=== PATIENT | male | born 1985 | race Caucasian/White ===

== ENCOUNTER 2018-02-27 09:57 | Outpatient (CLI) | payer MEDICAID, SELFPAY ==
[2018-02-27 10:52] LABS: Abs Immature Grans 0.02 k/cumm (0.0-0.09); Absolute Basophil Count 0.05 k/cumm (0.0-0.2); Absolute Eosinophil Count 0.14 k/cumm (0.0-0.7); Absolute Lymphocyte Count 3.72 k/cumm (1.2-3.4); Absolute Monocyte Count 0.57 k/cumm (0.11-0.7); Absolute Neutrophil Count 4.61 k/cumm (1.2-6.7); Basophils % 0.5; Eosinophils % 1.5; HCT 36.1 % (40.0-50.0); HGB 9.7 g/dL (13.5-17.5); Immature Grans % 0.2; Lymphocytes % 40.8; Mean Corp. HGB Concentration 26.9 g/dL (32.0-36.0); Mean Corpuscular Hemoglobin 18.6 pg (27.0-33.0); Mean Corpuscular Volume 69.3 fL (80-95); Mean Platelet Volume 10.4 fL (8.0-11.0); Monocytes % 6.3; Neutrophils % 50.7; Platelet Count 470 x1000/uL (130-400); RBC 5.21 m/cumm (4.50-6.00); RBC Distribution Width 21.8 % (11.8-14.1); White Blood Cell Count 9.11 k/cumm (4.4-10.8)
[2018-02-27 12:01] LABS: Anisocytosis 2+; Diff Comment RBC Morph Reviewed; Hypochromasia 3+; Microcytosis 3+; Polychromasia Present
[2018-02-27 12:02] LABS: Poikilocytes 2+
[2018-02-27 13:07] LABS: ALT 35 U/L (12-78); AST 24 U/L (15-37); Albumin 3.8 g/dL (3.4-5.0); Alkaline Phosphatase 100 U/L (46-116); Anion Gap 20.7 mmol/L (3-11); BUN 14 mg/dL (7-18); Bilirubin, Total 0.2 mg/dL (0.2-1.0); CO2 22.3 mmol/L (21.0-32.0); CREATININE 1.03 mg/dL (0.70-1.30); Chloride 100 mmol/L (98-107); Glucose 129 mg/dL (70-100); Potassium 3.3 mmol/L (3.5-5.1); Sodium 143 mmol/L (136-145); Total Protein 8.2 g/dL (6.4-8.2)
== END 2018-02-27 10:17 ==
PROVIDERS: PCP Family Medicine; Visit Provider Family Medicine
DX: D63.8 Anemia in other chronic diseases classified elsewhere (principal); R53.83 Other fatigue; G80.9 Cerebral palsy, unspecified
CPT/HCPCS: 36415; 80053; 85025

== ENCOUNTER 2018-02-27 11:36 | Outpatient (REF) | payer MEDICAID, SELFPAY ==
[2018-02-27 12:47] LABS: Bilirubin Negative (Negative); Blood Trace-intact (Negative); Clarity Sl Cloudy; Glucose Negative (Negative); Ketones Negative (Negative); Leukocyte Esterase Moderate (Negative); Nitrite Negative (Negative); Specific Gravity 1.015 (1.005-1.025)
[2018-02-27 13:07] LABS: Bacteria Moderate HPF (Negative); Crystals Mod Calcium Oxalate HPF (Negative); Epithelial Cells Few HPF (Negative); Other Cells Negative (Negative); WBC >50 HPF (0-5)
[2018-02-27 13:08] LABS: C & S Indicated? Yes; Casts Negative LPF (Negative); Mucus Negative (Negative)
== END 2018-02-27 11:56 ==
LOC: LBN 11:36
PROVIDERS: PCP Family Medicine; Visit Provider Family Medicine
DX: R53.83 Other fatigue (principal)
CPT/HCPCS: 87077; 81003; 81015; 87086; 87186

== ENCOUNTER 2018-03-06 16:29 | Observation (INO) | payer MEDICAID, SELFPAY ==
[2018-03-06] VITALS (10 sets, daily range): BP systolic 100–168; BP diastolic 64–84; PULSE 56–86; RESP 8–18; TEMP 35.6–36.4; O2SAT 96–100
--- NOTE | 2018-03-06 16:38 | DI.CT_ITS ---
SYMPTOM/DIAGNOSIS: UNRESPONSIVE NONCONTRAST HEAD CT: A noncontrast cranial CT was performed. 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 No evidence of acute intracranial hemorrhage, mass effect or midline shift. CONCLUSION: No evidence of acute change.
--- NOTE | 2018-03-06 16:38 | DI.RAD_ITS ---
SYMPTOM/DIAGNOSIS: UNRESPONSIVE AP CHEST: Note is again made of previously described scoliosis. The heart is not enlarged and the lungs are clear. CONCLUSION: No evidence of acute disease.
--- NOTE | 2018-03-06 16:44 | W.ED.GENAD ---
Discharge Plan Disposition Patient Disposition: [facility] INPATIENT Condition: Serious Discharge Details Chief Complaint: AMS/LOC Clinical Impression: Altered mental status, History of cerebral palsy Reason For Visit: CHANGE MENTAL STATUS Admit Date/Time: 03/06/18 19:20 Admit Provider: Eran Hawk Attending Provider: Eran Hawk Primary Care Provider: Pascual Johnson ED Provider: Luh Banuelos Hospital Course Hospital Course: Mr Holloway is a 32 year old male with PMHx of cerebral palsy, developmental delay, seizure disorder, hydrocephalus s/p [employer]ICE [employer] CLERK shunt, who was admitted to [facility] on 03/06/18 after a witnessed episode of unresponsiveness without any tonic clonic activity. The patient was already being treated as an outpatient for a UTI with bactrim. His UA still showed pyuria on admission. He was initiated on rocephin. CT of his abdomen/pelvis done without contrast today reveals 2 large kidney stones (9 x 6 mm stone, 10 mm stone, both on the Right, causing obstruction/hydroureter). There is also a question of aspiration pneumonia vs atelectasis seen on CT (the patient did have vomiting overnight). The patient came in with elevated carbamazepine level, but it has since normalized. The patient had been hypotensive all day today, but is fluid responsive. His antibiotics were changed to zosyn with the findings of possible aspiration pneumonia on CT. He is hemodynamically stable for transfer to [facility] [place] where he can have urology evaluation/surgical intervention, which we are unable to provide here at [facility] today. He was accepted by Dr Scott of medicine with Dr Cardenas of urology agreeing to consult/perform procedure on patient tomorrow. The patient is not able to consent to procedures. His guardian is George Gaffney, whose paperwork is being forwarded with the patient. Woody Thornton is the on-call public guardian for the [facility] who consented to transfer the patient to [facility] [place]. We appreciate the help of our [facility] [place] colleagues and wish the patient well. Discharge Instructions Forms: Nursing Discharge Form Discharge Data Discharge Date/Time-TO BE ENTERED AT DEPARTURE: 03/06/18 20:12 Medical Decision Making <STACI Tran - Last Filed: 03/10/18 10:50> Patient is a 32-year-old male presenting today, brought in by mother, with chief complaint of unresponsiveness to begin just prior to arrival. She described the patient is limp and unresponsive. Patient does have extensive medical history, please see HPI. At the time of exam, he is unresponsive, he is responsive to painful stimuli. Gag reflex is intact, vital signs are stable and he is protecting his airway. He could be cool at 36.4 ?C with a rectal temp. Blood pressure is 115/73, pulse 82. Oxygen is 98% on room air. Mother does not feel that this is a post ictal event. Reports that this is unusual for postictal behavior for the patient. She does report that his last seizure was approximately 1 week ago. She is currently being treated for urinary tract infection . Patient is incontinent at baseline. She denies any ingestion or exposure to any unusual substance. Denies any trauma. Blood glucose 153 . EKG reviewed by NICHOLE Shelby with rate 62 with no acute ischemic changes. I have ordered a head CT, chest x-ray, laboratory evaluation and urinalysis. Nursing staff will straight cath the patient. At the end of my shift, care was transitioned to Dr. Banuelos with results pending. <Luh Banuelos, DO - Last Filed: 03/07/18 15:25> Please see Massiel Granados's note for initial presentation, exam, and plan. Patient is a 32-year-old male with history of MR, cerebral palsy, blindness, hydrocephalus, seizures, nonverbal and non ambulatory and wheelchair bound at baseline who presents after being found unresponsive today. Caregiver states he was at his baseline this morning and this afternoon and ate well but then awoke from his nap and appeared more unresponsive. He has a history of seizures which she has 3 times monthly. Last seizure was yesterday for which she gave Diastat rectal as well as an extra dose of Tegretol this morning. He states he does not seem postictal as he usually is responsive with touch after this and he did not seem responsive this afternoon after his nap. She states that he opens his eyes at baseline but has not been opening his eyes since this afternoon and not responding to her touch. Patient has normal vital signs. Afebrile. His skin color is jaundiced appearing. Patient had positive gag reflex his airway on arrival. Full altered mental status workup initiated by Massiel on arrival including labs, urinalysis, lactate, blood cultures, CT head, chest x-ray and bolus IV fluids. Plan upon endorsement was to follow-up on labs and likely plan for admission. 1800 --labs and imaging reviewed. CT head and chest x-ray no acute findings. Normal white blood cell count. Hemoglobin stable at 9. Bands 2. Potassium 3.2. Lactate 1.6. Normal liver enzymes. Lipase and TSH within normal limits. Urinalysis notes 20-50 WBCs and trace leukocyte esterase. UDS positive for benzodiazepines but remainder of toxicology screen negative. Caregiver states that patient still altered compared to baseline. Patient moved around in the bed during examination but she states he is usually more active and responsive than this. Discussed with caregiver that the differential diagnosis can include seizure and postictal state, UTI, dehydration. At this point in time with a normal white blood cell count, afebrile, no tachycardia, normal blood pressure, do not suspect meningitis and will defer on LP at this time and Dr. Hawk agreeable at this time. Caregiver okay with plan for admission. 1830 -- d/w hospitalist - accepts pt for admission. Medical Records Medical records reviewed: Yes I reviewed the patient's medical records. Imaging Data Radiologic Study: Radiologist's impression: CT Head Without Contrast EXAM DATE/TIME: 03/06/2018 5:08 PM FINDINGS: Tubes, catheters and devices: There is a stable appearance to 2 left parietal ventriculostomy catheters. 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 There is prominence of sulci greater on the left, with a smaller left cerebral hemisphere compared to the right. The cerebellum appears small as well. Ventricles: Ventricles again appear slitlike. Bones/joints: Normal. No acute fracture. Sinuses: Normal as visualized. No acute sinusitis. Mastoid air cells: Normal as visualized. No mastoid effusion. Soft tissues: Normal. IMPRESSION: 1. There is a stable appearance to 2 left parietal ventriculostomy catheters. 2. Ventricles again appear slitlike. Radiologic Study #2: Attestation: I personally reviewed and interpreted this imaging study as follows: Radiologist's impression: XR Chest, 1 View EXAM DATE/TIME: 03/06/2018 5:16 PM FINDINGS: Lungs: Unremarkable. No consolidation. Pleural space: Unremarkable. No pleural effusion. No pneumothorax. Heart/Mediastinum: Unremarkable. No cardiomegaly. Bones/joints: There is marked levoscoliosis of the midlumbar spine, with rotatory scoliosis as well. This was seen previously as well. IMPRESSION: No acute abnormality is seen. Lab Data Lab results reviewed: Yes I reviewed the patient's lab results. 03/06/18 17:00 Urine - Reflex from Ua Urine Culture - Preliminary 03/06/18 16:38 Blood Blood Culture - Pending Laboratory Tests Range/Units 03/06/18 03/06/18 03/06/18 16:48 16:48 16:48 WBC (4.4-10.8) k/cumm 10.27 RBC (4.50-6.00) m/cumm 4.75 Hgb (13.5-17.5) g/dL 9.0 L Hct (40.0-50.0) % 31.8 L MCV (80-95) fL 66.9 L MCH (27.0-33.0) pg 18.9 L MCHC (32.0-36.0) g/dL 28.3 L RDW (11.8-14.1) % 20.4 H Plt Count (130-400) x1000/uL 532 H MPV (8.0-11.0) fL 9.6 Immature Gran % See Differential Neutrophils % 54.0 Lymphocytes % 28.0 Monocytes % 8.0 Eosinophils % 4.0 Basophils % 0.0 Absolute Neutrophils (1.2-6.7) k/cumm 5.75 Band Neutrophils % 2.0 Absolute Lymphocytes (1.2-3.4) k/cumm 3.29 Absolute Monocytes (0.11-0.7) k/cumm 0.82 H Absolute Eosinophils (0.0-0.7) k/cumm 0.41 Absolute Basophils (0.0-0.2) k/cumm 0.00 Metamyelocytes % 0.0 Myelocytes % 0.0 Promyelocytes % 0 Differential Comment Manual differential Atypical Lymphocytes 4 Other Cell Type 0 RBC Morphology See below Polychromasia Present Hypochromasia 2+ Anisocytosis 2+ Microcytosis 3+ Ovalocytes Sodium (136-145) mmol/L 138 Potassium (3.5-5.1) mmol/L 3.2 L Chloride (98-107) mmol/L 100 Carbon Dioxide (21.0-32.0) mmol/L 26.7 Anion Gap (3-11) mmol/L 11.3 H BUN (7-18) mg/dL 15 Creatinine (0.70-1.30) mg/dL 0.91 Estimated GFR/1.73 m2 (mL/min/1.73m2) >= 60.00 Glucose (70-100) mg/dL 152 H Lactate (0.6-1.4) mmol/L 1.5 H Calcium (8.5-10.1) mg/dL 8.8 Magnesium (1.8-2.4) mg/dL Total Bilirubin (0.2-1.0) mg/dL 0.2 AST (15-37) U/L 23 ALT (12-78) U/L 34 Alkaline Phosphatase (46-116) U/L 91 Total Protein (6.4-8.2) g/dL 7.8 Albumin (3.4-5.0) g/dL 3.6 Lipase (73-393) U/L 132 TSH (0.358-3.74) uIU/mL 1.01 Urine Color (Yellow) Urine Clarity Urine pH (5-8) Ur Specific [place] (1.005-1.025) Urine Protein (Negative) mg/dL Urine Ketones (Negative) mg/dL Urine Blood (Negative) Urine Nitrite (Negative) Urine Bilirubin (Negative) Urine Urobilinogen (Up TO 0.2) EU/dL Ur Leukocyte Esterase (Negative) Urine RBC (0-2) Urine WBC (0-5) HPF Ur Epithelial Cells (Negative) HPF Urine Crystals (Negative) HPF Urine Bacteria (Negative) HPF Urine Casts (Negative) LPF Urine Mucus (Negative) Ur Culture Indicated? Urine Glucose (Negative) mg/dL Salicylates (2.8-20.0) mg/dL < 2.8 L Urine Opiates Screen (Negative) Urine Methadone Screen (Negative) Acetaminophen (10-30) ug/mL < 2 L Ur Barbiturates Screen (Negative) Carbamazepine (4.0-12.0) ug/mL Ur Tricyclics Screen (Negative) Ur Amphetamines Screen (Negative) U Benzodiazepines Scrn (Negative) Urine Cocaine Screen (Negative) Ur THC Screen (Negative) Range/Units 03/06/18 03/06/18 03/06/18 17:00 17:00 18:30 WBC (4.4-10.8) k/cumm RBC (4.50-6.00) m/cumm Hgb (13.5-17.5) g/dL Hct (40.0-50.0) % MCV (80-95) fL MCH (27.0-33.0) pg MCHC (32.0-36.0) g/dL RDW (11.8-14.1) % Plt Count (130-400) x1000/uL MPV (8.0-11.0) fL Immature Gran % Neutrophils % Lymphocytes % Monocytes % Eosinophils % Basophils % Absolute Neutrophils (1.2-6.7) k/cumm Band Neutrophils % Absolute Lymphocytes (1.2-3.4) k/cumm Absolute Monocytes (0.11-0.7) k/cumm Absolute Eosinophils (0.0-0.7) k/cumm Absolute Basophils (0.0-0.2) k/cumm Metamyelocytes % Myelocytes % Promyelocytes % Differential Comment Atypical Lymphocytes Other Cell Type RBC Morphology Polychromasia Hypochromasia Anisocytosis Microcytosis Ovalocytes Sodium (136-145) mmol/L Potassium (3.5-5.1) mmol/L Chloride (98-107) mmol/L Carbon Dioxide (21.0-32.0) mmol/L Anion Gap (3-11) mmol/L BUN (7-18) mg/dL Creatinine (0.70-1.30) mg/dL Estimated GFR/1.73 m2 (mL/min/1.73m2) Glucose (70-100) mg/dL Lactate (0.6-1.4) mmol/L 1.6 H Calcium (8.5-10.1) mg/dL Magnesium (1.8-2.4) mg/dL Total Bilirubin (0.2-1.0) mg/dL AST (15-37) U/L ALT (12-78) U/L Alkaline Phosphatase (46-116) U/L Total Protein (6.4-8.2) g/dL Albumin (3.4-5.0) g/dL Lipase (73-393) U/L TSH (0.358-3.74) uIU/mL Urine Color (Yellow) Yellow Urine Clarity Clear Urine pH (5-8) 5.5 Ur Specific [place] (1.005-1.025) 1.020 Urine Protein (Negative) mg/dL Negative Urine Ketones (Negative) mg/dL Negative Urine Blood (Negative) Moderate H Urine Nitrite (Negative) Negative Urine Bilirubin (Negative) Negative Urine Urobilinogen (Up TO 0.2) EU/dL 0.2 Ur Leukocyte Esterase (Negative) Trace H Urine RBC (0-2) 10-20 H Urine WBC (0-5) HPF 20-50 Ur Epithelial Cells (Negative) HPF Rare Urine Crystals (Negative) HPF Negative Urine Bacteria (Negative) HPF Rare Urine Casts (Negative) LPF Negative Urine Mucus (Negative) Trace Ur Culture Indicated? Yes Urine Glucose (Negative) mg/dL Negative Salicylates (2.8-20.0) mg/dL Urine Opiates Screen (Negative) Negative Urine Methadone Screen (Negative) Negative Acetaminophen (10-30) ug/mL Ur Barbiturates Screen (Negative) Negative Carbamazepine (4.0-12.0) ug/mL Ur Tricyclics Screen (Negative) Negative Ur Amphetamines Screen (Negative) Negative U Benzodiazepines Scrn (Negative) Positive Urine Cocaine Screen (Negative) Negative Ur THC Screen (Negative) Negative Range/Units 03/06/18 03/07/18 03/07/18 18:30 06:50 11:15 WBC (4.4-10.8) k/cumm RBC (4.50-6.00) m/cumm Hgb (13.5-17.5) g/dL Hct (40.0-50.0) % MCV (80-95) fL MCH (27.0-33.0) pg MCHC (32.0-36.0) g/dL RDW (11.8-14.1) % Plt Count (130-400) x1000/uL MPV (8.0-11.0) fL Immature Gran % Neutrophils % Lymphocytes % Monocytes % Eosinophils % Basophils % Absolute Neutrophils (1.2-6.7) k/cumm Band Neutrophils % Absolute Lymphocytes (1.2-3.4) k/cumm Absolute Monocytes (0.11-0.7) k/cumm Absolute Eosinophils (0.0-0.7) k/cumm Absolute Basophils (0.0-0.2) k/cumm Metamyelocytes % Myelocytes % Promyelocytes % Differential Comment Atypical Lymphocytes Other Cell Type RBC Morphology Polychromasia Hypochromasia Anisocytosis Microcytosis Ovalocytes Sodium (136-145) mmol/L 141 Potassium (3.5-5.1) mmol/L 4.0 D Chloride (98-107) mmol/L 107 Carbon Dioxide (21.0-32.0) mmol/L 25.0 Anion Gap (3-11) mmol/L 9.0 BUN (7-18) mg/dL 10 Creatinine (0.70-1.30) mg/dL 0.69 L Estimated GFR/1.73 m2 (mL/min/1.73m2) >= 60.00 Glucose (70-100) mg/dL 98 D Lactate (0.6-1.4) mmol/L Calcium (8.5-10.1) mg/dL 9.0 Magnesium (1.8-2.4) mg/dL 2.0 Total Bilirubin (0.2-1.0) mg/dL AST (15-37) U/L ALT (12-78) U/L Alkaline Phosphatase (46-116) U/L Total Protein (6.4-8.2) g/dL Albumin (3.4-5.0) g/dL Lipase (73-393) U/L TSH (0.358-3.74) uIU/mL Urine Color (Yellow) Urine Clarity Urine pH (5-8) Ur Specific [place] (1.005-1.025) Urine Protein (Negative) mg/dL Urine Ketones (Negative) mg/dL Urine Blood (Negative) Urine Nitrite (Negative) Urine Bilirubin (Negative) Urine Urobilinogen (Up TO 0.2) EU/dL Ur Leukocyte Esterase (Negative) Urine RBC (0-2) Urine WBC (0-5) HPF Ur Epithelial Cells (Negative) HPF Urine Crystals (Negative) HPF Urine Bacteria (Negative) HPF Urine Casts (Negative) LPF Urine Mucus (Negative) Ur Culture Indicated? Urine Glucose (Negative) mg/dL Salicylates (2.8-20.0) mg/dL Urine Opiates Screen (Negative) Urine Methadone Screen (Negative) Acetaminophen (10-30) ug/mL Ur Barbiturates Screen (Negative) Carbamazepine (4.0-12.0) ug/mL 23.8 H* 9.5 Ur Tricyclics Screen (Negative) Ur Amphetamines Screen (Negative) U Benzodiazepines Scrn (Negative) Urine Cocaine Screen (Negative) Ur THC Screen (Negative) Below labs populated into chart after pt admitted and not interpreted or followed by me (Dr. Banuelos) after admission. Range/Units 03/07/18 03/07/18 11:15 11:15 WBC (4.4-10.8) k/cumm 9.93 RBC (4.50-6.00) m/cumm 4.14 L Hgb (13.5-17.5) g/dL 7.7 L Hct (40.0-50.0) % 28.3 L MCV (80-95) fL 68.4 L MCH (27.0-33.0) pg 18.6 L MCHC (32.0-36.0) g/dL 27.2 L RDW (11.8-14.1) % 20.6 H Plt Count (130-400) x1000/uL 531 H MPV (8.0-11.0) fL 9.9 Immature Gran % 0.2 Neutrophils % 73.2 Lymphocytes % 16.4 Monocytes % 8.3 Eosinophils % 1.6 Basophils % 0.3 Absolute Neutrophils (1.2-6.7) k/cumm 7.27 H Band Neutrophils % Absolute Lymphocytes (1.2-3.4) k/cumm 1.63 Absolute Monocytes (0.11-0.7) k/cumm 0.82 H Absolute Eosinophils (0.0-0.7) k/cumm 0.16 Absolute Basophils (0.0-0.2) k/cumm 0.03 Metamyelocytes % Myelocytes % Promyelocytes % Differential Comment Rbc morph reviewed Atypical Lymphocytes Other Cell Type RBC Morphology See below Polychromasia Hypochromasia 3+ Anisocytosis Microcytosis 2+ Ovalocytes 2+ Sodium (136-145) mmol/L Potassium (3.5-5.1) mmol/L Chloride (98-107) mmol/L Carbon Dioxide (21.0-32.0) mmol/L Anion Gap (3-11) mmol/L BUN (7-18) mg/dL Creatinine (0.70-1.30) mg/dL Estimated GFR/1.73 m2 (mL/min/1.73m2) Glucose (70-100) mg/dL Lactate (0.6-1.4) mmol/L 1.2 Calcium (8.5-10.1) mg/dL Magnesium (1.8-2.4) mg/dL Total Bilirubin (0.2-1.0) mg/dL AST (15-37) U/L ALT (12-78) U/L Alkaline Phosphatase (46-116) U/L Total Protein (6.4-8.2) g/dL Albumin (3.4-5.0) g/dL Lipase (73-393) U/L TSH (0.358-3.74) uIU/mL Urine Color (Yellow) Urine Clarity Urine pH (5-8) Ur Specific [place] (1.005-1.025) Urine Protein (Negative) mg/dL Urine Ketones (Negative) mg/dL Urine Blood (Negative) Urine Nitrite (Negative) Urine Bilirubin (Negative) Urine Urobilinogen (Up TO 0.2) EU/dL Ur Leukocyte Esterase (Negative) Urine RBC (0-2) Urine WBC (0-5) HPF Ur Epithelial Cells (Negative) HPF Urine Crystals (Negative) HPF Urine Bacteria (Negative) HPF Urine Casts (Negative) LPF Urine Mucus (Negative) Ur Culture Indicated? Urine Glucose (Negative) mg/dL Salicylates (2.8-20.0) mg/dL Urine Opiates Screen (Negative) Urine Methadone Screen (Negative) Acetaminophen (10-30) ug/mL Ur Barbiturates Screen (Negative) Carbamazepine (4.0-12.0) ug/mL Ur Tricyclics Screen (Negative) Ur Amphetamines Screen (Negative) U Benzodiazepines Scrn (Negative) Urine Cocaine Screen (Negative) Ur THC Screen (Negative) HPI <STACI Tran - Last Filed: 03/10/18 10:50> General Mode of arrival: wheelchair. Date/Time Provider Initiated Documentation: 03/06/18 16:36. Limitations to Documentation: altered mental status. Information obtained by: family. HPI Narrative: Patient 32-year-old male with history of GERD, epilepsy, mental retardation, scoliosis, hydrocephalus, CP, incontinence, blindness, Mckenzie's esophagus, anemia, brought in by mother today with chief complaint of unresponsiveness. She reports a prior to his nap today he was at his baseline. Patient is nonverbal at baseline. However, she reports that when he awoke from his nap he became limp and unresponsive. She reports that he is currently being treated for a urinary tract infection. Denies any recent changes medications. Denies any known trauma. Denies any fevers or chills. Denies any ingestions. Mother reports that he had typical lunch prior to nap. She does report that he is currently being treated for urinary tract infection Related Data Home Medications Medication Instructions Recorded Confirmed Perla Protect 1 gm PRN PRN 05/31/17 03/06/18 nystatin 1 gm PRN PRN 05/31/17 02/24/18 Pediatric Balanced Nutrition 1 bottle PO BID #60 bottle 07/08/17 03/06/18 acetaminophen 650 mg RC Q4H PRN #90 supp MDD 08/08/17 03/06/18 3000 mg docusate sodium 100 mg capsule 100 mg PO BID #180 cap 11/21/17 03/06/18 polyethylene glycol 3350 17 gram 17 gm PO DAILY PRN #90 each 12/26/17 02/24/18 oral powder packet Tegretol XR 400 mg tablet,extended 400 mg PO BID #200 tab-cap NS 02/24/18 03/06/18 release cholecalciferol (vitamin D3) 1,000 1,000 unit PO DAILY #100 tab-cap 02/24/18 03/06/18 unit tablet epinephrine 0.3 mg/0.3 mL 0.3 mg IM ONCE #2 pen 02/24/18 03/06/18 injection, auto-injector gabapentin 800 mg tablet 800 mg PO TID #270 tab 02/24/18 03/06/18 multivitamin tablet 1 tab PO DAILY #100 tab-cap 02/24/18 03/06/18 pantoprazole 40 mg tablet,delayed 40 mg PO BID #180 tab-cap 02/24/18 02/24/18 release pyridoxine (vitamin B6) 50 mg 50 mg PO DAILY #90 cap 02/24/18 02/24/18 capsule simethicone 80 mg chewable tablet 80 mg PO AC #100 tab.chew 02/24/18 02/24/18 clonazepam 0.5 mg PO ONCE PRN 03/06/18 03/06/18 piperacillin-tazobactam [Zosyn] 3.375 gm IV Q8H #10 each 03/07/18 Previous Rx's Medication Instructions Recorded acetaminophen 650 mg RC Q4H PRN #90 supp MDD 08/08/17 3000 mg docusate sodium 100 mg capsule 100 mg PO BID #180 cap 11/21/17 polyethylene glycol 3350 17 gram 17 gm PO DAILY PRN #90 each 12/26/17 oral powder packet Tegretol XR 400 mg tablet,extended 400 mg PO BID #200 tab-cap NS 02/24/18 release cholecalciferol (vitamin D3) 1,000 1,000 unit PO DAILY #100 tab-cap 02/24/18 unit tablet epinephrine 0.3 mg/0.3 mL 0.3 mg IM ONCE #2 pen 02/24/18 injection, auto-injector gabapentin 800 mg tablet 800 mg PO TID #270 tab 02/24/18 multivitamin tablet 1 tab PO DAILY #100 tab-cap 02/24/18 pantoprazole 40 mg tablet,delayed 40 mg PO BID #180 tab-cap 02/24/18 release pyridoxine (vitamin B6) 50 mg 50 mg PO DAILY #90 cap 02/24/18 capsule simethicone 80 mg chewable tablet 80 mg PO AC #100 tab.chew 02/24/18 piperacillin-tazobactam [Zosyn] 3.375 gm IV Q8H #10 each 03/07/18 Allergies Allergy/AdvReac Type Severity Reaction Status Date / Time latex Allergy Severe ANAPHYLAXIS Unverified 03/06/18 17:16 venom-honey bee Allergy Unknown Unverified 03/06/18 17:16 General Stated Complaint: AMS/LOC JUANJO: 1 Review of Systems <STACI Tran - Last Filed: 03/10/18 10:50> Review of Systems Unobtainable due to mental condition [facility] <STACI Tran - Last Filed: 03/10/18 10:50> Medical History GERD (gastroesophageal reflux disease) (Chronic) Vitamin D deficiency (Chronic) Focal epilepsy with impairment of consciousness, intractable (Chronic) Mental retardation (Chronic) Idiopathic scoliosis (Chronic) Hydrocephalus (Chronic 04/30/14) Cerebral palsy (Chronic) Bowel and bladder incontinence (Chronic 01/28/14) Blindness of both eyes (Chronic) 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 Sister Neoplasm Maternal Grandfather Cancer Maternal Grandmother Cancer Brother No problems noted. Social History caregiver/support person: Yes household members: caregiver housing: house lives independently: No number of children: 0 current occupational status: disabled pets and animals: No frequency: does not exercise Smoking/Tobacco Use Status: Never alcohol intake: never substance use type: does not use kathryn/restoration: None special kathryn needs: No seatbelt use: always Exam <STACI Tran - Last Filed: 03/10/18 10:50> Const General: frail appearing and lethargic Nutritional Appearance: cachectic and thin Orientation: obtunded Limitations: altered mental status, behavioral limitations, language barrier and physical limitations [facility] Head: normal to inspection, normocephalic and atraumatic General nose exam: external nose normal and nares normal Face and sinus: normal facial exam, sinuses nontender and face symmetric Mouth: oral mucosae normal, lip normal, tongue normal, oropharynx normal, moist mucous membranes and other (gag intact) Throat: posterior oropharynx normal, tonsils normal and uvula midline Resp Effort & Inspection: normal respiratory effort, able to speak in complete sentences and no respiratory distress Auscultation: clear to auscultation bilaterally, no rales, no rhonchi and no wheezes Cardio Rate: regular rate Rhythm: regular rhythm Heart Sounds: S1 normal and S2 normal GI Inspection: scar (has multiple surgical incisions which appear to have healed well) Palpation: soft, not firm, no guarding and not rigid Skin General skin exam: jaundice (around face) Neuro General: gait abnormal, tone abnormal and does not move all extremities Cranial Nerves: gag reflex normal Course <STACI Tran - Last Filed: 03/10/18 10:50> Vital Signs Temperature 36.4 C L 03/06/18 16:35 Pulse 82 03/06/18 16:35 Respiratory Rate 8 L 03/06/18 16:35 Blood Pressure 115/73 03/06/18 16:35 Pulse Oximetry 98 03/06/18 16:35 Temperature 36.4 C L 03/06/18 16:35 Temperature Source Temporal Artery Scan 03/06/18 16:35 Pulse 82 03/06/18 16:35 Respiratory Rate 8 L 03/06/18 16:35 Blood Pressure 115/73 03/06/18 16:35 Pulse Oximetry 98 03/06/18 16:35 Oxygen Delivery Method Room Air 03/06/18 16:35 Oxygen Flow Rate 0 03/06/18 16:35 Lab/Test Results Lab/Test Results: 03/06/18 16:42 Blood Blood Culture - Pending Sign Out <STACI Tran - Last Filed: 03/10/18 10:50> Sign Out Data: Sign Out Comment: At the end of shift, care transitioned to Dr. Banuelos with labs and imaging pending. Last updated by Massiel Granados PA at 03/06/18 17:22
[2018-03-06 16:57] LABS: Abs Immature Grans 0.02 k/cumm (0.0-0.09); HCT 31.8 % (40.0-50.0); Mean Corp. HGB Concentration 28.3 g/dL (32.0-36.0); Mean Corpuscular Hemoglobin 18.9 pg (27.0-33.0); Mean Corpuscular Volume 66.9 fL (80-95); Mean Platelet Volume 9.6 fL (8.0-11.0); Platelet Count 532 x1000/uL (130-400); RBC 4.75 m/cumm (4.50-6.00); RBC Distribution Width 20.4 % (11.8-14.1); White Blood Cell Count 10.27 k/cumm (4.4-10.8)
[2018-03-06] MEDS: Normal Saline 1,000 ML 1000 ML IV (17:00)
--- NOTE | 2018-03-06 17:01 | NUR.NOTE ---
patient responsive to painful stimuli, abnormal for psatient per caregivefr Nursing Note:
[2018-03-06 17:06] LABS: Bilirubin Negative (Negative); Blood Moderate (Negative); Clarity Clear; Glucose Negative (Negative); Ketones Negative (Negative); Leukocyte Esterase Trace (Negative); Nitrite Negative (Negative); Urobilinogen 0.2 EU/dL (Up TO 0.2); pH 5.5 (5-8)
--- NOTE | 2018-03-06 17:07 | ED.GENADUL_ITS ---
Discharge Plan Disposition Patient Disposition: [facility] INPATIENT Condition: Serious Discharge Details Chief Complaint: AMS/LOC Clinical Impression: Altered mental status, History of cerebral palsy Reason For Visit: CHANGE MENTAL STATUS Admit Date/Time: 03/06/18 19:20 Admit Provider: Eran Hawk Attending Provider: Eran Hawk Primary Care Provider: Pascual Johnson ED Provider: Luh Banuelos Hospital Course Hospital Course: Mr Holloway is a 32 year old male with PMHx of cerebral palsy, developmental delay, seizure disorder, hydrocephalus s/p [employer] shunt, who was admitted to [facility] on 03/06/18 after a witnessed episode of unresponsiveness without any tonic clonic activity. The patient was already being treated as an outpatient for a UTI with bactrim. His UA still showed pyuria on admission. He was initiated on rocephin. CT of his abdomen/pelvis done without contrast today reveals 2 large kidney stones (9 x 6 mm stone, 10 mm stone, both on the Right, causing obstruction/hydroureter). There is also a question of aspiration pneumonia vs atelectasis seen on CT (the patient did have vomiting overnight). The patient came in with elevated carbamazepine level, but it has since normalized. The patient had been hypotensive all day today, but is fluid responsive. His antibiotics were changed to zosyn with the findings of possible aspiration pneumonia on CT. He is hemodynamically stable for transfer to [facility] where he can have urology evaluation/surgical intervention, which we are unable to provide here at [facility] today. He was accepted by Dr Scott of medicine with Dr Cardenas of urology agreeing to consult/perform procedure on patient tomorrow. The patient is not able to consent to procedures. His guardian is eGorge Gaffney, whose paperwork is being forwarded with the patient. Woody Thornton is the on-call public guardian for the [facility] who consented to transfer the patient to [facility]. We appreciate the help of our [facility] colleagues and wish the patient well. Discharge Instructions Forms: Nursing Discharge Form Discharge Data Discharge Date/Time-TO BE ENTERED AT DEPARTURE: 03/06/18 20:12 Medical Decision Making <STACI Tran - Last Filed: 03/10/18 10:50> Patient is a 32-year-old male presenting today, brought in by mother, with chief complaint of unresponsiveness to begin just prior to arrival. She described the patient is limp and unresponsive. Patient does have extensive medical history, please see HPI. At the time of exam, he is unresponsive, he is responsive to painful stimuli. Gag reflex is intact, vital signs are stable and he is protecting his airway. He could be cool at 36.4 ?C with a rectal temp. Blood pressure is 115/73, pulse 82. Oxygen is 98% on room air. Mother does not feel that this is a post ictal event. Reports that this is unusual for postictal behavior for the patient. She does report that his last seizure was approximately 1 week ago. She is currently being treated for urinary tract infection . Patient is incontinent at baseline. She denies any ingestion or exposure to any unusual substance. Denies any trauma. Blood glucose 153 . EKG reviewed by NICHOLE Shelby with rate 62 with no acute ischemic changes. I have ordered a head CT, chest x-ray, laboratory evaluation and urinalysis. Nursing staff will straight cath the patient. At the end of my shift, care was transitioned to Dr. Banuelos with results pending. <Luh Banuelos, DO - Last Filed: 03/07/18 15:25> Please see Massiel Granados's note for initial presentation, exam, and plan. Patient is a 32-year-old male with history of MR, cerebral palsy, blindness, hydrocephalus, seizures, nonverbal and non ambulatory and wheelchair bound at baseline who presents after being found unresponsive today. Caregiver states he was at his baseline this morning and this afternoon and ate well but then awoke from his nap and appeared more unresponsive. He has a history of seizures which she has 3 times monthly. Last seizure was yesterday for which she gave Diastat rectal as well as an extra dose of Tegretol this morning. He states he does not seem postictal as he usually is responsive with touch after this and he did not seem responsive this afternoon after his nap. She states that he opens his eyes at baseline but has not been opening his eyes sinc e this afternoon and not responding to her touch. Patient has normal vital signs. Afebrile. His skin color is jaundiced appearing. Patient had positive gag reflex his airway on arrival. Full altered mental status workup initiated by Massiel on arrival including labs, urinalysis, lactate, blood cultures, CT head, chest x-ray and bolus IV fluids. Plan upon endorsement was to follow-up on labs and likely plan for admission. 1800 --labs and imaging reviewed. CT head and chest x-ray no acute findings. Normal white blood cell count. Hemoglobin stable at 9. Bands 2. Potassium 3.2. Lactate 1.6. Normal liver enzymes. Lipase and TSH within normal limits. Urinalysis notes 20-50 WBCs and trace leukocyte esterase. UDS positive for benzodiazepines but remainder of toxicology screen negative. Caregiver states that patient still altered compared to baseline. Patient moved around in the bed during examination but she states he is usually more active and responsive than this. Discussed with caregiver that the differential diagnosis can include seizure and postictal state, UTI, dehydration. At this point in time with a normal white blood cell count, afebrile, no tachycardia, normal blood pressure, do not suspect meningitis and will defer on LP at this time and Dr. Hawk agreeable at this time. Caregiver okay with plan for admission. 1830 -- d/w hospitalist - accepts pt for admission. Medical Records Medical records reviewed: Yes I reviewed the patient's medical records. Imaging Data Radiologic Study: Radiologist's impression: CT Head Without Contrast EXAM DATE/TIME: 03/06/2018 5:08 PM FINDINGS: Tubes, catheters and devices: There is a stable appearance to 2 left parietal ventriculostomy catheters. 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 There is prominence of sulci greater on the left, with a smaller left cerebral hemisphere compared to the right. The cerebellum appears small as well. Ventricles: Ventricles again appear slitlike. Bones/joints: Normal. No acute fracture. Sinuses: Normal as visualized. No acute sinusitis. Mastoid air cells: Normal as visualized. No mastoid effusion. Soft tissues: Normal. IMPRESSION: 1. There is a stable appearance to 2 left parietal ventriculostomy catheters. 2. Ventricles again appear slitlike. Radiologic Study #2: Attestation: I personally reviewed and interpreted this imaging study as follows: Radiologist's impression: XR Chest, 1 View EXAM DATE/TIME: 03/06/2018 5:16 PM FINDINGS: Lungs: Unremarkable. No consolidation. Pleural space: Unremarkable. No pleural effusion. No pneumothorax. Heart/Mediastinum: Unremarkable. No cardiomegaly. Bones/joints: There is marked levoscoliosis of the midlumbar spine, with rotatory scoliosis as well. This was seen previously as well. IMPRESSION: No acute abnormality is seen. Lab Data Lab results reviewed: Yes I reviewed the patient's lab results. 03/06/18 17:00 Urine - Reflex from Ua Urine Culture - Preliminary 03/06/18 16:38 Blood Blood Culture - Pending Laboratory Tests Range/Units 03/06/18 03/06/18 03/06/18 16:48 16:48 16:48 WBC (4.4-10.8) k/cumm 10.27 RBC (4.50-6.00) m/cumm 4.75 Hgb (13.5-17.5) g/dL 9.0 L Hct (40.0-50.0) % 31.8 L MCV (80-95) fL 66.9 L MCH (27.0-33.0) pg 18.9 L MCHC (32.0-36.0) g/dL 28.3 L RDW (11.8-14.1) % 20.4 H Plt Count (130-400) x1000/uL 532 H MPV (8.0-11.0) fL 9.6 Immature Gran % See Differential Neutrophils % 54.0 Lymphocytes % 28.0 Monocytes % 8.0 Eosinophils % 4.0 Basophils % 0.0 Absolute Neutrophils (1.2-6.7) k/cumm 5.75 Band Neutrophils % 2.0 Absolute Lymphocytes (1.2-3.4) k/cumm 3.29 Absolute Monocytes (0.11-0.7) k/cumm 0.82 H Absolute Eosinophils (0.0-0.7) k/cumm 0.41 Absolute Basophils (0.0-0.2) k/cumm 0.00 Metamyelocytes % 0.0 Myelocytes % 0.0 Promyelocytes % 0 Differential Comment Manual differential Atypical Lymphocytes 4 Other Cell Type 0 RBC Morphology See below Polychromasia Present Hypochromasia 2+ Anisocytosis 2+ Microcytosis 3+ Ovalocytes Sodium (136-145) mmol/L 138 Potassium (3.5-5.1) mmol/L 3.2 L Chloride (98-107) mmol/L 100 Carbon Dioxide (21.0-32.0) mmol/L 26.7 Anion Gap (3-11) mmol/L 11.3 H BUN (7-18) mg/dL 15 Creatinine (0.70-1.30) mg/dL 0.91 Estimated GFR/1.73 m2 (mL/min/1.73m2) >= 60.00 Glucose (70-100) mg/dL 152 H Lactate (0.6-1.4) mmol/L 1.5 H Calcium (8.5-10.1) mg/dL 8.8 Magnesium (1.8-2.4) mg/dL Total Bilirubin (0.2-1.0) mg/dL 0.2 AST (15-37) U/L 23 ALT (12-78) U/L 34 Alkaline Phosphatase (46-116) U/L 91 Total Protein (6.4-8.2) g/dL 7.8 Albumin (3.4-5.0) g/dL 3.6 Lipase (73-393) U/L 132 TSH (0.358-3.74) uIU/mL 1.01 Urine Color (Yellow) Urine Clarity Urine pH (5-8) Ur Specific [place] (1.005-1.025) Urine Protein (Negative) mg/dL Urine Ketones (Negative) mg/dL Urine Blood (Negative) Urine Nitrite (Negative) Urine Bilirubin (Negative) Urine Urobilinogen (Up TO 0.2) EU/dL Ur Leukocyte Esterase (Negative) Urine RBC (0-2) Urine WBC (0-5) HPF Ur Epithelial Cells (Negative) HPF Urine Crystals (Negative) HPF Urine Bacteria (Negative) HPF Urine Casts (Negative) LPF Urine Mucus (Negative) Ur Culture Indicated? Urine Glucose (Negative) mg/dL Salicylates (2.8-20.0) mg/dL < 2.8 L Urine Opiates Screen (Negative) Urine Methadone Screen (Negative) Acetaminophen (10-30) ug/mL < 2 L Ur Barbiturates Screen (Negative) Carbamazepine (4.0-12.0) ug/mL Ur Tricyclics Screen (Negative) Ur Amphetamines Screen (Negative) U Benzodiazepines Scrn (Negative) Urine Cocaine Screen (Negative) Ur THC Screen (Negative) Range/Units 03/06/18 03/06/18 03/06/18 17:00 17:00 18:30 WBC (4.4-10.8) k/cumm RBC (4.50-6.00) m/cumm Hgb (13.5-17.5) g/dL Hct (40.0-50.0) % MCV (80-95) fL MCH (27.0-33.0) pg MCHC (32.0-36.0) g/dL RDW (11.8-14.1) % Plt Count (130-400) x1000/uL MPV (8.0-11.0) fL Immature Gran % Neutrophils % Lymphocytes % Monocytes % Eosinophils % Basophils % Absolute Neutrophils (1.2-6.7) k/cumm Band Neutrophils % Absolute Lymphocytes (1.2-3.4) k/cumm Absolute Monocytes (0.11-0.7) k/cumm Absolute Eosinophils (0.0-0.7) k/cumm Absolute Basophils (0.0-0.2) k/cumm Metamyelocytes % Myelocytes % Promyelocytes % Differential Comment Atypical Lymphocytes Other Cell Type RBC Morphology Polychromasia Hypochromasia Anisocytosis Microcytosis Ovalocytes Sodium (136-145) mmol/L Potassium (3.5-5.1) mmol/L Chloride (98-107) mmol/L Carbon Dioxide (21.0-32.0) mmol/L Anion Gap (3-11) mmol/L BUN (7-18) mg/dL Creatinine (0.70-1.30) mg/dL Estimated GFR/1.73 m2 (mL/min/1.73m2) Glucose (70-100) mg/dL Lactate (0.6-1.4) mmol/L 1.6 H Calcium (8.5-10.1) mg/dL Magnesium (1.8-2.4) mg/dL Total Bilirubin (0.2-1.0) mg/dL AST (15-37) U/L ALT (12-78) U/L Alkaline Phosphatase (46-116) U/L Total Protein (6.4-8.2) g/dL Albumin (3.4-5.0) g/dL Lipase (73-393) U/L TSH (0.358-3.74) uIU/mL Urine Color (Yellow) Yellow Urine Clarity Clear Urine pH (5-8) 5.5 Ur Specific [place] (1.005-1.025) 1.020 Urine Protein (Negative) mg/dL Negative Urine Ketones (Negative) mg/dL Negative Urine Blood (Negative) Moderate H Urine Nitrite (Negative) Negative Urine Bilirubin (Negative) Negative Urine Urobilinogen (Up TO 0.2) EU/dL 0.2 Ur Leukocyte Esterase (Negative) Trace H Urine RBC (0-2) 10-20 H Urine WBC (0-5) HPF 20-50 Ur Epithelial Cells (Negative) HPF Rare Urine Crystals (Negative) HPF Negative Urine Bacteria (Negative) HPF Rare Urine Casts (Negative) LPF Negative Urine Mucus (Negative) Trace Ur Culture Indicated? Yes Urine Glucose (Negative) mg/dL Negative Salicylates (2.8-20.0) mg/dL Urine Opiates Screen (Negative) Negative Urine Methadone Screen (Negative) Negative Acetaminophen (10-30) ug/mL Ur Barbiturates Screen (Negative) Negative Carbamazepine (4.0-12.0) ug/mL Ur Tricyclics Screen (Negative) Negative Ur Amphetamines Screen (Negative) Negative U Benzodiazepines Scrn (Negative) Positive Urine Cocaine Screen (Negative) Negative Ur THC Screen (Negative) Negative Range/Units 03/06/18 03/07/18 03/07/18 18:30 06:50 11:15 WBC (4.4-10.8) k/cumm RBC (4.50-6.00) m/cumm Hgb (13.5-17.5) g/dL Hct (40.0-50.0) % MCV (80-95) fL MCH (27.0-33.0) pg MCHC (32.0-36.0) g/dL RDW (11.8-14.1) % Plt Count (130-400) x1000/uL MPV (8.0-11.0) fL Immature Gran % Neutrophils % Lymphocytes % Monocytes % Eosinophils % Basophils % Absolute Neutrophils (1.2-6.7) k/cumm Band Neutrophils % Absolute Lymphocytes (1.2-3.4) k/cumm Absolute Monocytes (0.11-0.7) k/cumm Absolute Eosinophils (0.0-0.7) k/cumm Absolute Basophils (0.0-0.2) k/cumm Metamyelocytes % Myelocytes % Promyelocytes % Differential Comment Atypical Lymphocytes Other Cell Type RBC Morphology Polychromasia Hypochromasia Anisocytosis Microcytosis Ovalocytes Sodium (136-145) mmol/L 141 Potassium (3.5-5.1) mmol/L 4.0 D Chloride (98-107) mmol/L 107 Carbon Dioxide (21.0-32.0) mmol/L 25.0 Anion Gap (3-11) mmol/L 9.0 BUN (7-18) mg/dL 10 Creatinine (0.70-1.30) mg/dL 0.69 L Estimated GFR/1.73 m2 (mL/min/1.73m2) >= 60.00 Glucose (70-100) mg/dL 98 D Lactate (0.6-1.4) mmol/L Calcium (8.5-10.1) mg/dL 9.0 Magnesium (1.8-2.4) mg/dL 2.0 Total Bilirubin (0.2-1.0) mg/dL AST (15-37) U/L ALT (12-78) U/L Alkaline Phosphatase (46-116) U/L Total Protein (6.4-8.2) g/dL Albumin (3.4-5.0) g/dL Lipase (73-393) U/L TSH (0.358-3.74) uIU/mL Urine Color (Yellow) Urine Clarity Urine pH (5-8) Ur Specific [place] (1.005-1.025) Urine Protein (Negative) mg/dL Urine Ketones (Negative) mg/dL Urine Blood (Negative) Urine Nitrite (Negative) Urine Bilirubin (Negative) Urine Urobilinogen (Up TO 0.2) EU/dL Ur Leukocyte Esterase (Negative) Urine RBC (0-2) Urine WBC (0-5) HPF Ur Epithelial Cells (Negative) HPF Urine Crystals (Negative) HPF Urine Bacteria (Negative) HPF Urine Casts (Negative) LPF Urine Mucus (Negative) Ur Culture Indicated? Urine Glucose (Negative) mg/dL Salicylates (2.8-20.0) mg/dL Urine Opiates Screen (Negative) Urine Methadone Screen (Negative) Acetaminophen (10-30) ug/mL Ur Barbiturates Screen (Negative) Carbamazepine (4.0-12.0) ug/mL 23.8 H* 9.5 Ur Tricyclics Screen (Negative) Ur Amphetamines Screen (Negative) U Benzodiazepines Scrn (Negative) Urine Cocaine Screen (Negative) Ur THC Screen (Negative) Below labs populated into chart after pt admitted and not interpreted or followed by me (Dr. Banuelos) after admission. Range/Units 03/07/18 03/07/18 11:15 11:15 WBC (4.4-10.8) k/cumm 9.93 RBC (4.50-6.00) m/cumm 4.14 L Hgb (13.5-17.5) g/dL 7.7 L Hct (40.0-50.0) % 28.3 L MCV (80-95) fL 68.4 L MCH (27.0-33.0) pg 18.6 L MCHC (32.0-36.0) g/dL 27.2 L RDW (11.8-14.1) % 20.6 H Plt Count (130-400) x1000/uL 531 H MPV (8.0-11.0) fL 9.9 Immature Gran % 0.2 Neutrophils % 73.2 Lymphocytes % 16.4 Monocytes % 8.3 Eosinophils % 1.6 Basophils % 0.3 Absolute Neutrophils (1.2-6.7) k/cumm 7.27 H Band Neutrophils % Absolute Lymphocytes (1.2-3.4) k/cumm 1.63 Absolute Monocytes (0.11-0.7) k/cumm 0.82 H Absolute Eosinophils (0.0-0.7) k/cumm 0.16 Absolute Basophils (0.0-0.2) k/cumm 0.03 Metamyelocytes % Myelocytes % Promyelocytes % Differential Comment Rbc morph reviewed Atypical Lymphocytes Other Cell Type RBC Morphology See below Polychromasia Hypochromasia 3+ Anisocytosis Microcytosis 2+ Ovalocytes 2+ Sodium (136-145) mmol/L Potassium (3.5-5.1) mmol/L Chloride (98-107) mmol/L Carbon Dioxide (21.0-32.0) mmol/L Anion Gap (3-11) mmol/L BUN (7-18) mg/dL Creatinine (0.70-1.30) mg/dL Estimated GFR/1.73 m2 (mL/min/1.73m2) Glucose (70-100) mg/dL Lactate (0.6-1.4) mmol/L 1.2 Calcium (8.5-10.1) mg/dL Magnesium (1.8-2.4) mg/dL Total Bilirubin (0.2-1.0) mg/dL AST (15-37) U/L ALT (12-78) U/L Alkaline Phosphatase (46-116) U/L Total Protein (6.4-8.2) g/dL Albumin (3.4-5.0) g/dL Lipase (73-393) U/L TSH (0.358-3.74) uIU/mL Urine Color (Yellow) Urine Clarity Urine pH (5-8) Ur Specific [place] (1.005-1.025) Urine Protein (Negative) mg/dL Urine Ketones (Negative) mg/dL Urine Blood (Negative) Urine Nitrite (Negative) Urine Bilirubin (Negative) Urine Urobilinogen (Up TO 0.2) EU/dL Ur Leukocyte Esterase (Negative) Urine RBC (0-2) Urine WBC (0-5) HPF Ur Epithelial Cells (Negative) HPF Urine Crystals (Negative) HPF Urine Bacteria (Negative) HPF Urine Casts (Negative) LPF Urine Mucus (Negative) Ur Culture Indicated? Urine Glucose (Negative) mg/dL Salicylates (2.8-20.0) mg/dL Urine Opiates Screen (Negative) Urine Methadone Screen (Negative) Acetaminophen (10-30) ug/mL Ur Barbiturates Screen (Negative) Carbamazepine (4.0-12.0) ug/mL Ur Tricyclics Screen (Negative) Ur Amphetamines Screen (Negative) U Benzodiazepines Scrn (Negative) Urine Cocaine Screen (Negative) Ur THC Screen (Negative) HPI <STACI Tran - Last Filed: 03/10/18 10:50> General Mode of arrival: wheelchair . Date/Time Provider Initiated Documentation: 03/06/18 16:36 . Limitations to Documentation: altered mental status . Information obtained by: family . HPI Narrative: Patient 32-year-old male with history of GERD, epilepsy, mental retardation, scoliosis, hydrocephalus, CP, incontinence, blindness, Mckenzie's esophagus, anemia, brought in by mother today with chief complaint of unresponsiveness. She reports a prior to his nap today he was at his baseline. Patient is nonverbal at baseline. However, she reports that when he awoke from his nap he became limp and unresponsive. She reports that he is currently being treated for a urinary tract infection. Denies any recent changes medications. Denies any known trauma. Denies any fevers or chills. Denies any ingestions. Mother reports that he had typical lunch prior to nap. She does report that he is currently being treated for urinary tract infection Related Data Home Medications Medication Instructions Recorded Confirmed Perla Protect 1 gm PRN PRN 05/31/17 03/06/18 nystatin 1 gm PRN PRN 05/31/17 02/24/18 Pediatric Balanced Nutrition 1 bottle PO BID #60 bottle 07/08/17 03/06/18 acetaminophen 650 mg RC Q4H PRN #90 supp MDD 08/08/17 03/06/18 3000 mg docusate sodium 100 mg capsule 100 mg PO BID #180 cap 11/21/17 03/06/18 polyethylene glycol 3350 17 gram 17 gm PO DAILY PRN #90 each 12/26/17 02/24/18 oral powder packet Tegretol XR 400 mg tablet,extended 400 mg PO BID #200 tab-cap NS 02/24/18 03/06/18 release cholecalciferol (vitamin D3) 1,000 1,000 unit PO DAILY #100 tab-cap 02/24/18 03/06/18 unit tablet epinephrine 0.3 mg/0.3 mL 0.3 mg IM ONCE #2 pen 02/24/18 03/06/18 injection, auto-injector gabapentin 800 mg tablet 800 mg PO TID #270 tab 02/24/18 03/06/18 multivitamin tablet 1 tab PO DAILY #100 tab-cap 02/24/18 03/06/18 pantoprazole 40 mg tablet,delayed 40 mg PO BID #180 tab-cap 02/24/18 02/24/18 release pyridoxine (vitamin B6) 50 mg 50 mg PO DAILY #90 cap 02/24/18 02/24/18 capsule simethicone 80 mg chewable tablet 80 mg PO AC #100 tab.chew 02/24/18 02/24/18 clonazepam 0.5 mg PO ONCE PRN 03/06/18 03/06/18 piperacillin-tazobactam [Zosyn] 3.375 gm IV Q8H #10 each 03/07/18 Previous Rx's Medication Instructions Recorded acetaminophen 650 mg RC Q4H PRN #90 supp MDD 08/08/17 3000 mg docusate sodium 100 mg capsule 100 mg PO BID #180 cap 11/21/17 polyethylene glycol 3350 17 gram 17 gm PO DAILY PRN #90 each 12/26/17 oral powder packet Tegretol XR 400 mg tablet,extended 400 mg PO BID #200 tab-cap NS 02/24/18 release cholecalciferol (vitamin D3) 1,000 1,000 unit PO DAILY #100 tab-cap 02/24/18 unit tablet epinephrine 0.3 mg/0.3 mL 0.3 mg IM ONCE #2 pen 02/24/18 injection, auto-injector gabapentin 800 mg tablet 800 mg PO TID #270 tab 02/24/18 multivitamin tablet 1 tab PO DAILY #100 tab-cap 02/24/18 pantoprazole 40 mg tablet,delayed 40 mg PO BID #180 tab-cap 02/24/18 release pyridoxine (vitamin B6) 50 mg 50 mg PO DAILY #90 cap 02/24/18 capsule simethicone 80 mg chewable tablet 80 mg PO AC #100 tab.chew 02/24/18 piperacillin-tazobactam [Zosyn] 3.375 gm IV Q8H #10 each 03/07/18 Allergies Allergy/AdvReac Type Severity Reaction Status Date / Time latex Allergy Severe ANAPHYLAXIS Unverified 03/06/18 17:16 venom-honey bee Allergy Unknown Unverified 03/06/18 17:16 General Stated Complaint: AMS/LOC JUANJO: 1 Review of Systems <STACI Tran - Last Filed: 03/10/18 10:50> Review of Systems Unobtainable due to mental condition [facility] <STACI Tran - Last Filed: 03/10/18 10:50> Medical History GERD (gastroesophageal reflux disease) (Chronic) Vitamin D deficiency (Chronic) Focal epilepsy with impairment of consciousness, intractable (Chronic) Mental retardation (Chronic) Idiopathic scoliosis (Chronic) Hydrocephalus (Chronic 04/30/14) Cerebral palsy (Chronic) Bowel and bladder incontinence (Chronic 01/28/14) Blindness of both eyes (Chronic) 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 Sister Neoplasm Maternal Grandfather Cancer Maternal Grandmother Cancer Brother No problems noted. Social History caregiver/support person: Yes household members: caregiver housing: house lives independently: No number of children: 0 current occupational status: disabled pets and animals: No frequency: does not exercise Smoking/Tobacco Use Status: Never alcohol intake: never substance use type: does not use kathryn/mu-ism: None special kathryn needs: No seatbelt use: always Exam <STACI Tran - Last Filed: 03/10/18 10:50> Const General: frail appearing and lethargic Nutritional Appearance: cachectic and thin Orientation: obtunded Limitations: altered mental status, behavioral limitations, language barrier and physical limitations [facility] Head: normal to inspection, normocephalic and atraumatic General nose exam: external nose normal and nares normal Face and sinus: normal facial exam, sinuses nontender and face symmetric Mouth: oral mucosae normal, lip normal, tongue normal, oropharynx normal, moist mucous membranes and other (gag intact) Throat: posterior oropharynx normal, tonsils normal and uvula midline Resp Effort & Inspection: normal respiratory effort, able to speak in complete sentences and no respiratory distress Auscultation: clear to auscultation bilaterally, no rales, no rhonchi and no wheezes Cardio Rate: regular rate Rhythm: regular rhythm Heart Sounds: S1 normal and S2 normal GI Inspection: scar (has multiple surgical incisions which appear to have healed well) Palpation: soft, not firm, no guarding and not rigid Skin General skin exam: jaundice (around face) Neuro General: gait abnormal, tone abnormal and does not move all extremities Cranial Nerves: gag reflex normal Course <STACI Tran - Last Filed: 03/10/18 10:50> Vital Signs Temperature 36.4 C L 03/06/18 16:35 Pulse 82 03/06/18 16:35 Respiratory Rate 8 L 03/06/18 16:35 Blood Pressure 115/73 03/06/18 16:35 Pulse Oximetry 98 03/06/18 16:35 Temperature 36.4 C L 03/06/18 16:35 Temperature Source Temporal Artery Scan 03/06/18 16:35 Pulse 82 03/06/18 16:35 Respiratory Rate 8 L 03/06/18 16:35 Blood Pressure 115/73 03/06/18 16:35 Pulse Oximetry 98 03/06/18 16:35 Oxygen Delivery Method Room Air 03/06/18 16:35 Oxygen Flow Rate 0 03/06/18 16:35 Lab/Test Results Lab/Test Results: 03/06/18 16:42 Blood Blood Culture - Pending Sign Out <STACI Tran - Last Filed: 03/10/18 10:50> Sign Out Data: Sign Out Comment: At the end of shift, care transitioned to Dr. Banuelos with labs and imaging pending. Last updated by Massiel Granados PA at 03/06/18 17:22
--- NOTE | 2018-03-06 17:16 | NUR.NOTE ---
patient to CT then xray Nursing Note:
[2018-03-06 17:22] LABS: Bacteria Rare HPF (Negative); C & S Indicated? Yes; Casts Negative LPF (Negative); Crystals Negative HPF (Negative); Epithelial Cells Rare HPF (Negative); Mucus Trace (Negative); WBC 20-50 HPF (0-5)
[2018-03-06 17:23] LABS: ALT 34 U/L (12-78); AST 23 U/L (15-37); Albumin 3.6 g/dL (3.4-5.0); Alkaline Phosphatase 91 U/L (46-116); Anion Gap 11.3 mmol/L (3-11); BUN 15 mg/dL (7-18); Bilirubin, Total 0.2 mg/dL (0.2-1.0); CO2 26.7 mmol/L (21.0-32.0); CREATININE 0.91 mg/dL (0.70-1.30); Calcium 8.8 mg/dL (8.5-10.1); Chloride 100 mmol/L (98-107); Glucose 152 mg/dL (70-100); Lipase 132 U/L (73-393); Potassium 3.2 mmol/L (3.5-5.1); Sodium 138 mmol/L (136-145); TSH (W/Ref FT4) 1.01 uIU/mL (0.358-3.74); Total Protein 7.8 g/dL (6.4-8.2)
--- NOTE | 2018-03-06 17:35 | DI.VRAD_ITS ---
EXAM: CT Head Without Contrast EXAM DATE/TIME: 03/06/2018 5:08 PM CLINICAL HISTORY: 32 years old, male; Signs and symptoms; Other: Unreaponsive; Prior surgery; Surgery date: 6+ months TECHNIQUE: Axial computed tomography images of the head/brain without contrast. Coronal and sagittal reformatted images were created and reviewed. COMPARISON: CT HEAD WITHOUT CONTRAST 08/18/2017 12:47 PM FINDINGS: Tubes, catheters and devices: There is a stable appearance to 2 left parietal ventriculostomy catheters. 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 There is prominence of sulci greater on the left, with a smaller left cerebral hemisphere compared to the right. The cerebellum appears small as well. Ventricles: Ventricles again appear slitlike. Bones/joints: Normal. No acute fracture. Sinuses: Normal as visualized. No acute sinusitis. Mastoid air cells: Normal as visualized. No mastoid effusion. Soft tissues: Normal. IMPRESSION: 1. There is a stable appearance to 2 left parietal ventriculostomy catheters. 2. Ventricles again appear slitlike. 3. 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 There is prominence of sulci greater on the left, with a smaller left cerebral hemisphere compared to the right. The cerebellum appears small as well. No acute abnormality or significant interval change is seen. Dictated and Authenticated by: Emerson Porter MD. Ordering:KWABENA Rankin MD
--- NOTE | 2018-03-06 17:36 | DI.VRAD_ITS ---
EXAM: XR Chest, 1 View EXAM DATE/TIME: 03/06/2018 5:16 PM CLINICAL HISTORY: 32 years old, male; Signs and symptoms; Other: Unresponsive TECHNIQUE: XR of the chest, 1 view. COMPARISON: SC PORTABLE CHEST ONE VIEW 05/31/2017 9:14 PM FINDINGS: Lungs: Unremarkable. No consolidation. Pleural space: Unremarkable. No pleural effusion. No pneumothorax. Heart/Mediastinum: Unremarkable. No cardiomegaly. Bones/joints: There is marked levoscoliosis of the midlumbar spine, with rotatory scoliosis as well. This was seen previously as well. IMPRESSION: No acute abnormality is seen. Dictated and Authenticated by: Emerson Porter MD. Ordering:KWABENA Rankin MD
[2018-03-06 17:44] LABS: Absolute Lymphocyte Count 3.29 k/cumm (1.2-3.4); Absolute Monocyte Count 0.82 k/cumm (0.11-0.7); Absolute Neutrophil Count 5.75 k/cumm (1.2-6.7); Atypical Lymphocytes % 4
[2018-03-06 17:45] LABS: Absolute Eosinophil Count 0.41 k/cumm (0.0-0.7); Anisocytosis 2+; Diff Comment Manual Differential; Hypochromasia 2+; Other Cells 0; Promyelocytes % 0 %
[2018-03-06 17:46] LABS: Microcytosis 3+; Polychromasia Present
[2018-03-06 17:47] LABS: Salicylate < 2.8 mg/dL (2.8-20.0)
[2018-03-06 17:48] LABS: *AMPHETAMINES SCREEN URINE Negative (Negative); *BARBITURATES SCREEN URINE Negative (Negative); *BENZODIAZEPINES SCREEN URINE POSITIVE (Negative); Cannabinoids THC Negative (Negative); Cocaine Screen,Urine Negative (Negative); METHADONE URINE SCREEN Negative (Negative); OPIATES URINE SCREEN Negative (Negative)
[2018-03-06 17:56] LABS: Lactate 1.5 mmol/L (0.6-1.4)
[2018-03-06 17:58] LABS: Tricyclic Antidepressants Negative (Negative)
[2018-03-06 18:00] LABS: Acetaminophen < 2 ug/mL (10-30)
--- NOTE | 2018-03-06 18:10 | NUR.NOTE ---
patient denies nausea at the time, refuses pain medication , awiating diagnostics Nursing Note:
[2018-03-06 18:37] LABS: Lactate-non-spesis 1.6 mmol/L (0.6-1.4)
--- NOTE | 2018-03-06 19:04 | HPE_ITS ---
Date of service: 03/06/18 Time of Service: 19:03 Assessment and Plan (1) Change in mental status: Current visit: Yes Status: Acute Change in mental status. adobe architect reports that the patient is improving at this time though still significantly off from baseline. the sudden onset and the signs of improvement suggests perhaps a seizure. Stroke would be another possibility though certainly there is no history of cerebrovascular disease. the UTI could be responsible though the sudden onset would be atypical. Note that this would presume that the Bactrim the patient is on would not be covering any putative infection. Regardless, I think we should continue antibiotics, await urine culture, give IV fluids, replace potasssium and see what develops. I will also add on a Tegretol level. History of Present Illness Chief Complaint: Change in mental status Narrative: Patient is a 32-year-old male with history of developmental delay, hydrocephalus and cerebral palsy. There is history of seizure disorder his adobe architect reports that he was in his usual state of health today (which entails a certain degree of verbal and motor responsiveness) when he suddenly became limp. She did not note any seizure-like activity. He was brought to the emergency room where evaluation was unrevealing except for pyuria (note the patient is on Bactrim for reported UTI although I do not see any urine sample in the record for the date in question, which the adobe architect reports was 03/03). Patient was given a dose of 1 g of Rocephin and admitted for further evaluation and management Past medical history: Developmental delay, scoliosis, hydrocephalus, status post CAN LINE OPERATOR shunt, quadriplegia, blindness. Allergy to latex (anaphylaxis) and be venom. Medications Tylenol as needed vitamin D, Klonopin 0.5 as needed Colace 100 twice daily, Neurontin 800 3 times daily, Multivite, Protonix 40 twice daily, MiraLAX as needed, pyridoxine 50 mg daily, simethicone 80 mg before meals, Tegretol-XR 400 twice daily, Bactrim DS twice daily Physical exam temp 36.3 blood pressure 106/67, pulse 80, respirations 14, O2 sat 100% on room air. HEENT shows no signs of head trauma cornea opaque bilateral lungs clear, heart regular rate and rhythm, abdomen soft nontender, exam shows no scrotal redness or swelling, rectal exam is deferred neurological patient has nonspecific response to light touch, no verbal output Laboratory: White count is 10.2, hematocrit 31 platelet 532 sodium 138 potassium 3.2 chloride 100 bicarb 26 BUN 15 creatinine 0.9 glucose 152 total bili 0.2 AST 23 ALT 34 TSH 1.0 urinalysis shows 10-20 red cells 20-50 white cells urine tox screen positive benzodiazepines chest x-ray shows no acute disease head CT shows no change from baseline, ventriculostomy tubes in place with slit ventricles, all baseline Review of Systems Review of Systems Unobtainable due to mental condition [facility] Medical History GERD (gastroesophageal reflux disease) (Chronic) Vitamin D deficiency (Chronic) Focal epilepsy with impairment of consciousness, intractable (Chronic) Mental retardation (Chronic) Idiopathic scoliosis (Chronic) Hydrocephalus (Chronic 04/30/14) Cerebral palsy (Chronic) Bowel and bladder incontinence (Chronic 01/28/14) 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 Sister Neoplasm Maternal Grandfather Cancer Maternal Grandmother Cancer Brother No problems noted. Social History caregiver/support person: Yes household members: caregiver housing: house lives independently: No number of children: 0 current occupational status: disabled pets and animals: No frequency: does not exercise Smoking/Tobacco Use Status: Never alcohol intake: never substance use type: does not use kathryn/latter-day: None special kathryn needs: No seatbelt use: always Meds Home Medications Medication Instructions Recorded Confirmed Type Perla Protect 1 gm PRN PRN 05/31/17 03/06/18 History nystatin 1 gm PRN PRN 05/31/17 02/24/18 History Pediatric Balanced Nutrition 1 bottle PO BID #60 bottle 07/08/17 03/06/18 History acetaminophen 650 mg RC Q4H PRN #90 supp MDD 08/08/17 03/06/18 Rx 3000 mg docusate sodium 100 mg capsule 100 mg PO BID #180 cap 11/21/17 03/06/18 Rx polyethylene glycol 3350 17 gram 17 gm PO DAILY PRN #90 each 12/26/17 02/24/18 Rx oral powder packet Tegretol XR 400 mg tablet,extended 400 mg PO BID #200 tab-cap NS 02/24/18 03/06/18 Rx release cholecalciferol (vitamin D3) 1,000 1,000 unit PO DAILY #100 tab-cap 02/24/18 03/06/18 Rx unit tablet epinephrine 0.3 mg/0.3 mL 0.3 mg IM ONCE #2 pen 02/24/18 03/06/18 Rx injection, auto-injector gabapentin 800 mg tablet 800 mg PO TID #270 tab 02/24/18 03/06/18 Rx multivitamin tablet 1 tab PO DAILY #100 tab-cap 02/24/18 03/06/18 Rx pantoprazole 40 mg tablet,delayed 40 mg PO BID #180 tab-cap 02/24/18 02/24/18 Rx release pyridoxine (vitamin B6) 50 mg 50 mg PO DAILY #90 cap 02/24/18 02/24/18 Rx capsule simethicone 80 mg chewable tablet 80 mg PO AC #100 tab.chew 02/24/18 02/24/18 Rx sulfamethoxazole 800 1 tab PO BID #14 tab 03/02/18 03/06/18 Rx mg-trimethoprim 160 mg tablet clonazepam 0.5 mg PO ONCE PRN 03/06/18 03/06/18 History Allergies Allergy/AdvReac Type Severity Reaction Status Date / Time latex Allergy Severe ANAPHYLAXIS Unverified 03/06/18 17:16 venom-honey bee Allergy Unknown Unverified 03/06/18 17:16 Exam Narrative Exam Narrative: per HPI Results Labs : 03/06/18 16:48 03/06/18 16:48 Laboratory Results - last 24 hr 03/06/18 03/06/18 03/06/18 16:48 16:48 16:48 WBC 10.27 RBC 4.75 Hgb 9.0 L Hct 31.8 L MCV 66.9 L MCH 18.9 L MCHC 28.3 L RDW 20.4 H Plt Count 532 H MPV 9.6 Immature Gran % See Differential Neutrophils % 54.0 Lymphocytes % 28.0 Monocytes % 8.0 Eosinophils % 4.0 Basophils % 0.0 Absolute Neutrophils 5.75 Band Neutrophils 2.0 Absolute Lymphocytes 3.29 Absolute Monocytes 0.82 H Absolute Eosinophils 0.41 Absolute Basophils 0.00 Metamyelocytes 0.0 Myelocytes 0.0 Promyelocytes 0 Differential Comment Manual differential Atypical Lymphocytes 4 Other Cell Type 0 RBC Morphology See below Polychromasia Present Hypochromasia 2+ Anisocytosis 2+ Microcytosis 3+ Sodium 138 Potassium 3.2 L Chloride 100 Carbon Dioxide 26.7 Anion Gap 11.3 H BUN 15 Creatinine 0.91 Estimated GFR/1.73 m2 >= 60.00 Glucose 152 H Lactate 1.5 H Calcium 8.8 Total Bilirubin 0.2 AST 23 ALT 34 Alkaline Phosphatase 91 Total Protein 7.8 Albumin 3.6 Lipase 132 TSH 1.01 Urine Color Urine Clarity Urine pH Ur Specific [place] Urine Protein Urine Ketones Urine Blood Urine Nitrite Urine Bilirubin Urine Urobilinogen Ur Leukocyte Esterase Urine RBC Urine WBC Ur Epithelial Cells Urine Crystals Urine Bacteria Urine Casts Urine Mucus Ur Culture Indicated? Urine Glucose Salicylates < 2.8 L Urine Opiates Screen Urine Methadone Screen Acetaminophen < 2 L Ur Barbiturates Screen Ur Tricyclics Screen Ur Amphetamines Screen U Benzodiazepines Scrn Urine Cocaine Screen Ur THC Screen 03/06/18 03/06/18 03/06/18 17:00 17:00 18:30 WBC RBC Hgb Hct MCV MCH MCHC RDW Plt Count MPV Immature Gran % Neutrophils % Lymphocytes % Monocytes % Eosinophils % Basophils % Absolute Neutrophils Band Neutrophils Absolute Lymphocytes Absolute Monocytes Absolute Eosinophils Absolute Basophils Metamyelocytes Myelocytes Promyelocytes Differential Comment Atypical Lymphocytes Other Cell Type RBC Morphology Polychromasia Hypochromasia Anisocytosis Microcytosis Sodium Potassium Chloride Carbon Dioxide Anion Gap BUN Creatinine Estimated GFR/1.73 m2 Glucose Lactate 1.6 H Calcium Total Bilirubin AST ALT Alkaline Phosphatase Total Protein Albumin Lipase TSH Urine Color Yellow Urine Clarity Clear Urine pH 5.5 Ur Specific [place] 1.020 Urine Protein Negative Urine Ketones Negative Urine Blood Moderate H Urine Nitrite Negative Urine Bilirubin Negative Urine Urobilinogen 0.2 Ur Leukocyte Esterase Trace H Urine RBC 10-20 H Urine WBC 20-50 Ur Epithelial Cells Rare Urine Crystals Negative Urine Bacteria Rare Urine Casts Negative Urine Mucus Trace Ur Culture Indicated? Yes Urine Glucose Negative Salicylates Urine Opiates Screen Negative Urine Methadone Screen Negative Acetaminophen Ur Barbiturates Screen Negative Ur Tricyclics Screen Negative Ur Amphetamines Screen Negative U Benzodiazepines Scrn Positive Urine Cocaine Screen Negative Ur THC Screen Negative Last Vital Signs Temp 36.3 C L 03/06/18 17:15 Pulse 86 03/06/18 18:51 Resp 14 03/06/18 18:51 BP 106/67 03/06/18 18:51 Pulse Ox 100 03/06/18 18:51
--- NOTE | 2018-03-06 19:43 | NUR.NOTE ---
patient to be admitted, will continue to monitor Nursing Note:
[2018-03-06 20:08] LABS: TROPONIN-I 23.8 ug/mL (4.0-12.0)
--- NOTE | 2018-03-06 21:16 | NUR.NOTE ---
Nursing Note: patient brought up from ER per stretcher accompanied by caregiver. Brought to room 228. Admission assessment done. Questions answered by caregiver. Patient is unable to communicate on his own.
--- NOTE | 2018-03-06 21:19 | NUR.NOTE ---
Nursing Note: 2030H patient vomited dark brown to red gastric contents approximately 150ml. Heme positive. Episode reported to charge nurse. RN will continue to monitor.
[2018-03-06] MEDS: Normal Saline Flush 10 ML SYR IVP ×2 (21:47→22:06)
[2018-03-06] MEDS: Pantoprazole 40 MG VIAL IVP (22:05)
[2018-03-06] MEDS: Gabapentin 800 MG TAB PO (22:14)
[2018-03-06] MEDS: Docusate Sodium 100 MG CAP PO (22:14)
[2018-03-06] MEDS: POTASSIUM CHLORIDE 10 MEQ/100 ML BAG 100 MEQ IVPB (22:59)
[2018-03-07 07:35] VITALS: BP 82/50; PULSE 67; RESP 16; TEMP 36.4; O2SAT 98
[2018-03-07 07:39] LABS: TROPONIN-I 9.5 ug/mL (4.0-12.0)
[2018-03-07] MEDS: Lactated Ringers 1,000 ML 75 ML IV (07:51)
[2018-03-07] MEDS: Docusate Sodium 100 MG CAP PO ×2 (07:51→18:37)
[2018-03-07] MEDS: Gabapentin 800 MG TAB PO ×3 (07:51→18:37)
[2018-03-07] MEDS: Normal Saline Flush 10 ML SYR IVP (07:52)
--- NOTE | 2018-03-07 09:40 | PDOC.CMIN ---
- If Service Date Differs Date of service: 03/07/18 Time of Service: 09:40 Care Management Initial Assess REASON FOR HOSPITALIZATION:: Mental status change PAST MEDICAL HISTORY/PAST SURGICAL HISTORY:: Gio is non-verbal. 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 His diagnosises include Cerebral Palsy, blindness, premature with grade 4 intracranial hemorrhages, spastic quadriplegia, scoliosis, hydrocephaly with MARKETING STRATEGY MANAGER shunt replaced April 2014, mecrocephaly, ostopenia; bone fragility, seizure disorder, Mckenzie's Esophagus, GERD, pureed diet fed by caregiver until a few monthes ago when PCP (Pascual Johnson MD) switched to Ensure 3-4 x's daily, prior oxygen tent. ( DC'd tent 06/30 per Caregiver reports). Bilateral vitrectomy at , SP FX RT Femur 2000, hip dislocation S/P surgery 2001, (PDA closed). Hospitalizations in 2004 and 2005 for Pneumonia, seizures/dehydrations, GERD, nutritional risk and feeding problems. 03/19/06 PEG replaced with Johny feeding tube for fluids when sick. 05/07/17 had Jordin-Oreilly feeding tube removed due to ability to resume eating and drinking. Garland Royal is his state appointed guardian. PREVIOUS FUNCTIONAL STATUS/SOCIAL/FAMILY SUPPORTS:: Gio lives with a home provider Arabella and he has a court appointment guardian Garland Gaffney, contact number is [phone]. Chilo is dependent for all ADL's including feeding. He is cared for by Arabella and also her grandson Taurus. He is wheelchair dependent. CURRENT FUNCTIONAL STATUS:: Chilo is awake during CM assessment, his caregiver is present and has been since admission. Caregiver describes events leading to admission. She states Pt was being treated for what she called a mild UTI. She reports that Chilo is incontinant and often of stool she is concerned that this may have increased his chance of UTI. She states when hydrated he urinates large amounts. She feels today he has returned to his base line. ADVANCE DIRECTIVES:: [facility] on file Has patient been provided with information about the portal?: Yes Did the patient sign up for the portal?: No (already enrolled) CODE STATUS:: DNR/DNI INSURANCE COVERAGE / FINANCIAL ISSUES:: medicaid CURRENT HOME/COMMUNITY SERVICES/EQUIPMENT:: Lives with paid Caregivers 24 hours a day. He has a public guardian Garland Gaffney. He has wheelchair which is present. Support services through Palliative care, . POTENTIAL DISCHARGE NEEDS:: Follow up with primary care provider post hospital discharge. PATIENT/FAMILY EDUCATION NEEDS:: Discharge plan, limitations and follow up plan of care including ask me three education. ANTICIPATED BARRIERS TO DISCHARGE:: None identified. TRANSPORTATION:: Via caregiver at time of discharge. PLAN:: Chilo remains in observation, he continues to receive treatment for UTI and IV fluids. Caregiver would like to take him home today however provider anticipates Friday discharge at the earliest. CM contact guardian Garland Gaffney and provided update he agrees with the plan. He would like notification when Chilo is discharged which CM will provide. Anticipate no addtional services at time of discharge. Caregivers to transport at time of discharge with private transportation.
[2018-03-07 11:27] LABS: Lactate-non-spesis 1.2 mmol/L (0.6-1.4)
--- NOTE | 2018-03-07 11:31 | DI.CT_ITS ---
SYMPTOM/DIAGNOSIS: UTI IN MALE. NAUSEA, VOMITING ABDOMINAL AND PELVIC CT: 03/07 CT examination of the abdomen and pelvis was performed without contrast administration. Images obtained through the lung bases show small areas of focal atelectasis, scarring and/or consolidation. Note is again made of previously described chronic skeletal deformities including a pronounced left convex lumbar scoliosis. There is a ventricular peritoneal shunt in position. The visualized liver and spleen appear intact by noncontrast criteria. The pancreas is poorly visualized. Significant motion artifact obscures detail on abdominal slices. Large quantity of fecal material throughout the colon noted. No gross free intraperitoneal air or free intraperitoneal fluid. There is hydronephrosis on the right associated with an obstructing proximal right ureteral stone. Probable medullary nephrocalcinosis also noted on the right. Left kidney poorly visualized but may be hydronephrotic as well, proximal left ureter probably dilated. Course of the left ureter is difficult to follow due to motion and anatomic deformity. No definite ureteral calculus identified on the left. CONCLUSION: 1. 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 Right hydronephrosis and hydroureter to the level of the proximal ureter where there is an obstructing 1 to 1.5 cm in diameter stone. 3. Possible left hydronephrosis. No definite obstructing stone identified. Correlation with cystoscopy and retrograde ureterography may be considered for further evaluation.
[2018-03-07 11:34] LABS: BUN 10 mg/dL (7-18); CREATININE 0.69 mg/dL (0.70-1.30); Chloride 107 mmol/L (98-107); Glucose 98 mg/dL (70-100); Sodium 141 mmol/L (136-145)
[2018-03-07 11:35] LABS: Abs Immature Grans 0.02 k/cumm (0.0-0.09); Absolute Basophil Count 0.03 k/cumm (0.0-0.2); Absolute Eosinophil Count 0.16 k/cumm (0.0-0.7); Absolute Lymphocyte Count 1.63 k/cumm (1.2-3.4); Absolute Monocyte Count 0.82 k/cumm (0.11-0.7); Absolute Neutrophil Count 7.27 k/cumm (1.2-6.7); Basophils % 0.3; Eosinophils % 1.6; HCT 28.3 % (40.0-50.0); HGB 7.7 g/dL (13.5-17.5); Immature Grans % 0.2; Lymphocytes % 16.4; Mean Corp. HGB Concentration 27.2 g/dL (32.0-36.0); Mean Corpuscular Hemoglobin 18.6 pg (27.0-33.0); Mean Corpuscular Volume 68.4 fL (80-95); Mean Platelet Volume 9.9 fL (8.0-11.0); Monocytes % 8.3; Neutrophils % 73.2; Platelet Count 531 x1000/uL (130-400); RBC 4.14 m/cumm (4.50-6.00); RBC Distribution Width 20.6 % (11.8-14.1); White Blood Cell Count 9.93 k/cumm (4.4-10.8)
[2018-03-07] MEDS: Normal Saline 1,000 ML 75 ML IV ×2 (11:36→16:54)
[2018-03-07] MEDS: Normal Saline 500 ML IV (11:39)
[2018-03-07 11:53] LABS: Hypochromasia 3+; Microcytosis 2+; Ovalocytes 2+
[2018-03-07 11:54] LABS: Diff Comment RBC Morph Reviewed
--- NOTE | 2018-03-07 11:54 | DI.VRAD_ITS ---
EXAM: CT Abdomen and Pelvis Without Contrast EXAM DATE/TIME: 03/07/2018 10:59 AM CLINICAL HISTORY: 32 years old, male; Pain; Abdominal pain; Other: PT unable to give HX; Patient HX: Patient unable to give clinical HX due to patient condition. Best images obtained. Patient unable to follow breathing instructions. ; Additional info: Uti TECHNIQUE: Axial computed tomography images of the abdomen and pelvis without contrast. All CT scans at this facility use at least one of these dose optimization techniques: automated exposure control; mA and/or kV adjustment per patient size (includes targeted exams where dose is matched to clinical indication); or iterative reconstruction. Coronal and sagittal reformatted images were created and reviewed. COMPARISON: No relevant prior studies available. FINDINGS: Tubes, catheters and devices: Shunt tubing terminates in the pelvis. Lower thorax: [place] in the lingula and right lower lobe. Opacities in both lower lobes may represent atelectasis or pneumonia. ABDOMEN: Liver: Normal. No mass. Gallbladder and bile ducts: Normal. No calcified stones. No ductal dilation. Pancreas: Normal. No ductal dilation. Spleen: Normal. No splenomegaly. Adrenals: Normal. No mass. Kidneys and ureters: Calcifications in the medullary portions of both kidneys may represent medullary nephrocalcinosis. The right collecting system is dilated 2 cm in width. It contains a 9 x 6 mm calculus. More distally the proximal right ureter is obstructed by a 10 mm calculus. The proximal right ureter is dilated. There is dilatation of the left collecting system and proximal left ureter. The left ureter is difficult to follow due to to distortion of the anatomy. No definite ureteral calculus. Stomach and bowel: Findings consistent with constipation. No obstruction Appendix: No evidence of appendicitis. PELVIS: Bladder: Unremarkable as visualized. Reproductive: Unremarkable as visualized. ABDOMEN and PELVIS: Intraperitoneal space: Normal. No free air. No significant fluid collection. Bones/joints: No acute fracture. No dislocation. Severe levoscoliosis Soft tissues: Unremarkable. Vasculature: Normal. No abdominal aortic aneurysm. Lymph nodes: Normal. No enlarged lymph nodes. IMPRESSION: 1. The right collecting system is dilated 2 cm in width. It contains a 9 x 6 mm calculus. There is dilated right ureter More distally the proximal right ureter is obstructed by a 10 mm calculus. 2. There is dilatation of the left collecting system and proximal left ureter. The left ureter is difficult to follow due to to distortion of the anatomy. No definite ureteral calculus. 3. Opacities in both lower lobes may represent atelectasis or pneumonia. 4. Calcifications in the medullary portions of both kidneys may represent medullary nephrocalcinosis. Dictated and Authenticated by: Cheri Montoya MD. Ordering:ADÁN Ryan MD
[2018-03-07] MEDS: PIPERACILLIN/TAZO 3.375 GM in Normal Saline 50 ML IVPB (13:55)
[2018-03-07 15:17] VITALS: BP 74/44; PULSE 81; RESP 17; TEMP 37.1; O2SAT 95
[2018-03-07 15:40] VITALS: BP 90/55
[2018-03-07] MEDS: Normal Saline 1,000 ML 1000 ML IV (15:40)
--- NOTE | 2018-03-07 17:31 | W.PM.DS.N ---
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 LAUNDRY AIDE shunt (7) Cerebral palsy: Status: Chronic (8) Blindness of both eyes: Status: Chronic (9) Mckenzie's esophagus: Status: Chronic (10) Anemia, chronic disease: Status: Chronic Asessment and Plan: with mild acute dilutional component (11) Swallowing impaired: Status: Chronic (12) Aspiration pneumonia: Status: Acute Discharge Plan Disposition Patient Disposition: [facility] Condition: Serious Discharge Details Reason For Visit: CHANGE MENTAL STATUS Admit Date/Time: 03/06/18 19:20 Admit Provider: Eran Hawk Attending Provider: Eran Hawk Primary Care Provider: Pascual Johnson Hospital Course Hospital Course: Mr Holloway is a 32 year old male with PMHx of cerebral palsy, developmental delay, seizure disorder, hydrocephalus s/p PERSONAL [employer]ING LAUNDRY AIDE shunt, who was admitted to [facility] on 03/06/18 after a witnessed episode of unresponsiveness without any tonic clonic activity. The patient was already being treated as an outpatient for a UTI with bactrim. His UA still showed pyuria on admission. He was initiated on rocephin. CT of his abdomen/pelvis done without contrast today reveals 2 large kidney stones (9 x 6 mm stone, 10 mm stone, both on the Right, causing obstruction/hydroureter). There is also a question of aspiration pneumonia vs atelectasis seen on CT (the patient did have vomiting overnight). The patient came in with elevated carbamazepine level, but it has since normalized. The patient had been hypotensive all day today, but is fluid responsive. His antibiotics were changed to zosyn with the findings of possible aspiration pneumonia on CT. He is hemodynamically stable for transfer to [facility] where he can have urology evaluation/surgical intervention, which we are unable to provide here at [facility] today. He was accepted by Dr Scott of medicine with Dr Cardenas of urology agreeing to consult/perform procedure on patient tomorrow. The patient is not able to consent to procedures. His guardian is George Gaffney, whose paperwork is being forwarded with the patient. Woody Thornton is the on-call public guardian for the [facility] who consented to transfer the patient to [facility]. We appreciate the help of our [facility] colleagues and wish the patient well. Home Meds and New Rx's Prescriptions: New piperacillin-tazobactam [Zosyn] 3.375 gram recon soln 3.375 gm IV Q8H Qty: 10 RF: 0 Continued cholecalciferol (vitamin D3) 1,000 unit tablet 1,000 unit PO DAILY Qty: 100 RF: 4 epinephrine 0.3 mg/0.3 mL auto-injector 0.3 mg IM ONCE Qty: 2 RF: 1 multivitamin [Daily Multi-Vitamin] tablet 1 tab PO DAILY Qty: 100 RF: 4 gabapentin 800 mg tablet 800 mg PO TID Qty: 270 RF: 3 pantoprazole 40 mg tablet,delayed release (DR/EC) 40 mg PO BID Qty: 180 RF: 0 Vitamin B-6 50 mg capsule 50 mg PO DAILY Qty: 90 RF: 3 simethicone 80 mg tablet,chewable 80 mg PO AC Qty: 100 RF: 11 carbamazepine [Tegretol XR] 400 mg tablet extended release 12 hr 400 mg PO BID Qty: 200 RF: 4 Pediatric Balanced Nutrition 237 ML liquid 1 bottle PO BID Qty: 60 RF: 11 acetaminophen 650 MG suppository 650 mg RC Q4H PRN MDD 3000 mg Qty: 90 RF: 2 docusate sodium 100 mg capsule 100 mg PO BID Qty: 180 RF: 3 polyethylene glycol 3350 17 gram powder in packet 17 gm PO DAILY PRN (Reason: constipation) Qty: 90 RF: 3 nystatin 15 GM powder 1 gm PRN PRNRF: 0 Perla Protect 142 GM cream 1 gm PRN PRNRF: 0 clonazepam 0.5 MG tablet,disintegrating 0.5 mg PO ONCE PRNRF: 0 Discontinued sulfamethoxazole-trimethoprim [Bactrim DS] 800-160 mg tablet 1 tab PO BID Qty: 14 RF: 0 Discharge Instructions Activity:: bedrest Equipment/Supplies:: No Equipment Needed Diet:: NPO Discharge Orders Discharge Orders: Discharge Order (Routine); Ordered 03/07/18 Ordered By: Shelby Malik Exam Narrative Exam Narrative: General: contracted male, drinking out of a bottle, nonverbal HEENT: not making eye contact with me, dry MM Heart: RRR, no m/r/g, loud precordial sounds Lungs: CTAB GI: abdomen soft, nontender Extremities: contracted. No edema, clubbing, or cyanosis of BLE's DS: Data Vitals/I&O Vitals and I&O: Vital Signs Temperature 37.1 C 03/07/18 15:17 Temperature Source Tympanic 03/07/18 15:17 Pulse 81 03/07/18 15:17 Pulse Rhythm Regular 03/07/18 08:52 Respiratory Rate 17 03/07/18 15:17 Respiratory Effort Non-Labored 03/07/18 08:52 Respiratory Depth Normal 03/07/18 08:52 Respiratory Pattern Normal 03/07/18 08:52 Blood Pressure 90/55 L 03/07/18 15:40 Pulse Oximetry 95 03/07/18 15:17 Oxygen Delivery Method Room Air 03/07/18 15:17 Oxygen Flow Rate 0 03/07/18 15:17 Pain Level 1 03/06/18 18:09 Intake & Output 03/06/18 03/07/18 03/07/18 23:59 11:59 23:59 Intake Total 1050 / 1050 337 / 2892.0 2555.0 / 2892.0 Balance 1050 / 1050 337 / 2892.0 2555.0 / 2892.0 Weight 33 kg 33 kg Intake: IV 1050 / 1050 100 / 2415.0 2315.0 / 2415.0 Oral 237 / 477 240 / 477 Other: Urine Color Straw Urine Appearance Clear Clear Urine Odor Normal Comment pt was recently incontinent of urine pt incontinent of small amounts of urine. Stool Size Smear Voiding Methods Diaper Diaper Incontinent Incontinent Completed studies during hospitalization [Text1]: CT abdomen/pelvis without contrast: 1. The right collecting system is dilated 2 cm in width. It contains a 9 x 6 mm calculus. There is dilated right ureter More distally the proximal right ureter is obstructed by a 10 mm calculus. 2. There is dilatation of the left collecting system and proximal left ureter. The left ureter is difficult to follow due to to distortion of the anatomy. No definite ureteral calculus. 3. Opacities in both lower lobes may represent atelectasis or pneumonia. 4. Calcifications in the medullary portions of both kidneys may represent medullary nephrocalcinosis. CT head: 1. There is a stable appearance to 2 left parietal ventriculostomy catheters. 2. Ventricles again appear slitlike. 3. 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 There is prominence of sulci greater on the left, with a smaller left cerebral hemisphere compared to the right. The cerebellum appears small as well. No acute abnormality or significant interval change is seen. CXR: No acute abnormality is seen. Pending studies at discharge: Urine culture pending Urine C&S 02/26/18: E. Coli (pansensitive) Labs on day of discharge: Labs from last 24 hours 03/07/18 03/07/18 03/07/18 11:15 11:15 11:15 WBC 9.93 RBC 4.14 L Hgb 7.7 L Hct 28.3 L MCV 68.4 L MCH 18.6 L MCHC 27.2 L RDW 20.6 H Plt Count 531 H MPV 9.9 Immature Gran % 0.2 Neutrophils % 73.2 Lymphocytes % 16.4 Monocytes % 8.3 Eosinophils % 1.6 Basophils % 0.3 Absolute Neutrophils 7.27 H Band Neutrophils Absolute Lymphocytes 1.63 Absolute Monocytes 0.82 H Absolute Eosinophils 0.16 Absolute Basophils 0.03 Metamyelocytes Myelocytes Promyelocytes Differential Comment Rbc morph reviewed Atypical Lymphocytes Other Cell Type RBC Morphology See below Polychromasia Hypochromasia 3+ Anisocytosis Microcytosis 2+ Ovalocytes 2+ Sodium 141 Potassium 4.0 D Chloride 107 Carbon Dioxide 25.0 Anion Gap 9.0 BUN 10 Creatinine 0.69 L Estimated GFR/1.73 m2 >= 60.00 Glucose 98 D Lactate 1.2 Calcium 9.0 Magnesium 2.0 Salicylates Urine Opiates Screen Urine Methadone Screen Acetaminophen Ur Barbiturates Screen Carbamazepine Ur Tricyclics Screen Ur Amphetamines Screen U Benzodiazepines Scrn Urine Cocaine Screen Ur THC Screen 03/07/18 03/06/18 03/06/18 06:50 18:30 18:30 WBC RBC Hgb Hct MCV MCH MCHC RDW Plt Count MPV Immature Gran % Neutrophils % Lymphocytes % Monocytes % Eosinophils % Basophils % Absolute Neutrophils Band Neutrophils Absolute Lymphocytes Absolute Monocytes Absolute Eosinophils Absolute Basophils Metamyelocytes Myelocytes Promyelocytes Differential Comment Atypical Lymphocytes Other Cell Type RBC Morphology Polychromasia Hypochromasia Anisocytosis Microcytosis Ovalocytes Sodium Potassium Chloride Carbon Dioxide Anion Gap BUN Creatinine Estimated GFR/1.73 m2 Glucose Lactate 1.6 H Calcium Magnesium Salicylates Urine Opiates Screen Urine Methadone Screen Acetaminophen Ur Barbiturates Screen Carbamazepine 9.5 23.8 H* Ur Tricyclics Screen Ur Amphetamines Screen U Benzodiazepines Scrn Urine Cocaine Screen Ur THC Screen 03/06/18 03/06/18 03/06/18 17:00 16:48 16:48 WBC 10.27 RBC 4.75 Hgb 9.0 L Hct 31.8 L MCV 66.9 L MCH 18.9 L MCHC 28.3 L RDW 20.4 H Plt Count 532 H MPV 9.6 Immature Gran % See Differential Neutrophils % 54.0 Lymphocytes % 28.0 Monocytes % 8.0 Eosinophils % 4.0 Basophils % 0.0 Absolute Neutrophils 5.75 Band Neutrophils 2.0 Absolute Lymphocytes 3.29 Absolute Monocytes 0.82 H Absolute Eosinophils 0.41 Absolute Basophils 0.00 Metamyelocytes 0.0 Myelocytes 0.0 Promyelocytes 0 Differential Comment Manual differential Atypical Lymphocytes 4 Other Cell Type 0 RBC Morphology See below Polychromasia Present Hypochromasia 2+ Anisocytosis 2+ Microcytosis 3+ Ovalocytes Sodium Potassium Chloride Carbon Dioxide Anion Gap BUN Creatinine Estimated GFR/1.73 m2 Glucose Lactate Calcium Magnesium Salicylates < 2.8 L Urine Opiates Screen Negative Urine Methadone Screen Negative Acetaminophen < 2 L Ur Barbiturates Screen Negative Carbamazepine Ur Tricyclics Screen Negative Ur Amphetamines Screen Negative U Benzodiazepines Scrn Positive Urine Cocaine Screen Negative Ur THC Screen Negative 03/06/18 16:48 WBC RBC Hgb Hct MCV MCH MCHC RDW Plt Count MPV Immature Gran % Neutrophils % Lymphocytes % Monocytes % Eosinophils % Basophils % Absolute Neutrophils Band Neutrophils Absolute Lymphocytes Absolute Monocytes Absolute Eosinophils Absolute Basophils Metamyelocytes Myelocytes Promyelocytes Differential Comment Atypical Lymphocytes Other Cell Type RBC Morphology Polychromasia Hypochromasia Anisocytosis Microcytosis Ovalocytes Sodium Potassium Chloride Carbon Dioxide Anion Gap BUN Creatinine Estimated GFR/1.73 m2 Glucose Lactate 1.5 H Calcium Magnesium Salicylates Urine Opiates Screen Urine Methadone Screen Acetaminophen Ur Barbiturates Screen Carbamazepine Ur Tricyclics Screen Ur Amphetamines Screen U Benzodiazepines Scrn Urine Cocaine Screen Ur THC Screen 03/06/18 16:38 Blood Blood Culture - Pending Preliminary micro results at discharge 03/06/18 17:00 Urine Culture - Preliminary Urine - Reflex from Ua 03/06/18 16:38 Blood Culture - Pending Blood [facility] Medical History GERD (gastroesophageal reflux disease) (Chronic) Vitamin D deficiency (Chronic) Focal epilepsy with impairment of consciousness, intractable (Chronic) Mental retardation (Chronic) Idiopathic scoliosis (Chronic) Hydrocephalus (Chronic 04/30/14) Cerebral palsy (Chronic) Bowel and bladder incontinence (Chronic 01/28/14) Blindness of both eyes (Chronic) 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 Sister Neoplasm Maternal Grandfather Cancer Maternal Grandmother Cancer Brother No problems noted. Social History caregiver/support person: Yes household members: caregiver housing: house lives independently: No number of children: 0 current occupational status: disabled pets and animals: No frequency: does not exercise Smoking/Tobacco Use Status: Never alcohol intake: never substance use type: does not use kathryn/moravian: None special kathryn needs: No seatbelt use: always
--- NOTE | 2018-03-07 17:36 | DSE_ITS ---
Date of service: 03/07/18 Time of Service: 17:31 DS: Diagnosis Discharge Diagnosis (1) Complicated UTI (urinary tract infection): Status: Acute (2) Right nephrolithiasis: Status: Acute Asessment and Plan: obstructive (3) Toxic metabolic encephalopathy: Status: Acute Asessment and Plan: ?recurrent seizure (4) Focal epilepsy with impairment of consciousness, intractable: Status: Chronic (5) Mental retardation: Status: Chronic (6) Hydrocephalus: Status: Chronic Asessment and Plan: s/p [employer] shunt (7) Cerebral palsy: Status: Chronic (8) Blindness of both eyes: Status: Chronic (9) Mckenzie's esophagus: Status: Chronic (10) Anemia, chronic disease: Status: Chronic Asessment and Plan: with mild acute dilutional component (11) Swallowing impaired: Status: Chronic (12) Aspiration pneumonia: Status: Acute Discharge Plan Disposition Patient Disposition: [facility] Condition: Serious Discharge Details Reason For Visit: CHANGE MENTAL STATUS Admit Date/Time: 03/06/18 19:20 Admit Provider: Eran Hawk Attending Provider: Eran Hawk Primary Care Provider: Pascual Johnson Hospital Course Hospital Course: Mr Holloway is a 32 year old male with PMHx of cerebral palsy, developmental delay, seizure disorder, hydrocephalus s/p [employer] shunt, who was admitted to [facility] on 03/06/18 after a witnessed episode of unresponsiveness without any tonic clonic activity. The patient was already being treated as an outpatient for a UTI with bactrim. His UA still showed pyuria on admission. He was initiated on rocephin. CT of his abdomen/pelvis done without contrast today reveals 2 large kidney stones (9 x 6 mm stone, 10 mm stone, both on the Right, causing obstruction/hydroureter). There is also a question of aspiration pneumonia vs atelectasis seen on CT (the patient did have vomiting overnight). The patient came in with elevated carbamazepine level, but it has since normalized. The patient had been hypotensive all day today, but is fluid responsive. His antibiotics were changed to zosyn with the findings of possible aspiration pneumonia on CT. He is hemodynamically stable for transfer to [facility] where he can have urology evaluation/surgical intervention, which we are unable to provide here at [facility] today. He was accepted by Dr Scott of medicine with Dr Cardenas of urology agreeing to consult/perform procedure on patient tomorrow. The patient is not able to consent to procedures. His guardian is George Gaffney, whose paperwork is being forwarded with the patient. Woody Thornton is the on-call public guardian for the [facility] who consented to transfer the patient to [facility]. We appreciate the help of our [facility] colleagues and wish the patient well. Home Meds and New Rx's Prescriptions: New piperacillin-tazobactam [Zosyn] 3.375 gram recon soln 3.375 gm IV Q8H Qty: 10 RF: 0 Continued cholecalciferol (vitamin D3) 1,000 unit tablet 1,000 unit PO DAILY Qty: 100 RF: 4 epinephrine 0.3 mg/0.3 mL auto-injector 0.3 mg IM ONCE Qty: 2 RF: 1 multivitamin [Daily Multi-Vitamin] tablet 1 tab PO DAILY Qty: 100 RF: 4 gabapentin 800 mg tablet 800 mg PO TID Qty: 270 RF: 3 pantoprazole 40 mg tablet,delayed release (DR/EC) 40 mg PO BID Qty: 180 RF: 0 Vitamin B-6 50 mg capsule 50 mg PO DAILY Qty: 90 RF: 3 simethicone 80 mg tablet,chewable 80 mg PO AC Qty: 100 RF: 11 carbamazepine [Tegretol XR] 400 mg tablet extended release 12 hr 400 mg PO BID Qty: 200 RF: 4 Pediatric Balanced Nutrition 237 ML liquid 1 bottle PO BID Qty: 60 RF: 11 acetaminophen 650 MG suppository 650 mg RC Q4H PRN MDD 3000 mg Qty: 90 RF: 2 docusate sodium 100 mg capsule 100 mg PO BID Qty: 180 RF: 3 polyethylene glycol 3350 17 gram powder in packet 17 gm PO DAILY PRN (Reason: constipation) Qty: 90 RF: 3 nystatin 15 GM powder 1 gm PRN PRNRF: 0 Perla Protect 142 GM cream 1 gm PRN PRNRF: 0 clonazepam 0.5 MG tablet,disintegrating 0.5 mg PO ONCE PRNRF: 0 Discontinued sulfamethoxazole-trimethoprim [Bactrim DS] 800-160 mg tablet 1 tab PO BID Qty: 14 RF: 0 Discharge Instructions Activity:: bedrest Equipment/Supplies:: No Equipment Needed Diet:: NPO Discharge Orders Discharge Orders: Discharge Order (Routine); Ordered 03/07/18 Ordered By: Shelby Malik Exam Narrative Exam Narrative: General: contracted male, drinking out of a bottle, nonverbal HEENT: not making eye contact with me, dry MM Heart: RRR, no m/r/g, loud precordial sounds Lungs: CTAB GI: abdomen soft, nontender Extremities: contracted. No edema, clubbing, or cyanosis of BLE's DS: Data Vitals/I&O Vitals and I&O: Vital Signs Temperature 37.1 C 03/07/18 15:17 Temperature Source Tympanic 03/07/18 15:17 Pulse 81 03/07/18 15:17 Pulse Rhythm Regular 03/07/18 08:52 Respiratory Rate 17 03/07/18 15:17 Respiratory Effort Non-Labored 03/07/18 08:52 Respiratory Depth Normal 03/07/18 08:52 Respiratory Pattern Normal 03/07/18 08:52 Blood Pressure 90/55 L 03/07/18 15:40 Pulse Oximetry 95 03/07/18 15:17 Oxygen Delivery Method Room Air 03/07/18 15:17 Oxygen Flow Rate 0 03/07/18 15:17 Pain Level 1 03/06/18 18:09 Intake & Output 03/06/18 03/07/18 03/07/18 23:59 11:59 23:59 Intake Total 1050 / 1050 337 / 2892.0 2555.0 / 2892.0 Balance 1050 / 1050 337 / 2892.0 2555.0 / 2892.0 Weight 33 kg 33 kg Intake: IV 1050 / 1050 100 / 2415.0 2315.0 / 2415.0 Oral 237 / 477 240 / 477 Other: Urine Color Straw Urine Appearance Clear Clear Urine Odor Normal Comment pt was recently incontinent of urine pt incontinent of small amounts of urine. Stool Size Smear Voiding Methods Diaper Diaper Incontinent Incontinent Completed studies during hospitalization [Text1]: CT abdomen/pelvis without contrast: 1. The right collecting system is dilated 2 cm in width. It contains a 9 x 6 mm calculus. There is dilated right ureter More distally the proximal right ureter is obstructed by a 10 mm calculus. 2. There is dilatation of the left collecting system and proximal left ureter. The left ureter is difficult to follow due to to distortion of the anatomy. No definite ureteral calculus. 3. Opacities in both lower lobes may represent atelectasis or pneumonia. 4. Calcifications in the medullary portions of both kidneys may represent medullary nephrocalcinosis. CT head: 1. There is a stable appearance to 2 left parietal ventriculostomy catheters. 2. Ventricles again appear slitlike. 3. 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 There is prominence of sulci greater on the left, with a smaller left cerebral hemisphere compared to the right. The cerebellum appears small as well. No acute abnormality or significant interval change is seen. CXR: No acute abnormality is seen. Pending studies at discharge: Urine culture pending Urine C&S 02/26/18: E. Coli (pansensitive) Labs on day of discharge: Labs from last 24 hours 03/07/18 03/07/18 03/07/18 11:15 11:15 11:15 WBC 9.93 RBC 4.14 L Hgb 7.7 L Hct 28.3 L MCV 68.4 L MCH 18.6 L MCHC 27.2 L RDW 20.6 H Plt Count 531 H MPV 9.9 Immature Gran % 0.2 Neutrophils % 73.2 Lymphocytes % 16.4 Monocytes % 8.3 Eosinophils % 1.6 Basophils % 0.3 Absolute Neutrophils 7.27 H Band Neutrophils Absolute Lymphocytes 1.63 Absolute Monocytes 0.82 H Absolute Eosinophils 0.16 Absolute Basophils 0.03 Metamyelocytes Myelocytes Promyelocytes Differential Comment Rbc morph reviewed Atypical Lymphocytes Other Cell Type RBC Morphology See below Polychromasia Hypochromasia 3+ Anisocytosis Microcytosis 2+ Ovalocytes 2+ Sodium 141 Potassium 4.0 D Chloride 107 Carbon Dioxide 25.0 Anion Gap 9.0 BUN 10 Creatinine 0.69 L Estimated GFR/1.73 m2 >= 60.00 Glucose 98 D Lactate 1.2 Calcium 9.0 Magnesium 2.0 Salicylates Urine Opiates Screen Urine Methadone Screen Acetaminophen Ur Barbiturates Screen Carbamazepine Ur Tricyclics Screen Ur Amphetamines Screen U Benzodiazepines Scrn Urine Cocaine Screen Ur THC Screen 03/07/18 03/06/18 03/06/18 06:50 18:30 18:30 WBC RBC Hgb Hct MCV MCH MCHC RDW Plt Count MPV Immature Gran % Neutrophils % Lymphocytes % Monocytes % Eosinophils % Basophils % Absolute Neutrophils Band Neutrophils Absolute Lymphocytes Absolute Monocytes Absolute Eosinophils Absolute Basophils Metamyelocytes Myelocytes Promyelocytes Differential Comment Atypical Lymphocytes Other Cell Type RBC Morphology Polychromasia Hypochromasia Anisocytosis Microcytosis Ovalocytes Sodium Potassium Chloride Carbon Dioxide Anion Gap BUN Creatinine Estimated GFR/1.73 m2 Glucose Lactate 1.6 H Calcium Magnesium Salicylates Urine Opiates Screen Urine Methadone Screen Acetaminophen Ur Barbiturates Screen Carbamazepine 9.5 23.8 H* Ur Tricyclics Screen Ur Amphetamines Screen U Benzodiazepines Scrn Urine Cocaine Screen Ur THC Screen 03/06/18 03/06/18 03/06/18 17:00 16:48 16:48 WBC 10.27 RBC 4.75 Hgb 9.0 L Hct 31.8 L MCV 66.9 L MCH 18.9 L MCHC 28.3 L RDW 20.4 H Plt Count 532 H MPV 9.6 Immature Gran % See Differential Neutrophils % 54.0 Lymphocytes % 28.0 Monocytes % 8.0 Eosinophils % 4.0 Basophils % 0.0 Absolute Neutrophils 5.75 Band Neutrophils 2.0 Absolute Lymphocytes 3.29 Absolute Monocytes 0.82 H Absolute Eosinophils 0.41 Absolute Basophils 0.00 Metamyelocytes 0.0 Myelocytes 0.0 Promyelocytes 0 Differential Comment Manual differential Atypical Lymphocytes 4 Other Cell Type 0 RBC Morphology See below Polychromasia Present Hypochromasia 2+ Anisocytosis 2+ Microcytosis 3+ Ovalocytes Sodium Potassium Chloride Carbon Dioxide Anion Gap BUN Creatinine Estimated GFR/1.73 m2 Glucose Lactate Calcium Magnesium Salicylates < 2.8 L Urine Opiates Screen Negative Urine Methadone Screen Negative Acetaminophen < 2 L Ur Barbiturates Screen Negative Carbamazepine Ur Tricyclics Screen Negative Ur Amphetamines Screen Negative U Benzodiazepines Scrn Positive Urine Cocaine Screen Negative Ur THC Screen Negative 03/06/18 16:48 WBC RBC Hgb Hct MCV MCH MCHC RDW Plt Count MPV Immature Gran % Neutrophils % Lymphocytes % Monocytes % Eosinophils % Basophils % Absolute Neutrophils Band Neutrophils Absolute Lymphocytes Absolute Monocytes Absolute Eosinophils Absolute Basophils Metamyelocytes Myelocytes Promyelocytes Differential Comment Atypical Lymphocytes Other Cell Type RBC Morphology Polychromasia Hypochromasia Anisocytosis Microcytosis Ovalocytes Sodium Potassium Chloride Carbon Dioxide Anion Gap BUN Creatinine Estimated GFR/1.73 m2 Glucose Lactate 1.5 H Calcium Magnesium Salicylates Urine Opiates Screen Urine Methadone Screen Acetaminophen Ur Barbiturates Screen Carbamazepine Ur Tricyclics Screen Ur Amphetamines Screen U Benzodiazepines Scrn Urine Cocaine Screen Ur THC Screen 03/06/18 16:38 Blood Blood Culture - Pending Preliminary micro results at discharge 03/06/18 17:00 Urine Culture - Preliminary Urine - Reflex from Ua 03/06/18 16:38 Blood Culture - Pending Blood [facility] Medical History GERD (gastroesophageal reflux disease) (Chronic) Vitamin D deficiency (Chronic) Focal epilepsy with impairment of consciousness, intractable (Chronic) Mental retardation (Chronic) Idiopathic scoliosis (Chronic) Hydrocephalus (Chronic 04/30/14) Cerebral palsy (Chronic) Bowel and bladder incontinence (Chronic 01/28/14) Blindness of both eyes (Chronic) 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 Sister Neoplasm Maternal Grandfather Cancer Maternal Grandmother Cancer Brother No problems noted. Social History caregiver/support person: Yes household members: caregiver housing: house lives independently: No number of children: 0 current occupational status: disabled pets and animals: No frequency: does not exercise Smoking/Tobacco Use Status: Never alcohol intake: never substance use type: does not use kathryn/worship: None special kathryn needs: No seatbelt use: always
--- NOTE | 2018-03-07 18:21 | NUR.NOTE ---
called report to [facility] floor 4W room 425. Nursing Note:
[2018-03-07 18:24] VITALS: BP 90/55; PULSE 69; RESP 16; TEMP 37.5; O2SAT 96
== END 2018-03-07 19:00 | disposition short-term general hospital (02) ==
LOC: ER 19:32 → MS 20:13
PROVIDERS: Physician Assistant; Admitting Provider General Practice; Emergency Provider Physician Assistant; PCP Family Medicine; Visit Provider Internal Medicine
DX: R41.82 Altered mental status, unspecified (principal); N39.0 Urinary tract infection, site not specified; N13.6 Pyonephrosis; G92 Toxic encephalopathy; J98.11 Atelectasis; J69.0 Pneumonitis due to inhalation of food and vomit; G40.119 Localization-related (focal) (partial) symptomatic epilepsy and epileptic syndromes with simple partial seizures, intractable, without status epilepticus; F79 Unspecified intellectual disabilities; G91.9 Hydrocephalus, unspecified; G80.9 Cerebral palsy, unspecified; H54.8 Legal blindness, as defined in USA; R13.10 Dysphagia, unspecified
CPT/HCPCS: 36415; 36416; 51701; 80048; 80053; 80307; 82962; 83690; 87040; 93005; 96361; 99222; 99239; 99285; 70450; 71045; 74176; 80156; 80329; 81003; 81015; 83605; 83735; 84443; 85025; 87086; 93010; 99217; G0378; J0696; J2543; J3480

== ENCOUNTER 2018-04-20 09:34 | Outpatient (CLI) | payer MEDICAID, SELFPAY ==
[2018-04-20 12:05] LABS: Anion Gap 10.1 mmol/L (3-11); CO2 30.9 mmol/L (21.0-32.0); Chloride 100 mmol/L (98-107); Potassium 4.1 mmol/L (3.5-5.1); Sodium 141 mmol/L (136-145)
[2018-04-20 14:13] LABS: TROPONIN-I 11.4 ug/mL (4.0-12.0)
== END 2018-04-20 09:54 ==
PROVIDERS: Psychiatry & Neurology Neurology; PCP Family Medicine; Visit Provider Family Medicine
DX: G40.119 Localization-related (focal) (partial) symptomatic epilepsy and epileptic syndromes with simple partial seizures, intractable, without status epilepticus (principal); Z51.81 Encounter for therapeutic drug level monitoring; Z79.899 Other long term (current) drug therapy; E87.6 Hypokalemia
CPT/HCPCS: 36415; 80051; 80156

== ENCOUNTER 2018-06-27 11:45 | Emergency (ER) | payer MEDICAID, SELFPAY ==
[2018-06-27] VITALS (16 sets, daily range): BP systolic 71–89; BP diastolic 37–52; PULSE 81–106; RESP 18; TEMP 36.7–37.2; O2SAT 93–99
--- NOTE | 2018-06-27 12:10 | W.ED.GENAD ---
Discharge Plan Disposition Patient Disposition: [facility] Condition: Improving Discharge Details Chief Complaint: RespSymp Clinical Impression: Sepsis, Acute UTI, Pneumonia Primary Care Provider: Pascual Johnson ED Provider: Leoncio Sandoval Home Meds and New Rx's Prescriptions: No Action epinephrine 0.3 mg/0.3 mL auto-injector 0.3 mg IM ONCE Qty: 2 RF: 1 multivitamin [Daily Multi-Vitamin] tablet 1 tab PO DAILY Qty: 100 RF: 4 gabapentin 800 mg tablet 800 mg PO TID Qty: 270 RF: 3 simethicone 80 mg tablet,chewable 80 mg PO AC Qty: 100 RF: 11 carbamazepine [Tegretol XR] 400 mg tablet extended release 12 hr 400 mg PO BID Qty: 200 RF: 4 ascorbic acid (vitamin C) 1,000 mg tablet 1 gm PO DAILY RF: 0 Ferretts 325 mg (106 mg iron) tablet 325 mg PO DAILY RF: 0 clonazepam 0.5 mg tablet,disintegrating 0.5 mg PO ONCE PRN (Reason: seizures) Qty: 20 RF: 3 Pediatric Balanced Nutrition 237 ML liquid 1 bottle PO BID Qty: 60 RF: 11 docusate sodium 100 mg capsule 100 mg PO BID Qty: 180 RF: 3 polyethylene glycol 3350 17 gram powder in packet 17 gm PO DAILY PRN (Reason: constipation) Qty: 90 RF: 3 sennosides [senna] 8.6 mg tablet 8.6 mg PO DAILY PRN (Reason: constipation) Qty: 90 RF: 1 acetaminophen 650 mg suppository 650 mg OH Q4H PRN MDD 3000 mg Qty: 90 RF: 2 pantoprazole 40 mg tablet,delayed release (DR/EC) 40 mg PO BID Qty: 180 RF: 3 cholecalciferol (vitamin D3) 1,000 unit tablet 1,000 unit PO DAILY Qty: 100 RF: 4 Vitamin B-6 50 mg capsule 50 mg PO DAILY Qty: 90 RF: 3 nystatin 15 GM powder 1 gm PRN PRNRF: 0 Perla Protect 142 GM cream 1 gm PRN PRNRF: 0 Discharge Data Discharge Date/Time-TO BE ENTERED AT DEPARTURE: 06/27/18 16:35 Medical Decision Making This is a 32-year-old male with a past medical history of cerebral palsy, develop mental delay, POSTING SPECIALIST shunt, who recently had notable right-sided kidney stones requiring nephrostomy tube, procedures. He is on chronic Bactrim. Most recent procedure was 3 days ago where he was intubated for the removal of the nephrostomy tube as well as ablations of the renal stones. He has been having no evidence of hematuria or change in urinary color since then, no problems at the nephrostomy tube postop removal site. Since then though his care providers where his family notably attentive, and have noticed that he is developed a cough, crackles in the bases of his lungs, rectal temperature of 100.2, and mild tachycardia at home. He has had decreased energy, decrease in eating and appetite, is definitely been acting off per their assessment. He is still eating and drinking well but limited. He denies any vomiting or diarrhea. They contacted urology at [facility] who recommended evaluation which I concur with. Exam demonstrates crackles in the bases, and with his recent intubation I have notably concern for aspiration pneumonia. We will check his urine, chest x-ray, blood cultures, gently rehydrate, and assess for other significant abnormalities. We will confirm his temperature with a rectal temperature. 1:42 PM Laboratory workup has returned, patient has a white count of 15.9, notable left shift, no bandemia yet. Electrolytes seem to be normal. Lactate is elevated at 2.1. Bedside portable limited ultrasound demonstrates signs and symptoms concerning for mild pneumonia, he does have rhonchorous breath sounds now. Pending formal x-ray results. Out of the clinical concern and bedside ultrasound findings we will start antibiotics, including for double gram-negative coverage and MRSA coverage with his recent multiple intubations, history and concern for hospital-acquired pneumonia. We will start vancomycin, Zosyn and Levaquin. This will also cover for aspiration pneumonia. Blood pressure is in the mid to low 80s, with occasional dips to the high 70s. Family is clear that his normal blood pressure ranges 85 systolic to 100 systolic. I do not see a current clinical indication for central line or pressor support yet. He shows no signs of endorgan failure at this point and laboratory workup. 3:57 PM Urinalysis has returned, notably concerning for urinary tract infection. Chest x-ray was read by virtual radiology as no acute process however I do feel that there is evidence of pneumonia based on ultrasound findings. Continuing to hydrate, blood pressure does appear to be actively stable. Will monitor closely. I feel that the patient is suffering from combination of urinary tract infection sepsis, as well as potential hospital-acquired versus ventilator pneumonia. Pending repeat lactate at this time. I did contact Dr. Porter of the [facility] ICU, discussed the case with he and his resident, at this time they feel that transfer is appropriate. They agree with the current plan, will continue to hold off on central line and pressors as he does appear to be near his baseline and clinically he is perking up, and his heart rate has notably improved, which he feels a good reflection of our resuscitative efforts at this time. Extremities are well perfused, no pallor, no sweatiness. The patient will be transferred by [facility] to [facility]. I have extensively reviewed the treatment plan with the patient. I have addressed all patient concerns at this time. I have also discussed the plan with the admitting physician and they agree with the current assessment and plan and have agreed to assume responsibility for the patient. All parties demonstrate verbal understanding and agreement with our assessment and plan at this time. HPI General Date/Time Provider Initiated Documentation: 06/27/18 11:53. 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 3 days ago the patient had his right-sided nephrostomy tube removed, he was intubated for the procedure. Since then he has developed a cough, notable decrease in energy, decrease in appetite and mood. He is nonverbal at baseline, and has had no complaints, but family who is very attentive and medical both noticed a change in his disposition. Caregiver did note a rectal temperature of 100.2, as well as tachycardia at home, in the range of 110-120. With the patient's worsening symptoms they did contact the [facility] urologist who recommended he come in for evaluation of infection. Caregiver is very clear that the last time that he had a shunt abnormality was years ago, and his symptoms at that time were very different, and there was evidence of a tremor and worsening seizures with the shunt abnormality, and they have noticed no abnormalities in that regard here, seizures, trauma, or abrupt sudden mental status change. Additionally they deny any diarrhea, there is been no hematuria or change in urinary color or consistency. No vomiting. No other complaints. Of note the patient is currently on Bactrim chronically for infection prophylaxis. Related Data Home Medications Medication Instructions Recorded Confirmed Perla Protect 1 gm PRN PRN 05/31/17 06/27/18 nystatin 1 gm PRN PRN 05/31/17 06/27/18 Pediatric Balanced Nutrition 1 bottle PO BID #60 bottle 07/08/17 06/27/18 docusate sodium 100 mg capsule 100 mg PO BID #180 cap 11/21/17 06/27/18 polyethylene glycol 3350 17 gram 17 gm PO DAILY PRN #90 each 12/26/17 06/27/18 oral powder packet Tegretol XR 400 mg tablet,extended 400 mg PO BID #200 tab-cap NS 02/24/18 06/27/18 release epinephrine 0.3 mg/0.3 mL 0.3 mg IM ONCE #2 pen 02/24/18 06/27/18 injection, auto-injector gabapentin 800 mg tablet 800 mg PO TID #270 tab 02/24/18 06/27/18 multivitamin tablet 1 tab PO DAILY #100 tab-cap 02/24/18 06/27/18 simethicone 80 mg chewable tablet 80 mg PO AC #100 tab.chew 02/24/18 06/27/18 sennosides 8.6 mg tablet 8.6 mg PO DAILY PRN #90 tab 04/01/18 06/27/18 acetaminophen 650 mg rectal 650 mg OH Q4H PRN #90 supp MDD 04/02/18 06/27/18 suppository 3000 mg ascorbic acid (vitamin C) 1,000 mg 1 gm PO DAILY tab 04/20/18 06/27/18 tablet pantoprazole 40 mg tablet,delayed 40 mg PO BID #180 tab-cap 04/24/18 06/27/18 release clonazepam 0.5 mg disintegrating 0.5 mg PO ONCE PRN #20 tab 06/16/18 06/27/18 tablet ferrous fumarate 325 mg (106 mg 325 mg PO DAILY tab 06/16/18 06/27/18 iron) tablet cholecalciferol (vitamin D3) 1,000 1,000 unit PO DAILY #100 tab-cap 06/19/18 06/27/18 unit tablet pyridoxine (vitamin B6) 50 mg 50 mg PO DAILY #90 cap 06/19/18 06/27/18 capsule Previous Rx's Medication Instructions Recorded docusate sodium 100 mg capsule 100 mg PO BID #180 cap 11/21/17 polyethylene glycol 3350 17 gram 17 gm PO DAILY PRN #90 each 12/26/17 oral powder packet Tegretol XR 400 mg tablet,extended 400 mg PO BID #200 tab-cap NS 02/24/18 release epinephrine 0.3 mg/0.3 mL 0.3 mg IM ONCE #2 pen 02/24/18 injection, auto-injector gabapentin 800 mg tablet 800 mg PO TID #270 tab 02/24/18 multivitamin tablet 1 tab PO DAILY #100 tab-cap 02/24/18 simethicone 80 mg chewable tablet 80 mg PO AC #100 tab.chew 02/24/18 sennosides 8.6 mg tablet 8.6 mg PO DAILY PRN #90 tab 04/01/18 acetaminophen 650 mg rectal 650 mg OH Q4H PRN #90 supp MDD 04/02/18 suppository 3000 mg pantoprazole 40 mg tablet,delayed 40 mg PO BID #180 tab-cap 04/24/18 release clonazepam 0.5 mg disintegrating 0.5 mg PO ONCE PRN #20 tab 06/16/18 tablet cholecalciferol (vitamin D3) 1,000 1,000 unit PO DAILY #100 tab-cap 06/19/18 unit tablet pyridoxine (vitamin B6) 50 mg 50 mg PO DAILY #90 cap 06/19/18 capsule Allergies Allergy/AdvReac Type Severity Reaction Status Date / Time latex Allergy Severe ANAPHYLAXIS Unverified 06/27/18 11:56 venom-honey bee Allergy Unknown Unverified 06/27/18 11:56 General Stated Complaint: RespSymp JUANJO: 4 Review of Systems Review of Systems All systems reviewed & are unremarkable except as noted in HPI and below PFSH Social History Smoking/Tobacco Use Status: Never Alcohol Intake: never Drug use: Never Substance use type: does not use Caregiver/Support person: Yes Household members: caregiver Housing: house Number of Children: 0 Pets and animals: Yes Pets and animals: dog(s) Frequency: does not exercise Latonya/Muslim: None Special latonya needs: No Seatbelt use: always Exam Narrative Exam Narrative: 1.Const: Thin, but well-nourished. Curled up in the position 2.Eyes: Chronic scarring over the corneas, mild horizontal nystagmus. No vertical nystagmus 3.ENT: Atraumatic external nose and ears. Dry MM. Neck: Symmetric, trachea midline, No thyromegaly. No neck tenderness or nuchal rigidity. 4.CVS: +S1/S2, No murmurs or gallops. Peripheral pulses 2+ and equal in all extremities. Brisk capillary refill in all extremities. 5.RESP: Unlabored respiratory effort. Crackles in the bases bilaterally, no rhonchi. 6.GI: Soft, Nontender/Nondistended, No hepatosplenomegaly. No guarding or rebound. Right sided post nephrostomy tube site shows no evidence of redness, drainage, or fluctuance. Male genitalia demonstrates a circumcised penis, no penile discharge. No testicular or penile shaft tenderness. 7.MSK: Normocephalic/Atraumatic, Extremities are all pulled in and the patient is in the position. No cyanosis or clubbing, patient had normal movement baseline per family. 8.Skin: Warm, Dry. No evidence of decubitus ulcer or pressure wounds. Notably well cared for skin. 9.Neuro: Movement of all extremities, no focal neurologic deficits that I can appreciate. Family states that he is at his normal mental and neurologic baseline. Course Vital Signs Temperature 36.7 C 06/27/18 11:49 Pulse 103 H 06/27/18 11:49 Respiratory Rate 18 06/27/18 11:49 Blood Pressure 89/52 L 06/27/18 11:49 Pulse Oximetry 93 L 06/27/18 11:49 Temperature 36.7 C 06/27/18 11:49 Temperature Source Skin 06/27/18 11:49 Pulse 103 H 06/27/18 11:49 Respiratory Rate 18 06/27/18 11:49 Respiratory Effort 06/27/18 11:58 Respiratory Depth Normal 06/27/18 11:58 Blood Pressure 89/52 L 06/27/18 11:49 Blood Pressure Position Sitting 06/27/18 11:49 Pulse Oximetry 93 L 06/27/18 11:49 Oxygen Delivery Method Room Air 06/27/18 11:49 Oxygen Flow Rate 0 06/27/18 11:49 Lab/Test Results Lab/Test Results: 06/27/18 12:08 Blood Blood Culture - Pending 06/27/18 12:08 Blood Blood Culture - Pending
[2018-06-27] MEDS: Lidocaine 2% Jelly 6 ML SYR (12:15)
--- NOTE | 2018-06-27 12:15 | ED.GENADUL_ITS ---
Discharge Plan Disposition Patient Disposition: [facility] Condition: Improving Discharge Details Chief Complaint: RespSymp Clinical Impression: Sepsis, Acute UTI, Pneumonia Primary Care Provider: Pascual Johnson ED Provider: Leoncio Sandoval Home Meds and New Rx's Prescriptions: No Action epinephrine 0.3 mg/0.3 mL auto-injector 0.3 mg IM ONCE Qty: 2 RF: 1 multivitamin [Daily Multi-Vitamin] tablet 1 tab PO DAILY Qty: 100 RF: 4 gabapentin 800 mg tablet 800 mg PO TID Qty: 270 RF: 3 simethicone 80 mg tablet,chewable 80 mg PO AC Qty: 100 RF: 11 carbamazepine [Tegretol XR] 400 mg tablet extended release 12 hr 400 mg PO BID Qty: 200 RF: 4 ascorbic acid (vitamin C) 1,000 mg tablet 1 gm PO DAILY RF: 0 Ferretts 325 mg (106 mg iron) tablet 325 mg PO DAILY RF: 0 clonazepam 0.5 mg tablet,disintegrating 0.5 mg PO ONCE PRN (Reason: seizures) Qty: 20 RF: 3 Pediatric Balanced Nutrition 237 ML liquid 1 bottle PO BID Qty: 60 RF: 11 docusate sodium 100 mg capsule 100 mg PO BID Qty: 180 RF: 3 polyethylene glycol 3350 17 gram powder in packet 17 gm PO DAILY PRN (Reason: constipation) Qty: 90 RF: 3 sennosides [senna] 8.6 mg tablet 8.6 mg PO DAILY PRN (Reason: constipation) Qty: 90 RF: 1 acetaminophen 650 mg suppository 650 mg ME Q4H PRN MDD 3000 mg Qty: 90 RF: 2 pantoprazole 40 mg tablet,delayed release (DR/EC) 40 mg PO BID Qty: 180 RF: 3 cholecalciferol (vitamin D3) 1,000 unit tablet 1,000 unit PO DAILY Qty: 100 RF: 4 Vitamin B-6 50 mg capsule 50 mg PO DAILY Qty: 90 RF: 3 nystatin 15 GM powder 1 gm PRN PRNRF: 0 Perla Protect 142 GM cream 1 gm PRN PRNRF: 0 Discharge Data Discharge Date/Time-TO BE ENTERED AT DEPARTURE: 06/27/18 16:35 Medical Decision Making This is a 32-year-old male with a past medical history of cerebral palsy, develop mental delay, [employer] shunt, who recently had notable right-sided kidney stones requiring nephrostomy tube, procedures. He is on chronic Bactrim. Most recent procedure was 3 days ago where he was intubated for the removal of the nephrostomy tube as well as ablations of the renal stones. He has been having no evidence of hematuria or change in urinary color since then, no problems at the nephrostomy tube postop removal site. Since then though his care providers where his family notably attentive, and have noticed that he is developed a cough, crackles in the bases of his lungs, rectal temperature of 100.2, and mild tachycardia at home. He has had decreased energy, decrease in eating and appetite, is definitely been acting off per their assessment. He is still eating and drinking well but limited. He denies any vomiting or diarrhea. They contacted urology at [facility] who recommended evaluation which I concur with. Exam demonstrates crackles in the bases, and with his recent intubation I have notably concern for aspiration pneumonia. We will check his urine, chest x-ray, blood cultures, gently rehydrate, and assess for other significant abnormalities. We will confirm his temperature with a rectal temperature. 1:42 PM Laboratory workup has returned, patient has a white count of 15.9, notable left shift, no bandemia yet. Electrolytes seem to be normal. Lactate is elevated at 2.1. Bedside portable limited ultrasound demonstrates signs and symptoms concerning for mild pneumonia, he does have rhonchorous breath sounds now. Pending formal x-ray results. Out of the clinical concern and bedside ultrasound findings we will start antibiotics, including for double gram- negative coverage and MRSA coverage with his recent multiple intubations, history and concern for hospital-acquired pneumonia. We will start vancomycin, Zosyn and Levaquin. This will also cover for aspiration pneumonia. Blood pressure is in the mid to low 80s, with occasional dips to the high 70s. Family is clear that his normal blood pressure ranges 85 systolic to 100 systolic. I do not see a current clinical indication for central line or pressor support yet. He shows no signs of endorgan failure at this point and laboratory workup. 3:57 PM Urinalysis has returned, notably concerning for urinary tract infection. Chest x-ray was read by virtual radiology as no acute process however I do feel that there is evidence of pneumonia based on ultrasound findings. Continuing to hydrate, blood pressure does appear to be actively stable. Will monitor closely. I feel that the patient is suffering from combination of urinary tract infection sepsis, as well as potential hospital-acquired versus ventilator pneumonia. Pending repeat lactate at this time. I did contact Dr. Porter of the [facility] ICU, discussed the case with he and his resident, at this time they feel that transfer is appropriate. They agree with the current plan, will continue to hold off on central line and pressors as he does appear to be near his baseline and clinically he is perking up, and his heart rate has notably improved, which he feels a good reflection of our resuscitative efforts at this time. Extremities are well perfused, no pallor, no sweatiness. The patient will be transferred by [facility] to [facility]. I have extensively reviewed the treatment plan with the patient. I have addressed all patient concerns at this time. I have also discussed the plan with the admitting physician and they agree with the current assessment and plan and have agreed to assume responsibility for the patient. All parties demonstrate verbal understanding and agreement with our assessment and plan at this time. HPI General Date/Time Provider Initiated Documentation: 06/27/18 11:53 . 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 3 days ago the patient had his right-sided nephrostomy tube removed, he was intubated for the procedure. Since then he has developed a cough, notable decrease in energy, decrease in appetite and mood. He is nonverbal at baseline, and has had no complaints, but family who is very attentive and medical both noticed a change in his disposition. Caregiver did note a rectal temperature of 100.2, as well as tachycardia at home, in the range of 110-120. With the patient's worsening symptoms they did contact the [facility] urologist who recommended he come in for evaluation of infection. Caregiver is very clear that the last time that he had a shunt abnormality was years ago, and his symptoms at that time were very different, and there was evidence of a tremor and worsening seizures with the shunt abnormality, and they have noticed no abnormalities in that regard here, seizures, trauma, or abrupt sudden mental status change. Additionally they deny any diarrhea, there is been no hematuria or change in urinary color or consistency. No vomiting. No other complaints. Of note the patient is currently on Bactrim chronically for infection prophylaxis. Related Data Home Medications Medication Instructions Recorded Confirmed Perla Protect 1 gm PRN PRN 05/31/17 06/27/18 nystatin 1 gm PRN PRN 05/31/17 06/27/18 Pediatric Balanced Nutrition 1 bottle PO BID #60 bottle 07/08/17 06/27/18 docusate sodium 100 mg capsule 100 mg PO BID #180 cap 11/21/17 06/27/18 polyethylene glycol 3350 17 gram 17 gm PO DAILY PRN #90 each 12/26/17 06/27/18 oral powder packet Tegretol XR 400 mg tablet,extended 400 mg PO BID #200 tab-cap NS 02/24/18 06/27/18 release epinephrine 0.3 mg/0.3 mL 0.3 mg IM ONCE #2 pen 02/24/18 06/27/18 injection, auto-injector gabapentin 800 mg tablet 800 mg PO TID #270 tab 02/24/18 06/27/18 multivitamin tablet 1 tab PO DAILY #100 tab-cap 02/24/18 06/27/18 simethicone 80 mg chewable tablet 80 mg PO AC #100 tab.chew 02/24/18 06/27/18 sennosides 8.6 mg tablet 8.6 mg PO DAILY PRN #90 tab 04/01/18 06/27/18 acetaminophen 650 mg rectal 650 mg ME Q4H PRN #90 supp MDD 04/02/18 06/27/18 suppository 3000 mg ascorbic acid (vitamin C) 1,000 mg 1 gm PO DAILY tab 04/20/18 06/27/18 tablet pantoprazole 40 mg tablet,delayed 40 mg PO BID #180 tab-cap 04/24/18 06/27/18 release clonazepam 0.5 mg disintegrating 0.5 mg PO ONCE PRN #20 tab 06/16/18 06/27/18 tablet ferrous fumarate 325 mg (106 mg 325 mg PO DAILY tab 06/16/18 06/27/18 iron) tablet cholecalciferol (vitamin D3) 1,000 1,000 unit PO DAILY #100 tab-cap 06/19/18 06/27/18 unit tablet pyridoxine (vitamin B6) 50 mg 50 mg PO DAILY #90 cap 06/19/18 06/27/18 capsule Previous Rx's Medication Instructions Recorded docusate sodium 100 mg capsule 100 mg PO BID #180 cap 11/21/17 polyethylene glycol 3350 17 gram 17 gm PO DAILY PRN #90 each 12/26/17 oral powder packet Tegretol XR 400 mg tablet,extended 400 mg PO BID #200 tab-cap NS 02/24/18 release epinephrine 0.3 mg/0.3 mL 0.3 mg IM ONCE #2 pen 02/24/18 injection, auto-injector gabapentin 800 mg tablet 800 mg PO TID #270 tab 02/24/18 multivitamin tablet 1 tab PO DAILY #100 tab-cap 02/24/18 simethicone 80 mg chewable tablet 80 mg PO AC #100 tab.chew 02/24/18 sennosides 8.6 mg tablet 8.6 mg PO DAILY PRN #90 tab 04/01/18 acetaminophen 650 mg rectal 650 mg ME Q4H PRN #90 supp MDD 04/02/18 suppository 3000 mg pantoprazole 40 mg tablet,delayed 40 mg PO BID #180 tab-cap 04/24/18 release clonazepam 0.5 mg disintegrating 0.5 mg PO ONCE PRN #20 tab 06/16/18 tablet cholecalciferol (vitamin D3) 1,000 1,000 unit PO DAILY #100 tab-cap 06/19/18 unit tablet pyridoxine (vitamin B6) 50 mg 50 mg PO DAILY #90 cap 06/19/18 capsule Allergies Allergy/AdvReac Type Severity Reaction Status Date / Time latex Allergy Severe ANAPHYLAXIS Unverified 06/27/18 11:56 venom-honey bee Allergy Unknown Unverified 06/27/18 11:56 General Stated Complaint: RespSymp JUANJO: 4 Review of Systems Review of Systems All systems reviewed & are unremarkable except as noted in HPI and below PFSH Social History Smoking/Tobacco Use Status: Never Alcohol Intake: never Drug use: Never Substance use type: does not use Caregiver/Support person: Yes Household members: caregiver Housing: house Number of Children: 0 Pets and animals: Yes Pets and animals: dog(s) Frequency: does not exercise Latonya/Restorationism: None Special latonya needs: No Seatbelt use: always Exam Narrative Exam Narrative: 1.Const: Thin, but well-nourished. Curled up in the position 2.Eyes: Chronic scarring over the corneas, mild horizontal nystagmus. No vertical nystagmus 3.ENT: Atraumatic external nose and ears. Dry MM. Neck: Symmetric, trachea midline, No thyromegaly. No neck tenderness or nuchal rigidity. 4.CVS: +S1/S2, No murmurs or gallops. Peripheral pulses 2+ and equal in all extremities. Brisk capillary refill in all extremities. 5.RESP: Unlabored respiratory effort. Crackles in the bases bilaterally, no rhonchi. 6.GI: Soft, Nontender/Nondistended, No hepatosplenomegaly. No guarding or rebound. Right sided post nephrostomy tube site shows no evidence of redness, drainage, or fluctuance. Male genitalia demonstrates a circumcised penis, no penile discharge. No testicular or penile shaft tenderness. 7.MSK: Normocephalic/Atraumatic, Extremities are all pulled in and the patient is in the position. No cyanosis or clubbing, patient had normal movement baseline per family. 8.Skin: Warm, Dry. No evidence of decubitus ulcer or pressure wounds. Notably well cared for skin. 9.Neuro: Movement of all extremities, no focal neurologic deficits that I can appreciate. Family states that he is at his normal mental and neurologic baseline. Course Vital Signs Temperature 36.7 C 06/27/18 11:49 Pulse 103 H 06/27/18 11:49 Respiratory Rate 18 06/27/18 11:49 Blood Pressure 89/52 L 06/27/18 11:49 Pulse Oximetry 93 L 06/27/18 11:49 Temperature 36.7 C 06/27/18 11:49 Temperature Source Skin 06/27/18 11:49 Pulse 103 H 06/27/18 11:49 Respiratory Rate 18 06/27/18 11:49 Respiratory Effort 06/27/18 11:58 Respiratory Depth Normal 06/27/18 11:58 Blood Pressure 89/52 L 06/27/18 11:49 Blood Pressure Position Sitting 06/27/18 11:49 Pulse Oximetry 93 L 06/27/18 11:49 Oxygen Delivery Method Room Air 06/27/18 11:49 Oxygen Flow Rate 0 06/27/18 11:49 Lab/Test Results Lab/Test Results: 06/27/18 12:08 Blood Blood Culture - Pending 06/27/18 12:08 Blood Blood Culture - Pending
[2018-06-27 12:43] LABS: Lactate-non-spesis 2.1 mmol/l (0.6-1.4)
[2018-06-27 12:49] LABS: Abs Immature Grans 0.05 k/cumm (0.0-0.09); Absolute Eosinophil Count 0.51 k/cumm (0.0-0.7); Basophils % 0.3; Eosinophils % 3.2; HCT 34.7 % (40.0-50.0); HGB 11.1 g/dL (13.5-17.5); Immature Grans % 0.3; Lymphocytes % 7.7; Mean Corpuscular Hemoglobin 28.6 pg (27.0-33.0); Mean Corpuscular Volume 89.4 fL (80-95); Mean Platelet Volume 9.3 fL (8.0-11.0); Monocytes % 6.7; Neutrophils % 81.8; Platelet Count 474 x1000/uL (130-400); RBC 3.88 m/cumm (4.50-6.00); RBC Distribution Width 14.7 % (11.8-14.1); White Blood Cell Count 15.89 k/cumm (4.4-10.8)
[2018-06-27] MEDS: Normal Saline 1,000 ML 500 ML IV (12:51)
--- NOTE | 2018-06-27 13:05 | DI.RAD_ITS ---
SYMPTOM/DIAGNOSIS: CRACKLES, ? PNEUMONIA PORTABLE AP CHEST: The patient is rotated to the right. Heart is normal in size. Lungs appear clear. No pleural effusion identified on this frontal view. CONCLUSION: No evidence of acute disease. Note is made of shunt tubing overlying the patient extending from the cervical region to the abdominal region.
[2018-06-27 13:12] LABS: Absolute Basophil Count 0.05 k/cumm (0.0-0.2); Absolute Lymphocyte Count 1.22 k/cumm (1.2-3.4); Absolute Monocyte Count 1.06 k/cumm (0.11-0.7)
[2018-06-27 13:26] LABS: ALT 28 U/L (12-78); AST 22 U/L (15-37); Albumin 2.4 g/dL (3.4-5.0); Alkaline Phosphatase 109 U/L (46-116); Anion Gap 7.4 mmol/L (3-11); BUN 13 mg/dL (7-18); Bilirubin, Total 0.2 mg/dL (0.2-1.0); CO2 28.6 mmol/L (21.0-32.0); CREATININE 0.76 mg/dL (0.70-1.30); Chloride 99 mmol/L (98-107); Glucose 104 mg/dL (70-100); Potassium 4.5 mmol/L (3.5-5.1); Sodium 135 mmol/L (136-145)
--- NOTE | 2018-06-27 13:47 | DI.VRAD_ITS ---
EXAM: XR Chest, 1 View EXAM DATE/TIME: 06/27/2018 12:10 PM CLINICAL HISTORY: 32 years old, male; Signs and symptoms; Cough; Patient HX: Crackles, R/O pneumonia. ; Additional info: S/P kidney stone removal 1 week ago. Patient has scoliosis TECHNIQUE: Imaging protocol: XR of the chest, 1 view. COMPARISON: [facility] XR CHEST 1V IN DI DEPT 03/06/2018 5:18 PM FINDINGS: Tubes, catheters and devices: Shunt tubing overlies the right chest. Lungs: Unremarkable. No consolidation. Pleural space: Unremarkable. No pleural effusion. No pneumothorax. Heart/Mediastinum: Unremarkable. No cardiomegaly. Bones/joints: Unremarkable. Other findings: Patient is rotated to the right IMPRESSION: No acute process Dictated and Authenticated by: Cheri Montoya MD. Ordering:TERRIE Fang MD
[2018-06-27] MEDS: PIPERACILLIN/TAZO 4.5 GM in Normal Saline 100 ML IVPB (14:07)
[2018-06-27 14:13] LABS: Bilirubin Negative (Negative); Blood Moderate (Negative); Clarity Clear; Glucose Negative (Negative); Ketones Negative (Negative); Leukocyte Esterase Large (Negative); Nitrite Negative (Negative); Urobilinogen 0.2 EU/dL (Up TO 0.2); pH 6.5 (5-8)
[2018-06-27] MEDS: VANCOMYCIN 500 MG in Normal Saline 100 ML 100 MG IVPB (14:19)
[2018-06-27 14:23] LABS: WBC >50 HPF (0-5)
[2018-06-27 14:24] LABS: C & S Indicated? C&S Done As Ordered
[2018-06-27] MEDS: Acetaminophen 650 MG SUPP PR (14:41)
[2018-06-27] MEDS: levoFLOXacin 750 MG/150 ML BAG 100 MG IVPB (14:42)
[2018-06-27] MEDS: Normal Saline 1,000 ML 1000 ML IV (15:05)
[2018-06-27 16:06] LABS: Lactate-non-spesis 1.2 mmol/l (0.6-1.4)
== END 2018-06-27 16:35 | disposition short-term general hospital (02) ==
PROVIDERS: Emergency Provider Student in an Organized Health Care Education/Training Program; PCP Family Medicine
DX: A41.9 Sepsis, unspecified organism (principal); N39.0 Urinary tract infection, site not specified; J18.9 Pneumonia, unspecified organism
CPT/HCPCS: 36415; 51701; 80053; 87040; 87077; 96361; 96365; 96366; 96367; 99285; 71045; 81003; 81015; 83605; 85025; 87086; 87186; 99284; J1956; J2543

== ENCOUNTER 2018-10-21 11:33 | Inpatient (IN) | payer MEDICAID, SELFPAY ==
[2018-10-21] VITALS (37 sets, daily range): BP systolic 58–152; BP diastolic 39–118; PULSE 52–109; RESP 8–23; TEMP 36.3–36.7; O2SAT 98–100
--- NOTE | 2018-10-21 11:46 | ED.GENADUL_ITS ---
Discharge Plan Disposition Patient Disposition: [facility] INPATIENT Condition: Stable Discharge Details Chief Complaint: GenMedical Clinical Impression: Seizure, Acute UTI Primary Care Provider: Pascual Johnson ED Provider: Leoncio Sandoval Home Meds and New Rx's Prescriptions: No Action multivitamin [Daily Multi-Vitamin] tablet 1 tab PO DAILY Qty: 100 RF: 4 gabapentin 800 mg tablet 800 mg PO TID Qty: 270 RF: 3 simethicone 80 mg tablet,chewable 80 mg PO AC Qty: 100 RF: 11 carbamazepine [Tegretol XR] 400 mg tablet extended release 12 hr 400 mg PO BID Qty: 200 RF: 4 ascorbic acid (vitamin C) 1,000 mg tablet 1 gm PO DAILY RF: 0 Ferretts 325 mg (106 mg iron) tablet 325 mg PO DAILY RF: 0 clonazepam 0.5 mg tablet,disintegrating 0.5 mg PO ONCE PRN (Reason: seizures) Qty: 20 RF: 3 Pediatric Balanced Nutrition 237 ML liquid 1 bottle PO BID Qty: 60 RF: 11 docusate sodium 100 mg capsule 100 mg PO BID Qty: 180 RF: 3 polyethylene glycol 3350 17 gram powder in packet 17 gm PO DAILY PRN (Reason: constipation) Qty: 90 RF: 3 sennosides [senna] 8.6 mg tablet 8.6 mg PO DAILY PRN (Reason: constipation) Qty: 90 RF: 1 pantoprazole 40 mg tablet,delayed release (DR/EC) 40 mg PO BID Qty: 180 RF: 3 cholecalciferol (vitamin D3) 1,000 unit tablet 1,000 unit PO DAILY Qty: 100 RF: 4 Vitamin B-6 50 mg capsule 50 mg PO DAILY Qty: 90 RF: 3 acetaminophen 650 mg suppository 650 mg HI Q4H PRN MDD 3000 mg Qty: 90 RF: 2 epinephrine 0.3 mg/0.3 mL auto-injector 0.3 mg IM ONCE Qty: 2 RF: 1 nystatin 15 GM powder 1 gm PRN PRNRF: 0 Perla Protect 142 GM cream 1 gm PRN PRNRF: 0 Medical Decision Making This is a 33-year-old male with a past medical history of cerebral palsy, brain hemorrhage as a baby, severe developmental delay, 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 In the last 24 hours he has had 3 seizures which is slightly atypical compared to normal per family. Normally he has only one seizure per month. He does see Dr. Harris. Since his last seizure he has been drinking less, acting more sleepy, and not acting himself. Exam demonstrates and appears to be his chronic baseline in general, no acute focal component for neurologic deficit. No nuchal rigidity. He is afebrile. 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 We will perform laboratory work-up, get a CT scan of the head, as well as shunt series. We will gently rehydrate and reassess. 3:57 PM Laboratory work-up is returned, no white count, no bandemia or left shift. Electrolytes normal. Ammonia level normal. Renal function stable. Urinalysis does show moderate leuk esterase, negative nitrites, and 10-20 WBCs. While this is positive, it is notably more mild than previous episodes here. Blood pressure is in the high 80s to low 90s which is normal for the patient. CT scan of the head and shunt series is negative per Dr. Arciniega. In addition to this we did contact Dr. Harris and discussed the case with her. She personally reviewed the images. UTI may be a potential cause of the patient's symptomatology, however it is certainly not as severe as it has been in previous episodes. He is afebrile without a white count. He is not tachycardic. Carbamazepine level is low end of therapeutic. I discussed the case with Dr. Harris, and at this time she feels that the patient can be managed here. She will perform EEG tomorrow, she does recommend Keppra 1000 mg twice daily. We will start Rocephin here. I did contact the hospitalist Dr. Akers, he agrees with the assessment and plan. I have extensively reviewed the treatment plan with the patient. I have addressed all patient concerns at this time. I have also discussed the plan with the admitting physician and they agree with the current assessment and plan and have agreed to assume responsibility for the patient. All parties demonstrate verbal understanding and agreement with our assessment and plan at this time. Exam(s) a CT:CT head wo SYMPTOMS/DIAGNOSIS: CONFUSION, SHUNT EVALUATION HEAD CT: Comparison is made with head CT of [id number]. 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 There are areas of stable encephalomalacia and atrophy in the left posterior frontal and parietal regions. Chronic skull deformity is again noted. The ventricles are unchanged in size. No acute hemorrhage or infarct is seen. IMPRESSION: Stable appearance of ventricular peritoneal shunts and stable chronic areas of encephalomalacia. HPI General Date/Time Provider Initiated Documentation: 10/21/18 11:45 . 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 Patient presents today for evaluation of his chronic seizures. Family states that normally he has a seizure once per month, however he has had 3 over the last 2 days. To yesterday, after which she was acting slightly atypical with decreased drinking, increased sleeping and slight changes in his mental status. He then had a third seizure today. He did take a clonazepam yesterday after 1 of his seizures. Family is concerned that the symptoms are atypical, and are worried about his shunt. Aside for this family denies any other complaints or alterations. No other modifying factors. Related Data Home Medications Medication Instructions Recorded Confirmed Perla Protect 1 gm PRN PRN 05/31/17 10/21/18 nystatin 1 gm PRN PRN 05/31/17 10/21/18 Pediatric Balanced Nutrition 1 bottle PO BID #60 bottle 07/08/17 10/21/18 docusate sodium 100 mg capsule 100 mg PO BID #180 cap 11/21/17 10/21/18 polyethylene glycol 3350 17 gram 17 gm PO DAILY PRN #90 each 12/26/17 10/21/18 oral powder packet Tegretol XR 400 mg tablet,extended 400 mg PO BID #200 tab-cap NS 02/24/18 10/21/18 release gabapentin 800 mg tablet 800 mg PO TID #270 tab 02/24/18 10/21/18 multivitamin 1 tab PO DAILY #100 tab-cap 02/24/18 10/21/18 simethicone 80 mg chewable tablet 80 mg PO AC #100 tab.chew 02/24/18 10/21/18 sennosides 8.6 mg tablet 8.6 mg PO DAILY PRN #90 tab 04/01/18 10/21/18 ascorbic acid (vitamin C) 1,000 mg 1 gm PO DAILY tab 04/20/18 10/21/18 tablet pantoprazole 40 mg tablet,delayed 40 mg PO BID #180 tab-cap 04/24/18 10/21/18 release clonazepam 0.5 mg disintegrating 0.5 mg PO ONCE PRN #20 tab 06/16/18 10/21/18 tablet ferrous fumarate 325 mg (106 mg 325 mg PO DAILY tab 06/16/18 10/21/18 iron) tablet cholecalciferol (vitamin D3) 1,000 1,000 unit PO DAILY #100 tab-cap 06/19/18 10/21/18 unit tablet pyridoxine (vitamin B6) 50 mg 50 mg PO DAILY #90 cap 06/19/18 10/21/18 capsule acetaminophen 650 mg rectal 650 mg HI Q4H PRN #90 supp MDD 07/17/18 10/21/18 suppository 3000 mg epinephrine 0.3 mg/0.3 mL 0.3 mg IM ONCE #2 pen 07/17/18 10/21/18 injection, auto-injector Previous Rx's Medication Instructions Recorded docusate sodium 100 mg capsule 100 mg PO BID #180 cap 11/21/17 polyethylene glycol 3350 17 gram 17 gm PO DAILY PRN #90 each 12/26/17 oral powder packet Tegretol XR 400 mg tablet,extended 400 mg PO BID #200 tab-cap NS 02/24/18 release gabapentin 800 mg tablet 800 mg PO TID #270 tab 02/24/18 multivitamin 1 tab PO DAILY #100 tab-cap 02/24/18 simethicone 80 mg chewable tablet 80 mg PO AC #100 tab.chew 02/24/18 sennosides 8.6 mg tablet 8.6 mg PO DAILY PRN #90 tab 04/01/18 pantoprazole 40 mg tablet,delayed 40 mg PO BID #180 tab-cap 04/24/18 release clonazepam 0.5 mg disintegrating 0.5 mg PO ONCE PRN #20 tab 06/16/18 tablet cholecalciferol (vitamin D3) 1,000 1,000 unit PO DAILY #100 tab-cap 06/19/18 unit tablet pyridoxine (vitamin B6) 50 mg 50 mg PO DAILY #90 cap 06/19/18 capsule acetaminophen 650 mg rectal 650 mg HI Q4H PRN #90 supp MDD 07/17/18 suppository 3000 mg epinephrine 0.3 mg/0.3 mL 0.3 mg IM ONCE #2 pen 07/17/18 injection, auto-injector Allergies Allergy/AdvReac Type Severity Reaction Status Date / Time latex Allergy Severe ANAPHYLAXIS Unverified 10/21/18 11:46 venom-honey bee Allergy Unknown Unverified 10/21/18 11:46 General Stated Complaint: GenMedical JUANJO: 3 Review of Systems Review of Systems All systems reviewed & are unremarkable except as noted in HPI and below PFSH Medical History (Updated 08/13/18 @ 15:06 by Elza Adair) Anemia (Resolved) Anemia, chronic disease (Chronic 09/18/16) Aspiration pneumonia (Acute) 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) Blindness of both eyes (Chronic) Bowel and bladder incontinence (Chronic 01/28/14) Cerebral palsy (Chronic) Epilepsy (Resolved 04/12/11) Focal epilepsy with impairment of consciousness, intractable (Chronic) GERD (gastroesophageal reflux disease) (Chronic) Hydrocephalus (Chronic 04/30/14) Hydronephrosis (Acute ~02/2018) Hypernatremia (Resolved) Hypokalemia (Resolved) Idiopathic scoliosis (Chronic) Mental retardation (Chronic) Pneumonia (Resolved) Right nephrolithiasis (Acute) Seizure disorder (Resolved) Swallowing impaired (Chronic) Vitamin D deficiency (Chronic) Surgical History (Updated 08/13/18 @ 15:07 by Elza Adair) FEMORAL DIVISION H/O nephrostomy (Acute) History of lung surgery (Acute) S/P ureteral stent placement (Acute ~06/28/18) SHUNT Social History Smoking/Tobacco Use Status: Never Alcohol Intake: never Drug use: Never Substance use type: does not use Caregiver/Support person: Yes Household members: caregiver Housing: house Number of Children: 0 Pets and animals: Yes Pets and animals: dog(s) Frequency: does not exercise Latonya/Christianity: None Special latonya needs: No Seatbelt use: always Exam Narrative Exam Narrative: 1.Const: Thin, cachectic, at baseline 2.Eyes: Notable chronic opacification of his eyes bilaterally. Pupils are not visualized. 3.ENT: Atraumatic external nose and ears. Moist MM. Neck: Symmetric, trachea midline, No thyromegaly. 4.CVS: +S1/S2, No murmurs or gallops. Peripheral pulses 2+ and equal in all extremities. Brisk capillary refill in all extremities. 5.RESP: Unlabored respiratory effort. Clear to auscultation bilaterally. No wheezes rales or rhonchi 6.GI: Soft, Nontender/Nondistended, No hepatosplenomegaly. No guarding or rebound. 7.MSK: Normocephalic/Atraumatic, Extremities w/o deformity or ttp . All extremities are retracted which is at his normal pace 8.Skin: Warm, Dry. No rashes or lesions. 9.Neuro: Neuro exam is limited secondary to patient's mental baseline, and chronic medical problems. He does respond mildly to commands. He does seem to move all extremities. Exam there appears to be no nuchal rigidity or meningismus. Course Vital Signs Temperature 36.7 C 10/21/18 11:42 Pulse 104 H 10/21/18 11:42 Respiratory Rate 16 10/21/18 11:42 Blood Pressure 112/79 10/21/18 11:42 Pulse Oximetry 100 10/21/18 11:42 Temperature 36.7 C 10/21/18 11:42 Temperature Source Temporal Artery Scan 10/21/18 11:42 Pulse 104 H 10/21/18 11:42 Respiratory Rate 16 10/21/18 11:42 Blood Pressure 112/79 10/21/18 11:42 Blood Pressure Position Sitting 10/21/18 11:42 Pulse Oximetry 100 10/21/18 11:42 Oxygen Delivery Method Room Air 10/21/18 11:42 Oxygen Flow Rate 0 10/21/18 11:42
--- NOTE | 2018-10-21 11:56 | DI.CT_ITS ---
SYMPTOMS/DIAGNOSIS: CONFUSION, SHUNT EVALUATION HEAD CT: Comparison is made with head CT of [id number]. 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 There are areas of stable encephalomalacia and atrophy in the left posterior frontal and parietal regions. Chronic skull deformity is again noted. The ventricles are unchanged in size. No acute hemorrhage or infarct is seen. IMPRESSION: Stable appearance of ventricular peritoneal shunts and stable chronic areas of encephalomalacia.
--- NOTE | 2018-10-21 11:56 | DI.RAD_ITS ---
SYMPTOMS/DIAGNOSIS: CONFUSION, EVALUATION OF SHUNT SHUNT SERIES: Comparison is made with [id number]. Left sided ventricular peritoneal shunt is seen. There is also evidence of a previously existing shunt with discontinuity of the shunt tubing. There has been no change in the positioning of the shunts or evidence of new shunt disruption. Skull deformity is again noted. 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 There is also severe bilateral chronic hip deformities. The heart size is normal. The lungs appear clear. The bowel gas pattern is unremarkable. There is an increased quantity of stool seen in the descending colon and rectum. IMPRESSION: Intact ventriculoperitoneal shunt. There is an older shunt which again shows disruption.
[2018-10-21 12:55] LABS: BE (Venous) 4.8 mmol/L (-3-3); HCO3 (Venous) 29 mmol/L (22-28); O2 Sat (Venous) 97 % (70-80); TCO2 (Venous) 26 mmol/L (22-29); pCO2 (Venous) 43 mm/Hg (34-47); pH (Venous) 7.44 (7.32-7.43); pO2 (Venous) 83 mm/Hg (28-44)
[2018-10-21 13:07] LABS: Abs Immature Grans 0.01 k/cumm (0.0-0.09); Absolute Basophil Count 0.03 k/cumm (0.0-0.2); Absolute Eosinophil Count 0.13 k/cumm (0.0-0.7); Absolute Lymphocyte Count 1.07 k/cumm (1.2-3.4); Absolute Monocyte Count 0.43 k/cumm (0.11-0.7); Absolute Neutrophil Count 3.33 k/cumm (1.2-6.7); Basophils % 0.6; Eosinophils % 2.6; HCT 38.6 % (40.0-50.0); Immature Grans % 0.2; Lymphocytes % 21.4; Mean Corp. HGB Concentration 31.1 g/dL (32.0-36.0); Mean Corpuscular Hemoglobin 27.4 pg (27.0-33.0); Mean Corpuscular Volume 88.1 fL (80-95); Mean Platelet Volume 9.7 fL (8.0-11.0); Monocytes % 8.6; Neutrophils % 66.6; Platelet Count 406 x1000/uL (130-400); RBC 4.38 m/cumm (4.50-6.00); RBC Distribution Width 14.6 % (11.8-14.1)
[2018-10-21 13:09] LABS: Ammonia 15 umol/L (11-32)
[2018-10-21 13:12] LABS: ALT 25 U/L (12-78); AST 11 U/L (15-37); Alkaline Phosphatase 108 U/L (46-116); Anion Gap 12.3 mmol/L (3-11); BUN 11 mg/dL (7-18); Bilirubin, Total 0.1 mg/dL (0.2-1.0); CO2 26.7 mmol/L (21.0-32.0); CREATININE 0.79 mg/dL (0.70-1.30); Calcium 9.1 mg/dL (8.5-10.1); Chloride 103 mmol/L (98-107); Glucose 96 mg/dL (70-100); Potassium 3.8 mmol/L (3.5-5.1); Sodium 142 mmol/L (136-145)
[2018-10-21 13:36] LABS: Prothrombin Time 9.8 sec (9.3-11.0)
[2018-10-21 13:40] LABS: PTT Activated 17.8 sec (21.0-31.4)
[2018-10-21 15:40] LABS: TROPONIN-I 5.8 ug/mL (4.0-12.0)
[2018-10-21 15:44] LABS: Bilirubin Negative (Negative); Blood Negative (Negative); Clarity Clear (Clear); Glucose Negative (Negative); Ketones Negative (Negative); Leukocyte Esterase Moderate (Negative); Nitrite Negative (Negative); Urobilinogen 0.2 EU/dL (Up TO 0.2); pH 7.5 (5-8)
[2018-10-21] MEDS: levETIRAcetam 1,000 MG in Normal Saline 100 ML 400 MG IVPB (15:51)
[2018-10-21] MEDS: Normal Saline 500 ML 1000 ML IV ×2 (15:51→16:27)
[2018-10-21 15:56] LABS: Bacteria Rare HPF (Negative); C & S Indicated? Yes; Casts Negative LPF (Negative); Crystals Negative HPF (Negative); Epithelial Cells Negative HPF (Negative); Mucus Negative (Negative); RBC 0-2 (0-2)
[2018-10-21] MEDS: cefTRIAXone 1 GM/50 ML BAG IVPB (16:27)
[2018-10-21] MEDS: Normal Saline 1,000 ML 200 ML IV (16:49)
[2018-10-21 19:10] LABS: Procalcitonin 0.1 ng/mL
--- NOTE | 2018-10-21 19:15 | HPE_ITS ---
Date of service: 10/21/18 Time of Service: 19:15 Assessment and Plan (1) Change in mental status: Current visit: No Status: Acute Altered mental status with increase in seizure activity, potentially on the basis of infection in patient with history of kidney stones and UTI in the past. - Urinalysis with evidence of UTI - given concurrent hypotension and change in mental status will treat broadly, and await culture results. - Obtain blood cultures, and check CXR to rule out other sources of infection. Aggressive IVFs given drop in blood pressure - please note that patient is chronically hypotensive. (2) UTI (urinary tract infection): Current visit: No Status: Acute Initiate Vancomycin and Meropenem as above. History of Pansensitive E. Coli. (3) Focal epilepsy with impairment of consciousness, intractable: Current visit: No Status: Chronic Increase in seizure activity likely on basis of infection. - Continue Carbemazepine, initiate IV Keppra, and check EEG. Neuro also checked CT Head, with patency of shunts verified. Monitor in the ICU for now. (4) DVT prophylaxis: Current visit: Yes Status: Acute SC Enoxaparin. History of Present Illness Chief Complaint: Seizures Narrative: 33 year old man with a history of Cerebral Palsy, Seizure Disorder, and prior UTI in the setting of kidney stones admitted from [facility] Emergency Department with a diagnosis of worsening seizures in the setting of likely Urinary Infection. Mr. Holloway has a prior Medical History significant for Cerebral Palsy with severe Developmental Delay, Hydrocephalus s/p ALTERNATIVE MEDICINE PRACTITIONER Shunt with prior revision, Intractable Epilepsy on AED with Carbamazepine, and reported blindness. He was hospitalized in February of 2018 with what appeared to be sepsis based on Urinary Infection, found to have multiple kidney stones - he underwent PCN tube placement via [place] at [facility] [place], and treated for a pansensitive E.Coli infection. He has since undergone interventions with stent placement, stone evacuation, and stent removal per discussion with caregiver. He is reported to have up to 2 seizures a month, but for the last few months he has been experiencing just 1. However, he was noted to have 2 seizures yesterday followed by 2 more today, and brought in for further evaluation in the ED. Caregiver also reports noted increase in fatigue, and decrease oral intake over the last week or so. Work-up in the ED noted potential UTI by labs, and stable and patent ALTERNATIVE MEDICINE PRACTITIONER shunts by imaging. He also experienced worsening hypotension and altered mental status while in the ED. He was admitted for further evaluation and treatment. 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) Blindness of both eyes (Chronic) Bowel and bladder incontinence (Chronic 01/28/14) Cerebral palsy (Chronic) Epilepsy (Resolved 04/12/11) Focal epilepsy with impairment of consciousness, intractable (Chronic) GERD (gastroesophageal reflux disease) (Chronic) Hydrocephalus (Chronic 04/30/14) Hydronephrosis (Acute ~02/2018) Hypernatremia (Resolved) Hypokalemia (Resolved) Idiopathic scoliosis (Chronic) Mental retardation (Chronic) Pneumonia (Resolved) Right nephrolithiasis (Acute) Seizure disorder (Resolved) Swallowing impaired (Chronic) Vitamin D deficiency (Chronic) Surgical History FEMORAL DIVISION H/O nephrostomy (Acute) History of lung surgery (Acute) S/P ureteral stent placement (Acute ~06/28/18) SHUNT Family History Mother Cancer Father No problems noted. Sister Neoplasm Maternal Grandfather Cancer Maternal Grandmother Cancer Brother No problems noted. Social History Smoking/Tobacco Use Status: Never Alcohol Intake: never Drug use: Never Substance use type: does not use Caregiver/Support person: Yes Household members: caregiver Housing: house Number of Children: 0 Pets and animals: Yes Pets and animals: dog(s) Frequency: does not exercise Latonya/Rastafari: None Special latonya needs: No Seatbelt use: always Meds Home Medications Medication Instructions Recorded Confirmed Type Perla Protect 1 gm PRN PRN 05/31/17 10/21/18 History nystatin 1 gm PRN PRN 05/31/17 10/21/18 History Pediatric Balanced Nutrition 1 bottle PO BID #60 bottle 07/08/17 10/21/18 History docusate sodium 100 mg capsule 100 mg PO BID #180 cap 11/21/17 10/21/18 Rx polyethylene glycol 3350 17 gram 17 gm PO DAILY PRN #90 each 12/26/17 10/21/18 Rx oral powder packet Tegretol XR 400 mg tablet,extended 400 mg PO BID #200 tab-cap NS 02/24/18 10/21/18 Rx release gabapentin 800 mg tablet 800 mg PO TID #270 tab 02/24/18 10/21/18 Rx multivitamin 1 tab PO DAILY #100 tab-cap 02/24/18 10/21/18 Rx simethicone 80 mg chewable tablet 80 mg PO AC #100 tab.chew 02/24/18 10/21/18 Rx sennosides 8.6 mg tablet 8.6 mg PO DAILY PRN #90 tab 04/01/18 10/21/18 Rx ascorbic acid (vitamin C) 1,000 mg 1 gm PO DAILY tab 04/20/18 10/21/18 History tablet pantoprazole 40 mg tablet,delayed 40 mg PO BID #180 tab-cap 04/24/18 10/21/18 Rx release clonazepam 0.5 mg disintegrating 0.5 mg PO ONCE PRN #20 tab 06/16/18 10/21/18 Rx tablet ferrous fumarate 325 mg (106 mg 325 mg PO DAILY tab 06/16/18 10/21/18 History iron) tablet cholecalciferol (vitamin D3) 1,000 1,000 unit PO DAILY #100 tab-cap 06/19/18 10/21/18 Rx unit tablet pyridoxine (vitamin B6) 50 mg 50 mg PO DAILY #90 cap 06/19/18 10/21/18 Rx capsule acetaminophen 650 mg rectal 650 mg NV Q4H PRN #90 supp MDD 07/17/18 10/21/18 Rx suppository 3000 mg epinephrine 0.3 mg/0.3 mL 0.3 mg IM ONCE #2 pen 07/17/18 10/21/18 Rx injection, auto-injector Allergies Allergy/AdvReac Type Severity Reaction Status Date / Time latex Allergy Severe ANAPHYLAXIS Unverified 10/21/18 11:46 venom-honey bee Allergy Unknown Unverified 10/21/18 11:46 Exam Narrative Exam Narrative: General: Patient appears non-toxic. Nonverbal, non-responsive to outside stimuli at this time. Neck: Supple CV: Regular, nontachycardic, S1S2, No rubs, murmurs, or gallops. Pulmonary: Clear to auscultation bilaterally, no crackles, wheezing, or rhonchi on limited anterior and lateral exam Abdomen: + Bowel Sounds, soft, nondistended Vascular: No lower extremity edema Results Imaging Additional studies: Exam(s) a CT:CT head wo SYMPTOMS/DIAGNOSIS: CONFUSION, SHUNT EVALUATION HEAD CT: Comparison is made with head CT of [id number]. 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 There are areas of stable encephalomalacia and atrophy in the left posterior frontal and parietal regions. Chronic skull deformity is again noted. The ventricles are unchanged in size. No acute hemorrhage or infarct is seen. IMPRESSION: Stable appearance of ventricular peritoneal shunts and stable chronic areas of encephalomalacia. Labs : 10/21/18 12:50 10/21/18 12:50 Laboratory Results - last 24 hr 10/21/18 10/21/18 10/21/18 12:50 12:50 12:50 WBC 5.00 RBC 4.38 L Hgb 12.0 L Hct 38.6 L MCV 88.1 MCH 27.4 MCHC 31.1 L RDW 14.6 H Plt Count 406 H MPV 9.7 Immature Gran % 0.2 Neutrophils % 66.6 Lymphocytes % 21.4 Monocytes % 8.6 Eosinophils % 2.6 Basophils % 0.6 Absolute Neutrophils 3.33 Absolute Lymphocytes 1.07 L Absolute Monocytes 0.43 Absolute Eosinophils 0.13 Absolute Basophils 0.03 PT INR APTT VBG pH VBG pCO2 VBG pO2 VBG HCO3 VBG Total CO2 VBG O2 Saturation VBG Base Excess Sodium 142 Potassium 3.8 Chloride 103 Carbon Dioxide 26.7 Anion Gap 12.3 H BUN 11 Creatinine 0.79 Estimated GFR/1.73 m2 >= 60.00 Glucose 96 Calcium 9.1 Total Bilirubin 0.1 L AST 11 L ALT 25 Alkaline Phosphatase 108 Ammonia 15 Total Protein 7.0 Albumin 3.0 L Procalcitonin Urine Color Urine Clarity Urine pH Ur Specific [place] Urine Protein Urine Ketones Urine Blood Urine Nitrite Urine Bilirubin Urine Urobilinogen Ur Leukocyte Esterase Urine RBC Urine WBC Ur Epithelial Cells Urine Crystals Urine Bacteria Urine Casts Urine Mucus Ur Culture Indicated? Urine Glucose Carbamazepine 0810/21/18 10/21/18 12:50 12:50 12:50 WBC RBC Hgb Hct MCV MCH MCHC RDW Plt Count MPV Immature Gran % Neutrophils % Lymphocytes % Monocytes % Eosinophils % Basophils % Absolute Neutrophils Absolute Lymphocytes Absolute Monocytes Absolute Eosinophils Absolute Basophils PT 9.8 INR 1.0 APTT 17.8 L VBG pH 7.44 H VBG pCO2 43 VBG pO2 83 H VBG HCO3 29 H VBG Total CO2 26 VBG O2 Saturation 97 H VBG Base Excess 4.8 H Sodium Potassium Chloride Carbon Dioxide Anion Gap BUN Creatinine Estimated GFR/1.73 m2 Glucose Calcium Total Bilirubin AST ALT Alkaline Phosphatase Ammonia Total Protein Albumin Procalcitonin Urine Color Urine Clarity Urine pH Ur Specific [place] Urine Protein Urine Ketones Urine Blood Urine Nitrite Urine Bilirubin Urine Urobilinogen Ur Leukocyte Esterase Urine RBC Urine WBC Ur Epithelial Cells Urine Crystals Urine Bacteria Urine Casts Urine Mucus Ur Culture Indicated? Urine Glucose Carbamazepine 5.8 10/21/18 10/21/18 12:50 15:32 WBC RBC Hgb Hct MCV MCH MCHC RDW Plt Count MPV Immature Gran % Neutrophils % Lymphocytes % Monocytes % Eosinophils % Basophils % Absolute Neutrophils Absolute Lymphocytes Absolute Monocytes Absolute Eosinophils Absolute Basophils PT INR APTT VBG pH VBG pCO2 VBG pO2 VBG HCO3 VBG Total CO2 VBG O2 Saturation VBG Base Excess Sodium Potassium Chloride Carbon Dioxide Anion Gap BUN Creatinine Estimated GFR/1.73 m2 Glucose Calcium Total Bilirubin AST ALT Alkaline Phosphatase Ammonia Total Protein Albumin Procalcitonin 0.1 Urine Color Yellow Urine Clarity Clear Urine pH 7.5 Ur Specific [place] 1.010 Urine Protein Negative Urine Ketones Negative Urine Blood Negative Urine Nitrite Negative Urine Bilirubin Negative Urine Urobilinogen 0.2 Ur Leukocyte Esterase Moderate H Urine RBC 0-2 Urine WBC 10-20 Ur Epithelial Cells Negative Urine Crystals Negative Urine Bacteria Rare Urine Casts Negative Urine Mucus Negative Ur Culture Indicated? Yes Urine Glucose Negative Carbamazepine Last Vital Signs Temp 36.3 C L 10/21/18 18:54 Pulse 81 10/21/18 18:54 Resp 16 10/21/18 18:54 BP 93/58 L 10/21/18 18:54 Pulse Ox 99 10/21/18 18:54
--- NOTE | 2018-10-21 19:26 | DI.RAD_ITS ---
SYMPTOM/DIAGNOSIS: INCREASED SEIZURES, RULE OUT PNEUMONIA/INFECTION SUPINE AP CHEST: 10/21/18 The patient is rotated to the right and there is scoliosis. Left lung remains clear in comparison with chest film of 06/27/18. Question increased radiodensity in portions of right lung, both upper lobe and lower lobe. Cardiac size within normal limits. No pleural effusion seen on the supine film. 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 CONCLUSION: Possible right sided pneumonia, repeat chest films recommended for further evaluation.
--- NOTE | 2018-10-21 19:53 | DI.VRAD_ITS ---
EXAM: XR Chest, 1 View EXAM DATE/TIME: 10/21/2018 7:19 PM CLINICAL HISTORY: 33 years old, male; Patient HX: Increased seizures. R/O pneumonia TECHNIQUE: Imaging protocol: XR of the chest, 1 view. COMPARISON: SC XR PORTABLE CHEST AP 27/06/2018 13:02 FINDINGS: Lungs: The patient is rotated to the right. Increased markings at the right lung base and right upper lobe new compared with prior study likely corresponding to pneumonia.. Hypoventilation. Pleural space: Unremarkable. No pleural effusion. No pneumothorax. Heart/Mediastinum: Unremarkable. No cardiomegaly. Upper abdomen: Tubes overlying the right chest and right upper abdomen not within loops of bowel. The significance or identity of these catheters is uncertain, but they're unchanged from prior study. Bones/joints: Unremarkable. IMPRESSION: Suspect right pneumonia. Dictated and Authenticated by: Suzie Paz MD. Ordering:SHARRON Soni MD
[2018-10-21 20:14] LABS: Lactate-non-spesis 1.4 mmol/l (0.6-1.4)
[2018-10-21] MEDS: Docusate Sodium 100 MG CAP PO (20:20)
[2018-10-21] MEDS: Gabapentin 800 MG TAB PO (20:20)
[2018-10-21] MEDS: Pantoprazole 40 MG VIAL IVP (20:21)
[2018-10-21] MEDS: Enoxaparin 40 MG/0.4 ML SYR SC (20:22)
[2018-10-21] MEDS: carBAMazepine 200 MG TAB 400 MG PO (20:30)
--- NOTE | 2018-10-21 20:54 | NUR.NOTE ---
Attempted to insert 16Fr and also 14Fr catheter, unable to get catheter in after two attempts. Family notes recent testing. Condom cath applied, draining clear yellow urine. Nursing Note:
[2018-10-21] MEDS: Normal Saline 1,000 ML 150 ML IV (22:26)
[2018-10-22] VITALS (41 sets, daily range): BP systolic 61–99; BP diastolic 36–63; PULSE 50–94; RESP 10–26; TEMP 36.3–36.9; O2SAT 95–100
[2018-10-22] MEDS: levETIRAcetam 1,000 MG in Normal Saline 100 ML 400 MG IVPB ×2 (04:58→16:41)
[2018-10-22 07:29] LABS: Abs Immature Grans 0.01 k/cumm (0.0-0.09); Absolute Basophil Count 0.02 k/cumm (0.0-0.2); Absolute Eosinophil Count 0.31 k/cumm (0.0-0.7); Absolute Monocyte Count 0.52 k/cumm (0.11-0.7); Absolute Neutrophil Count 3.72 k/cumm (1.2-6.7); Basophils % 0.3; Eosinophils % 5.2; HCT 31.7 % (40.0-50.0); HGB 9.4 g/dL (13.5-17.5); Immature Grans % 0.2; Lymphocytes % 23.4; Mean Corp. HGB Concentration 29.7 g/dL (32.0-36.0); Mean Corpuscular Volume 91.1 fL (80-95); Monocytes % 8.7; Neutrophils % 62.2; Platelet Count 358 x1000/uL (130-400); RBC 3.48 m/cumm (4.50-6.00); RBC Distribution Width 14.9 % (11.8-14.1); White Blood Cell Count 5.98 k/cumm (4.4-10.8)
[2018-10-22 07:40] LABS: Anion Gap 8.2 mmol/L (3-11); BUN 6 mg/dL (7-18); CO2 24.8 mmol/L (21.0-32.0); CREATININE 0.78 mg/dL (0.70-1.30); Chloride 118 mmol/L (98-107); Glucose 87 mg/dL (70-100); Magnesium 1.8 mg/dL (1.8-2.4); Potassium 3.4 mmol/L (3.5-5.1); Sodium 151 mmol/L (136-145)
--- NOTE | 2018-10-22 08:11 | PHARADMIT ---
Addendum entered by Jeannie Marcus 10/23/18 13:45: Pharmacy Note Subjective MD thinks increase in seizure activity was likely due to infection, Objective BP-96/66 other VS okay K+2.9 Cl-108 Assessment levetiracetam and pantoprazole changed from IV to PO IV and PO potassium replacement ordered PO mag replacement ordered vanco and meropenem changed to augmentin blood cultures- no growth; urine culture grew gram+ viridiana Plan continue to watch VS, labs and for med changes Original Note: Admission Pharmacy Clinical Review SEIZURE, UTI Code Status DNR/DNI Current Weight Wgt-29.6 kg Renally Cleared and Narrow Therapeutic Index Meds CrCl~ 53 mL/min Meds-OK QTc Value / Action Taken none current BP Control, Fever BP-85/43 Tmax- 36.7C Electrolytes reviewed Na- 151 K+3.4 Mag-1.8 DVT Prophylaxis Lovenox 40mg Opiate Usage / Scheduled Bowel Regimen Ordered No m Yes Plt/SCr for Heparin / Enoxaparin Plts-358 SCr-0.78 INR for Warfarin inr-1.0 H/H stable, WBC/Bands H&H- 9.4/31.7 WBC- 5.98 Antibiotic appropriateness Meropenem, Vancomycin Cultures and Sensitivities Blood, Urine-Pending Surgical ABX d/c within 24 hr na DM control / Insulin Dosing BG-87 Heart Failure (Check EF%) (FESTUS's, B-Block, Diuretics) none IV to PO Switch No Home Meds Reviewed Yes Home Meds Not Ordered EpiPen Iron, Comments Carbamazepine 5.98 (4.0-12.0
--- NOTE | 2018-10-22 08:16 | PDOC.CMIN ---
- If Service Date Differs Date of service: 10/22/18 Time of Service: 08:17 Care Management Initial Assess REASON FOR HOSPITALIZATION:: change in mental status PAST MEDICAL HISTORY/PAST SURGICAL HISTORY:: Medical History: Anemia (Resolved). Anemia, chronic disease (Chronic 09/18/16). Aspiration pneumonia (Acute). 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 Bowel and bladder incontinence (Chronic 01/28/14). Cerebral palsy (Chronic). Epilepsy (Resolved 04/12/11). Focal epilepsy with impairment of consciousness, intractable (Chronic). GERD (gastroesophageal reflux disease) (Chronic). Hydrocephalus (Chronic 04/30/14). Hydronephrosis (Acute ~02/2018). Hypernatremia (Resolved). Hypokalemia (Resolved). Idiopathic scoliosis (Chronic). Mental retardation (Chronic). Pneumonia (Resolved). Right nephrolithiasis (Acute). Seizure disorder (Resolved). Swallowing impaired (Chronic). Vitamin D deficiency (Chronic). Surgical History: FEMORAL DIVISION. H/O nephrostomy (Acute). History of lung surgery (Acute). S/P ureteral stent placement (Acute ~06/28/18). SHUNT PREVIOUS FUNCTIONAL STATUS/SOCIAL/FAMILY SUPPORTS:: Gio lives with a home provider Arabella and he has a court appointed guardian Garland Gaffney, contact number is [phone]. Chilo is dependent for all ADL's including feeding. He is cared for by Arabella and also her grandson Taurus. He is wheelchair dependent. CURRENT FUNCTIONAL STATUS:: Joshua was lying in bed being fed by his finishing machine operator automatic Arabella. Arabella states that he has a good appetite today and is eating well. Joseph was not able to verbalize his thoughts or feelings but Arabella feels he is better than when he first came into the hospital.She stated that she hopes we can determine what is going on so that he can return to baseline. ADVANCE DIRECTIVES:: Garland Paige - legal guardian Has patient been provided with information about the portal?: No Did the patient sign up for the portal?: No CODE STATUS:: DNR/DNI INSURANCE COVERAGE / FINANCIAL ISSUES:: Medicaid CURRENT HOME/COMMUNITY SERVICES/EQUIPMENT:: Joshua has a 24 hour caregiver and he lives in her home. He has a wheelchair. Support services through Palliative Care with Dr. Wolf. PRIMARY CARE PHYSICIAN:: Pascual Johnson POTENTIAL DISCHARGE NEEDS:: Follow up with PCP and discharge plan of care. PATIENT/FAMILY EDUCATION NEEDS:: Discharge plan, limitations, follow up plan, Ask Me Three TRANSPORTATION:: via private vehicle with caregiver when ready. PLAN:: Joshua remains ICU level of care. He is hypotensive and is being monitored closely. He will likely return home with his caregiver with no additional services.CM will continue to provide support to patient, caregiver and discharge planning considerations.
[2018-10-22] MEDS: Simethicone 80 MG CHEW PO ×3 (09:17→16:41)
[2018-10-22] MEDS: Ascorbic Acid 500 MG TAB 1000 MG PO (09:17)
[2018-10-22] MEDS: Cholecalciferol (Vitamin D3) 1,000 UNIT TAB 1000 UNITS PO (09:17)
[2018-10-22] MEDS: Docusate Sodium 100 MG CAP PO (09:17)
[2018-10-22] MEDS: Gabapentin 800 MG TAB PO ×3 (09:17→17:26)
[2018-10-22] MEDS: carBAMazepine 200 MG TAB 400 MG PO ×2 (09:17→17:25)
[2018-10-22] MEDS: VANCOMYCIN 500 MG in Normal Saline 100 ML 100 MG IVPB ×3 (09:18→20:00)
[2018-10-22] MEDS: Multivitamin TAB 1 TAB PO (09:18)
[2018-10-22] MEDS: POTASSIUM CHLORIDE 20 MEQ/100 ML BAG 50 MEQ IVPB (09:55)
[2018-10-22] MEDS: SODIUM CHLORIDE 0.45% 1,000 ML 75 ML IV (09:55)
--- NOTE | 2018-10-22 12:35 | DI.US_ITS ---
SYMPTOM/DIAGNOSIS: UTI WITH SEPSIS, H/O STONES AND HYDRO RENAL ULTRASOUND: The kidneys are normal in size and shape. There is marked echogenicity in the region of the renal papillae and medulla bilaterally consistent with nephrocalcinosis. There is suggestion of mild hydronephrosis bilaterally. Urinary bladder shows pre and post void volume measurements of 72 cc's and 12 cc's respectively. Left ureteral jet visualized, right ureteral jet non visualized. CONCLUSION: Bilateral nephrocalcinosis, prior CT of 03/07/18 also showed multiple bilateral renal calcifications. Findings suggesting mild bilateral hydronephrosis.
--- NOTE | 2018-10-22 14:14 | PGE_ITS ---
Date of Service Date of service: 10/22/18 Time of Service: 14:14 Assessment and Plan (1) Change in mental status: Current visit: No Status: Acute Altered mental status with increase in seizure activity, potentially on the basis of infection in patient with history of kidney stones and UTI in the past, and current evidence of pulmonary infiltrate. - Urinalysis with evidence of UTI - given concurrent hypotension and change in mental status initiated broad spectrum coverage. Culture results without growth however. - Potential evidence of infiltrate by CXR, and given altered mental status and prior history of aspiration Pneumonia, aspiration remains a possibility. Speech consulted - continue Meropenem. - Currently on Vancomycin and Meropenem day #1 and await culture results. Procalcitonin 0.1. (2) Pneumonia: Current visit: Yes Status: Acute Treatment as above. (3) UTI (urinary tract infection): Current visit: No Status: Acute Current cultures negative. History of Pansensitive E. Coli. (4) Focal epilepsy with impairment of consciousness, intractable: Current visit: No Status: Chronic Increase in seizure activity likely on basis of infection. - Continue Carbemazepine, IV Keppra, and check EEG. Neuro also checked CT Head, with patency of shunts verified. Monitor in the ICU for now. (5) DVT prophylaxis: Current visit: Yes Status: Acute SC Enoxaparin. Subjective Interval history since last seen: 33 year old man with a history of Cerebral Palsy, Seizure Disorder, and prior UTI in the setting of kidney stones, admitted from [facility] Emergency Department with a diagnosis of worsening seizures in the setting of likely Urinary Infection. Mr. Holloway has a prior Medical History significant for Cerebral Palsy with severe Developmental Delay, Hydrocephalus s/p CEMENT MIXER DRIVER Shunt with prior revision, Intractable Epilepsy on AED with Carbamazepine, and reported blindness. He was hospitalized in February of 2018 with what appeared to be sepsis based on a Urinary Infection, found to have multiple kidney stones - he underwent PCN tube placement via IR at [facility], and treated for a pansensitive E.Coli infection. He has since undergone interventions with stent placement, stone evacuation, and stent removal per discussion with caregiver. He is reported to have up to 2 seizures a month, but for the last few months he has been experiencing just 1. However, he was noted to have 2 seizures the day prior to admission, followed by 2 more on the day of admission. He was brought in for further evaluation in the ED. Caregiver also reports noted increase in fatigue, and decrease oral intake over the last week or so. Work-up in the ED noted potential UTI by labs, and stable and patent CEMENT MIXER DRIVER shunts by imaging. He also experienced worsening hypotension and altered mental status while in the ED. He was admitted for further evaluation and treatment. Following admission a CXR was obtained and showed a potential right sided infiltrate. His urinalysis was suspicious for a UTI, but so far without growth on Cultures. Renal ultrasound showed bilateral nephrocalcinosis, with mild bilateral hydronephrosis. Mr. Holloway has remained afebrile and without a leukocytosis. He remains on broad spectrum antibiotics. No further seizure activity was noted. Remains nonverbal. No overnight events reported. Exam Narrative Exam Narrative: General: Patient appears non-toxic. Nonverbal, non-responsive to outside stimuli at this time. Neck: Supple CV: Regular, nontachycardic, S1S2, No rubs, murmurs, or gallops. Pulmonary: Clear to auscultation bilaterally, no crackles, wheezing, or rhonchi on very limited anterior and lateral exam Abdomen: + Bowel Sounds, soft, nondistended Vascular: No lower extremity edema Objective Objective Clinical Data: Abnormal lab results 10/21/18 10/22/18 10/22/18 Range/Units 15:32 06:15 06:15 RBC 3.48 L (4.50-6.00) m/cumm Hgb 9.4 L D (13.5-17.5) g/dL Hct 31.7 L (40.0-50.0) % MCHC 29.7 L (32.0-36.0) g/dL RDW 14.9 H (11.8-14.1) % Sodium 151 H (136-145) mmol/L Potassium 3.4 L (3.5-5.1) mmol/L Chloride 118 H (98-107) mmol/L BUN 6 L (7-18) mg/dL Calcium 8.0 L (8.5-10.1) mg/dL Ur Leukocyte Esterase Moderate H (Negative) Vital Signs Temperature 36.3 C L 10/22/18 12:45 Temperature Source Temporal Artery Scan 10/22/18 12:45 Pulse 66 10/22/18 13:49 Pulse 56 L 10/22/18 13:49 Respiratory Rate 10 L 10/22/18 13:49 Respiratory Effort Non-Labored 10/22/18 03:15 Respiratory Depth Normal 10/22/18 03:15 Respiratory Pattern Normal 10/22/18 03:15 Blood Pressure 77/49 L 10/22/18 13:49 Blood Pressure Mean 56 10/22/18 13:49 Blood Pressure Position Right Lateral 10/22/18 03:15 Pulse Oximetry 99 10/22/18 13:49 Oxygen Delivery Method Room Air 10/22/18 03:15 Oxygen Flow Rate 0 10/22/18 03:15 Pain Level 0 10/21/18 23:13 Intake & Output 10/21/18 10/22/18 10/22/18 23:59 11:59 23:59 Intake Total 3210.000 / 3210.000 1660 / 1780 120 / 1780 Output Total 700 / 700 1925 / 3025 1100 / 3025 Balance 2510.000 / 2510.000 -265 / -1245 -980 / -1245 Weight 27.216 kg 29.6 kg Intake: IV 2210.000 / 2210.000 1660 / 1660 Oral 1000 / 1000 120 / 120 Output: Urine 700 / 700 1925 / 3025 1100 / 3025 Other: Urine Color Pale Pale Yellow Yellow Urine Appearance Clear Clear Clear Urine Odor Normal Comment Large incontinence. Replaced condom catheter at this time Laboratory Results WBC 5.98 k/cumm (4.4-10.8) 10/22/18 06:15 RBC 3.48 m/cumm (4.50-6.00) L 10/22/18 06:15 Hgb 9.4 g/dL (13.5-17.5) L D 10/22/18 06:15 Hct 31.7 % (40.0-50.0) L 10/22/18 06:15 MCV 91.1 fL (80-95) D 10/22/18 06:15 MCH 27.0 pg (27.0-33.0) 10/22/18 06:15 MCHC 29.7 g/dL (32.0-36.0) L 10/22/18 06:15 RDW 14.9 % (11.8-14.1) H 10/22/18 06:15 Plt Count 358 x1000/uL (130-400) 10/22/18 06:15 MPV 10.0 fL (8.0-11.0) 10/22/18 06:15 Immature Gran % 0.2 10/22/18 06:15 62.2 10/22/18 06:15 23.4 10/22/18 06:15 8.7 10/22/18 06:15 5.2 10/22/18 06:15 0.3 10/22/18 06:15 Absolute Neutrophils 3.72 k/cumm (1.2-6.7) 10/22/18 06:15 Absolute Lymphocytes 1.40 k/cumm (1.2-3.4) 10/22/18 06:15 Absolute Monocytes 0.52 k/cumm (0.11-0.7) 10/22/18 06:15 Absolute Eosinophils 0.31 k/cumm (0.0-0.7) 10/22/18 06:15 Absolute Basophils 0.02 k/cumm (0.0-0.2) 10/22/18 06:15 PT 9.8 sec (9.3-11.0) 10/21/18 12:50 INR 1.0 (0.9-1.1) 10/21/18 12:50 APTT 17.8 sec (21.0-31.4) L 10/21/18 12:50 VBG pH 7.44 (7.32-7.43) H 10/21/18 12:50 VBG pCO2 43 mm/Hg (34-47) 10/21/18 12:50 VBG pO2 83 mm/Hg (28-44) H 10/21/18 12:50 VBG HCO3 29 mmol/L (22-28) H 10/21/18 12:50 VBG Total CO2 26 mmol/L (22-29) 10/21/18 12:50 VBG O2 Saturation 97 % (70-80) H 10/21/18 12:50 VBG Base Excess 4.8 mmol/L (-3-3) H 10/21/18 12:50 Sodium 151 mmol/L (136-145) H 10/22/18 06:15 Potassium 3.4 mmol/L (3.5-5.1) L 10/22/18 06:15 Chloride 118 mmol/L (98-107) H 10/22/18 06:15 Carbon Dioxide 24.8 mmol/L (21.0-32.0) 10/22/18 06:15 8.2 mmol/L (3-11) 10/22/18 06:15 BUN 6 mg/dL (7-18) L 10/22/18 06:15 0.78 mg/dL (0.70-1.30) 10/22/18 06:15 >= 60.00 (mL/min/1.73m2) 10/22/18 06:15 Glucose 87 mg/dL (70-100) 10/22/18 06:15 1.4 mmol/l (0.6-1.4) 10/21/18 19:50 Calcium 8.0 mg/dL (8.5-10.1) L 10/22/18 06:15 Magnesium 1.8 mg/dL (1.8-2.4) 10/22/18 06:15 0.1 mg/dL (0.2-1.0) L 10/21/18 12:50 AST 11 U/L (15-37) L 10/21/18 12:50 ALT 25 U/L (12-78) 10/21/18 12:50 108 U/L (46-116) 10/21/18 12:50 15 umol/L (11-32) 10/21/18 12:50 7.0 g/dL (6.4-8.2) 10/21/18 12:50 3.0 g/dL (3.4-5.0) L 10/21/18 12:50 0.1 ng/mL 10/21/18 12:50 Yellow (Yellow) 10/21/18 15:32 Clear (Clear) 10/21/18 15:32 7.5 (5-8) 10/21/18 15:32 Ur Specific [place] 1.010 (1.005-1.025) 10/21/18 15:32 Negative mg/dL (Negative) 10/21/18 15:32 Negative mg/dL (Negative) 10/21/18 15:32 Negative (Negative) 10/21/18 15:32 Negative (Negative) 10/21/18 15:32 Negative (Negative) 10/21/18 15:32 0.2 EU/dL (Up TO 0.2) 10/21/18 15:32 Ur Leukocyte Esterase Moderate (Negative) H 10/21/18 15:32 0-2 (0-2) 10/21/18 15:32 10-20 HPF (0-5) 10/21/18 15:32 Ur Epithelial Cells Negative HPF (Negative) 10/21/18 15:32 Negative HPF (Negative) 10/21/18 15:32 Rare HPF (Negative) 10/21/18 15:32 Negative LPF (Negative) 10/21/18 15:32 Negative (Negative) 10/21/18 15:32 Ur Culture Indicated? Yes 10/21/18 15:32 Negative mg/dL (Negative) 10/21/18 15:32 Carbamazepine 5.8 ug/mL (4.0-12.0) 10/21/18 12:50 Objective Narrative Objective Narrative: Exam(s) 10/21/2018 a RAD:XR portable chest AP SYMPTOM/DIAGNOSIS: INCREASED SEIZURES, RULE OUT PNEUMONIA/INFECTION SUPINE AP CHEST: 10/21/18 The patient is rotated to the right and there is scoliosis. Left lung remains clear in comparison with chest film of 06/27/18. Question increased radiodensity in portions of right lung, both upper lobe and lower lobe. Cardiac size within normal limits. No pleural effusion seen on the supine film. CEMENT MIXER DRIVER shunt noted. CONCLUSION: Possible right sided pneumonia, repeat chest films recommended for further evaluation. Exam(s) 10/22/2018 a US:US renal SYMPTOM/DIAGNOSIS: UTI WITH SEPSIS, H/O STONES AND HYDRO RENAL ULTRASOUND: The kidneys are normal in size and shape. There is marked echogenicity in the region of the renal papillae and medulla bilaterally consistent with nephrocalcinosis. There is suggestion of mild hydronephrosis bilaterally. Urinary bladder shows pre and post void volume measurements of 72 cc's and 12 cc's respectively. Left ureteral jet visualized, right ureteral jet non visualized. CONCLUSION: Bilateral nephrocalcinosis, prior CT of 03/07/18 also showed multiple bilateral renal calcifications. Findings suggesting mild bilateral hydronephrosis.
--- NOTE | 2018-10-22 14:31 | CHAPLAIN ---
Chilo was sleeping when I visited and I spoke with his caregiver, Arabella. Arabella and I know each other from Guy's previous admissions. She has cared for Guy for several year and is very attuned to his physical and emotional needs. She stays in the hospital wiith him, day and night. Arabella's daughter, Adela is an [employer] ICU nurse. I offered support and will continue to check in on Guy and Arabella.
[2018-10-22] MEDS: Pantoprazole 40 MG VIAL IVP (20:00)
[2018-10-23] VITALS (73 sets, daily range): BP systolic 74–96; BP diastolic 35–66; PULSE 52–108; RESP 12–26; TEMP 36–37.5; O2SAT 89–100
[2018-10-23] MEDS: VANCOMYCIN 500 MG in Normal Saline 100 ML 133 MG IVPB (02:47)
[2018-10-23] MEDS: levETIRAcetam 1,000 MG in Normal Saline 100 ML 100 MG IVPB (05:02)
[2018-10-23 07:07] LABS: Absolute Basophil Count 0.03 k/cumm (0.0-0.2); Absolute Lymphocyte Count 1.43 k/cumm (1.2-3.4); Absolute Monocyte Count 0.54 k/cumm (0.11-0.7); Absolute Neutrophil Count 3.26 k/cumm (1.2-6.7); Basophils % 0.5; Eosinophils % 7.1; HGB 10.9 g/dL (13.5-17.5); Lymphocytes % 25.3; Mean Corp. HGB Concentration 30.3 g/dL (32.0-36.0); Mean Corpuscular Hemoglobin 26.9 pg (27.0-33.0); Mean Corpuscular Volume 88.9 fL (80-95); Monocytes % 9.5; Neutrophils % 57.6; Platelet Count 399 x1000/uL (130-400); RBC 4.05 m/cumm (4.50-6.00); RBC Distribution Width 14.9 % (11.8-14.1); White Blood Cell Count 5.66 k/cumm (4.4-10.8)
[2018-10-23 07:16] LABS: Anion Gap 9.3 mmol/L (3-11); BUN 5 mg/dL (7-18); CO2 26.7 mmol/L (21.0-32.0); CREATININE 0.73 mg/dL (0.70-1.30); Calcium 8.4 mg/dL (8.5-10.1); Chloride 108 mmol/L (98-107); Glucose 83 mg/dL (70-100); Sodium 144 mmol/L (136-145)
[2018-10-23 07:18] LABS: Potassium 2.9 mmol/L (3.5-5.1)
[2018-10-23 07:26] LABS: Magnesium 1.8 mg/dL (1.8-2.4)
[2018-10-23 07:32] LABS: Vancomycin, Trough 44.9 ug/mL (10.0-20.0)
[2018-10-23] MEDS: carBAMazepine 200 MG TAB 400 MG PO ×2 (08:46→17:11)
[2018-10-23] MEDS: Cholecalciferol (Vitamin D3) 1,000 UNIT TAB 1000 UNITS PO (08:46)
[2018-10-23] MEDS: Simethicone 80 MG CHEW PO ×3 (08:46→17:07)
[2018-10-23] MEDS: Gabapentin 800 MG TAB PO ×3 (08:49→17:10)
[2018-10-23] MEDS: POTASSIUM CHLORIDE 20 MEQ/100 ML BAG 50 MEQ IVPB ×2 (10:28→12:22)
[2018-10-23] MEDS: Magnesium Oxide 400 MG TAB PO (12:06)
[2018-10-23] MEDS: Potassium Chloride 20 MEQ TABCR 40 MEQ PO ×2 (12:08→17:07)
[2018-10-23] MEDS: Amoxicillin 875/Clav. 125 TAB PO ×2 (12:16→20:07)
--- NOTE | 2018-10-23 12:16 | PGE_ITS ---
Date of Service Date of service: 10/23/18 Time of Service: 12:16 Assessment and Plan (1) Change in mental status: Current visit: No Status: Acute Altered mental status with increase in seizure activity, potentially on the basis of infection in patient with history of kidney stones and UTI in the past, and current evidence of pulmonary infiltrate. - Urinalysis with evidence of UTI - given concurrent hypotension and change in mental status initiated broad spectrum coverage. Culture results without growth however. - Potential evidence of infiltrate by CXR, and given altered mental status, seizures, and prior history of aspiration Pneumonia, aspiration remains a possibility. Speech consulted. - Received Vancomycin and Meropenem for 2 days. Will discontinue, initiate Augmentin, and monitor. Procalcitonin 0.1. (2) Pneumonia: Current visit: Yes Status: Acute Treatment as above. (3) UTI (urinary tract infection): Current visit: No Status: Acute Current cultures not impressive. History of Pansensitive E. Coli. (4) Focal epilepsy with impairment of consciousness, intractable: Current visit: No Status: Chronic Increase in seizure activity likely on basis of infection. - Continue Carbemazepine, change IV Keppra to oral, and discontinue EEG. Neuro also checked CT Head, with patency of shunts verified. - If clinically stable and remains at baseline, plan for continuation of current dose of Keppra for 1 week, then wean over 1 week and return to baseline Carbemazepine - per discussion with neurology. (5) DVT prophylaxis: Current visit: Yes Status: Acute SC Enoxaparin. Subjective Interval history since last seen: 33 year old man with a history of Cerebral Palsy, Seizure Disorder, and prior UTI in the setting of kidney stones, admitted from [facility] Emergency Department with a diagnosis of worsening seizures in the setting of likely Urinary Infection. Mr. Holloway has a prior Medical History significant for Cerebral Palsy with severe Developmental Delay, Hydrocephalus s/p MILITARY NURSE Shunt with prior revision, Intractable Epilepsy on AED with Carbamazepine, and reported blindness. He was hospitalized in February of 2018 with what appeared to be sepsis based on a Urinary Infection, found to have multiple kidney stones - he underwent PCN tube placement via IR at [facility], and treated for a pansensitive E.Coli infection. He has since undergone interventions with stent placement, stone evacuation, and stent removal per discussion with caregiver. He is reported to have up to 2 seizures a month, but for the last few months he has been experiencing just 1. However, he was noted to have 2 seizures the day prior to admission, followed by 2 more on the day of admission. He was brought in for further evaluation in the ED. Caregiver also reports noted increase in fatigue, and decrease oral intake over the last week or so. Work-up in the ED noted potential UTI by labs, and stable and patent MILITARY NURSE shunts by imaging. He also experienced worsening hypotension and altered mental status while in the ED. He was admitted for further evaluation and treatment. Following admission a CXR was obtained and showed a potential right sided infiltrate. His urinalysis was suspicious for a UTI, but without significant growth on Cultures. Renal ultrasound showed bilateral nephrocalcinosis, with mild bilateral hydronephrosis. Mr. Holloway has remained afebrile and without a leukocytosis. He has remains on broad spectrum antibiotics. No further seizure activity was noted, and caregiver notes patient is back to his baseline status. Remains nonverbal. No overnight events reported. Exam Narrative Exam Narrative: General: Patient appears non-toxic. Nonverbal. Neck: Supple CV: Regular, nontachycardic, S1S2, No rubs, murmurs, or gallops. Pulmonary: Clear to auscultation bilaterally, no crackles, wheezing, or rhonchi on improved exam today Abdomen: + Bowel Sounds, soft, nondistended Vascular: No lower extremity edema Objective Objective Clinical Data: Abnormal lab results 10/23/18 10/23/18 10/23/18 Range/Units 06:00 06:00 06:00 RBC 4.05 L (4.50-6.00) m/cumm Hgb 10.9 L (13.5-17.5) g/dL Hct 36.0 L (40.0-50.0) % MCH 26.9 L (27.0-33.0) pg MCHC 30.3 L (32.0-36.0) g/dL RDW 14.9 H (11.8-14.1) % Potassium 2.9 L* (3.5-5.1) mmol/L Chloride 108 H (98-107) mmol/L BUN 5 L (7-18) mg/dL Calcium 8.4 L (8.5-10.1) mg/dL Vancomycin Trough 44.9 H* (10.0-20.0) ug/mL Vital Signs Temperature 37.5 C 10/23/18 07:35 Temperature Source Temporal Artery Scan 10/23/18 07:35 Pulse 85 10/23/18 06:00 Pulse 60 10/23/18 07:50 Respiratory Rate 13 10/23/18 07:50 Respiratory Effort 10/23/18 07:35 Respiratory Depth Normal 10/23/18 07:35 Respiratory Pattern Normal 10/23/18 07:35 Blood Pressure 96/66 L 10/23/18 06:00 Blood Pressure Mean 73 10/23/18 06:00 Blood Pressure Position Supine 10/23/18 00:00 Pulse Oximetry 95 10/23/18 07:50 Oxygen Delivery Method Room Air 10/23/18 07:35 Oxygen Flow Rate 0 10/23/18 07:35 Pain Level 0 10/23/18 00:00 Intake & Output 10/22/18 10/23/18 10/23/18 23:59 11:59 23:59 Intake Total 760 / 2900 1910 / 1910 Output Total 2450 / 5325 2875 / 2875 Balance -1690 / -2425 -965 / -965 Weight 29.7 kg Intake: IV 510 / 2170 1310 / 1310 Oral 250 / 730 600 / 600 Output: Urine 2450 / 5325 2875 / 2875 Other: Urine Color Pale Pale Yellow Yellow Urine Appearance Clear Cloudy Comment pt has condom cath on, draining clear, almost colorless urine Condom catheter changed at this time. Laboratory Results WBC 5.66 k/cumm (4.4-10.8) 10/23/18 06:00 RBC 4.05 m/cumm (4.50-6.00) L 10/23/18 06:00 Hgb 10.9 g/dL (13.5-17.5) L 10/23/18 06:00 Hct 36.0 % (40.0-50.0) L 10/23/18 06:00 MCV 88.9 fL (80-95) 10/23/18 06:00 MCH 26.9 pg (27.0-33.0) L 10/23/18 06:00 MCHC 30.3 g/dL (32.0-36.0) L 10/23/18 06:00 RDW 14.9 % (11.8-14.1) H 10/23/18 06:00 Plt Count 399 x1000/uL (130-400) 10/23/18 06:00 MPV 10.0 fL (8.0-11.0) 10/23/18 06:00 Immature Gran % 0.0 10/23/18 06:00 57.6 10/23/18 06:00 25.3 10/23/18 06:00 9.5 10/23/18 06:00 7.1 10/23/18 06:00 0.5 10/23/18 06:00 Absolute Neutrophils 3.26 k/cumm (1.2-6.7) 10/23/18 06:00 Absolute Lymphocytes 1.43 k/cumm (1.2-3.4) 10/23/18 06:00 Absolute Monocytes 0.54 k/cumm (0.11-0.7) 10/23/18 06:00 Absolute Eosinophils 0.40 k/cumm (0.0-0.7) 10/23/18 06:00 Absolute Basophils 0.03 k/cumm (0.0-0.2) 10/23/18 06:00 PT 9.8 sec (9.3-11.0) 10/21/18 12:50 INR 1.0 (0.9-1.1) 10/21/18 12:50 APTT 17.8 sec (21.0-31.4) L 10/21/18 12:50 VBG pH 7.44 (7.32-7.43) H 10/21/18 12:50 VBG pCO2 43 mm/Hg (34-47) 10/21/18 12:50 VBG pO2 83 mm/Hg (28-44) H 10/21/18 12:50 VBG HCO3 29 mmol/L (22-28) H 10/21/18 12:50 VBG Total CO2 26 mmol/L (22-29) 10/21/18 12:50 VBG O2 Saturation 97 % (70-80) H 10/21/18 12:50 VBG Base Excess 4.8 mmol/L (-3-3) H 10/21/18 12:50 Sodium 144 mmol/L (136-145) 10/23/18 06:00 Potassium 2.9 mmol/L (3.5-5.1) L* 10/23/18 06:00 Chloride 108 mmol/L (98-107) H 10/23/18 06:00 Carbon Dioxide 26.7 mmol/L (21.0-32.0) 10/23/18 06:00 9.3 mmol/L (3-11) 10/23/18 06:00 BUN 5 mg/dL (7-18) L 10/23/18 06:00 0.73 mg/dL (0.70-1.30) 10/23/18 06:00 >= 60.00 (mL/min/1.73m2) 10/23/18 06:00 Glucose 83 mg/dL (70-100) 10/23/18 06:00 1.4 mmol/l (0.6-1.4) 10/21/18 19:50 Calcium 8.4 mg/dL (8.5-10.1) L 10/23/18 06:00 Magnesium 1.8 mg/dL (1.8-2.4) 10/23/18 06:00 0.1 mg/dL (0.2-1.0) L 10/21/18 12:50 AST 11 U/L (15-37) L 10/21/18 12:50 ALT 25 U/L (12-78) 10/21/18 12:50 108 U/L (46-116) 10/21/18 12:50 15 umol/L (11-32) 10/21/18 12:50 7.0 g/dL (6.4-8.2) 10/21/18 12:50 3.0 g/dL (3.4-5.0) L 10/21/18 12:50 0.1 ng/mL 10/21/18 12:50 Yellow (Yellow) 10/21/18 15:32 Clear (Clear) 10/21/18 15:32 7.5 (5-8) 10/21/18 15:32 Ur Specific [place] 1.010 (1.005-1.025) 10/21/18 15:32 Negative mg/dL (Negative) 10/21/18 15:32 Negative mg/dL (Negative) 10/21/18 15:32 Negative (Negative) 10/21/18 15:32 Negative (Negative) 10/21/18 15:32 Negative (Negative) 10/21/18 15:32 0.2 EU/dL (Up TO 0.2) 10/21/18 15:32 Ur Leukocyte Esterase Moderate (Negative) H 10/21/18 15:32 0-2 (0-2) 10/21/18 15:32 10-20 HPF (0-5) 10/21/18 15:32 Ur Epithelial Cells Negative HPF (Negative) 10/21/18 15:32 Negative HPF (Negative) 10/21/18 15:32 Rare HPF (Negative) 10/21/18 15:32 Negative LPF (Negative) 10/21/18 15:32 Negative (Negative) 10/21/18 15:32 Ur Culture Indicated? Yes 10/21/18 15:32 Negative mg/dL (Negative) 10/21/18 15:32 Vancomycin Trough 44.9 ug/mL (10.0-20.0) H* 10/23/18 06:00 Carbamazepine 5.8 ug/mL (4.0-12.0) 10/21/18 12:50
--- NOTE | 2018-10-23 14:07 | CMPROGNOTE_ITS ---
Care Management Progress Note S/O: Chilo was lying in bed, RN Chelsea and Caregiver at his bedside. No concerns expressed at this time; no change to discharge plan. CM continues to follow. A: 33 year old male admitted to [facility] 10/21/18 for Seizure, UTI P: Joshua remains ICU level of care though anticipated he will transition to MED/SURG level of care without Telemetry required. He will return home with his homeprovider and primary caregiver with no additional services anticipated at this time. CM will continue to provide support to patient, caregiver and discharge planning considerations.
--- NOTE | 2018-10-23 14:53 | CHAPLAIN ---
Chilo was resting when I visited and I spoke with his caregiver Arabella. Her daughter was also visiting. Arabella said Chilo seems to be feeling better. She talked about how when he is home, he enjoys going out to eat because he likes all the different smells in restaurants. Arabella continues to stay with Chilo, day and night. She has support from her daughters.
[2018-10-23] MEDS: Docusate Sodium 100 MG CAP PO (17:10)
[2018-10-23] MEDS: Senna TAB 1 TAB PO (17:11)
[2018-10-23] MEDS: Normal Saline Flush 10 ML SYR IVP (17:11)
[2018-10-23] MEDS: Pantoprazole 40 MG TABCR PO (17:11)
[2018-10-23] MEDS: Acetaminophen 650 MG SUPP PR (20:08)
--- NOTE | 2018-10-24 07:14 | PDOC.CMPRO ---
Care Management Progress Note S/O: Chilo was lying in bed, caregiver at his bedside. No change to discharge plan. CM continues to follow. A: 33 year old male admitted to [facility] 10/21/18 for Seizure, UTI P: Joshua remains ICU level of care though anticipated he will transition to MED/SURG level of care without Telemetry required. He will return home with his homeprovider and primary caregiver with no additional services anticipated at this time. CM will continue to provide support to patient, caregiver and discharge planning considerations.
[2018-10-24 07:31] LABS: Absolute Basophil Count 0.03 k/cumm (0.0-0.2); Absolute Eosinophil Count 0.61 k/cumm (0.0-0.7); Absolute Lymphocyte Count 1.76 k/cumm (1.2-3.4); Absolute Monocyte Count 0.75 k/cumm (0.11-0.7); Absolute Neutrophil Count 3.83 k/cumm (1.2-6.7); Basophils % 0.4; Eosinophils % 8.7; HCT 36.7 % (40.0-50.0); HGB 11.3 g/dL (13.5-17.5); Lymphocytes % 25.2; Mean Corp. HGB Concentration 30.8 g/dL (32.0-36.0); Mean Corpuscular Hemoglobin 27.4 pg (27.0-33.0); Mean Corpuscular Volume 89.1 fL (80-95); Mean Platelet Volume 10.2 fL (8.0-11.0); Monocytes % 10.7; Platelet Count 398 x1000/uL (130-400); RBC 4.12 m/cumm (4.50-6.00); RBC Distribution Width 14.9 % (11.8-14.1); White Blood Cell Count 6.98 k/cumm (4.4-10.8)
[2018-10-24 07:47] LABS: Anion Gap 10.1 mmol/L (3-11); BUN 11 mg/dL (7-18); CO2 21.9 mmol/L (21.0-32.0); CREATININE 0.78 mg/dL (0.70-1.30); Chloride 111 mmol/L (98-107); Glucose 91 mg/dL (70-100); Magnesium 2.5 mg/dL (1.8-2.4); Potassium 4.4 mmol/L (3.5-5.1); Sodium 143 mmol/L (136-145)
[2018-10-24] MEDS: levETIRAcetam 500 MG TAB 1000 MG PO (07:51)
[2018-10-24] MEDS: carBAMazepine 200 MG TAB 400 MG PO (07:51)
[2018-10-24] MEDS: Gabapentin 800 MG TAB PO (07:52)
[2018-10-24] MEDS: Amoxicillin 875/Clav. 125 TAB PO (07:52)
[2018-10-24] MEDS: Simethicone 80 MG CHEW PO (07:52)
[2018-10-24] MEDS: Cholecalciferol (Vitamin D3) 1,000 UNIT TAB 1000 UNITS PO (07:52)
[2018-10-24] MEDS: Pantoprazole 40 MG TABCR PO (07:53)
[2018-10-24] MEDS: Docusate Sodium 100 MG CAP PO (07:54)
[2018-10-24] MEDS: Senna TAB 1 TAB PO (07:58)
[2018-10-24 08:47] VITALS: TEMP 36.7
--- NOTE | 2018-10-24 11:01 | DSE_ITS ---
Date of service: 10/24/18 Time of Service: 11:02 DS: Diagnosis Discharge Diagnosis (1) Change in mental status: Status: Acute (2) Pneumonia: Status: Acute Asessment and Plan: Likely aspiration, on pureed/moderately thick diet (3) UTI (urinary tract infection): Status: Acute (4) Focal epilepsy with impairment of consciousness, intractable: Status: Chronic Discharge Plan Disposition Patient Disposition: HOME Condition: Stable Discharge Details Chief Complaint: GenMedical Clinical Impression: Seizure, Acute UTI Reason For Visit: SEIZURE, UIT Admit Date/Time: 10/21/18 16:05 Admit Provider: Zachariah Akers Attending Provider: Zachariah Akers Primary Care Provider: Pascual Johnson ED Provider: Leoncio Sandoval Hospital Course Hospital Course: Mr Holloway is a 33 year old male with PMHx of cerebral palsy, developmental delay, who is nonverbal, as well as history of dysphagia, nephrolithiasis with prior sepsis due to urinary source, and seizure disorder, admitted to [facility] ICU on 10/21/18 with encephalopathy, increased seizure frequency, and suspicion for UTI. He was also more hypotensive than his normal. He was initiated on IV keppra in addition to his home carbamazepine and gabapentin. He was being empirically treated with vancomycin/meropenem for a UTI, but urine C&S came back negative. He did appear to have a RLL pneumonia, that based on the location as well as recent recurrent of seizures, was likely due to aspiration. The patient responded well to empiric antibiotics, in addition to keppra. Patient's mental status had returned to his baseline. His PO intake has significantly improved. He tolerated switch to PO augmentin with continued clinical improvement. He will complete 3 more days of augmentin (a 7 day total course of antibiotics) upon discharge. Neurology recommendations were sought for instructions as to how to proceed with keppra management - a recommendation was made to continue current dose of keppra for 1 week, then taper it off over the next week, then stop. It is thought that the seizures had recurred/become more frequent due to acute illness. Carbamazepine and neurontin are to be continued. The patient is medically stable for discharge home today with home caregivers. He is to follow up with PCP and neurology in 1-2 weeks. 40 minutes were spent on care for patient as well as completion of discharge summary on the patient on day of discharge. Home Meds and New Rx's Prescriptions: New levetiracetam [Keppra] 500 mg Tablet See Rx Instructions .ROUTE .COMPLEX Qty: 27 RF: 0 amoxicillin-pot clavulanate 875-125 mg Tablet 1 tab PO BID Qty: 7 RF: 0 Continued multivitamin [Daily Multi-Vitamin] tablet 1 tab PO DAILY Qty: 100 RF: 4 gabapentin 800 mg tablet 800 mg PO TID Qty: 270 RF: 3 simethicone 80 mg tablet,chewable 80 mg PO AC Qty: 100 RF: 11 carbamazepine [Tegretol XR] 400 mg tablet extended release 12 hr 400 mg PO BID Qty: 200 RF: 4 ascorbic acid (vitamin C) 1,000 mg tablet 1 gm PO DAILY RF: 0 Ferretts 325 mg (106 mg iron) tablet 325 mg PO DAILY RF: 0 clonazepam 0.5 mg tablet,disintegrating 0.5 mg PO ONCE PRN (Reason: seizures) Qty: 20 RF: 3 Pediatric Balanced Nutrition 237 ML liquid 1 bottle PO BID Qty: 60 RF: 11 docusate sodium 100 mg capsule 100 mg PO BID Qty: 180 RF: 3 polyethylene glycol 3350 17 gram powder in packet 17 gm PO DAILY PRN (Reason: constipation) Qty: 90 RF: 3 sennosides [senna] 8.6 mg tablet 8.6 mg PO DAILY PRN (Reason: constipation) Qty: 90 RF: 1 pantoprazole 40 mg tablet,delayed release (DR/EC) 40 mg PO BID Qty: 180 RF: 3 cholecalciferol (vitamin D3) 1,000 unit tablet 1,000 unit PO DAILY Qty: 100 RF: 4 Vitamin B-6 50 mg capsule 50 mg PO DAILY Qty: 90 RF: 3 acetaminophen 650 mg suppository 650 mg MD Q4H PRN MDD 3000 mg Qty: 90 RF: 2 epinephrine 0.3 mg/0.3 mL auto-injector 0.3 mg IM ONCE Qty: 2 RF: 1 nystatin 15 GM powder 1 gm PRN PRNRF: 0 Perla Protect 142 GM cream 1 gm PRN PRNRF: 0 Discharge Instructions Instructions: Amoxicillin/Clavulanate Potassium (By mouth), Levetiracetam (By mouth) Additional Instructions: Finish antibiotics and keppra taper as prescribed. Contact your PCP and/or return to the hospital with any fever, mental status changes, recurrence of seizures, bleeding, shortness of breath. Follow up with PCP and neurology in 1-2 weeks. Referrals: Pascual Johnson [Primary Care Provider] - Cydney Harris MD [ [facility] STAFF PHYSICIAN] - Activity:: Activity as Tolerated Equipment/Supplies:: No Equipment Needed Diet:: As Tolerated Discharge Orders Discharge Orders: Discharge Order (Routine); Ordered 10/24/18 Ordered By: Shelby Malik Exam Narrative Exam Narrative: General: Contracted, nonverbal male, who appears to be quite comfortable in a wheel chair, rocking HEENT: eyes closed, MMM Heart: RRR, mildly tachycardic Lungs: Diminished, but clear to auscultation B GI: abdomen is soft, nondistended Extremities: contracted; ?very trace edema BLE's DS: Data Vitals/I&O Vitals and I&O: Vital Signs Temperature 36.7 C 10/24/18 08:47 Temperature Source Temporal Artery Scan 10/24/18 08:47 Pulse 74 10/23/18 23:39 Pulse Rhythm Regular 10/24/18 08:03 Pulse 102 H 10/23/18 16:10 Respiratory Rate 19 10/23/18 16:10 Respiratory Effort Non-Labored 10/24/18 08:03 Respiratory Depth Normal 10/24/18 08:03 Respiratory Pattern Normal 10/24/18 08:03 Blood Pressure 96/56 L 10/23/18 23:39 Blood Pressure Mean 66 10/23/18 23:39 Blood Pressure Position Supine 10/23/18 00:00 Pulse Oximetry 99 10/23/18 20:13 Oxygen Delivery Method Room Air 10/24/18 08:47 Oxygen Flow Rate 0 10/24/18 08:47 Pain Level 0 10/23/18 00:00 Intake & Output 10/23/18 10/23/18 10/24/18 11:59 23:59 11:59 Intake Total 1910 / 4080 2170 / 4080 32 / 32 Output Total 2875 / 4375 1500 / 4375 Balance -965 / -295 670 / -295 32 / 32 Weight 29.7 kg 26.5 kg Intake: IV 1310 / 1680 370 / 1680 Oral 600 / 2400 1800 / 2400 32 / 32 Output: Urine 2875 / 4375 1500 / 4375 Other: Urine Color Pale Yellow Yellow Urine Appearance Cloudy Sediment Urine Odor Strong Comment Condom catheter changed at this time. Pt does not have on and is using his brief per prior RN who lives with his and his caregiver. The MDs were no longer needing an catheter on him per prior RN even though order is still active Patient incontinent, changed diaper and incontinent care provided by caregiver at this time. Completed studies during hospitalization [Text1]: CT head 10/21/18: Stable appearance of ventricular peritoneal shunts and stable chronic areas of encephalomalacia. CXR 10/21/18: Possible right sided pneumonia, repeat chest films recommended for further evaluation. Labs on day of discharge: Labs from last 24 hours 10/24/18 10/24/18 06:10 06:10 WBC 6.98 RBC 4.12 L Hgb 11.3 L Hct 36.7 L MCV 89.1 MCH 27.4 MCHC 30.8 L RDW 14.9 H Plt Count 398 MPV 10.2 Immature Gran % 0.0 Neutrophils % 55.0 Lymphocytes % 25.2 Monocytes % 10.7 Eosinophils % 8.7 Basophils % 0.4 Absolute Neutrophils 3.83 Absolute Lymphocytes 1.76 Absolute Monocytes 0.75 H Absolute Eosinophils 0.61 Absolute Basophils 0.03 Sodium 143 Potassium 4.4 D Chloride 111 H Carbon Dioxide 21.9 Anion Gap 10.1 BUN 11 D Creatinine 0.78 Estimated GFR/1.73 m2 >= 60.00 Glucose 91 Calcium 9.0 Magnesium 2.5 H Preliminary micro results at discharge 10/21/18 19:50 Blood Culture - Preliminary Blood NO GROWTH 48 HOURS 10/21/18 20:00 Blood Culture - Preliminary Blood NO GROWTH 48 HOURS [facility] Medical History Anemia (Resolved) Anemia, chronic disease (Chronic 09/18/16) Aspiration pneumonia (Acute) 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) Blindness of both eyes (Chronic) Bowel and bladder incontinence (Chronic 01/28/14) Cerebral palsy (Chronic) Epilepsy (Resolved 04/12/11) Focal epilepsy with impairment of consciousness, intractable (Chronic) GERD (gastroesophageal reflux disease) (Chronic) Hydrocephalus (Chronic 02/14/15) Hydronephrosis (Acute ~02/2018) Hypernatremia (Resolved) Hypokalemia (Resolved) Idiopathic scoliosis (Chronic) Mental retardation (Chronic) Pneumonia (Resolved) Right nephrolithiasis (Acute) Seizure disorder (Resolved) Swallowing impaired (Chronic) Vitamin D deficiency (Chronic) Surgical History [employer] [employer] H/O nephrostomy (Acute) History of lung surgery (Acute) S/P ureteral stent placement (Acute ~06/28/18) SHUNT Family History Mother Cancer Father No problems noted. Sister Neoplasm Maternal Grandfather Cancer Maternal Grandmother Cancer Brother No problems noted. Social History Smoking/Tobacco Use Status: Never Alcohol Intake: never Drug use: Never Substance use type: does not use Caregiver/Support person: Yes Household members: caregiver Housing: house Number of Children: 0 Pets and animals: Yes Pets and animals: dog(s) Frequency: does not exercise Latonya/Sabianism: None Special latonya needs: No Seatbelt use: always
--- NOTE | 2018-10-24 13:23 | PDOC.CMDIS ---
LACE Index Scoring Tool - Questions: Length of Stay (in days): 3 Acuity (Admit via E.D.?): Yes E.D. Visits: 3 - Answers: Total Score: 9 Risk of Readmission: Low Risk Care Management Discharge Reason for Hospitalization: Seizure Discharge Plan: Joshua will return home with his homeprovider and primary caregiver with no additional services anticipated at this time. He will follow up with his community based providers and transport via private vehicle with his caregiver. Patient/Family Education Needs: Review of discharge instructions, discuss Ask Me Three.
== END 2018-10-24 12:20 | disposition home or self-care (01) | DRG 947 ==
LOC: ER 16:19 → ICU 19:05
PROVIDERS: Internal Medicine; Admitting Provider Internal Medicine; Emergency Provider Student in an Organized Health Care Education/Training Program; PCP Family Medicine; Visit Provider Internal Medicine
DX: R41.82 Altered mental status, unspecified (principal); J18.9 Pneumonia, unspecified organism; N39.0 Urinary tract infection, site not specified; G40.119 Localization-related (focal) (partial) symptomatic epilepsy and epileptic syndromes with simple partial seizures, intractable, without status epilepticus; R47.01 Aphasia; G80.9 Cerebral palsy, unspecified; I95.9 Hypotension, unspecified; Z98.2 Presence of cerebrospinal fluid drainage device; Z87.440 Personal history of urinary (tract) infections; Z87.442 Personal history of urinary calculi
CPT/HCPCS: 36415; 36416; 76770; 80048; 80053; 82805; 82962; 84145; 87040; 96361; 96365; 99222; 99232; 99239; 99285; J1650; 70360; 70450; 71045; 72050; 74018; 80156; 80202; 81003; 81015; 82140; 83605; 83735; 85025; 85610; 85730; 87086; 99284; J0696; J1953; J3480

== ENCOUNTER 2018-11-29 23:03 | Emergency (ER) | payer MEDICAID, SELFPAY ==
--- NOTE | 2018-11-29 00:25 | DI.RAD_ITS ---
SYMPTOM/DIAGNOSIS: SEIZURE, SUSPECTED ASPIRATION PNEUMONIA AP AND LATERAL CHEST: The lungs are well expanded and free of infiltrate. There is no evidence of a pneumothorax or pleural effusion. The heart is within normal limits. There is no bony abnormality seen. IMPRESSION: No acute cardiopulmonary disease.
[2018-11-29 23:06] VITALS: BP 120/48; PULSE 133; RESP 18; TEMP 37.1; O2SAT 99
--- NOTE | 2018-11-29 23:16 | NUR.NOTE ---
Nursing Note: Seizure hx today 20:20 45 second seizure 20:33 second seizure 50 seconds 21:40 55 second seizure --> possibly aspirated
--- NOTE | 2018-11-29 23:33 | ED.GENADUL_ITS ---
Discharge Plan Disposition Patient Disposition: HOME Condition: Good Discharge Details Chief Complaint: Seizure Clinical Impression: Acute UTI, Aspiration into airway, Seizure, Acute dehydration Primary Care Provider: Pascual Johnson ED Provider: Leoncio Sandoval Home Meds and New Rx's Prescriptions: New amoxicillin-pot clavulanate [Augmentin] 875-125 mg tablet 1 tab PO BID 10 Days Qty: 20 RF: 0 levofloxacin [Levaquin] 750 mg tablet 750 mg PO DAILY 10 Days Qty: 10 RF: 0 Continued gabapentin 800 mg tablet 800 mg PO TID Qty: 270 RF: 3 simethicone 80 mg tablet,chewable 80 mg PO AC Qty: 100 RF: 11 carbamazepine [Tegretol XR] 400 mg tablet extended release 12 hr 400 mg PO BID Qty: 200 RF: 4 clonazepam 0.5 mg tablet,disintegrating 0.5 mg PO ONCE PRN (Reason: seizures) Qty: 20 RF: 3 Desitin 13 % cream 1 applic TP BID-QID PRN (Reason: skin irritation) Qty: 454 RF: 1 docusate sodium 100 mg capsule 100 mg PO BID Qty: 180 RF: 3 sennosides [senna] 8.6 mg tablet 8.6 mg PO DAILY PRN (Reason: constipation) Qty: 90 RF: 3 polyethylene glycol 3350 17 gram powder in packet 17 gm PO DAILY PRN (Reason: constipation) Qty: 90 RF: 3 pantoprazole 40 mg tablet,delayed release (DR/EC) 40 mg PO BID Qty: 180 RF: 3 Vitamin B-6 50 mg capsule 50 mg PO DAILY Qty: 90 RF: 3 epinephrine 0.3 mg/0.3 mL auto-injector 0.3 mg IM ONCE Qty: 2 RF: 1 acetaminophen 650 mg suppository 650 mg [place] Q4H PRN MDD 3000 mg Qty: 90 RF: 2 Pediatric Balanced Nutrition 0.03-1 gram-kcal/mL liquid 1 ml PO BID PRNQty: 60 RF: 11 bisacodyl 10 mg suppository 10 mg [place] DAILY PRN (Reason: constipation) Qty: 12 RF: 2 nystatin 15 GM powder 1 gm PRN PRNRF: 0 Perla Protect 142 GM cream 1 gm PRN PRNRF: 0 Discharge Instructions Instructions: Urinary Tract Infection in Men (ED), Aspiration Pneumonia (GEN) Additional Instructions: At this time Joshua appears stable for home. As we have discussed together the option for admission always remains. If you notice any return or worsening of his symptoms whatsoever please return immediately for reassessment. Please continue the antibiotic as directed. Make sure he is drinking plenty of fluids. Please come back on Friday morning to have his blood redrawn to make sure his kidney function is improving and his white count is going down. If you notice any worsening of your symptoms, or any new symptoms such as vomiting, diarrhea, repeat seizure, fever, chills, shortness of breath, chest pain, numbness, weakness, or fainting , please return immediately to the emergency department for reevaluation. Please follow up with your primary care provider as soon as possible for reassessment and reevaluation. As always, it was a pleasure participating in your medical care today. Referrals: Pascual Johnson [Primary Care Provider] - Discharge Data Discharge Date/Time-TO BE ENTERED AT DEPARTURE: 11/30/18 02:45 Medical Decision Making This is a 32-year-old male with a past medical history of cerebral palsy, brain hemorrhage as a baby, severe developmental delay, ALTERNATIVE DISPUTE RESOLUTION MEDIATOR shunt, chronic blindness, chronic seizures on Neurontin and carbamazepine, as well as clonazepam as needed, additionally he has also had notable renal/kidney stone problems with multiples procedures greater than a month ago. Additionally he had a urinary tract infection this past October, for which she was temporarily admitted for and then eventually discharged. He had increased episodes of seizures during that episode. He presents again today for seizures. He has had 3 seizures today which is not overly atypical. It is more common when he has an infectious etiology. The patient's caregiver does have 2 points of concern though, first during his second seizure he had an episode of vomiting and then inhaled, and she is concern for aspiration pneumonia versus pneumonitis. Additionally with the third episode of seizure she is concerned that perhaps he may have urinary tract infection which is the common source of his symptoms. The caregiver is an ICU nurse, and since being at home the patient has maintained good oxygen saturations, he has been slightly more tachycardic than normal but does have a baseline of relative tachycardia. He has been afebrile. Also of note his blood pressure commonly is notably on the low side in the 70s and 80s. No other complaints modifying factors at this time. Caregiver states that compared to his previous episodes of illness he does not appear overly ill to her at this time. Physical exam demonstrates no evidence of hypoxemia or significant respiratory distress. Minimal questionable crackle in the right l ower lung walls. Bedside limited portable ultrasound does demonstrate some B- lines on the right, but the left is otherwise unremarkable. No evidence of nuchal rigidity, no signs of meningismus. Differential at this time does include mild aspiration pneumonia versus pneumonitis, potential UTI as the cause of his increase in seizures. We will gently rehydrate the patient, check for infectious etiologies. Currently at this time both myself was seen the patient few times before and to the patient's caregiver he shows no clinical evidence of significant altered mental status, or signs or symptoms concerning for shunt abnormality or meningitis. 1:33 AM Chest x-ray per virtual radiology is negative for acute process or significant pneumonia or pneumonitis. Laboratory work-up does show an elevated white count, and a mild left shift. No bandemia. Electrolytes are normal, creatinine is elevated at 1.42 which is atypical for the patient, GFR is 56. Glucose stable. Urinalysis shows evidence of urinary tract infection. Review of previous cultures demonstrates gram-positive organisms on more recent urine cultures, and pansensitive E. coli on previous episodes of UTI. Here in the ED the patient has had had a notable normalization of his vital signs. Blood pressure is at his normal baseline in the 100s. Heart rate is now in the 70s. He remains afebrile, he is resting comfortably, he shows no signs of lethargy. He has had no repeat seizures here. He is received a full dose of Unasyn. I had a very long discussion with the caregiver who is at bedside. She is both medical professional and very well informed has an excellent grasp with the patient's medical standings. I discussed the increased renal function/dysfunction, as well as a white count, benign x-ray. Discussed my concerns for a mild acute kidney injury which may be secondary to his seizures and mild dehydration. He does not appear to be on any overtly nephrotoxic drugs. I discussed his white count, concern for aspiration pneumonitis and recommendation for continued prophylaxis with antibiotics for aspiration pneumonia. We had a long discussion regarding admission versus discharge. Through a notable shared decision making, being well informed of the risks, benefits, including worsening of the patient's symptomatology, and at the worst or disability, through shared decision making process it is been agreed that the patient will be discharged home. Caregiver feels that hospitalization at this time would be incongruent with both his needs of his current state, and would put him at risk with the other sick people here in the hospital. Respecting their wishes, I do feel that if you things are indicated. I have given a slip for outpatient labs to be redrawn Friday which is less than 36 hours away. Will reevaluate renal function and white count at that time. Prompt follow-up with PCP is also certainly required. We will continue Augmentin on an outpatient basis, and add Levaquin for adequate gram-negative coverage for UTI. After completion of his fluid bolus here, and on reassessment he continued to demonstrate stable vital signs and reassuring clinical appearance patient will be discharged home. Had a long discussion with the family regarding red flags for which to immediately return, as well as signs and symptoms for which to be concerned about. I have e xtensively reviewed the treatment plan and discharge instructions with the family. I have addressed all patient concerns at this time. The family was made aware of what symptoms to monitor for that would warrant a return to the emergency department. Discussed the plan with the family, they demonstrate verbal understanding and agreement with our assessment and plan at this time. FINDINGS: Lungs: Unremarkable. No consolidation. Pleural space: Unremarkable. No evidence of pneumothorax. Heart/Mediastinum: Unremarkable. Heart size within normal limits for technique. Bones/joints: Unremarkable. IMPRESSION: No acute findings. Thank you for allowing us to participate in the care of your patient. Dictated and Authenticated by: Rickie Khoury MD [facility] General Date/Time Provider Initiated Documentation: 11/29/18 23:13 . HPI Narrative: This is a 32-year-old male with a past medical history of cerebral palsy, brain hemorrhage as a baby, severe developmental delay, ALTERNATIVE DISPUTE RESOLUTION MEDIATOR shunt, chronic blindness, chronic seizures on Neurontin and carbamazepine, as well as clonazepam as needed, additionally he has also had notable renal/kidney stone problems with multiples procedures greater than a month ago. Additionally he had a urinary tract infection this past October, for which she was temporarily admitted for and then eventually discharged. He had increased episodes of seizures during that episode. He presents again today for seizures. He has had 3 seizures today which is not overly atypical. It is more common when he has an infectious etiology. The patient's caregiver does have 2 points of concern though, first during his second seizure he had an episode of vomiting and then inhaled, and she is concern for aspiration pneumonia versus pneumonitis. Additionally with the third episode of seizure she is concerned that perhaps he may have urinary tract infection which is the common source of his symptoms. The caregiver is an ICU nurse, and since being at home the patient has maintained good oxygen saturations, he has been slightly more tachycardic than normal but does have a baseline of relative tachycardia. He has been afebrile. Also of note his blood pressure commonly is notably on the low side in the 70s and 80s. No other complaints modifying factors at this time. Caregiver states that compared to his previous episodes of illness he does not appear overly ill to her at this time. No other complaints at this time. No other modifying factors. Related Data Home Medications Medication Instructions Recorded Confirmed Perla Protect 1 gm PRN PRN 05/31/17 10/21/18 nystatin 1 gm PRN PRN 05/31/17 10/21/18 polyethylene glycol 3350 17 gram 17 gm PO DAILY PRN #90 each 12/26/17 10/21/18 oral powder packet Tegretol XR 400 mg tablet,extended 400 mg PO BID #200 tab-cap NS 02/24/18 10/21/18 release gabapentin 800 mg tablet 800 mg PO TID #270 tab 02/24/18 10/21/18 simethicone 80 mg chewable tablet 80 mg PO AC #100 tab.chew 02/24/18 10/21/18 pantoprazole 40 mg tablet,delayed 40 mg PO BID #180 tab-cap 04/24/18 10/21/18 release clonazepam 0.5 mg disintegrating 0.5 mg PO ONCE PRN #20 tab 06/16/18 10/21/18 tablet pyridoxine (vitamin B6) 50 mg 50 mg PO DAILY #90 cap 06/19/18 10/21/18 capsule epinephrine 0.3 mg/0.3 mL 0.3 mg IM ONCE #2 pen 07/17/18 10/21/18 injection, auto-injector acetaminophen 650 mg rectal 650 mg [place] Q4H PRN #90 supp MDD 10/26/18 suppository 3000 mg docusate sodium 100 mg capsule 100 mg PO BID #180 cap 11/06/18 11/06/18 pedi nutrition,iron,lact-free 0.03 1 ml PO BID PRN #60 ml 11/06/18 gram-1 kcal/mL oral liquid sennosides 8.6 mg tablet 8.6 mg PO DAILY PRN #90 tab 11/06/18 11/06/18 zinc oxide 13 % topical cream 1 applic TP BID-QID PRN #454 gm 11/06/18 11/06/18 bisacodyl 10 mg rectal suppository 10 mg [place] DAILY PRN #12 each 11/24/18 amoxicillin-pot clavulanate 1 tab PO BID 10 Days #20 tab 11/30/18 [Augmentin] levofloxacin [Levaquin] 750 mg PO DAILY 10 Days #10 tab 11/30/18 Previous Rx's Medication Instructions Recorded polyethylene glycol 3350 17 gram 17 gm PO DAILY PRN #90 each 12/26/17 oral powder packet Tegretol XR 400 mg tablet,extended 400 mg PO BID #200 tab-cap NS 02/24/18 release gabapentin 800 mg tablet 800 mg PO TID #270 tab 02/24/18 simethicone 80 mg chewable tablet 80 mg PO AC #100 tab.chew 02/24/18 pantoprazole 40 mg tablet,delayed 40 mg PO BID #180 tab-cap 04/24/18 release clonazepam 0.5 mg disintegrating 0.5 mg PO ONCE PRN #20 tab 06/16/18 tablet pyridoxine (vitamin B6) 50 mg 50 mg PO DAILY #90 cap 06/19/18 capsule epinephrine 0.3 mg/0.3 mL 0.3 mg IM ONCE #2 pen 07/17/18 injection, auto-injector acetaminophen 650 mg rectal 650 mg [place] Q4H PRN #90 supp MDD 10/26/18 suppository 3000 mg docusate sodium 100 mg capsule 100 mg PO BID #180 cap 11/06/18 sennosides 8.6 mg tablet 8.6 mg PO DAILY PRN #90 tab 11/06/18 zinc oxide 13 % topical cream 1 applic TP BID-QID PRN #454 gm 11/06/18 bisacodyl 10 mg rectal suppository 10 mg [place] DAILY PRN #12 each 11/24/18 amoxicillin-pot clavulanate 1 tab PO BID 10 Days #20 tab 11/30/18 [Augmentin] levofloxacin [Levaquin] 750 mg PO DAILY 10 Days #10 tab 11/30/18 Allergies Allergy/AdvReac Type Severity Reaction Status Date / Time latex Allergy Severe ANAPHYLAXIS Unverified 11/06/18 13:07 venom-honey bee Allergy Unknown Unverified 11/06/18 13:07 General Stated Complaint: Seizure JUANJO: 3 Review of Systems Review of Systems ROS Unobtainable: All systems reviewed & are unremarkable except as noted in HPI and below PFSH Social History Smoking/Tobacco Use Status: Never Alcohol Intake: never Drug use: Never Substance use type: does not use Caregiver/Support person: Yes Household members: caregiver Housing: house Number of Children: 0 Pets and animals: Yes Pets and animals: dog(s) Frequency: does not exercise Latonya/Shinto: None Special latonya needs: No Seatbelt use: always Do you feel safe at home: Yes Do you feel safe in your relationship?: Yes Exam Narrative Exam Narrative: Exam Narrative: 1.Const: Thin, cachectic, at baseline 2.Eyes: Notable chronic opacification of his eyes bilaterally. Pupils are not visualized. 3.ENT: Atraumatic external nose and ears. Moist MM. Neck: Symmetric, trachea midline, No thyromegaly. 4.CVS: +S1/S2, No murmurs or gallops. Peripheral pulses 2+ and equal in all extremities. Brisk capillary refill in all extremities. 5.RESP: Unlabored respiratory effort. Questionable crackles in the right base. No wheezes rhonchi. No significant respiratory distress. 6.GI: Soft, Nontender/Nondistended, No hepatosplenomegaly. No guarding or rebound. 7.MSK: Normocephalic/Atraumatic, Extremities w/o deformity or ttp . All extremities are retracted which is at his normal pace, however he is actively moving all extremities throughout. 8.Skin: Warm, Dry. No rashes or lesions. 9.Neuro: Neuro exam is limited secondary to patient's mental baseline, and chronic medical problems. He does respond mildly to commands. He does seem to move all extremities. Exam there appears to be no nuchal rigidity or meningismus. Course Vital Signs Vital signs: Vital Signs Temperature 37.1 C 11/29/18 23:06 Pulse 133 H 11/29/18 23:06 Respiratory Rate 18 11/29/18 23:06 Blood Pressure 120/48 L 11/29/18 23:06 Pulse Oximetry 99 11/29/18 23:06 Temperature 37.1 C 11/29/18 23:06 Temperature Source Skin 11/29/18 23:06 Pulse 133 H 11/29/18 23:06 Respiratory Rate 18 11/29/18 23:06 Respiratory Effort Non-Labored 11/29/18 23:26 Respiratory Depth Normal 11/29/18 23:14 Respiratory Pattern Normal 11/29/18 23:14 Blood Pressure 120/48 L 11/29/18 23:06 Blood Pressure Position Supine 11/29/18 23:06 Pulse Oximetry 99 11/29/18 23:06 Oxygen Delivery Method Room Air 11/29/18 23:06 Oxygen Flow Rate 0 11/29/18 23:06
[2018-11-29 23:51] LABS: Abs Immature Grans 0.06 k/cumm (0.0-0.09); Absolute Basophil Count 0.02 k/cumm (0.0-0.2); Basophils % 0.1; Eosinophils % 0.1; HCT 38.6 % (40.0-50.0); HGB 12.4 g/dL (13.5-17.5); Immature Grans % 0.4; Lymphocytes % 4.2; Mean Corp. HGB Concentration 32.1 g/dL (32.0-36.0); Mean Corpuscular Hemoglobin 26.2 pg (27.0-33.0); Mean Corpuscular Volume 81.6 fL (80-95); Mean Platelet Volume 9.9 fL (8.0-11.0); Monocytes % 6.3; Neutrophils % 88.9; Platelet Count 458 x1000/uL (130-400); RBC 4.73 m/cumm (4.50-6.00); RBC Distribution Width 14.7 % (11.8-14.1); White Blood Cell Count 16.25 k/cumm (4.4-10.8)
[2018-11-29 23:53] LABS: Absolute Eosinophil Count 0.02 k/cumm (0.0-0.7); Absolute Lymphocyte Count 0.68 k/cumm (1.2-3.4); Absolute Monocyte Count 1.02 k/cumm (0.11-0.7); Absolute Neutrophil Count 14.45 k/cumm (1.2-6.7)
[2018-11-30] VITALS (26 sets, daily range): BP systolic 90–109; BP diastolic 56–74; PULSE 75–109; RESP 18; O2SAT 91–100
[2018-11-30 00:04] LABS: Bilirubin Negative (Negative); Blood Negative (Negative); Clarity Clear (Clear); Glucose Negative (Negative); Ketones Negative (Negative); Leukocyte Esterase Small (Negative); Nitrite Negative (Negative); Specific Gravity 1.015 (1.005-1.025); Urobilinogen 0.2 EU/dL (Up TO 0.2); pH 6.5 (5-8)
[2018-11-30 00:08] LABS: Bacteria Negative HPF (Negative); C & S Indicated? Yes; Casts Negative LPF (Negative); Crystals Negative HPF (Negative); Epithelial Cells Negative HPF (Negative); Mucus Negative (Negative); Other Cells Negative (Negative); RBC Negative (0-2)
[2018-11-30] MEDS: Normal Saline 1,000 ML 1000 ML IV (00:08)
[2018-11-30] MEDS: AMPICILLIN/SULBACTAM 3 GM in Normal Saline 100 ML IVPB (00:08)
--- NOTE | 2018-11-30 00:27 | DI.VRAD_ITS ---
EXAM: XR Chest, 2 Views EXAM DATE/TIME: 11/29/2018 11:29 PM CLINICAL HISTORY: 33 years old, male; Other: Seizure, suspected aspiration pneumonia TECHNIQUE: Imaging protocol: XR of the chest Views: 2 views. COMPARISON: SC XR PORTABLE CHEST AP 10/21/2018 7:24 PM FINDINGS: Lungs: Unremarkable. No consolidation. Pleural space: Unremarkable. No evidence of pneumothorax. Heart/Mediastinum: Unremarkable. Heart size within normal limits for technique. Bones/joints: Unremarkable. IMPRESSION: No acute findings. Dictated and Authenticated by: Rickie Khoury MD. Ordering:TERRIE Fang MD
[2018-11-30 00:52] LABS: ALT 26 U/L (16-63); AST 16 U/L (15-37); Albumin 3.3 g/dL (3.4-5.0); Alkaline Phosphatase 111 U/L (46-116); Anion Gap 10.6 mmol/L (3-11); BUN 27 mg/dL (7-18); Bilirubin, Total 0.1 mg/dL (0.2-1.0); CO2 28.4 mmol/L (21.0-32.0); CREATININE 1.42 mg/dL (0.70-1.30); Calcium 8.6 mg/dL (8.5-10.1); Chloride 100 mmol/L (98-107); Estimated GFR 56.73 (mL/min/1.73m2); Glucose 106 mg/dL (70-100); Potassium 4.1 mmol/L (3.5-5.1); Sodium 139 mmol/L (136-145); Total Protein 7.5 g/dL (6.4-8.2)
[2018-11-30] MEDS: levoFLOXacin 500 MG, levoFLOXacin 250 MG 750 MG PO (01:39)
== END 2018-11-30 02:45 | disposition home or self-care (01) ==
PROVIDERS: Emergency Provider Student in an Organized Health Care Education/Training Program; PCP Family Medicine
DX: N39.0 Urinary tract infection, site not specified (principal); G40.89 Other seizures; J69.0 Pneumonitis due to inhalation of food and vomit; E86.0 Dehydration; Z87.440 Personal history of urinary (tract) infections
CPT/HCPCS: 36415; 80053; 96361; 96365; 99284; 71046; 81003; 81015; 85025; 87086; J0295

== ENCOUNTER 2018-12-01 16:51 | Outpatient (CLI) | payer MEDICAID, SELFPAY ==
[2018-12-01 18:04] LABS: Abs Immature Grans 0.04 k/cumm (0.0-0.09); Absolute Basophil Count 0.03 k/cumm (0.0-0.2); Absolute Eosinophil Count 0.14 k/cumm (0.0-0.7); Absolute Lymphocyte Count 2.17 k/cumm (1.2-3.4); Absolute Monocyte Count 0.72 k/cumm (0.11-0.7); Absolute Neutrophil Count 5.71 k/cumm (1.2-6.7); Basophils % 0.3; Eosinophils % 1.6; HCT 37.1 % (40.0-50.0); HGB 11.4 g/dL (13.5-17.5); Immature Grans % 0.5; Lymphocytes % 24.6; Mean Corp. HGB Concentration 30.7 g/dL (32.0-36.0); Mean Corpuscular Hemoglobin 25.6 pg (27.0-33.0); Mean Corpuscular Volume 83.4 fL (80-95); Mean Platelet Volume 10.1 fL (8.0-11.0); Monocytes % 8.2; Neutrophils % 64.8; Platelet Count 398 x1000/uL (130-400); RBC 4.45 m/cumm (4.50-6.00); RBC Distribution Width 14.9 % (11.8-14.1); White Blood Cell Count 8.81 k/cumm (4.4-10.8)
[2018-12-01 18:24] LABS: Anion Gap 10.5 mmol/L (3-11); BUN 14 mg/dL (7-18); CO2 26.5 mmol/L (21.0-32.0); CREATININE 0.91 mg/dL (0.70-1.30); Calcium 8.4 mg/dL (8.5-10.1); Chloride 104 mmol/L (98-107); Glucose 89 mg/dL (70-100); Sodium 141 mmol/L (136-145)
== END 2018-12-01 17:11 ==
PROVIDERS: PCP Family Medicine; Visit Provider Student in an Organized Health Care Education/Training Program
DX: N39.0 Urinary tract infection, site not specified (principal); N17.9 Acute kidney failure, unspecified
CPT/HCPCS: 36415; 80048; 85025

== ENCOUNTER 2019-01-21 21:47 | Inpatient (IN) | payer MEDICAID, SELFPAY ==
[2019-01-21 21:51] VITALS: BP 130/74; PULSE 137; RESP 16; TEMP 37.1; O2SAT 96
--- NOTE | 2019-01-21 22:10 | W.ED.GENAD ---
Discharge Plan Disposition Patient Disposition: [facility] INPATIENT Condition: Good Discharge Details Chief Complaint: Seizure Clinical Impression: Acute anemia, Seizure, Acute GI bleeding, Acute hypokalemia Primary Care Provider: Pascual Johnson ED Provider: Leoncio Sandoval Home Meds and New Rx's Prescriptions: No Action clonazepam 0.5 mg tablet,disintegrating 0.5 mg PO ONCE PRN (Reason: seizures) Qty: 20 RF: 3 Desitin 13 % cream 1 applic TP BID-QID PRN (Reason: skin irritation) Qty: 454 RF: 1 sennosides [senna] 8.6 mg tablet 8.6 mg PO DAILY PRN (Reason: constipation) Qty: 90 RF: 3 gabapentin 800 mg tablet 800 mg PO TID Qty: 270 RF: 3 simethicone 80 mg tablet,chewable 80 mg PO AC Qty: 100 RF: 11 polyethylene glycol 3350 17 gram powder in packet 17 gm PO DAILY PRN (Reason: constipation) Qty: 90 RF: 3 carbamazepine [Tegretol XR] 400 mg tablet extended release 12 hr 400 mg PO BID Qty: 200 RF: 4 pantoprazole 40 mg tablet,delayed release (DR/EC) 40 mg PO BID Qty: 180 RF: 3 Vitamin B-6 50 mg capsule 50 mg PO DAILY Qty: 90 RF: 3 epinephrine 0.3 mg/0.3 mL auto-injector 0.3 mg IM ONCE Qty: 2 RF: 1 acetaminophen 650 mg suppository 650 mg AR Q4H PRN MDD 3000 mg Qty: 90 RF: 2 Pediatric Balanced Nutrition 0.03-1 gram-kcal/mL liquid 1 ml PO BID PRNQty: 60 RF: 11 bisacodyl 10 mg suppository 10 mg AR DAILY PRN (Reason: constipation) Qty: 12 RF: 2 sennosides [Senna Laxative] 8.6 mg tablet 8.6 mg PO BID Qty: 180 RF: 3 docusate sodium 100 mg capsule 100 - 200 mg PO TID Qty: 360 RF: 3 Lactobacillus acidophilus 100 million cell capsule 100 mmu cells PO TID PRN (Reason: diarrhea) Qty: 120 RF: 0 nystatin 15 GM powder 1 gm PRN PRNRF: 0 Perla Protect 142 GM cream 1 gm PRN PRNRF: 0 Medical Decision Making This is a 32-year-old male with a past medical history of cerebral palsy, brain hemorrhage as a baby, severe developmental delay, 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 Additionally he had a urinary tract infection this past October, for which she was temporarily admitted for and then eventually discharged. He had increased episodes of seizures during that episode. He presents again today for seizures. He has had 3 seizures today which is not overly atypical. It is more common when he has an infectious etiology. He has had no vomiting today, and family members state that he has returned to baseline since his seizures. They do not know any lethargy, or other significant abnormalities compared to normal. However there are protocol states that if he has 3 seizures in 24 hours he needs to present for evaluation. Of note the caregiver does state that he has had few episodes of projectile vomiting over the past few weeks, however these have all been when he has been sitting upright. He has had no other associated cough. Physical exam demonstrates no significant abnormalities compared to his baseline. He is not lethargic, he appears to be interacting as normal. He is mildly tachycardic though. No evidence of significant trauma rash or lethargy. We will check his Tegretol level, gently hydrate, get an x-ray of his chest, evaluate for UTI. Signs and symptoms at this time appear clinically inconsistent with significant shunt malfunction. Not very jean paul and honest conversation with family who care for this gentleman very well, discussing additional potential treatment and evaluation options. They have no additional requests at this time. 12:16 AM Laboratory work-up is returned, patient is remained stable here in the ED during his stay. Laboratory work-up demonstrates an elevated white count of 16 stiffly on the high side for the patient. Hemoglobin is also notably low at 7.8 which is a 3-1/2 point drop from his more recent hemoglobin a month ago. Renal function stable, potassium slightly low at 3.3. Urinalysis does not reflect significant urinary tract infection. Carbamazepine level normal. Because of his low hemoglobin I did perform a Hemoccult, and although his stool is brown and Hemoccult is notably positive. Suggestive of a potential mild GI bleed. X-rays are unremarkable for acute process. Patient and family have been under significant amount of stress as of late. Caregiver does state that he Hemoccult performed 1 month ago was negative. He did have an EGD done at [facility] 3 weeks ago where multiple biopsies were performed of his stomach. It is difficult to ascertain exactly how many biopsies were performed however from the report it appears that there was quite a notable amount certainly greater than 6 of the stomach area alone. I am concerned that he may be having a continued mild bleed from this. He is on pantoprazole already, but he seems that this is not adequate at this time. We will give IV bolus of both famotidine and omeprazole. We will give Carafate. I did contact the hospitalist and discussed the case with him. He agrees for admission. Patient will be admitted for serial hemoglobins, aggressive gastric ulcer management, correction of his potassium, and close following. I have extensively reviewed the treatment plan with the patient. I have addressed all patient concerns at this time. I have also discussed the plan with the admitting physician and they agree with the current assessment and plan and have agreed to assume responsibility for the patient. All parties demonstrate verbal understanding and agreement with our assessment and plan at this time. EKG 20: 05 Rate 126, intervals normal aside for slightly shortened AR interval at 108, no evidence of delta wave, no evidence of WPW., sinus tachycardia, no significant ST elevations or depressions, no T wave inversions, no Q waves. Less than 1 mm of normal repolarization elevation in V2. FINDINGS: Tubes, catheters and devices: Abdominal extent of the NUT DEHYDRATOR OPERATOR shunt is in place with the tip in the left hemiabdomen. Gastrointestinal tract: Bowel gas pattern is currently normal. Intraperitoneal space: Normal. No free air. Bones/joints: Marked scoliosis of the lumbar spine apex left. There has been resorption of the femoral heads with chronic dislocation. IMPRESSION: Bowel gas pattern is currently normal. Thank you for allowing us to participate in the care of your patient. 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 No recent fracture or dislocation is identified. Soft tissues: Unremarkable. IMPRESSION: 1. 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 2. No recent fracture or dislocation is identified. Thank you for allowing us to participate in the care of your patient. Dictated and Authenticated by: Pascual Maynard MD 01/21/2019 11:29 PM Eastern Time ([place] & [place]) FINDINGS: Tubes, catheters and devices: Abdominal extent of the NUT DEHYDRATOR OPERATOR shunt is in place with the tip in the left hemiabdomen. Gastrointestinal tract: Bowel gas pattern is currently normal. Intraperitoneal space: Normal. No free air. Bones/joints: Marked scoliosis of the lumbar spine apex left. There has been resorption of the femoral heads with chronic dislocation. IMPRESSION: Bowel gas pattern is currently normal. Thank you for allowing us to participate in the care of your patient. Dictated and Authenticated by: Pascual Maynard MD 01/21/2019 11:27 PM Eastern Time ([place] & [place]) HPI General Date/Time Provider Initiated Documentation: 01/21/19 21:50. 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 Additionally he had a urinary tract infection this past October, for which she was temporarily admitted for and then eventually discharged. He had increased episodes of seizures during that episode. He presents again today for seizures. He has had 3 seizures today which is not overly atypical. It is more common when he has an infectious etiology. He has had no vomiting today, and family members state that he has returned to baseline since his seizures. They do not know any lethargy, or other significant abnormalities compared to normal. However there are protocol states that if he has 3 seizures in 24 hours he needs to present for evaluation. Of note the caregiver does state that he has had few episodes of projectile vomiting over the past few weeks, however these have all been when he has been sitting upright. He has had no other associated cough. No other complaints. He has been taking his Tegretol for seizures as directed. No other modifying factors. Related Data Home Medications Medication Instructions Recorded Confirmed Perla Protect 1 gm PRN PRN 05/31/17 01/21/19 nystatin 1 gm PRN PRN 05/31/17 01/21/19 pantoprazole 40 mg tablet,delayed 40 mg PO BID #180 tab-cap 04/24/18 01/21/19 release clonazepam 0.5 mg disintegrating 0.5 mg PO ONCE PRN #20 tab 06/16/18 01/21/19 tablet pyridoxine (vitamin B6) 50 mg 50 mg PO DAILY #90 cap 06/19/18 01/21/19 capsule epinephrine 0.3 mg/0.3 mL 0.3 mg IM ONCE #2 pen 07/17/18 01/21/19 injection, auto-injector acetaminophen 650 mg rectal 650 mg AR Q4H PRN #90 supp MDD 10/26/18 01/21/19 suppository 3000 mg pedi nutrition,iron,lact-free 0.03 1 ml PO BID PRN #60 ml 11/06/18 01/21/19 gram-1 kcal/mL oral liquid sennosides 8.6 mg tablet 8.6 mg PO DAILY PRN #90 tab 11/06/18 01/21/19 zinc oxide 13 % topical cream 1 applic TP BID-QID PRN #454 gm 11/06/18 01/21/19 bisacodyl 10 mg rectal suppository 10 mg AR DAILY PRN #12 each 11/24/18 01/21/19 Tegretol XR 400 mg tablet,extended 400 mg PO BID #200 tab-cap NS 12/02/18 01/21/19 release gabapentin 800 mg tablet 800 mg PO TID #270 tab 12/02/18 01/21/19 polyethylene glycol 3350 17 gram 17 gm PO DAILY PRN #90 each 12/02/18 01/21/19 oral powder packet simethicone 80 mg chewable tablet 80 mg PO AC #100 tab.chew 12/02/18 01/21/19 Lactobacillus acidophilus 100 100 mmu cells PO TID PRN #120 cap 12/23/18 01/21/19 million cell capsule docusate sodium 100 mg capsule 100 - 200 mg PO TID #360 cap 12/23/18 01/21/19 sennosides 8.6 mg tablet 8.6 mg PO BID #180 tab 12/23/18 01/21/19 Previous Rx's Medication Instructions Recorded pantoprazole 40 mg tablet,delayed 40 mg PO BID #180 tab-cap 04/24/18 release clonazepam 0.5 mg disintegrating 0.5 mg PO ONCE PRN #20 tab 06/16/18 tablet pyridoxine (vitamin B6) 50 mg 50 mg PO DAILY #90 cap 06/19/18 capsule epinephrine 0.3 mg/0.3 mL 0.3 mg IM ONCE #2 pen 07/17/18 injection, auto-injector acetaminophen 650 mg rectal 650 mg AR Q4H PRN #90 supp MDD 10/26/18 suppository 3000 mg sennosides 8.6 mg tablet 8.6 mg PO DAILY PRN #90 tab 11/06/18 zinc oxide 13 % topical cream 1 applic TP BID-QID PRN #454 gm 11/06/18 bisacodyl 10 mg rectal suppository 10 mg AR DAILY PRN #12 each 11/24/18 Tegretol XR 400 mg tablet,extended 400 mg PO BID #200 tab-cap NS 12/02/18 release gabapentin 800 mg tablet 800 mg PO TID #270 tab 12/02/18 polyethylene glycol 3350 17 gram 17 gm PO DAILY PRN #90 each 12/02/18 oral powder packet simethicone 80 mg chewable tablet 80 mg PO AC #100 tab.chew 12/02/18 Lactobacillus acidophilus 100 100 mmu cells PO TID PRN #120 cap 12/23/18 million cell capsule docusate sodium 100 mg capsule 100 - 200 mg PO TID #360 cap 12/23/18 sennosides 8.6 mg tablet 8.6 mg PO BID #180 tab 12/23/18 Allergies Allergy/AdvReac Type Severity Reaction Status Date / Time latex Allergy Severe ANAPHYLAXIS Unverified 01/21/19 22:18 venom-honey bee Allergy Unknown Unverified 01/21/19 22:18 adhesive tape AdvReac Severe irritation, Verified 01/21/19 22:18 rash General Stated Complaint: Seizure JUANJO: 3 Review of Systems All systems reviewed & are unremarkable except as noted in HPI and below PFSH Social History Smoking/Tobacco Use Status: Never Alcohol Intake: never Drug use: Never Substance use type: does not use Caregiver/Support person: Yes Household members: caregiver Housing: house Number of Children: 0 Pets and animals: Yes Pets and animals: dog(s) Frequency: does not exercise Latonya/Uatsdin: None Special latonya needs: No Seatbelt use: always Do you feel safe at home: Yes Do you feel safe in your relationship?: Yes Exam Narrative Exam Narrative: 1.Const: Thin, cachectic, at baseline 2.Eyes: Notable chronic opacification of his eyes bilaterally. Pupils are not visualized. 3.ENT: Atraumatic external nose and ears. Moist MM. Neck: Symmetric, trachea midline, No thyromegaly. 4.CVS: +S1/S2, No murmurs or gallops. Peripheral pulses 2+ and equal in all extremities. Brisk capillary refill in all extremities. 5.RESP: Unlabored respiratory effort. No crackles. No wheezes rhonchi. No significant respiratory distress. 6.GI: Soft, Nontender/Nondistended, No hepatosplenomegaly. No guarding or rebound. Uncircumcised male genitalia, no rash or abnormalities or discharge. 7.MSK: Normocephalic/Atraumatic, Extremities demonstrate chronic deformities. All extremities are retracted which is at his normal pace, however he is actively moving all extremities throughout. No atypical abnormalities. 8.Skin: Warm, Dry. No rashes or lesions. 9.Neuro: Neuro exam is limited secondary to patient's mental baseline, and chronic medical problems. He does respond mildly to commands and appears at baseline. He does seem to move all extremities. Exam there appears to be no nuchal rigidity or meningismus. Course Vital Signs Vital signs: Vital Signs Temperature 37.1 C 01/21/19 21:51 Pulse 137 H 01/21/19 21:51 Respiratory Rate 16 01/21/19 21:51 Blood Pressure 130/74 01/21/19 21:51 Pulse Oximetry 96 01/21/19 21:51 Temperature 37.1 C 01/21/19 21:51 Temperature Source Temporal Artery Scan 01/21/19 21:51 Pulse 137 H 01/21/19 21:51 Respiratory Rate 16 01/21/19 21:51 Blood Pressure 130/74 01/21/19 21:51 Blood Pressure Position Sitting 01/21/19 21:51 Pulse Oximetry 96 01/21/19 21:51 Oxygen Delivery Method Room Air 01/21/19 21:51 Oxygen Flow Rate 0 01/21/19 21:51
[2019-01-21] MEDS: Normal Saline 500 ML IV (22:14)
[2019-01-21 22:24] LABS: Abs Immature Grans 0.04 k/cumm (0.0-0.09); Absolute Basophil Count 0.03 k/cumm (0.0-0.2); Absolute Lymphocyte Count 0.73 k/cumm (1.2-3.4); Absolute Monocyte Count 1.15 k/cumm (0.11-0.7); Absolute Neutrophil Count 14.93 k/cumm (1.2-6.7); Basophils % 0.2; Eosinophils % 0.1; HCT 27.9 % (40.0-50.0); HGB 7.8 g/dL (13.5-17.5); Immature Grans % 0.2; Lymphocytes % 4.3; Mean Corpuscular Hemoglobin 19.8 pg (27.0-33.0); Mean Corpuscular Volume 70.8 fL (80-95); Mean Platelet Volume 9.4 fL (8.0-11.0); Monocytes % 6.8; Neutrophils % 88.4; RBC 3.94 m/cumm (4.50-6.00); RBC Distribution Width 17.3 % (11.8-14.1); White Blood Cell Count 16.89 k/cumm (4.4-10.8)
[2019-01-21 22:34] LABS: Lipase 148 U/L (73-393)
[2019-01-21 22:37] LABS: TROPONIN-I 9.3 ug/mL (4.0-12.0)
[2019-01-21 22:41] LABS: ALT 21 U/L (16-63); AST 10 U/L (15-37); Albumin 3.3 g/dL (3.4-5.0); Alkaline Phosphatase 106 U/L (46-116); Anion Gap 8.2 mmol/L (3-11); BUN 17 mg/dL (7-18); Bilirubin, Total 0.1 mg/dL (0.2-1.0); CO2 29.8 mmol/L (21.0-32.0); Calcium 9.1 mg/dL (8.5-10.1); Chloride 100 mmol/L (98-107); Glucose 133 mg/dL (70-100); Potassium 3.3 mmol/L (3.5-5.1); Sodium 138 mmol/L (136-145); Total Protein 7.1 g/dL (6.4-8.2)
--- NOTE | 2019-01-21 22:55 | DI.RAD_ITS ---
EXAM: XR ABDOMEN FLAT UPRIGHT INDICATION: projectile vomiting. COMPARISON: XR shunt series from 10/21/2018 TECHNIQUE: 2D digital imaging was performed. FINDINGS: COMMERCIAL TITLE EXAMINER shunttubing is seen. There is a severe scoliosis as well as bilateral hip deformities. There is a moderate quantity of stool. No free air or bowel dilatation is seen. IMPRESSION: No acute abnormality.
[2019-01-21 22:58] LABS: Absolute Eosinophil Count 0.02 k/cumm (0.0-0.7); Platelet Count 657 x1000/uL (130-400)
[2019-01-21 22:59] LABS: Bilirubin Negative (Negative); Blood Negative (Negative); Clarity Clear (Clear); Glucose Negative (Negative); Ketones Negative (Negative); Leukocyte Esterase Small (Negative); Nitrite Negative (Negative); Urobilinogen 0.2 EU/dL (Up TO 0.2)
[2019-01-21 22:59] LABS: Hypochromasia 2+; Macrocytosis 1+; Microcytosis 2+
--- NOTE | 2019-01-21 23:00 | DI.RAD_ITS ---
EXAM: XR CHEST 2V PA LATERAL INDICATION: tachy, cough, seizure. COMPARISON: CT ABDOMEN PELVIS WO from 03/07/2018 XR CHEST 2V PA LATERAL from 11/30/2018 TECHNIQUE: 2D digital imaging was performed. FINDINGS: AP and lateral views were performed with the patient on a stretcher. The AP view is rotated. Shunt tubing is seen. Heart size is within normal limits. The lungs are suboptimally inflated. No infilt rate or effusion is seen. There is air fluid level seen on the lateral view corresponding to an air- fluid level in the esophagus. This was seen on the previous exam. IMPRESSION: Dilated esophagus, unchanged. No acute pulmonary abnormality is seen.
[2019-01-21 23:10] LABS: Epithelial Cells Negative HPF (Negative); Other Cells Negative (Negative); RBC Negative (0-2)
--- NOTE | 2019-01-21 23:10 | DI.RAD_ITS ---
EXAM: XR HIP PELVIS ADULT BL INDICATION: chronic hip pain and chronic dislocation, new pain. COMPARISON: No exams were available for comparison TECHNIQUE: 2D digital imaging was performed. FINDINGS: There are stable chronic deformities of both proximal femurs with bilateral hip dislocation, unchange d. The bones are osteoporotic. No fracture is visible. IMPRESSION: No acute abnormality.
[2019-01-21 23:11] LABS: Bacteria Few HPF (Negative); C & S Indicated? No; Casts Negative LPF (Negative); Crystals Negative HPF (Negative); Mucus Negative (Negative)
--- NOTE | 2019-01-21 23:29 | DI.VRAD_ITS ---
PROCEDURE INFORMATION: Exam: XR Bilateral Hips with Pelvis when Performed Exam date and time: 01/21/2019 11:14 PM Clinical history: 33 years old, male; Bilateral; Patient HX: Chronic hip pain and chronic dislocation, new pain TECHNIQUE: Imaging protocol: XR bilateral hips with pelvis when performed. Views: 2 views. 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 No recent fracture or dislocation is identified. Soft tissues: Unremarkable. IMPRESSION: 1. 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 2. No recent fracture or dislocation is identified. Dictated and Authenticated by: Pascual Maynard MD. Ordering:TERRIE Fang MD
--- NOTE | 2019-01-21 23:29 | DI.VRAD_ITS ---
PROCEDURE INFORMATION: Exam: XR Abdomen, 2 Views Exam date and time: 01/21/2019 10:09 PM Clinical history: 33 years old, male; Vomiting TECHNIQUE: Imaging protocol: XR of the abdomen. Frontal supine and upright views of the abdomen. Views: 2 Views. 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 Gastrointestinal tract: Bowel gas pattern is currently normal. Intraperitoneal space: Normal. No free air. Bones/joints: Marked scoliosis of the lumbar spine apex left. There has been resorption of the femoral heads with chronic dislocation. IMPRESSION: Bowel gas pattern is currently normal. Dictated and Authenticated by: Pascual Maynard MD. Ordering:TERRIE Fang MD
[2019-01-21] MEDS: POTASSIUM CHLORIDE 20 MEQ/100 ML BAG 50 MEQ IVPB (23:34)
--- NOTE | 2019-01-21 23:34 | DI.VRAD_ITS ---
PROCEDURE INFORMATION: Exam: XR Chest, 2 Views Exam date and time: 01/21/2019 11:14 PM Clinical history: 33 years old, male; Cough; Additional info: Tachy, cough, seizure TECHNIQUE: Imaging protocol: XR of the chest Views: 2 views. COMPARISON: CR XR CHEST 2V PA LATERAL 11/30/2018 12:15 AM FINDINGS: Tubes, catheters and devices: There is an air-fluid level on the lateral view posteriorly that may represent a dilated esophagus which in retrospect was present on a prior study dated 11/30/2018. 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 Lungs: Unremarkable. No consolidation. Pleural space: Unremarkable. No pleural effusion. No pneumothorax. Heart/Mediastinum: Unremarkable. No cardiomegaly. Bones/joints: Unremarkable. IMPRESSION: There is an air-fluid level on the lateral view posteriorly that may represent fluid in a a dilated esophagus which in retrospect was present on a prior study dated 11/30/2018. Dictated and Authenticated by: Pascual Maynard MD. Ordering:TERRIE Fang MD
[2019-01-22] VITALS (121 sets, daily range): BP systolic 39–112; BP diastolic 15–80; PULSE 56–106; RESP 14–23; TEMP 36.5–37.9; O2SAT 84–100
--- NOTE | 2019-01-22 00:25 | W.PM.HP.N ---
Date of service: 01/22/19 Time of Service: 00:25 Assessment and Plan Assessment and plan (1) Seizure: Status: Acute Assessment and plan: break through seizures despite therapeutic AED's, probably precipitated by anemia/GI bleeding. continue current AED meds; check gabapentin levels; if further breakthrough seizures then consider iv Keppra. (2) Epilepsy: Status: Chronic Assessment and plan: as above Qualifiers: Epilepsy type: partial symptomatic Intractability: intractable Partial seizure type: with simple partial seizures Status epilepticus: without status epilepticus Qualified Code(s): G40.119 - Localization-related (focal) (partial) symptomatic epilepsy and epileptic syndromes with simple partial seizures, intractable, without status epilepticus (3) Anemia, chronic disease: Status: Chronic Assessment and plan: he has hx of anemia of chronic disease but the microcytic indices and worsening of his anemia in setting of Mckenzie's esophagitis suggests an anemia of chronic GI bleeding. We will treat w/ aggressive H2 blockers and PPI and carafate, even consider misoprostol. I will keep NPO except meds for tonight in the event he starts to have acute hematemesis and needs urgent EGD. I will check serial hemograms and type and screen him. If he has significant further drop in his hemoglobin then he will be transfused. The normal BUN argues against recent UGI bleeding, although the tachycardia is of concern. Will transfuse PRBC to Hb above 8 gm. 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 Patient will commonly have breakthrough seizures associated with acute infectious etiology. Today he had 3 seizures and according to instructions given to his caregiver if he has 3 seizures or more in a day he is to present to the nearest emergency room for evaluation. After his last seizure he is returned to his baseline of alertness. He has had no fevers. Over the past month he has had a few episodes of projectile vomiting. He has had known dysphagia and Mckenzie's esophagitis and underwent an EGD with multiple biopsies performed at [facility] in the past month. He has been taking his Tegretol and gabapentin and not missed any doses. According to his caregiver, she has not noticed any hematemesis, nor any melena nor hematochezia. She states that he has been anemic in the past, associated w/ his sepsis and severe UTI's but lately his hemoglobin has been improving. Work-up performed in the emergency room by Dr. Sandoval included routine labs that demonstrated a progressive anemia. His baseline hemoglobin is around 11 to 12 g and was found to have dropped to 7.8 g. Although he has had no history of overt hematemesis digital rectal exam performed by Dr. Sandoval revealed Hemoccult positive stool. Patient has microcytic changes CBC with an MCV of 70.8 which is new and an elevated RDW of 17.3 as well as a leukocytosis of 16,890 and a thrombocytosis of 657,000. His CMP was remarkable for low potassium of 3.3. His BUN and creatinine are normal at 17 and 0.9. LFTs were unremarkable. Magnesium level is pending. Urinalysis was fairly unremarkable demonstrating only small amount of leukocyte esterase with 3-5 white cells per high-powered field and negative for blood and only a few bacteria. Nitrates were negative. Urine was negative for protein or ketones or blood. His Tegretol level was therapeutic at 9.3 he was given an IV fluid bolus and started on IV Protonix and IV Pepcid and oral Carafate in the emergency department. He is being admitted to the ICU for treatment of anemia and what appears to been a chronic GI bleed. Review of Systems Narrative: His caregiver reports that he has not been lethargic nor excessively tired which are usual hallmarks of impendning infection. He does not typically mount high fevers w/ his infections. 3 seizures in one day however is unusual for him. He chronically has a nonproductive cough d/t his GERD. He has not exhibited any melena nor hematochezia nor hematemesis. 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 Bowel and bladder incontinence (Chronic 01/28/14) Cerebral palsy (Chronic) Severe; 23.5 weeks GA; Spastic quadraplegia non verbal Epilepsy (Chronic 04/12/11) Focal epilepsy with impairment of consciousness, intractable (Chronic) GERD (gastroesophageal reflux disease) (Chronic) Hydrocephalus (Chronic 04/30/14) 2014 PEARL MAKER shunt malfunction and new [place]unt [place] [facility] [place] Hydronephrosis (Resolved ~02/2018) s/p R PCN 03/08/18 Hypernatremia (Resolved) Hypokalemia (Resolved) Idiopathic scoliosis (Chronic) Mental retardation (Chronic) non verbal incontinent bladder and bowel Pneumonia (Resolved) Right nephrolithiasis (Chronic) Seizure disorder (Chronic) Swallowing impaired (Chronic) Vitamin D deficiency (Chronic) Surgical History (Updated 01/22/19 @ 00:46 by Bay Mccain) [facility] bilateral prox. femoral resections H/O nephrostomy (Acute) History of lung surgery (Acute) unknown; large scar on chest History of surgical procedure (Inactive) S/P ureteral stent placement (Acute ~06/28/18) [place] [facility] [place] LEFT-kb SHUNT PEARL MAKER SHUNT; revision in 2014 Social History Smoking/Tobacco Use Status: Never Alcohol Intake: never Drug use: Never Substance use type: does not use Caregiver/Support person: Yes Household members: caregiver Housing: house Number of Children: 0 Pets and animals: Yes Pets and animals: dog(s) Frequency: does not exercise Latonya/Christian: None Special latonya needs: No Seatbelt use: always Do you feel safe at home: Yes Do you feel safe in your relationship?: Yes Meds Home Medications and Allergies Home Medications Medication Instructions Recorded Confirmed Type Perla Protect 1 gm PRN PRN 05/31/17 01/21/19 History nystatin 1 gm PRN PRN 05/31/17 01/21/19 History pantoprazole 40 mg tablet,delayed 40 mg PO BID #180 tab-cap 04/24/18 01/21/19 Rx release clonazepam 0.5 mg disintegrating 0.5 mg PO ONCE PRN #20 tab 06/16/18 01/21/19 Rx tablet pyridoxine (vitamin B6) 50 mg 50 mg PO DAILY #90 cap 06/19/18 01/21/19 Rx capsule epinephrine 0.3 mg/0.3 mL 0.3 mg IM ONCE #2 pen 07/17/18 01/21/19 Rx injection, auto-injector acetaminophen 650 mg rectal 650 mg TX Q4H PRN #90 supp MDD 10/26/18 01/21/19 Rx suppository 3000 mg pedi nutrition,iron,lact-free 0.03 1 ml PO BID PRN #60 ml 11/06/18 01/21/19 History gram-1 kcal/mL oral liquid sennosides 8.6 mg tablet 8.6 mg PO DAILY PRN #90 tab 11/06/18 01/21/19 Rx zinc oxide 13 % topical cream 1 applic TP BID-QID PRN #454 gm 11/06/18 01/21/19 Rx bisacodyl 10 mg rectal suppository 10 mg TX DAILY PRN #12 each 11/24/18 01/21/19 Rx Tegretol XR 400 mg tablet,extended 400 mg PO BID #200 tab-cap NS 12/02/18 01/21/19 Rx release gabapentin 800 mg tablet 800 mg PO TID #270 tab 12/02/18 01/21/19 Rx polyethylene glycol 3350 17 gram 17 gm PO DAILY PRN #90 each 12/02/18 01/21/19 Rx oral powder packet simethicone 80 mg chewable tablet 80 mg PO AC #100 tab.chew 12/02/18 01/21/19 Rx Lactobacillus acidophilus 100 100 mmu cells PO TID PRN #120 cap 12/23/18 01/21/19 Rx million cell capsule docusate sodium 100 mg capsule 100 - 200 mg PO TID #360 cap 12/23/18 01/21/19 Rx sennosides 8.6 mg tablet 8.6 mg PO BID #180 tab 12/23/18 01/21/19 Rx Allergies Allergy/AdvReac Type Severity Reaction Status Date / Time latex Allergy Severe ANAPHYLAXIS Unverified 01/21/19 22:18 venom-honey bee Allergy Unknown Unverified 01/21/19 22:18 adhesive tape AdvReac Severe irritation, Verified 01/21/19 22:18 rash Exam Const General: combative and frail appearing Nutritional Appearance: thin and underweight Orientation: awake and not oriented x3 Limitations: behavioral limitations (cognitively impaired d/t brain hemorrhage infancy), language barrier (nonverbal since infancy) and physical limitations (blind) HENUT Head: normocephalic and atraumatic Face and sinus: normal facial exam Mouth: other (dry mucous membranes) Neck Neck: full ROM, supple, no JVD and other (PEARL MAKER shunt along left side of neck) Carotids: normal carotid upstroke Lymphatic: no lymphadenopathy noted Resp Effort & Inspection: normal respiratory effort Auscultation: clear to auscultation bilaterally Cardio Jugular venous pressure: no JVD Palpation: normal PMI Rate: tachycardic Rhythm: regular rhythm Heart Sounds: no murmurs Pulses: normal peripheral pulses GI Inspection: normal to inspection and non-distended Palpation: soft, no hepatosplenomegaly and nontender Percussion: normal to percussion Auscultation: normal bowel sounds Rectal Exam: heme positive stool General: No CVA tenderness Skin Rashes: rashes noted bilateral groin color other (pink, c/w tinea cruris) Neuro General: awake and not oriented x3 Cognition: abnormal cognition Speech: other (nonverbal) Motor: strength 5/5 throughout and other (spastic tone) Extrem General: no joint enlargement, no clubbing, cyanosis or edema and no pedal edema Results Imaging Chest x-ray: report reviewed Labs Result diagrams: 01/22/19 00:25 01/22/19 00:25 Labs: Laboratory Results - last 24 hr 01/21/19 01/21/19 01/21/19 22:10 22:10 22:10 WBC 16.89 H RBC 3.94 L Hgb 7.8 L Hct 27.9 L MCV 70.8 L MCH 19.8 L MCHC 28.0 L RDW 17.3 H Plt Count 657 H MPV 9.4 Immature Gran % 0.2 Neutrophils % 88.4 Lymphocytes % 4.3 Monocytes % 6.8 Eosinophils % 0.1 Basophils % 0.2 Absolute Neutrophils 14.93 H Absolute Lymphocytes 0.73 L Absolute Monocytes 1.15 H Absolute Eosinophils 0.02 Absolute Basophils 0.03 RBC Morphology See below Hypochromasia 2+ Microcytosis 2+ Macrocytosis 1+ Sodium 138 Potassium 3.3 L Chloride 100 Carbon Dioxide 29.8 Anion Gap 8.2 BUN 17 Creatinine 0.90 Estimated GFR/1.73 m2 >= 60.00 Glucose 133 H Calcium 9.1 Total Bilirubin 0.1 L AST 10 L ALT 21 Alkaline Phosphatase 106 Total Protein 7.1 Albumin 3.3 L Lipase 148 Urine Color Urine Clarity Urine pH Ur Specific Center Urine Protein Urine Ketones Urine Blood Urine Nitrite Urine Bilirubin Urine Urobilinogen Ur Leukocyte Esterase Urine RBC Urine WBC Ur Epithelial Cells Urine Crystals Urine Bacteria Urine Casts Urine Mucus Urine Other Ur Culture Indicated? Urine Glucose Carbamazepine 01/21/19 01/21/19 22:10 22:20 WBC RBC Hgb Hct MCV MCH MCHC RDW Plt Count MPV Immature Gran % Neutrophils % Lymphocytes % Monocytes % Eosinophils % Basophils % Absolute Neutrophils Absolute Lymphocytes Absolute Monocytes Absolute Eosinophils Absolute Basophils RBC Morphology Hypochromasia Microcytosis Macrocytosis Sodium Potassium Chloride Carbon Dioxide Anion Gap BUN Creatinine Estimated GFR/1.73 m2 Glucose Calcium Total Bilirubin AST ALT Alkaline Phosphatase Total Protein Albumin Lipase Urine Color Yellow Urine Clarity Clear Urine pH 5.0 Ur Specific Center 1.020 Urine Protein Negative Urine Ketones Negative Urine Blood Negative Urine Nitrite Negative Urine Bilirubin Negative Urine Urobilinogen 0.2 Ur Leukocyte Esterase Small H Urine RBC Negative Urine WBC 3-5 Ur Epithelial Cells Negative Urine Crystals Negative Urine Bacteria Few Urine Casts Negative Urine Mucus Negative Urine Other Negative Ur Culture Indicated? No Urine Glucose Negative Carbamazepine 9.3 Last Vital Signs Temp 37.1 C 01/21/19 21:51 Pulse 137 H 01/21/19 21:51 Resp 16 01/21/19 21:51 BP 130/74 01/21/19 21:51 Pulse Ox 96 01/21/19 21:51
[2019-01-22] MEDS: FAMOTIDINE 20 MG/50 ML BAG 100 MG IVPB (00:40)
[2019-01-22] MEDS: Pantoprazole 40 MG VIAL 80 MG IVP (00:40)
[2019-01-22 00:49] LABS: Abs Immature Grans 0.04 k/cumm (0.0-0.09); Absolute Basophil Count 0.02 k/cumm (0.0-0.2); Absolute Monocyte Count 1.18 k/cumm (0.11-0.7); Basophils % 0.1; Eosinophils % 0.1; HCT 27.1 % (40.0-50.0); HGB 7.3 g/dL (13.5-17.5); Immature Grans % 0.3; Lymphocytes % 8.5; Mean Corp. HGB Concentration 26.9 g/dL (32.0-36.0); Mean Corpuscular Hemoglobin 19.1 pg (27.0-33.0); Mean Corpuscular Volume 70.8 fL (80-95); Mean Platelet Volume 9.6 fL (8.0-11.0); Monocytes % 7.7; Neutrophils % 83.3; Platelet Count 647 x1000/uL (130-400); RBC 3.83 m/cumm (4.50-6.00); RBC Distribution Width 17.3 % (11.8-14.1); White Blood Cell Count 15.37 k/cumm (4.4-10.8)
[2019-01-22 00:53] LABS: Absolute Eosinophil Count 0.02 k/cumm (0.0-0.7); Absolute Lymphocyte Count 1.31 k/cumm (1.2-3.4)
[2019-01-22 00:57] LABS: Magnesium 2.2 mg/dL (1.8-2.4)
[2019-01-22 00:59] LABS: Anion Gap 9.5 mmol/L (3-11); BUN 17 mg/dL (7-18); CO2 27.5 mmol/L (21.0-32.0); Calcium 8.7 mg/dL (8.5-10.1); Chloride 104 mmol/L (98-107); Glucose 105 mg/dL (70-100); Potassium 4.1 mmol/L (3.5-5.1); Sodium 141 mmol/L (136-145)
--- NOTE | 2019-01-22 01:20 | NUR.NOTE ---
Attempted to give carafate, pt refusing to take. Per MD Whittaker, pt to remain NPO.
[2019-01-22] MEDS: Acetaminophen 650 MG SUPP PR ×4 (01:56→23:28)
[2019-01-22] MEDS: POTASSIUM CHLORIDE/0.9% NACL 1,000 ML 125 MEQ IV (02:26)
[2019-01-22 02:39] LABS: Procalcitonin 0.1 ng/mL
[2019-01-22] MEDS: Normal Saline Flush 10 ML SYR IVP ×4 (02:41→23:28)
[2019-01-22 02:51] LABS: Ferritin 7 ng/mL (8-388)
[2019-01-22 06:07] LABS: Reticulocyte 2.1 % (0.5-2.4)
--- NOTE | 2019-01-22 08:21 | PGE_ITS ---
Date of Service Date of service: 01/22/19 Time of Service: 13:41 Assessment and Plan Assessment and plan (1) Upper GI bleeding: Status: Acute Assessment and plan: General surgery consulted. The patient is s/p EGD recently at [facility] [place] with biopsies - could be oozing from sites. On protonix 40 mg IV Q12 hrs and pepcid IV. Refused carafate in ED. I have consulted general surgery in case the patient does require an urgent/emergent EGD. (2) Acute on chronic blood loss anemia: Status: Acute Assessment and plan: Transfusing 2 units pRBC's today. WIll repeat H/H and recheck again at 6 pm. (3) Seizure: Status: Acute Assessment and plan: s/p breakthrough seizures - however, no infectious trigger has been identified. Continue home regimen of tegretol, gabapentin. Monitor in ICU for recurrence of seizures. (4) Status post ventriculoperitoneal shunt: Status: Chronic Assessment and plan: No evidence of infection. However, if seizures recur, would consider CT head to ensure hydrocephalus is stable. (5) GERD (gastroesophageal reflux disease): Status: Chronic Assessment and plan: As above - on PPI and H2 osman. Qualifiers: Esophagitis presence: esophagitis presence not specified Qualified Code(s): K21.9 - Gastro-esophageal reflux disease without esophagitis (6) Mental retardation: Status: Chronic Assessment and plan: Monitor behaviors - appears near baseline at this time. (7) DVT prophylaxis: Status: Acute Assessment and plan: Chemical DVT ppx is contraindicated due to GI bleeding. TEDs + SCDs ordered (8) Discharge planning issues: Status: Acute Assessment and plan: DNR/DNI Subjective Subjective Interval history since last seen: Receiving 2 units of blood. No active bleeding here, hemoccult and gastroccult positive at home. HR now in 60- 70's while sleeping - was in 150's/160's at home after seizures. Per stick welder Dorcas, sometimes blood/gastroccult positivity is from tongue bites. The patient is asleep at the time of my visit. Nonverbal. Exam Narrative Exam Narrative: General: Chilo is asleep; he appears comfortable in bed, legs contracted HEENT: eyes closed, MMM Heart: RRR, no m/r/g Lungs: CTAB GI: abdomen is soft, the patient does not seem to react to when I press on it Exremities: contracted; no edema Objective Objective Clinical Data: Abnormal lab results 01/21/19 01/21/19 01/21/19 Range/Units 22:10 22:10 22:20 WBC 16.89 H (4.4-10.8) k/cumm RBC 3.94 L (4.50-6.00) m/cumm Hgb 7.8 L (13.5-17.5) g/dL Hct 27.9 L (40.0-50.0) % MCV 70.8 L (80-95) fL MCH 19.8 L (27.0-33.0) pg MCHC 28.0 L (32.0-36.0) g/dL RDW 17.3 H (11.8-14.1) % Plt Count 657 H (130-400) x1000/uL Absolute Neutrophils 14.93 H (1.2-6.7) k/cumm Absolute Lymphocytes 0.73 L (1.2-3.4) k/cumm Absolute Monocytes 1.15 H (0.11-0.7) k/cumm Potassium 3.3 L (3.5-5.1) mmol/L Glucose 133 H (70-100) mg/dL Ferritin (8-388) ng/mL Total Bilirubin 0.1 L (0.2-1.0) mg/dL AST 10 L (15-37) U/L Albumin 3.3 L (3.4-5.0) g/dL Ur Leukocyte Esterase Small H (Negative) Crossmatch 01/22/19 01/22/19 01/22/19 Range/Units 00:25 00:25 00:25 WBC 15.37 H (4.4-10.8) k/cumm RBC 3.83 L (4.50-6.00) m/cumm Hgb 7.3 L (13.5-17.5) g/dL Hct 27.1 L (40.0-50.0) % MCV 70.8 L (80-95) fL MCH 19.1 L (27.0-33.0) pg MCHC 26.9 L (32.0-36.0) g/dL RDW 17.3 H (11.8-14.1) % Plt Count 647 H (130-400) x1000/uL Absolute Neutrophils 12.80 H (1.2-6.7) k/cumm Absolute Lymphocytes (1.2-3.4) k/cumm Absolute Monocytes 1.18 H (0.11-0.7) k/cumm Potassium (3.5-5.1) mmol/L Glucose 105 H (70-100) mg/dL Ferritin (8-388) ng/mL Total Bilirubin (0.2-1.0) mg/dL AST (15-37) U/L Albumin (3.4-5.0) g/dL Ur Leukocyte Esterase (Negative) Crossmatch See Detail 01/22/19 Range/Units 00:25 WBC (4.4-10.8) k/cumm RBC (4.50-6.00) m/cumm Hgb (13.5-17.5) g/dL Hct (40.0-50.0) % MCV (80-95) fL MCH (27.0-33.0) pg MCHC (32.0-36.0) g/dL RDW (11.8-14.1) % Plt Count (130-400) x1000/uL Absolute Neutrophils (1.2-6.7) k/cumm Absolute Lymphocytes (1.2-3.4) k/cumm Absolute Monocytes (0.11-0.7) k/cumm Potassium (3.5-5.1) mmol/L Glucose (70-100) mg/dL Ferritin 7 L (8-388) ng/mL Total Bilirubin (0.2-1.0) mg/dL AST (15-37) U/L Albumin (3.4-5.0) g/dL Ur Leukocyte Esterase (Negative) Crossmatch Vital Signs Temperature 36.5 C 01/22/19 05:05 Temperature Source Tympanic 01/22/19 05:05 Pulse 80 01/22/19 02:43 Respiratory Rate 23 01/22/19 02:43 Respiratory Effort 01/22/19 05:05 Respiratory Depth Normal 01/22/19 05:05 Respiratory Pattern Normal 01/22/19 05:05 Blood Pressure 94/46 L 01/22/19 01:42 Blood Pressure Position Sitting 11/07/19 21:51 Pulse Oximetry 98 01/22/19 02:43 Oxygen Delivery Method Room Air 01/22/19 05:05 Oxygen Flow Rate 0 01/22/19 05:05 Intake & Output 01/21/19 01/21/19 01/22/19 11:59 23:59 11:59 Intake Total 510 / 510 150 / 150 Balance 510 / 510 150 / 150 Weight 65.7 kg 29.7 kg Intake: IV 510 / 510 150 / 150 Oral 0 / 0 Laboratory Results WBC 15.37 k/cumm (4.4-10.8) H 01/22/19 00:25 RBC 3.83 m/cumm (4.50-6.00) L 01/22/19 00:25 Hgb 7.3 g/dL (13.5-17.5) L 01/22/19 00:25 Hct 27.1 % (40.0-50.0) L 01/22/19 00:25 MCV 70.8 fL (80-95) L 01/22/19 00:25 MCH 19.1 pg (27.0-33.0) L 01/22/19 00:25 MCHC 26.9 g/dL (32.0-36.0) L 01/22/19 00:25 RDW 17.3 % (11.8-14.1) H 01/22/19 00:25 Plt Count 647 x1000/uL (130-400) H 01/22/19 00:25 MPV 9.6 fL (8.0-11.0) 01/22/19 00:25 Immature Gran % 0.3 01/22/19 00:25 Neutrophils % 83.3 01/22/19 00:25 Lymphocytes % 8.5 01/22/19 00:25 Monocytes % 7.7 01/22/19 00:25 Eosinophils % 0.1 01/22/19 00:25 Basophils % 0.1 01/22/19 00:25 Absolute Neutrophils 12.80 k/cumm (1.2-6.7) H 01/22/19 00:25 Absolute Lymphocytes 1.31 k/cumm (1.2-3.4) 01/22/19 00:25 Absolute Monocytes 1.18 k/cumm (0.11-0.7) H 01/22/19 00:25 Absolute Eosinophils 0.02 k/cumm (0.0-0.7) 01/22/19 00:25 Absolute Basophils 0.02 k/cumm (0.0-0.2) 01/22/19 00:25 RBC Morphology See below 01/21/19 22:10 Hypochromasia 2+ 01/21/19 22:10 Microcytosis 2+ 01/21/19 22:10 Macrocytosis 1+ 01/21/19 22:10 Retic Count 2.1 % (0.5-2.4) 01/22/19 00:25 Sodium 141 mmol/L (136-145) 01/22/19 00:25 Potassium 4.1 mmol/L (3.5-5.1) D 01/22/19 00:25 Chloride 104 mmol/L (98-107) 01/22/19 00:25 Carbon Dioxide 27.5 mmol/L (21.0-32.0) 01/22/19 00:25 Anion Gap 9.5 mmol/L (3-11) 01/22/19 00:25 BUN 17 mg/dL (7-18) 01/22/19 00:25 Creatinine 0.80 mg/dL (0.70-1.30) 01/22/19 00:25 Estimated GFR/1.73 m2 >= 60.00 (mL/min/1.73m2) 01/22/19 00:25 Glucose 105 mg/dL (70-100) H 01/22/19 00:25 Calcium 8.7 mg/dL (8.5-10.1) 01/22/19 00:25 Magnesium 2.2 mg/dL (1.8-2.4) 01/22/19 00:25 Ferritin 7 ng/mL (8-388) L 01/22/19 00:25 Total Bilirubin 0.1 mg/dL (0.2-1.0) L 01/21/19 22:10 AST 10 U/L (15-37) L 01/21/19 22:10 ALT 21 U/L (16-63) 01/21/19 22:10 Alkaline Phosphatase 106 U/L (46-116) 01/21/19 22:10 Total Protein 7.1 g/dL (6.4-8.2) 01/21/19 22:10 Albumin 3.3 g/dL (3.4-5.0) L 01/21/19 22:10 Lipase 148 U/L (73-393) 01/21/19 22:10 Procalcitonin 0.1 ng/mL 01/22/19 00:25 Urine Color Yellow (Yellow) 01/21/19 22:20 Urine Clarity Clear (Clear) 01/21/19 22:20 Urine pH 5.0 (5-8) 01/21/19 22:20 Ur Specific [place] 1.020 (1.005-1.025) 01/21/19 22:20 Urine Protein Negative mg/dL (Negative) 01/21/19 22:20 Urine Ketones Negative mg/dL (Negative) 01/21/19 22:20 Urine Blood Negative (Negative) 01/21/19 22:20 Urine Nitrite Negative (Negative) 01/21/19 22:20 Urine Bilirubin Negative (Negative) 01/21/19 22:20 Urine Urobilinogen 0.2 EU/dL (Up TO 0.2) 01/21/19 22:20 Ur Leukocyte Esterase Small (Negative) H 01/21/19 22:20 Urine RBC Negative (0-2) 01/21/19 22:20 Urine WBC 3-5 HPF (0-5) 01/21/19 22:20 Ur Epithelial Cells Negative HPF (Negative) 01/21/19 22:20 Urine Crystals Negative HPF (Negative) 01/21/19 22:20 Urine Bacteria Few HPF (Negative) 01/21/19 22:20 Urine Casts Negative LPF (Negative) 01/21/19 22:20 Urine Mucus Negative (Negative) 01/21/19 22:20 Urine Other Negative (Negative) 01/21/19 22:20 Ur Culture Indicated? No 01/21/19 22:20 Urine Glucose Negative mg/dL (Negative) 01/21/19 22:20 Carbamazepine 9.3 ug/mL (4.0-12.0) 01/21/19 22:10 Patient ABO/Rh A Negative 01/22/19 00:25 Antibody Screen Negative 01/22/19 00:25 Crossmatch See Detail 01/22/19 00:25
[2019-01-22 08:36] LABS: HCT 22.2 % (40.0-50.0)
[2019-01-22 08:37] LABS: Iron 8 ug/dL (50-175); Total Iron Binding Capacity 259 ug/dL (250-450); Transferrin Sat 3 % (20-55)
[2019-01-22 08:41] LABS: HGB 5.9 g/dL (13.5-17.5)
[2019-01-22] MEDS: carBAMazepine 200 MG TAB 400 MG PO ×2 (09:33→18:31)
[2019-01-22] MEDS: Docusate Sodium 100 MG CAP 200 MG PO ×3 (09:33→18:31)
[2019-01-22] MEDS: Gabapentin 800 MG TAB PO ×3 (09:33→18:31)
[2019-01-22] MEDS: Simethicone 80 MG CHEW PO ×3 (09:35→18:31)
[2019-01-22] MEDS: Polyethylene Glycol 3350 17 GM PACKET PO (09:35)
[2019-01-22] MEDS: Senna TAB 1 TAB PO ×2 (09:35→18:32)
[2019-01-22 10:22] LABS: Anisocytosis 3+; Diff Comment RBC Morph Reviewed
[2019-01-22 10:23] LABS: Hypochromasia 3+; Microcytosis 3+
[2019-01-22] MEDS: Pantoprazole 40 MG VIAL IVP ×2 (12:52→23:28)
[2019-01-22] MEDS: FAMOTIDINE 20 MG/50 ML BAG 200 MG IVPB ×2 (12:54→23:27)
[2019-01-22] MEDS: Normal Saline 1,000 ML 50 ML IV (12:59)
--- NOTE | 2019-01-22 14:33 | W.SURGCON ---
Date of service: 01/22/19 Time of Service: 14:33 Assessment and Plan Assessment and plan (1) Upper GI bleeding: Status: Acute Assessment and plan: pt is receiving blood. he is on PPI and H2 osman. We will see if we can get him to take carafate slurry He seems to be comfortable and no pain/distress. VS have been stable. He has not had any problems w/ anesthesia in the past- but it does throw off his schedule/routine and often results i increase in seizure activity for 1-2 days. I'm not sure what the etiology of the bleed is. It has been three weeks since the egd and bx. He is not on blood thinners/nsaid's- adn I can't see this being the etiology. However, there is nothing else that he is on/does that seems could trigger it. Unless he developed a Samantha baldwin tear from the vomiting episode on Friday. At this time he is asymptomatic. We will continue to treat him medically. If he b/c unstable or continues to bleed- than we will do an EGD w/ [facility]. I d/w his caregiver- she is agreeable and comfortable w/ this strategy. 1hr spent in counseltation today (2) Acute on chronic blood loss anemia: Status: Acute (3) Seizure disorder: Status: Chronic (4) Anemia: Status: Chronic (5) GERD (gastroesophageal reflux disease): Status: Chronic Qualifiers: Esophagitis presence: esophagitis presence not specified Qualified Code(s): K21.9 - Gastro-esophageal reflux disease without esophagitis (6) Seizure: Status: Acute (7) Mental retardation: Status: Chronic (8) Idiopathic scoliosis: Status: Chronic History of Present Illness Narrative: Pt is non verbal and can't give a HX. Most info is taken from chart. From VT: Laboratory work-up is returned, patient is remained stable here in the ED during his stay. Laboratory work-up demonstrates an elevated white count of 16 stiffly on the high side for the patient. Hemoglobin is also notably low at 7.8 which is a 3-1/2 point drop from his more recent hemoglobin a month ago. Renal function stable, potassium slightly low at 3.3. Urinalysis does not reflect significant urinary tract infection. Carbamazepine level normal. Because of his low hemoglobin I did perform a Hemoccult, and although his stool is brown and Hemoccult is notably positive. Suggestive of a potential mild GI bleed. X-rays are unremarkable for acute process. Patient and family have been under significant amount of stress as of late. Caregiver does state that he Hemoccult performed 1 month ago was negative. He did have an EGD done at [facility] 3 weeks ago where multiple biopsies were performed of his stomach. It is difficult to ascertain exactly how many biopsies were performed however from the report it appears that there was quite a notable amount certainly greater than 6 of the stomach area alone. I am concerned that he may be having a continued mild bleed from this. He is on pantoprazole already, but he seems that this is not adequate at this time. We will give IV bolus of both famotidine and omeprazole. We will give Carafate. I did contact the hospitalist and discussed the case with him. He agrees for admission. Patient will be admitted for serial hemoglobins, aggressive gastric ulcer management, correction of his potassium, and close following. I have extensively reviewed the treatment plan with the patient. I have addressed all patient concerns at this time. I have also discussed the plan with the admitting physician and they agree with the current assessment and plan and have agreed to assume responsibility for the patient. All parties demonstrate verbal understanding and agreement with our assessment and plan at this time. From H&P: Chief Complaint: seizure Narrative: 33-year-old male with history of cerebral palsy, brain hemorrhage as a baby, severe developmental delay, status post GRANITE INSTALLER shunt, chronic blindness, chronic seizures treated with Neurontin and carbamazepine along with clonazepam on an as-needed basis, history of nephrolithiasis and UTIs as well as prior hospitalization for sepsis and pneumonia. Patient will commonly have breakthrough seizures associated with acute infectious etiology. Today he had 3 seizures and according to instructions given to his caregiver if he has 3 seizures or more in a day he is to present to the nearest emergency room for evaluation. After his last seizure he is returned to his baseline of alertness. He has had no fevers. Over the past month he has had a few episodes of projectile vomiting. He has had known dysphagia and Mckenzie's esophagitis and underwent an EGD with multiple biopsies performed at [facility] in the past month. He has been taking his Tegretol and gabapentin and not missed any doses. According to his caregiver, she has not noticed any hematemesis, nor any melena nor hematochezia. She states that he has been anemic in the past, associated w/ his sepsis and severe UTI's but lately his hemoglobin has been improving. Work-up performed in the emergency room by Dr. Sandoval included routine labs that demonstrated a progressive anemia. His baseline hemoglobin is around 11 to 12 g and was found to have dropped to 7.8 g. Although he has had no history of overt hematemesis digital rectal exam performed by Dr. Sandoval revealed Hemoccult positive stool. Patient has microcytic changes CBC with an MCV of 70.8 which is new and an elevated RDW of 17.3 as well as a leukocytosis of 16,890 and a thrombocytosis of 657,000. His CMP was remarkable for low potassium of 3.3. His BUN and creatinine are normal at 17 and 0.9. LFTs were unremarkable. Magnesium level is pending. Urinalysis was fairly unremarkable demonstrating only small amount of leukocyte esterase with 3-5 white cells per high-powered field and negative for blood and only a few bacteria. Nitrates were negative. Urine was negative for protein or ketones or blood. His Tegretol level was therapeutic at 9.3 he was given an IV fluid bolus and started on IV Protonix and IV Pepcid and oral Carafate in the emergency department. He is being admitted to the ICU for treatment of anemia and what appears to been a chronic GI bleed. -[place] [facility] [place] Stomach adn duodenum were nl. the esophagus shows rn long term care changes from reflux- w/ mild chronic inflammation and FROYLAN; this is usually asymp adn benign and not source of bleeding. I was able to find the EGD report and Bx report and did review these. -His manager intensive care unit is present later on this afternoon and can give more Hx (she is an ICU nurse). he has a long standing Hx of GERD nad has routine surveillance scopes. He is not on blood thinners/NSAIDS. He will vomiting about x1 per week after eating. This occurred on . it didn't seem worse than usual. He did not vomit any blood. He is on chronic Fe supp and had black stools routinely. bowels are regular. There were no falls or any other unusual activities. He is on chronic PPI therapy and a good bowel regimine. He is not on nsaid's or blood thinners. morning he did not eat well and didn't seem like himself. Than started w/ the seizures. currently he is receiving blood. He has not thrown up any blood. he appears comfortable and does not seem to have any abdominal pain w/ palpation. Hemeoccults were +. He is on PPI and H2 blockers currently. Carafate slurry would be possible. 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 Bowel and bladder incontinence (Chronic 01/28/14) Cerebral palsy (Chronic) Severe; 23.5 weeks GA; Spastic quadraplegia non verbal Epilepsy (Chronic 04/12/11) Focal epilepsy with impairment of consciousness, intractable (Chronic) GERD (gastroesophageal reflux disease) (Chronic) Hydrocephalus (Chronic 04/30/14) 2014 GRANITE INSTALLER shunt malfunction and [place] [facility] [place] Hydronephrosis (Resolved ~02/2018) s/p R PCN 03/08/18 Hypernatremia (Resolved) Hypokalemia (Resolved) Idiopathic scoliosis (Chronic) Mental retardation (Chronic) non verbal incontinent bladder and bowel Pneumonia (Resolved) Right nephrolithiasis (Chronic) Seizure disorder (Chronic) Swallowing impaired (Chronic) Vitamin D deficiency (Chronic) Surgical History FEMORAL DIVISION bilateral prox. femoral resections H/O nephrostomy (Acute) History of lung surgery (Acute) unknown; large scar on chest History of surgical procedure (Inactive) S/P ureteral stent placement (Acute ~06/28/18) [place] [facility] [place]-kb SHUNT GRANITE INSTALLER SHUNT; revision in 2014 Family History Mother , AGE 40 Cancer Father No problems noted. Sister Neoplasm Maternal Grandfather , AGE 73 Cancer Maternal Grandmother , AGE 77 Cancer Brother , MVA AGE 10 No problems noted. Social History Smoking/Tobacco Use Status: Never Alcohol Intake: never Drug use: Never Substance use type: does not use Caregiver/Support person: Yes Household members: caregiver Housing: house Number of Children: 0 Pets and animals: Yes Pets and animals: dog(s) Frequency: does not exercise Latonya/Tenriism: None Special latonya needs: No Seatbelt use: always Do you feel safe at home: Yes Do you feel safe in your relationship?: Yes Exam Const General: cooperative, healthy appearing, comfortable, no acute distress, well developed and well groomed Nutritional Appearance: average body habitus and well nourished Orientation: alert, awake and oriented x3 HENMT Head: normocephalic and atraumatic Ears: external ears normal General nose exam: external nose normal Mouth: tongue normal and moist mucous membranes Teeth and gingiva: fair dentition Eyes General: appearance normal, both eyes and all related structures Conjunctivae: conjunctivae normal Sclera: sclerae normal Pupils: PERRL Neck Neck: normal visual inspection and full ROM Chest Chest: normal inspection of the chest Resp Effort & Inspection: normal respiratory effort, able to speak in complete sentences, no cough, no nasal flaring, not tachypneic and no use of accessory muscles Auscultation: clear to auscultation bilaterally, no rales, no rhonchi and no wheezes Cardio Jugular venous pressure: no JVD Rate: regular rate Rhythm: regular rhythm GI Inspection: normal to inspection, no edema and non-distended Palpation: soft, no masses, nontender and No ascites Auscultation: normal bowel sounds Skin General skin exam: no rashes or lesions noted Trauma: no lacerations or abrasions Neuro General: alert and awake Psych Appearance: well kempt Results Last Vital Signs Temp 37.5 C 01/22/19 12:37 Pulse 69 01/22/19 12:37 Resp 17 01/22/19 12:37 BP 92/58 L 01/22/19 12:37 Pulse Ox 100 01/22/19 12:37 Labs Result diagrams: 01/23/19 11:10 01/23/19 11:10 Labs: Laboratory Results - last 24 hr 01/21/19 01/21/19 01/21/19 22:10 22:10 22:10 WBC 16.89 H RBC 3.94 L Hgb 7.8 L Hct 27.9 L MCV 70.8 L MCH 19.8 L MCHC 28.0 L RDW 17.3 H Plt Count 657 H MPV 9.4 Immature Gran % 0.2 Neutrophils % 88.4 Lymphocytes % 4.3 Monocytes % 6.8 Eosinophils % 0.1 Basophils % 0.2 Absolute Neutrophils 14.93 H Absolute Lymphocytes 0.73 L Absolute Monocytes 1.15 H Absolute Eosinophils 0.02 Absolute Basophils 0.03 Differential Comment RBC Morphology See below Hypochromasia 2+ Anisocytosis Microcytosis 2+ Macrocytosis 1+ Retic Count Sodium 138 Potassium 3.3 L Chloride 100 Carbon Dioxide 29.8 Anion Gap 8.2 BUN 17 Creatinine 0.90 Estimated GFR/1.73 m2 >= 60.00 Glucose 133 H Calcium 9.1 Magnesium Iron TIBC Transferrin % Sat Ferritin Total Bilirubin 0.1 L AST 10 L ALT 21 Alkaline Phosphatase 106 Total Protein 7.1 Albumin 3.3 L Lipase 148 Procalcitonin Urine Color Urine Clarity Urine pH Ur Specific [place] Urine Protein Urine Ketones Urine Blood Urine Nitrite Urine Bilirubin Urine Urobilinogen Ur Leukocyte Esterase Urine RBC Urine WBC Ur Epithelial Cells Urine Crystals Urine Bacteria Urine Casts Urine Mucus Urine Other Ur Culture Indicated? Urine Glucose Carbamazepine Patient ABO/Rh Antibody Screen Crossmatch 01/21/19 01/21/19 01/22/19 22:10 22:20 00:25 WBC RBC Hgb Hct MCV MCH MCHC RDW Plt Count MPV Immature Gran % Neutrophils % Lymphocytes % Monocytes % Eosinophils % Basophils % Absolute Neutrophils Absolute Lymphocytes Absolute Monocytes Absolute Eosinophils Absolute Basophils Differential Comment RBC Morphology Hypochromasia Anisocytosis Microcytosis Macrocytosis Retic Count Sodium Potassium Chloride Carbon Dioxide Anion Gap BUN Creatinine Estimated GFR/1.73 m2 Glucose Calcium Magnesium 2.2 Iron TIBC Transferrin % Sat Ferritin Total Bilirubin AST ALT Alkaline Phosphatase Total Protein Albumin Lipase Procalcitonin Urine Color Yellow Urine Clarity Clear Urine pH 5.0 Ur Specific [place] 1.020 Urine Protein Negative Urine Ketones Negative Urine Blood Negative Urine Nitrite Negative Urine Bilirubin Negative Urine Urobilinogen 0.2 Ur Leukocyte Esterase Small H Urine RBC Negative Urine WBC 3-5 Ur Epithelial Cells Negative Urine Crystals Negative Urine Bacteria Few Urine Casts Negative Urine Mucus Negative Urine Other Negative Ur Culture Indicated? No Urine Glucose Negative Carbamazepine 9.3 Patient ABO/Rh Antibody Screen Crossmatch 01/22/19 01/22/19 01/22/19 00:25 00:25 00:25 WBC 15.37 H RBC 3.83 L Hgb 7.3 L Hct 27.1 L MCV 70.8 L MCH 19.1 L MCHC 26.9 L RDW 17.3 H Plt Count 647 H MPV 9.6 Immature Gran % 0.3 Neutrophils % 83.3 Lymphocytes % 8.5 Monocytes % 7.7 Eosinophils % 0.1 Basophils % 0.1 Absolute Neutrophils 12.80 H Absolute Lymphocytes 1.31 Absolute Monocytes 1.18 H Absolute Eosinophils 0.02 Absolute Basophils 0.02 Differential Comment Rbc morph reviewed RBC Morphology Hypochromasia 3+ Anisocytosis 3+ Microcytosis 3+ Macrocytosis Retic Count Sodium 141 Potassium 4.1 D Chloride 104 Carbon Dioxide 27.5 Anion Gap 9.5 BUN 17 Creatinine 0.80 Estimated GFR/1.73 m2 >= 60.00 Glucose 105 H Calcium 8.7 Magnesium Iron TIBC Transferrin % Sat Ferritin Total Bilirubin AST ALT Alkaline Phosphatase Total Protein Albumin Lipase Procalcitonin Urine Color Urine Clarity Urine pH Ur Specific [place] Urine Protein Urine Ketones Urine Blood Urine Nitrite Urine Bilirubin Urine Urobilinogen Ur Leukocyte Esterase Urine RBC Urine WBC Ur Epithelial Cells Urine Crystals Urine Bacteria Urine Casts Urine Mucus Urine Other Ur Culture Indicated? Urine Glucose Carbamazepine Patient ABO/Rh A Negative Antibody Screen Negative Crossmatch See Detail 01/22/19 01/22/19 01/22/19 00:25 00:25 00:25 WBC RBC Hgb Hct MCV MCH MCHC RDW Plt Count MPV Immature Gran % Neutrophils % Lymphocytes % Monocytes % Eosinophils % Basophils % Absolute Neutrophils Absolute Lymphocytes Absolute Monocytes Absolute Eosinophils Absolute Basophils Differential Comment RBC Morphology Hypochromasia Anisocytosis Microcytosis Macrocytosis Retic Count 2.1 Sodium Potassium Chloride Carbon Dioxide Anion Gap BUN Creatinine Estimated GFR/1.73 m2 Glucose Calcium Magnesium Iron TIBC Transferrin % Sat Ferritin 7 L Total Bilirubin AST ALT Alkaline Phosphatase Total Protein Albumin Lipase Procalcitonin 0.1 Urine Color Urine Clarity Urine pH Ur Specific [place] Urine Protein Urine Ketones Urine Blood Urine Nitrite Urine Bilirubin Urine Urobilinogen Ur Leukocyte Esterase Urine RBC Urine WBC Ur Epithelial Cells Urine Crystals Urine Bacteria Urine Casts Urine Mucus Urine Other Ur Culture Indicated? Urine Glucose Carbamazepine Patient ABO/Rh Antibody Screen Crossmatch 01/22/19 01/22/19 07:45 07:45 WBC RBC Hgb 5.9 L* Hct 22.2 L MCV MCH MCHC RDW Plt Count MPV Immature Gran % Neutrophils % Lymphocytes % Monocytes % Eosinophils % Basophils % Absolute Neutrophils Absolute Lymphocytes Absolute Monocytes Absolute Eosinophils Absolute Basophils Differential Comment RBC Morphology Hypochromasia Anisocytosis Microcytosis Macrocytosis Retic Count Sodium Potassium Chloride Carbon Dioxide Anion Gap BUN Creatinine Estimated GFR/1.73 m2 Glucose Calcium Magnesium Iron 8 L TIBC 259 Transferrin % Sat 3 L Ferritin Total Bilirubin AST ALT Alkaline Phosphatase Total Protein Albumin Lipase Procalcitonin Urine Color Urine Clarity Urine pH Ur Specific [place] Urine Protein Urine Ketones Urine Blood Urine Nitrite Urine Bilirubin Urine Urobilinogen Ur Leukocyte Esterase Urine RBC Urine WBC Ur Epithelial Cells Urine Crystals Urine Bacteria Urine Casts Urine Mucus Urine Other Ur Culture Indicated? Urine Glucose Carbamazepine Patient ABO/Rh Antibody Screen Crossmatch
--- NOTE | 2019-01-22 14:55 | INITIAL_ITS ---
- If Service Date Differs Date of service: 01/22/19 Time of Service: 14:55 Care Management Initial Assess REASON FOR HOSPITALIZATION:: GI Bleed PAST MEDICAL HISTORY/PAST SURGICAL HISTORY:: Medical History. Anemia (Chronic). Anemia, chronic disease (Chronic 09/18/16). Aspiration pneumonia (Resolved). 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 EGD at [facility] [place], [place]. Blindness of both eyes (Chronic). 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 Bowel and bladder incontinence (Chronic 01/28/14). Cerebral palsy (Chronic). Severe; 23.5 weeks GA; Spastic quadraplegia. non verbal. Epilepsy (Chronic 04/12/11). Focal epilepsy with impairment of consciousness, intractable (Chronic). GERD (gastroesophageal reflux disease) (Chronic). Hydrocephalus (Chronic 04/30/14). 2014 LONG TERM CARE PHLEBOTOMIST shunt malfunction and new shunt inserted at [facility] [place] Apr [place]. Hydronephr osis (Resolved ~02/2018). s/p R PCN 03/08/18. Hypernatremia (Resolved). Hypokalemia (Resolved). Idiopathic scoliosis (Chronic). Mental retardation (Chronic). non verbal. incontinent bladder and bowel. Pneumonia (Resolved). Right nephrolithiasis (Chronic). Seizure disorder (Chronic). Swallowing impaired (Chronic). Vitamin D deficiency (Chronic). Surgical History. FEMORAL DIVISION. bilateral prox. femoral resections. H/O nephrostomy (Acute). History of lung surgery (Acute). unknown; large scar on chest. History of surgical procedure (Inactive). S/P ureteral stent placement (Acute ~06/28/18). 06/28/18 [facility] [place] LEFT-kb. SHUNT PREVIOUS FUNCTIONAL STATUS/SOCIAL/FAMILY SUPPORTS:: Gio lives with a home provider Nancy and he has a court appointed guardian Garland Gaffney, contact number is [phone]. Chilo is dependent for all ADL's including feeding. He is cared for by Nancy and also her son Taurus. He was previously cared for by Nancy's mother, Arabella, who has recently passed. He is wheelchair dependent. CURRENT FUNCTIONAL STATUS:: Chilo was sitting up in his chair when met with him. His caregiver, Nancy was by his side, feeding him. Nancy stated that he is 'grumpy' today, as 'he doesn't like being in the hospital'. Nancy reported that Arabella, her mother, who was also Chilo's primary caregiver, had recently . Nancy, who is also an [employer] at [employer], is now taking care of him at home with help from her family. Nancy reported that Chilo is receiving blood today and his labs will be rechecked tomorrow to see if he is improving. CM will continue to follow. ADVANCE DIRECTIVES:: Garland Paige- Legal Guardian Has patient been provided with information about the portal?: Yes Did the patient sign up for the portal?: Yes CODE STATUS:: DNR/DNI INSURANCE COVERAGE / FINANCIAL ISSUES:: [facility] CURRENT HOME/COMMUNITY SERVICES/EQUIPMENT:: Joshua has a 24 hour caregiver and he lives in her home. He has a wheelchair. Support services through Palliative Care with Dr. Wolf. PRIMARY CARE PHYSICIAN:: Pascual Johnson POTENTIAL DISCHARGE NEEDS:: Follow up with PCP and discharge plan of care PATIENT/FAMILY EDUCATION NEEDS:: Discharge plan, limitations, follow up plan, Ask Me Three ANTICIPATED BARRIERS TO DISCHARGE:: None identified at this time. TRANSPORTATION:: Anticipate via private vehicle with caregiver when ready. PLAN:: Chilo remains ICU level of care. Anticipate he will return home with his caregiver with no additional services. CM will continue to provide support to patient, caregiver and discharge planning considerations.
[2019-01-22 18:47] LABS: HCT 37.1 % (40.0-50.0); HGB 11.4 g/dL (13.5-17.5)
[2019-01-23] VITALS (18 sets, daily range): BP systolic 90–94; BP diastolic 47–53; PULSE 45–85; RESP 12; TEMP 36.9–37; O2SAT 96–98
[2019-01-23] MEDS: Acetaminophen 650 MG SUPP PR ×2 (06:27→13:08)
--- NOTE | 2019-01-23 07:55 | PHARADMIT ---
Admission Pharmacy Clinical Review GI Bleed Code Status DNR/DNI Current Weight Wgt- 29.3 kg Renally Cleared and Narrow Therapeutic Index Meds CrCl~53 mL/min Meds-OK QTc Value / Action Taken QTc-426 na BP Control, Fever BP-101/74 Tmax- 37.0C Electrolytes reviewed Na- 141 K+4.1 Mag-2.2 DVT Prophylaxis none. GI Bleed Opiate Usage / Scheduled Bowel Regimen Ordered No Yes Plt/SCr for Heparin / Enoxaparin Plts-647 SCr-0.80 INR for Warfarin na H/H stable, WBC/Bands H&H- 11.4/37.1 WBC-15.37 Antibiotic appropriateness none Cultures and Sensitivities none Surgical ABX d/c within 24 hr na DM control / Insulin Dosing BG-105 Heart Failure (Check EF%) (FESTUS's, B-Block, Diuretics) NONE IV to PO Switch No Home Meds Reviewed Yes Home Meds Not Ordered Epinephrine-IM, Multivites, Comments Tegretol Level- 9.3 (4-12)
[2019-01-23] MEDS: Docusate Sodium 100 MG CAP 200 MG PO ×2 (09:36→13:08)
[2019-01-23] MEDS: Polyethylene Glycol 3350 17 GM PACKET PO (09:36)
[2019-01-23] MEDS: Senna TAB 1 TAB PO (09:36)
[2019-01-23] MEDS: Gabapentin 800 MG TAB PO ×2 (09:37→13:08)
[2019-01-23 11:26] LABS: Abs Immature Grans 0.02 k/cumm (0.0-0.09); Absolute Basophil Count 0.03 k/cumm (0.0-0.2); Absolute Lymphocyte Count 1.39 k/cumm (1.2-3.4); Absolute Monocyte Count 0.55 k/cumm (0.11-0.7); Absolute Neutrophil Count 3.84 k/cumm (1.2-6.7); Basophils % 0.5; Eosinophils % 3.3; HCT 37.4 % (40.0-50.0); HGB 11.2 g/dL (13.5-17.5); Immature Grans % 0.3; Lymphocytes % 23.1; Mean Corp. HGB Concentration 29.9 g/dL (32.0-36.0); Mean Corpuscular Hemoglobin 22.7 pg (27.0-33.0); Mean Corpuscular Volume 75.9 fL (80-95); Mean Platelet Volume 9.7 fL (8.0-11.0); Monocytes % 9.1; Neutrophils % 63.7; Platelet Count 439 x1000/uL (130-400); RBC 4.93 m/cumm (4.50-6.00); RBC Distribution Width 18.8 % (11.8-14.1); White Blood Cell Count 6.03 k/cumm (4.4-10.8)
--- NOTE | 2019-01-23 11:28 | NUR.NOTE ---
Pt transferred from ICU to [facility] at 1115. Pt is alert but nonverbal. VVS were taking in ICU before transfer. Caregiver with pt. Awaiting Hgb level then possible discharge home is stable. Nursing Note:
[2019-01-23 11:58] LABS: Anion Gap 10.1 mmol/L (3-11); BUN 5 mg/dL (7-18); CO2 24.9 mmol/L (21.0-32.0); CREATININE 0.72 mg/dL (0.70-1.30); Calcium 9.1 mg/dL (8.5-10.1); Chloride 111 mmol/L (98-107); Glucose 77 mg/dL (70-100); Magnesium 2.2 mg/dL (1.8-2.4); Potassium 3.5 mmol/L (3.5-5.1); Sodium 146 mmol/L (136-145)
--- NOTE | 2019-01-23 12:39 | W.PM.DS.N ---
Date of service: 01/23/19 Time of Service: 12:39 DS: Diagnosis Discharge Diagnosis (1) Acute on chronic blood loss anemia: Status: Acute (2) Seizure: Status: Acute (3) GERD (gastroesophageal reflux disease): Status: Chronic Discharge Plan Disposition Patient Disposition: HOME Condition: Stable Discharge Details Chief Complaint: Seizure Clinical Impression: Acute anemia, Seizure, Acute GI bleeding, Acute hypokalemia Reason For Visit: GI BLEED Admit Date/Time: 01/22/19 00:06 Admit Provider: Bay Mccain Attending Provider: Bay Mccain Primary Care Provider: Pascual Johnson ED Provider: Leoncio Sandoval Hospital Course Hospital Course: Chief Complaint: Seizure, Anemia HPI: 33 year old man with a history of Cerebral Palsy, GERD, with Mckenzie's Esophagus s/p recent EGD with biopsies, admitted from [facility] Emergency Department on 01/22 following breakthrough Seizures and found to be significantly anemic. Mr. Holloway has a prior Medical History significant for Cerebral Palsy with severe Developmental Delay, Intracranial Hemorrhage as a small child, Hydrocephalus s/p SCIENTIFIC INFORMAT[employer] ANALYST Shunt with prior revision, Intractable Epilepsy on AEDs, and reported blindness. The patient has a full-time caregiver who works locally as an ICU Nurse. He was hospitalized in February of 2018 with what appeared to be sepsis based on a Urinary Infection, found to have multiple kidney stones, and underwent PCN tube placement via IR at [facility]. He has since undergone interventions with stent placement, stone evacuation, and stent removal. He is reported to have up to 2 seizures a month, but prior to his hospitalization he reportedly had 3 in one day. He had also been experiencing episodes of vomiting recently. The patient has known dysphagia and Mckenzie's Esophagus, and underwent an EGD at [facility] on 01/04/2019 showing changes consistent with BE s/p numerous biopsies, but with a normal appearing stomach and duodenum. Work-up in the ED showed no evidence of infection, specifically with a benign appearing urinalysis (small leuks but only 3-5 WBCs - no Growth X48 hours) - initial leukocytosis was thought reactive in the setting of seizure activity. However, Hgb was markedly lower than baseline at 7.8, and the patient tested heme + on stool. Imaging with CXR, Abdomen, Hip, and Pelvis Xray were negative. The patient was referred for admission for further evaluation and treatment. On the morning after admission Mr. Holloway'chun Hgb dropped to 5.9 necessitating a surgical consult. Surgery reported likely mild UGIB from prior biopsy sites after his EGD, and provider reported that the patient was heme negative approximately 1 month ago - repeat scope was not recommended. The patient underwent transfusion with 2 units of PRBCs, and was maintained on IV PPI and H2 osman. The patient's Hemoglobin remains stable this morning with an appropriate response following transfusion - Plan was for gradual advancement in diet with close monitoring of H/H, but Mr. Holloway's caregiver would like to take him home, stating that with his underlying CP and developmental delay he always does better in his home environment rather than the hospital. The patient is being tentaively discharged, with plans for repeat CBC tomorrow - as Mr. Holloway's caregiver is a nurse, she will also continue to serially check his stool for occult blood, and provide close follow-up with his PCP as an outpatient. He will also be discharged with supplemental iron/Vitamin C. Home Meds and New Rx's Prescriptions: New Patient's Own Medication 1 each PO BID Qty: 1 RF: 1 ranitidine HCl [Zantac] 150 mg tablet 150 mg PO BID Qty: 60 RF: 0 ferrous sulfate 325 mg (65 mg iron) tablet,delayed release (DR/EC) 325 mg PO BID Qty: 60 RF: 0 Continued clonazepam 0.5 mg tablet,disintegrating 0.5 mg PO ONCE PRN (Reason: seizures) Qty: 20 RF: 3 Desitin 13 % cream 1 applic TP BID-QID PRN (Reason: skin irritation) Qty: 454 RF: 1 sennosides [senna] 8.6 mg tablet 8.6 mg PO DAILY PRN (Reason: constipation) Qty: 90 RF: 3 gabapentin 800 mg tablet 800 mg PO TID Qty: 270 RF: 3 simethicone 80 mg tablet,chewable 80 mg PO AC Qty: 100 RF: 11 polyethylene glycol 3350 17 gram powder in packet 17 gm PO DAILY PRN (Reason: constipation) Qty: 90 RF: 3 carbamazepine [Tegretol XR] 400 mg tablet extended release 12 hr 400 mg PO BID Qty: 200 RF: 4 pantoprazole 40 mg tablet,delayed release (DR/EC) 40 mg PO BID Qty: 180 RF: 3 Vitamin B-6 50 mg capsule 50 mg PO DAILY Qty: 90 RF: 3 epinephrine 0.3 mg/0.3 mL auto-injector 0.3 mg IM ONCE Qty: 2 RF: 1 acetaminophen 650 mg suppository 650 mg DE Q4H PRN MDD 3000 mg Qty: 90 RF: 2 Pediatric Balanced Nutrition 0.03-1 gram-kcal/mL liquid 1 ml PO BID PRNQty: 60 RF: 11 bisacodyl 10 mg suppository 10 mg DE DAILY PRN (Reason: constipation) Qty: 12 RF: 2 sennosides [Senna Laxative] 8.6 mg tablet 8.6 mg PO BID Qty: 180 RF: 3 docusate sodium 100 mg capsule 100 - 200 mg PO TID Qty: 360 RF: 3 Lactobacillus acidophilus 100 million cell capsule 100 mmu cells PO TID PRN (Reason: diarrhea) Qty: 120 RF: 0 nystatin 15 GM powder 1 gm PRN PRNRF: 0 Perla Protect 142 GM cream 1 gm PRN PRNRF: 0 Discharge Instructions Additional Instructions: Please check stool for occult blood over the course of the next 2-3 days. Repeat blood work tomorrow. Continue Protonix, and start twice daily Ranitidine and iron supplements. Activity:: Activity as Tolerated Equipment/Supplies:: No Equipment Needed Diet:: As Tolerated Discharge Orders Discharge Orders: Discharge Order (Routine); Ordered 01/23/19 Ordered By: Zachariah Akers Other Ambulatory Orders: Hemoglobin/Hematocrit (Routine) Timeframe: 1 Day Location: None Selected Ordered By: Zachariah Akers DS: Summary Status at Discharge Functional status at discharge: bed bound Overall status at discharge: patient is back to baseline Mental Status: other (Baseline) Speech and Movement: other Mood: congruent mood and other (Baseline) Affect: other Exam Psych Mental Status: other (Baseline) Speech and Movement: other Mood: congruent mood and other (Baseline) Affect: other DS: Data Vitals/I&O Vitals and I&O: Vital Signs Temperature 36.9 C 01/23/19 08:28 Temperature Source Temporal Artery Scan 01/23/19 08:28 Pulse 56 L 01/23/19 08:32 Pulse 67 01/23/19 08:32 Respiratory Rate 12 01/23/19 08:28 Respiratory Effort Non-Labored 01/23/19 08:28 Respiratory Depth Normal 01/23/19 08:28 Respiratory Pattern Normal 01/23/19 08:28 Blood Pressure 94/47 L 01/23/19 08:32 Blood Pressure Mean 58 01/23/19 08:32 Blood Pressure Position Right Lateral 01/23/19 08:28 Pulse Oximetry 98 01/23/19 08:32 Oxygen Delivery Method Room Air 01/23/19 08:28 Oxygen Flow Rate 0 01/23/19 08:28 Pain Level 0 01/23/19 04:10 Intake & Output 01/22/19 01/23/19 01/23/19 23:59 11:59 23:59 Intake Total 1350 / 2497.917 1050 / 1050 Balance 1350 / 2497.917 1050 / 1050 Weight 29.3 kg Intake: IV 50 / 5293.784 9633 / 1050 Oral 600 / 600 Blood Product 600 / 600 Rbc Leuko Reduced Unit 300 / 300 [id number] Rbc Leuko Reduced Unit 300 / 300 [id number] Other 100 / 100 Rbc Leuko Reduced Unit 100 / 100 [id number] Other: Urine Color Yellow Urine Odor None Comment attends changed at this time incontinent again at this time. pt cleaned up and new attends applied Stool Occult Blood Negative Stool Size Large Stool Characteristics Soft Voiding Methods Diaper Data Completed and Pending Completed studies during hospitalization [Text1]: Exam(s) 01/21/2019 a RAD:XR abdomen flat & upright EXAM: XR ABDOMEN FLAT UPRIGHT INDICATION: projectile vomiting. COMPARISON: XR shunt series from 10/21/2018 TECHNIQUE: 2D digital imaging was performed. FINDINGS: SCIENTIFIC INFORMATICS ANALYST shunttubing is seen. There is a severe scoliosis as well as bilateral hip deformities. There is a moderate quantity of stool. No free air or bowel dilatation is seen. IMPRESSION: No acute abnormality. --------- Exam(s) a RAD:XR chest 2V PA & lateral EXAM: XR CHEST 2V PA LATERAL INDICATION: tachy, cough, seizure. COMPARISON: CT ABDOMEN PELVIS WO from 03/07/2018 XR CHEST 2V PA LATERAL from 11/30/2018 TECHNIQUE: 2D digital imaging was performed. FINDINGS: AP and lateral views were performed with the patient on a stretcher. The AP view is rotated. Shunt tubing is seen. Heart size is within normal limits. The lungs are suboptimally inflated. No infiltrate or effusion is seen. There is air fluid level seen on the lateral view corresponding to an air-fluid level in the esophagus. This was seen on the previous exam. IMPRESSION: Dilated esophagus, unchanged. No acute pulmonary abnormality is seen. --------- Exam(s) a RAD:XR hip & pelvis adult Bl EXAM: XR HIP PELVIS ADULT BL INDICATION: chronic hip pain and chronic dislocation, new pain. COMPARISON: No exams were available for comparison TECHNIQUE: 2D digital imaging was performed. FINDINGS: There are stable chronic deformities of both proximal femurs with bilateral hip dislocation, unchanged. The bones are osteoporotic. No fracture is visible. IMPRESSION: No acute abnormality. Labs on day of discharge: Labs from last 24 hours 01/23/19 01/23/19 01/22/19 11:10 11:10 18:35 WBC 6.03 RBC 4.93 Hgb 11.2 L 11.4 L D Hct 37.4 L 37.1 L D MCV 75.9 L MCH 22.7 L MCHC 29.9 L RDW 18.8 H Plt Count 439 H D MPV 9.7 Immature Gran % 0.3 Neutrophils % 63.7 Lymphocytes % 23.1 Monocytes % 9.1 Eosinophils % 3.3 Basophils % 0.5 Absolute Neutrophils 3.84 Absolute Lymphocytes 1.39 Absolute Monocytes 0.55 Absolute Eosinophils 0.20 Absolute Basophils 0.03 Sodium 146 H Potassium 3.5 Chloride 111 H Carbon Dioxide 24.9 Anion Gap 10.1 BUN 5 L Creatinine 0.72 Estimated GFR/1.73 m2 >= 60.00 Glucose 77 Calcium 9.1 Magnesium 2.2 Patient ABO/Rh Antibody Screen Crossmatch 01/22/19 01/22/19 12:00 00:25 WBC RBC Hgb Cancelled Hct Cancelled MCV MCH MCHC RDW Plt Count MPV Immature Gran % Neutrophils % Lymphocytes % Monocytes % Eosinophils % Basophils % Absolute Neutrophils Absolute Lymphocytes Absolute Monocytes Absolute Eosinophils Absolute Basophils Sodium Potassium Chloride Carbon Dioxide Anion Gap BUN Creatinine Estimated GFR/1.73 m2 Glucose Calcium Magnesium Patient ABO/Rh A Negative Antibody Screen Negative Crossmatch See Detail [facility] Medical History Anemia (Chronic) Anemia, chronic disease (Chronic 07/05/17) Aspiration pneumonia (Resolved) 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) EGD at [facility], GERD 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 Bowel and bladder incontinence (Chronic 01/28/14) Cerebral palsy (Chronic) Severe; 23.5 weeks GA; Spastic quadraplegia non verbal Epilepsy (Chronic 04/12/11) Focal epilepsy with impairment of consciousness, intractable (Chronic) GERD (gastroesophageal reflux disease) (Chronic) Hydrocephalus (Chronic 04/30/14) 2014 SCIENTIFIC INFORMATICS ANALYST shunt malfunction and new shunt inserted at [facility] Apr 2014 Hydronephrosis (Resolved ~02/2018) s/p R PCN 03/08/18 Hypernatremia (Resolved) Hypokalemia (Resolved) Idiopathic scoliosis (Chronic) Mental retardation (Chronic) non verbal incontinent bladder and bowel Pneumonia (Resolved) Right nephrolithiasis (Chronic) Seizure disorder (Chronic) Swallowing impaired (Chronic) Vitamin D deficiency (Chronic) Surgical History [employer] bilateral prox. femoral resections H/O nephrostomy (Acute) History of lung surgery (Acute) unknown; large scar on chest History of surgical procedure (Inactive) S/P ureteral stent placement (Acute ~06/28/18) 06/28/18 [facility]; LEFT-kb SHUNT SCIENTIFIC INFORMATICS ANALYST SHUNT; revision in 2014 Family History Mother , AGE 40 Cancer Father No problems noted. Sister Neoplasm Maternal Grandfather , AGE 73 Cancer Maternal Grandmother , AGE 77 Cancer Brother , MVA AGE 10 No problems noted. Social History Smoking/Tobacco Use Status: Never Alcohol Intake: never Drug use: Never Substance use type: does not use Caregiver/Support person: Yes Household members: caregiver Housing: house Number of Children: 0 Pets and animals: Yes Pets and animals: dog(s) Frequency: does not exercise Latonya/Amish: None Special latonya needs: No Seatbelt use: always Do you feel safe at home: Yes Do you feel safe in your relationship?: Yes
[2019-01-23] MEDS: Potassium Chloride Liquid 20 MEQ PKT 40 MEQ PO (13:08)
--- NOTE | 2019-01-23 15:32 | PDOC.CMDIS ---
LACE Index Scoring Tool - Questions: Length of Stay (in days): 1 Acuity (Admit via E.D.?): Yes E.D. Visits: 1 - Answers: Total Score: 5 Risk of Readmission: Low Risk Care Management Discharge Reason for Hospitalization: GI Bleed Discharge Plan: Gio will return home with his caregiver when medically cleared for discharge. Nancy will transport by wheel chair van. Patient/Family Education Needs: Discharge instructions
== END 2019-01-23 14:39 | disposition home or self-care (01) | DRG 812 ==
LOC: ER 01-22 00:38 → ICU 01-22 02:10 → MS 01-23 12:53 → ICU 01-28 16:13
PROVIDERS: Internal Medicine; Admitting Provider Internal Medicine; Emergency Provider Student in an Organized Health Care Education/Training Program; PCP Family Medicine; Visit Provider Internal Medicine
DX: D62 Acute posthemorrhagic anemia (principal); K92.2 Gastrointestinal hemorrhage, unspecified; G40.119 Localization-related (focal) (partial) symptomatic epilepsy and epileptic syndromes with simple partial seizures, intractable, without status epilepticus; K22.70 Barrett's esophagus without dysplasia; D63.8 Anemia in other chronic diseases classified elsewhere; K21.9 Gastro-esophageal reflux disease without esophagitis; G80.9 Cerebral palsy, unspecified; F79 Unspecified intellectual disabilities; Z87.440 Personal history of urinary (tract) infections; Z98.2 Presence of cerebrospinal fluid drainage device
CPT/HCPCS: 36415; 73521; 80048; 80053; 83690; 84145; 86850; 86900; 86901; 86920; 93005; 96361; 96365; 96366; 96368; 99223; 99232; 99238; 99253; 99285; 71046; 74019; 80156; 81003; 81015; 82728; 83540; 83550; 83735; 85014; 85018; 85025; 85045; 93010; J3480; P9016

== ENCOUNTER 2019-01-24 10:43 | Outpatient (CLI) | payer MEDICAID, SELFPAY ==
[2019-01-24 11:24] LABS: Anion Gap 10.9 mmol/L (3-11); BUN 10 mg/dL (7-18); CO2 26.1 mmol/L (21.0-32.0); Calcium 9.2 mg/dL (8.5-10.1); Chloride 108 mmol/L (98-107); Glucose 89 mg/dL (70-100); Potassium 3.9 mmol/L (3.5-5.1); Sodium 145 mmol/L (136-145)
[2019-01-24 11:29] LABS: Abs Immature Grans 0.01 k/cumm (0.0-0.09); Absolute Basophil Count 0.03 k/cumm (0.0-0.2); Absolute Eosinophil Count 0.19 k/cumm (0.0-0.7); Absolute Lymphocyte Count 1.41 k/cumm (1.2-3.4); Absolute Monocyte Count 0.68 k/cumm (0.11-0.7); Absolute Neutrophil Count 3.27 k/cumm (1.2-6.7); Basophils % 0.5; Eosinophils % 3.4; HCT 40.5 % (40.0-50.0); HGB 12.1 g/dL (13.5-17.5); Immature Grans % 0.2; Lymphocytes % 25.2; Mean Corp. HGB Concentration 29.9 g/dL (32.0-36.0); Mean Corpuscular Hemoglobin 22.5 pg (27.0-33.0); Mean Corpuscular Volume 75.3 fL (80-95); Mean Platelet Volume 9.7 fL (8.0-11.0); Monocytes % 12.2; Neutrophils % 58.5; Platelet Count 411 x1000/uL (130-400); RBC 5.38 m/cumm (4.50-6.00); RBC Distribution Width 20.5 % (11.8-14.1); White Blood Cell Count 5.59 k/cumm (4.4-10.8)
[2019-01-24 12:03] LABS: Diff Comment RBC Morph Reviewed
[2019-01-24 12:06] LABS: Anisocytosis 2+; Hypochromasia 1+; Microcytosis 1+
[2019-01-24 12:07] LABS: Poikilocytes 1+; Polychromasia Present
== END 2019-01-24 11:03 ==
PROVIDERS: PCP Family Medicine; Visit Provider Internal Medicine
DX: N39.0 Urinary tract infection, site not specified (principal); N17.9 Acute kidney failure, unspecified
CPT/HCPCS: 36415; 80048; 85025

== ENCOUNTER 2019-02-04 02:57 | Outpatient (RCR) | payer MEDICAID, SELFPAY ==
[2019-02-04] MEDS: IRON SUCROSE COMPLEX 200 MG in Normal Saline 100 ML 440 MG IVPB (10:18)
[2019-02-04] MEDS: Normal Saline Flush 10 ML SYR IVP (10:19)
[2019-02-04 11:37] LABS: HCT 37.7 % (40.0-50.0); Mean Corp. HGB Concentration 29.2 g/dL (32.0-36.0); Mean Corpuscular Hemoglobin 22.6 pg (27.0-33.0); Mean Corpuscular Volume 77.4 fL (80-95); Mean Platelet Volume 9.5 fL (8.0-11.0); Platelet Count 475 x1000/uL (130-400); RBC 4.87 m/cumm (4.50-6.00); RBC Distribution Width 21.9 % (11.8-14.1); White Blood Cell Count 6.61 k/cumm (4.4-10.8)
[2019-02-04 11:40] LABS: Anion Gap 8.2 mmol/L (3-11); BUN 11 mg/dL (7-18); CO2 27.8 mmol/L (21.0-32.0); CREATININE 0.69 mg/dL (0.70-1.30); Calcium 8.7 mg/dL (8.5-10.1); Chloride 103 mmol/L (98-107); Glucose 114 mg/dL (74-106); Potassium 3.8 mmol/L (3.5-5.1); Sodium 139 mmol/L (136-145)
== END 2019-02-13 23:59 | disposition home or self-care (01) ==
LOC: INF 02:57
PROVIDERS: PCP Family Medicine; Visit Provider Family Medicine
DX: D64.9 Anemia, unspecified (principal); R56.9 Unspecified convulsions
CPT/HCPCS: 36415; 80048; 85027; 96365; J1756

== ENCOUNTER 2019-02-23 15:22 | Emergency (ER) | payer MEDICAID, SELFPAY ==
[2019-02-23] VITALS (12 sets, daily range): BP systolic 102–119; BP diastolic 61–70; PULSE 67–107; RESP 14–19; TEMP 37.1; O2SAT 82–98
--- NOTE | 2019-02-23 15:59 | NUR.NOTE ---
Nursing Note: Permission to treat per [place] Dept of Health Guardian, Garland Royal. Protocol per Mr. Paige is that pt has history of seizures and if he has 3 in one day they are to bring him to the ED. [phone] call Mr. Paige with disposition. Elza Eller.
--- NOTE | 2019-02-23 16:20 | W.ED.GENAD ---
Discharge Plan Disposition Patient Disposition: HOME Condition: Improving Discharge Details Chief Complaint: Seizure Clinical Impression: Seizure Primary Care Provider: Pascual Johnson ED Provider: Drocas Hernandez Home Meds and New Rx's Prescriptions: No Action sennosides [senna] 8.6 mg tablet 8.6 mg PO DAILY PRN (Reason: constipation) RF: 0 docusate sodium 250 mg capsule 250 mg PO BID Qty: 180 RF: 3 docusate sodium 100 mg capsule 100 mg PO DAILY RF: 0 acetaminophen 650 mg suppository 650 mg IN TID MDD 3000 mg Qty: 270 RF: 3 acetaminophen 650 mg suppository 650 mg IN Q4H PRN (Reason: fever or pain) Qty: 100 RF: 0 famotidine 20 mg tablet 20 mg PO BID PRN (Reason: dyspepsia) Qty: 180 RF: 4 Lactobacillus acidophilus 100 million cell capsule 100 mmu cells PO DAILY RF: 0 Lactobacillus acidophilus 100 million cell capsule 100 mmu cells PO BID PRN (Reason: diarrhea) Qty: 180 RF: 3 pantoprazole 40 mg tablet,delayed release (DR/EC) 40 mg PO BID Qty: 180 RF: 3 metoclopramide HCl [Reglan] 10 mg tablet 10 mg PO DAILY Qty: 90 RF: 3 Vitamin B-6 50 mg capsule 50 mg PO DAILY Qty: 90 RF: 3 (DME) Mepilex 4 X 4 bandage See Rx Instructions .ROUTE .MEDSUPPLY Qty: 360 RF: 3 clonazepam 0.5 mg tablet,disintegrating 0.5 mg PO ONCE PRN (Reason: seizures) Qty: 20 RF: 3 Desitin 13 % cream 1 applic TP BID-QID PRN (Reason: skin irritation) Qty: 454 RF: 1 gabapentin 800 mg tablet 800 mg PO TID Qty: 270 RF: 3 simethicone 80 mg tablet,chewable 80 mg PO AC Qty: 100 RF: 11 polyethylene glycol 3350 17 gram powder in packet 17 gm PO DAILY PRN (Reason: constipation) Qty: 90 RF: 3 carbamazepine [Tegretol XR] 400 mg tablet extended release 12 hr 400 mg PO BID Qty: 200 RF: 4 epinephrine 0.3 mg/0.3 mL auto-injector 0.3 mg IM ONCE Qty: 2 RF: 1 Pediatric Balanced Nutrition 0.03-1 gram-kcal/mL liquid 1 ml PO BID PRNQty: 60 RF: 11 bisacodyl 10 mg suppository 10 mg IN DAILY PRN (Reason: constipation) Qty: 12 RF: 2 sennosides [Senna Laxative] 8.6 mg tablet 8.6 mg PO BID Qty: 180 RF: 3 nystatin 100,000 unit/gram cream 1 applic TP BID PRN (Reason: intertrigo) Qty: 30 RF: 5 folic acid 1 mg tablet 1 mg PO DAILY Qty: 90 RF: 3 Perla Protect 142 GM cream 1 gm PRN PRNRF: 0 Patient's Own Medication 1 each PO BID Qty: 1 RF: 1 Discharge Instructions Instructions: Recurrent Seizures in Adults (ED) Additional Instructions: Observe closely for any changes from baseline. Urine culture pending. Follow-up in 3 to 5 days. We will call for any abnormal results. Recheck with PCP next 2 to 3 days Continue Tegretol. Return for any worsening or concerns sooner if needed Medical Decision Making This 33-year-old patient with a history of cerebral palsy, cerebral hemorrhage, strokes, chronic anemia, blind who is wheelchair-bound. Patient is nonverbal. Patient with known epilepsy. Patient typically will have 2 seizures every month. Seizures are typically back to back. Patient is on twice daily Tegretol for seizure management. Patient had a typical pattern of his seizures initial seizure followed by a period of him rocking and a second seizure followed by again a period of rocking however today he had a third seizure. Per his care plan when he has a third seizure he is to have a medical evaluation as 2 seizures is very typical for the patient but when having a third occasionally he will have urinary tract infections or developing anemia. Yesterday patient was having a good day and his baseline, he was quite active. Plan of care includes checking baseline labs as well as urinalysis. Patient does have a normal pressure hydrocephalus and a FURNITURE TECHNICIAN shunt in place. Discussed CT of the head and imaging of his shunt however the caregiver reports that they have not routinely done that when he is having a seizure because his typical presentation of FURNITURE TECHNICIAN shunt dysfunction includes lethargy and vomiting neither which he has had recently. After discussion with the port steward at the bedside we will initially screen this patient for labs and urinalysis and if patient is not waking normally from his postictal stays will plan to CT head and image FURNITURE TECHNICIAN shunt. Caregiver agrees with plan of care. Caregiver at the bedside is an ICU nurse who seems to know the patient well Patient noted to have mild leukocytosis with left shift in addition to urinalysis which reveals small leukocyte esterase as well as 10-20 white blood cells on a catheter urine. Have discussed this with the port steward. I do feel it is appropriate to potentially treat this urinary infection however port steward is very familiar with the patient and reports recently patient has been treated with antibiotics with a similar urinalysis and ultimately urine culture was unremarkable patient had significant side effects secondary to antibiotics in addition to developing fungal infections. Preference at this time is to avoid antibiotic treatment pending urine culture. Health Care Specialist is very familiar with the risks of deferring antibiotic treatment but prefers to defer antibiotic treatment at this time. Reviewed patient's imaging from [facility] and most recent shunt series is noted to be in 2016. Offered imaging of head including CT of head to rule out any normal pressure hydrocephalus or ventricular size change and FURNITURE TECHNICIAN shunt series however port steward feels that it is unlikely that the FURNITURE TECHNICIAN shunt is dysfunctioning as yesterday patient was at his baseline. Patient at this time is beginning to improve from his postictal state, is taking some food at the bedside is playfully head bobbing to music which he enjoys. Health Care Specialist preference is discharged at this time with close observation and return for any worsening. Encourage close follow-up with PCP. The patient was stable and requested discharge. Prior to discharge, my usual and customary return precautions were reviewed with the patient - this included follow-up instructions and reasons to return to the Emergency Department if conditions worsens, does not improve as expected, or other new concerns arise. HPI General Date/Time Provider Initiated Documentation: 02/23/19 15:42. HPI Narrative: 33-year-old patient with a medical history of cerebral hemorrhage and subsequent strokes as well as normal pressure hydrocephalus with a FURNITURE TECHNICIAN shunt in place. Patient with a known seizure disorder. Patient with hip dysplasia, blind, history of cerebral palsy. Patient presents today after having 3 seizures at home. Patient's baseline is reported that he can have 2 seizures typically monthly but per Joseph care plan and protocol if he has a third seizure typically he will have medical evaluation as this is somewhat indicated of of abnormal pattern. Patient was very active and baseline yesterday. No reported fevers or chills. Chronic cough unchanged. Has been taking fluids without difficulty. Health Care Specialist at the bedside reports recently if he has had a third seizure they have noted urinary tract infections or anemia. Patient's seizure disorder is managed with Tegretol twice daily. Caregiver reports that his FURNITURE TECHNICIAN shunt was last imaged approximately 1 year ago. Patient has had no recent lethargy, nausea or vomiting which is typical of his FURNITURE TECHNICIAN shunt dysfunctioning. Patient currently is seemingly in a postictal phase as he is lethargic. Per caregiver this is a very typical presentation she reportedly would not have brought him in if it were not per the protocol. Related Data Home Medications Medication Instructions Recorded Confirmed Perla Protect 1 gm PRN PRN 05/31/17 02/23/19 clonazepam 0.5 mg disintegrating 0.5 mg PO ONCE PRN #20 tab 06/16/18 02/23/19 tablet epinephrine 0.3 mg/0.3 mL 0.3 mg IM ONCE #2 pen 07/17/18 02/23/19 injection, auto-injector pedi nutrition,iron,lact-free 0.03 1 ml PO BID PRN #60 ml 11/06/18 02/23/19 gram-1 kcal/mL oral liquid zinc oxide 13 % topical cream 1 applic TP BID-QID PRN #454 gm 11/06/18 02/23/19 bisacodyl 10 mg rectal suppository 10 mg IN DAILY PRN #12 each 11/24/18 02/23/19 Tegretol XR 400 mg tablet,extended 400 mg PO BID #200 tab-cap NS 12/02/18 02/23/19 release gabapentin 800 mg tablet 800 mg PO TID #270 tab 12/02/18 02/23/19 polyethylene glycol 3350 17 gram 17 gm PO DAILY PRN #90 each 12/02/18 02/23/19 oral powder packet simethicone 80 mg chewable tablet 80 mg PO AC #100 tab.chew 12/02/18 02/23/19 sennosides 8.6 mg tablet 8.6 mg PO BID #180 tab 12/23/18 02/23/19 Patient's Own Medication 1 each PO BID #1 % 01/23/19 02/17/19 nystatin 100,000 unit/gram topical 1 applic TP BID PRN #30 gm 02/02/19 02/23/19 cream Lactobacillus acidophilus 100 100 mmu cells PO BID PRN #180 cap 02/17/19 02/23/19 million cell capsule Lactobacillus acidophilus 100 100 mmu cells PO DAILY cap 02/17/19 02/23/19 million cell capsule acetaminophen 650 mg rectal 650 mg IN Q4H PRN #100 each 02/17/19 02/23/19 suppository acetaminophen 650 mg rectal 650 mg IN TID #270 supp MDD 3000 mg 02/17/19 02/23/19 suppository docusate sodium 100 mg capsule 100 mg PO DAILY cap 02/17/19 02/23/19 docusate sodium 250 mg capsule 250 mg PO BID #180 cap 02/17/19 02/23/19 famotidine 20 mg tablet 20 mg PO BID PRN #180 tab 02/17/19 02/17/19 foam bandage 4 X 4 #360 each 02/17/19 02/23/19 metoclopramide HCl 10 mg tablet 10 mg PO DAILY #90 tab 02/17/19 02/23/19 pantoprazole 40 mg tablet,delayed 40 mg PO BID #180 tab-cap 02/17/19 02/23/19 release pyridoxine (vitamin B6) 50 mg 50 mg PO DAILY #90 cap 02/17/19 02/23/19 capsule sennosides 8.6 mg tablet 8.6 mg PO DAILY PRN tab 02/17/19 02/17/19 folic acid 1 mg tablet 1 mg PO DAILY #90 tab 02/19/19 02/23/19 Previous Rx's Medication Instructions Recorded clonazepam 0.5 mg disintegrating 0.5 mg PO ONCE PRN #20 tab 06/16/18 tablet epinephrine 0.3 mg/0.3 mL 0.3 mg IM ONCE #2 pen 07/17/18 injection, auto-injector zinc oxide 13 % topical cream 1 applic TP BID-QID PRN #454 gm 11/06/18 bisacodyl 10 mg rectal suppository 10 mg IN DAILY PRN #12 each 11/24/18 Tegretol XR 400 mg tablet,extended 400 mg PO BID #200 tab-cap NS 12/02/18 release gabapentin 800 mg tablet 800 mg PO TID #270 tab 12/02/18 polyethylene glycol 3350 17 gram 17 gm PO DAILY PRN #90 each 12/02/18 oral powder packet simethicone 80 mg chewable tablet 80 mg PO AC #100 tab.chew 12/02/18 sennosides 8.6 mg tablet 8.6 mg PO BID #180 tab 12/23/18 Patient's Own Medication 1 each PO BID #1 % 01/23/19 nystatin 100,000 unit/gram topical 1 applic TP BID PRN #30 gm 02/02/19 cream Lactobacillus acidophilus 100 100 mmu cells PO BID PRN #180 cap 02/17/19 million cell capsule acetaminophen 650 mg rectal 650 mg IN Q4H PRN #100 each 02/17/19 suppository acetaminophen 650 mg rectal 650 mg IN TID #270 supp MDD 3000 mg 02/17/19 suppository docusate sodium 250 mg capsule 250 mg PO BID #180 cap 02/17/19 famotidine 20 mg tablet 20 mg PO BID PRN #180 tab 02/17/19 foam bandage 4 X 4 #360 each 02/17/19 metoclopramide HCl 10 mg tablet 10 mg PO DAILY #90 tab 02/17/19 pantoprazole 40 mg tablet,delayed 40 mg PO BID #180 tab-cap 02/17/19 release pyridoxine (vitamin B6) 50 mg 50 mg PO DAILY #90 cap 02/17/19 capsule folic acid 1 mg tablet 1 mg PO DAILY #90 tab 02/19/19 Allergies Allergy/AdvReac Type Severity Reaction Status Date / Time latex Allergy Severe ANAPHYLAXIS Unverified 02/23/19 15:51 venom-honey bee Allergy Unknown Unverified 02/23/19 15:51 adhesive tape AdvReac Severe irritation, Verified 02/23/19 15:51 rash heparin AdvReac Severe GI BLEED Verified 02/23/19 15:51 NSAIDS (Non-Steroidal AdvReac Intermediate GI BLEED Verified 02/23/19 15:51 Anti-Inflamma ferrous sulfate AdvReac Verified 02/23/19 15:51 General Stated Complaint: Seizure JUANJO: 3 Review of Systems All systems reviewed & are unremarkable except as noted in HPI and below Constitutional Constitutional: Denies fever(s) and Denies poor appetite Respiratory Respiratory: Reports cough Gastrointestinal Gastrointestinal: Denies diarrhea, Denies nausea and Denies vomiting PFSH Medical History Anemia (Chronic) Anemia, chronic disease (Chronic 09/18/16) Aspiration pneumonia (Resolved) 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) EGD at [facility] [place], GERD 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 Bowel and bladder incontinence (Chronic 01/28/14) Cerebral palsy (Chronic) Severe; 23.5 weeks GA; Spastic quadraplegia non verbal Epilepsy (Chronic 04/12/11) Focal epilepsy with impairment of consciousness, intractable (Chronic) GERD (gastroesophageal reflux disease) (Chronic) Hydrocephalus (Chronic 04/30/14) 2014 FURNITURE TECHNICIAN shunt malfunction and new shunt inserted at [facility] [place] Apr 2014 Hydronephrosis (Resolved ~02/2018) s/p R PCN 03/08/18 Hypernatremia (Resolved) Hypokalemia (Resolved) Idiopathic scoliosis (Chronic) Mental retardation (Chronic) non verbal incontinent bladder and bowel Pneumonia (Resolved) Right nephrolithiasis (Chronic) Seizure disorder (Chronic) Swallowing impaired (Chronic) Vitamin D deficiency (Chronic) Family History (Updated 02/18/19 @ 11:04 by Lei Lee) Mother , AGE 40 Cancer Father No problems noted. Sister Cancer Maternal Grandfather , AGE 73 Cancer Maternal Grandmother , AGE 77 Cancer Brother , MVA AGE 10 No problems noted. Social History Smoking/Tobacco Use Status: Never Alcohol Intake: never Drug use: Never Substance use type: does not use Caregiver/Support person: Yes Household members: caregiver Housing: house Number of Children: 0 Pets and animals: Yes Pets and animals: dog(s) Sexually active: No What is your relationship status?: never How often do you talk on the phone with friends or family?: never How often do you get together with friends or relatives?: decline to answer How often do you attend amish or temple services?: decline to answer Do you belong to any clubs or organized social groups?: decline to answer Panel score (0-1 are the most socially isolated patients): 0 What type of physical activity do you participate in: other Details: bouncing Duration: < 15 minutes/day Latonya/Anabaptist: None Special latonya needs: No Seatbelt use: always Drive intox or ride w/intox electric pile driver operator: No Do you feel safe at home: Yes Do you feel safe in your relationship?: Yes Exam Narrative Exam Narrative: CONST: Postictal, lethargic. HENMT: Head nomocephalic, normal to inspection. Atraumatic. Hearing grossly normal. TMs appear normal bilaterally. Limited exam of the mouth but no obvious pharyngeal erythema noted. EYES: General normal appearance. Alignment normal. Eyelids normal. Conjunctiva normal. NECK: Normal visual inspection. FROM. Trachea midline. No Midline tenderness. CHEST: Normal insepection of the chest. RESP: Normal respiratory effort. Speaking full sentences. No cough. No audible wheezing. No retractions. Breath sounds are equal bilaterally. No obvious rales or rhonchi CARDIO: No JVD. No murmurs or rubs, regular rate and rhythm MUSCULOSKELETAL: Patient with contracted lower extremities, atrophied legs SKIN: Normal. Dry. No rashes. Course Vital Signs Vital signs: Vital Signs Temperature 37.1 C 02/23/19 15:44 Pulse 101 H 02/23/19 15:44 Respiratory Rate 16 02/23/19 15:44 Blood Pressure 102/61 02/23/19 15:44 Pulse Oximetry 94 L 02/23/19 15:44 Temperature 37.1 C 02/23/19 15:44 Temperature Source Skin 02/23/19 15:44 Pulse 101 H 02/23/19 15:44 Respiratory Rate 16 02/23/19 15:44 Respiratory Effort 02/23/19 15:44 Blood Pressure 102/61 02/23/19 15:44 Blood Pressure Position Sitting 02/23/19 15:44 Pulse Oximetry 94 L 02/23/19 15:44 Oxygen Delivery Method Room Air 02/23/19 15:44 Oxygen Flow Rate 0 02/23/19 15:44 Pain Level 0 02/23/19 15:44
[2019-02-23 16:49] LABS: Abs Immature Grans 0.04 k/cumm (0.0-0.09); Absolute Eosinophil Count 0.07 k/cumm (0.0-0.7); Absolute Lymphocyte Count 0.86 k/cumm (1.2-3.4); Basophils % 0.2; Eosinophils % 0.5; HCT 37.4 % (40.0-50.0); HGB 11.4 g/dL (13.5-17.5); Immature Grans % 0.3; Lymphocytes % 6.6; Mean Corp. HGB Concentration 30.5 g/dL (32.0-36.0); Mean Corpuscular Hemoglobin 24.5 pg (27.0-33.0); Mean Corpuscular Volume 80.3 fL (80-95); Mean Platelet Volume 9.6 fL (8.0-11.0); Monocytes % 5.1; Neutrophils % 87.3; Platelet Count 440 x1000/uL (130-400); RBC 4.66 m/cumm (4.50-6.00); RBC Distribution Width 23.5 % (11.8-14.1); White Blood Cell Count 13.03 k/cumm (4.4-10.8)
[2019-02-23 16:57] LABS: Bilirubin Negative (Negative); Blood Negative (Negative); Clarity Sl Cloudy (Clear); Glucose Negative (Negative); Ketones Negative (Negative); Leukocyte Esterase Small (Negative); Nitrite Negative (Negative); Specific Gravity 1.015 (1.005-1.025); Urobilinogen 0.2 EU/dL (Up TO 0.2); pH 8.5 (5-8)
[2019-02-23 17:00] LABS: Absolute Basophil Count 0.03 k/cumm (0.0-0.2); Absolute Monocyte Count 0.66 k/cumm (0.11-0.7); Absolute Neutrophil Count 11.38 k/cumm (1.2-6.7)
[2019-02-23 17:06] LABS: ALT 25 U/L (16-63); AST 15 U/L (15-37); Albumin 3.1 g/dL (3.4-5.0); Alkaline Phosphatase 102 U/L (46-116); Anion Gap 7.6 mmol/L (3-11); BUN 17 mg/dL (7-18); Bilirubin, Total 0.2 mg/dL (0.2-1.0); CO2 30.4 mmol/L (21.0-32.0); CREATININE 0.93 mg/dL (0.70-1.30); Calcium 8.9 mg/dL (8.5-10.1); Chloride 103 mmol/L (98-107); Glucose 102 mg/dL (74-106); Potassium 3.9 mmol/L (3.5-5.1); Sodium 141 mmol/L (136-145)
[2019-02-23 17:07] LABS: TROPONIN-I 9.9 ug/mL (4.0-12.0)
[2019-02-23 17:21] LABS: Bacteria Negative HPF (Negative); C & S Indicated? Yes; Casts Negative LPF (Negative); Crystals Moderate Amorphous HPF (Negative); Epithelial Cells Negative HPF (Negative); Mucus Negative (Negative); RBC Negative HPF (0-2)
[2019-02-23 17:24] LABS: Diff Comment RBC Morph Reviewed
[2019-02-23 17:25] LABS: Anisocytosis 2+; Hypochromasia 1+
[2019-02-23] MEDS: Normal Saline 1,000 ML 500 ML IV (17:26)
== END 2019-02-23 19:05 | disposition home or self-care (01) ==
PROVIDERS: Emergency Provider Physician Assistant; PCP Family Medicine
DX: G40.909 Epilepsy, unspecified, not intractable, without status epilepticus (principal); G80.9 Cerebral palsy, unspecified; Z99.3 Dependence on wheelchair; G91.2 (Idiopathic) normal pressure hydrocephalus; Z98.2 Presence of cerebrospinal fluid drainage device
CPT/HCPCS: 36415; 80053; 96360; 99284; 80156; 81003; 81015; 85025; 87086

== ENCOUNTER 2019-03-04 00:46 | Outpatient (RCR) | payer MEDICAID, SELFPAY ==
[2019-02-17] MEDS: IRON SUCROSE COMPLEX 200 MG in Normal Saline 100 ML 440 MG IVPB (14:07)
[2019-02-17] MEDS: Normal Saline Flush 10 ML SYR IVP (14:07)
[2019-02-17 15:08] LABS: Abs Immature Grans 0.02 k/cumm (0.0-0.09); Absolute Basophil Count 0.03 k/cumm (0.0-0.2); Absolute Eosinophil Count 0.38 k/cumm (0.0-0.7); Absolute Lymphocyte Count 1.97 k/cumm (1.2-3.4); Absolute Monocyte Count 0.79 k/cumm (0.11-0.7); Absolute Neutrophil Count 7.16 k/cumm (1.2-6.7); Basophils % 0.3; Eosinophils % 3.7; HCT 40.7 % (40.0-50.0); HGB 12.3 g/dL (13.5-17.5); Immature Grans % 0.2; Mean Corp. HGB Concentration 30.2 g/dL (32.0-36.0); Mean Corpuscular Hemoglobin 24.1 pg (27.0-33.0); Mean Corpuscular Volume 79.8 fL (80-95); Mean Platelet Volume 9.8 fL (8.0-11.0); Monocytes % 7.6; Neutrophils % 69.2; Platelet Count 525 x1000/uL (130-400); RBC Distribution Width 23.3 % (11.8-14.1); White Blood Cell Count 10.35 k/cumm (4.4-10.8)
[2019-02-17 15:26] LABS: Diff Comment RBC Morph Reviewed
[2019-02-17 15:27] LABS: Anisocytosis 2+; Hypochromasia 2+; Microcytosis 2+; Poikilocytes 2+
[2019-02-17 16:07] LABS: Anion Gap 10.8 mmol/L (3-11); BUN 15 mg/dL (7-18); CO2 27.2 mmol/L (21.0-32.0); CREATININE 0.63 mg/dL (0.70-1.30); Calcium 9.3 mg/dL (8.5-10.1); Chloride 103 mmol/L (98-107); Glucose 83 mg/dL (74-106); Potassium 3.8 mmol/L (3.5-5.1); Sodium 141 mmol/L (136-145)
[2019-02-17 16:51] LABS: Folate 3.9 ng/mL (8.6-20.0); Vitamin B12 721 pg/mL (193-986)
[2019-02-22] MEDS: Normal Saline Flush 10 ML SYR IVP (10:50)
[2019-02-22] MEDS: IRON SUCROSE COMPLEX 200 MG in Normal Saline 100 ML 440 MG IVPB (10:50)
[2019-03-04] MEDS: IRON SUCROSE COMPLEX 200 MG in Normal Saline 100 ML 440 MG IVPB (11:01)
[2019-03-04] MEDS: Normal Saline Flush 10 ML SYR IVP (11:01)
[2019-03-04 12:44] LABS: HCT 37.8 % (40.0-50.0); HGB 11.6 g/dL (13.5-17.5)
[2019-03-11] MEDS: IRON SUCROSE COMPLEX 200 MG in Normal Saline 100 ML 400 MG IVPB (11:15)
[2019-03-11] MEDS: Normal Saline Flush 10 ML SYR IVP (11:30)
== END 2019-03-16 23:59 | disposition home or self-care (01) ==
LOC: INF 00:46
PROVIDERS: PCP Family Medicine; Visit Provider Family Medicine
DX: D64.9 Anemia, unspecified (principal)
CPT/HCPCS: 36415; 80048; 96365; 82607; 82746; 85014; 85018; 85025; J1756

== ENCOUNTER 2019-03-19 09:16 | Day surgery (SDC) | payer MEDICAID, SELFPAY ==
[2019-03-19] VITALS (7 sets, daily range): BP systolic 93–110; BP diastolic 51–68; PULSE 61–76; RESP 10–16; TEMP 36.6–37.1; O2SAT 95–99
[2019-03-19] MEDS: Lactated Ringers 1,000 ML 80 ML IV ×3 (10:17→14:06)
--- NOTE | 2019-03-19 10:41 | W.PM.DSUDISC ---
Discharge Plan Disposition Patient Disposition: HOME Condition: Stable Discharge Details Reason For Visit: DENTAL Attending Provider: Kenya Robins Primary Care Provider: Pascual Johnson Home Meds and New Rx's Prescriptions: No Action sennosides [senna] 8.6 mg tablet 8.6 mg PO DAILY PRN (Reason: constipation) RF: 0 docusate sodium 250 mg capsule 250 mg PO BID Qty: 180 RF: 3 docusate sodium 100 mg capsule 100 mg PO DAILY RF: 0 acetaminophen 650 mg suppository 650 mg GA TID MDD 3000 mg Qty: 270 RF: 3 acetaminophen 650 mg suppository 650 mg GA Q4H PRN (Reason: fever or pain) Qty: 100 RF: 0 famotidine 20 mg tablet 20 mg PO BID PRN (Reason: dyspepsia) Qty: 180 RF: 4 Lactobacillus acidophilus 100 million cell capsule 100 mmu cells PO DAILY RF: 0 Lactobacillus acidophilus 100 million cell capsule 100 mmu cells PO BID PRN (Reason: diarrhea) Qty: 180 RF: 3 pantoprazole 40 mg tablet,delayed release (DR/EC) 40 mg PO BID Qty: 180 RF: 3 metoclopramide HCl [Reglan] 10 mg tablet 10 mg PO DAILY Qty: 90 RF: 3 Vitamin B-6 50 mg capsule 50 mg PO DAILY Qty: 90 RF: 3 (DME) Mepilex 4 X 4 bandage See Rx Instructions .ROUTE .MEDSUPPLY Qty: 360 RF: 3 clonazepam 0.5 mg tablet,disintegrating 0.5 mg PO ONCE PRN (Reason: seizures) Qty: 20 RF: 3 Desitin 13 % cream 1 applic TP BID-QID PRN (Reason: skin irritation) Qty: 454 RF: 1 gabapentin 800 mg tablet 800 mg PO TID Qty: 270 RF: 3 simethicone 80 mg tablet,chewable 80 mg PO AC Qty: 100 RF: 11 polyethylene glycol 3350 17 gram powder in packet 17 gm PO DAILY PRN (Reason: constipation) Qty: 90 RF: 3 carbamazepine [Tegretol XR] 400 mg tablet extended release 12 hr 400 mg PO BID Qty: 200 RF: 4 epinephrine 0.3 mg/0.3 mL auto-injector 0.3 mg IM ONCE Qty: 2 RF: 1 Pediatric Balanced Nutrition 0.03-1 gram-kcal/mL liquid 1 ml PO BID PRNQty: 60 RF: 11 bisacodyl 10 mg suppository 10 mg GA DAILY PRN (Reason: constipation) Qty: 12 RF: 2 sennosides [Senna Laxative] 8.6 mg tablet 8.6 mg PO BID Qty: 180 RF: 3 nystatin 100,000 unit/gram cream 1 applic TP BID PRN (Reason: intertrigo) Qty: 30 RF: 5 folic acid 1 mg tablet 1 mg PO DAILY Qty: 90 RF: 3 melatonin 5 mg capsule 5 mg PO HS Qty: 90 RF: 3 Perla Protect 142 GM cream 1 gm PRN PRNRF: 0 Patient's Own Medication 1 each PO BID Qty: 1 RF: 1 Discharge Instructions Stand Alone Forms: Manjit Post-Op Dental Activity:: Activity as Tolerated Diet:: Other DS: Diagnosis Discharge Diagnosis (1) Dental caries extending into dentin: Start date: 03/19/19 Start time: 10:41 Status: Acute (2) Anxiety in acute stress reaction: Start date: 03/19/19 Start time: 10:42 Status: Acute
[2019-03-19] MEDS: Acetaminophen 650 MG SUPP (13:33)
--- NOTE | 2019-03-19 13:44 | W.PM.OP ---
Date of service: 03/19/19 Time of Service: 13:44 Operative Note Operative Note DATE OF PROCEDURE: 03/19/19 PRE-OP DIAGNOSIS: dental caries, acute situational anxiety POST-OP DIAGNOSIS: other Post dental rehabilitation under general anesthesia SURGEON: Kenya Robins ANESTHESIA: FERNANDO ESTIMATED BLOOD LOSS: 15 PATHOLOGY: none sent COMPLICATIONS: None Patient was transported to: PACU Patient's condition: stable Indications: This is a 33 year old male whose previous dental exam was completed on 12/10/18 in the pediatric dental clinic. ?The lack of cooperative ability and extent of rehabilitation precluded treatment on an outpatient basis. Procedure Description: The patient was brought to the operating room in a supine position. ?IV induction was performed and a lacted ringers solution was initiated in the left upper arm. ?A nasotracheal intubation tube was placed in the left nares. The intubation procedure was atraumatic and resulted in a satisfactory level of anesthesia. ? 4 bitewing and 14 periapical intraoral radiographs were taken for diagnostic purposes and reviewed. ?The patient was properly draped for the procedure and 1 throat pack was placed at 11:54 am . The oral cavity was disinfected with chlorhexidine and a toothbrush. ?A thorough dental prophylaxis and scaling and root planning was performed. ? The oral cavity was then thoroughly irrigated with sterile water and disinfected with chlorhexidine, suctioned clear. ?A topical application of 5% neutral sodium fluoride varnish was applied. ?The throat pack was removed at 1:26 pm . Approximately 1600 mL of lactated ringers was delivered as intraoperative fluids. The patient was extubated in the operating room and brought to the recovery room breathing spontaneously and in satisfactory condition. Attestation Statement: I was present and assisting for the entire procedure.
--- NOTE | 2019-03-19 13:58 | W.PM.DSUDISC ---
Discharge Plan Disposition Patient Disposition: HOME Condition: Stable Discharge Details Reason For Visit: DENTAL Attending Provider: Kenya Robins Primary Care Provider: Pascual Johnson Home Meds and New Rx's Prescriptions: No Action sennosides [senna] 8.6 mg tablet 8.6 mg PO DAILY PRN (Reason: constipation) RF: 0 docusate sodium 250 mg capsule 250 mg PO BID Qty: 180 RF: 3 docusate sodium 100 mg capsule 100 mg PO DAILY RF: 0 acetaminophen 650 mg suppository 650 mg LA TID MDD 3000 mg Qty: 270 RF: 3 acetaminophen 650 mg suppository 650 mg LA Q4H PRN (Reason: fever or pain) Qty: 100 RF: 0 famotidine 20 mg tablet 20 mg PO BID PRN (Reason: dyspepsia) Qty: 180 RF: 4 Lactobacillus acidophilus 100 million cell capsule 100 mmu cells PO DAILY RF: 0 Lactobacillus acidophilus 100 million cell capsule 100 mmu cells PO BID PRN (Reason: diarrhea) Qty: 180 RF: 3 pantoprazole 40 mg tablet,delayed release (DR/EC) 40 mg PO BID Qty: 180 RF: 3 metoclopramide HCl [Reglan] 10 mg tablet 10 mg PO DAILY Qty: 90 RF: 3 Vitamin B-6 50 mg capsule 50 mg PO DAILY Qty: 90 RF: 3 (DME) Mepilex 4 X 4 bandage See Rx Instructions .ROUTE .MEDSUPPLY Qty: 360 RF: 3 clonazepam 0.5 mg tablet,disintegrating 0.5 mg PO ONCE PRN (Reason: seizures) Qty: 20 RF: 3 Desitin 13 % cream 1 applic TP BID-QID PRN (Reason: skin irritation) Qty: 454 RF: 1 gabapentin 800 mg tablet 800 mg PO TID Qty: 270 RF: 3 simethicone 80 mg tablet,chewable 80 mg PO AC Qty: 100 RF: 11 polyethylene glycol 3350 17 gram powder in packet 17 gm PO DAILY PRN (Reason: constipation) Qty: 90 RF: 3 carbamazepine [Tegretol XR] 400 mg tablet extended release 12 hr 400 mg PO BID Qty: 200 RF: 4 epinephrine 0.3 mg/0.3 mL auto-injector 0.3 mg IM ONCE Qty: 2 RF: 1 Pediatric Balanced Nutrition 0.03-1 gram-kcal/mL liquid 1 ml PO BID PRNQty: 60 RF: 11 bisacodyl 10 mg suppository 10 mg LA DAILY PRN (Reason: constipation) Qty: 12 RF: 2 sennosides [Senna Laxative] 8.6 mg tablet 8.6 mg PO BID Qty: 180 RF: 3 nystatin 100,000 unit/gram cream 1 applic TP BID PRN (Reason: intertrigo) Qty: 30 RF: 5 folic acid 1 mg tablet 1 mg PO DAILY Qty: 90 RF: 3 melatonin 5 mg capsule 5 mg PO HS Qty: 90 RF: 3 Perla Protect 142 GM cream 1 gm PRN PRNRF: 0 Patient's Own Medication 1 each PO BID Qty: 1 RF: 1 Discharge Instructions Stand Alone Forms: Manjit Post-Op Dental Activity:: Activity as Tolerated Diet:: Other Discharge Orders Discharge Orders: Discharge Order (Routine); Ordered 03/19/19 Ordered By: Kenya Robins DS: Diagnosis Discharge Diagnosis (1) Dental caries extending into dentin: Status: Acute (2) Anxiety in acute stress reaction: Status: Acute
== END 2019-03-19 15:10 | disposition home or self-care (01) ==
PROVIDERS: PCP Family Medicine; Visit Provider Dentist Pediatric Dentistry
PROC: (CPT D4341; 2019-03-19 10:30)
DX: F41.1 Generalized anxiety disorder (principal); K02.62 Dental caries on smooth surface penetrating into dentin; F43.0 Acute stress reaction
CPT/HCPCS: D0120; D1206; J1100; J2001; J2405; J2704

== ENCOUNTER 2019-12-24 03:58 | Outpatient (CLI) | payer MEDICAID, SELFPAY ==
--- NOTE | 2019-12-24 06:45 | DI.US_ITS ---
EXAM: US RENAL CLINICAL HISTORY: MONITOR FOR RECURRENCE,BILAT KIDNEY STONES,N20.0 TECHNIQUE: Ultrasound performed using standard protocol. COMPARISON: CT CT ABDOMEN PELVIS WO from 03/07/2018 US US renal from 10/22/2018 FINDINGS: The patient reportedly has a history of bilateral nephrocalcinosis. There are prominent areas medull damari increased echogenicity consistent with this diagnosis. There is no evidence of hydronephrosis of the right or left kidney at this time. No gross renal mass identified. Inferior pole of the right kidney poorly visualized. Inferior pole of left kidney poorly visualized. Urinary bladder contains about 41 millimeters of urine and is grossly unremarkable. Left ureteral je t identified, no right ureteral jet seen. 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
--- NOTE | 2019-12-24 09:45 | DI.RAD_ITS ---
EXAM: XR ABDOMEN FLAT PLATE CLINICAL HISTORY: MONITOR FOR RECURRENCE,N20.0, BILAT KIDNEY STONES TECHNIQUE: COMPARISON: CT CT ABDOMEN PELVIS WO from 03/07/2018 CR,XR XR HIP PELVIS ADULT BL from 01/21/2019 CR,XR XR ABDOMEN FLAT UPRIGHT from 01/21/2019 CR,XR XR CHEST 2V PA LATERAL from 01/21/2019 FINDINGS: Two views were obtained. There are innumerable bilateral renal calcifications, as noted on prior CT of February 2018. Little gross interval change in appearance since that time. Ventriculoperitoneal shunts are again noted as seen on prior abdomen films of January 2019. There is moderate constipation. No gross bowel obstruction. Severe left scoliosis noted. IMPRESSION: Severe bilateral nephrocalcinosis, little interval change from prior CT of 2017 or from radiographs o f January 2019 RADIATION DOSE DELIVERED: Total DLP
== END 2019-12-24 04:18 ==
PROVIDERS: PCP Family Medicine; Visit Provider Urology
DX: N20.0 Calculus of kidney (principal)
CPT/HCPCS: 76770; 74018

== ENCOUNTER 2020-11-10 02:49 | Outpatient (CLI) | payer MEDICAID, SELFPAY ==
--- NOTE | 2020-11-10 07:00 | DI.US_ITS ---
Exam(s) US RENAL EXAM: US RENAL CLINICAL HISTORY: monitor known stones TECHNIQUE: Ultrasound performed using standard protocol. COMPARISON: CR XR ABDOMEN FLAT PLATE from 12/24/2019 US US RENAL from 12/24/2019 CR XR ABDOMEN FLAT PLATE from 12/24/2019 FINDINGS: This patient has known nephrocalcinosis. There are numerous highly echogenic foci with posterior aco ustic shadowing of much of varying sizes in both kidneys consistent with this diagnosis. There is no gross hydronephrosis of the right or left kidney at this time. The right ureteral jet was nonvisual ized. Left ureteral jet was visualized. Urinary bladder is grossly unremarkable, the patient was unable to void, there was 76 cc urine in the urinary bladder. IMPRESSION: DATA REPOSITORY:
--- NOTE | 2020-11-10 07:00 | DI.RAD_ITS ---
Exam(s) XR ABDOMEN FLAT PLATE EXAM: XR ABDOMEN FLAT PLATE CLINICAL HISTORY: monitor known stones TECHNIQUE: COMPARISON: CR XR ABDOMEN FLAT PLATE from 12/24/2019 FINDINGS: Two views were obtained. There is a pronounced left convex lumbar scoliosis and chronic pelvic hip d eformity is noted. There are 2 ventriculoperitoneal shunt tubes. There are innumerable bilateral renal calculi. There is moderate constipation. No other significant findings. IMPRESSION: RADIATION DOSE DELIVERED: Total DLP
== END 2020-11-10 03:09 ==
PROVIDERS: PCP Family Medicine; Visit Provider Urology
DX: N20.0 Calculus of kidney (principal)
CPT/HCPCS: 76770; 74018

== ENCOUNTER 2021-07-04 07:20 | Inpatient (IN) | payer MEDICAID, SELFPAY ==
[2021-07-04] VITALS (59 sets, daily range): BP systolic 101–143; BP diastolic 42–97; PULSE 63–159; RESP 15–62; TEMP 36.2–37.1; O2SAT 89–100
--- NOTE | 2021-07-04 | DI.RAD_ITS ---
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 TECHNIQUE: 2D digital imaging was performed. COMPARISON: CR XR PORTABLE CHEST AP from 07/04/2021 FINDINGS: Five views There are 2 left-sided ventriculoperitoneal shunts. These extend caudally across the midline. Dista l aspect of 1 is in the pelvis and distal aspect the other is in the upper abdomen. Stomach appears distended with air. No obvious pneumoperitoneum. There is contrast seen in the upper right kidney c ollecting system above the UPJ and this appears dilated. There is also contrast seen in the urinary bladder. There is no contrast seen in the left kidney. Chronic hip findings are noted with absence of femoral head-neck is. Also scoliosis. IMPRESSION: Two ventriculoperitoneal shunts as described above. Contrast noted in prominent right kidney collecting system at and above the UPJ. Suspect right UPJ o bstruction. The contrast which is seen in the urinary bladder is most probably from the opposite-lef t kidney (which is no longer opacified). DATA REPOSITORY: RADIATION DOSE DELIVERED:
--- NOTE | 2021-07-04 | DI.CT_ITS ---
Exam(s) CT HEAD WO EXAM: CT HEAD WO CLINICAL HISTORY: nausea and vomiting, MOLDER HAND shunt, evaluate. TECHNIQUE: Imaging Protocol: Axial computed tomography images with coronal and sagittal reformatted images were created and reviewed COMPARISON: CT CT HEAD WO from 10/21/2018 FINDINGS: Study is limited due to positioning. There are 2 left parietal approach ventriculoperitoneal shunts again noted, similar in appearance and location to the prior exam. Only 1 of these appears to be connected to a reservoir, similar to prev ious. No evidence intracranial hemorrhage, intra or extra-axial. No new mass effect nor shift of midline s tructures. No new obvious territorial infarction. Some encephalomalacia in the left frontal lobe is noted. There is no parenchymal calcification. 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 The CSF spaces are again noted be larger on the left side of the brain right, unchanged. IMPRESSION: No acute intracranial findings on this noninfused CT scan of the brain. Stable chronic findings as described above. RADIATION DOSE DELIVERED: 855.34mGy.cm Total DLP DATA REPOSITORY: All CT scans at this facility are submitted to the National Radiology Data Registry (NRDR) Dose Index Registry (DIR) with the [employer] (ACR). RADIATION OPTIMIZATION: All CT scans at this facility use at least one of these dose optimization te chniques: automated exposure control; mA and/or kV adjustment per patient size (includes targeted exa ms where dose is matched to clinical indication); or iterative reconstruction.
--- NOTE | 2021-07-04 07:30 | DI.RAD_ITS ---
Exam(s) XR PORTABLE CHEST AP EXAM: XR PORTABLE CHEST AP CLINICAL HISTORY: cough. TECHNIQUE: 2D digital imaging was performed. COMPARISON: CR,XR XR CHEST 2V PA LATERAL from 01/21/2019 FINDINGS: LUNGS: Clear. No pleural abnormality seen. HEART: Normal. MEDIASTINUM: Normal. OTHER FINDINGS: None. IMPRESSION: No acute pulmonary findings. DATA REPOSITORY: RADIATION DOSE DELIVERED: Total DLP
--- NOTE | 2021-07-04 07:50 | ED.GENADUL_ITS ---
Discharge Plan Discharge Details Chief Complaint: GenMedical Primary Care Provider: Pascual Johnson ED Provider: Peter Pierce Home Meds and New Rx's Prescriptions: No Action diazepam 5-7.5-10 mg kit 5 mg AL Q12H PRN (Reason: seizure activity) Qty: 5 5RF Rx Instructions: Administer for seizure >30 seconds. carbamazepine 100 mg tablet,chewable See Rx Instructions PO TID Qty: 450 3RF Rx Instructions: 200mg am, 100mg noon, and 200mg HS PO three times a day; gabapentin 800 mg tablet 800 mg PO TID Qty: 270 3RF levetiracetam 750 mg tablet 750 mg PO BID Qty: 180 3RF epinephrine 0.3 mg/0.3 mL auto-injector 0.3 mg IM ONCE Qty: 2 1RF Rx Instructions: PRN FOR ANAPHYLAXIS Pediatric Balanced Nutrition 0.03-1 gram-kcal/mL liquid 237 ml PO BID PRN (Reason: underweight) Qty: 7110 11RF Rx Instructions: PEDIASURE polyethylene glycol 3350 17 gram powder in packet 17 g PO DAILY 0RF simethicone [Gas-X Extra Strength] 125 mg capsule 125 mg PO AC 0RF acetaminophen 650 mg suppository 650 mg AL TID PRN0RF bisacodyl 10 mg suppository 10 mg AL DAILY PRN (Reason: constipation) Qty: 12 2RF nystatin 100,000 unit/gram cream 1 applic TP BID PRN (Reason: intertrigo) Qty: 30 5RF docusate sodium 100 mg capsule 200 mg PO TID Qty: 540 3RF famotidine 20 mg tablet 20 mg PO BID PRN (Reason: dyspepsia) Qty: 180 4RF Rx Instructions: stopped this and just using as a prn bid for illness/biopsies/stressful events pantoprazole 40 mg tablet,delayed release (DR/EC) 40 mg PO BID Qty: 180 3RF Rx Instructions: 1 TAB BID sennosides [Senna Laxative] 8.6 mg tablet 8.6 mg PO BID Qty: 180 3RF Vitamin B-6 50 mg capsule 50 mg PO DAILY Qty: 90 3RF Lactobacillus acidophilus 100 million cell capsule 100 mmu cells PO BID Qty: 180 3RF folic acid 1 mg tablet 1 mg PO DAILY Qty: 90 3RF melatonin 5 mg capsule 5 mg PO HS Qty: 90 3RF Perla Protect(dimethicone-zinc) 142 GM cream 1 gm PRN PRN0RF HPI General Date/Time Provider Initiated Documentation: 07/04/21 07:26 . HPI Narrative: 35-year-old gentleman sent to the emergency department for evaluation of nausea vomiting. According to EMS patient has had various episodes of nausea vomiting since yesterday. Patient is blind and therefore cannot provide information regarding history. Review of systems. Ed caveat as above Related Data Home Medications Medication Instructions Recorded Confirmed dimethicone-zinc oxide topical 1 gm PRN PRN 05/31/17 07/04/21 cream (Perla Protect(dimethicone-zinc)) bisacodyl 10 mg rectal suppository 10 mg AL DAILY PRN #12 each 11/24/18 07/04/21 nystatin 100,000 unit/gram topical 1 applic TP BID PRN #30 gm 06/04/19 07/04/21 cream docusate sodium 100 mg capsule 200 mg PO TID #540 cap 06/21/20 07/04/21 famotidine 20 mg tablet 20 mg PO BID PRN #180 tab 06/21/20 07/04/21 pantoprazole 40 mg tablet,delayed 40 mg PO BID #180 tab-cap 06/21/20 07/04/21 release polyethylene glycol 3350 17 gram 17 g PO DAILY each 11/01/20 07/04/21 oral powder packet simethicone 125 mg capsule (Gas-X 125 mg PO AC cap 11/01/20 07/04/21 Extra Strength) acetaminophen 650 mg rectal 650 mg AL TID PRN ea 04/04/21 07/04/21 suppository carbamazepine 100 mg chewable See Rx Instructions PO TID #450 tab 04/04/21 07/04/21 tablet diazepam 5 mg-7.5 mg-10 mg rectal 5 mg AL Q12H PRN #5 ea 04/04/21 07/04/21 kit gabapentin 800 mg tablet 800 mg PO TID #270 tab 04/04/21 07/04/21 levetiracetam 750 mg tablet 750 mg PO BID #180 tab 04/04/21 07/04/21 pyridoxine (vitamin B6) 50 mg 50 mg PO DAILY #90 cap 03/04/22 04/20/22 capsule (Vitamin B-6) sennosides 8.6 mg tablet (Senna 8.6 mg PO BID #180 tab 05/18/21 07/04/21 Laxative) Lactobacillus acidophilus 100 100 mmu cells PO BID #180 cap 06/18/21 07/04/21 million cell capsule folic acid 1 mg tablet 1 mg PO DAILY #90 tab 06/18/21 07/04/21 melatonin 5 mg capsule 5 mg PO HS #90 cap 06/19/21 07/04/21 epinephrine 0.3 mg/0.3 mL 0.3 mg (0.3 mL) IM ONCE #2 pen 06/27/21 07/04/21 injection, auto-injector pedi nutrition,iron,lact-free 0.03 237 ml PO BID PRN #7110 ml 06/27/21 07/04/21 gram-1 kcal/mL oral liquid (Pediatric Balanced Nutrition) Previous Rx's Medication Instructions Recorded bisacodyl 10 mg rectal suppository 10 mg AL DAILY PRN #12 each 11/24/18 nystatin 100,000 unit/gram topical 1 applic TP BID PRN #30 gm 06/04/19 cream docusate sodium 100 mg capsule 200 mg PO TID #540 cap 06/21/20 famotidine 20 mg tablet 20 mg PO BID PRN #180 tab 06/21/20 pantoprazole 40 mg tablet,delayed 40 mg PO BID #180 tab-cap 06/21/20 release carbamazepine 100 mg chewable See Rx Instructions PO TID #450 tab 04/04/21 tablet diazepam 5 mg-7.5 mg-10 mg rectal 5 mg AL Q12H PRN #5 ea 04/04/21 kit gabapentin 800 mg tablet 800 mg PO TID #270 tab 04/04/21 levetiracetam 750 mg tablet 750 mg PO BID #180 tab 04/04/21 pyridoxine (vitamin B6) 50 mg 50 mg PO DAILY #90 cap 05/18/21 capsule (Vitamin B-6) sennosides 8.6 mg tablet (Senna 8.6 mg PO BID #180 tab 05/18/21 Laxative) Lactobacillus acidophilus 100 100 mmu cells PO BID #180 cap 06/18/21 million cell capsule folic acid 1 mg tablet 1 mg PO DAILY #90 tab 06/18/21 melatonin 5 mg capsule 5 mg PO HS #90 cap 06/19/21 epinephrine 0.3 mg/0.3 mL 0.3 mg (0.3 mL) IM ONCE #2 pen 06/27/21 injection, auto-injector pedi nutrition,iron,lact-free 0.03 237 ml PO BID PRN #7110 ml 06/27/21 gram-1 kcal/mL oral liquid (Pediatric Balanced Nutrition) Allergies Allergy/AdvReac Type Severity Reaction Status Date / Time latex Allergy Severe ANAPHYLAXIS Verified 07/04/21 07:23 venom-honey bee Allergy Unknown Verified 07/04/21 07:23 adhesive tape AdvReac Severe irritation, Verified 07/04/21 07:23 rash heparin AdvReac Severe GI BLEED Verified 07/04/21 07:23 NSAIDS (Non-Steroidal AdvReac Intermediate GI BLEED Verified 07/04/21 07:23 Anti-Inflamma ferrous sulfate AdvReac Verified 07/04/21 07:23 General Stated Complaint: GenMedical JUANJO: 3 Review of Systems Narrative: Unobtainable from patient. PFSH All Active Problems (Updated 07/04/21 @ 15:15 by Faye Portillo, KASEY) Leukocytosis (Acute) Nausea & vomiting (Acute) Weight loss (Acute) Bilateral kidney stones (Acute) Anxiety in acute stress reaction (Acute) Dental caries extending into dentin (Acute) Discharge planning issues (Acute) DVT prophylaxis (Acute) Upper GI bleeding (Acute) Acute on chronic blood loss anemia (Acute) Seizure disorder (Chronic) Anemia (Chronic) Right nephrolithiasis (Chronic) Epilepsy (Chronic 04/12/11) Seizure (Acute) Status post ventriculoperitoneal shunt (Chronic) GERD (gastroesophageal reflux disease) (Chronic) Vitamin D deficiency (Chronic) Focal epilepsy with impairment of consciousness, intractable (Chronic) Mental retardation (Chronic) non verbal incontinent bladder and bowel Idiopathic scoliosis (Chronic) Hydrocephalus (Chronic 04/30/14) 2014 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 and new shunt inserted at [facility] [place] Apr 2014 Cerebral palsy (Chronic) Severe; 23.5 weeks GA; Spastic quadraplegia non verbal Bowel and bladder incontinence (Chronic 01/28/14) 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 femoral resections H/O nephrostomy History of lung surgery unknown; large scar on chest History of surgical procedure S/P ureteral stent placement (~06/28/18) 06/28/18 [facility] [place]; LEFT-kb SHUNT APPETIZER PACKER SHUNT; revision in 2014 Status post laser lithotripsy of ureteral calculus Family History Mother , AGE 40 Cancer Father No problems noted. Sister Cancer Maternal Grandfather , AGE 73 Cancer Maternal Grandmother , AGE 77 Cancer Brother , MVA AGE 10 No problems noted. Social History Smoking/Tobacco Use Status: Never Smoking risk assessment performed?: Yes Alcohol Intake: never Drug use: Never Substance use type: does not use Caregiver/Support person: Yes Household members: caregiver Housing: house Number of Children: 0 Pets and animals: Yes Pets and animals: dog(s) Sexually active: No What is your relationship status?: never How often do you talk on the phone with friends or family?: never How often do you get together with friends or relatives?: decline to answer How often do you attend christian or shinto services?: decline to answer Do you belong to any clubs or organized social groups?: decline to answer Panel score (0-1 are the most socially isolated patients): 0 What type of physical activity do you participate in: other Details: bouncing Duration: < 15 minutes/day Latonya/Mu-Ism: None Special latonya needs: No Seatbelt use: always Drive intox or ride w/intox driver courier: No Do you feel safe at home: Yes Do you feel safe in your relationship?: Yes Exam Narrative Exam Narrative: Exam Narrative: CONST: resting, intermittent vomiting HENMT:? Head nomocephalic, normal to inspection. Atraumatic. Hearing grossly normal.? TMs appear normal bilaterally.? Limited exam of the mouth but no obvious pharyngeal erythema noted. EYES: General normal appearance. Alignment normal. Eyelids normal. Conjunctiva normal. NECK: Normal visual inspection. FROM. Trachea midline. No Midline tenderness. CHEST: Normal insepection of the chest. RESP: Normal respiratory effort.?No cough. No audible wheezing.? No retractions.? Breath sounds are equal bilaterally.? No obvious rales or rhonchi CARDIO:? No JVD.? No murmurs or rubs, regular rate and rhythm GI S ND NT, no organomeaglies MUSCULOSKELETAL: Patient with contracted lower extremities, atrophied legs NEURO - non focal SKIN:? Normal.? Dry.? No rashes. Ext: contractured, no edema Course case d/w guardian from the [facility] (Minnie), she informed me that the patient was seen last Friday with a primary care provider. At that time he had his COVID booster and a flu shot. hev has refused food and liquids since Friday. He had 2 breakthrough seizures on Friday. No reported seizures today nor yesterday. He has had approximately 10 pound weight loss in the past week. His caregiver, Ashley, was able to give him some sips of fluids and Ensure yesterday with his seizure medications. radiology results reviewed radiologist zohreh was d/w hospitalist - admission for hydration, electrolyte correction, observation and blood work Patient responded well to single dose of zofran and pepcid. Vital Signs Vital signs: Vital Signs Temperature 36.7 C 07/04/21 07:14 Pulse 138 H 07/04/21 07:14 Respiratory Rate 18 07/04/21 07:14 Blood Pressure 129/97 H 07/04/21 07:14 Pulse Oximetry 98 07/04/21 07:14 Temperature 36.7 C 07/04/21 07:14 Temperature Source Temporal Artery Scan 07/04/21 07:14 Pulse 138 H 07/04/21 07:14 Respiratory Rate 18 07/04/21 07:14 Respiratory Effort 07/04/21 07:14 Blood Pressure 129/97 H 07/04/21 07:14 Blood Pressure Position Supine 07/04/21 07:14 Pulse Oximetry 98 07/04/21 07:14 Oxygen Delivery Method Room Air 07/04/21 07:14 Oxygen Flow Rate 0 07/04/21 07:14
[2021-07-04] MEDS: Normal Saline 1,000 ML 1000 ML IV (08:15)
[2021-07-04] MEDS: Ondansetron 4 MG/2 ML VIAL IVP (08:15)
[2021-07-04 08:30] LABS: Abs Immature Grans 0.16 10^3/uL (0.0-0.06); HCT 36.5 % (40.0-50.0); MCH 16.7 pg (27.0-33.0); MCHC 24.7 % (32.0-36.0); MCV 67.7 fL (80-95); MPV 10.6 fL (8.0-11.0); Nucleated RBC 0.2 % (0.0-0.3); RBC 5.39 10^6/uL (4.36-5.78); RDW 23.6 % (11.8-14.1); RDW-SD 54.2 fL
[2021-07-04] MEDS: Famotidine 20 MG/2 ML VIAL IVP (08:36)
[2021-07-04 08:45] LABS: TROPONIN-I 5.2 ug/mL (4.0-12.0)
--- NOTE | 2021-07-04 08:45 | DI.US_ITS ---
Exam(s) US ABDOMEN EXAM: US ABDOMEN CLINICAL HISTORY: Nausea and vomiting,elevated LFTs TECHNIQUE: Ultrasound performed using standard protocol. COMPARISON: US US RENAL from 11/10/2020 FINDINGS: Examination was technically limited by overlying bowel gas which obscured portions of aorta and pancr eas and examination was also limited due to the patient's limited ability to cooperate with the exami nation. No gross liver lesion identified. Portal venous flow is hepatopetal. There is cholelithiasis with no gross gallbladder wall thickening, pericholecystic fluid collection, or gallbladder tenderness on scanning. There is no biliary dilatation, common appendix duct measures about 4 millimeters in diameter am eter. Spleen is unremarkable in appearance. The patient reportedly has known medullary nephrocalcinosis an d the kidneys have appearance consistent with this diagnosis. There is no evidence of urinary tract obstruction and no hydronephrosis. IMPRESSION: Cholelithiasis. Bilateral renal medullary nephrocalcinosis without evidence of urinary tract obstruc tion. DATA REPOSITORY:
[2021-07-04 08:46] LABS: ALT 91 U/L (16-63); AST 45 U/L (15-37); Albumin 4.3 g/dL (3.4-5.0); Alkaline Phosphatase 120 U/L (46-116); Anion Gap 16.4 mmol/L (3-11); BUN 20 mg/dL (7-18); Bilirubin, Total 0.6 mg/dL (0.2-1.0); CO2 27.6 mmol/L (21.0-32.0); CREATININE 1.1 mg/dL (0.70-1.30); Calcium 10.4 mg/dL (8.5-10.1); Chloride 108 mmol/L (98-107); Glucose 166 mg/dL (74-106); Lipase 69 U/L (73-393); Magnesium 2.3 mg/dL (1.8-2.4); Potassium 3.3 mmol/L (3.5-5.1); Sodium 152 mmol/L (136-145); Total Protein 9.2 g/dL (6.4-8.2)
[2021-07-04 09:06] LABS: Platelet Count 1048 10^3/uL (130-400)
[2021-07-04 09:07] LABS: Absolute Lymphocyte Count 1.67 10^3/uL (1.2-3.4); Absolute Monocyte Count 0.56 10^3/uL (0.1-0.8); Absolute Neutrophil Count 25.58 10^3/uL (1.2-6.7); Atypical Lymphocytes % 0; Bands % 0
[2021-07-04 09:08] LABS: Anisocytosis 2+; Diff Comment Manual Differential; Hypochromasia 2+
[2021-07-04 09:09] LABS: Microcytosis 2+
[2021-07-04] MEDS: AMPICILLIN/SULBACTAM 1.5 GM in Normal Saline 50 ML IVPB (10:11)
[2021-07-04] MEDS: Omnipaque 350 MG/ML 100 ML BTL IJ (11:58)
--- NOTE | 2021-07-04 12:08 | DI.CT_ITS ---
Exam(s) CT ABDOMEN PELVIS W EXAM: CT ABDOMEN PELVIS W CLINICAL HISTORY: nausea vomiting / elevated wbc TECHNIQUE: COMPARISON: CT CT ABDOMEN PELVIS WO from 03/07/2018 FINDINGS: CT examination of the abdomen and pelvis was performed with bolus infusion of 40 cc of Omnipaque 350. There is marked motion artifact limiting scan interpretation. Images obtained through the lung bases are unremarkable except for probable small areas of atelectasis.. There is a ventriculo peritoneal shunt position. The liver appears normal with no evidence of a focal mass. Spleen is unremarkable in appearance.. Gallbladder and bile ducts are poorly visualized, a today's ultrasound showed cholelithiasis period . Pancreas is unremarkable in appearance as visualized.. Adrenals appear normal bilaterally. There is bilateral medullary nephrocalcinosis with no gross hydronephrosis or hydroureter. No ureter al calcification. Urinary bladder grossly unremarkable.. There is no evidence of abdominal or pelvic adenopathy. Abdominal aorta is of normal diameter and no abnormality is seen involving major visceral branches.. Appendix is not identified with certainty but there is no evidence of appendicitis.. No evidence div erticulitis or bowel obstruction. No significant abdominal wall hernia seen. Impression: No evidence of acute intra-abdominal process.. RADIATION DOSE DELIVERED: 283.02mGy.cm Total DLP 283.02mGy.cm Total DLP !Error CTDIvol DATA REPOSITORY: All CT scans at this facility are submitted to the National Radiology Data Registry (NRDR) Dose Index Registry (DIR) with the [employer] (ACR). RADIATION OPTIMIZATION: All CT scans at this facility use at least one of these dose optimization te chniques: automated exposure control; mA and/or kV adjustment per patient size (includes targeted exa ms where dose is matched to clinical indication); or iterative reconstruction.
--- NOTE | 2021-07-04 15:00 | HPE_ITS ---
Date of service: 07/04/21 Time of Service: 15:00 Assessment and Plan Assessment and plan (1) Nausea & vomiting: Status: Acute Assessment and plan: no obstruction or explanation of symptoms noted on abdominal imaging in the ED. given IV fluids in ED, will admit to med/surg for IV hydration, antiemetics. advance diet as tolerated. treatment of electrolyte disturbances, hypernatremia, hypokalemia. should evaluate REACTOR FUELING SUPERVISOR shunt, imaging ordered. (2) Leukocytosis: Status: Acute Assessment and plan: suspect reactive. will search for infection no antibiotics indicated at this time. cultures pending. (3) Seizure disorder: Status: Chronic Assessment and plan: tegretol level continue home medications caregiver reports increased incident of chronic seizures over past few days which they state is consistent with UTI. urine culture pending. (4) DVT prophylaxis: Status: Acute Assessment and plan: enoxaparin (5) Discharge planning issues: Status: Acute Assessment and plan: anticipate discharge to home with resumption of services. discussed in Dr Baker History of Present Illness History of Present Illness Chief Complaint: vomiting, dehydration Narrative: This is a 35 year old patient with history of epilepsy, ventriculoperitoneal shunt, mental retardation, hydrocephalus, cerebral palsy who presented to the ED with a 2 day history of nausea and vomiting and has not been able to take he medications accordingly. Report and history of presentation obtained from the record and ED provider as patient is unable to provide. His work up shows white count of 28, sodium 152, potassium 3.3, bun 20 creat 1.1. there are no reports of fever, no source of infection identified in the ED. He was given unasyn and 1 liter of NS in the ED. His case is discussed with Dr Mccain who accepts for admission to med/surg for further management and monitoring. requested urinalysis, blood cultures and additional labs be added. Review of Systems Unobtainable due to mental status (baseline mental retardation) Gastrointestinal Gastrointestinal: Reports vomiting PFSH All Active Problems (Updated 07/04/21 @ 15:15 by Faye Portillo NP) Leukocytosis (Acute) Nausea & vomiting (Acute) Weight loss (Acute) Bilateral kidney stones (Acute) Anxiety in acute stress reaction (Acute) Dental caries extending into dentin (Acute) Discharge planning issues (Acute) DVT prophylaxis (Acute) Upper GI bleeding (Acute) Acute on chronic blood loss anemia (Acute) Seizure disorder (Chronic) Anemia (Chronic) Right nephrolithiasis (Chronic) Epilepsy (Chronic 04/12/11) Seizure (Acute) Status post ventriculoperitoneal shunt (Chronic) GERD (gastroesophageal reflux disease) (Chronic) Vitamin D deficiency (Chronic) Focal epilepsy with impairment of consciousness, intractable (Chronic) Mental retardation (Chronic) non verbal incontinent bladder and bowel Idiopathic scoliosis (Chronic) Hydrocephalus (Chronic 04/30/14) 2014 REACTOR FUELING SUPERVISOR shunt malfunction and new shunt inserted at [facility] Apr 2014 Cerebral palsy (Chronic) Severe; 23.5 weeks GA; Spastic quadraplegia non verbal Bowel and bladder incontinence (Chronic 01/28/14) 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 femoral resections H/O nephrostomy History of lung surgery unknown; large scar on chest History of surgical procedure S/P ureteral stent placement (~06/28/18) 06/28/18 [facility]; LEFT-kb SHUNT REACTOR FUELING SUPERVISOR SHUNT; revision in 2014 Status post laser lithotripsy of ureteral calculus Family History Mother , AGE 40 Cancer Father No problems noted. Sister Cancer Maternal Grandfather , AGE 73 Cancer Maternal Grandmother , AGE 77 Cancer Brother , MVA AGE 10 No problems noted. Social History Smoking/Tobacco Use Status: Never Smoking risk assessment performed?: Yes Alcohol Intake: never Drug use: Never Substance use type: does not use Caregiver/Support person: Yes Household members: caregiver Housing: house Number of Children: 0 Pets and animals: Yes Pets and animals: dog(s) Sexually active: No What is your relationship status?: never How often do you talk on the phone with friends or family?: never How often do you get together with friends or relatives?: decline to answer How often do you attend yarsani or episcopal services?: decline to answer Do you belong to any clubs or organized social groups?: decline to answer Panel score (0-1 are the most socially isolated patients): 0 What type of physical activity do you participate in: other Details: bouncing Duration: < 15 minutes/day Latonya/Samaritan: None Special latonya needs: No Seatbelt use: always Drive intox or ride w/intox front end loader driver: No Do you feel safe at home: Yes Do you feel safe in your relationship?: Yes Meds Allergies and Home Medications Allergies Allergy/AdvReac Type Severity Reaction Status Date / Time latex Allergy Severe ANAPHYLAXIS Verified 07/04/21 07:23 venom-honey bee Allergy Unknown Verified 07/04/21 07:23 adhesive tape AdvReac Severe irritation, Verified 07/04/21 07:23 rash heparin AdvReac Severe GI BLEED Verified 07/04/21 07:23 NSAIDS (Non-Steroidal AdvReac Intermediate GI BLEED Verified 07/04/21 07:23 Anti-Inflamma ferrous sulfate AdvReac Verified 07/04/21 07:23 Home Medications Medication Instructions Recorded Confirmed Type dimethicone-zinc oxide topical 1 gm PRN PRN 05/31/17 07/04/21 History cream (Perla Protect(dimethicone-zinc)) bisacodyl 10 mg rectal suppository 10 mg MT DAILY PRN #12 each 11/24/18 07/04/21 Rx nystatin 100,000 unit/gram topical 1 applic TP BID PRN #30 gm 06/04/19 07/04/21 Rx cream docusate sodium 100 mg capsule 200 mg PO TID #540 cap 06/21/20 07/04/21 Rx famotidine 20 mg tablet 20 mg PO BID PRN #180 tab 06/21/20 07/04/21 Rx pantoprazole 40 mg tablet,delayed 40 mg PO BID #180 tab-cap 06/21/20 07/04/21 Rx release polyethylene glycol 3350 17 gram 17 g PO DAILY each 11/01/20 07/04/21 History oral powder packet simethicone 125 mg capsule (Gas-X 125 mg PO AC cap 11/01/20 07/04/21 History Extra Strength) acetaminophen 650 mg rectal 650 mg MT TID PRN ea 04/04/21 07/04/21 History suppository carbamazepine 100 mg chewable See Rx Instructions PO TID #450 tab 04/04/21 07/04/21 Rx tablet diazepam 5 mg-7.5 mg-10 mg rectal 5 mg MT Q12H PRN #5 ea 04/04/21 07/04/21 Rx kit gabapentin 800 mg tablet 800 mg PO TID #270 tab 04/04/21 07/04/21 Rx levetiracetam 750 mg tablet 750 mg PO BID #180 tab 04/04/21 07/04/21 Rx pyridoxine (vitamin B6) 50 mg 50 mg PO DAILY #90 cap 05/18/21 07/04/21 Rx capsule (Vitamin B-6) sennosides 8.6 mg tablet (Senna 8.6 mg PO BID #180 tab 05/18/21 07/04/21 Rx Laxative) Lactobacillus acidophilus 100 100 mmu cells PO BID #180 cap 06/18/21 07/04/21 Rx million cell capsule folic acid 1 mg tablet 1 mg PO DAILY #90 tab 06/18/21 07/04/21 Rx melatonin 5 mg capsule 5 mg PO HS #90 cap 06/19/21 07/04/21 Rx epinephrine 0.3 mg/0.3 mL 0.3 mg (0.3 mL) IM ONCE #2 pen 06/27/21 07/04/21 Rx injection, auto-injector pedi nutrition,iron,lact-free 0.03 237 ml PO BID PRN #7110 ml 06/27/21 07/04/21 Rx gram-1 kcal/mL oral liquid (Pediatric Balanced Nutrition) Exam Narrative Exam Narrative: frail, chronically ill appearing resting quietly on the stretcher in position, eyes closed. resp even and unlabored ext contracted with no edema, abd flat Const General: other Nutritional Appearance: cachectic Results Labs Result diagrams: 07/04/21 08:10 07/04/21 15:35 Labs: Laboratory Results - last 24 hr 07/04/21 07/04/21 07/04/21 08:10 08:10 08:10 WBC 27.80 H* RBC 5.39 Hgb 9.0 L Hct 36.5 L MCV 67.7 L MCH 16.7 L MCHC 24.7 L RDW 23.6 H Plt Count 1048 H* MPV 10.6 Immature Gran % 0.0 Neutrophils % 92.0 Band Neutrophils % 0 Lymphocytes % 6.0 Atypical Lymphs % 0 Monocytes % 2.0 Eosinophils % 0.0 Basophils % 0.0 Nucleated RBC % 0.2 Absolute Neutrophils 25.58 H Absolute Lymphocytes 1.67 Absolute Monocytes 0.56 Absolute Eosinophils 0.00 Absolute Basophils 0.00 RBC Morphology See Below Hypochromasia 2+ Anisocytosis 2+ Microcytosis 2+ Sodium 152 H Potassium 3.3 L Chloride 108 H Carbon Dioxide 27.6 Anion Gap 16.4 H BUN 20 H Creatinine 1.1 Estimated GFR/1.73 m2 >= 60.00 Glucose 166 H Calcium 10.4 H Magnesium 2.3 Total Bilirubin 0.6 AST 45 H ALT 91 H Alkaline Phosphatase 120 H Total Protein 9.2 H Albumin 4.3 Lipase 69 Carbamazepine 5.2 Last Vital Signs Temp 36.7 C 07/04/21 07:14 Pulse 74 07/04/21 12:12 Resp 19 07/04/21 10:09 BP 101/54 L 07/04/21 12:12 Pulse Ox 99 07/04/21 13:30
[2021-07-04 15:17] LABS: Bilirubin Negative (Negative); Blood Trace-intact (Negative); Clarity Sl Cloudy (Clear); Glucose Negative (Negative); Ketones 15 mg/dL (Negative); Leukocyte Esterase Small (Negative); Nitrite Negative (Negative); Urobilinogen 0.2 EU/dL (Up TO 0.2)
[2021-07-04 15:31] LABS: Epithelial Cells Rare HPF (Negative); Other Cells Moderate Yeast (Negative); RBC 0-2 HPF (0-2); WBC >50 HPF (0-5)
[2021-07-04 15:32] LABS: Bacteria Rare HPF (Negative); C & S Indicated? C&S Done As Ordered; Crystals Negative HPF (Negative); Mucus Negative (Negative)
[2021-07-04 15:38] LABS: Lactate 1.6 mmol/L (0.6-1.4)
[2021-07-04 15:41] LABS: Source Nasal/Nares
[2021-07-04 15:50] LABS: Anion Gap 10.7 mmol/L (3-11); BUN 17 mg/dL (7-18); CO2 25.3 mmol/L (21.0-32.0); CREATININE 0.9 mg/dL (0.70-1.30); Chloride 116 mmol/L (98-107); Glucose 122 mg/dL (74-106); Potassium 3.6 mmol/L (3.5-5.1); Sodium 152 mmol/L (136-145)
[2021-07-04 16:13] LABS: Procalcitonin 0.1 ng/mL
[2021-07-04 16:41] LABS: COVID-19 PCR Negative (Negative)
--- NOTE | 2021-07-04 18:36 | NUR.NOTE ---
Nursing Note: Ashley [phone]
[2021-07-04] MEDS: Normal Saline Flush 10 ML SYR IVP (20:25)
[2021-07-04] MEDS: Gabapentin 800 MG TAB PO (20:26)
[2021-07-04] MEDS: Famotidine 20 MG TAB PO (20:27)
[2021-07-04] MEDS: Pantoprazole 40 MG TABCR PO (20:27)
[2021-07-04] MEDS: cefTRIAXone 1 GM/50 ML BAG IVPB (20:28)
[2021-07-04] MEDS: Senna TAB 1 TAB PO (20:28)
[2021-07-04] MEDS: POTASSIUM CHLORIDE/D5-0.45NACL 1,000 ML 100 MEQ IV (20:30)
--- NOTE | 2021-07-04 20:31 | DI.VRAD_ITS ---
PROCEDURE INFORMATION: Exam: CT Head Without Contrast Exam date and time: 07/04/2021 7:21 PM Age: 35 years old Clinical indication: Other: Nausea vomiting, vp delivery shunt, evaluate TECHNIQUE: Imaging protocol: Computed tomography of the head without contrast. COMPARISON: CT HEAD WO 10/21/2018 1:11 PM FINDINGS: Limitations: The study is limited secondary to suboptimal patient positioning. Tubes, catheters and devices: There are two left parietal approach ventriculoperitoneal shunts noted, similar in appearance to the prior examination. Brain: There is no acute intracranial hemorrhage, mass effect or midline shift. There is no large acute territorial cerebral infarct. Mild encephalomalacia noted in the left frontal lobe, which may be associated with ventricular catheters. 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 Paranasal sinuses: Visualized sinuses are unremarkable. No fluid levels. Mastoid air cells: Visualized mastoid air cells are well aerated. Orbital cavities: Pthisis bulbi noted in the bilateral orbits. Bones/joints: No acute fracture. Soft tissues: Unremarkable. IMPRESSION: 1. No acute intracranial hemorrhage, mass effect or midline shift. 2. Stable chronic findings as described. Dictated and Authenticated by: Kenya Cee MD. Ordering:KEVIN Mckinney MD
--- NOTE | 2021-07-04 21:34 | DI.VRAD_ITS ---
PROCEDURE INFORMATION: Exam: XR Soft Tissue Neck Exam date and time: 07/04/2021 7:43 PM Age: 35 years old Clinical indication: Device placement; Non-vascular device; Retroperitoneal shunt; Nausea and vomiting; Shunt placement; Prior surgery; Surgery date: 6+ months; Surgery type: Stippler shunt; Additional info: Nausea and vomiting, vp integrity shunt TECHNIQUE: Imaging protocol: XR of the soft tissues of the neck. COMPARISON: CR XR SHUNT SERIES 07/04/2021 7:41 PM FINDINGS: Airway: The airway is not well evaluated on this oblique view. Soft tissues: There are two catheters noted along the left aspect of the neck. Bones/joints: Not well evaluated due to positioning. IMPRESSION: Left neck ventricular catheters noted in place. PROCEDURE INFORMATION: Exam: XR Chest 1 View And XR Abdomen 1 View Exam date and time: 07/04/2021 7:43 PM Age: 35 years old Clinical indication: Device placement; Non-vascular device; Retroperitoneal shunt; Nausea and vomiting; Shunt placement; Prior surgery; Surgery date: 6+ months; Surgery type: Stippler shunt; Additional info: Nausea and vomiting, vp integrity shunt TECHNIQUE: Imaging protocol: XR of the chest and XR Abdomen. COMPARISON: CR XR SHUNT SERIES 07/04/2021 7:41 PM FINDINGS: Tubes, catheters and devices: Two catheters are noted extending from the left upper chest into the abdomen. These catheters appear intact. One catheter is coiled in the upper abdomen and the other catheter terminates in the left aspect of the pelvis. Lungs: No consolidation. Heart/Mediastinum: No cardiomegaly. Intraperitoneal space: No free air. Gastrointestinal tract: The stomach appears distended with air. Organs: There is contrast noted within a prominent right renal collecting system. Bones/joints: No acute fracture. Soft tissues: Normal. IMPRESSION: 1. Ventriculoperitoneal shunt catheters noted in place and appear grossly intact. 2. Contrast is noted in a prominent right renal collecting system. Dictated and Authenticated by: Kenya Cee MD. Ordering:KEVIN Mckinney MD
[2021-07-05] VITALS (12 sets, daily range): BP systolic 95–128; BP diastolic 58–70; PULSE 59–90; RESP 15–24; TEMP 36.2–37.8; O2SAT 96–100
[2021-07-05] MEDS: POTASSIUM CHLORIDE/D5-0.45NACL 1,000 ML 100 MEQ IV ×2 (06:48→18:36)
[2021-07-05 07:14] LABS: Absolute Eosinophil Count 0.08 10^3/uL (0.0-0.7); Basophils % 0.2; Eosinophils % 0.5; HCT 23.1 % (40.0-50.0); Immature Grans % 0.6; Lymphocytes % 10.4; MCH 16.6 pg (27.0-33.0); MCHC 25.1 % (32.0-36.0); MPV 11.1 fL (8.0-11.0); Monocytes % 4.8; Neutrophils % 83.5; Nucleated RBC 0.1 % (0.0-0.3); Platelet Count 579 10^3/uL (130-400); RDW 22.8 % (11.8-14.1); WBC 16.57 10^3/uL (4.4-10.8)
[2021-07-05 07:23] LABS: Absolute Basophil Count 0.03 10^3/uL (0.0-0.2); Absolute Lymphocyte Count 1.72 10^3/uL (1.2-3.4); Absolute Neutrophil Count 13.84 10^3/uL (1.2-6.7)
[2021-07-05 07:31] LABS: Anisocytosis 2+; Diff Comment RBC Morph Reviewed; HGB 5.8 g/dL (13.5-17.5); Hypochromasia 3+; Microcytosis 2+
[2021-07-05 07:36] LABS: ALT 60 U/L (16-63); AST 30 U/L (15-37); Albumin 2.6 g/dL (3.4-5.0); Alkaline Phosphatase 74 U/L (46-116); Anion Gap 6.5 mmol/L (3-11); BUN 9 mg/dL (7-18); Bilirubin, Total 0.2 mg/dL (0.2-1.0); CO2 26.5 mmol/L (21.0-32.0); CREATININE 0.7 mg/dL (0.70-1.30); Calcium 8.6 mg/dL (8.5-10.1); Chloride 115 mmol/L (98-107); Glucose 115 mg/dL (74-106); Potassium 3.4 mmol/L (3.5-5.1); Sodium 148 mmol/L (136-145); Total Protein 6.1 g/dL (6.4-8.2)
[2021-07-05 08:18] LABS: HCT 25.6 % (40.0-50.0)
[2021-07-05 08:20] LABS: HGB 6.3 g/dL (13.5-17.5)
[2021-07-05] MEDS: Normal Saline Flush 10 ML SYR IVP ×3 (09:11→20:21)
[2021-07-05] MEDS: Acetaminophen 650 MG SUPP PR ×2 (09:11→17:12)
[2021-07-05] MEDS: Ondansetron 4 MG/2 ML VIAL IVP (09:15)
--- NOTE | 2021-07-05 10:46 | INITIAL_ITS ---
- If Service Date Differs Date of service: 07/05/21 Time of Service: 10:46 Care Management Initial Assess REASON FOR HOSPITALIZATION:: Dehydration, nausea & vomiting PAST MEDICAL HISTORY/PAST SURGICAL HISTORY:: All Active Problems. Leukocytosis (Acute). Nausea & vomiting (Acute). Weight loss (Acute). Bilateral kidney stones (Acute). Anxiety in acute stress reaction (Acute). Dental caries extending into dentin (Acute). Discharge planning issues (Acute). DVT prophylaxis (Acute). Upper GI bleeding (Acute). Acute on chronic blood loss anemia (Acute). Seizure disorder (Chronic). Anemia (Chronic). Right nephrolithiasis (Chronic). Epilepsy (Chronic 04/12/11). Seizure (Acute). Status post ventriculoperitoneal shunt (Chronic). GERD (gastroesophageal reflux disease) (Chronic). Vitamin D deficiency (Chronic). Focal epilepsy with impairment of consciousness, intractable (Chronic). Mental retardation (Chronic). non verbal. incontinent bladder and bowel. Idiopathic scoliosis (Chronic). Hydrocephalus (Chronic 04/30/14). 2014 FRENCH TRANSLATOR shunt malfunction and new shunt inserted at [facility] Apr 2014. Cerebral palsy (Chronic). Severe; 23.5 weeks GA; Spastic quadraplegia. non verbal. Bowel and bladder incontinence (Chronic 01/28/14). Blindness of both eyes (Chronic). 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 EGD at [facility] [place] [place], GERD. Anemia, chronic disease (Chronic 09/18/16). Swallowing impaired (Chronic). Medical History. Aspiration pneumonia. Hydronephrosis (~02/2018). s/p R PCN 03/08/18. Hypernatremia. Hypokalemia. Pneumonia. Surgical History. FEMORAL DIVISION. bilateral prox. femoral resections. H/O nephrostomy. History of lung surgery. unknown; large scar on chest. History of surgical procedure. S/P ureteral stent placement (~06/28/18). 06/28/18 [facility]; LEFT-kb. SHUNT. FRENCH TRANSLATOR SHUNT; revision in 2014. Status post laser lithotripsy of ureteral calculus PREVIOUS FUNCTIONAL STATUS/SOCIAL/FAMILY SUPPORTS:: Gio lives in [place] with a home provider Ashley and he has a court appointed guardian Minnie Alford, contact number is [phone]. Chilo is dependent for all ADL's including feeding. He is cared for by Ashley. He is wheelchair dependent. CURRENT FUNCTIONAL STATUS:: Marc was lying in bed when CM met with him. The RN and ELECTRONIC SYSTEM ENGINEER were in the room as well, examining him to help determine where he was feeling pain. CM asked the provider to contact his guardian, whom she spoke to and discussed the plan of care. He will have an NG tube placed, and a surgical consult. His Hgb was low today at 6.3, therefore he was given a unit of blood. CM will continue to follow. ADVANCE DIRECTIVES:: [facility] on file. Has patient been provided with info about the portal/API?: Yes Did the patient sign up for the portal?: Yes (active) CODE STATUS:: DNR INSURANCE COVERAGE / FINANCIAL ISSUES:: [employer] CURRENT HOME/COMMUNITY SERVICES/EQUIPMENT:: Josuha has a 24 hour caregiver and he lives in her home. He has a wheelchair. Support services through Palliative Care with Dr. Wolf. PRIMARY CARE PHYSICIAN:: Pascual Johnson POTENTIAL DISCHARGE NEEDS:: Follow up appointments PATIENT/FAMILY EDUCATION NEEDS:: Review discharge plan and limitations, ask me three. ANTICIPATED BARRIERS TO DISCHARGE:: None identified. TRANSPORTATION:: Via private vehicle with caregiver. PLAN:: Marc will return home with his caregiver once he is medically cleared. He will follow up with his PCP and transport with his caregiver. CM will continue to follow.
--- NOTE | 2021-07-05 12:28 | W.SURGCON ---
Date of service: 07/05/21 Time of Service: 17:28 Assessment and Plan Assessment and plan (1) Nausea & vomiting: Status: Acute Assessment and plan: -Unclear etiology, CT scan of the abdomen and pelvis negative for mechanical etiology -NPO, bowel rest and IV fluids until symptoms improve (2) Upper GI bleeding: Status: Suspected Assessment and plan: -Did not tolerate NG tube for gastric lavage -Recommend IV Protonix BID or gtt if preferred and carafate slurry -Q6 Hb/Hct until labs stabilize -Transfuse to maintain Hb >8 -Check stool H. pylori -Gastroccult would be helpful since NG tube was not able to be placed. -Will consider EGD tomorrow depending on clinical status, patient may ultimately benefit from GI evaluation whereas he can undergo both diagnostic and therapeutic interventions simultaneously. I can only offer the patient a possible diagnostic intervention and due to his history of increased adverse neurological symptoms as a result of anesthesia (more frequent seizures) I would advocate strongly for the patient to undergo a single endoscopic procedure with GI who can potentially perform a simultaneous treatment. He does follow with [facility]. Depending on overnight events and clinical status, a multi-disciplinary decision will be made with the effort to maximize benefit and minimize risk to the patient. (3) Leukocytosis: Status: Acute Assessment and plan: -Possible aspiration with history of aspiration pneumonia associated with frequent episodes of vomiting -UA appears to be grossly positive with >50 WBC and leukocyte esterase; gram stain with gram + viridiana and yeast which is abnormal -Recommend initiating broad spectrum IV abx and antifungal especially if speciation and sensntivity was not requested. Defer management to hospitalist service. -Tmax 100.0, leukocytosis down-trending although possibility of hemodilution is likely a confounding factor. (4) Seizure disorder: Status: Chronic (5) DVT prophylaxis: Status: Acute Assessment and plan: -SCD's if patient will tolerate them, otherwise hold all chemical DVT ppx in the setting of possible ongoing GI bleeding. 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 His Hb went from from 9 to 5.8 to 6.3. Repeat Hb/Hct is pending and he is currently being transfused 2 units of PRBC. I was asked to see the patient in regard to upper GI bleeding. Per review of his EMR, he is followed by [facility] for known Mckenzie's esophagus and previous concern for upper GI bleeding. He is due to see them for follow up EGD but was admitted before an appointment could be made. It seems his Hb levels have decreased somewhat rapidly during previous hospitalizations, but has not undergone EGD here at [facility]. Consults Consult date: 07/05/21 Requesting physician: Brigette Portillo Review of Systems Unobtainable due to mental condition (history obtained from chart and care providers) [facility] All Active Problems (Updated 07/05/21 @ 14:08 by Brigette Portillo, KASEY) Leukocytosis (Acute) Nausea & vomiting (Acute) Weight loss (Acute) Bilateral kidney stones (Acute) Anxiety in acute stress reaction (Acute) Dental caries extending into dentin (Acute) Discharge planning issues (Acute) DVT prophylaxis (Acute) Acute on chronic blood loss anemia (Acute) Seizure disorder (Chronic) Anemia (Chronic) Right nephrolithiasis (Chronic) Epilepsy (Chronic 04/12/11) Seizure (Acute) Status post ventriculoperitoneal shunt (Chronic) GERD (gastroesophageal reflux disease) (Chronic) Vitamin D deficiency (Chronic) Focal epilepsy with impairment of consciousness, intractable (Chronic) Mental retardation (Chronic) non verbal incontinent bladder and bowel Idiopathic scoliosis (Chronic) Hydrocephalus (Chronic 04/30/14) 2014 [employer] MACHINE OPER[employer] shunt malfunction and new shunt inserted at [facility] Apr 2014 Cerebral palsy (Chronic) Severe; 23.5 weeks GA; Spastic quadraplegia non verbal Bowel and bladder incontinence (Chronic 01/28/14) 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 femoral resections H/O nephrostomy History of lung surgery unknown; large scar on chest History of surgical procedure S/P ureteral stent placement (~06/28/18) 06/28/18 [facility] LEFT-kb SHUNT HONING MACHINE OPERATOR SHUNT; revision in 2015 Status post laser lithotripsy of ureteral calculus Family History Mother , AGE 40 Cancer Father No problems noted. Sister Cancer Maternal Grandfather , AGE 73 Cancer Maternal Grandmother , AGE 77 Cancer Brother , MVA AGE 10 No problems noted. Social History Smoking/Tobacco Use Status: Never Smoking risk assessment performed?: Yes Alcohol Intake: never Drug use: Never Substance use type: does not use Caregiver/Support person: Yes Household members: caregiver Housing: house Number of Children: 0 Pets and animals: Yes Pets and animals: dog(s) Sexually active: No What is your relationship status?: never How often do you talk on the phone with friends or family?: never How often do you get together with friends or relatives?: decline to answer How often do you attend adventist or judaism services?: decline to answer Do you belong to any clubs or organized social groups?: decline to answer Panel score (0-1 are the most socially isolated patients): 0 What type of physical activity do you participate in: other Details: bouncing Duration: < 15 minutes/day Latonya/Alevism: None Special latonya needs: No Seatbelt use: always Drive intox or ride w/intox transport driver: No Do you feel safe at home: Yes Do you feel safe in your relationship?: Yes Exam Const General: acute distress (appears uncomfortable) mild and frail appearing Nutritional Appearance: thin and underweight Resp Effort & Inspection: normal respiratory effort, no audible wheezes and not labored Cardio Rate: regular rate Rhythm: regular rhythm GI Inspection: non-distended, scaphoid and scar Palpation: soft and tender (generalized discomfort) Percussion: normal to percussion Neuro General: patient alert, patient awake and other (chronic contractures) Motor: muscle tone abnormal (diffuse muscle wasting, chronic spastic quadriplegia) Results Last Vital Signs Temp 98.1 F 07/05/21 12:14 Pulse 65 07/05/21 12:14 Resp 18 07/05/21 12:14 BP 124/68 07/05/21 12:14 Pulse Ox 98 07/05/21 12:14 Labs Result diagrams: 07/05/21 08:05 07/05/21 06:25 Labs: Laboratory Results - last 24 hr 07/04/21 07/04/21 07/04/21 08:10 15:05 15:26 WBC RBC Hgb Hct MCV MCH MCHC RDW Plt Count MPV Immature Gran % Neutrophils % Lymphocytes % Monocytes % Eosinophils % Basophils % Nucleated RBC % Absolute Neutrophils Absolute Lymphocytes Absolute Monocytes Absolute Eosinophils Absolute Basophils RBC Morphology Hypochromasia Anisocytosis Microcytosis VBG Lactate Sodium Potassium Chloride Carbon Dioxide Anion Gap BUN Creatinine Estimated GFR/1.73 m2 Glucose Calcium Total Bilirubin AST ALT Alkaline Phosphatase Total Protein Albumin Procalcitonin Urine Color Yellow Urine Clarity Sl Cloudy Urine pH 6.0 Ur Specific [place] 1.010 Urine Protein 30 H Urine Ketones 15 H Urine Blood Trace-intact H Urine Nitrite Negative Urine Bilirubin Negative Urine Urobilinogen 0.2 Ur Leukocyte Esterase Small H Urine RBC 0-2 Urine WBC >50 H Ur Epithelial Cells Rare Urine Crystals Negative Urine Bacteria Rare Urine Mucus Negative Urine Other Moderate Yeast Ur Culture Indicated? C&S Done As Ordered Urine Glucose Negative COVID-19 Source Nasal/Nares SARS-CoV-2 (PCR) Negative Patient ABO/Rh A Negative Antibody Screen NEGATIVE Crossmatch See Detail 07/04/21 07/04/21 07/05/21 15:35 15:35 06:25 WBC RBC Hgb Hct MCV MCH MCHC RDW Plt Count MPV Immature Gran % Neutrophils % Lymphocytes % Monocytes % Eosinophils % Basophils % Nucleated RBC % Absolute Neutrophils Absolute Lymphocytes Absolute Monocytes Absolute Eosinophils Absolute Basophils RBC Morphology Hypochromasia Anisocytosis Microcytosis VBG Lactate 1.6 H Sodium 152 H 148 H Potassium 3.6 3.4 L Chloride 116 H 115 H Carbon Dioxide 25.3 26.5 Anion Gap 10.7 6.5 BUN 17 9 D Creatinine 0.9 0.7 Estimated GFR/1.73 m2 >= 60.00 >= 60.00 Glucose 122 H 115 H Calcium 9.0 8.6 Total Bilirubin 0.2 AST 30 ALT 60 Alkaline Phosphatase 74 Total Protein 6.1 L Albumin 2.6 L Procalcitonin 0.1 Urine Color Urine Clarity Urine pH Ur Specific [place] Urine Protein Urine Ketones Urine Blood Urine Nitrite Urine Bilirubin Urine Urobilinogen Ur Leukocyte Esterase Urine RBC Urine WBC Ur Epithelial Cells Urine Crystals Urine Bacteria Urine Mucus Urine Other Ur Culture Indicated? Urine Glucose COVID-19 Source SARS-CoV-2 (PCR) Patient ABO/Rh Antibody Screen Crossmatch 07/05/21 07/05/21 06:25 08:05 WBC 16.57 H D RBC 3.50 L Hgb 5.8 L* D 6.3 L* Hct 23.1 L D 25.6 L MCV 66.0 L MCH 16.6 L MCHC 25.1 L RDW 22.8 H Plt Count 579 H D MPV 11.1 H Immature Gran % 0.6 Neutrophils % 83.5 Lymphocytes % 10.4 Monocytes % 4.8 Eosinophils % 0.5 Basophils % 0.2 Nucleated RBC % 0.1 Absolute Neutrophils 13.84 H Absolute Lymphocytes 1.72 Absolute Monocytes 0.80 Absolute Eosinophils 0.08 Absolute Basophils 0.03 RBC Morphology See Below Hypochromasia 3+ Anisocytosis 2+ Microcytosis 2+ VBG Lactate Sodium Potassium Chloride Carbon Dioxide Anion Gap BUN Creatinine Estimated GFR/1.73 m2 Glucose Calcium Total Bilirubin AST ALT Alkaline Phosphatase Total Protein Albumin Procalcitonin Urine Color Urine Clarity Urine pH Ur Specific [place] Urine Protein Urine Ketones Urine Blood Urine Nitrite Urine Bilirubin Urine Urobilinogen Ur Leukocyte Esterase Urine RBC Urine WBC Ur Epithelial Cells Urine Crystals Urine Bacteria Urine Mucus Urine Other Ur Culture Indicated? Urine Glucose COVID-19 Source SARS-CoV-2 (PCR) Patient ABO/Rh Antibody Screen Crossmatch
--- NOTE | 2021-07-05 13:17 | W.PM.PROGNOT ---
Date of Service Date of service: 07/05/21 Time of Service: 12:00 Assessment and Plan Assessment and plan (1) Nausea & vomiting: Start date: 07/05/21 Start time: 12:00 Status: Acute Assessment and plan: no obstruction or explanation of symptoms noted on abdominal imaging in the ED. Per guardian has not been eating since Friday this is unlike patient. He started vomiting yesterday morning. Nursing concerned because it was dark colored and he has a hx of GI bleeding. NGT placed, surgery consulted, protonix drip started. all oral meds held, keppra made IV 2 units PRBC infusing, repeat h/h for 2 and again in am. (2) Upper GI bleeding: Start date: 07/05/21 Start time: 12:00 Status: Suspected Assessment and plan: as above (3) Leukocytosis: Start date: 07/05/21 Start time: 12:00 Status: Acute Assessment and plan: unsure source. could be abd, down to 16k will search for infection cultures pending. on ceftriaxone (4) Seizure disorder: Start date: 07/05/21 Start time: 12:00 Status: Chronic Assessment and plan: tegretol level continue home medications change oral keppra to IV caregiver reports increased incident of chronic seizures over past few days which they state is consistent with UTI, though there does not appear to be a UTI with cx growing gram positive viridiana less than 10,000 (5) DVT prophylaxis: Start date: 07/05/21 Start time: 12:00 Status: Acute Assessment and plan: All anticoagulants on hold (6) Discharge planning issues: Start date: 07/05/21 Start time: 12:00 Status: Acute Assessment and plan: anticipate discharge to home with resumption of services, when medically cleared discussed in Dr Malik Subjective Subjective Patient reports: other Interval history since last seen: Patient nonverbal. Hx of GI bleed. Per guardian he has not been eating since Friday which usually indicates something is wrong and he started vomiting yesterday morning. Nursing states that patient vomited dark colored vomitus last night. Hgb this am was 6.3 after repeat of 5.8. Unknown source of bleeding. He has no signs or sx of bleeding. Will repeat h/h around 1400 and in am. K 3.4. Suspicious for intrabdominal process d/t hx of GI bleeding, vomiting, loss of appetite. Patient was showing signs of c/o pain to legs; however with palpation to LLQ he also did show facial signs. Surgery consulted, NGT placed with LIS, NPO, yaya IV, await and see what surgery states. CT did not show anything however images were not remarkable in appearance d/t motion artifact. Guardian notified and agreeable. Exam Narrative Exam Narrative: frail, chronically ill appearing, laying in bed facing the wall on right side, with abd upright eyes open, does give away pain with grimacing resp even and labored, LSC anteriorly, can not listen posteriorly ext contracted with no edema, abd flat, pain to palpation to LLQ and some mid epigastric Const General: other Nutritional Appearance: cachectic Objective Last Vital Signs Temp 36.8 C 07/05/21 12:59 Pulse 61 07/05/21 12:59 Resp 17 07/05/21 12:59 BP 119/60 07/05/21 12:59 Pulse Ox 100 07/05/21 12:59 Laboratory Results - last 24 hr 07/04/21 07/04/21 07/04/21 08:10 15:05 15:26 WBC RBC Hgb Hct MCV MCH MCHC RDW Plt Count MPV Immature Gran % Neutrophils % Lymphocytes % Monocytes % Eosinophils % Basophils % Nucleated RBC % Absolute Neutrophils Absolute Lymphocytes Absolute Monocytes Absolute Eosinophils Absolute Basophils RBC Morphology Hypochromasia Anisocytosis Microcytosis VBG Lactate Sodium Potassium Chloride Carbon Dioxide Anion Gap BUN Creatinine Estimated GFR/1.73 m2 Glucose Calcium Total Bilirubin AST ALT Alkaline Phosphatase Total Protein Albumin Procalcitonin Urine Color Yellow Urine Clarity Sl Cloudy Urine pH 6.0 Ur Specific [place] 1.010 Urine Protein 30 H Urine Ketones 15 H Urine Blood Trace-intact H Urine Nitrite Negative Urine Bilirubin Negative Urine Urobilinogen 0.2 Ur Leukocyte Esterase Small H Urine RBC 0-2 Urine WBC >50 H Ur Epithelial Cells Rare Urine Crystals Negative Urine Bacteria Rare Urine Mucus Negative Urine Other Moderate Yeast Ur Culture Indicated? C&S Done As Ordered Urine Glucose Negative COVID-19 Source Nasal/Nares SARS-CoV-2 (PCR) Negative Patient ABO/Rh A Negative Antibody Screen NEGATIVE Crossmatch See Detail 07/04/21 07/04/21 07/05/21 15:35 15:35 06:25 WBC RBC Hgb Hct MCV MCH MCHC RDW Plt Count MPV Immature Gran % Neutrophils % Lymphocytes % Monocytes % Eosinophils % Basophils % Nucleated RBC % Absolute Neutrophils Absolute Lymphocytes Absolute Monocytes Absolute Eosinophils Absolute Basophils RBC Morphology Hypochromasia Anisocytosis Microcytosis VBG Lactate 1.6 H Sodium 152 H 148 H Potassium 3.6 3.4 L Chloride 116 H 115 H Carbon Dioxide 25.3 26.5 Anion Gap 10.7 6.5 BUN 17 9 D Creatinine 0.9 0.7 Estimated GFR/1.73 m2 >= 60.00 >= 60.00 Glucose 122 H 115 H Calcium 9.0 8.6 Total Bilirubin 0.2 AST 30 ALT 60 Alkaline Phosphatase 74 Total Protein 6.1 L Albumin 2.6 L Procalcitonin 0.1 Urine Color Urine Clarity Urine pH Ur Specific [place] Urine Protein Urine Ketones Urine Blood Urine Nitrite Urine Bilirubin Urine Urobilinogen Ur Leukocyte Esterase Urine RBC Urine WBC Ur Epithelial Cells Urine Crystals Urine Bacteria Urine Mucus Urine Other Ur Culture Indicated? Urine Glucose COVID-19 Source SARS-CoV-2 (PCR) Patient ABO/Rh Antibody Screen Crossmatch 07/05/21 07/05/21 06:25 08:05 WBC 16.57 H D RBC 3.50 L Hgb 5.8 L* D 6.3 L* Hct 23.1 L D 25.6 L MCV 66.0 L MCH 16.6 L MCHC 25.1 L RDW 22.8 H Plt Count 579 H D MPV 11.1 H Immature Gran % 0.6 Neutrophils % 83.5 Lymphocytes % 10.4 Monocytes % 4.8 Eosinophils % 0.5 Basophils % 0.2 Nucleated RBC % 0.1 Absolute Neutrophils 13.84 H Absolute Lymphocytes 1.72 Absolute Monocytes 0.80 Absolute Eosinophils 0.08 Absolute Basophils 0.03 RBC Morphology See Below Hypochromasia 3+ Anisocytosis 2+ Microcytosis 2+ VBG Lactate Sodium Potassium Chloride Carbon Dioxide Anion Gap BUN Creatinine Estimated GFR/1.73 m2 Glucose Calcium Total Bilirubin AST ALT Alkaline Phosphatase Total Protein Albumin Procalcitonin Urine Color Urine Clarity Urine pH Ur Specific [place] Urine Protein Urine Ketones Urine Blood Urine Nitrite Urine Bilirubin Urine Urobilinogen Ur Leukocyte Esterase Urine RBC Urine WBC Ur Epithelial Cells Urine Crystals Urine Bacteria Urine Mucus Urine Other Ur Culture Indicated? Urine Glucose COVID-19 Source SARS-CoV-2 (PCR) Patient ABO/Rh Antibody Screen Crossmatch
[2021-07-05] MEDS: Pantoprazole 40 MG VIAL 80 MG IVP ×2 (13:23→20:21)
[2021-07-05] MEDS: Water,Injection,Sterile 10 ML VIAL ×2 (13:24)
[2021-07-05] MEDS: POTASSIUM CHLORIDE 20 MEQ/100 ML BAG 50 MEQ IVPB (13:25)
[2021-07-05] MEDS: levETIRAcetam 750 MG in Normal Saline 100 ML 400 MG IVPB (16:17)
[2021-07-05] MEDS: PANTOPRAZOLE 80 MG in Normal Saline 100 ML 10 MG IV (17:19)
[2021-07-05] MEDS: cefTRIAXone 1 GM/50 ML BAG IVPB (20:22)
[2021-07-05 23:45] LABS: HCT 36.4 % (40.0-50.0); HGB 10.3 g/dL (13.5-17.5)
--- NOTE | 2021-07-06 | DI.US_ITS ---
Exam(s) US ABDOMEN EXAM: US ABDOMEN CLINICAL HISTORY: suspect abd bleed, TECHNIQUE: Ultrasound abdomen performed using standard protocol. COMPARISON: CT CT ABDOMEN PELVIS W from 07/04/2021 FINDINGS: LIVER: Normal size and echogenicity. No focal liver lesions are seen.. GALLBLADDER: Sludge. No evidence of cholelithiasis. No evidence of wall thickening. No pericholecyst ic fluid identified. GRACIA'S SIGN: Negative. BILIARY SYSTEM: No intrahepatic or extrahepatic biliary ductal dilation. KIDNEYS: Kidneys are symmetric in size. Numerous calcifications throughout both kidneys. No evidenc e of hydronephrosis. No renal mass or cyst identified. PANCREAS: Normal where visualized. SPLEEN: Not well seen. ABDOMINAL AORTA AND IVC: Aorta obscured by bowel gas. IVC visualized portions normal caliber. ASCITES: Small amount of fluid seen around ventriculoperitoneal shunt in the midline of the abdomen.. Bladder: Unremarkable. IMPRESSION: Medullary nephrocalcinosis. No hydronephrosis. Gallbladder sludge. Ventriculoperitoneal shunt with a small amount of surrounding fluid. No fluid was visible on the pr ior CT. DATA REPOSITORY:
[2021-07-06] MEDS: Normal Saline 500 ML 30 ML IV (01:20)
[2021-07-06] MEDS: levETIRAcetam 750 MG in Normal Saline 100 ML 400 MG IVPB (01:24)
[2021-07-06] MEDS: Normal Saline Flush 10 ML SYR IVP ×3 (01:24→11:56)
[2021-07-06] MEDS: POTASSIUM CHLORIDE/D5-0.45NACL 1,000 ML 100 MEQ IV (04:34)
[2021-07-06] MEDS: Nystatin CREAM 15 GM TUBE TP (04:41)
[2021-07-06 06:51] LABS: Abs Immature Grans 0.04 10^3/uL (0.0-0.06); Absolute Basophil Count 0.07 10^3/uL (0.0-0.2); Absolute Lymphocyte Count 1.02 10^3/uL (1.2-3.4); Absolute Monocyte Count 0.63 10^3/uL (0.1-0.8); Absolute Neutrophil Count 7.33 10^3/uL (1.2-6.7); Basophils % 0.7; Eosinophils % 3.2; HCT 40.1 % (40.0-50.0); Immature Grans % 0.4; Lymphocytes % 10.9; MCH 20.1 pg (27.0-33.0); MCHC 27.4 % (32.0-36.0); MCV 73.3 fL (80-95); Monocytes % 6.7; Neutrophils % 78.1; Nucleated RBC 0.5 % (0.0-0.3); Platelet Count 392 10^3/uL (130-400); RBC 5.47 10^6/uL (4.36-5.78); RDW 23.6 % (11.8-14.1); RDW-SD 60.6 fL; WBC 9.39 10^3/uL (4.4-10.8)
[2021-07-06 07:02] LABS: Anion Gap 6.5 mmol/L (3-11); BUN 3 mg/dL (7-18); CO2 25.5 mmol/L (21.0-32.0); CREATININE 0.6 mg/dL (0.70-1.30); Calcium 8.3 mg/dL (8.5-10.1); Chloride 116 mmol/L (98-107); Glucose 111 mg/dL (74-106); Magnesium 1.8 mg/dL (1.8-2.4); Potassium 3.8 mmol/L (3.5-5.1); Sodium 148 mmol/L (136-145)
[2021-07-06 07:08] LABS: Anisocytosis 2+; Diff Comment Diff Reviewed; Hypochromasia 2+; Microcytosis 2+; Polychromasia Present
[2021-07-06] MEDS: Pantoprazole 40 MG VIAL 80 MG IVP (07:37)
[2021-07-06 08:03] VITALS: BP 94/55; PULSE 52; RESP 15; TEMP 36.7; O2SAT 98
--- NOTE | 2021-07-06 08:48 | PGE_ITS ---
Date of Service Date of service: 07/06/21 Time of Service: 10:24 Assessment and Plan Assessment and plan (1) Nausea & vomiting: Status: Acute Assessment and plan: -Resolved -Recommend trial of PO diet -Abdominal US personally reviewed without any evidence of acute etiology; cholelithiasis present without evidence of cholecystitis; symptomatic cholelithiasis could be considered if these symptoms continue; uncertain if guardian would want to proceed with surgery for him. Palliative care to weigh in on decision making and goals of care. (2) Upper GI bleeding: Status: Suspected Assessment and plan: -Hemoglobin is 11 this morning and emesis has resolved -Referral for [facility] follow up being made, EGD on hold unless becomes emergent -Patient does not have any IV access, EJ stick attempted by [employer]. -Asked to place TLC for access/blood draws. After multiple conversations between different caretakers and patient's guardian who was present at the bedside, we determined he was very high risk of pulling TLC out, concern for infection secondary to drooling/constantly touching neck, etc. Consent was obtained and Ultrasound used to visualize his left IJ which was full and easily accessible. Due to concern for potential complication/difficulty from care givers and difficulty maintaining sterility of the line we decided it was best to hold off. OK to trial PO intake. If TLC should be necessary at any point, I am readily available to place it. (3) Leukocytosis: Status: Acute Assessment and plan: -UA w/ colonization; leukocytosis has resolved today -Abdominal US reviewed (4) Seizure disorder: Status: Chronic (5) DVT prophylaxis: Status: Acute (6) Discharge planning issues: Status: Acute Subjective Subjective Patient reports: no new complaints, feels better and afebrile; denies nausea or vomiting Exam Const General: comfortable and frail appearing Nutritional Appearance: cachectic and underweight Neck Neck: normal visual inspection Resp Effort & Inspection: normal respiratory effort, no cough, no respiratory distress and not tachypneic Cardio Rate: regular rate Rhythm: regular rhythm GI Inspection: normal to inspection and scaphoid Palpation: soft, no guarding and nontender Extrem General: other (chronic contractures, spastic quadriplegia) Objective Last Vital Signs Temp 98.1 F 07/06/21 08:03 Pulse 52 L 07/06/21 08:03 Resp 15 07/06/21 08:03 BP 94/55 L 07/06/21 08:03 Pulse Ox 98 07/06/21 08:03 Laboratory Results - last 24 hr 07/04/21 07/05/21 07/05/21 08:10 14:00 17:47 WBC RBC Hgb Cancelled Cancelled Hct Cancelled Cancelled MCV MCH MCHC RDW Plt Count MPV Immature Gran % Neutrophils % Lymphocytes % Monocytes % Eosinophils % Basophils % Nucleated RBC % Absolute Neutrophils Absolute Lymphocytes Absolute Monocytes Absolute Eosinophils Absolute Basophils RBC Morphology Polychromasia Hypochromasia Anisocytosis Microcytosis Sodium Potassium Chloride Carbon Dioxide Anion Gap BUN Creatinine Estimated GFR/1.73 m2 Glucose Calcium Magnesium Patient ABO/Rh A Negative Antibody Screen NEGATIVE Crossmatch See Detail 07/05/21 07/05/21 07/05/21 18:00 23:40 23:47 WBC RBC Hgb Cancelled 10.3 L D Cancelled Hct Cancelled 36.4 L D Cancelled MCV MCH MCHC RDW Plt Count MPV Immature Gran % Neutrophils % Lymphocytes % Monocytes % Eosinophils % Basophils % Nucleated RBC % Absolute Neutrophils Absolute Lymphocytes Absolute Monocytes Absolute Eosinophils Absolute Basophils RBC Morphology Polychromasia Hypochromasia Anisocytosis Microcytosis Sodium Potassium Chloride Carbon Dioxide Anion Gap BUN Creatinine Estimated GFR/1.73 m2 Glucose Calcium Magnesium Patient ABO/Rh Antibody Screen Crossmatch 07/06/21 07/06/21 06:04 06:30 WBC 9.39 D RBC 5.47 Hgb 11.0 L Hct 40.1 MCV 73.3 L MCH 20.1 L MCHC 27.4 L RDW 23.6 H Plt Count 392 D MPV Immature Gran % 0.4 Neutrophils % 78.1 Lymphocytes % 10.9 Monocytes % 6.7 Eosinophils % 3.2 Basophils % 0.7 Nucleated RBC % 0.5 H Absolute Neutrophils 7.33 H Absolute Lymphocytes 1.02 L Absolute Monocytes 0.63 Absolute Eosinophils 0.30 Absolute Basophils 0.07 RBC Morphology See Below Polychromasia Present Hypochromasia 2+ Anisocytosis 2+ Microcytosis 2+ Sodium 148 H Potassium 3.8 Chloride 116 H Carbon Dioxide 25.5 Anion Gap 6.5 BUN 3 L Creatinine 0.6 L Estimated GFR/1.73 m2 >= 60.00 Glucose 111 H Calcium 8.3 L Magnesium 1.8 Patient ABO/Rh Antibody Screen Crossmatch
[2021-07-06] MEDS: Acetaminophen 650 MG SUPP PR ×3 (09:19→21:15)
--- NOTE | 2021-07-06 09:40 | W.PM.PROGNOT ---
Date of Service Date of service: 07/06/21 Time of Service: :40 Assessment and Plan Assessment and plan (1) Nausea & vomiting: Start date: 07/06/21 Start time: :40 Status: Acute Assessment and plan: No vomiting since admission, Will obtain u/s today, concern for possible peritonitis or appendicitis WBC down from 27 k to 9 k Ceftriaxone day 2 continue Order for midline placed as his peripheral line blew and he has ecchymosis with edema to left arm, order for midline placed. Anesthesia consulted for line (2) Upper GI bleeding: Start date: 07/06/21 Start time: 09:40 Status: Suspected Assessment and plan: as above suspected getting u/s (3) Leukocytosis: Start date: 07/06/21 Start time: :40 Status: Acute Assessment and plan: unknown source Improved with ceftriaxone as above (4) Seizure disorder: Start date: 07/06/21 Start time: :40 Status: Chronic Assessment and plan: continue keppra IV, no seizures since admission (5) DVT prophylaxis: Start date: 07/06/21 Start time: :40 Status: Acute Assessment and plan: All anticoagulants on hold (6) Discharge planning issues: Start date: 07/06/21 Start time: :40 Status: Acute Assessment and plan: anticipate discharge to home with resumption of services, when medically cleared discussed in Dr Malik Subjective Subjective Patient reports: other Interval history since last seen: Patient urinalysis is revealing no UTI. Likely colonization as he only grew less than 10,000 for yeast and gram positive viridiana. He is having pain with RLQ, unable to decifer if pain is worse with palpation when pushing in and out. he also is having pain to mid gastric abd. H/H stable after 2 units PRBC. He is npo, tried NGT which was not successful. This am his IV blew potassium and D5 infusing at the time, therefore will have midline placed as he also needs keppra. Surgery to continue following. Exam Narrative Exam Narrative: frail, chronically ill appearing, laying in bed facing the wall on right side, with abd upright eyes open, does give away pain with grimacing resp even and labored, LSC anteriorly, can not listen posteriorly ext contracted with no edema, abd flat, pain to palpation to RLQ and some mid epigastric Const General: other Nutritional Appearance: cachectic Objective Last Vital Signs Temp 36.7 C 07/06/21 08:03 Pulse 52 L 07/06/21 08:03 Resp 15 07/06/21 08:03 BP 94/55 L 07/06/21 08:03 Pulse Ox 98 07/06/21 08:03 Laboratory Results - last 24 hr 07/04/21 07/05/21 07/05/21 08:10 14:00 17:47 WBC RBC Hgb Cancelled Cancelled Hct Cancelled Cancelled MCV MCH MCHC RDW Plt Count MPV Immature Gran % Neutrophils % Lymphocytes % Monocytes % Eosinophils % Basophils % Nucleated RBC % Absolute Neutrophils Absolute Lymphocytes Absolute Monocytes Absolute Eosinophils Absolute Basophils RBC Morphology Polychromasia Hypochromasia Anisocytosis Microcytosis Sodium Potassium Chloride Carbon Dioxide Anion Gap BUN Creatinine Estimated GFR/1.73 m2 Glucose Calcium Magnesium Patient ABO/Rh A Negative Antibody Screen NEGATIVE Crossmatch See Detail 07/05/21 07/05/21 07/05/21 18:00 23:40 23:47 WBC RBC Hgb Cancelled 10.3 L D Cancelled Hct Cancelled 36.4 L D Cancelled MCV MCH MCHC RDW Plt Count MPV Immature Gran % Neutrophils % Lymphocytes % Monocytes % Eosinophils % Basophils % Nucleated RBC % Absolute Neutrophils Absolute Lymphocytes Absolute Monocytes Absolute Eosinophils Absolute Basophils RBC Morphology Polychromasia Hypochromasia Anisocytosis Microcytosis Sodium Potassium Chloride Carbon Dioxide Anion Gap BUN Creatinine Estimated GFR/1.73 m2 Glucose Calcium Magnesium Patient ABO/Rh Antibody Screen Crossmatch 07/06/21 07/06/21 06:04 06:30 WBC 9.39 D RBC 5.47 Hgb 11.0 L Hct 40.1 MCV 73.3 L MCH 20.1 L MCHC 27.4 L RDW 23.6 H Plt Count 392 D MPV Immature Gran % 0.4 Neutrophils % 78.1 Lymphocytes % 10.9 Monocytes % 6.7 Eosinophils % 3.2 Basophils % 0.7 Nucleated RBC % 0.5 H Absolute Neutrophils 7.33 H Absolute Lymphocytes 1.02 L Absolute Monocytes 0.63 Absolute Eosinophils 0.30 Absolute Basophils 0.07 RBC Morphology See Below Polychromasia Present Hypochromasia 2+ Anisocytosis 2+ Microcytosis 2+ Sodium 148 H Potassium 3.8 Chloride 116 H Carbon Dioxide 25.5 Anion Gap 6.5 BUN 3 L Creatinine 0.6 L Estimated GFR/1.73 m2 >= 60.00 Glucose 111 H Calcium 8.3 L Magnesium 1.8 Patient ABO/Rh Antibody Screen Crossmatch
--- NOTE | 2021-07-06 10:25 | CMPROGNOTE_ITS ---
- If Service Date Differs Date of service: 07/06/21 Time of Service: 10:25 Care Management Progress Note S/O: Marc was lying in bed resting when CM met with him. CM spoke to his guardian, Minnie, who stated that Marc likes to listen to music, and she has been playing music for him to help keep him calm. She also brought in his specialized w/c today. Per report, his diet will be advanced as tolerated, and if he is able to tolerate food, he will likely return home. He will likely have an EGD outpatient. CM will continue to follow. A: Marc is a 35 year old male admitted to [facility] on 07/04/21 with dehydration, nausea & vomiting. P: Marc will return home with his caregiver once he is medically cleared. He will follow up with his PCP and transport with his caregiver. CM will continue to follow.
--- NOTE | 2021-07-06 11:03 | NUR.NOTE ---
Nursing Note: Right arm evaluated for Midline, unable to fine suitable size vein. Very difficult to manipulate arm due to contractors. Left arm reveals swelling due to IV infiltrate. Provider notified that I am unable to insert Midline.
--- NOTE | 2021-07-06 13:57 | W.PALLCONSUL ---
Date of service: 07/06/21 Time of Service: 16:21 History of Present Illness Narrative: Marc Holloway is a 35 year old with a past medical history significant for Cerebral Palsy, hydrocephalus, blindness, s/p JUMPBASTING LINING BASTER shunt, seizure disorder, anxiety who is currently hospitalized for N/V, seizures and suspected upper GI bleed. He received a blood transfusion yesterday with stabilization of his Hgb today. Palliative care was consulted to discuss goals of care. He has a guardian, Minnie and a caregiver, Ashley. He has a COLST from 2017 which states that he is a DNR, he would accept intubation for a trial period, and he would accept a feeding tube for a trial period. This was discussed with both Nancy and his Guardian, Minnie. Nancy is a close family friend/support person to Marc. She is also a nurse. Nancy's mother took care of Marc for several years prior to her passing. Nancy explained that he has had a feeding tube in the past and it did not contribute to him having a good quality of life. In fact, they never used it and it leaked while it was in place and after it was removed. Nancy reports that it has been unanimously decided with his care team that the goal is quality of life over quantity. They do not want him to have another feeding tube. This was discussed with his guardian who agrees. His care team is aware that he is at risk for aspiration but they allow him to eat pureed foods and drink liquids and accept the risk in order for him to have a good quality of life. They would be OK with PICC or midline in left arm only, because he cannot reach it (as he would be able to on the right). No central line, which would be within his reach and carry too much risk. They would not want him to be on a ventilator. We updated a COLST form via phone, Minnie will sign the form when she comes in to visit next week. During the visit, he was being fed pudding and juice, he frequently coughs while eating and drinking, which is his baseline. Nancy reports that he has been slowly declining over the last several years. He has pain, he is on scheduled APAP, which appears to work well. He has previously had a good appetite. He has lost about 10 pounds over the last couple of months +/-. Nancy is questioning Marinol to improve his appetite, which would be an appropriate intervention to try. Assessment and Plan Assessment and plan (1) Cerebral palsy: Status: Chronic Qualifiers: Cerebral palsy type: spastic quadriplegic Qualified Code(s): G80.0 - Spastic quadriplegic cerebral palsy (2) Hydrocephalus: Status: Chronic Qualifiers: Hydrocephalus type: unspecified Qualified Code(s): G91.9 - Hydrocephalus, unspecified (3) Status post ventriculoperitoneal shunt: Status: Chronic (4) Epilepsy: Status: Chronic Qualifiers: Epilepsy type: partial symptomatic Partial seizure type: with simple partial seizures Intractability: intractable Status epilepticus: without status epilepticus Qualified Code(s): G40.119 - Localization-related (focal) (partial) symptomatic epilepsy and epileptic syndromes with simple partial seizures, intractable, without status epilepticus (5) Mckenzie's esophagus: Status: Chronic (6) Bowel and bladder incontinence: Status: Chronic (7) Idiopathic scoliosis: Status: Chronic (8) Acute on chronic blood loss anemia: Status: Acute (9) Upper GI bleeding: Status: Suspected (10) Weight loss: Status: Acute (11) DNR (do not resuscitate): Status: Acute (12) DNI (do not intubate): Status: Acute (13) POLST (Physician Orders for Life-Sustaining Treatment): Status: Acute (14) Palliative care patient: Status: Acute (15) Swallowing impaired: Status: Chronic (16) Goals of care, counseling/discussion: Status: Acute Assessment and plan: Marc is a 35 year old with a past medical history significant for Cerebral Palsy, hydrocephalus, blindness, s/p JUMPBASTING LINING BASTER shunt, seizure disorder, anxiety who is currently hospitalized for N/V, seizures and suspected upper GI bleed. He received a blood transfusion yesterday with stabilization of his Hgb today. Palliative care was consulted to discuss goals of care. He has a guardian, Minnie and a caregiver, Ashley. Nancy was present for the visit and provided history. Minnie was contacted via phone and a new COLST from was completed. His care team wants the focus to be on quality of life for Marc. His COLST has been updated to state: DNR/DNI OK to transfer determine the use or limitation of Abx when an infection occurs with comfort as goal No feeding tube Trial period of IVF/TPN with goal of return to baseline. Limited additional interventions. The COLST has been signed virtually, however, Minnie will sign when she comes in to see Joshua next week. He has recently lost about 10 pounds. Consider adding marinol. His care team would like him to be followed by Palliative care. Follow up in 3 months outpatient, sooner as needed. Review of Systems Narrative: unable PFSH All Active Problems (Updated 07/06/21 @ 17:25 by Bessy Lara NP) Goals of care, counseling/discussion (Acute) Palliative care patient (Acute) POLST (Physician Orders for Life-Sustaining Treatment) (Acute) DNI (do not intubate) (Acute) DNR (do not resuscitate) (Acute) Leukocytosis (Acute) Nausea & vomiting (Acute) Weight loss (Acute) Bilateral kidney stones (Acute) Anxiety in acute stress reaction (Acute) Dental caries extending into dentin (Acute) Discharge planning issues (Acute) DVT prophylaxis (Acute) Acute on chronic blood loss anemia (Acute) Seizure disorder (Chronic) Anemia (Chronic) Right nephrolithiasis (Chronic) Epilepsy (Chronic 04/12/11) Seizure (Acute) Status post ventriculoperitoneal shunt (Chronic) GERD (gastroesophageal reflux disease) (Chronic) Vitamin D deficiency (Chronic) Focal epilepsy with impairment of consciousness, intractable (Chronic) Mental retardation (Chronic) non verbal incontinent bladder and bowel Idiopathic scoliosis (Chronic) Hydrocephalus (Chronic 04/30/14) 2014 JUMPBASTING LINING BASTER shunt malfunction and new shunt inserted at 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, GERD Anemia, chronic disease (Chronic 09/18/16) Swallowing impaired (Chronic) Medical History Aspiration pneumonia Hydronephrosis (~02/2018) s/p R PCN 03/08/18 Hypernatremia Hypokalemia Pneumonia Surgical History [facility] [employer] bilateral prox. femoral resections H/O nephrostomy History of lung surgery unknown; large scar on chest History of surgical procedure S/P ureteral stent placement (~06/28/18) 06/28/18 [facility]; LEFT-kb SHUNT JUMPBASTING LINING BASTER SHUNT; revision in 2015 Status post laser lithotripsy of ureteral calculus Family History Mother , AGE 40 Cancer Father No problems noted. Sister Cancer Maternal Grandfather , AGE 73 Cancer Maternal Grandmother , AGE 77 Cancer Brother , MVA AGE 10 No problems noted. Social History Smoking/Tobacco Use Status: Never Smoking risk assessment performed?: Yes Alcohol Intake: never Drug use: Never Substance use type: does not use Caregiver/Support person: Yes Household members: caregiver Housing: house Number of Children: 0 Pets and animals: Yes Pets and animals: dog(s) Sexually active: No What is your relationship status?: never How often do you talk on the phone with friends or family?: never How often do you get together with friends or relatives?: decline to answer How often do you attend spiritism or mosque services?: decline to answer Do you belong to any clubs or organized social groups?: decline to answer Panel score (0-1 are the most socially isolated patients): 0 What type of physical activity do you participate in: other Details: bouncing Duration: < 15 minutes/day Latonya/Religious: None Special latonya needs: No Seatbelt use: always Drive intox or ride w/intox reach lift truck driver: No Do you feel safe at home: Yes Do you feel safe in your relationship?: Yes Exam Narrative Exam Narrative: General: Very pleasant, young man, sitting up in his wheelchair being fed. He is nonverbal. HEENT: hydrocephalus, drooling and sneezing frequently. Neck: supple, no JVD. Respiratory: respirations appear unlabored, +coughing frequently while eating/drinking. Extremities: right arm contracted, very thin lower extremities, no edema, right foot is turned laterally. Skin: no rashes or lesions noted. Results Last Vital Signs Temp 36.7 C 07/06/21 08:03 Pulse 52 L 07/06/21 08:03 Resp 15 07/06/21 08:03 BP 94/55 L 07/06/21 08:03 Pulse Ox 98 07/06/21 08:03 Labs Result diagrams: 07/06/21 06:30 07/06/21 06:04 Labs: Laboratory Results - last 24 hr 07/04/21 07/05/21 07/05/21 08:10 14:00 17:47 WBC RBC Hgb Cancelled Cancelled Hct Cancelled Cancelled MCV MCH MCHC RDW Plt Count MPV Immature Gran % Neutrophils % Lymphocytes % Monocytes % Eosinophils % Basophils % Nucleated RBC % Absolute Neutrophils Absolute Lymphocytes Absolute Monocytes Absolute Eosinophils Absolute Basophils RBC Morphology Polychromasia Hypochromasia Anisocytosis Microcytosis Sodium Potassium Chloride Carbon Dioxide Anion Gap BUN Creatinine Estimated GFR/1.73 m2 Glucose Calcium Magnesium Patient ABO/Rh A Negative Antibody Screen NEGATIVE Crossmatch See Detail 07/05/21 07/05/21 07/05/21 18:00 23:40 23:47 WBC RBC Hgb Cancelled 10.3 L D Cancelled Hct Cancelled 36.4 L D Cancelled MCV MCH MCHC RDW Plt Count MPV Immature Gran % Neutrophils % Lymphocytes % Monocytes % Eosinophils % Basophils % Nucleated RBC % Absolute Neutrophils Absolute Lymphocytes Absolute Monocytes Absolute Eosinophils Absolute Basophils RBC Morphology Polychromasia Hypochromasia Anisocytosis Microcytosis Sodium Potassium Chloride Carbon Dioxide Anion Gap BUN Creatinine Estimated GFR/1.73 m2 Glucose Calcium Magnesium Patient ABO/Rh Antibody Screen Crossmatch 07/06/21 07/06/21 06:04 06:30 WBC 9.39 D RBC 5.47 Hgb 11.0 L Hct 40.1 MCV 73.3 L MCH 20.1 L MCHC 27.4 L RDW 23.6 H Plt Count 392 D MPV Immature Gran % 0.4 Neutrophils % 78.1 Lymphocytes % 10.9 Monocytes % 6.7 Eosinophils % 3.2 Basophils % 0.7 Nucleated RBC % 0.5 H Absolute Neutrophils 7.33 H Absolute Lymphocytes 1.02 L Absolute Monocytes 0.63 Absolute Eosinophils 0.30 Absolute Basophils 0.07 RBC Morphology See Below Polychromasia Present Hypochromasia 2+ Anisocytosis 2+ Microcytosis 2+ Sodium 148 H Potassium 3.8 Chloride 116 H Carbon Dioxide 25.5 Anion Gap 6.5 BUN 3 L Creatinine 0.6 L Estimated GFR/1.73 m2 >= 60.00 Glucose 111 H Calcium 8.3 L Magnesium 1.8 Patient ABO/Rh Antibody Screen Crossmatch
--- NOTE | 2021-07-06 14:11 | W.NUTCONSULT ---
Date of service: 07/06/21 Time of Service: 14:11 Nutritional Consult ASSESSMENT: 35 year old MR, Cerebral palsy with n/v and weight loss with BMI of 12 indicating severe malnutrition. Last meal documented by care givers as 06/30/21. Usual body weight: 60-70 lbs, about 10 lbs under baseline. Continues NPO for possible peritonitis. At high nutritional risk. At high risk for skin breakdown. Bolster/turn q 2 hours At high risk for refeeding syndrome if TPN initiated. Recommend starting at 25-50% of nutrient needs and monitor/ adjust as tolerated. Estimated Needs: 800-1000 kcal, 35-40 g protein, 900 ml fluid NUTRITIONAL DIAGNOSIS: severe malnutrition as evidenced by significant weight loss, prolonger period of inadequate nutrient intake, low BMI INTERVENTION: None at this time. If nutrition support considered will provide TPN recommendations. MONITORING AND EVALUATION: weight, labs, nutrient intake. Time Spent in Nutritional Counseling and Treatment: 10
[2021-07-06 14:33] VITALS: BP 97/59; PULSE 57; RESP 14; TEMP 36.9; O2SAT 97
[2021-07-06] MEDS: levETIRAcetam 250 MG TAB 750 MG PO (16:13)
[2021-07-06] MEDS: Simethicone 80 MG CHEW 120 MG CH (16:22)
[2021-07-06 23:25] VITALS: BP 128/79; PULSE 62; RESP 14; TEMP 36.8; O2SAT 99
[2021-07-07] MEDS: Melatonin 3 MG TAB 6 MG PO (00:04)
[2021-07-07] MEDS: carBAMazepine 100 MG CHEW 200 MG CH ×2 (00:04→20:04)
[2021-07-07] MEDS: Pantoprazole 40 MG TABCR PO ×2 (00:04→20:05)
[2021-07-07] MEDS: Acetaminophen 650 MG SUPP PR ×2 (04:05→20:06)
[2021-07-07] MEDS: levETIRAcetam 250 MG TAB 750 MG PO (05:43)
[2021-07-07 07:02] LABS: Abs Immature Grans 0.05 10^3/uL (0.0-0.06); Absolute Basophil Count 0.06 10^3/uL (0.0-0.2); Absolute Lymphocyte Count 1.11 10^3/uL (1.2-3.4); Absolute Monocyte Count 0.63 10^3/uL (0.1-0.8); Absolute Neutrophil Count 5.23 10^3/uL (1.2-6.7); Basophils % 0.8; Eosinophils % 7.8; HCT 38.9 % (40.0-50.0); HGB 10.7 g/dL (13.5-17.5); Immature Grans % 0.7; Lymphocytes % 14.5; MCH 20.9 pg (27.0-33.0); MCHC 27.5 % (32.0-36.0); MCV 75.8 fL (80-95); MPV 10.8 fL (8.0-11.0); Monocytes % 8.2; Nucleated RBC 0.3 % (0.0-0.3); RBC 5.13 10^6/uL (4.36-5.78); RDW 24.5 % (11.8-14.1); RDW-SD 64.9 fL; WBC 7.68 10^3/uL (4.4-10.8)
[2021-07-07 07:08] LABS: Anion Gap 6.7 mmol/L (3-11); BUN 5 mg/dL (7-18); CO2 27.3 mmol/L (21.0-32.0); CREATININE 0.8 mg/dL (0.70-1.30); Calcium 8.7 mg/dL (8.5-10.1); Chloride 115 mmol/L (98-107); Glucose 118 mg/dL (74-106); Magnesium 1.9 mg/dL (1.8-2.4); Potassium 3.5 mmol/L (3.5-5.1); Sodium 149 mmol/L (136-145)
[2021-07-07 07:11] LABS: Anisocytosis 2+; Diff Comment RBC Morph Reviewed; Hypochromasia 1+; Platelet Count 367 10^3/uL (130-400)
[2021-07-07 08:35] VITALS: BP 101/57; PULSE 58; RESP 19; TEMP 36.1; O2SAT 96
[2021-07-07] MEDS: DEXTROSE 5%-WATER 1,000 ML 50 ML IV (08:52)
[2021-07-07] MEDS: Normal Saline Flush 10 ML SYR IVP ×2 (08:52→18:12)
--- NOTE | 2021-07-07 09:05 | NT_ITS ---
Date of service: 07/07/21 Time of Service: 09:05 PT Notes Visit Reasons: Dehydration July 07, 2021 Patient is a 35-year-old male, referred for PT services with the diagnosis of dehydration with history of spastic quadriplegic CP. Marc is nonambulatory and requires lawrence lift to wheelchair. He is at his baseline level of function. Upon discussion with nursing did not feel that evaluation was needed to prevent further agitation. Nursing had just transferred max assist x2 to wheelchair. Patient to be discharged home with caregiver once medically cleared. Bessy Cota,[facility] Disclaimer: This note was created using [employer] voice recognition software. It was reviewed for major content. However, there may be multiple small discrepancies and errors due to the voice recognition aspects of the software.
--- NOTE | 2021-07-07 10:15 | PGE_ITS ---
Date of Service Date of service: 07/07/21 Time of Service: 13:33 Assessment and Plan Assessment and plan (1) Nausea & vomiting: Status: Resolved Assessment and plan: -Resolved, unclear etiology -Possible symptomatic cholelithiasis vs gastritis -Trial of Marinol to help improve appetite as the patient has lost 10lbs this week (2) Upper GI bleeding: Status: Suspected Assessment and plan: -Resolved, continue treatment with PPI and carafate -Being referred back to [facility] with whom he has followed with -No plans for EGD at this time, discussed goals of care with patient's guardian yesterday at length. See palliative care note for further details. Will sign off, please do not hesitate to call for any questions/concerns. (3) Leukocytosis: Status: Resolved Assessment and plan: -Resolved, has remained afebrile (4) Seizure disorder: Status: Chronic (5) DVT prophylaxis: Status: Acute (6) Discharge planning issues: Status: Acute Subjective Subjective Patient reports: no new complaints, bowel movement and afebrile; denies nausea or vomiting Exam Const General: comfortable and frail appearing Nutritional Appearance: cachectic and underweight Neck Neck: normal visual inspection Resp Effort & Inspection: normal respiratory effort, no cough, no respiratory distress and not tachypneic Cardio Rate: regular rate Rhythm: regular rhythm GI Inspection: normal to inspection and scaphoid Palpation: soft, no guarding and nontender Extrem General: other (chronic contractures, spastic quadriplegia) Objective Last Vital Signs Temp 97.0 F L 07/07/21 08:35 Pulse 58 L 07/07/21 08:35 Resp 19 07/07/21 08:35 BP 101/57 L 07/07/21 08:35 Pulse Ox 96 07/07/21 08:35 Laboratory Results - last 24 hr 07/07/21 07/07/21 06:34 06:34 WBC 7.68 RBC 5.13 Hgb 10.7 L Hct 38.9 L MCV 75.8 L MCH 20.9 L MCHC 27.5 L RDW 24.5 H Plt Count 367 MPV 10.8 Immature Gran % 0.7 Neutrophils % 68.0 Lymphocytes % 14.5 Monocytes % 8.2 Eosinophils % 7.8 Basophils % 0.8 Nucleated RBC % 0.3 Absolute Neutrophils 5.23 Absolute Lymphocytes 1.11 L Absolute Monocytes 0.63 Absolute Eosinophils 0.60 Absolute Basophils 0.06 RBC Morphology See Below Hypochromasia 1+ Anisocytosis 2+ Sodium 149 H Potassium 3.5 Chloride 115 H Carbon Dioxide 27.3 Anion Gap 6.7 BUN 5 L Creatinine 0.8 Estimated GFR/1.73 m2 >= 60.00 Glucose 118 H Calcium 8.7 Magnesium 1.9
[2021-07-07] MEDS: Simethicone 80 MG CHEW 120 MG CH ×2 (13:08→20:03)
[2021-07-07] MEDS: Gabapentin 800 MG TAB PO ×2 (13:08→20:04)
[2021-07-07] MEDS: carBAMazepine 100 MG CHEW CH (13:08)
[2021-07-07 14:20] LABS: Anion Gap 4.7 mmol/L (3-11); BUN 6 mg/dL (7-18); CO2 29.3 mmol/L (21.0-32.0); CREATININE 0.6 mg/dL (0.70-1.30); Calcium 8.1 mg/dL (8.5-10.1); Chloride 110 mmol/L (98-107); Glucose 96 mg/dL (74-106); Potassium 3.3 mmol/L (3.5-5.1); Sodium 144 mmol/L (136-145)
--- NOTE | 2021-07-07 14:21 | PGE_ITS ---
Date of Service Date of service: 07/07/21 Time of Service: 13:00 Assessment and Plan Assessment and plan (1) Cerebral palsy: Status: Chronic Assessment and plan: Maintain Gross motor classification system at Level V functionality Will continue OOB to home wheelchair Palliative care consult completed Qualifiers: Cerebral palsy type: spastic quadriplegic Qualified Code(s): G80.0 - Spastic quadriplegic cerebral palsy (2) Electrolyte abnormality: Status: Acute Assessment and plan: Na= 144, after receiving D5W, will stop infusion at this time K = 3.3 replacement order BMP in AM (3) Hydrocephalus: Status: Chronic Assessment and plan: with ventriculoperitoneal shunt in place. shunt series on admission : Ventriculoperitoneal shunt catheters noted in place and appear grossly intact. and head CT with no acute intracranial hemorrhage, mass effect or midline shift. Qualifiers: Hydrocephalus type: unspecified Qualified Code(s): G91.9 - Hydrocephalus, unspecified (4) Epilepsy: Status: Chronic Assessment and plan: Keppra made IV as he is unable to take or tolerate orals Will continue Carbamazepine chewable order for when able to take oral Qualifiers: Epilepsy type: partial symptomatic Intractability: intractable Partial seizure type: with simple partial seizures Status epilepticus: without status epilepticus Qualified Code(s): G40.119 - Localization-related (focal) (partial) symptomatic epilepsy and epileptic syndromes with simple partial seizures, intractable, without status epilepticus (5) Mckenzie's esophagus: Status: Chronic Assessment and plan: Will continue PPI (6) Bowel and bladder incontinence: Status: Chronic Assessment and plan: Will continue home management of incontinence to maintain skin integrity and output (7) Acute on chronic blood loss anemia: Status: Acute Assessment and plan: suspect from GI bleed 2 units of PRBC received on 07/05 H&H stable, vitals stable, no evidence of ongoing bleeding Will continue to monitor CBC in AM continue PPI (8) Upper GI bleeding: Status: Suspected Assessment and plan: Will continue PPI ABD u/s on 07/06: no finding related to GIB (9) Weight loss: Status: Acute Assessment and plan: Supplements ordered for increased caloric intake (10) Palliative care patient: Status: Acute Assessment and plan: Palliative consult completed (11) Swallowing impaired: Status: Chronic Assessment and plan: Pt sitting up/ 90 degrees in home wheelchair to be fed (12) Goals of care, counseling/discussion: Status: Acute Assessment and plan: Marc is a 35 year old with a past medical history significant for Cerebral Palsy, hydrocephalus, blindness, s/p TRASHMAN shunt, seizure disorder, anxiety who is currently hospitalized for N/V, seizures and suspected upper GI bleed. He received a blood transfusion yesterday with stabilization of his Hgb today. Palliative care was consulted to discuss goals of care. He has a guardian, Minnie and a caregiver, Ashley. Nancy was present for the visit and provided history. Minnie was contacted via phone and a new COLST from was completed. His care team wants the focus to be on quality of life for Marc. His COLST has been updated to state: DNR/DNI OK to transfer determine the use or limitation of Abx when an infection occurs with comfort as goal No feeding tube Trial period of IVF/TPN with goal of return to baseline. Limited additional interventions. The COLST has been signed virtually, however, Minnie will sign when she comes in to see Joshua next week. He has recently lost about 10 pounds. Consider adding marinol. His care team would like him to be followed by Palliative care. Follow up in 3 months outpatient, sooner as needed. (13) Nausea & vomiting: Status: Resolved Assessment and plan: -Resolved, ? related to viral illness, gastritis, gi bleed or constipation antiemetics if needed. (14) Leukocytosis: Status: Resolved Assessment and plan: -Resolved, has remained afebrile, tmax past 24 hours = 98.4 (15) UTI (urinary tract infection): Status: Ruled-out Assessment and plan: Ruled out: Started on ceftriaxone for UTI; WBC =16.57 on 07/05 Downgraded to Cefdinir Diagnostic micro/ labs negative for UTI, afebrile today and WBC =7.68 Antibiotics discontinued. (16) Seizure disorder: Status: Chronic Assessment and plan: continue keppra IV, Continue Diazepam home regimen, Neurontin home dose ordered no seizures since admission (17) Constipation: Status: Acute Assessment and plan: Bowel regimen ordered and in progress As per pt's home regimen to promote BM caregiver is requesting: Miralax BID in apple juice Colace 200 mg oral TID with meals Dulcolax supp. at hs Bisacodyl 5 mg oral in AM Will continue and adjust as needed. (18) DVT prophylaxis: Status: Acute Assessment and plan: All anticoagulants on hold in setting of suspected GI bleeding (19) Discharge planning issues: Status: Acute Assessment and plan: anticipate discharge to home with resumption of services, when medically cleared discussed in Dr Malik I have independently assessed patient, reviewed documentation and assessment and plan and am in agreement. Subjective Subjective Patient reports: other Interval history since last seen: Nancy pt's pharmacy customer care specialist at the bedside. Reports that pt is not able to follow commands, is non-verbal at baseline, has congenital blindness. . Exam Narrative Exam Narrative: General: Cooperative, sitting up in his wheelchair being fed, grinding teeth, nonverbal. HEENT: drooling and clear to white rhinorrhea note . Neck: supple, no JVD. Respiratory: respirations are unlabored RR 16/min, +coughing frequently while eating/drinking. Extremities: right arm contracted, very thin lower extremities, no edema,feet misaligned Skin: no rashes or lesions noted. Const General: cooperative and no acute distress Nutritional Appearance: cachectic [facility] Head: no palpable skull fracture Eyes General: dysmorphic Neck Neck: no lymphadenopathy Chest Chest: abnormal inspection of the chest (shunt tubing noted on anterior chest wall) Resp Auscultation: clear to auscultation bilaterally (diminished) Cardio Rhythm: regular rhythm (distant) GI Inspection: non-distended (no vomiting) Palpation: soft and nontender Auscultation: normal bowel sounds and other (also heard posterior lower thoraxic areas) Skin General skin exam: no rashes or lesions noted Neuro General: patient awake Objective Last Vital Signs Temp 97.0 F L 07/07/21 08:35 Pulse 58 L 07/07/21 08:35 Resp 19 07/07/21 08:35 BP 101/57 L 07/07/21 08:35 Pulse Ox 96 07/07/21 08:35 Laboratory Results - last 24 hr 07/07/21 07/07/21 06:34 06:34 WBC 7.68 RBC 5.13 Hgb 10.7 L Hct 38.9 L MCV 75.8 L MCH 20.9 L MCHC 27.5 L RDW 24.5 H Plt Count 367 MPV 10.8 Immature Gran % 0.7 Neutrophils % 68.0 Lymphocytes % 14.5 Monocytes % 8.2 Eosinophils % 7.8 Basophils % 0.8 Nucleated RBC % 0.3 Absolute Neutrophils 5.23 Absolute Lymphocytes 1.11 L Absolute Monocytes 0.63 Absolute Eosinophils 0.60 Absolute Basophils 0.06 RBC Morphology See Below Hypochromasia 1+ Anisocytosis 2+ Sodium 149 H Potassium 3.5 Chloride 115 H Carbon Dioxide 27.3 Anion Gap 6.7 BUN 5 L Creatinine 0.8 Estimated GFR/1.73 m2 >= 60.00 Glucose 118 H Calcium 8.7 Magnesium 1.9
[2021-07-07 15:21] VITALS: BP 102/63; PULSE 60; RESP 16; TEMP 36.7; O2SAT 97
[2021-07-07] MEDS: levETIRAcetam 750 MG in Normal Saline 100 ML 400 MG IVPB (18:12)
[2021-07-07] MEDS: Normal Saline 500 ML 30 ML IV (18:12)
[2021-07-07] MEDS: Potassium Chloride 20 MEQ TABCR PO (20:03)
[2021-07-07 23:35] VITALS: BP 96/59; PULSE 60; RESP 17; TEMP 36.7; O2SAT 97
[2021-07-08] MEDS: Acetaminophen 650 MG SUPP PR ×3 (03:33→15:53)
[2021-07-08] MEDS: Normal Saline Flush 10 ML SYR IVP (05:06)
[2021-07-08] MEDS: levETIRAcetam 750 MG in Normal Saline 100 ML 400 MG IVPB (05:06)
[2021-07-08 07:32] LABS: Abs Immature Grans 0.03 10^3/uL (0.0-0.06); Absolute Basophil Count 0.03 10^3/uL (0.0-0.2); Absolute Eosinophil Count 0.55 10^3/uL (0.0-0.7); Absolute Lymphocyte Count 1.19 10^3/uL (1.2-3.4); Absolute Neutrophil Count 2.93 10^3/uL (1.2-6.7); Basophils % 0.6; Eosinophils % 10.3; HCT 39.5 % (40.0-50.0); HGB 10.6 g/dL (13.5-17.5); Immature Grans % 0.6; Lymphocytes % 22.3; MCH 20.2 pg (27.0-33.0); MCHC 26.8 % (32.0-36.0); MCV 75.2 fL (80-95); MPV 10.4 fL (8.0-11.0); Monocytes % 11.3; Neutrophils % 54.9; Nucleated RBC 0.4 % (0.0-0.3); RBC 5.25 10^6/uL (4.36-5.78); RDW 25.9 % (11.8-14.1); RDW-SD 67.5 fL; WBC 5.33 10^3/uL (4.4-10.8)
[2021-07-08 07:51] LABS: ALT 30 U/L (16-63); AST 10 U/L (15-37); Alkaline Phosphatase 68 U/L (46-116); Anion Gap 7.2 mmol/L (3-11); BUN 6 mg/dL (7-18); Bilirubin, Total 0.3 mg/dL (0.2-1.0); CO2 27.8 mmol/L (21.0-32.0); CREATININE 0.7 mg/dL (0.70-1.30); Calcium 8.6 mg/dL (8.5-10.1); Chloride 114 mmol/L (98-107); Glucose 81 mg/dL (74-106); Magnesium 1.9 mg/dL (1.8-2.4); Potassium 3.6 mmol/L (3.5-5.1); Sodium 149 mmol/L (136-145); Total Protein 5.4 g/dL (6.4-8.2)
[2021-07-08 07:54] LABS: Bilirubin, Direct < 0.1 mg/dL (0.0-0.2)
[2021-07-08 07:57] LABS: Anisocytosis 2+; Diff Comment RBC Morph Reviewed
[2021-07-08 07:58] LABS: Hypochromasia 2+; Platelet Count 332 10^3/uL (130-400)
[2021-07-08 08:20] VITALS: BP 108/56; PULSE 56; RESP 16; TEMP 36.6; O2SAT 98
[2021-07-08] MEDS: Gabapentin 800 MG TAB PO ×2 (09:00→13:17)
[2021-07-08] MEDS: carBAMazepine 100 MG CHEW 200 MG CH (09:00)
[2021-07-08] MEDS: Pantoprazole 40 MG TABCR PO (09:01)
[2021-07-08] MEDS: Polyethylene Glycol 3350 17 GM PACKET PO (09:03)
[2021-07-08] MEDS: DEXTROSE 5%-WATER 500 ML 250 ML IV (10:23)
[2021-07-08] MEDS: Sucralfate 1 GM TAB PO ×2 (13:16→15:53)
[2021-07-08] MEDS: Potassium Chloride 20 MEQ TABCR PO ×2 (13:16→16:04)
[2021-07-08] MEDS: carBAMazepine 100 MG CHEW CH (13:17)
--- NOTE | 2021-07-08 14:29 | W.PM.DS.N ---
Date of service: 07/08/21 Time of Service: 10:30 DS: Diagnosis Discharge Diagnosis (1) Nausea & vomiting: Start date: 07/08/21 Start time: 10:30 Status: Resolved Asessment and Plan: Resolved. Now eating and tolerating food and liquid. He would benefit from EGD as he was admitted with hemoglobin of 6 and required 2 units PRBC, he also had heme positive stool. He was placed on high dose protonix. Surgery consulted, d/t history he would benefit for EGD at tertiary facility. Per guardian he has been due for one through his GI at [facility]. Will call tomorrow to make appt for patient to get him in for appt. Carafate QID, protonix BID. He has not had any vomiting since admission and is now eating, he would also do better in his own environment therefore he is being discharged home to his caregivers. (2) Upper GI bleeding: Start date: 07/08/21 Start time: 10:30 Status: Suspected Asessment and Plan: Most likely he has ulcer. History of GI bleed in the past. as above (3) Leukocytosis: Start date: 07/08/21 Start time: 10:30 Status: Resolved Asessment and Plan: He received several days of antibiotics, no sign of infection, this could also have been a result of dehydration and vomiting. WBC now 5.3 (4) Seizure disorder: Start date: 07/08/21 Start time: 10:30 Status: Chronic Asessment and Plan: Tegretol level normal, no seizure activity while in the hospital continue home medications. Discussed with Dr. Malik Discharge Plan Disposition Patient Disposition: HOME Condition: Improving Discharge Details Reason For Visit: Dehydration Admit Date/Time: 07/04/21 14:50 Admit Provider: Bay Mccain Attending Provider: Bay Mccain Primary Care Provider: Pascual Johnson Hospital Course Hospital Course: 35 y.o male with hx of developmental delay issues, MR, hydrocephalus with shunt, CP, blind, epilepsy, hx of GI bleed, admitted to [facility] after not eating for 5 days then vomiting morning of admission. Evening of admission nursing stated he had dark colored vomit. Hgb on admission was 6 requiring 2 units of blood and WBC was 27 k, ceftriaxone was initiated along with IV hydration. CT scan was done but d/t motion artifact not revealing for any acute processes. On examination patient would grimace with palpation to abd. He was started on 80 mg BID dosing of protonix, tried getting NGT however he would not tolerate and surgery consulted. Due to his history they felt that EGD would be best done at tertiary center therefore conservative measures taken. After a couple days of antibiotics, patient was trialled on food. He was able to eat a little yesterday. Today he is able to eat most of his meal and taking his pills. He did have a heme positive stool, not grossly positive. He likely has an upper GI bleed and would benefit from seeing his GI physician at [facility] for EGD. Until then will give higher doses protonix po and carafate QID. Encourage PO intake. Follow up with GI and PCP in 1-2 weeks. Home Meds and New Rx's Prescriptions: New potassium chloride [Klor-Con M20] 20 mEq Tablet,Er Particles/Crystals 20 meq PO QMEALS Qty: 20 0RF Rx Instructions: can be dissolved if needed to help with taking sucralfate 1 gram Tablet 1 g PO AC & HS Qty: 120 0RF famotidine 40 mg tablet 40 mg PO BID Qty: 60 0RF Continued diazepam 5-7.5-10 mg kit 5 mg WI Q12H PRN (Reason: seizure activity) Qty: 5 5RF Rx Instructions: Administer for seizure >30 seconds. carbamazepine 100 mg tablet,chewable See Rx Instructions PO TID Qty: 450 3RF Rx Instructions: 200mg am, 100mg noon, and 200mg HS PO three times a day; gabapentin 800 mg tablet 800 mg PO TID Qty: 270 3RF levetiracetam 750 mg tablet 750 mg PO BID Qty: 180 3RF epinephrine 0.3 mg/0.3 mL auto-injector 0.3 mg IM ONCE Qty: 2 1RF Rx Instructions: PRN FOR ANAPHYLAXIS Pediatric Balanced Nutrition 0.03-1 gram-kcal/mL liquid 237 ml PO BID PRN (Reason: underweight) Qty: 7110 11RF Rx Instructions: PEDIASURE polyethylene glycol 3350 17 gram powder in packet 17 g PO DAILY 0RF simethicone [Gas-X Extra Strength] 125 mg capsule 125 mg PO AC 0RF acetaminophen 650 mg suppository 650 mg WI TID PRN0RF bisacodyl 10 mg suppository 10 mg WI DAILY PRN (Reason: constipation) Qty: 12 2RF nystatin 100,000 unit/gram cream 1 applic TP BID PRN (Reason: intertrigo) Qty: 30 5RF docusate sodium 100 mg capsule 200 mg PO TID Qty: 540 3RF pantoprazole 40 mg tablet,delayed release (DR/EC) 40 mg PO BID Qty: 180 3RF Rx Instructions: 1 TAB BID sennosides [Senna Laxative] 8.6 mg tablet 8.6 mg PO BID Qty: 180 3RF Vitamin B-6 50 mg capsule 50 mg PO DAILY Qty: 90 3RF Lactobacillus acidophilus 100 million cell capsule 100 mmu cells PO BID Qty: 180 3RF folic acid 1 mg tablet 1 mg PO DAILY Qty: 90 3RF melatonin 5 mg capsule 5 mg PO HS Qty: 90 3RF Perla Protect(dimethicone-zinc) 142 GM cream 1 gm PRN PRN0RF Discontinued famotidine 20 mg tablet 20 mg PO BID PRN (Reason: dyspepsia) Qty: 180 4RF Rx Instructions: stopped this and just using as a prn bid for illness/biopsies/stressful events Discharge Instructions Instructions: Gastrointestinal Bleeding (DC), Acute Nausea and Vomiting (GEN) Additional Instructions: You have been placed on potassium to keep your potassium elevated as it has been low while you have been here follow up with your PCP to keep monitor of this Encourage oral intake of food and fluid. Marinol can be initiated by Palliative if appetite does not improve, continue to be followed by palliative as an outpatient Famotidine has been increased to 40 mg BID at this time from 20 BID to help with GI possible bleeding. Also sulcarafate has been added as well We will call tomorrow [facility] to make appt to get patient in as soon as possible for EGD. Call to make PCP appt in next 1-2 weeks. Stand Alone Forms: Nursing Discharge Form Referrals: [facility] [Outside] ([facility] Specialist, [facility] will call to make an Appointment Friday and call patient with date and time.) Activity:: Activity as Tolerated Equipment/Supplies:: No Equipment Needed Diet:: Other Discharge Orders Discharge Orders: Discharge Order (Routine); Ordered 07/08/21 Ordered By: Brigette Portillo DS: Summary Time Spent with Patient providing and/or coordinating discharge services: Greater than 30 minutes Status at Discharge Functional status at discharge: wheelchair bound Overall status at discharge: patient is progressing back to baseline Mental Status: other Speech and Movement: other Mood: other Affect: other Exam Narrative Exam Narrative: Sitting up in wheelchair Const General: comfortable and frail appearing Nutritional Appearance: cachectic and underweight HENWI Head: normal to inspection, no palpable skull fracture, normocephalic and atraumatic Neck Neck: normal visual inspection Resp Effort & Inspection: normal respiratory effort, no cough, no respiratory distress and not tachypneic Cardio Rate: regular rate Rhythm: regular rhythm GI Inspection: normal to inspection and scaphoid Palpation: soft, no guarding and nontender Skin General skin exam: ecchymosis (left upper arm from IV infiltration) Neuro General: oriented (he can give small clues to answers, he is nonverbal) Speech: speech abnormal Extrem General: other (chronic contractures, spastic quadriplegia) Psych Mental Status: other Speech and Movement: other Mood: other Affect: other DS: Data Vitals/I&O Vitals and I&O: Vital Signs Temperature 36.6 C 07/08/21 08:20 Temperature Source Tympanic 07/08/21 08:20 Pulse 56 L 07/08/21 08:20 Pulse Rhythm Regular 07/08/21 11:29 Pulse 94 H 07/04/21 10:09 Respiratory Rate 16 07/08/21 08:20 Respiratory Effort Non-Labored 07/08/21 11:29 Respiratory Depth Normal 07/08/21 11:29 Respiratory Pattern Normal 07/08/21 11:29 Blood Pressure 108/56 L 07/08/21 08:20 Blood Pressure Mean 89 07/04/21 16:47 Blood Pressure Position Supine 07/04/21 07:14 Pulse Oximetry 98 07/08/21 08:20 Oxygen Delivery Method Room Air 07/08/21 08:20 Oxygen Flow Rate 0 07/08/21 08:20 Comment 07/05/21 23:28 Intake & Output 07/07/21 07/08/21 07/08/21 23:59 11:59 23:59 Intake Total 458.833 / 758.833 107.5 / 607.5 500 / 607.5 Balance 458.833 / 758.833 107.5 / 607.5 500 / 607.5 Intake: IV 458.833 / 458.833 107.5 / 607.5 500 / 607.5 Oral 0 / 300 Other: Urine Color Yellow Yellow Yellow Urine Appearance Clear Clear Comment no void at this time pT dry per RN report Stool Occult Blood Positive Voiding Methods Diaper Diaper Diaper Incontinent Incontinent Data Completed and Pending Completed studies during hospitalization [Text1]: FINDINGS: Study is limited due to positioning. There are 2 left parietal approach ventriculoperitoneal shunts again noted, similar in appearance and location to the prior exam.? Only 1 of these appears to be connected to a reservoir, similar to previous. No evidence intracranial hemorrhage, intra or extra-axial.? No new mass effect nor shift of midline structures.? No new obvious territorial infarction.? Some encephalomalacia in the left frontal lobe is noted.? There is no parenchymal calcification. 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 The CSF spaces are again noted be larger on the left side of the brain right, unchanged. IMPRESSION: No acute intracranial findings on this noninfused CT scan of the brain. Stable chronic findings as described above. FINDINGS: LUNGS: Clear. No pleural abnormality seen. HEART: Normal. MEDIASTINUM: Normal. OTHER FINDINGS: None. IMPRESSION: No acute pulmonary findings. FINDINGS: Examination was technically limited by overlying bowel gas which obscured portions of aorta and pancreas and examination was also limited due to the patient's limited ability to cooperate with the examination. No gross liver lesion identified.? Portal venous flow is hepatopetal. There is cholelithiasis with no gross gallbladder wall thickening, pericholecystic fluid collection, or gallbladder tenderness on scanning.? There is no biliary dilatation, common appendix duct measures about 4 millimeters in diameter am eter. Spleen is unremarkable in appearance.? The patient reportedly has known medullary nephrocalcinosis and the kidneys have appearance consistent with this diagnosis.? There is no evidence of urinary tract obstruction and no hydronephrosis. IMPRESSION: Cholelithiasis.? Bilateral renal medullary nephrocalcinosis without evidence of urinary tract obstruction. FINDINGS: Examination was technically limited by overlying bowel gas which obscured portions of aorta and pancreas and examination was also limited due to the patient's limited ability to cooperate with the examination. No gross liver lesion identified.? Portal venous flow is hepatopetal. There is cholelithiasis with no gross gallbladder wall thickening, pericholecystic fluid collection, or gallbladder tenderness on scanning.? There is no biliary dilatation, common appendix duct measures about 4 millimeters in diameter am eter. Spleen is unremarkable in appearance.? The patient reportedly has known medullary nephrocalcinosis and the kidneys have appearance consistent with this diagnosis.? There is no evidence of urinary tract obstruction and no hydronephrosis. IMPRESSION: Cholelithiasis.? Bilateral renal medullary nephrocalcinosis without evidence of urinary tract obstruction. FINDINGS: CT examination of the abdomen and pelvis was performed with bolus infusion of 40 cc of Omnipaque 350. There is marked motion artifact limiting scan interpretation.? Images obtained through the lung bases are unremarkable except for probable small areas of atelectasis..? There is a ventriculo peritoneal shunt position. The liver appears normal with no evidence of a focal mass. Spleen is unremarkable in appearance.. ? Gallbladder and bile ducts are poorly visualized, a today's ultrasound showed cholelithiasis period. Pancreas is unremarkable in appearance as visualized.. Adrenals appear normal bilaterally. There is bilateral medullary nephrocalcinosis with no gross hydronephrosis or hydroureter.? No ureteral calcification.? Urinary bladder grossly unremarkable.. There is no evidence of abdominal or pelvic adenopathy. Abdominal aorta is of normal diameter and no abnormality is seen involving major visceral branches.. Appendix is not identified with certainty but there is no evidence of appendicitis..? No evidence diverticulitis or bowel obstruction. No significant abdominal wall hernia seen. Impression: No evidence of acute intra-abdominal process COMPARISON: CT HEAD WO 10/21/2018 1:11 PM FINDINGS: Limitations: The study is limited secondary to suboptimal patient positioning. Tubes, catheters and devices: There are two left parietal approach ventriculoperitoneal shunts noted, similar in appearance to the prior examination. Brain: There is no acute intracranial hemorrhage, mass effect or midline shift. There is no large acute territorial cerebral infarct. Mild encephalomalacia noted in the left frontal lobe, which may be associated with ventricular catheters. 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 Paranasal sinuses: Visualized sinuses are unremarkable. No fluid levels. Mastoid air cells: Visualized mastoid air cells are well aerated. Orbital cavities: Pthisis bulbi noted in the bilateral orbits. Bones/joints: No acute fracture. Soft tissues: Unremarkable. IMPRESSION: 1. No acute intracranial hemorrhage, mass effect or midline shift. 2. Stable chronic findings as described. FINDINGS: Airway: The airway is not well evaluated on this oblique view. Soft tissues: There are two catheters noted along the left aspect of the neck. Bones/joints: Not well evaluated due to positioning. IMPRESSION: Left neck ventricular catheters noted in place. FINDINGS: LIVER: Normal size and echogenicity.? No focal liver lesions are seen.. GALLBLADDER: Sludge.? No evidence of cholelithiasis. No evidence of wall thickening. No pericholecystic fluid identified. GRACIA'S SIGN: Negative. BILIARY SYSTEM: No intrahepatic or extrahepatic biliary ductal dilation. KIDNEYS: Kidneys are symmetric in size.? Numerous calcifications throughout both kidneys.? No evidence of hydronephrosis. No renal mass or cyst identified. PANCREAS: Normal where visualized. SPLEEN: Not well seen. ABDOMINAL AORTA AND IVC: Aorta obscured by bowel gas.? IVC visualized portions normal caliber. ASCITES: Small amount of fluid seen around ventriculoperitoneal shunt in the midline of the abdomen.. Bladder: Unremarkable. IMPRESSION: Medullary nephrocalcinosis.? No hydronephrosis. Gallbladder sludge. Ventriculoperitoneal shunt? with a small amount of surrounding fluid.? No fluid was visible on the prior CT. Labs on day of discharge: Labs from last 24 hours 07/08/21 07/08/21 06:35 06:35 WBC 5.33 D RBC 5.25 Hgb 10.6 L Hct 39.5 L MCV 75.2 L MCH 20.2 L MCHC 26.8 L RDW 25.9 H Plt Count 332 MPV 10.4 Immature Gran % 0.6 Neutrophils % 54.9 Lymphocytes % 22.3 Monocytes % 11.3 Eosinophils % 10.3 Basophils % 0.6 Nucleated RBC % 0.4 H Absolute Neutrophils 2.93 Absolute Lymphocytes 1.19 L Absolute Monocytes 0.60 Absolute Eosinophils 0.55 Absolute Basophils 0.03 RBC Morphology See Below Hypochromasia 2+ Anisocytosis 2+ Sodium 149 H Potassium 3.6 Chloride 114 H Carbon Dioxide 27.8 Anion Gap 7.2 BUN 6 L Creatinine 0.7 Estimated GFR/1.73 m2 >= 60.00 Glucose 81 Calcium 8.6 Magnesium 1.9 Total Bilirubin 0.3 Conjugated Bilirubin < 0.1 AST 10 L ALT 30 Alkaline Phosphatase 68 Total Protein 5.4 L Albumin 2.0 L Preliminary micro results at discharge 07/04/21 15:55 Blood Culture - Preliminary Blood NO GROWTH 72 HOURS 07/04/21 15:35 Blood Culture - Preliminary Blood NO GROWTH 72 HOURS PFSH All Active Problems Constipation (Acute) Electrolyte abnormality (Acute) Goals of care, counseling/discussion (Acute) Palliative care patient (Acute) POLST (Physician Orders for Life-Sustaining Treatment) (Acute) DNI (do not intubate) (Acute) DNR (do not resuscitate) (Acute) Weight loss (Acute) Bilateral kidney stones (Acute) Anxiety in acute stress reaction (Acute) Dental caries extending into dentin (Acute) Discharge planning issues (Acute) DVT prophylaxis (Acute) Acute on chronic blood loss anemia (Acute) Seizure disorder (Chronic) Anemia (Chronic) Right nephrolithiasis (Chronic) Epilepsy (Chronic 04/12/11) Seizure (Acute) Status post ventriculoperitoneal shunt (Chronic) GERD (gastroesophageal reflux disease) (Chronic) Vitamin D deficiency (Chronic) Focal epilepsy with impairment of consciousness, intractable (Chronic) Mental retardation (Chronic) non verbal incontinent bladder and bowel Idiopathic scoliosis (Chronic) Hydrocephalus (Chronic 04/30/14) 2014 [employer] shunt malfunction and new shunt inserted at [facility] Apr 2014 Cerebral palsy (Chronic) Severe; 23.5 weeks GA; Spastic quadraplegia non verbal Bowel and bladder incontinence (Chronic 01/28/14) 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 femoral resections H/O nephrostomy History of lung surgery unknown; large scar on chest History of surgical procedure S/P ureteral stent placement (~06/28/18) 06/28/18 [facility]; LEFT-kb SHUNT [employer]OL SHUNT; revision in 2015 Status post laser lithotripsy of ureteral calculus Family History Mother , AGE 40 Cancer Father No problems noted. Sister Cancer Maternal Grandfather , AGE 73 Cancer Maternal Grandmother , AGE 77 Cancer Brother , MVA AGE 10 No problems noted. Social History Smoking/Tobacco Use Status: Never Smoking risk assessment performed?: Yes Alcohol Intake: never Drug use: Never Substance use type: does not use Caregiver/Support person: Yes Household members: caregiver Housing: house Number of Children: 0 Pets and animals: Yes Pets and animals: dog(s) Sexually active: No What is your relationship status?: never How often do you talk on the phone with friends or family?: never How often do you get together with friends or relatives?: decline to answer How often do you attend methodist or advent services?: decline to answer Do you belong to any clubs or organized social groups?: decline to answer Panel score (0-1 are the most socially isolated patients): 0 What type of physical activity do you participate in: other Details: bouncing Duration: < 15 minutes/day Latonya/Mu-Ism: None Special latonya needs: No Seatbelt use: always Drive intox or ride w/intox drivers license examiner: No Do you feel safe at home: Yes Do you feel safe in your relationship?: Yes
--- NOTE | 2021-07-08 17:14 | CMDISCH_ITS ---
- If Service Date Differs Date of service: 07/08/21 Time of Service: 17:14 LACE Index Scoring Tool - Questions: Length of Stay (in days): 4 - 6 Acuity (Admit via E.D.?): Yes Comorbidities: Liver or Renal Disease E.D. Visits: 1 - Answers: Total Score: 13 Risk of Readmission: High Risk Care Management Discharge Reason for Hospitalization: Dehydration, nausea & vomiting Discharge Plan: Joshua will discharge home with his caregiver. Nancy will transport by w/c van. Joshua will need an outpatient EGD at [facility]. Caregiver will set up appointment with [facility] in the morning. Joshua will also follow up with his PCP and discharge plan of care as prescribed. Patient/Family Education Needs: Review discharge instructions, limitations, medications and plan to follow up with [facility] and community providers. ask me three.
== END 2021-07-08 16:10 | disposition home or self-care (01) | DRG 377 ==
LOC: ER 18:10 → MS 18:39
PROVIDERS: Internal Medicine; Nurse Practitioner Acute Care; Nurse Practitioner Family; Admitting Provider Internal Medicine; Emergency Provider Emergency Medicine; PCP Family Medicine; Visit Provider Internal Medicine
DX: K27.4 Chronic or unspecified peptic ulcer, site unspecified, with hemorrhage (principal); G80.0 Spastic quadriplegic cerebral palsy; G40.119 Localization-related (focal) (partial) symptomatic epilepsy and epileptic syndromes with simple partial seizures, intractable, without status epilepticus; G91.9 Hydrocephalus, unspecified; Z68.1 Body mass index [BMI] 19.9 or less, adult; D62 Acute posthemorrhagic anemia; R11.2 Nausea with vomiting, unspecified; D72.829 Elevated white blood cell count, unspecified; M41.20 Other idiopathic scoliosis, site unspecified; E86.0 Dehydration; F79 Unspecified intellectual disabilities; Z98.2 Presence of cerebrospinal fluid drainage device; R63.4 Abnormal weight loss; N20.0 Calculus of kidney; F41.9 Anxiety disorder, unspecified; K02.9 Dental caries, unspecified; K21.9 Gastro-esophageal reflux disease without esophagitis; E55.9 Vitamin D deficiency, unspecified; R15.9 Full incontinence of feces; R32 Unspecified urinary incontinence; H35.103 Retinopathy of prematurity, unspecified, bilateral; H54.3 Unqualified visual loss, both eyes; R13.10 Dysphagia, unspecified; K80.20 Calculus of gallbladder without cholecystitis without obstruction; Z66 Do not resuscitate; K22.70 Barrett's esophagus without dysplasia
CPT/HCPCS: 36415; 51701; 80048; 80053; 80076; 83690; 84145; 86850; 86900; 86901; 86920; 87040; 87635; 96361; 96365; 96375; 99285; 70360; 70450; 71045; 72050; 74018; 74177; 76700; 80156; 81003; 81015; 83605; 83735; 85014; 85018; 85025; 87086; 99223; 99232; 99233; 99239; J0295; J0696; J1953; J2405; J3480; J3490; J7060; P9016

== ENCOUNTER → 2021-10-30 00:58 | Outpatient (CLI) | payer MEDICAID, SELFPAY ==
--- NOTE | 2021-10-30 07:00 | DI.RAD_ITS ---
Exam(s) XR ABDOMEN FLAT PLATE EXAM: XR ABDOMEN FLAT PLATE CLINICAL HISTORY: monitor known stone disease,bilat kidney stones, n20.0. TECHNIQUE: 2D digital imaging was performed. COMPARISON: CR XR ABDOMEN FLAT PLATE from 11/10/2020 FINDINGS: Single view (supine) Two right-sided ventriculoperitoneal shunts are again noted. The stomach is distended with air. There is, however, air seen distal to the stomach within both sma ll and large bowel loops. Moderate amount of fecal material throughout the colon. No gross rectal f ecal impaction. Scoliosis convex left in the distal thoracic and lumbar spines again noted. Hip dysplasia and disloc ation again evident. Visualized lung bases are clear. IMPRESSION: The stomach is significantly distended with air. DATA REPOSITORY: RADIATION DOSE DELIVERED:
--- NOTE | 2021-10-30 07:04 | DI.US_ITS ---
Exam(s) US ABDOMEN RENAL EXAM: US ABDOMEN RENAL CLINICAL HISTORY: r/o gallbladder disease,gb sludge,k82.8,bilat kidney stones,n20.0 TECHNIQUE: Ultrasound of complete upper abdomen performed using standard protocol. COMPARISON: CT CT ABDOMEN PELVIS W from 07/04/2021 US US ABDOMEN from 07/06/2021 FINDINGS: There is no ascites evident. LIVER: There are no hepatic lesions evident nor obvious dilatation of intrahepatic ducts. GALLBLADDER/BILIARY: There are gallstones noted. Gallbladder is not distended. Gallbladder wall is not edematous and there is no pericholecystic fluid. The common hepatic duct isnot dilated, measuring 3-4mm at the level of gaby hepatis. PANCREAS: Difficult to visualize SPLEEN: The spleen is not enlarged and there are no intrasplenic lesions evident. KIDNEYS:Both kidneys contain numerous hyperechoic foci consistent with nephrocalcinosis, seen on prio r CT scan. No solid renal masses evident. No hydronephrosis. ABDOMINAL AORTA: There is no evidence of abdominal aortic aneurysm. IVC: Normal diameter where visualized. IMPRESSION: 1. Cholelithiasis. There few small gallstones are noted in the gallbladder lumen. The gallbladder is not distended nor edematous. CBD is not dilated. 2. Numerous calculi seen in both kidneys consistent with nephrocalcinosis, as seen on CT scan of . There is no hydronephrosis. 3. There is no ascites in the upper abdomen.. This patient has known ventriculoperitoneal shunts. DATA REPOSITORY:
== END ==
PROVIDERS: PCP Family Medicine; Visit Provider Urology
DX: N20.0 Calculus of kidney (principal); K80.20 Calculus of gallbladder without cholecystitis without obstruction; R14.0 Abdominal distension (gaseous)
CPT/HCPCS: 76770; 74018; 76700

== ENCOUNTER 2022-07-24 20:42 | Inpatient (IN) | payer MEDICAID, SELFPAY ==
--- NOTE | 2022-07-24 20:45 | DI.RAD_ITS ---
Exam(s) XR PORTABLE CHEST AP EXAM: XR PORTABLE CHEST AP CLINICAL HISTORY: fever, cough. TECHNIQUE: 2D digital imaging was performed. COMPARISON: CR,XR XR SHUNT SERIES from 07/04/2021 FINDINGS: Single AP portable view. There is shunt tubing overlying the right chest consistent with ventriculoperitoneal shunt distal tip in right upper quadrant. Patient is rotated towards the left. Heart size is upper normal. The mediastinum is not widened. Right lung is clear. There are mild increased markings the lower left lung field, possibly exaggerat ed by rotation here. There are no pleural effusions. IMPRESSION: Subtle increased left lung markings. Possibly exaggerated by rotation but cannot exclude infiltrate. Recommend nonportable PA and lateral views when clinically possible. DATA REPOSITORY: RADIATION DOSE DELIVERED:
[2022-07-24 20:47] VITALS: BP 97/58; PULSE 108; RESP 22; TEMP 36.7; O2SAT 93
--- OUTSIDE RECORDS SUMMARY | 2022-07-24 21:08 | XMS_ITS | CCD ---
Author Name Unknown Address [address] [place] [address] [id number] Organization Unknown Address [address] [place] [address] [phone] Care Team Providers Care Salesperson Jewelry Name Role Phone CHAY SNEED Attending Physician [phone] Vital Signs Unknown or Not Available. Allergies Allergy Code Allergy Type Reaction Status No Known Drug Allergies 0 No known drug allergies Active ADHESIVE 0 Allergy to substance Acti ve LATEX [id number] Allergy to substance Acti ve BEE STING 0 Allergy to substance Acti ve Procedures Unknown or Not Available. History of Immunizations Unknown or Not Available. Problems Unknown or Not Available. Results Unknown or Not Available. Active Medications Medication Code Dose Units Frequency Route Modificatio n Start Date/Time Acetaminophen 650MG Rectal Suppository 745171 650 MILLIGRAMS NEEDED EVERY 8 HOURS RECTAL 06/05/2022 12:31 Prescription Detail INSERT 650 MILLIGRAMS RECTAL NEEDED E VERY 8 HOURS Acidophilus Probiotic Blend Oral Capsule 0689582111 8 1 EACH TWICE A DAY ORAL 06/05/2022 12:31 Prescription Detail TAKE 1 EACH ORAL TWICE A DAY Perla Protect 1%-12% Topical application Cream 3546937 1 EACH NEEDED TOPICAL APPLICATION 06/05/2022 12:31 Prescription Detail 1 EACH TOPICAL APPLICATION NEEDED Bisacodyl 10MG Rectal Suppository 482338 10 MILLIGRAMS NEEDED RECTAL 023 12:31 Prescription Detail INSERT 10 MILLIGRAMS RECTAL NEEDED carBAMazepine 100MG Oral Capsule, Extended Release [id number] 100 MILLIGRAMS DAILY ORAL 12:31 Prescription Detail TAKE 100 MILLIGRAMS ORAL DAILY carBAMazepine 100MG Oral Capsule, Extended Release 682662 200 MILLIGRAMS TWICE A DAY ORAL 06/05/2022 12:31 Prescription Detail TAKE 200 MILLIGRAMS ORAL TWICE A DAY Docusate Sodium 100MG Oral Capsule, Liquid Filled 8197136 200 MILLIGRAMS THREE TIMES A DAY ORAL 06/05/2022 12:31 Prescription Detail TAKE 200 MILLIGRAMS ORAL THREE TIMES A D AY EpiPen Auto-Injector 0.3MG/0.3ML;No Stren Injection Solution 487546 1 EACH INJECTION 06/05/2022 12:31 Prescription Detail 1 EACH INJECTION Famotidine 20MG Oral Tablet 154519 20 MILLIGRAMS DAILY ORAL 023 12:31 Prescription Detail TAKE 20 MILLIGRAMS ORAL DAILY Fleet Enema Rectal Enema 081135 1 EACH NEEDED RECTAL 023 12:31 Prescription Detail INSERT 1 EACH RECTAL NEEDED Folic Acid 800 MCG Oral Tablet 0015410926 6 100 MCG DAILY ORAL 06/05/2022 12:31 Prescription Detail TAKE 100 MCG ORAL DAILY Gabapentin 800MG Oral Tablet 916667 800 MILLIGRAMS THREE TIMES A DAY ORAL 06/05/2022 12:31 Prescription Detail TAKE 800 MILLIGRAMS ORAL THREE TIMES A D AY Glycerin Suppositories Rectal Suppository 9845316511 3 1 EACH NEEDED RECTAL 06/05/2022 12:31 Prescription Detail INSERT 1 EACH RECTAL NEEDED Hydrocortisone 0.5% Topical application Ointment 675033 1 EACH TOPICAL APPLICATION 06/05/2022 12:31 Prescription Detail 1 EACH TOPICAL APPLICATION levETIRAcetam 750MG Oral Tablet 943101 750 MILLIGRAMS TWICE A DAY ORAL 06/05/2022 12:31 Prescription Detail TAKE 750 MILLIGRAMS ORAL TWICE A DAY Melatonin 5 MG Oral Capsule 774650 5 MG BEDTIME ORAL 023 12:31 Prescription Detail TAKE 5 MG ORAL BEDTIME MiraLAX 17GM/1Dose Oral Powder for Solution 049455 1 EACH DAILY ORAL 06/05/2022 12:31 Prescription Detail TAKE 1 EACH ORAL DAILY Nystatin 477910L/1GM Topical application Cream 973526 1 EACH NEEDED TOPICAL APPLICATION 06/05/2022 12:31 Prescription Detail 1 EACH TOPICAL APPLICATION NEEDED Pantoprazole Sodium 40 MG Oral Tablet, Delayed Release 569759 40 MG TWICE A DAY ORAL 06/05/2022 12:31 Prescription Detail TAKE 40 MG ORAL TWICE A DAY Sennosides 8.6MG Oral Tablet 575858 8.6 MILLIGRAMS TWICE A DAY ORAL 06/05/2022 12:31 Prescription Detail TAKE 8.6 MILLIGRAMS ORAL TWICE A DAY Simethicone 80MG Oral Tablet, Chewable 827251 80 MILLIGRAMS THREE TIMES A DAY ORAL 06/05/2022 12:31 Prescription Detail TAKE 80 MILLIGRAMS ORAL THREE TIMES A DA Y Sucralfate 1GM Oral Tablet 011197 1 GM THREE TIMES A DAY ORAL 06/05/2022 12:31 Prescription Detail TAKE 1 GM ORAL THREE TIMES A DAY Vitamin B6 50MG Oral Tablet 7297496189 1 50 MILLIGRAMS DAILY ORAL 06/05/2022 12:31 Prescription Detail TAKE 50 MILLIGRAMS ORAL DAILY Medications Administered During Visit Unknown or Not Available. Encounters Encounter Diagnosis Diagnosis Code Start Date Unspecified convulsions [id number] 06/03/19 23 Social History Unknown or Not Available. Patient Decision Aids Unknown or Not Available. Discharge Instructions You were admitted to [facility] on 06/02/2022 00:32 with a principal diagnosis of Unspecified convulsions You were discharged from [facility] on 06/05/2022 00:33 Should you have any questions prior to discharge, please contact a member of your healthcare team. If you have left the hospital and have any questions, please contact your primary care physician. Chief Complaint and Reason For Visit Unknown or Not Available. Function Status Unknown or Not Available. Plan of Care Unknown or Not Available. Referral/Transition of Care Unknown or Not Available.
--- OUTSIDE RECORDS SUMMARY | 2022-07-24 21:08 | XMS_ITS | CCD ---
Author Name Unknown Address [address] [place] [address] [phone] Organization Unknown Address [address], [place] [id number] Care Team Providers Care Band And Cuff Cutter Name Role Phone CHAY SNEED Attending Physician [phone] [place] HERNANDEZ Er Physician 1 [phone] GA HERNANDEZ Rounding (Secondary) Physician 8 [phone] YOU Heart Registered Nurse [phone] Vital Signs Vital Sign Value Unit Date/Time Recent/Initial ? BP Systolic 121 mmHg 06/01/2022 10:30 Initial VS BP Diastolic 82 mmHg 06/01/2022 10:30 Initia l VS Heart Rate 162 bpm 06/01/2022 10:30 Initial VS Body Temperature 37.1 degrees 06/01/2022 10:30 In itial VS Respiratory Rate 25 bpm 06/01/2022 11:40 In itial VS O2 % BldC Oximetry 93 % 06/01/2022 11:40 Initial VS Weight Measured 60 lbs 06/01/2022 12:28 Ini tial VS BMI (Body Mass Index) 14.38 kg/m^2 06/01/2022 21: 49 Most Recent VS Weight Measured 71.2 lbs 06/01/2022 21:49 Mos t Recent VS Height 59 in 06/01/2022 21:49 Most Rec ent VS BSA (Body Surface Area) 1.16 m^2 06/01/2022 2 1:49 Most Recent VS Respiratory Rate 16 bpm 06/05/2022 07:[address] Recent VS Heart Rate 63 bpm 06/05/2022 07:20 Most Rec ent VS O2 % BldC Oximetry 98 % 06/05/2022 07:20 Most Recent VS Body Temperature 36.3 degrees 06/05/2022 07:[address] Recent VS BP Systolic 97 mmHg 06/05/2022 13:26 Most Re cent VS BP Diastolic 65 mmHg 06/05/2022 13:26 Most R ecent VS Allergies Allergy Code Allergy Type Reaction Status No Known Drug Allergies 0 No known drug allergies Active ADHESIVE 0 Allergy to substance Acti ve LATEX [id number] Allergy to substance Acti ve BEE STING 0 Allergy to substance Acti ve Procedures Unknown or Not Available. History of Immunizations Unknown or Not Available. Problems Unknown or Not Available. Results BASIC METABOLIC PANEL (BMP) - Collect Date/Time: 06/05/2022 06:35 Test Name Code Test Result Test Units Test Ref Rang e GLUCOSE 2345-7 97 mg/dL L=70 H=116 BUN 3094-0 1 mg/dL L=6 H=25 CREATININE 2160-0 0.51 mg/dL L=0.67 H=1.17 SODIUM SERUM 2951-2 146 mmol/L L=136 H=145 POTASSIUM SERUM 2823-3 3.2 mmol/L L=3.4 H=5 .2 CHLORIDE SERUM 2075-0 113 mmol/L L=96 H=110 CARBON DIOXIDE (CO2) 2028-9 23 mmol/L L=22 H=34 ANION GAP 54456-2 9.8 mmol/L CALCIUM SERUM 51474-9 8.7 mg/dL L=8.2 H=10. 2 AGE 36 years eGFR (non-Afr.Amer.) 25059-1 >120 mL/min eGFR (Afr-Nauruan) 19537-3 >120 mL/min BASIC METABOLIC PANEL (BMP) - Collect Date/Time: 06/04/2022 10:57 Test Name Code Test Result Test Units Test Ref Rang e GLUCOSE 2345-7 111 mg/dL L=70 H=116 BUN 3094-0 2 mg/dL L=6 H=25 CREATININE 2160-0 0.63 mg/dL L=0.67 H=1.17 SODIUM SERUM 2951-2 150 mmol/L L=136 H=145 POTASSIUM SERUM 2823-3 2.9 mmol/L L=3.4 H=5 .2 CHLORIDE SERUM 2075-0 113 mmol/L L=96 H=110 CARBON DIOXIDE (CO2) 2028-9 25 mmol/L L=22 H=34 ANION GAP 69058-9 11.6 mmol/L CALCIUM SERUM 24694-4 8.9 mg/dL L=8.2 H=10. 2 AGE 36 years eGFR (non-Afr.Amer.) 17958-4 >120 mL/min eGFR (Afr-Nauruan) 15430-9 >120 mL/min BASIC METABOLIC PANEL (BMP) - Collect Date/Time: 06/03/2022 06:40 Test Name Code Test Result Test Units Test Ref Rang e GLUCOSE 2345-7 123 mg/dL L=70 H=116 BUN 3094-0 11 mg/dL L=6 H=25 CREATININE 2160-0 0.98 mg/dL L=0.67 H=1.17 SODIUM SERUM 2951-2 151 mmol/L L=136 H=145 POTASSIUM SERUM 2823-3 3.2 mmol/L L=3.4 H=5 .2 CHLORIDE SERUM 2075-0 119 mmol/L L=96 H=110 CARBON DIOXIDE (CO2) 2028-9 15 mmol/L L=22 H=34 ANION GAP 26095-0 16.7 mmol/L CALCIUM SERUM 69957-8 7.9 mg/dL L=8.2 H=10. 2 AGE 36 years eGFR (non-Afr.Amer.) 10406-2 86 mL/min eGFR (Afr-Nauruan) 22544-1 104 mL/min BASIC METABOLIC PANEL (BMP) - Collect Date/Time: 06/02/2022 07:23 Test Name Code Test Result Test Units Test Ref Rang e GLUCOSE 2345-7 60 mg/dL L=70 H=116 BUN 3094-0 18 mg/dL L=6 H=25 CREATININE 2160-0 0.79 mg/dL L=0.67 H=1.17 SODIUM SERUM 2951-2 152 mmol/L L=136 H=145 POTASSIUM SERUM 2823-3 4.1 mmol/L L=3.4 H=5 .2 CHLORIDE SERUM 2075-0 120 mmol/L L=96 H=110 CARBON DIOXIDE (CO2) 2028-9 19 mmol/L L=22 H=34 ANION GAP 41570-4 12.9 mmol/L CALCIUM SERUM 97569-5 8.6 mg/dL L=8.2 H=10. 2 AGE 36 years eGFR (non-Afr.Amer.) 44464-9 110 mL/min eGFR (Afr-Nauruan) 14197-0 >120 mL/min BASIC METABOLIC PANEL (BMP) - Collect Date/Time: 06/01/2022 11:35 Test Name Code Test Result Test Units Test Ref Rang e GLUCOSE 2345-7 108 mg/dL L=70 H=116 BUN 3094-0 15 mg/dL L=6 H=25 CREATININE 2160-0 1.31 mg/dL L=0.67 H=1.17 SODIUM SERUM 2951-2 147 mmol/L L=136 H=145 POTASSIUM SERUM 2823-3 3.3 mmol/L L=3.4 H=5 .2 CHLORIDE SERUM 2075-0 104 mmol/L L=96 H=110 CARBON DIOXIDE (CO2) 2028-9 13 mmol/L L=22 H=34 ANION GAP 06366-4 30.4 mmol/L CALCIUM SERUM 46514-6 9.5 mg/dL L=8.2 H=10. 2 AGE 36 years eGFR (non-Afr.Amer.) 40424-8 61 mL/min eGFR (Afr-Nauruan) 79355-6 74 mL/min LACTIC ACID - Collect Date/T joshua: 06/02/2022 07:23 Test Name Code Test Result Test Units Test Ref Rang e LACTIC ACID 84201-4 2.0 mmol/L L=0.7 H=2.1 LACTIC ACID - Collect Date/T joshua: 06/01/2022 11:35 Test Name Code Test Result Test Units Test Ref Rang e LACTIC ACID 88999-4 22.6 mmol/L L=0.7 H=2.1 MAGNESIUM SERUM* - Collect D ate/Time: 06/02/2022 07:23 Test Name Code Test Result Test Units Test Ref Rang e MAGNESIUM 12845-7 2.8 mg/dL L=1.8 H=2.4 MAGNESIUM SERUM* - Collect D ate/Time: 06/01/2022 11:35 Test Name Code Test Result Test Units Test Ref Rang e MAGNESIUM 14280-8 2.6 mg/dL L=1.8 H=2.4 TEGRETOL (CARBAMAZEPINE) - C ollect Date/Time: 06/01/2022 11:35 Test Name Code Test Result Test Units Test Ref Rang e CARBAMAZEPINE 3432-2 3.6 mcg/mL L=4.0 H=12. 0 CBC W/ DIFFERENTIAL* - Colle ct Date/Time: 06/05/2022 06:35 Test Name Code Test Result Test Units Test Ref Rang e WBC 6690-2 5.57 th/cmm L=5.00 H=10.00 NEUT % 56.3 % L=40.0 H=80.0 LYMPH % 28.9 % L=10.0 H=50.0 MONO % 15272-6 7.9 % L=2.0 H=12.0 EOS % 6.3 % L=0.0 H=8.0 BASO % 0.4 % L=0.0 H=3.0 IG % 2514-8 0.2 % L=0.0 H=1.1 NRBC % 66848-7 0.0 % L=0.0 H=0.0 NEUT abs count 751-8 3.1 th/cmm L=1.6 H=8. 4 LYMPH abs count 731-0 1.6 th/cmm L=1.5 H=4 .0 MONO abs count 742-7 0.4 th/cmm L=0.2 H=1. 0 EOS abs count 711-2 0.4 th/cmm L=0.0 H=0.5 BASO abs count 704-7 0.0 th/cmm L=0.0 H=0. 2 IG abs count 86356-7 0.0 th/cmm L=0.0 H=0.1 NRBC abs count 72525-5 0.0 mil/cmm L=0.0 H=0. 0 RBC 789-8 5.34 mil/cmm L=4.30 H=6.20 HEMOGLOBIN 718-7 12.4 gm/dL L=13.0 H=17.0 HEMATOCRIT 4544-3 42 % L=45 H=52 MCV 787-2 79 fL L=82 H=92 MCH 785-6 23.2 pg L=27.0 H=31.0 MCHC 786-4 29.4 % L=32.0 H=36.0 RDW-SD 788-0 52.8 fL L=39.0 H=49.0 PLATELET COUNT 777-3 229 th/cmm L=150 H=45 0 CBC W/ DIFFERENTIAL* - Ravi ct Date/Time: 06/02/2022 07:23 Test Name Code Test Result Test Units Test Ref Rang e WBC 6690-2 12.15 th/cmm L=5.00 H=10.00 NEUT % 87.1 % L=40.0 H=80.0 LYMPH % 8.5 % L=10.0 H=50.0 MONO % 83291-7 4.1 % L=2.0 H=12.0 EOS % 0.0 % L=0.0 H=8.0 BASO % 0.1 % L=0.0 H=3.0 IG % 2514-8 0.2 % L=0.0 H=1.1 NRBC % 92593-6 0.0 % L=0.0 H=0.0 NEUT abs count 751-8 10.6 th/cmm L=1.6 H=8. 4 LYMPH abs count 731-0 1.0 th/cmm L=1.5 H=4 .0 MONO abs count 742-7 0.5 th/cmm L=0.2 H=1. 0 EOS abs count 711-2 0.0 th/cmm L=0.0 H=0.5 BASO abs count 704-7 0.0 th/cmm L=0.0 H=0. 2 IG abs count 06867-3 0.0 th/cmm L=0.0 H=0.1 NRBC abs count 88601-4 0.0 mil/cmm L=0.0 H=0. 0 RBC 789-8 5.17 mil/cmm L=4.30 H=6.20 HEMOGLOBIN 718-7 12.0 gm/dL L=13.0 H=17.0 HEMATOCRIT 4544-3 40 % L=45 H=52 MCV 787-2 78 fL L=82 H=92 MCH 785-6 23.2 pg L=27.0 H=31.0 MCHC 786-4 29.8 % L=32.0 H=36.0 RDW-SD 788-0 51.5 fL L=39.0 H=49.0 PLATELET COUNT 777-3 261 th/cmm L=150 H=45 0 CBC W/ DIFFERENTIAL* - Colle ct Date/Time: 06/01/2022 11:35 Test Name Code Test Result Test Units Test Ref Rang e WBC 6690-2 22.62 th/cmm L=5.00 H=10.00 NEUT % 86.3 % L=40.0 H=80.0 LYMPH % 6.8 % L=10.0 H=50.0 MONO % 19426-3 5.9 % L=2.0 H=12.0 EOS % 0.1 % L=0.0 H=8.0 BASO % 0.4 % L=0.0 H=3.0 IG % 2514-8 0.5 % L=0.0 H=1.1 NRBC % 47141-6 0.0 % L=0.0 H=0.0 NEUT abs count 751-8 19.5 th/cmm L=1.6 H=8. 4 LYMPH abs count 731-0 1.5 th/cmm L=1.5 H=4 .0 MONO abs count 742-7 1.3 th/cmm L=0.2 H=1. 0 EOS abs count 711-2 0.0 th/cmm L=0.0 H=0.5 BASO abs count 704-7 0.1 th/cmm L=0.0 H=0. 2 IG abs count 48738-3 0.1 th/cmm L=0.0 H=0.1 NRBC abs count 55359-3 0.0 mil/cmm L=0.0 H=0. 0 RBC 789-8 6.09 mil/cmm L=4.30 H=6.20 HEMOGLOBIN 718-7 14.4 gm/dL L=13.0 H=17.0 HEMATOCRIT 4544-3 49 % L=45 H=52 MCV 787-2 81 fL L=82 H=92 MCH 785-6 23.6 pg L=27.0 H=31.0 MCHC 786-4 29.2 % L=32.0 H=36.0 RDW-SD 788-0 51.1 fL L=39.0 H=49.0 PLATELET COUNT 777-3 437 th/cmm L=150 H=45 0 LORENZO COVID FLU RSV GENEXPE RT - Collect Date/Time: 06/01/2022 12:08 Test Name Code Test Result Test Units Test Ref Rang e COVID 63893-6 NEGATIVE N/A Normal: Negati ve INFLUENZA A DNA 87803-3 NEGATIVE N/A Normal: N egative INFLUENZA B DNA 45746-3 NEGATIVE N/A Normal: N egative RSV DNA 11446-7 NEGATIVE N/A Normal: Negati ve CULT URINE CULTURE* - Colle t Date/Time: 06/01/2022 12:55 Test Name Code Test Result Test Units Test Ref Rang e COLLECTION MODE: 56626-5 STRAIGHT CATH N/A URINALYSIS WITH REFLEX CULT IF POSITIVE* - Collect Date/Time: 06/01/2022 12:55 Test Name Code Test Result Test Units Test Ref Rang e COLLECTION MODE: 99810-8 STRAIGHT CATH N/A Color 5778-6 YELLOW N/A yellow Appearance 5767-9 CLEAR N/A clear Glucose urine 11517-0 NEGATIVE N/A negative mg /dl Bilirubin 5770-3 NEGATIVE N/A negative Ketones 2514-8 NEGATIVE N/A negative mg/dl Spec gravity 5811-5 1.025 N/A 1.003 - 1.03 0 pH urine 2756-5 5.5 N/A 5.0 - 7.0 Protein 32459-9 30 N/A negative mg/dl Urobilinogen 37181-8 0.2 N/A <or= 1 EU/dl Nitrite. 5802-4 NEGATIVE N/A negative Blood 5794-3 TRACE-IN N/A negative Leukocytes. TRACE N/A negative MICROSCOPIC INDICATED N/A WBCs. 74811-6 10-25 N/A 0-5 / hpf RBCs 09632-1 5-10 N/A 0-5 / hpf Epith cells 30764-1 0-5 N/A 0-5 / hpf Cell types squamous N/A Crystals none N/A none Bacteria none N/A none Mucus 8247-9 none N/A none Casts 00727-3 none N/A none /lpf Active Medications Medication Code Dose Units Frequency Route Modificatio n Start Date/Time Acetaminophen 650MG Rectal Suppository 024959 650 MILLIGRAMS NEEDED EVERY 8 HOURS RECTAL 06/05/2022 12:31 Prescription Detail INSERT 650 MILLIGRAMS RECTAL NEEDED E VERY 8 HOURS Acidophilus Probiotic Blend Oral Capsule 0641959478 8 1 EACH TWICE A DAY ORAL 06/05/2022 12:31 Prescription Detail TAKE 1 EACH ORAL TWICE A DAY Perla Protect 1%-12% Topical application Cream 1781676 1 EACH NEEDED TOPICAL APPLICATION 06/05/2022 12:31 Prescription Detail 1 EACH TOPICAL APPLICATION NEEDED Bisacodyl 10MG Rectal Suppository 207411 10 MILLIGRAMS NEEDED RECTAL 12:31 Prescription Detail INSERT 10 MILLIGRAMS RECTAL NEEDED carBAMazepine 100MG Oral Capsule, Extended Release 321946 100 MILLIGRAMS DAILY ORAL 12:31 Prescription Detail TAKE 100 MILLIGRAMS ORAL DAILY carBAMazepine 100MG Oral Capsule, Extended Release 372520 200 MILLIGRAMS TWICE A DAY ORAL 06/05/2022 12:31 Prescription Detail TAKE 200 MILLIGRAMS ORAL TWICE A DAY Docusate Sodium 100MG Oral Capsule, Liquid Filled 8158416 200 MILLIGRAMS THREE TIMES A DAY ORAL 06/05/2022 12:31 Prescription Detail TAKE 200 MILLIGRAMS ORAL THREE TIMES A D AY EpiPen Auto-Injector 0.3MG/0.3ML;No Stren Injection Solution 846546 1 EACH INJECTION 06/05/2022 12:31 Prescription Detail 1 EACH INJECTION Famotidine 20MG Oral Tablet 828273 20 MILLIGRAMS DAILY ORAL 023 12:31 Prescription Detail TAKE 20 MILLIGRAMS ORAL DAILY Fleet Enema Rectal Enema 644176 1 EACH NEEDED RECTAL 023 12:31 Prescription Detail INSERT 1 EACH RECTAL NEEDED Folic Acid 800 MCG Oral Tablet 8122759511 6 100 MCG DAILY ORAL 06/05/2022 12:31 Prescription Detail TAKE 100 MCG ORAL DAILY Gabapentin 800MG Oral Tablet 220734 800 MILLIGRAMS THREE TIMES A DAY ORAL 06/05/2022 12:31 Prescription Detail TAKE 800 MILLIGRAMS ORAL THREE TIMES A D AY Glycerin Suppositories Rectal Suppository 9658249327 3 1 EACH NEEDED RECTAL 06/05/2022 12:31 Prescription Detail INSERT 1 EACH RECTAL NEEDED Hydrocortisone 0.5% Topical application Ointment 693028 1 EACH TOPICAL APPLICATION 06/05/2022 12:31 Prescription Detail 1 EACH TOPICAL APPLICATION levETIRAcetam 750MG Oral Tablet 337180 750 MILLIGRAMS TWICE A DAY ORAL 06/05/2022 12:31 Prescription Detail TAKE 750 MILLIGRAMS ORAL TWICE A DAY Melatonin 5 MG Oral Capsule 612370 5 MG BEDTIME ORAL 023 12:31 Prescription Detail TAKE 5 MG ORAL BEDTIME MiraLAX 17GM/1Dose Oral Powder for Solution 930092 1 EACH DAILY ORAL 06/05/2022 12:31 Prescription Detail TAKE 1 EACH ORAL DAILY Nystatin 178455W/1GM Topical application Cream 422898 1 EACH NEEDED TOPICAL APPLICATION 06/05/2022 12:31 Prescription Detail 1 EACH TOPICAL APPLICATION NEEDED Pantoprazole Sodium 40 MG Oral Tablet, Delayed Release 992655 40 MG TWICE A DAY ORAL 06/05/2022 12:31 Prescription Detail TAKE 40 MG ORAL TWICE A DAY Sennosides 8.6MG Oral Tablet 661777 8.6 MILLIGRAMS TWICE A DAY ORAL 06/05/2022 12:31 Prescription Detail TAKE 8.6 MILLIGRAMS ORAL TWICE A DAY Simethicone 80MG Oral Tablet, Chewable 885076 80 MILLIGRAMS THREE TIMES A DAY ORAL 06/05/2022 12:31 Prescription Detail TAKE 80 MILLIGRAMS ORAL THREE TIMES A DA Y Sucralfate 1GM Oral Tablet 198311 1 GM THREE TIMES A DAY ORAL 06/05/2022 12:31 Prescription Detail TAKE 1 GM ORAL THREE TIMES A DAY Vitamin B6 50MG Oral Tablet 3180073993 1 50 MILLIGRAMS DAILY ORAL 06/05/2022 12:31 Prescription Detail TAKE 50 MILLIGRAMS ORAL DAILY Medications Administered During Visit Medication Dose Units Frequency Route Date/Time of Last Dose LevETIRAcetam IVPB PREMIX: 1000MG/100ML 1000 MG X1 IVPB 06/01/2022 11:4 3 SODIUM CHLORIDE 0.9% 500ML 500 ML X1 IV 06/01/2022 11:51 MIDAZOLAM INJ SDV: 5MG/5ML 5 MG X1 IVP 06/01/2022 11:30 POTASSIUM CHL IN NS: 20mEq/1000ML 20 MEQ X1 IV 06/01/2022 16:16 LevETIRAcetam IVPB PREMIX: 500MG/100ML 500 MG X1 IVPB 06/01/2022 13:4 3 VALPROATE SOD INJ SDV: 500MG/5ML 1000 MG X1 IVPB 06/01/2022 14:49 CefTRIAXone IVPB: 1GM/50ML 1 GM X1 IVP B 06/01/2022 14:31 SODIUM CHLORIDE 0.9% 1000ML 1000 ML CONT IV 06/02/2022 07:34 SODIUM CHLORIDE 0.9% 1000ML 1000 ML X1 IV 06/01/2022 16:16 ACETAMINOPHEN SUPPOSITORY: 650MG 650 MG PRN Q8H DC 06/04/2022 04:16 LevETIRAcetam IVPB PREMIX: 1500MG/100ML 1500 MG Q12H IVPB 06/05/2022 03:0 3 VALPROATE SOD INJ SDV: 500MG/5ML 1000 MG BID IVPB 06/01/2022 20:35 PANTOPRAZOLE INJ SDV: 40MG 40 MG DAILY IVP 06/04/2022 12:32 CefTRIAXone IVPB: 1GM/50ML 1 GM Q24H IVP B 06/02/2022 13:52 VALPROATE SOD INJ SDV: 500MG/5ML 500 MG BID IVPB 06/02/2022 20:44 carBAMazepine XR TABLET: 100MG 200 MG BID PO 06/05/2022 10:57 DEXTROSE 5% AND NACL 0.9% 1000ML 75 ML CONT IV 06/03/2022 10:57 VALPROATE SOD INJ SDV: 500MG/5ML 1000 MG BID IVPB 06/03/2022 20:02 POTASSIUM CHL IN D5%-1/2NS: 20mEq/1000ML 1000 ML CONT IV 06/05/2022 06:2 0 LevETIRAcetam TABLET: 250MG 750 MG BID PO 06/05/2022 10:58 VALPROATE SOD INJ SDV: 500MG/5ML 500 MG Q12H IVPB 06/05/2022 01:07 POTASSIUM CHL IN WATER RIDER:10mEq/100ML 10 MEQ X1 IVPB 06/04/2022 14:57 POTASSIUM CHL IN WATER RIDER:10mEq/100ML 10 MEQ X1 IVPB 06/04/2022 16:58 Encounters Encounter Diagnosis Diagnosis Code Start Date Epilepsy, unspecified, not i ntractable, without status epilepticus [id number] 06/02/2022 Social History Unknown or Not Available. Patient Decision Aids Unknown or Not Available. Discharge Instructions You were admitted to [facility] on 06/02/2022 14:42 with a principal diagnosis of Seizure Disorders and Convulsions You had the following tests done:BASIC METABOLIC PANEL (BMP)CBC W/ DIFFERENTIAL*BASIC METABOLIC PANEL (BMP)BASIC METABOLIC PANEL (BMP)BASIC METABOLIC PANEL (BMP)CBC W/ DIFFERENTIAL*LACTIC ACIDMAGNESIUM SERUM*CULT URINE CULTURE*URINALYSIS WITH REFLEX CULT IF POSITIVE*[facility] COVID FLU RSV GENEXPERTBASIC METABOLIC PANEL (BMP)CBC W/ DIFFERENTIAL*LACTIC ACIDMAGNESIUM SERUM*TEGRETOL (CARBAMAZEPINE) You were discharged from [facility] on 06/05/2022 13:40 Should you have any questions prior to discharge, please contact a member of your healthcare team. If you have left the hospital and have any questions, please contact your primary care physician. Chief Complaint and Reason For Visit Chief Complaint Date of Onset SEIZURE Function Status Unknown or Not Available. Plan of Care Unknown or Not Available. Referral/Transition of Care Unknown or Not Available.
[2022-07-24 21:35] VITALS: TEMP 38.6
[2022-07-24 21:35] LABS: Lactate 1.7 mmol/L (0.6-1.4)
[2022-07-24] MEDS: Ketorolac 15 MG/ML VIAL IVP (21:35)
[2022-07-24] MEDS: Normal Saline 1,000 ML 1000 ML IV (21:42)
[2022-07-24 21:55] LABS: Abs Immature Grans 0.03 10^3/uL (0.0-0.06); Absolute Basophil Count 0.03 10^3/uL (0.0-0.2); Absolute Eosinophil Count 0.04 10^3/uL (0.0-0.7); Absolute Monocyte Count 0.78 10^3/uL (0.1-0.8); Absolute Neutrophil Count 11.64 10^3/uL (1.2-6.7); Basophils % 0.2; Eosinophils % 0.3; HGB 12.3 g/dL (13.5-17.5); Immature Grans % 0.2; Lymphocytes % 8.1; MCHC 30.8 % (32.0-36.0); MCV 78 fL (80-95); MPV 9.8 fL (8.0-11.0); Monocytes % 5.7; Neutrophils % 85.5; Platelet Count 253 10^3/uL (130-400); RBC 5.12 10^6/uL (4.36-5.78); RDW 17.9 % (11.8-14.1); RDW-SD 49.8 fL; WBC 13.61 10^3/uL (4.4-10.8)
--- NOTE | 2022-07-24 21:55 | W.ED.GENAD ---
Discharge Plan Disposition Patient Disposition: Admit to [facility] Condition: Fair Discharge Details Clinical Impression: Acute UTI, Sepsis Admit Date/Time: 07/24/22 23:46 Admit Provider: Eran Diego Attending Provider: Eran Diego Primary Care Provider: Pascual Johnson ED Provider: Faye Portillo Discharge Data Discharge Date/Time-TO BE ENTERED AT DEPARTURE: 07/25/22 00:58 Medical Decision Making <Faye Portillo NP - Last Filed: 07/25/22 17:21> sepsis work up initiated. given 1 liter of NS. viral panel negative. will start ceftriaxone 2 gm IVPB. after review of lab and imaging, likely source UTI. will add abdominal imaging in setting of previous renal stones and extensive renal stone history. report and care of patient to Dr Zavaleta for admission to med/surg. Medical Records Medical records reviewed: Yes I reviewed the patient's medical records. Lab Data Lab results reviewed: Yes I reviewed the patient's lab results. Lab results narrative: lab 07/24/22 22:15 Urine - Reflex from Ua Urine Culture - Pending 07/24/22 21:30 Blood Blood Culture - Pending 07/24/22 21:50 Blood Blood Culture - Pending Laboratory Tests Range/Units 07/24/22 07/24/22 07/24/22 20:52 21:30 21:30 WBC (4.4-10.8) 10^3/uL RBC (4.36-5.78) 10^6/uL Hgb (13.5-17.5) g/dL Hct (40.0-50.0) % MCV (80-95) fL MCH (27.0-33.0) pg MCHC (32.0-36.0) % RDW (11.8-14.1) % Plt Count (130-400) 10^3/uL MPV (8.0-11.0) fL Immature Gran % Neutrophils % Lymphocytes % Monocytes % Eosinophils % Basophils % Nucleated RBC % (0.0-0.3) % Absolute Neutrophils (1.2-6.7) 10^3/uL Absolute Lymphocytes (1.2-3.4) 10^3/uL Absolute Monocytes (0.1-0.8) 10^3/uL Absolute Eosinophils (0.0-0.7) 10^3/uL Absolute Basophils (0.0-0.2) 10^3/uL VBG Lactate (0.6-1.4) mmol/L 1.7 H Sodium (136-145) mmol/L 138 Potassium (3.5-5.1) mmol/L 3.2 L Chloride (98-107) mmol/L 102 Carbon Dioxide (21.0-32.0) mmol/L 27.2 Anion Gap (3-11) mmol/L 8.8 BUN (7-18) mg/dL 10 Creatinine (0.70-1.30) mg/dL 0.9 Est GFR (CKD-EPI 2020) (mL/min/1.73m2) 111.42 Glucose (74-106) mg/dL 131 H Calcium (8.5-10.1) mg/dL 9.0 Magnesium (1.8-2.4) mg/dL 1.9 Total Bilirubin (0.2-1.0) mg/dL 0.4 AST (15-37) U/L 18 ALT (16-63) U/L 32 Alkaline Phosphatase (46-116) U/L 87 Total Protein (6.4-8.2) g/dL 7.8 Albumin (3.4-5.0) g/dL 3.4 Procalcitonin ng/mL TSH (0.36-3.74) uIU/mL Urine Color (Yellow) Urine Clarity (Clear) Urine pH (5-8) Ur Specific [place] (1.005-1.025) Urine Protein (Negative) mg/dL Urine Ketones (Negative) mg/dL Urine Blood (Negative) Urine Nitrite (Negative) Urine Bilirubin (Negative) Urine Urobilinogen (Up to 0.2) mg/dL Ur Leukocyte Esterase (Negative) Urine RBC (0-2) HPF Urine WBC (0-5) HPF Ur Epithelial Cells (Negative) HPF Urine Crystals (Negative) HPF Urine Bacteria (Negative) HPF Urine Mucus (Negative) Ur Culture Indicated? Urine Glucose (Negative) mg/dL COVID-19 Source Nasopharynx SARS-CoV-2 (PCR) (Negative) Negative Influenza Type A (PCR) (Negative) Negative Influenza Type B (PCR) (Negative) Negative RSV (PCR) (Negative) Negative Range/Units 07/24/22 07/24/22 07/24/22 21:30 21:35 21:50 WBC (4.4-10.8) 10^3/uL 13.61 H RBC (4.36-5.78) 10^6/uL 5.12 Hgb (13.5-17.5) g/dL 12.3 L Hct (40.0-50.0) % 40.0 MCV (80-95) fL 78 L MCH (27.0-33.0) pg 24.0 L MCHC (32.0-36.0) % 30.8 L RDW (11.8-14.1) % 17.9 H Plt Count (130-400) 10^3/uL 253 MPV (8.0-11.0) fL 9.8 Immature Gran % 0.2 Neutrophils % 85.5 Lymphocytes % 8.1 Monocytes % 5.7 Eosinophils % 0.3 Basophils % 0.2 Nucleated RBC % (0.0-0.3) % 0.0 Absolute Neutrophils (1.2-6.7) 10^3/uL 11.64 H Absolute Lymphocytes (1.2-3.4) 10^3/uL 1.10 L Absolute Monocytes (0.1-0.8) 10^3/uL 0.78 Absolute Eosinophils (0.0-0.7) 10^3/uL 0.04 Absolute Basophils (0.0-0.2) 10^3/uL 0.03 VBG Lactate (0.6-1.4) mmol/L Sodium (136-145) mmol/L Potassium (3.5-5.1) mmol/L Chloride (98-107) mmol/L Carbon Dioxide (21.0-32.0) mmol/L Anion Gap (3-11) mmol/L BUN (7-18) mg/dL Creatinine (0.70-1.30) mg/dL Est GFR (CKD-EPI 2020) (mL/min/1.73m2) Glucose (74-106) mg/dL Calcium (8.5-10.1) mg/dL Magnesium (1.8-2.4) mg/dL Total Bilirubin (0.2-1.0) mg/dL AST (15-37) U/L ALT (16-63) U/L Alkaline Phosphatase (46-116) U/L Total Protein (6.4-8.2) g/dL Albumin (3.4-5.0) g/dL Procalcitonin ng/mL 0.2 TSH (0.36-3.74) uIU/mL 0.63 Urine Color (Yellow) Urine Clarity (Clear) Urine pH (5-8) Ur Specific [place] (1.005-1.025) Urine Protein (Negative) mg/dL Urine Ketones (Negative) mg/dL Urine Blood (Negative) Urine Nitrite (Negative) Urine Bilirubin (Negative) Urine Urobilinogen (Up to 0.2) mg/dL Ur Leukocyte Esterase (Negative) Urine RBC (0-2) HPF Urine WBC (0-5) HPF Ur Epithelial Cells (Negative) HPF Urine Crystals (Negative) HPF Urine Bacteria (Negative) HPF Urine Mucus (Negative) Ur Culture Indicated? Urine Glucose (Negative) mg/dL COVID-19 Source SARS-CoV-2 (PCR) (Negative) Influenza Type A (PCR) (Negative) Influenza Type B (PCR) (Negative) RSV (PCR) (Negative) Range/Units 07/24/22 22:15 WBC (4.4-10.8) 10^3/uL RBC (4.36-5.78) 10^6/uL Hgb (13.5-17.5) g/dL Hct (40.0-50.0) % MCV (80-95) fL MCH (27.0-33.0) pg MCHC (32.0-36.0) % RDW (11.8-14.1) % Plt Count (130-400) 10^3/uL MPV (8.0-11.0) fL Immature Gran % Neutrophils % Lymphocytes % Monocytes % Eosinophils % Basophils % Nucleated RBC % (0.0-0.3) % Absolute Neutrophils (1.2-6.7) 10^3/uL Absolute Lymphocytes (1.2-3.4) 10^3/uL Absolute Monocytes (0.1-0.8) 10^3/uL Absolute Eosinophils (0.0-0.7) 10^3/uL Absolute Basophils (0.0-0.2) 10^3/uL VBG Lactate (0.6-1.4) mmol/L Sodium (136-145) mmol/L Potassium (3.5-5.1) mmol/L Chloride (98-107) mmol/L Carbon Dioxide (21.0-32.0) mmol/L Anion Gap (3-11) mmol/L BUN (7-18) mg/dL Creatinine (0.70-1.30) mg/dL Est GFR (CKD-EPI 2020) (mL/min/1.73m2) Glucose (74-106) mg/dL Calcium (8.5-10.1) mg/dL Magnesium (1.8-2.4) mg/dL Total Bilirubin (0.2-1.0) mg/dL AST (15-37) U/L ALT (16-63) U/L Alkaline Phosphatase (46-116) U/L Total Protein (6.4-8.2) g/dL Albumin (3.4-5.0) g/dL Procalcitonin ng/mL TSH (0.36-3.74) uIU/mL Urine Color (Yellow) Yellow Urine Clarity (Clear) Sl Cloudy Urine pH (5-8) 5.5 Ur Specific [place] (1.005-1.025) 1.010 Urine Protein (Negative) mg/dL 30 H Urine Ketones (Negative) mg/dL Negative Urine Blood (Negative) Small H Urine Nitrite (Negative) Negative Urine Bilirubin (Negative) Negative Urine Urobilinogen (Up to 0.2) mg/dL 0.2 Ur Leukocyte Esterase (Negative) Small H Urine RBC (0-2) HPF 3-5 H Urine WBC (0-5) HPF 10-20 H Ur Epithelial Cells (Negative) HPF Few Urine Crystals (Negative) HPF Negative Urine Bacteria (Negative) HPF Few Urine Mucus (Negative) Negative Ur Culture Indicated? Yes Urine Glucose (Negative) mg/dL Negative COVID-19 Source SARS-CoV-2 (PCR) (Negative) Influenza Type A (PCR) (Negative) Influenza Type B (PCR) (Negative) RSV (PCR) (Negative) <Bradley Luther MD - Last Filed: 07/29/22 14:18> Note: I was not involved in the care of this patient. I was not consulted. My involvement was not requested. The patient was evaluated independently by KASEY Portillo. Diagnostic workup and treatment plan, including disposition determination, was performed by KASEY Portillo. HPI <Faye Portillo NP - Last Filed: 07/25/22 17:21> General Date/Time Provider Initiated Documentation: 07/24/22 20:42. Limitations to Documentation: other (Cerebral palsy, Severe mental retardation). Information obtained by: family (Caregiver). HPI Narrative: Is a 37-year-old male totally dependent on care history of cerebral palsy mental retardation [employer] shunt seizure disorder who presents for a several day history of change in behavior. Today noted to be running a temperature who reported at 101. He was given Tylenol suppository. Has noted to have vomited once yesterday today noted increased phlegm. He has a history of dysphagia is on a pur?ed diet but does have swallowing difficulties Related Data Home Medications Medication Instructions Recorded Confirmed dimethicone-zinc oxide topical 1 gm PRN PRN 05/31/17 07/24/22 cream (Perla Protect (dimethicone-zinc oxide) topical cream) bisacodyl 10 mg rectal suppository 10 mg OR DAILY PRN constipation 11/24/18 07/24/22 #12 ea nystatin 100,000 unit/gram topical 1 applic topical BID PRN 06/04/19 07/24/22 cream intertrigo #30 grams simethicone 125 mg capsule (Gas-X 125 mg PO AC gas 11/01/20 07/24/22 Extra Strength) epinephrine 0.3 mg/0.3 mL 0.3 mg (0.3 mL) IM ONCE #2 pens 06/27/21 07/24/22 injection, auto-injector pedi nutrition,iron,lact-free 0.03 237 ml PO BID PRN underweight 06/27/21 07/24/22 gram-1 kcal/mL oral liquid #7,110 mL (Pediatric Balanced Nutrition) acetaminophen 650 mg rectal See Rx Instructions .Route 07/09/21 07/24/22 suppository .COMPLEX #100 ea diazepam 5 mg-7.5 mg-10 mg rectal 5 mg OR Q12H PRN seizure activity 02/27/22 07/24/22 kit #3 ea gabapentin 800 mg tablet 800 mg PO TID #270 tabs 02/27/22 07/24/22 levetiracetam 750 mg tablet 750 mg PO BID #180 tabs 02/27/22 07/24/22 pyridoxine (vitamin B6) 50 mg 50 mg PO DAILY #90 caps 04/10/22 07/24/22 capsule (Vitamin B-6) sennosides 8.6 mg tablet (Senna 8.6 mg PO BID #180 tabs 04/10/22 07/24/22 Laxative) Lactobacillus acidophilus 100 100 mmu cells PO BID diarrhea #180 05/13/22 07/24/22 million cell capsule caps folic acid 1 mg tablet 1 mg PO DAILY #90 tabs 05/13/22 07/24/22 melatonin 5 mg capsule 5 mg PO HS #90 caps 05/13/22 07/24/22 polyethylene glycol 3350 17 gram 17 g PO DAILY constipation #100 ea 05/13/22 07/24/22 oral powder packet docusate sodium 100 mg capsule 200 mg PO TID constipation #540 06/05/22 07/24/22 caps carbamazepine 100 mg chewable 200 mg PO TID #540 tabs 06/12/22 07/24/22 tablet sucralfate 1 gram tablet 1 g PO AC #90 tabs 06/13/22 07/24/22 famotidine 20 mg tablet 20 mg PO BID #180 tabs 07/03/22 07/24/22 pantoprazole 40 mg tablet,delayed 40 mg PO BID #180 tab-caps 07/03/22 07/24/22 release amoxicillin 500 mg-potassium 1 tab PO BID #14 tabs 07/28/22 clavulanate 125 mg tablet (Augmentin) amoxicillin 600 mg-potassium 5 ml PO BID #0 mL 07/28/22 clavulanate 42.9 mg/5 mL oral suspension potassium chloride 20 mEq oral 20 meq PO BID #30 ea 07/28/22 packet Previous Rx's Medication Instructions Recorded bisacodyl 10 mg rectal suppository 10 mg OR DAILY PRN constipation 11/24/18 #12 ea nystatin 100,000 unit/gram topical 1 applic topical BID PRN 06/04/19 cream intertrigo #30 grams epinephrine 0.3 mg/0.3 mL 0.3 mg (0.3 mL) IM ONCE #2 pens 06/27/21 injection, auto-injector pedi nutrition,iron,lact-free 0.03 237 ml PO BID PRN underweight 06/27/21 gram-1 kcal/mL oral liquid #7,110 mL (Pediatric Balanced Nutrition) acetaminophen 650 mg rectal See Rx Instructions .Route 07/09/21 suppository .COMPLEX #100 ea diazepam 5 mg-7.5 mg-10 mg rectal 5 mg OR Q12H PRN seizure activity 02/27/22 kit #3 ea gabapentin 800 mg tablet 800 mg PO TID #270 tabs 02/27/22 levetiracetam 750 mg tablet 750 mg PO BID #180 tabs 02/27/22 pyridoxine (vitamin B6) 50 mg 50 mg PO DAILY #90 caps 04/10/22 capsule (Vitamin B-6) sennosides 8.6 mg tablet (Senna 8.6 mg PO BID #180 tabs 04/10/22 Laxative) Lactobacillus acidophilus 100 100 mmu cells PO BID diarrhea #180 05/13/22 million cell capsule caps folic acid 1 mg tablet 1 mg PO DAILY #90 tabs 05/13/22 melatonin 5 mg capsule 5 mg PO HS #90 caps 05/13/22 polyethylene glycol 3350 17 gram 17 g PO DAILY constipation #100 ea 05/13/22 oral powder packet docusate sodium 100 mg capsule 200 mg PO TID constipation #540 06/05/22 caps carbamazepine 100 mg chewable 200 mg PO TID #540 tabs 06/12/22 tablet sucralfate 1 gram tablet 1 g PO AC #90 tabs 06/13/22 famotidine 20 mg tablet 20 mg PO BID #180 tabs 07/03/22 pantoprazole 40 mg tablet,delayed 40 mg PO BID #180 tab-caps 07/03/22 release amoxicillin 500 mg-potassium 1 tab PO BID #14 tabs 07/28/22 clavulanate 125 mg tablet (Augmentin) amoxicillin 600 mg-potassium 5 ml PO BID #0 mL 07/28/22 clavulanate 42.9 mg/5 mL oral suspension potassium chloride 20 mEq oral 20 meq PO BID #30 ea 07/28/22 packet Allergies Allergy/AdvReac Type Severity Reaction Status Date / Time latex Allergy Severe ANAPHYLAXIS Verified 07/24/22 20:53 venom-honey bee Allergy Unknown Verified 07/24/22 20:53 adhesive tape AdvReac Severe irritation, Verified 07/24/22 20:53 rash heparin AdvReac Severe GI BLEED Verified 07/24/22 20:53 NSAIDS (Non-Steroidal AdvReac Intermediate GI BLEED Verified 07/24/22 20:53 Anti-Inflamma ferrous sulfate AdvReac Verified 07/24/22 20:53 General Stated Complaint: Fever JUANJO: 3 Review of Systems <Faye Portillo NP - Last Filed: 07/25/22 17:21> All systems reviewed & are unremarkable except as noted in HPI and below (Obtained from caregiver) PFSH <Faye Portillo NP - Last Filed: 07/25/22 17:21> All Active Problems (Updated 07/29/22 @ 00:07 by CECILIA CONTI) Acute UTI (Acute) Sepsis (Acute) Aspiration pneumonia (Acute) Sepsis syndrome (Acute) Breakthrough seizure (Acute) With prolonged Postictal state, resolved. [facility] 06/02/22 Hypokalemia (Acute) [facility] 06/01/22. Acute hypernatremia (Acute) [facility] 06/02/22 Gallbladder sludge (Acute) Goals of care, counseling/discussion (Acute) Palliative care patient (Acute) POLST (Physician Orders for Life-Sustaining Treatment) (Acute) DNI (do not intubate) (Acute) DNR (do not resuscitate) (Acute) Weight loss (Acute) Anxiety in acute stress reaction (Acute) Dental caries extending into dentin (Acute) Anemia (Chronic) Right nephrolithiasis (Chronic) Seizure (Acute) Status post ventriculoperitoneal shunt (Chronic) GERD (gastroesophageal reflux disease) (Chronic) Vitamin D deficiency (Chronic) Focal epilepsy with impairment of consciousness, intractable (Chronic) Mental retardation (Chronic) non verbal incontinent bladder and bowel Idiopathic scoliosis (Chronic) Hydrocephalus (Chronic 04/30/14) 2014 [employer] shunt malfunction and new shunt inserted at [facility] [place] Apr 2014 Cerebral palsy (Chronic) Severe; 23.5 weeks GA; Spastic quadraplegia non verbal Bowel and bladder incontinence (Chronic 01/28/14) 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 femoral resections H/O nephrostomy History of lung surgery unknown; large scar on chest History of surgical procedure S/P ureteral stent placement (~06/28/18) 06/28/18 [facility] [place]; LEFT-kb SHUNT [employer] SHUNT; revision in 2015 Status post laser lithotripsy of ureteral calculus Family History Mother , AGE 40 Cancer Father No problems noted. Sister Cancer Maternal Grandfather , AGE 73 Cancer Maternal Grandmother , AGE 77 Cancer Brother , MVA AGE 10 No problems noted. Social History Smoking/Tobacco Use Status: Never Smoking risk assessment performed?: Yes Alcohol Intake: never Drug use: Never Substance use type: does not use Caregiver/Support person: Yes Household members: caregiver Housing: house Number of Children: 0 Pets and animals: Yes Pets and animals: dog(s) Sexually active: No What is your relationship status?: never How often do you talk on the phone with friends or family?: never How often do you get together with friends or relatives?: decline to answer How often do you attend orthodox or oriental orthodox services?: decline to answer Do you belong to any clubs or organized social groups?: decline to answer Panel score (0-1 are the most socially isolated patients): 0 What type of physical activity do you participate in: other Details: bouncing Duration: < 15 minutes/day Latonya/Temple: None Special latonya needs: No Seatbelt use: always Drive intox or ride w/intox paratransit driver: No Do you feel safe at home: Yes Do you feel safe in your relationship?: Yes Exam <Faye Portillo NP - Last Filed: 07/25/22 17:21> Const General: comfortable and frail appearing Nutritional Appearance: cachectic and underweight HENMT Head: normal to inspection and atraumatic Neck Neck: normal visual inspection Resp Effort & Inspection: normal respiratory effort, no cough, no respiratory distress and not tachypneic Cardio Rate: regular rate Rhythm: regular rhythm GI Inspection: normal to inspection and scaphoid Palpation: soft, no guarding and nontender Neuro Speech: speech abnormal Extrem General: other (chronic contractures, spastic quadriplegia) Course <Faye Portillo NP - Last Filed: 07/25/22 17:21> Vital Signs Vital signs: Vital Signs Temperature 36.7 C 07/24/22 20:47 Pulse 108 H 07/24/22 20:47 Respiratory Rate 22 07/24/22 20:47 Blood Pressure 97/58 L 07/24/22 20:47 Pulse Oximetry 93 07/24/22 20:47 Temperature 38.6 C H 07/24/22 21:35 Temperature Source Temporal Artery Scan 07/24/22 20:47 Pulse 108 H 07/24/22 20:47 Respiratory Rate 22 07/24/22 20:47 Respiratory Effort Normal, Non-Labored 07/24/22 21:50 Blood Pressure 97/58 L 07/24/22 20:47 Blood Pressure Position Sitting 07/24/22 20:47 Pulse Oximetry 93 07/24/22 20:47 Oxygen Delivery Method Room Air 07/24/22 20:47 Oxygen Flow Rate 0 07/24/22 20:47 Lab/Test Results Lab/Test Results: 07/24/22 21:50 Blood Blood Culture - Pending 07/24/22 20:58 Blood Blood Culture - Pending Laboratory Tests Range/Units 07/24/22 21:30 VBG Lactate (0.6-1.4) mmol/L 1.7 H
[2022-07-24 21:56] LABS: ALT 32 U/L (16-63); AST 18 U/L (15-37); Albumin 3.4 g/dL (3.4-5.0); Alkaline Phosphatase 87 U/L (46-116); Anion Gap 8.8 mmol/L (3-11); BUN 10 mg/dL (7-18); Bilirubin, Total 0.4 mg/dL (0.2-1.0); CO2 27.2 mmol/L (21.0-32.0); CREATININE 0.9 mg/dL (0.70-1.30); Chloride 102 mmol/L (98-107); Estimated GFR 111.42 (mL/min/1.73m2); Glucose 131 mg/dL (74-106); Magnesium 1.9 mg/dL (1.8-2.4); Potassium 3.2 mmol/L (3.5-5.1); Sodium 138 mmol/L (136-145); Total Protein 7.8 g/dL (6.4-8.2)
[2022-07-24 22:03] LABS: COVID-19 PCR Negative (Negative); Influenza A PCR Negative (Negative); Influenza B PCR Negative (Negative); RSV PCR Negative (Negative)
[2022-07-24 22:06] LABS: Source Nasopharynx
--- NOTE | 2022-07-24 22:10 | DI.VRAD_ITS ---
PROCEDURE INFORMATION: Exam: XR Chest Exam date and time: 07/24/2022 9:56 PM Age: 37 years old Clinical indication: Cough and fever TECHNIQUE: Imaging protocol: Radiologic exam of the chest. Views: 1 view. COMPARISON: CR XR SHUNT SERIES 07/04/2021 7:43 PM FINDINGS: Limited due to rotation Shunt tubing overlying the right chest with the tip of the catheter in the right upper quadrant Lungs: No consolidation. Pleural spaces: No pleural effusion. No pneumothorax. Heart/Mediastinum: No cardiomegaly. Bones/joints: Unremarkable. IMPRESSION: No acute findings. Dictated and Authenticated by: Eduin Cooper MD. Ordering:KEVIN Mckinney MD
[2022-07-24 22:13] LABS: Procalcitonin 0.2 ng/mL
[2022-07-24 22:21] LABS: Bilirubin Negative (Negative); Blood Small (Negative); Clarity Sl Cloudy (Clear); Glucose Negative (Negative); Ketones Negative (Negative); Leukocyte Esterase Small (Negative); Nitrite Negative (Negative); Urobilinogen 0.2 mg/dL (Up to 0.2); pH 5.5 (5-8)
--- NOTE | 2022-07-24 22:30 | DI.CT_ITS ---
Exam(s) CT ABDOMEN PELVIS WO EXAM: CT ABDOMEN PELVIS WO CLINICAL HISTORY: uti, history of renal stones. TECHNIQUE: Imaging Protocol: Axial computed tomography images with coronal and sagittal reformatted images were created and reviewed CONTRAST MATERIAL: Intravenous: none Oral: None COMPARISON: CT CT ABDOMEN PELVIS W from 07/04/2021 FINDINGS: VISUALIZED LUNG BASES: There is significant infiltrate in both lung bases, specifically in both lower lobes as well as inferior lingular segment of left lung. No pleural effusions. These infiltrates w ere not evident prior scan 07/05/2019.. ABDOMEN: Prominent chronic scoliosis again noted. There is no ascites. There are 2 ventriculoperitoneal shunts right of center. One terminates in the right upper quadrant gaby hepatis region. The other terminates left of center. No abnormal collec tions around these catheters. LIVER: There are no obvious focal hepatic lesions evident of this noninfused study. GALLBLADDER/BILIARY: No obvious gallbladder pathology. CBD is not dilated. PANCREAS: No evidence of pancreatic mass nor dilatation of the pancreatic duct. SPLEEN: Spleen is not enlarged. No obvious intrasplenic lesions. ADRENALS: There are no significant adrenal masses. KIDNEYS:There are multiple calculi in both kidneys. The largest measures 8 millimeters. There are n o obvious calculi in the ureters nor within the urinary bladder. No obvious renal masses nor cysts.. ABDOMINAL AORTA: Abdominal aorta is not enlarged. LYMPH NODES: There is no retroperitoneal nor paraaortic adenopathy. ABDOMINAL WALL: No evidence of significant anterior abdominal wall nor inguinal hernia. GI: There is abundant fecal material throughout the colon. Probable constipation. No evidence of sm all-bowel obstruction. No free air. No abscess. PELVIS: LYMPH NODES: There is no intrapelvic nor inguinal adenopathy. GI: No evidence of appendicitis.No evidence of sigmoid diverticulitis. URINARY BLADDER: No calculi nor obvious masses evident REPRODUCTIVE: Unremarkable OSSEOUS: Chronic scoliosis and hip deformities. No acute fractures evident. No evidence of osteomye litis. Other: Lower most image on this study reveals some subcutaneous edema over the lower left buttock. R ecommend checking for developing decubitus ulcer. IMPRESSION: 1. There is infiltrate in both lung bases, not associated with pleural effusions. There are no infil trates in the lung bases on the prior CT scan of June 2021. 2. Bilateral nephrolithiasis again noted. No obstructing calculi in the ureters and there are no rad iopaque calculi seen in the urinary bladder. 3. Abundant fecal material noted throughout the colon-probable constipation. No evidence of obvious bowel obstruction. No evidence of diverticulitis. Other findings as above. Called by myself to hospitalist (lung infiltrates). RADIATION DOSE DELIVERED: 393.31mGy.cm Total DLP DATA REPOSITORY: All CT scans at this facility are submitted to the National Radiology Data Registry (NRDR) Dose Index Registry (DIR) with the [employer] (ACR). RADIATION OPTIMIZATION: All CT scans at this facility use at least one of these dose optimization te chniques: automated exposure control; mA and/or kV adjustment per patient size (includes targeted exa ms where dose is matched to clinical indication); or iterative reconstruction.
[2022-07-24] MEDS: cefTRIAXone 2 GM/50 ML BAG IVPB (22:32)
[2022-07-24 22:35] LABS: Bacteria Few HPF (Negative); C & S Indicated? Yes; Crystals Negative HPF (Negative); Epithelial Cells Few HPF (Negative); Mucus Negative (Negative)
--- NOTE | 2022-07-24 23:20 | DI.VRAD_ITS ---
PROCEDURE INFORMATION: Exam: CT Abdomen And Pelvis Without Contrast Exam date and time: 07/24/2022 11:01 PM Age: 37 years old Clinical indication: Other: UTI, history of renal stones; Additional info: Best images possible due to PT. Condition TECHNIQUE: Imaging protocol: Computed tomography of the abdomen and pelvis without contrast. COMPARISON: CT ABDOMEN PELVIS W 07/04/2021 11:48 AM FINDINGS: Liver: Normal. No mass. Gallbladder and bile ducts: Normal. No calcified stones. No ductal dilation. Pancreas: Normal. No ductal dilation. Spleen: Normal. No splenomegaly. Adrenal glands: Normal. No mass. Kidneys and ureters: Bilateral nephrolithiasis No hydronephrosis. Stomach and bowel: Large dense stool throughout the colon with mild distension Prominent small bowel loops with air-fluid levels. No sharp transition point Appendix: No evidence of appendicitis. Intraperitoneal space: Ventriculoperitoneal shunt with the tip terminating adjacent to the gaby hepatis No free air. No significant fluid collection. Vasculature: Unremarkable. No abdominal aortic aneurysm. Lymph nodes: Unremarkable. No enlarged lymph nodes. Urinary bladder: Unremarkable as visualized. Reproductive: Unremarkable as visualized. Bones/joints: Severe levoscoliosis of the spine No acute fracture. Soft tissues: Unremarkable. IMPRESSION: Non-specific bowel gas pattern which may represent mild ileus secondary to constipation. Developing partial small bowel obstruction not completely excluded Bilateral nephrolithiasis without hydroureteronephrosis Nonurgent findings as noted Dictated and Authenticated by: Eduin Cooper MD. Ordering:KEVIN Mckinney MD
[2022-07-24 23:21] VITALS: BP 84/54; PULSE 88; RESP 19; O2SAT 95
--- NOTE | 2022-07-24 23:41 | HPE_ITS ---
Date of service: 07/24/22 Time of Service: 23:41 Assessment and Plan Assessment and plan (1) Complicated UTI (urinary tract infection): Start date: 07/24/22 Status: Resolved Assessment and plan: Patient has a history of UTIs and presents with altered neuro status and fever with bilaterally renal lithiasis which complicate his possible UTI. There is no obstruction. There is no need for immediate intervention but urology will be consulted for possible removal of stones if thought to be necessary. Follow-up urine culture and adjust medical therapy accordingly. (2) Sepsis syndrome: Start date: 07/24/22 Status: Acute Assessment and plan: Patient presents with altered mental status and fever with tachycardia and elevated WBC. IV fluid resuscitation along with IV antibiotic for probable source being UTI. Supportive care with patient being a DNR/DNI. (3) Hypokalemia: Start date: 07/24/22 Status: Acute Assessment and plan: Replete with IV fluids as we hydrate. Follow-up labs in morning and adjust as needed. Follow-up magnesium level. (4) Bilateral kidney stones: Status: Chronic Assessment and plan: Consult urology for possible stone removal especially if UTI. (5) Epilepsy: Assessment and plan: Continue outpatient medical therapy as allowed with patient taking orally. Qualifiers: Epilepsy type: partial symptomatic Intractability: intractable Partial seizure type: with simple partial seizures Status epilepticus: without status epilepticus Qualified Code(s): G40.119 - Localization-related (focal) (partial) symptomatic epilepsy and epileptic syndromes with simple partial seizures, intractable, without status epilepticus History of Present Illness History of Present Illness Chief Complaint: Fever with altered mental status from baseline with CP Narrative: This is a 37-year-old male patient who resides at home with caretakers with a history of cerebral palsy with mental retardation and PAROLE AGENT shunt with seizure activity in the past who is very debilitated and usually requires complete support. He had a change in his behavior over the last several days and did have a fever up to 101 prior to presentation to the ED. He was thought to have a UTI does have bilateral renal stones with no obstruction. He was initiated on high-dose Rocephin and will have urology consultation with a history of renal lithiasis in the past. He has had no difficulty breathing or no GI symptoms reported. He appears severely debilitated by his CP with contractions and does not appear to be ambulating alone. He usually does eat fairly well by history. Patient not able to offer any further history. He is a DNR/DNI. Review of Systems Narrative: 13 point review of systems otherwise unrevealing or stable. [facility] All Active Problems (Updated 07/25/22 @ 06:51 by Eran Diego) Sepsis syndrome (Acute) Breakthrough seizure (Acute) With prolonged Postictal state, resolved. [facility] 06/02/22 Hypokalemia (Acute) [facility] 06/01/22. Acute hypernatremia (Acute) [facility] 06/02/22 Gallbladder sludge (Acute) Goals of care, counseling/discussion (Acute) Palliative care patient (Acute) POLST (Physician Orders for Life-Sustaining Treatment) (Acute) DNI (do not intubate) (Acute) DNR (do not resuscitate) (Acute) Weight loss (Acute) Bilateral kidney stones (Chronic) Anxiety in acute stress reaction (Acute) Dental caries extending into dentin (Acute) Anemia (Chronic) Right nephrolithiasis (Chronic) Seizure (Acute) Status post ventriculoperitoneal shunt (Chronic) GERD (gastroesophageal reflux disease) (Chronic) Vitamin D deficiency (Chronic) Focal epilepsy with impairment of consciousness, intractable (Chronic) Mental retardation (Chronic) non verbal incontinent bladder and bowel Idiopathic scoliosis (Chronic) Hydrocephalus (Chronic 04/30/14) 2014 PAROLE AGENT shunt malfunction and new shunt inserted at [facility] [place] Apr 2014 Cerebral palsy (Chronic) Severe; 23.5 weeks GA; Spastic quadraplegia non verbal Bowel and bladder incontinence (Chronic 01/28/14) 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 femoral resections H/O nephrostomy History of lung surgery unknown; large scar on chest History of surgical procedure S/P ureteral stent placement (~06/28/18) 06/28/18 [facility] [place]; LEFT-kb SHUNT PAROLE AGENT SHUNT; revision in 2015 Status post laser lithotripsy of ureteral calculus Family History Mother , AGE 40 Cancer Father No problems noted. Sister Cancer Maternal Grandfather , AGE 73 Cancer Maternal Grandmother , AGE 77 Cancer Brother , MVA AGE 10 No problems noted. Social History Smoking/Tobacco Use Status: Never Smoking risk assessment performed?: Yes Alcohol Intake: never Drug use: Never Substance use type: does not use Caregiver/Support person: Yes Household members: caregiver Housing: house Number of Children: 0 Pets and animals: Yes Pets and animals: dog(s) Sexually active: No What is your relationship status?: never How often do you talk on the phone with friends or family?: never How often do you get together with friends or relatives?: decline to answer How often do you attend sikh or hinduism services?: decline to answer Do you belong to any clubs or organized social groups?: decline to answer Panel score (0-1 are the most socially isolated patients): 0 What type of physical activity do you participate in: other Details: bouncing Duration: < 15 minutes/day Latonya/Presybeterian: None Special latonya needs: No Seatbelt use: always Drive intox or ride w/intox lease purchase driver: No Do you feel safe at home: Yes Do you feel safe in your relationship?: Yes Meds Allergies and Home Medications Allergies Allergy/AdvReac Type Severity Reaction Status Date / Time latex Allergy Severe ANAPHYLAXIS Verified 07/24/22 20:53 venom-honey bee Allergy Unknown Verified 07/24/22 20:53 adhesive tape AdvReac Severe irritation, Verified 07/24/22 20:53 rash heparin AdvReac Severe GI BLEED Verified 07/24/22 20:53 NSAIDS (Non-Steroidal AdvReac Intermediate GI BLEED Verified 07/24/22 20:53 Anti-Inflamma ferrous sulfate AdvReac Verified 07/24/22 20:53 Home Medications Medication Instructions Recorded Confirmed Type dimethicone-zinc oxide topical 1 gm PRN PRN 05/31/17 07/24/22 History cream (Perla Protect (dimethicone-zinc oxide) topical cream) bisacodyl 10 mg rectal suppository 10 mg MS DAILY PRN constipation 11/24/18 07/24/22 Rx #12 ea nystatin 100,000 unit/gram topical 1 applic topical BID PRN 06/04/19 07/24/22 Rx cream intertrigo #30 grams simethicone 125 mg capsule (Gas-X 125 mg PO AC gas 11/01/20 07/24/22 History Extra Strength) epinephrine 0.3 mg/0.3 mL 0.3 mg (0.3 mL) IM ONCE #2 pens 06/27/21 07/24/22 Rx injection, auto-injector pedi nutrition,iron,lact-free 0.03 237 ml PO BID PRN underweight 06/27/21 07/24/22 Rx gram-1 kcal/mL oral liquid #7,110 mL (Pediatric Balanced Nutrition) acetaminophen 650 mg rectal See Rx Instructions .Route 07/09/21 07/24/22 Rx suppository .COMPLEX #100 ea diazepam 5 mg-7.5 mg-10 mg rectal 5 mg MS Q12H PRN seizure activity 02/27/22 07/24/22 Rx kit #3 ea gabapentin 800 mg tablet 800 mg PO TID #270 tabs 02/27/22 07/24/22 Rx levetiracetam 750 mg tablet 750 mg PO BID #180 tabs 02/27/22 07/24/22 Rx pyridoxine (vitamin B6) 50 mg 50 mg PO DAILY #90 caps 04/10/22 07/24/22 Rx capsule (Vitamin B-6) sennosides 8.6 mg tablet (Senna 8.6 mg PO BID #180 tabs 04/10/22 07/24/22 Rx Laxative) Lactobacillus acidophilus 100 100 mmu cells PO BID diarrhea #180 05/13/22 07/24/22 Rx million cell capsule caps folic acid 1 mg tablet 1 mg PO DAILY #90 tabs 05/13/22 07/24/22 Rx melatonin 5 mg capsule 5 mg PO HS #90 caps 05/13/22 07/24/22 Rx polyethylene glycol 3350 17 gram 17 g PO DAILY constipation #100 ea 05/13/22 07/24/22 Rx oral powder packet docusate sodium 100 mg capsule 200 mg PO TID constipation #540 06/05/22 07/24/22 Rx caps carbamazepine 100 mg chewable 200 mg PO TID #540 tabs 06/12/22 07/24/22 Rx tablet sucralfate 1 gram tablet 1 g PO AC #90 tabs 06/13/22 07/24/22 Rx famotidine 20 mg tablet 20 mg PO BID #180 tabs 07/03/22 07/24/22 Rx pantoprazole 40 mg tablet,delayed 40 mg PO BID #180 tab-caps 07/03/22 07/24/22 Rx release Exam Narrative Exam Narrative: General: Patient appears older than stated age, very thin lying in bed in the position with contractures of lower extremities especially over ankles and feet with knees bent and legs folded over each other as well as upper extremities with contractures. He is lying on his right side. He is not communicative and eyes are shut. He does respond to tactile stimulation. Not oriented to person, place or time. HEENT: Normocephalic, eyes with that shot and patient not opening purposely. Oropharynx with dry mucosa. Patient is also clamping down the mouth not allowing exam. Neck: Supple without JVD. Back: Kyphotic without CVA tenderness. Lungs: Fair aeration clear to auscultation with patient having minimal inspiratory effort or cooperation during exam. Heart: Regular rate and rhythm with no murmurs gallops appreciated. Abdomen: Scaphoid contour, soft and nontender to palpation with no palpable hepatosplenomegaly. Well-healed scar with previous PEG tube placement in the mid upper abdomen. Genitalia/rectal: Exam deferred. Extremities: Muscle wasting diffusely with contracted joints and deformed ankles and feet, no pitting edema, clubbing or cyanosis. Skin: Normal color, warm and dry. Neuro: Crohn nerves II through XII not testable with patient not cooperating, motor appears to show movement of extremities though little mobility without apparent unilateral dysfunction. No tremor noted. Psych: Patient is withdrawn not communicating with testing not possible. At baseline supposedly he is more communicative. Results Imaging Imaging Studies: Exam: XR Chest Exam date and time: 07/24/2022 9:56 PM Age: 37 years old Clinical indication: Cough and fever TECHNIQUE: Imaging protocol: Radiologic exam of the chest. Views: 1 view. COMPARISON: CR XR SHUNT SERIES 07/04/2021 7:43 PM FINDINGS: Limited due to rotation Shunt tubing overlying the right chest with the tip of the catheter in the right upper quadrant Lungs: No consolidation. Pleural spaces: No pleural effusion. No pneumothorax. Heart/Mediastinum: No cardiomegaly. Bones/joints: Unremarkable. IMPRESSION: No acute findings. Exam: CT Abdomen And Pelvis Without Contrast Exam date and time: 07/24/2022 11:01 PM Age: 37 years old Clinical indication: Other: UTI, history of renal stones; Additional info: Best images possible due to PT. Condition TECHNIQUE: Imaging protocol: Computed tomography of the abdomen and pelvis without contrast. COMPARISON: CT ABDOMEN PELVIS W 07/04/2021 11:48 AM FINDINGS: Liver: Normal. No mass. Gallbladder and bile ducts: Normal. No calcified stones. No ductal dilation. Pancreas: Normal. No ductal dilation. Spleen: Normal. No splenomegaly. Adrenal glands: Normal. No mass. Kidneys and ureters:? Bilateral nephrolithiasis No hydronephrosis. Stomach and bowel:? Large dense stool throughout the colon with mild distension Prominent small bowel loops with air-fluid levels. No sharp transition point Appendix: No evidence of appendicitis. Intraperitoneal space:? Ventriculoperitoneal shunt with the tip terminating adjacent to the gaby hepatis No free air. No significant fluid collection. Vasculature: Unremarkable. No abdominal aortic aneurysm. Lymph nodes: Unremarkable. No enlarged lymph nodes. Urinary bladder: Unremarkable as visualized. Reproductive: Unremarkable as visualized. Bones/joints:? Severe levoscoliosis of the spine No acute fracture. Soft tissues: Unremarkable. IMPRESSION: Non-specific bowel gas pattern which may represent mild ileus secondary to constipation. Developing partial small bowel obstruction not completely excluded Bilateral nephrolithiasis without hydroureteronephrosis Nonurgent findings as noted Labs 07/24/22 21:30 07/24/22 21:30 Labs: Laboratory Results - last 24 hr 07/24/22 07/24/22 07/24/22 20:52 21:30 21:30 WBC RBC Hgb Hct MCV MCH MCHC RDW Plt Count MPV Immature Gran % Neutrophils % Lymphocytes % Monocytes % Eosinophils % Basophils % Nucleated RBC % Absolute Neutrophils Absolute Lymphocytes Absolute Monocytes Absolute Eosinophils Absolute Basophils VBG Lactate 1.7 H Sodium 138 Potassium 3.2 L Chloride 102 Carbon Dioxide 27.2 Anion Gap 8.8 BUN 10 Creatinine 0.9 Est GFR (CKD-EPI 2020) 111.42 Glucose 131 H Calcium 9.0 Magnesium 1.9 Total Bilirubin 0.4 AST 18 ALT 32 Alkaline Phosphatase 87 Total Protein 7.8 Albumin 3.4 Procalcitonin Urine Color Urine Clarity Urine pH Ur Specific [place] Urine Protein Urine Ketones Urine Blood Urine Nitrite Urine Bilirubin Urine Urobilinogen Ur Leukocyte Esterase Urine RBC Urine WBC Ur Epithelial Cells Urine Crystals Urine Bacteria Urine Mucus Ur Culture Indicated? Urine Glucose COVID-19 Source Nasopharynx SARS-CoV-2 (PCR) Negative Influenza Type A (PCR) Negative Influenza Type B (PCR) Negative RSV (PCR) Negative 07/24/22 07/24/22 07/24/22 21:30 21:50 22:15 WBC 13.61 H RBC 5.12 Hgb 12.3 L Hct 40.0 MCV 78 L MCH 24.0 L MCHC 30.8 L RDW 17.9 H Plt Count 253 MPV 9.8 Immature Gran % 0.2 Neutrophils % 85.5 Lymphocytes % 8.1 Monocytes % 5.7 Eosinophils % 0.3 Basophils % 0.2 Nucleated RBC % 0.0 Absolute Neutrophils 11.64 H Absolute Lymphocytes 1.10 L Absolute Monocytes 0.78 Absolute Eosinophils 0.04 Absolute Basophils 0.03 VBG Lactate Sodium Potassium Chloride Carbon Dioxide Anion Gap BUN Creatinine Est GFR (CKD-EPI 2020) Glucose Calcium Magnesium Total Bilirubin AST ALT Alkaline Phosphatase Total Protein Albumin Procalcitonin 0.2 Urine Color Yellow Urine Clarity Sl Cloudy Urine pH 5.5 Ur Specific [place] 1.010 Urine Protein 30 H Urine Ketones Negative Urine Blood Small H Urine Nitrite Negative Urine Bilirubin Negative Urine Urobilinogen 0.2 Ur Leukocyte Esterase Small H Urine RBC 3-5 H Urine WBC 10-20 H Ur Epithelial Cells Few Urine Crystals Negative Urine Bacteria Few Urine Mucus Negative Ur Culture Indicated? Yes Urine Glucose Negative COVID-19 Source SARS-CoV-2 (PCR) Influenza Type A (PCR) Influenza Type B (PCR) RSV (PCR) Last Vital Signs Temp 38.6 C H 07/24/22 21:35 Pulse 88 07/24/22 23:21 Resp 19 07/24/22 23:21 BP 84/54 L 07/24/22 23:21 Pulse Ox 95 07/24/22 23:21 Time Spent Time spent with Patient: >75 minutes Time was spent: preparing to see the patient(eg.review tests), obtaining and/or reviewing separately otained hiistory, ordering medications,tests, procedures, referring, communicating with other health hearing healthcare practitioner, indepentently interpreting results and care coordination
[2022-07-25] VITALS (8 sets, daily range): BP systolic 84–95; BP diastolic 50–60; PULSE 79–100; RESP 18–22; TEMP 36.2–37.8; O2SAT 95–99
--- NOTE | 2022-07-25 | DI.CT_ITS ---
Exam(s) CT CHEST WO EXAM: CT CHEST WO CLINICAL HISTORY: infiltrates on xray. TECHNIQUE: Multi planar reconstructions were performed. CONTRAST MATERIAL: None COMPARISON: Recent chest x-ray reviewed FINDINGS: CHEST: LUNGS: There is infiltrate bilaterally. There is patchy airspace infiltrate in the left upper lobe, superior lingular segment, and in the basal segments of the left lower lobe. Relative sparing of the superior segment. No pleural effusions. In the opposite-right lung there is some infiltrate in the posterior aspect of the right upper lobe a s well as faint infiltrates in the posterior and lateral basal segments of the right lower lobe. No pleural effusion on either side. No new significant findings in trachea and mainstem bronchi MEDIASTINUM: There is no obvious hilar nor mediastinal adenopathy. No obvious axillary adenopathy CARDIAC: Heart size is normal. There is no pericardial effusion.Caliber of the thoracic aorta is wit hin normal limits. VISUALIZED UPPER ABDOMEN: Bilateral nephrolithiasis. Ventriculoperitoneal shunts. OSSEOUS: No significant osseous lesions.No fractures.. IMPRESSION: 1. Bilateral infiltrates as described above. Significantly more evident than on today's chest x-ray. 2. No pleural effusions nor obvious intrathoracic adenopathy. RADIATION DOSE DELIVERED: 248.49mGy.cm Total DLP DATA REPOSITORY: All CT scans at this facility are submitted to the National Radiology Data Registry (NRDR) Dose Index Registry (DIR) with the [employer] (ACR). RADIATION OPTIMIZATION: All CT scans at this facility use at least one of these dose optimization te chniques: automated exposure control; mA and/or kV adjustment per patient size (includes targeted exa ms where dose is matched to clinical indication); or iterative reconstruction.
--- NOTE | 2022-07-25 | DI.RAD_ITS ---
Exam(s) XR ABDOMEN FLAT PLATE EXAM: XR ABDOMEN FLAT PLATE CLINICAL HISTORY: question of small bowel obstruction. TECHNIQUE: 2D digital imaging was performed. COMPARISON: CR XR ABDOMEN FLAT PLATE from 10/30/[address] ABDOMEN PELVIS WO from 07/24/2022 CT scan 07/24/2022 reviewed. FINDINGS: Single view-supine There 2 ventriculoperitoneal shunts, 1 longer than the other. One terminates in the right upper quad rant and the other is again noted cross the midline terminate on the left side, similar to previous. On the present supine image the stomach does not appear distended. However, there is an air-filled d istended appearing small bowel in the right-side of the abdomen which exhibits diameter 4 cm. Other air-filled bowel loops in the right-side of the abdomen exhibit upper normal diameters. Cannot asses s for free air or obvious obstruction given that there is no upright nor decubitus view. There are multiple calculi projected over the left kidney-probable nephrolithiasis. Scoliosis convex left again noted as well as pelvic deformities including right hip. IMPRESSION: Probable I ileus pattern but difficult to determine for bowel obstruction without an upright or decub itus view. Other findings as above. DATA REPOSITORY: RADIATION DOSE DELIVERED:
[2022-07-25 00:18] LABS: TSH (W/Ref FT4) 0.63 uIU/mL (0.36-3.74)
[2022-07-25] MEDS: Normal Saline Flush 10 ML SYR IVP ×3 (01:55→15:16)
[2022-07-25] MEDS: Normal Saline 500 ML IV ×2 (01:57→14:05)
[2022-07-25] MEDS: POTASSIUM CHLORIDE/0.9% NACL 1,000 ML 150 MEQ IV ×2 (03:14→11:30)
[2022-07-25 06:59] LABS: HCT 32.7 % (40.0-50.0); MCH 24.4 pg (27.0-33.0); MCHC 30.6 % (32.0-36.0); MCV 80 fL (80-95); MPV 10.7 fL (8.0-11.0); Platelet Count 208 10^3/uL (130-400); RBC 4.09 10^6/uL (4.36-5.78); RDW 17.9 % (11.8-14.1); RDW-SD 52.2 fL; WBC 9.34 10^3/uL (4.4-10.8)
[2022-07-25 07:08] LABS: INR 1.1 (0.9-1.1); Prothrombin Time 11.4 sec (9.3-11.0)
[2022-07-25 07:24] LABS: ALT 19 U/L (16-63); AST 13 U/L (15-37); Albumin 2.1 g/dL (3.4-5.0); Alkaline Phosphatase 54 U/L (46-116); Anion Gap 7.1 mmol/L (3-11); BUN 9 mg/dL (7-18); Bilirubin, Total 0.2 mg/dL (0.2-1.0); CO2 23.9 mmol/L (21.0-32.0); CREATININE 0.7 mg/dL (0.70-1.30); Calcium 7.3 mg/dL (8.5-10.1); Chloride 113 mmol/L (98-107); Glucose 104 mg/dL (74-106); Magnesium 1.7 mg/dL (1.8-2.4); Potassium 3.8 mmol/L (3.5-5.1); Sodium 144 mmol/L (136-145); Total Protein 5.3 g/dL (6.4-8.2)
--- NOTE | 2022-07-25 08:53 | PDOC.CMIN ---
Date of service: 07/25/22 Time of Service: 08:53 Care Management Initial Assmt Initial Assessment REASON FOR HOSPITALIZATION:: Uti PREVIOUS FUNCTIONAL STATUS/SOCIAL/FAMILY SUPPORTS:: Gio lives with a home provider Nancy and he has a court appointed guardian Garland Gaffeny, contact number is [phone]. Chilo is dependent for all ADL's including feeding. He is cared for by Nancy and also her son Taurus. He was previously cared for by Nancy's mother, Arabella, who has recently passed. He is wheelchair dependent. CURRENT FUNCTIONAL STATUS:: Joshua was lying in bed when CM met with him. His caregiver was with him and was able to provide some information. She informed CM that Joshua is doing much better. He is more active and interactive with her. She stated that he seems to be back to his baseline in that regard. Joshua's blood pressure has been on the low side, but that appears to be his baseline. He had a fever of 38.6 last evening but was afebrile during the day today. His WBC has normalized however he has evidence of bilateral infiltrates on chest CT scan and a possible ileus on CT of abdomen. He is currently being treated with Zosyn. ADVANCE DIRECTIVES:: Garland Royal- Legal guardian Has patient been provided with info about the portal/API?: Yes Did the patient sign up for the portal?: Yes (oreviously) CODE STATUS:: DNR/DNI INSURANCE COVERAGE / FINANCIAL ISSUES:: medicaid CURRENT HOME/COMMUNITY SERVICES/EQUIPMENT:: Joshua has a 24 hour caregiver and he lives in her home. He has a wheelchair. Support services through Palliative Care with Dr. Wolf. PRIMARY CARE PHYSICIAN:: Pascual Johnson POTENTIAL DISCHARGE NEEDS:: Follow up with PCP and discharge plan of care PATIENT/FAMILY EDUCATION NEEDS:: Discharge plan, limitations, follow up plan, Ask Me Three TRANSPORTATION:: Anticipate via private vehicle with caregiver when ready. PLAN:: Anticipate Joshua will return home with his caregiver with no additional services when medically cleared. He will follow up with community providers and plan of care and transport with his caregiver. CM will continue to provide support to patient, caregiver and discharge planning considerations. PFSH All Active Problems (Updated 07/25/22 @ 17:21 by Faye Portillo, HAND II TUBE BENDER) Acute UTI (Acute) Sepsis (Acute) Aspiration pneumonia (Acute) Sepsis syndrome (Acute) Breakthrough seizure (Acute) With prolonged Postictal state, resolved. [facility] 06/02/22 Hypokalemia (Acute) [facility] 06/01/22. Acute hypernatremia (Acute) [facility] 06/02/22 Gallbladder sludge (Acute) Goals of care, counseling/discussion (Acute) Palliative care patient (Acute) POLST (Physician Orders for Life-Sustaining Treatment) (Acute) DNI (do not intubate) (Acute) DNR (do not resuscitate) (Acute) Weight loss (Acute) Bilateral kidney stones (Chronic) Anxiety in acute stress reaction (Acute) Dental caries extending into dentin (Acute) Anemia (Chronic) Right nephrolithiasis (Chronic) Seizure (Acute) Status post ventriculoperitoneal shunt (Chronic) GERD (gastroesophageal reflux disease) (Chronic) Vitamin D deficiency (Chronic) Focal epilepsy with impairment of consciousness, intractable (Chronic) Mental retardation (Chronic) non verbal incontinent bladder and bowel Idiopathic scoliosis (Chronic) Hydrocephalus (Chronic 04/30/14) 2014 PROBATION OFFICER shunt malfunction and new shunt inserted at [facility] [place] Apr 2014 Cerebral palsy (Chronic) Severe; 23.5 weeks GA; Spastic quadraplegia non verbal Bowel and bladder incontinence (Chronic 01/28/14) 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 femoral resections H/O nephrostomy History of lung surgery unknown; large scar on chest History of surgical procedure S/P ureteral stent placement (~06/28/18) 06/28/18 [facility] [place]; LEFT-kb SHUNT PROBATION OFFICER SHUNT; revision in 2014 Status post laser lithotripsy of ureteral calculus Family History Mother , AGE 40 Cancer Father No problems noted. Sister Cancer Maternal Grandfather , AGE 73 Cancer Maternal Grandmother , AGE 77 Cancer Brother , MVA AGE 10 No problems noted. Social History Smoking/Tobacco Use Status: Never Smoking risk assessment performed?: Yes Alcohol Intake: never Drug use: Never Substance use type: does not use Caregiver/Support person: Yes Household members: caregiver Housing: house Number of Children: 0 Pets and animals: Yes Pets and animals: dog(s) Sexually active: No What is your relationship status?: never How often do you talk on the phone with friends or family?: never How often do you get together with friends or relatives?: decline to answer How often do you attend rastafarian or nondenominational services?: decline to answer Do you belong to any clubs or organized social groups?: decline to answer Panel score (0-1 are the most socially isolated patients): 0 What type of physical activity do you participate in: other Details: bouncing Duration: < 15 minutes/day Latonya/Islam: None Special latonya needs: No Seatbelt use: always Drive intox or ride w/intox car pick up driver: No Do you feel safe at home: Yes Do you feel safe in your relationship?: Yes
[2022-07-25] MEDS: MAGNESIUM SULFATE 2 GM/50 ML BAG IVPB (09:30)
[2022-07-25] MEDS: carBAMazepine 100 MG CHEW 200 MG PO ×2 (10:45→15:23)
[2022-07-25] MEDS: Gabapentin 800 MG TAB PO ×2 (10:46→15:23)
[2022-07-25] MEDS: levETIRAcetam 500 MG TAB 750 MG PO (10:47)
[2022-07-25] MEDS: Famotidine 20 MG TAB PO (11:31)
[2022-07-25] MEDS: Folic Acid 1 MG TAB PO (11:32)
[2022-07-25] MEDS: Lactobacillus Acidophilus CAP 1 CAP PO (11:32)
[2022-07-25] MEDS: Senna TAB 1 TAB PO (11:33)
[2022-07-25] MEDS: Sucralfate 1 GM TAB PO ×2 (11:33→15:24)
[2022-07-25] MEDS: Pantoprazole 40 MG TABCR PO (11:34)
[2022-07-25 11:57] LABS: Lactate 2.1 mmol/L (0.6-1.4)
--- NOTE | 2022-07-25 13:36 | PGE_ITS ---
Date of Service Date of service: 07/25/22 Time of Service: 13:36 Assessment and Plan Assessment and plan (1) Sepsis syndrome: Status: Acute Assessment and plan: Patient presents with altered mental status and fever with tachycardia and elevated WBC. IV fluid resuscitation along with IV antibiotic for probable source being UTI but also consider respiratory. Read today identifies infiltrates and with presentation with increased cough likely aspiration. Although white count normalized, lactate rising. will broaden antibiotics to cover for asp pneumonia. rebolus with 500 cc NS and repeat lactate in 3 hours. Supportive care with patient being a DNR/DNI. (2) Complicated UTI (urinary tract infection): Status: Resolved Assessment and plan: Patient has a history of UTIs and presents with altered neuro status and fever with bilaterally renal lithiasis which complicate his possible UTI. There is no obstruction. There is no need for immediate intervention but urology will be consulted for possible removal of stones if thought to be necessary. Follow-up urine culture and adjust medical therapy accordingly. (3) Aspiration pneumonia: Status: Acute Assessment and plan: zosyn added. no oxygen requirements continue diet with modifications (4) Hypokalemia: Status: Acute Assessment and plan: Replete with IV fluids as we hydrate. Follow-up labs in morning and adjust as needed. Follow-up magnesium level. (5) Bilateral kidney stones: Status: Chronic Assessment and plan: Consult urology for possible stone removal especially if UTI. (6) Epilepsy: Assessment and plan: Continue outpatient medical therapy as allowed with patient taking orally. discussed with DR Malik Qualifiers: Epilepsy type: partial symptomatic Intractability: intractable Partial seizure type: with simple partial seizures Status epilepticus: without status epilepticus Qualified Code(s): G40.119 - Localization-related (focal) (partial) symptomatic epilepsy and epileptic syndromes with simple partial seizures, intractable, without status epilepticus Subjective Subjective Patient reports: afebrile; denies shortness of breath Exam Const General: comfortable and frail appearing Nutritional Appearance: cachectic and underweight Orientation: alert, awake and other (non verbal, does not follow commands) HENMT Head: normal to inspection and atraumatic Neck Neck: normal visual inspection Resp Effort & Inspection: normal respiratory effort, no cough, no respiratory distress and not tachypneic Cardio Rate: regular rate Rhythm: regular rhythm GI Inspection: normal to inspection and scaphoid Palpation: soft, no guarding and nontender Neuro Speech: speech abnormal Extrem General: other (chronic contractures, spastic quadriplegia) Objective Last Vital Signs Temp 36.5 C 07/25/22 05:30 Pulse 100 H 07/25/22 05:30 Resp 19 07/25/22 05:30 BP 84/60 L 07/25/22 08:39 Pulse Ox 97 07/25/22 05:30 Laboratory Results - last 24 hr 07/24/22 07/24/22 07/24/22 20:52 21:30 21:30 WBC RBC Hgb Hct MCV MCH MCHC RDW Plt Count MPV Immature Gran % Neutrophils % Lymphocytes % Monocytes % Eosinophils % Basophils % Nucleated RBC % Absolute Neutrophils Absolute Lymphocytes Absolute Monocytes Absolute Eosinophils Absolute Basophils PT INR VBG Lactate 1.7 H Sodium 138 Potassium 3.2 L Chloride 102 Carbon Dioxide 27.2 Anion Gap 8.8 BUN 10 Creatinine 0.9 Est GFR (CKD-EPI 2020) 111.42 Glucose 131 H Calcium 9.0 Magnesium 1.9 Total Bilirubin 0.4 AST 18 ALT 32 Alkaline Phosphatase 87 Total Protein 7.8 Albumin 3.4 Procalcitonin TSH Urine Color Urine Clarity Urine pH Ur Specific [place] Urine Protein Urine Ketones Urine Blood Urine Nitrite Urine Bilirubin Urine Urobilinogen Ur Leukocyte Esterase Urine RBC Urine WBC Ur Epithelial Cells Urine Crystals Urine Bacteria Urine Mucus Ur Culture Indicated? Urine Glucose COVID-19 Source Nasopharynx SARS-CoV-2 (PCR) Negative Influenza Type A (PCR) Negative Influenza Type B (PCR) Negative RSV (PCR) Negative 07/24/22 07/24/22 07/24/22 21:30 21:35 21:50 WBC 13.61 H RBC 5.12 Hgb 12.3 L Hct 40.0 MCV 78 L MCH 24.0 L MCHC 30.8 L RDW 17.9 H Plt Count 253 MPV 9.8 Immature Gran % 0.2 Neutrophils % 85.5 Lymphocytes % 8.1 Monocytes % 5.7 Eosinophils % 0.3 Basophils % 0.2 Nucleated RBC % 0.0 Absolute Neutrophils 11.64 H Absolute Lymphocytes 1.10 L Absolute Monocytes 0.78 Absolute Eosinophils 0.04 Absolute Basophils 0.03 PT INR VBG Lactate Sodium Potassium Chloride Carbon Dioxide Anion Gap BUN Creatinine Est GFR (CKD-EPI 2020) Glucose Calcium Magnesium Total Bilirubin AST ALT Alkaline Phosphatase Total Protein Albumin Procalcitonin 0.2 TSH 0.63 Urine Color Urine Clarity Urine pH Ur Specific [place] Urine Protein Urine Ketones Urine Blood Urine Nitrite Urine Bilirubin Urine Urobilinogen Ur Leukocyte Esterase Urine RBC Urine WBC Ur Epithelial Cells Urine Crystals Urine Bacteria Urine Mucus Ur Culture Indicated? Urine Glucose COVID-19 Source SARS-CoV-2 (PCR) Influenza Type A (PCR) Influenza Type B (PCR) RSV (PCR) 07/24/22 07/25/22 07/25/22 22:15 06:06 06:06 WBC 9.34 RBC 4.09 L Hgb 10.0 L D Hct 32.7 L MCV 80 MCH 24.4 L MCHC 30.6 L RDW 17.9 H Plt Count 208 MPV 10.7 Immature Gran % Neutrophils % Lymphocytes % Monocytes % Eosinophils % Basophils % Nucleated RBC % Absolute Neutrophils Absolute Lymphocytes Absolute Monocytes Absolute Eosinophils Absolute Basophils PT INR VBG Lactate Sodium 144 Potassium 3.8 Chloride 113 H Carbon Dioxide 23.9 Anion Gap 7.1 BUN 9 Creatinine 0.7 Est GFR (CKD-EPI 2020) 120.20 Glucose 104 Calcium 7.3 L Magnesium 1.7 L Total Bilirubin 0.2 AST 13 L ALT 19 Alkaline Phosphatase 54 Total Protein 5.3 L Albumin 2.1 L Procalcitonin TSH Urine Color Yellow Urine Clarity Sl Cloudy Urine pH 5.5 Ur Specific [place] 1.010 Urine Protein 30 H Urine Ketones Negative Urine Blood Small H Urine Nitrite Negative Urine Bilirubin Negative Urine Urobilinogen 0.2 Ur Leukocyte Esterase Small H Urine RBC 3-5 H Urine WBC 10-20 H Ur Epithelial Cells Few Urine Crystals Negative Urine Bacteria Few Urine Mucus Negative Ur Culture Indicated? Yes Urine Glucose Negative COVID-19 Source SARS-CoV-2 (PCR) Influenza Type A (PCR) Influenza Type B (PCR) RSV (PCR) 07/25/22 07/25/22 06:06 11:50 WBC RBC Hgb Hct MCV MCH MCHC RDW Plt Count MPV Immature Gran % Neutrophils % Lymphocytes % Monocytes % Eosinophils % Basophils % Nucleated RBC % Absolute Neutrophils Absolute Lymphocytes Absolute Monocytes Absolute Eosinophils Absolute Basophils PT 11.4 H INR 1.1 VBG Lactate 2.1 H Sodium Potassium Chloride Carbon Dioxide Anion Gap BUN Creatinine Est GFR (CKD-EPI 2020) Glucose Calcium Magnesium Total Bilirubin AST ALT Alkaline Phosphatase Total Protein Albumin Procalcitonin TSH Urine Color Urine Clarity Urine pH Ur Specific [place] Urine Protein Urine Ketones Urine Blood Urine Nitrite Urine Bilirubin Urine Urobilinogen Ur Leukocyte Esterase Urine RBC Urine WBC Ur Epithelial Cells Urine Crystals Urine Bacteria Urine Mucus Ur Culture Indicated? Urine Glucose COVID-19 Source SARS-CoV-2 (PCR) Influenza Type A (PCR) Influenza Type B (PCR) RSV (PCR) Time Spent with Patient Time Spent with Patient: 35-49 minutes Time was spent: preparing to see the patient(eg.review tests), ordering medic ations,tests, procedures and indepentently interpreting results
--- NOTE | 2022-07-25 14:27 | W.UROLOGYCON ---
Date of service: 07/25/22 Time of Service: 15:00 Assessment and Plan Assessment and plan (1) Bilateral kidney stones: Status: Chronic Assessment and plan: In looking back at his stone procedures and stone analyses at [facility], there is no evidence that he has ever had a struvite (infection type) kidney stone. There is nothing currently to indicate that he would benefit from any type of urologic intervention for his kidney stones. In fact, he looks to me like the stones are still within the substance of the kidneys and have not made it into the collecting system as of yet. If he were to ever need surgical intervention for kidney stones, unless it is deemed an emergent situation, he would need his surgical procedures done at a tertiary care center. If his urine and blood cultures do in fact show Proteus, we may have to reconsider a surgical option as struvite stones can be highly associated with Proteus UTI and urosepsis. History of Present Illness History of Present Illness Chief Complaint: Bilateral kidney stones Narrative: This is a 37-year-old gentleman who has a past history of kidney stones. He has had previous surgeries with staged ureteroscopy's done at [facility]. We have been following him with renal ultrasounds yearly. At the time of our last discussion in the office, there was some consideration of discontinuing the patient's renal monitoring as it was felt that additional surgical treatments may not be of any interest. He is currently hospitalized with sepsis syndrome. The exact source is not yet identified. There is some concern that he may have a urinary tract infection and urine cultures are pending. Blood cultures are still pending. There is also signs on his chest imaging of pneumonia. When he presented to the emergency room recently, a CT of the abdomen and pelvis was obtained. Multiple kidney stones with no hydronephrosis was identified. I have been asked to weigh in on whether or not the patient would benefit from a urologic surgical procedure. Review of Systems Narrative: Unable to obtain [facility] All Active Problems (Updated 07/25/22 @ 17:21 by Faye Portillo NP) Acute UTI (Acute) Sepsis (Acute) Aspiration pneumonia (Acute) Sepsis syndrome (Acute) Breakthrough seizure (Acute) With prolonged Postictal state, resolved. [facility] 06/02/22 Hypokalemia (Acute) [facility] 06/01/22. Acute hypernatremia (Acute) [facility] 06/02/22 Gallbladder sludge (Acute) Goals of care, counseling/discussion (Acute) Palliative care patient (Acute) POLST (Physician Orders for Life-Sustaining Treatment) (Acute) DNI (do not intubate) (Acute) DNR (do not resuscitate) (Acute) Weight loss (Acute) Bilateral kidney stones (Chronic) Anxiety in acute stress reaction (Acute) Dental caries extending into dentin (Acute) Anemia (Chronic) Right nephrolithiasis (Chronic) Seizure (Acute) Status post ventriculoperitoneal shunt (Chronic) GERD (gastroesophageal reflux disease) (Chronic) Vitamin D deficiency (Chronic) Focal epilepsy with impairment of consciousness, intractable (Chronic) Mental retardation (Chronic) non verbal incontinent bladder and bowel Idiopathic scoliosis (Chronic) Hydrocephalus (Chronic 04/30/14) 2014 [employer] shunt malfunction and new shunt inserted at 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, GERD Anemia, chronic disease (Chronic 09/18/16) Swallowing impaired (Chronic) Medical History Aspiration pneumonia Discharge planning issues DVT prophylaxis Epilepsy (04/12/11) Hydronephrosis (~02/2018) s/p R PCN 03/08/18 Hypernatremia Pneumonia Seizure disorder Surgical History [employer] bilateral prox. femoral resections H/O nephrostomy History of lung surgery unknown; large scar on chest History of surgical procedure S/P ureteral stent placement (~06/28/18) 06/28/18 [facility]; LEFT-kb SHUNT [employer] SHUNT; revision in 2014 Status post laser lithotripsy of ureteral calculus Family History Mother , AGE 40 Cancer Father No problems noted. Sister Cancer Maternal Grandfather , AGE 73 Cancer Maternal Grandmother , AGE 77 Cancer Brother , MVA AGE 10 No problems noted. Social History Smoking/Tobacco Use Status: Never Smoking risk assessment performed?: Yes Alcohol Intake: never Drug use: Never Substance use type: does not use Caregiver/Support person: Yes Household members: caregiver Housing: house Number of Children: 0 Pets and animals: Yes Pets and animals: dog(s) Sexually active: No What is your relationship status?: never How often do you talk on the phone with friends or family?: never How often do you get together with friends or relatives?: decline to answer How often do you attend episcopalian or pentecostal services?: decline to answer Do you belong to any clubs or organized social groups?: decline to answer Panel score (0-1 are the most socially isolated patients): 0 What type of physical activity do you participate in: other Details: bouncing Duration: < 15 minutes/day Latonya/Advent: None Special latonya needs: No Seatbelt use: always Drive intox or ride w/intox substitute bus driver: No Do you feel safe at home: Yes Do you feel safe in your relationship?: Yes Exam Narrative Exam Narrative: He peers to be resting comfortably His vital signs are documented elsewhere in the chart He is awake and alert but not communicative His abdomen is soft. Palpation of the abdomen does not elicit any type of painful response Results Last Vital Signs Temp 36.5 C 07/25/22 05:30 Pulse 100 H 07/25/22 05:30 Resp 19 07/25/22 05:30 BP 84/60 L 07/25/22 08:39 Pulse Ox 97 07/25/22 05:30 Labs 07/26/22 06:13 07/25/22 06:06 Labs: Laboratory Results - last 24 hr 07/24/22 07/24/22 07/24/22 20:52 21:30 21:30 WBC RBC Hgb Hct MCV MCH MCHC RDW Plt Count MPV Immature Gran % Neutrophils % Lymphocytes % Monocytes % Eosinophils % Basophils % Nucleated RBC % Absolute Neutrophils Absolute Lymphocytes Absolute Monocytes Absolute Eosinophils Absolute Basophils PT INR VBG Lactate 1.7 H Sodium 138 Potassium 3.2 L Chloride 102 Carbon Dioxide 27.2 Anion Gap 8.8 BUN 10 Creatinine 0.9 Est GFR (CKD-EPI 2020) 111.42 Glucose 131 H Calcium 9.0 Magnesium 1.9 Total Bilirubin 0.4 AST 18 ALT 32 Alkaline Phosphatase 87 Total Protein 7.8 Albumin 3.4 Procalcitonin TSH Urine Color Urine Clarity Urine pH Ur Specific [place] Urine Protein Urine Ketones Urine Blood Urine Nitrite Urine Bilirubin Urine Urobilinogen Ur Leukocyte Esterase Urine RBC Urine WBC Ur Epithelial Cells Urine Crystals Urine Bacteria Urine Mucus Ur Culture Indicated? Urine Glucose COVID-19 Source Nasopharynx SARS-CoV-2 (PCR) Negative Influenza Type A (PCR) Negative Influenza Type B (PCR) Negative RSV (PCR) Negative 07/24/22 07/24/22 07/24/22 21:30 21:35 21:50 WBC 13.61 H RBC 5.12 Hgb 12.3 L Hct 40.0 MCV 78 L MCH 24.0 L MCHC 30.8 L RDW 17.9 H Plt Count 253 MPV 9.8 Immature Gran % 0.2 Neutrophils % 85.5 Lymphocytes % 8.1 Monocytes % 5.7 Eosinophils % 0.3 Basophils % 0.2 Nucleated RBC % 0.0 Absolute Neutrophils 11.64 H Absolute Lymphocytes 1.10 L Absolute Monocytes 0.78 Absolute Eosinophils 0.04 Absolute Basophils 0.03 PT INR VBG Lactate Sodium Potassium Chloride Carbon Dioxide Anion Gap BUN Creatinine Est GFR (CKD-EPI 2020) Glucose Calcium Magnesium Total Bilirubin AST ALT Alkaline Phosphatase Total Protein Albumin Procalcitonin 0.2 TSH 0.63 Urine Color Urine Clarity Urine pH Ur Specific [place] Urine Protein Urine Ketones Urine Blood Urine Nitrite Urine Bilirubin Urine Urobilinogen Ur Leukocyte Esterase Urine RBC Urine WBC Ur Epithelial Cells Urine Crystals Urine Bacteria Urine Mucus Ur Culture Indicated? Urine Glucose COVID-19 Source SARS-CoV-2 (PCR) Influenza Type A (PCR) Influenza Type B (PCR) RSV (PCR) 07/24/22 07/25/22 07/25/22 22:15 06:06 06:06 WBC 9.34 RBC 4.09 L Hgb 10.0 L D Hct 32.7 L MCV 80 MCH 24.4 L MCHC 30.6 L RDW 17.9 H Plt Count 208 MPV 10.7 Immature Gran % Neutrophils % Lymphocytes % Monocytes % Eosinophils % Basophils % Nucleated RBC % Absolute Neutrophils Absolute Lymphocytes Absolute Monocytes Absolute Eosinophils Absolute Basophils PT INR VBG Lactate Sodium 144 Potassium 3.8 Chloride 113 H Carbon Dioxide 23.9 Anion Gap 7.1 BUN 9 Creatinine 0.7 Est GFR (CKD-EPI 2020) 120.20 Glucose 104 Calcium 7.3 L Magnesium 1.7 L Total Bilirubin 0.2 AST 13 L ALT 19 Alkaline Phosphatase 54 Total Protein 5.3 L Albumin 2.1 L Procalcitonin TSH Urine Color Yellow Urine Clarity Sl Cloudy Urine pH 5.5 Ur Specific [place] 1.010 Urine Protein 30 H Urine Ketones Negative Urine Blood Small H Urine Nitrite Negative Urine Bilirubin Negative Urine Urobilinogen 0.2 Ur Leukocyte Esterase Small H Urine RBC 3-5 H Urine WBC 10-20 H Ur Epithelial Cells Few Urine Crystals Negative Urine Bacteria Few Urine Mucus Negative Ur Culture Indicated? Yes Urine Glucose Negative COVID-19 Source SARS-CoV-2 (PCR) Influenza Type A (PCR) Influenza Type B (PCR) RSV (PCR) 07/25/22 07/25/22 06:06 11:50 WBC RBC Hgb Hct MCV MCH MCHC RDW Plt Count MPV Immature Gran % Neutrophils % Lymphocytes % Monocytes % Eosinophils % Basophils % Nucleated RBC % Absolute Neutrophils Absolute Lymphocytes Absolute Monocytes Absolute Eosinophils Absolute Basophils PT 11.4 H INR 1.1 VBG Lactate 2.1 H Sodium Potassium Chloride Carbon Dioxide Anion Gap BUN Creatinine Est GFR (CKD-EPI 2020) Glucose Calcium Magnesium Total Bilirubin AST ALT Alkaline Phosphatase Total Protein Albumin Procalcitonin TSH Urine Color Urine Clarity Urine pH Ur Specific [place] Urine Protein Urine Ketones Urine Blood Urine Nitrite Urine Bilirubin Urine Urobilinogen Ur Leukocyte Esterase Urine RBC Urine WBC Ur Epithelial Cells Urine Crystals Urine Bacteria Urine Mucus Ur Culture Indicated? Urine Glucose COVID-19 Source SARS-CoV-2 (PCR) Influenza Type A (PCR) Influenza Type B (PCR) RSV (PCR)
--- NOTE | 2022-07-25 14:29 | CHAPLAIN ---
Chilo has been a patient here before, when his caregiver was Arabella. Following her he lived with members of Arabella's family and is now with his current caregiver in [place]. She said she prefers to bring him here because his doctors are here. His caregiver will be spending most of the day here with Chilo. I will continue to visit.
[2022-07-25] MEDS: PIPERACILLIN/TAZO 2.25 GM in Normal Saline 50 ML IVPB (15:23)
[2022-07-25] MEDS: Simethicone 80 MG CHEW CH (15:35)
[2022-07-25] MEDS: Acetaminophen 325 MG TAB PO (15:36)
[2022-07-25 17:21] LABS: Lactate 1.3 mmol/L (0.6-1.4)
[2022-07-25] MEDS: PIPERACILLIN/TAZO 2.25 GM in Normal Saline 50 ML IV (20:29)
[2022-07-25] MEDS: POTASSIUM CHLORIDE/0.9% NACL 1,000 ML 100 MEQ IV (20:32)
[2022-07-25] MEDS: levETIRAcetam 750 MG in Normal Saline 100 ML 400 MG IVPB (23:20)
[2022-07-26] MEDS: PIPERACILLIN/TAZO 2.25 GM in Normal Saline 50 ML IV ×4 (01:57→20:25)
[2022-07-26 03:05] VITALS: BP 113/50; PULSE 84; RESP 22; TEMP 37.1; O2SAT 98
[2022-07-26 06:54] LABS: Abs Immature Grans 0.03 10^3/uL (0.0-0.06); Absolute Basophil Count 0.01 10^3/uL (0.0-0.2); Absolute Eosinophil Count 0.27 10^3/uL (0.0-0.7); Absolute Lymphocyte Count 1.13 10^3/uL (1.2-3.4); Absolute Monocyte Count 0.66 10^3/uL (0.1-0.8); Absolute Neutrophil Count 6.47 10^3/uL (1.2-6.7); Basophils % 0.1; Eosinophils % 3.2; HCT 38.2 % (40.0-50.0); HGB 11.5 g/dL (13.5-17.5); Immature Grans % 0.4; Lymphocytes % 13.2; MCH 24.2 pg (27.0-33.0); MCHC 30.1 % (32.0-36.0); MCV 80 fL (80-95); MPV 10.8 fL (8.0-11.0); Monocytes % 7.7; Neutrophils % 75.4; Platelet Count 191 10^3/uL (130-400); RBC 4.76 10^6/uL (4.36-5.78); RDW 18.8 % (11.8-14.1); RDW-SD 54.5 fL; WBC 8.57 10^3/uL (4.4-10.8)
[2022-07-26 07:03] LABS: Anion Gap 11.4 mmol/L (3-11); BUN 5 mg/dL (7-18); CO2 20.6 mmol/L (21.0-32.0); CREATININE 0.7 mg/dL (0.70-1.30); Calcium 8.5 mg/dL (8.5-10.1); Chloride 119 mmol/L (98-107); Glucose 80 mg/dL (74-106); Magnesium 2.3 mg/dL (1.8-2.4); Potassium 4.1 mmol/L (3.5-5.1); Sodium 151 mmol/L (136-145)
--- NOTE | 2022-07-26 07:12 | W.PM.PROGNOT ---
Date of Service Date of service: 07/26/22 Time of Service: 07:12 Assessment and Plan Assessment and plan (1) Bilateral kidney stones: Status: Chronic Assessment and plan: His urine culture is still pending, but his blood cultures are showing no growth at 24 hours. Clinically, he continues to improve both in terms of his white blood count and his vital signs At this point there is no indication for surgical treatment of his stones. Subjective Subjective Interval history since last seen: His temperature curve continues to improve Exam Narrative Exam Narrative: He does not appear toxic this morning His urine is clear in his drainage bag His abdomen is soft with no peritoneal signs He is awake and alert but not communicative Objective Last Vital Signs Temp 37.1 C 07/26/22 03:05 Pulse 84 07/26/22 03:05 Resp 22 07/26/22 03:05 BP 113/50 L 07/26/22 03:05 Pulse Ox 98 07/26/22 03:05 Laboratory Results - last 24 hr 07/25/22 07/25/22 07/25/22 06:06 06:06 11:50 WBC 9.34 RBC 4.09 L Hgb 10.0 L D Hct 32.7 L MCV 80 MCH 24.4 L MCHC 30.6 L RDW 17.9 H Plt Count 208 MPV 10.7 Immature Gran % Neutrophils % Lymphocytes % Monocytes % Eosinophils % Basophils % Nucleated RBC % Absolute Neutrophils Absolute Lymphocytes Absolute Monocytes Absolute Eosinophils Absolute Basophils VBG Lactate 2.1 H Sodium 144 Potassium 3.8 Chloride 113 H Carbon Dioxide 23.9 Anion Gap 7.1 BUN 9 Creatinine 0.7 Est GFR (CKD-EPI 2020) 120.20 Glucose 104 Calcium 7.3 L Magnesium 1.7 L Total Bilirubin 0.2 AST 13 L ALT 19 Alkaline Phosphatase 54 Total Protein 5.3 L Albumin 2.1 L 07/25/22 07/26/22 17:15 06:13 WBC 8.57 RBC 4.76 Hgb 11.5 L Hct 38.2 L MCV 80 MCH 24.2 L MCHC 30.1 L RDW 18.8 H Plt Count 191 MPV 10.8 Immature Gran % 0.4 Neutrophils % 75.4 Lymphocytes % 13.2 Monocytes % 7.7 Eosinophils % 3.2 Basophils % 0.1 Nucleated RBC % 0.0 Absolute Neutrophils 6.47 Absolute Lymphocytes 1.13 L Absolute Monocytes 0.66 Absolute Eosinophils 0.27 Absolute Basophils 0.01 VBG Lactate 1.3 Sodium Potassium Chloride Carbon Dioxide Anion Gap BUN Creatinine Est GFR (CKD-EPI 2020) Glucose Calcium Magnesium Total Bilirubin AST ALT Alkaline Phosphatase Total Protein Albumin Time Spent with Patient Time Spent with Patient: <25 minutes Time was spent: indepentently interpreting results
[2022-07-26 07:15] VITALS: BP 95/62; PULSE 67; RESP 18; TEMP 36.9; O2SAT 99
[2022-07-26] MEDS: Lactobacillus Acidophilus CAP 1 CAP PO (07:48)
[2022-07-26] MEDS: Folic Acid 1 MG TAB PO (07:48)
[2022-07-26] MEDS: Simethicone 80 MG CHEW CH ×3 (07:48→15:58)
[2022-07-26] MEDS: Pantoprazole 40 MG TABCR PO (07:48)
[2022-07-26] MEDS: Sucralfate 1 GM TAB PO ×3 (07:48→15:58)
[2022-07-26] MEDS: carBAMazepine 100 MG CHEW 200 MG PO ×2 (07:49→13:48)
[2022-07-26] MEDS: Famotidine 20 MG TAB PO (07:49)
[2022-07-26] MEDS: levETIRAcetam 500 MG TAB 750 MG PO (07:49)
[2022-07-26] MEDS: Senna TAB 1 TAB PO (07:49)
[2022-07-26] MEDS: Polyethylene Glycol 3350 17 GM PACKET PO (07:50)
[2022-07-26] MEDS: Gabapentin 800 MG TAB PO ×2 (07:53→13:47)
[2022-07-26] MEDS: SODIUM CHLORIDE 0.45% 1,000 ML 75 ML IV ×2 (08:21→23:27)
--- NOTE | 2022-07-26 08:25 | PDOC.CMPRO ---
Date of service: 07/26/22 Time of Service: 08:25 Care Management Progress Note Progress Note Text Progress Note Text: S/O:Chilo was lying in bed when CM met with him. He was restless but did not seem agitated. Chilo had a low grade fever last evening but has been afebrile all day today. His blood pressure remains soft but improved. The urine culture from 07/24/22 has no growth at 24 hours. Chilo continues to receive IV antibiotics for his pneumonia and possible Uti. If he continues to improve, he may be dischjarged over the weekend, per provider. A: Joshua is a 37 year old male admitted on 07/24/22 with UTI and sepsis P:Anticipate Joshua will return home with his caregiver with no additional services when medically cleared. He will follow up with community providers and plan of care and transport with his caregiver. CM will continue to provide support to patient, caregiver and discharge planning considerations.
[2022-07-26 11:13] VITALS: BP 95/57; PULSE 72; RESP 22; TEMP 37.2; O2SAT 97
[2022-07-26 12:42] LABS: BUN 5 mg/dL (7-18); CREATININE 0.7 mg/dL (0.70-1.30); Calcium 8.6 mg/dL (8.5-10.1); Chloride 117 mmol/L (98-107); Glucose 80 mg/dL (74-106); Potassium 3.5 mmol/L (3.5-5.1); Sodium 152 mmol/L (136-145)
[2022-07-26 15:08] VITALS: BP 102/61; PULSE 101; RESP 20; TEMP 37.3; O2SAT 98
--- NOTE | 2022-07-26 15:19 | W.PM.PROGNOT ---
Date of Service Date of service: 07/26/22 Time of Service: 15:19 Assessment and Plan Assessment and plan (1) Sepsis syndrome: Status: Acute Assessment and plan: Patient presents with altered mental status and fever with tachycardia and elevated WBC. IV fluid resuscitation along with IV antibiotic for UTI and pneumonia Continue broaden antibiotics to cover for asp pneumonia. (2) Complicated UTI (urinary tract infection): Status: Resolved Assessment and plan: awaiting ID and sensitivities. continue zosyn day 2 Patient has a history of UTIs and presents with altered neuro status and fever with bilaterally renal lithiasis which complicate his possible UTI. There is no obstruction. There is no need for immediate intervention and urology consulted. No surgical recommendations at this time. (3) Aspiration pneumonia: Status: Acute Assessment and plan: zosyn day 2, no oxygen requirements continue diet with modifications (4) Hypokalemia: Status: Acute Assessment and plan: Replete and follow (5) Bilateral kidney stones: Status: Chronic Assessment and plan: see urology consultation. (6) Epilepsy: Assessment and plan: Continue outpatient medical therapy as allowed with patient taking orally. discussed with DR Malik Qualifiers: Epilepsy type: partial symptomatic Partial seizure type: with simple partial seizures Intractability: intractable Status epilepticus: without status epilepticus Qualified Code(s): G40.119 - Localization-related (focal) (partial) symptomatic epilepsy and epileptic syndromes with simple partial seizures, intractable, without status epilepticus Subjective Subjective Patient reports: afebrile; denies shortness of breath Interval history since last seen: appears at baseline Exam Const General: comfortable and frail appearing Nutritional Appearance: cachectic and underweight Orientation: alert, awake and other (non verbal, does not follow commands) [facility] Head: normal to inspection and atraumatic Neck Neck: normal visual inspection Resp Effort & Inspection: normal respiratory effort, no cough, no respiratory distress and not tachypneic Cardio Rate: regular rate Rhythm: regular rhythm GI Inspection: normal to inspection and scaphoid Palpation: soft, no guarding and nontender Neuro Speech: speech abnormal Extrem General: other (chronic contractures, spastic quadriplegia) Objective Last Vital Signs Temp 37.3 C 07/26/22 15:08 Pulse 101 H 07/26/22 15:08 Resp 20 07/26/22 15:08 BP 102/61 07/26/22 15:08 Pulse Ox 98 07/26/22 15:08 Laboratory Results - last 24 hr 07/25/22 07/26/22 07/26/22 17:15 06:13 06:13 WBC 8.57 RBC 4.76 Hgb 11.5 L Hct 38.2 L MCV 80 MCH 24.2 L MCHC 30.1 L RDW 18.8 H Plt Count 191 MPV 10.8 Immature Gran % 0.4 Neutrophils % 75.4 Lymphocytes % 13.2 Monocytes % 7.7 Eosinophils % 3.2 Basophils % 0.1 Nucleated RBC % 0.0 Absolute Neutrophils 6.47 Absolute Lymphocytes 1.13 L Absolute Monocytes 0.66 Absolute Eosinophils 0.27 Absolute Basophils 0.01 VBG Lactate 1.3 Sodium 151 H Potassium 4.1 Chloride 119 H Carbon Dioxide 20.6 L Anion Gap 11.4 H BUN 5 L Creatinine 0.7 Est GFR (CKD-EPI 2020) 120.20 Glucose 80 Calcium 8.5 Magnesium 2.3 07/26/22 12:08 WBC RBC Hgb Hct MCV MCH MCHC RDW Plt Count MPV Immature Gran % Neutrophils % Lymphocytes % Monocytes % Eosinophils % Basophils % Nucleated RBC % Absolute Neutrophils Absolute Lymphocytes Absolute Monocytes Absolute Eosinophils Absolute Basophils VBG Lactate Sodium 152 H Potassium 3.5 Chloride 117 H Carbon Dioxide 19.0 L Anion Gap 16.0 H BUN 5 L Creatinine 0.7 Est GFR (CKD-EPI 2020) 120.20 Glucose 80 Calcium 8.6 Magnesium Time Spent with Patient Time Spent with Patient: 35-49 minutes Time was spent: preparing to see the patient(eg.review tests), obtaining and/or reviewing separately otained hiistory, ordering medications,tests, procedures and indepentently interpreting results
[2022-07-26] MEDS: Acetaminophen 325 MG TAB PO (18:42)
[2022-07-26 19:37] VITALS: BP 109/71; PULSE 99; RESP 22; TEMP 37.8; O2SAT 93
[2022-07-27] VITALS (8 sets, daily range): BP systolic 93–100; BP diastolic 53–63; PULSE 55–88; RESP 16–22; TEMP 36.3–37.4; O2SAT 94–99
[2022-07-27] MEDS: PIPERACILLIN/TAZO 2.25 GM in Normal Saline 50 ML IV ×2 (01:52→08:28)
[2022-07-27 06:44] LABS: Abs Immature Grans 0.09 10^3/uL (0.0-0.06); Absolute Basophil Count 0.04 10^3/uL (0.0-0.2); Absolute Eosinophil Count 0.28 10^3/uL (0.0-0.7); Absolute Monocyte Count 0.61 10^3/uL (0.1-0.8); Basophils % 0.4; HGB 10.7 g/dL (13.5-17.5); Lymphocytes % 18.4; MCHC 30.6 % (32.0-36.0); MCV 79 fL (80-95); Monocytes % 6.6; Neutrophils % 70.6; Platelet Count 234 10^3/uL (130-400); RBC 4.45 10^6/uL (4.36-5.78); RDW 18.2 % (11.8-14.1); WBC 9.22 10^3/uL (4.4-10.8)
[2022-07-27 06:59] LABS: Anion Gap 8.4 mmol/L (3-11); BUN 5 mg/dL (7-18); CO2 22.6 mmol/L (21.0-32.0); CREATININE 0.8 mg/dL (0.70-1.30); Calcium 8.3 mg/dL (8.5-10.1); Chloride 112 mmol/L (98-107); Estimated GFR 115.45 (mL/min/1.73m2); Glucose 89 mg/dL (74-106); Potassium 3.3 mmol/L (3.5-5.1); Sodium 143 mmol/L (136-145)
[2022-07-27] MEDS: Polyethylene Glycol 3350 17 GM PACKET PO (08:12)
[2022-07-27] MEDS: Potassium Chloride 20 MEQ TABCR 40 MEQ PO (08:12)
[2022-07-27] MEDS: Pantoprazole 40 MG TABCR PO (08:15)
[2022-07-27] MEDS: Simethicone 80 MG CHEW CH ×2 (08:15→11:45)
[2022-07-27] MEDS: Sucralfate 1 GM TAB PO ×2 (08:15→11:45)
[2022-07-27] MEDS: carBAMazepine 100 MG CHEW 200 MG PO ×2 (08:15→20:53)
[2022-07-27] MEDS: levETIRAcetam 500 MG TAB 750 MG PO ×2 (08:15→20:52)
[2022-07-27] MEDS: Senna TAB 1 TAB PO (08:16)
[2022-07-27] MEDS: Folic Acid 1 MG TAB PO (08:16)
[2022-07-27] MEDS: Famotidine 20 MG TAB PO ×2 (08:16→20:55)
[2022-07-27] MEDS: Gabapentin 800 MG TAB PO ×2 (08:17→20:54)
[2022-07-27] MEDS: Lactobacillus Acidophilus CAP 1 CAP PO ×2 (08:17→21:00)
--- NOTE | 2022-07-27 10:18 | W.PM.PROGNOT ---
Date of Service Date of service: 07/27/22 Time of Service: 10:19 Assessment and Plan Assessment and plan (1) Sepsis syndrome: Status: Acute Assessment and plan: IV antibiotic for UTI and pneumonia changed to oral Augmentin (reviewed dosing w Pharmacist s/t wt of 31 kg) (2) Complicated UTI (urinary tract infection): Status: Resolved Assessment and plan: awaiting ID and sensitivities. No growth @ 48 h. There is no obstruction. There is no need for immediate intervention and urology was consulted. No surgical recommendations at this time. (3) Aspiration pneumonia: Status: Acute Assessment and plan: DC Zoxyn; started Augmentin orally - no oxygen requirements continue diet with modifications (4) Hypokalemia: Status: Acute Assessment and plan: Replete and follow 3.3 today (5) Bilateral kidney stones: Status: Chronic Assessment and plan: see urology consultation. (6) Epilepsy: Assessment and plan: Continue outpatient medical therapy as allowed with patient taking orally. Home Friday if he does well with oral abx. discussed with Dr. Malik Qualifiers: Epilepsy type: partial symptomatic Partial seizure type: with simple partial seizures Intractability: intractable Status epilepticus: without status epilepticus Qualified Code(s): G40.119 - Localization-related (focal) (partial) symptomatic epilepsy and epileptic syndromes with simple partial seizures, intractable, without status epilepticus Subjective Subjective Patient reports: no new complaints, tolerating liquids well, bowel movement and afebrile; denies diarrhea or vomiting Exam Const General: comfortable and frail appearing Nutritional Appearance: cachectic and underweight Orientation: alert, awake and other (non verbal, does not follow commands) [facility] Head: normal to inspection and atraumatic Neck Neck: normal visual inspection Resp Effort & Inspection: normal respiratory effort, no cough, no respiratory distress and not tachypneic Cardio Rate: regular rate Rhythm: regular rhythm GI Inspection: normal to inspection and scaphoid Palpation: soft, no guarding and nontender Neuro Speech: speech abnormal Extrem General: other (chronic contractures, spastic quadriplegia) Objective Last Vital Signs Temp 36.7 C 07/27/22 06:27 Pulse 72 07/27/22 06:27 Resp 16 07/27/22 06:27 BP 100/63 07/27/22 06:27 Pulse Ox 99 07/27/22 06:27 Laboratory Results - last 24 hr 07/26/22 07/27/22 07/27/22 12:08 06:28 06:28 WBC 9.22 RBC 4.45 Hgb 10.7 L Hct 35.0 L MCV 79 L MCH 24.0 L MCHC 30.6 L RDW 18.2 H Plt Count 234 MPV 10.0 Immature Gran % 1.0 Neutrophils % 70.6 Lymphocytes % 18.4 Monocytes % 6.6 Eosinophils % 3.0 Basophils % 0.4 Nucleated RBC % 0.0 Absolute Neutrophils 6.50 Absolute Lymphocytes 1.70 Absolute Monocytes 0.61 Absolute Eosinophils 0.28 Absolute Basophils 0.04 Sodium 152 H 143 Potassium 3.5 3.3 L Chloride 117 H 112 H Carbon Dioxide 19.0 L 22.6 Anion Gap 16.0 H 8.4 BUN 5 L 5 L Creatinine 0.7 0.8 Est GFR (CKD-EPI 2020) 120.20 115.45 Glucose 80 89 Calcium 8.6 8.3 L Time Spent with Patient Time Spent with Patient: 25-34 minutes Time was spent: preparing to see the patient(eg.review tests), ordering medications,tests, procedures, referring, communicating with other health toddler caregiver, indepentently interpreting results, counseling the patient and care coordination
[2022-07-27] MEDS: Acetaminophen 650 MG SUPP PR (14:10)
[2022-07-27] MEDS: Amoxicillin 600 MG/Clav. 42.9 MG 75 ML BTL PO (21:00)
--- NOTE | 2022-07-28 00:04 | NUR.NOTE ---
This RN phoned caregiver Ashley @ start of shift requesting if she could come in and spent an hour with the pt because pt had minimal oral intake and refused evening meds. @around 2029, caregiver and her family came in to see pt. Ashley (caregiver) was able to get pt up in wheelchair, pt accepted food and a glass of apple juice from her. Pt was able to take medication. Caregiver reported that when pt is rocking/nodding head back and forth pt is in a good mood. Whenever pt bites at hands or use hand to hit his head the pt is agitated. The caregiver also mentioned that she believes the pt is ready to get out of the hospital hence pt being resistive to care which is not unusual for pt. Nursing Note:
[2022-07-28 03:26] VITALS: BP 96/60; PULSE 62; RESP 18; TEMP 36; O2SAT 97
[2022-07-28 06:15] VITALS: BP 89/43; PULSE 58; RESP 18; TEMP 36.6; O2SAT 97
[2022-07-28] MEDS: carBAMazepine 100 MG CHEW 200 MG PO (06:41)
[2022-07-28] MEDS: Gabapentin 800 MG TAB PO (06:42)
[2022-07-28 07:16] VITALS: BP 92/54; PULSE 77; RESP 16; TEMP 36.7; O2SAT 98
[2022-07-28 07:36] LABS: Absolute Basophil Count 0.03 10^3/uL (0.0-0.2); Absolute Eosinophil Count 0.27 10^3/uL (0.0-0.7); Absolute Lymphocyte Count 1.58 10^3/uL (1.2-3.4); Absolute Monocyte Count 0.51 10^3/uL (0.1-0.8); Absolute Neutrophil Count 5.33 10^3/uL (1.2-6.7); Basophils % 0.4; Eosinophils % 3.5; HCT 37.7 % (40.0-50.0); HGB 11.5 g/dL (13.5-17.5); Immature Grans % 1.3; Lymphocytes % 20.2; MCH 23.9 pg (27.0-33.0); MCHC 30.5 % (32.0-36.0); MCV 78 fL (80-95); MPV 10.4 fL (8.0-11.0); Monocytes % 6.5; Neutrophils % 68.1; Platelet Count 212 10^3/uL (130-400); RBC 4.81 10^6/uL (4.36-5.78); RDW 18.4 % (11.8-14.1); RDW-SD 51.9 fL; WBC 7.82 10^3/uL (4.4-10.8)
[2022-07-28] MEDS: Senna TAB 1 TAB PO (07:46)
[2022-07-28 07:50] LABS: Anion Gap 10.2 mmol/L (3-11); BUN 3 mg/dL (7-18); CO2 24.8 mmol/L (21.0-32.0); CREATININE 0.6 mg/dL (0.70-1.30); Chloride 111 mmol/L (98-107); Estimated GFR 125.93 (mL/min/1.73m2); Glucose 78 mg/dL (74-106); Potassium 3.4 mmol/L (3.5-5.1); Sodium 146 mmol/L (136-145)
[2022-07-28] MEDS: Amoxicillin 600 MG/Clav. 42.9 MG 75 ML BTL PO (08:06)
[2022-07-28] MEDS: Potassium Chloride 20 MEQ TABCR 40 MEQ PO (09:44)
[2022-07-28 11:35] VITALS: BP 99/57; PULSE 75; RESP 20; TEMP 36.4; O2SAT 98
--- NOTE | 2022-07-28 11:50 | DSE_ITS ---
Date of service: 07/28/22 Time of Service: 11:50 DS: Diagnosis Discharge Diagnosis (1) Sepsis syndrome: Status: Acute (2) Complicated UTI (urinary tract infection): Status: Resolved (3) Aspiration pneumonia: Status: Acute (4) Hypokalemia: Status: Acute (5) Bilateral kidney stones: Status: Chronic (6) Epilepsy: Discharge Plan Disposition Patient Disposition: Home Condition: Fair Discharge Details Reason For Visit: UTI,Sepsis Admit Date/Time: 07/24/22 23:46 Admit Provider: Eran Diego Attending Provider: Eran Diego Primary Care Provider: Pascual Johnson Hospital Course Hospital Course: This is a 37-year-old male patient with a history of cerebral palsy with mental retardation and [employer] shunt with past seizure activity, who is very debilitated and requires complete support, who resides at home with caretakers, presented to the [facility] ED with a change in his behavior over the last several days and fever up to 101 at home. He was admitted to the hospital with a UTI and elevated leukosytosis; he does have bilateral renal stones with no obstruction.? He was initiated on high-dose Rocephin.? He had no difficulty breathing and no GI symptoms reported.? Patient not able to offer any further history.? He is a DNR/DNI.? He was seen by urology and was found to currently not have anything to indicate he would benefit from any type of urologic intervention for kidney stones. He improved clinically and was taking oral medications and nutrition.? He did? have hypokalemia and his potassium was repleted.? He is being discharged with oral potassium and recommended that he have his electrolytes checked 07/31/2022.? He originally had hypernatremia but after hydration, this normalized.? He did not have any seizures while hospitalized. His urine culture and blood cultures were negative.? He was transitioned from IV Zosyn to oral Augmentin. ? His vital signs were stable with no fevers.? He is discharged to home, stable, with care givers to continue Augmentin for a total of a 10 day course (7 more days). Discussed with Dr Malik Home Meds and New Rx's Prescriptions: New amoxicillin-pot clavulanate 600-42.9 mg/5 mL Suspension For Reconstitution 5 ml PO BID Qty: 0 0RF potassium chloride 20 mEq packet 20 meq PO BID Qty: 30 0RF amoxicillin-pot clavulanate [Augmentin] 500-125 mg tablet 1 tab PO BID Qty: 14 0RF Continued epinephrine 0.3 mg/0.3 mL auto-injector 0.3 mg IM ONCE Qty: 2 1RF Rx Instructions: PRN FOR ANAPHYLAXIS Pediatric Balanced Nutrition 0.03-1 gram-kcal/mL liquid 237 ml PO BID PRN (Reason: underweight) Qty: 7110 11RF Rx Instructions: PEDIASURE famotidine 20 mg tablet 20 mg PO BID Qty: 180 3RF pantoprazole 40 mg tablet,delayed release (DR/EC) 40 mg PO BID Qty: 180 3RF Rx Instructions: 1 TAB BID gabapentin 800 mg tablet 800 mg PO TID Qty: 270 3RF levetiracetam 750 mg tablet 750 mg PO BID Qty: 180 3RF diazepam 5-7.5-10 mg kit 5 mg IN Q12H PRN (Reason: seizure activity) Qty: 3 5RF Rx Instructions: 5mg rectally every 12 hours as needed for seizure activity greater than 30 seconds simethicone [Gas-X Extra Strength] 125 mg capsule 125 mg PO AC carbamazepine 100 mg tablet,chewable 200 mg PO TID Qty: 540 3RF bisacodyl 10 mg suppository 10 mg IN DAILY PRN (Reason: constipation) Qty: 12 2RF nystatin 100,000 unit/gram cream 1 applic TP BID PRN (Reason: intertrigo) Qty: 30 5RF acetaminophen 650 mg suppository See Rx Instructions .ROUTE .COMPLEX Qty: 100 3RF Dose Instruction: USE 650MG RECTALLY THREE TIMES A DAY NEEDED Rx Instructions: USE 650MG RECTALLY THREE TIMES A DAY NEEDED sennosides [Senna Laxative] 8.6 mg tablet 8.6 mg PO BID Qty: 180 3RF Vitamin B-6 50 mg capsule 50 mg PO DAILY Qty: 90 3RF folic acid 1 mg tablet 1 mg PO DAILY Qty: 90 3RF polyethylene glycol 3350 17 gram powder in packet 17 g PO DAILY Qty: 100 3RF melatonin 5 mg capsule 5 mg PO HS Qty: 90 3RF Lactobacillus acidophilus 100 million cell capsule 100 mmu cells PO BID Qty: 180 3RF docusate sodium 100 mg capsule 200 mg PO TID Qty: 540 3RF sucralfate 1 gram tablet 1 g PO AC Qty: 90 11RF Rx Instructions: dose reduction 06/13/22 Perla Protect(dimethicone-zinc) 142 GM cream 1 gm PRN PRN Discharge Instructions Instructions: Amoxicillin/Clavulanate Potassium (By mouth), Urinary Tract Infection in Men (DC), Aspiration Pneumonia (DC), Sepsis (DC) Additional Instructions: Continue Augmentin twice a day for 7 days. Start potassium 20 meq twice a day. Recommend checking electrolytes on Friday this week, 07/31/2022. Per childcare center director request oral Augmentin in pill form has been electronically sent to his pharmacy. She can choose which he does better with. Note the pills are 500 mg/125 mg; one twice a day for 7 days. Stand Alone Forms: Nursing Discharge Form Referrals: Pascual Johnson MD [Primary Care Provider] - (Please call Friday to make a follow up appointment for 1-2 weeks. ) Activity:: Activity as Tolerated Equipment/Supplies:: No Equipment Needed Diet:: As Tolerated Discharge Orders Discharge Orders: Discharge Order (Routine); Ordered 07/28/22 Ordered By: Carmen Renee Other Ambulatory Orders: Basic Metabolic Panel (Routine) Timeframe: [id number] Location: None Selected Ordered By: Carmen Renee DS: Summary Time Spent with Patient providing and/or coordinating discharge services: Greater than 30 minutes Status at Discharge Functional status at discharge: bed bound Overall status at discharge: patient is progressing back to baseline Mental Status: other Speech and Movement: other Mood: other Affect: other Exam Narrative Exam Narrative: Supine in bed, non-verbal, eyes open, does not follow commands. Const General: comfortable and frail appearing Nutritional Appearance: cachectic and underweight Orientation: alert, awake and other (non verbal, does not follow commands) [facility] Head: normal to inspection and atraumatic Neck Neck: normal visual inspection Resp Effort & Inspection: normal respiratory effort, no cough, no respiratory distress and not tachypneic Cardio Rate: regular rate Rhythm: regular rhythm GI Inspection: normal to inspection and scaphoid Palpation: soft, no guarding and nontender Neuro Speech: speech abnormal Extrem General: other (chronic contractures, spastic quadriplegia) Psych Mental Status: other Speech and Movement: other Mood: other Affect: other DS: Data Vitals/I&O Vitals and I&O: Vital Signs Temperature 36.4 C L 07/28/22 11:35 Temperature Source Tympanic 07/28/22 11:35 Pulse 75 07/28/22 11:35 Pulse Rhythm Regular 07/28/22 08:00 Respiratory Rate 20 07/28/22 11:35 Respiratory Effort Normal, Non-Labored 07/28/22 08:00 Respiratory Depth Normal 07/28/22 08:00 Respiratory Pattern Normal 07/28/22 08:00 Blood Pressure 99/57 L 07/28/22 11:35 Blood Pressure Position Sitting 07/24/22 20:47 Pulse Oximetry 98 07/28/22 11:35 Oxygen Delivery Method Room Air 07/28/22 11:35 Oxygen Flow Rate 0 07/28/22 11:35 Pain Level 0 07/27/22 11:39 Comment unable to get bp due to pt moving 07/27/22 15:06 Intake & Output 07/27/22 07/27/22 07/28/22 11:59 23:59 11:59 Intake Total 220 / 1220 1000 / 1220 360 / 360 Balance 220 / 1220 1000 / 1220 360 / 360 Weight 30.9 kg 28.7 kg Intake: IV 100 / 1100 1000 / 1100 Oral 120 / 120 360 / 360 Other: Urine Color Yellow Yellow Yellow Urine Appearance Clear Urine Odor Normal Normal Stool Size Copious Stool Characteristics Soft Brown Voiding Methods Diaper Diaper Diaper Incontinent Incontinent Incontinent Data Completed and Pending Labs on day of discharge: Labs from last 24 hours 07/28/22 07/28/22 06:30 06:30 WBC 7.82 RBC 4.81 Hgb 11.5 L Hct 37.7 L MCV 78 L MCH 23.9 L MCHC 30.5 L RDW 18.4 H Plt Count 212 MPV 10.4 Immature Gran % 1.3 Neutrophils % 68.1 Lymphocytes % 20.2 Monocytes % 6.5 Eosinophils % 3.5 Basophils % 0.4 Nucleated RBC % 0.0 Absolute Neutrophils 5.33 Absolute Lymphocytes 1.58 Absolute Monocytes 0.51 Absolute Eosinophils 0.27 Absolute Basophils 0.03 Sodium 146 H Potassium 3.4 L Chloride 111 H Carbon Dioxide 24.8 Anion Gap 10.2 BUN 3 L Creatinine 0.6 L Est GFR (CKD-EPI 2020) 125.93 Glucose 78 Calcium 9.0 Magnesium 2.0 Preliminary micro results at discharge 07/24/22 21:50 Blood Culture - Preliminary Blood NO GROWTH 72 HOURS 07/24/22 21:30 Blood Culture - Preliminary Blood NO GROWTH 72 HOURS [facility] All Active Problems (Updated 07/25/22 @ 17:21 by Faye Portillo, KASEY) Acute UTI (Acute) Sepsis (Acute) Aspiration pneumonia (Acute) Sepsis syndrome (Acute) Breakthrough seizure (Acute) With prolonged Postictal state, resolved. [facility] 06/02/22 Hypokalemia (Acute) [facility] 06/01/22. Acute hypernatremia (Acute) [facility] 06/02/22 Gallbladder sludge (Acute) Goals of care, counseling/discussion (Acute) Palliative care patient (Acute) POLST (Physician Orders for Life-Sustaining Treatment) (Acute) DNI (do not intubate) (Acute) DNR (do not resuscitate) (Acute) Weight loss (Acute) Bilateral kidney stones (Chronic) Anxiety in acute stress reaction (Acute) Dental caries extending into dentin (Acute) Anemia (Chronic) Right nephrolithiasis (Chronic) Seizure (Acute) Status post ventriculoperitoneal shunt (Chronic) GERD (gastroesophageal reflux disease) (Chronic) Vitamin D deficiency (Chronic) Focal epilepsy with impairment of consciousness, intractable (Chronic) Mental retardation (Chronic) non verbal incontinent bladder and bowel Idiopathic scoliosis (Chronic) Hydrocephalus (Chronic 04/30/14) 2014 [employer] shunt malfunction and new shunt inserted at [facility] Apr 2014 Cerebral palsy (Chronic) Severe; 23.5 weeks GA; Spastic quadraplegia non verbal Bowel and bladder incontinence (Chronic 01/28/14) 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 femoral resections H/O nephrostomy History of lung surgery unknown; large scar on chest History of surgical procedure S/P ureteral stent placement (~06/28/18) 06/28/18 [facility]; LEFT-kb SHUNT [employer] SHUNT; revision in 2015 Status post laser lithotripsy of ureteral calculus Family History Mother , AGE 40 Cancer Father No problems noted. Sister Cancer Maternal Grandfather , AGE 73 Cancer Maternal Grandmother , AGE 77 Cancer Brother , MVA AGE 10 No problems noted. Social History Smoking/Tobacco Use Status: Never Smoking risk assessment performed?: Yes Alcohol Intake: never Drug use: Never Substance use type: does not use Caregiver/Support person: Yes Household members: caregiver Housing: house Number of Children: 0 Pets and animals: Yes Pets and animals: dog(s) Sexually active: No What is your relationship status?: never How often do you talk on the phone with friends or family?: never How often do you get together with friends or relatives?: decline to answer How often do you attend scientologist or gnosticist services?: decline to answer Do you belong to any clubs or organized social groups?: decline to answer Panel score (0-1 are the most socially isolated patients): 0 What type of physical activity do you participate in: other Details: bouncing Duration: < 15 minutes/day Latonya/Yazidi: None Special latonya needs: No Seatbelt use: always Drive intox or ride w/intox truck driver helper: No Do you feel safe at home: Yes Do you feel safe in your relationship?: Yes Time Spent with Patient Time Spent with Patient: 45-69 minutes Time was spent: preparing to see the patient(eg.review tests), ordering medications,tests, procedures, referring, communicating with other health clinical care leader, indepentently interpreting results, counseling the patient and care coordination
--- NOTE | 2022-07-28 14:02 | PDOC.CMDIS ---
Date of service: 07/28/22 Time of Service: 14:02 LACE Index Scoring Tool Questions: Length of Stay (in days): 4 - 6 E.D. Visits: 1 Care Management Discharge Plan Reason for Hospitalization: Uti, Sepsis Discharge Plan: Gio is discharged home with Caregiver Ashley with resumption of community supports. He will follow up with community providers and discharge plan of care as prescribed. Primary Guardian is out of town, discharge is reviewed with both Ashley and Covering Guardian (via phone). Patient/Family Education Needs: Review discharge instructions, limitations, medications and plan to follow up with community providers and discharge plan of care as prescribed. Discuss ask me three and goals of self care.
[2022-07-28 15:09] VITALS: BP 93/57; PULSE 63; RESP 16; TEMP 36.1; O2SAT 99
== END 2022-07-28 16:18 | disposition home or self-care (01) | DRG 871 ==
LOC: ER 07-25 00:05 → MS 07-25 01:25
PROVIDERS: Internal Medicine; Admitting Provider Family Medicine; Emergency Provider Nurse Practitioner Acute Care; PCP Family Medicine; Visit Provider Family Medicine
DX: A41.9 Sepsis, unspecified organism (principal); G80.0 Spastic quadriplegic cerebral palsy; J69.0 Pneumonitis due to inhalation of food and vomit; N39.0 Urinary tract infection, site not specified; G40.119 Localization-related (focal) (partial) symptomatic epilepsy and epileptic syndromes with simple partial seizures, intractable, without status epilepticus; E87.1 Hypo-osmolality and hyponatremia; R64 Cachexia; H54.3 Unqualified visual loss, both eyes; N20.0 Calculus of kidney; E55.9 Vitamin D deficiency, unspecified; R13.10 Dysphagia, unspecified; K21.9 Gastro-esophageal reflux disease without esophagitis; Z98.2 Presence of cerebrospinal fluid drainage device; R15.9 Full incontinence of feces; R32 Unspecified urinary incontinence; M41.20 Other idiopathic scoliosis, site unspecified; D64.9 Anemia, unspecified; E87.6 Hypokalemia; Z66 Do not resuscitate; F41.8 Other specified anxiety disorders; F43.0 Acute stress reaction; K02.9 Dental caries, unspecified; F79 Unspecified intellectual disabilities
CPT/HCPCS: 36415; 51701; 71250; 80048; 80053; 84145; 85027; 87040; 87637; 96361; 96365; 96375; 99285; 71045; 74018; 74176; 81003; 81015; 83605; 83735; 84443; 85025; 85610; 87086; 99223; 99232; 99233; 99239; J1885; J1953; J2543

== ENCOUNTER 2022-08-03 20:36 | Inpatient (IN) | payer MEDICAID, SELFPAY ==
[2022-08-03 21:03] VITALS: BP 108/67; PULSE 83; RESP 16; TEMP 38.2; O2SAT 99
--- NOTE | 2022-08-03 21:04 | ED.GENADUL_ITS ---
Discharge Plan Disposition Patient Disposition: Admit to [facility] Discharge Details Clinical Impression: Fever, AMS (altered mental status) Primary Care Provider: Pascual Johnson ED Provider: Garland Cardenas [facility] and New Rx's Prescriptions: No Action epinephrine 0.3 mg/0.3 mL auto-injector 0.3 mg IM ONCE Qty: 2 1RF Rx Instructions: PRN FOR ANAPHYLAXIS Pediatric Balanced Nutrition 0.03-1 gram-kcal/mL liquid 237 ml PO BID PRN (Reason: underweight) Qty: 7110 11RF Rx Instructions: PEDIASURE pantoprazole 40 mg tablet,delayed release (DR/EC) 40 mg PO BID Qty: 180 3RF Rx Instructions: 1 TAB BID gabapentin 800 mg tablet 800 mg PO TID Qty: 270 3RF levetiracetam 750 mg tablet 750 mg PO BID Qty: 180 3RF diazepam 5-7.5-10 mg kit 5 mg DC Q12H PRN (Reason: seizure activity) Qty: 3 5RF Rx Instructions: 5mg rectally every 12 hours as needed for seizure activity greater than 30 s econds simethicone [Gas-X Extra Strength] 125 mg capsule 125 mg PO AC carbamazepine 100 mg tablet,chewable 200 mg PO TID Qty: 540 3RF bisacodyl 10 mg suppository 10 mg DC DAILY PRN (Reason: constipation) Qty: 12 2RF nystatin 100,000 unit/gram cream 1 applic TP BID PRN (Reason: intertrigo) Qty: 30 5RF acetaminophen 650 mg suppository See Rx Instructions .ROUTE .COMPLEX Qty: 100 3RF Dose Instruction: USE 650MG RECTALLY THREE TIMES A DAY NEEDED Rx Instructions: USE 650MG RECTALLY THREE TIMES A DAY NEEDED sennosides [Senna Laxative] 8.6 mg tablet 8.6 mg PO BID Qty: 180 3RF Vitamin B-6 50 mg capsule 50 mg PO DAILY Qty: 90 3RF folic acid 1 mg tablet 1 mg PO DAILY Qty: 90 3RF polyethylene glycol 3350 17 gram powder in packet 17 g PO DAILY Qty: 100 3RF melatonin 5 mg capsule 5 mg PO HS Qty: 90 3RF Lactobacillus acidophilus 100 million cell capsule 100 mmu cells PO BID Qty: 180 3RF docusate sodium 100 mg capsule 200 mg PO TID Qty: 540 3RF sucralfate 1 gram tablet 1 g PO AC Qty: 90 11RF Rx Instructions: dose reduction 06/13/22 famotidine 20 mg tablet 20 mg PO BID Qty: 180 3RF Perla Protect(dimethicone-zinc) 142 GM cream 1 gm PRN PRN amoxicillin-pot clavulanate 600-42.9 mg/5 mL Suspension For Reconstitution 5 ml PO BID Qty: 0 0RF potassium chloride 20 mEq packet 20 meq PO BID Qty: 30 0RF amoxicillin-pot clavulanate [Augmentin] 500-125 mg tablet 1 tab PO BID Qty: 14 0RF Medical Decision Making Patient's rectal temp here 100.8. Heart rate and blood pressure normal. Saturation on room air normal. Appears to have a benign abdomen. Lungs sound diminished but otherwise clear. Previous abdominal CT on last admission unremarkable except for bilateral lung infiltrates. Given body habitus and nonverbal nature we will proceed with CT chest abdomen pelvis to evaluate for potential source of his fever. We will also obtain CT head given his altered mental status. Blood culture and straight cath urine to be obtained. Laboratory studies sent and fluids started. Patient's laboratory studies tonight are unremarkable. He has a normal white count as well as normal electrolytes, kidney function, liver function. Urinalysis not convincing for UTI. He remains unchanged per the cafe operator. CT head is negative per radiology. CT chest with continued infiltrates in both lungs but much improved compared to previous. Abdomen pelvis without acute pathology.. Discussed with cafe operator. Discussed with hospitalist. We will plan admission for fluids, monitoring. Hold off on antibiotics as he is just completed a course and blood cultures, urine cultures are pending. Medical Records Medical records reviewed: Yes I reviewed the patient's medical records. Lab Data Lab results reviewed: Yes I reviewed the patient's lab results. HPI General Mode of arrival: wheelchair . Date/Time Provider Initiated Documentation: 08/03/22 20:49 . Information obtained by: RN notes reviewed and old records reviewed . HPI Narrative: Patient brought to ED by his cafe operator for evaluation of low-grade fever, altered mental status, refusal of anything orally. Patient with cerebral palsy and is nonverbal. Recent admission for similar presentation. Treated for aspiration pneumonia and possible UTI though urine culture and blood cultures were all negative. He has 1 more day of Augmentin to complete after discharge from his last admission. Per cafe operator he was in respite over the weekend. Reportedly had temp with Tmax at 100. He has not really had anything orally and is refusing food, water, medications. He seems a little more agitated as well as lethargic more so than usual. Director Long Term Care does report that his cough does seem better than when he was previously admitted. He has had no vomiting. He has had some loose stool but no persistent diarrhea. Related Data Home Medications Medication Instructions Recorded Confirmed dimethicone-zinc oxide topical 1 gm PRN PRN 05/31/17 07/24/22 cream (Perla Protect (dimethicone-zinc oxide) topical cream) bisacodyl 10 mg rectal suppository 10 mg DC DAILY PRN constipation 11/24/18 07/24/22 #12 ea nystatin 100,000 unit/gram topical 1 applic topical BID PRN 06/04/19 07/24/22 cream intertrigo #30 grams simethicone 125 mg capsule (Gas-X 125 mg PO AC gas 11/01/20 07/24/22 Extra Strength) epinephrine 0.3 mg/0.3 mL 0.3 mg (0.3 mL) IM ONCE #2 pens 06/27/21 07/24/22 injection, auto-injector pedi nutrition,iron,lact-free 0.03 237 ml PO BID PRN underweight 06/27/21 07/24/22 gram-1 kcal/mL oral liquid #7,110 mL (Pediatric Balanced Nutrition) acetaminophen 650 mg rectal See Rx Instructions .Route 07/09/21 07/24/22 suppository .COMPLEX #100 ea diazepam 5 mg-7.5 mg-10 mg rectal 5 mg DC Q12H PRN seizure activity 02/27/22 07/24/22 kit #3 ea gabapentin 800 mg tablet 800 mg PO TID #270 tabs 02/27/22 07/24/22 levetiracetam 750 mg tablet 750 mg PO BID #180 tabs 02/27/22 07/24/22 pyridoxine (vitamin B6) 50 mg 50 mg PO DAILY #90 caps 04/10/22 07/24/22 capsule (Vitamin B-6) sennosides 8.6 mg tablet (Senna 8.6 mg PO BID #180 tabs 04/10/22 07/24/22 Laxative) Lactobacillus acidophilus 100 100 mmu cells PO BID diarrhea #180 05/13/22 07/24/22 million cell capsule caps folic acid 1 mg tablet 1 mg PO DAILY #90 tabs 05/13/22 07/24/22 melatonin 5 mg capsule 5 mg PO HS #90 caps 05/13/22 07/24/22 polyethylene glycol 3350 17 gram 17 g PO DAILY constipation #100 ea 05/13/22 07/24/22 oral powder packet docusate sodium 100 mg capsule 200 mg PO TID constipation #540 06/05/22 07/24/22 caps carbamazepine 100 mg chewable 200 mg PO TID #540 tabs 06/12/22 07/24/22 tablet sucralfate 1 gram tablet 1 g PO AC #90 tabs 06/13/22 07/24/22 pantoprazole 40 mg tablet,delayed 40 mg PO BID #180 tab-caps 07/03/22 07/24/22 release amoxicillin 500 mg-potassium 1 tab PO BID #14 tabs 07/28/22 clavulanate 125 mg tablet (Augmentin) amoxicillin 600 mg-potassium 5 ml PO BID #0 mL 07/28/22 clavulanate 42.9 mg/5 mL oral suspension potassium chloride 20 mEq oral 20 meq PO BID #30 ea 07/28/22 packet famotidine 20 mg tablet 20 mg PO BID #180 tabs 07/29/22 Previous Rx's Medication Instructions Recorded bisacodyl 10 mg rectal suppository 10 mg DC DAILY PRN constipation 11/24/18 #12 ea nystatin 100,000 unit/gram topical 1 applic topical BID PRN 06/04/19 cream intertrigo #30 grams epinephrine 0.3 mg/0.3 mL 0.3 mg (0.3 mL) IM ONCE #2 pens 06/27/21 injection, auto-injector pedi nutrition,iron,lact-free 0.03 237 ml PO BID PRN underweight 06/27/21 gram-1 kcal/mL oral liquid #7,110 mL (Pediatric Balanced Nutrition) acetaminophen 650 mg rectal See Rx Instructions .Route 07/09/21 suppository .COMPLEX #100 ea diazepam 5 mg-7.5 mg-10 mg rectal 5 mg DC Q12H PRN seizure activity 02/27/22 kit #3 ea gabapentin 800 mg tablet 800 mg PO TID #270 tabs 02/27/22 levetiracetam 750 mg tablet 750 mg PO BID #180 tabs 02/27/22 pyridoxine (vitamin B6) 50 mg 50 mg PO DAILY #90 caps 04/10/22 capsule (Vitamin B-6) sennosides 8.6 mg tablet (Senna 8.6 mg PO BID #180 tabs 04/10/22 Laxative) Lactobacillus acidophilus 100 100 mmu cells PO BID diarrhea #180 05/13/22 million cell capsule caps folic acid 1 mg tablet 1 mg PO DAILY #90 tabs 05/13/22 melatonin 5 mg capsule 5 mg PO HS #90 caps 05/13/22 polyethylene glycol 3350 17 gram 17 g PO DAILY constipation #100 ea 05/13/22 oral powder packet docusate sodium 100 mg capsule 200 mg PO TID constipation #540 06/05/22 caps carbamazepine 100 mg chewable 200 mg PO TID #540 tabs 06/12/22 tablet sucralfate 1 gram tablet 1 g PO AC #90 tabs 06/13/22 pantoprazole 40 mg tablet,delayed 40 mg PO BID #180 tab-caps 07/03/22 release amoxicillin 500 mg-potassium 1 tab PO BID #14 tabs 07/28/22 clavulanate 125 mg tablet (Augmentin) amoxicillin 600 mg-potassium 5 ml PO BID #0 mL 07/28/22 clavulanate 42.9 mg/5 mL oral suspension potassium chloride 20 mEq oral 20 meq PO BID #30 ea 07/28/22 packet famotidine 20 mg tablet 20 mg PO BID #180 tabs 07/29/22 Allergies Allergy/AdvReac Type Severity Reaction Status Date / Time latex Allergy Severe ANAPHYLAXIS Verified 07/24/22 20:53 venom-honey bee Allergy Unknown Verified 07/24/22 20:53 adhesive tape AdvReac Severe irritation, Verified 07/24/22 20:53 rash heparin AdvReac Severe GI BLEED Verified 07/24/22 20:53 NSAIDS (Non-Steroidal AdvReac Intermediate GI BLEED Verified 07/24/22 20:53 Anti-Inflamma ferrous sulfate AdvReac Verified 07/24/22 20:53 General JUANJO: 3 Review of Systems Narrative: From cafe operator per HPI. PFSH All Active Problems (Updated 08/03/22 @ 23:40 by Garland Cardenas MD) Fever (Acute) AMS (altered mental status) (Acute) Pneumonia (Acute) Acute UTI (Acute) Sepsis (Acute) Aspiration pneumonia (Acute) Sepsis syndrome (Acute) Breakthrough seizure (Acute) With prolonged Postictal state, resolved. [facility] 06/02/22 Hypokalemia (Acute) [facility] 06/01/22. Acute hypernatremia (Acute) [facility] 06/02/22 Gallbladder sludge (Acute) Goals of care, counseling/discussion (Acute) Palliative care patient (Acute) POLST (Physician Orders for Life-Sustaining Treatment) (Acute) DNI (do not intubate) (Acute) DNR (do not resuscitate) (Acute) Weight loss (Acute) Anxiety in acute stress reaction (Acute) Dental caries extending into dentin (Acute) Anemia (Chronic) Right nephrolithiasis (Chronic) Seizure (Acute) Status post ventriculoperitoneal shunt (Chronic) Vitamin D deficiency (Chronic) Focal epilepsy with impairment of consciousness, intractable (Chronic) Mental retardation (Chronic) non verbal incontinent bladder and bowel Idiopathic scoliosis (Chronic) Hydrocephalus (Chronic 04/30/14) 2014 [employer]ANDER [employer] BUFFER shunt malfunction and new shunt inserted at [facility] Apr 2014 Bowel and bladder incontinence (Chronic 01/28/14) 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 femoral resections H/O nephrostomy History of lung surgery unknown; large scar on chest History of surgical procedure S/P ureteral stent placement (~06/28/18) 06/28/18 [facility] [place]; LEFT-kb SHUNT SANDER AND BUFFER SHUNT; revision in 2014 Status post laser lithotripsy of ureteral calculus Family History Mother , AGE 40 Cancer Father No problems noted. Sister Cancer Maternal Grandfather , AGE 73 Cancer Maternal Grandmother , AGE 77 Cancer Brother , MVA AGE 10 No problems noted. Social History Smoking/Tobacco Use Status: Never Smoking risk assessment performed?: Yes Alcohol Intake: never Drug use: Never Substance use type: does not use Caregiver/Support person: Yes Household members: caregiver Housing: house Number of Children: 0 Pets and animals: Yes Pets and animals: dog(s) Sexually active: No What is your relationship status?: never How often do you talk on the phone with friends or family?: never How often do you get together with friends or relatives?: decline to answer How often do you attend baptism or hinduism services?: decline to answer Do you belong to any clubs or organized social groups?: decline to answer Panel score (0-1 are the most socially isolated patients): 0 What type of physical activity do you participate in: other Details: bouncing Duration: < 15 minutes/day Latonya/Spiritism: None Special latonya needs: No Seatbelt use: always Drive intox or ride w/intox industrial 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 HEENT: NC/AT. Lungs: Normal respiratory effort. Lungs sound diminished but clear Cor: RRR. Good radial pulses. GI: Soft. NT/ND. Neuro: Awake but not himself per cafe operator. Spastic quad. Ext: No C/C/E. Skin: Warm and dry without rash.
--- NOTE | 2022-08-03 21:15 | DI.CT_ITS ---
Exam(s) CT HEAD WO EXAM: CT HEAD WO CLINICAL HISTORY: mental status change. TECHNIQUE: Imaging Protocol: Axial computed tomography images with coronal and sagittal reformatted images were created and reviewed COMPARISON: CT CT HEAD WO from 07/04/2021 FINDINGS: Ventricles and Extra axial spaces: Normal in size and morphology for the patient's age. Hemorrhage: None. Cerebral parenchyma: There is agenesis of the corpus callosum. The left-sided is stable in position. There is no acute territorial infarct. Stable cerebellar and cerebral atrophy. Midline shift: None. Brainstem/Cerebellum: Normal. Calvarium: Normal. Visualized Paranasal sinuses/Mastoids: Clear. Soft Tissues: Stable calcification of the orbital globes IMPRESSION: No acute intracranial process. RADIATION DOSE DELIVERED: 760.74mGy.cm Total DLP DATA REPOSITORY: All CT scans at this facility are submitted to the National Radiology Data Registry (NRDR) Dose Index Registry (DIR) with the [employer] (ACR). RADIATION OPTIMIZATION: All CT scans at this facility use at least one of these dose optimization te chniques: automated exposure control; mA and/or kV adjustment per patient size (includes targeted exa ms where dose is matched to clinical indication); or iterative reconstruction.
--- NOTE | 2022-08-03 21:15 | DI.CT_ITS ---
Exam(s) CT CHEST/ABD/PEL W EXAM: CT CHEST/ABD/PEL W CLINICAL HISTORY: mental status change, recent pneumonia TECHNIQUE: Imaging Protocol: Axial computed tomography images with coronal and sagittal reformatted images were created and reviewed CONTRAST MATERIAL: Intravenous: Omnipaque 350 contrast volume:70 mL Oral: No COMPARISON: CT CT CHEST WO from 07/25/2022 FINDINGS: The examination is limited due to patient motion artifact. CHEST: Tracheobronchial tree: Patent where visualized. Pulmonary parenchyma: There are patchy infiltrate seen in the lower lobes bilaterally. There are imp roved compared to the examination from 07/24/2022. No architectural distortion. Visualized thyroid gland: Unremarkable. Mediastinum and Megha: No dominant adenopathy or fluid collection. There is some fluid seen in the upp er esophagus. Pleura: No effusion or pneumothorax. Heart: The heart is not dilated. No coronary artery calcifications are seen. No pericardial effusion. Pulmonary arteries: Segmental subsegmental pulmonary arteries are not well opacified. No large centr al pulmonary embolus is seen. Aorta: Thoracic aorta non-dilated. No evidence of dissection. Lymph nodes: Within normal limits. Tubes, Catheters, and Lines: There is a ventriculoperitoneal shunt in place. Soft tissues: Unremarkable. Bones:Within normal limits for the patient's age. ABDOMEN: Liver: Normal density. No measurable mass. Portal, Superior Mesenteric, and Splenic Veins: Unremarkable. Gallbladder and Biliary Tract: No radiodense calculus or dilation. Pancreas: Normal density, no abnormal calcifications or inflammatory process. Spleen: Normal. Adrenals: No masses seen. Kidneys: Normal size, contour and axis. There are numerous bilateral renal stones. This may represen t nephrolithiasis or medullary nephrocalcinosis. No hydronephrosis. There are few tiny hypodensitie s in the kidneys. They are too small for further characterization but likely reflect small cysts. N o follow-up is recommended. Abdominal Aorta: Abdominal portion non-dilated. Bowel: There are fluid-filled loops of large bowel and small bowel. This may represent a diarrheal i llness. No evidence of obstruction. No evidence of appendicitis. Peritoneal Cavity: No ascites, collection or mesenteric inflammatory response. No free air. Lymph Nodes: Within normal limits. Bones: There is chronic deformity of the femoral heads. There is a left convex scoliosis. Soft Tissues: Unremarkable. PELVIS: Bladder: Symmetric distention, no gross wall thickening. Reproductive Organs: Unremarkable as visualized. Lymph Nodes: Within normal limits. Bones: Within normal limits. IMPRESSION: 1. But persistent pulmonary infiltrates in the lower lobes. 2. No evidence of a pulmonary embolism. 3. No acute abdominal or pelvic process. 4. Fluid seen within the small large bowel which may represent a diarrheal illness. RADIATION DOSE DELIVERED: 474.09mGy.cm Total DLP DATA REPOSITORY: All CT scans at this facility are submitted to the National Radiology Data Registry (NRDR) Dose Index Registry (DIR) with the [employer] (ACR). RADIATION OPTIMIZATION: All CT scans at this facility use at least one of these dose optimization te chniques: automated exposure control; mA and/or kV adjustment per patient size (includes targeted exa ms where dose is matched to clinical indication); or iterative reconstruction.
[2022-08-03 21:43] LABS: Abs Immature Grans 0.04 10^3/uL (0.0-0.06); Absolute Basophil Count 0.03 10^3/uL (0.0-0.2); Absolute Eosinophil Count 0.04 10^3/uL (0.0-0.7); Absolute Lymphocyte Count 1.47 10^3/uL (1.2-3.4); Absolute Monocyte Count 0.52 10^3/uL (0.1-0.8); Absolute Neutrophil Count 8.68 10^3/uL (1.2-6.7); Basophils % 0.3; Eosinophils % 0.4; HCT 42.1 % (40.0-50.0); HGB 12.7 g/dL (13.5-17.5); Immature Grans % 0.4; Lymphocytes % 13.6; MCH 23.9 pg (27.0-33.0); MCHC 30.2 % (32.0-36.0); MCV 79 fL (80-95); MPV 9.7 fL (8.0-11.0); Monocytes % 4.8; Neutrophils % 80.5; Platelet Count 393 10^3/uL (130-400); RBC 5.32 10^6/uL (4.36-5.78); RDW 17.8 % (11.8-14.1); RDW-SD 50.7 fL; WBC 10.78 10^3/uL (4.4-10.8)
[2022-08-03 22:05] LABS: Bilirubin Negative (Negative); Blood Moderate (Negative); Clarity Clear (Clear); Glucose Negative (Negative); Ketones Negative (Negative); Leukocyte Esterase Moderate (Negative); Nitrite Negative (Negative); Urobilinogen 0.2 mg/dL (Up to 0.2); pH 6.5 (5-8)
[2022-08-03 22:14] LABS: Bacteria Few HPF (Negative); C & S Indicated? Yes; Casts 0-2 Hyaline LPF (Negative); Crystals Negative HPF (Negative); Epithelial Cells Rare HPF (Negative); Mucus Negative (Negative); Other Cells Rare Transitional (Negative)
[2022-08-03 22:29] LABS: ALT 29 U/L (16-63); AST 23 U/L (15-37); Albumin 3.2 g/dL (3.4-5.0); Alkaline Phosphatase 92 U/L (46-116); Anion Gap 9.4 mmol/L (3-11); BUN 9 mg/dL (7-18); Bilirubin, Total 0.3 mg/dL (0.2-1.0); CO2 26.6 mmol/L (21.0-32.0); CREATININE 0.8 mg/dL (0.70-1.30); Calcium 9.5 mg/dL (8.5-10.1); Chloride 107 mmol/L (98-107); Estimated GFR 115.45 (mL/min/1.73m2); Glucose 97 mg/dL (74-106); Sodium 143 mmol/L (136-145)
[2022-08-03] MEDS: Omnipaque 350 MG/ML 100 ML BTL IJ (22:29)
[2022-08-03] MEDS: Normal Saline - Diluent 50 ML VIAL IJ (22:29)
[2022-08-03] MEDS: Lactated Ringers 1,000 ML 1000 ML IV (23:13)
[2022-08-03 23:30] VITALS: BP 111/61; PULSE 78; RESP 18; O2SAT 93
--- NOTE | 2022-08-03 23:35 | DI.VRAD_ITS ---
PROCEDURE INFORMATION: Exam: CT Head Without Contrast Exam date and time: 08/03/2022 22:43 Age: 37 years old Clinical indication: Altered mental status/memory loss; Patient HX: Mental status change TECHNIQUE: Imaging protocol: Computed tomography of the head without contrast. COMPARISON: CT HEAD WO 07/04/2021 19:21 FINDINGS: Tubes, catheters and devices: Left parietal approach ventricular catheter in the region of the left ventricular atrium, satisfactory and stable. Brain: Moderate chronic cerebellar atrophy again seen. 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 No significant white matter disease for the patient's age. No edema or hemorrhage. Cerebral ventricles: The lateral ventricles are generally decompressed and on the left in particular may communicate with chronic extra-axial space centrally. Pattern similar to prior. There is a chronic left frontal oriented shunt which is disconnected laterally and this is stable. Paranasal sinuses: No acute sinusitis. Mastoid air cells: No mastoid effusion. Orbital cavities: Chronic bilateral enophthalmos and calcification of the globes. Bones/joints: No acute fracture. Soft tissues: No suspicious lesions. IMPRESSION: 1. No acute intracranial findings. 2. Left parietal approach ventricular catheter in the region of the left ventricular atrium, satisfactory and stable. 3. Chronic findings as above are stable. Dictated and Authenticated by: Lizbeth Bourgeois MD. Ordering:LEEANNE Haque MD
--- NOTE | 2022-08-03 23:55 | DI.VRAD_ITS ---
PROCEDURE INFORMATION: Exam: CT Chest With Contrast; Diagnostic Exam date and time: 08/03/2022 10:48 PM Age: 37 years old Clinical indication: Patient HX: Mental status change, recent pneumonia TECHNIQUE: Imaging protocol: Diagnostic computed tomography of the chest with contrast. 3D rendering (Not supervised by radiologist): MIP and/or 3D reconstructed images were created by the technologist. COMPARISON: XR PORTABLE CHEST AP 07/24/2022 9:56 PM FINDINGS: Tubes, catheters and devices: Ventriculoperitoneal shunt catheters traverse the left cervical region anterior thorax and terminate within the peritoneum and the pelvis. Lungs: Moderate size blebs are present within the lungs bilaterally. Patchy infiltrate seen within the right lower and left lower lobes of the lung persist but are improved compared to the prior study of 07/24/2022. There is heterogeneous attenuation of the pulmonary parenchyma, consistent with air trapping from underlying small airways disease. Pleural spaces: There is no evidence of pneumothorax. There are no pleural effusions present. Heart: The cardiac structures are normal. Lymph nodes: Unremarkable. No enlarged lymph nodes. Vasculature: There is no evidence of filling defects within the pulmonary arterial circulation to suggest pulmonary embolism. The aorta is normal. Intraperitoneal space: Please see CT of the abdomen and pelvis. Please see CT of the abdomen and pelvis. Bones/joints: Convex levoscoliosis and chest wall deformity consistent with congenital cerebral palsy. Soft tissues: Unremarkable. IMPRESSION: 1. Patchy infiltrate seen within the right lower and left lower lobes of the lung persist but are improved compared to the prior study of 07/24/2022. 2. There is heterogeneous attenuation of the pulmonary parenchyma, consistent with air trapping from underlying small airways disease. 3. There is no evidence of filling defects within the pulmonary arterial circulation to suggest pulmonary embolism. PROCEDURE INFORMATION: Exam: CT Abdomen And Pelvis With Contrast Exam date and time: 08/03/2022 10:48 PM Age: 37 years old Clinical indication: Patient HX: Mental status change, recent pneumonia TECHNIQUE: Imaging protocol: Computed tomography of the abdomen and pelvis with contrast. 3D rendering (Not supervised by radiologist): MIP and/or 3D reconstructed images were created by the technologist. COMPARISON: CT ABDOMEN PELVIS WO 07/24/2022 11:01 PM FINDINGS: Liver: There is a diffuse decrease in hepatic parenchymal density, consistent with fatty infiltration. ChangeThere are no focal liver lesions present. There is no evidence of intrahepatic or extrahepatic biliary ductal dilation. Gallbladder and bile ducts: The gallbladder is normal. There is no cholelitiasis, wall thickening or pericholecystic fluid to suggest cholecystitis. Pancreas: Normal. No ductal dilation. Spleen: The spleen is normal. Adrenal glands: Normal. No mass. Kidneys and ureters: Innumerable bilateral nonobstructing intrarenal nephrolithiasis. Stomach and bowel: There is mild increased colonic fecal content. The colon is nondilated. These findings suggest a mild degree of constipation. This is improved markedly compared to 07/24/2022. There are air-fluid levels throughout the small bowel and colon likely representing recent enema or laxative administration. Appendix: No evidence of appendicitis. Intraperitoneal space: Unremarkable. No free air. No significant fluid collection. Vasculature: Unremarkable. No abdominal aortic aneurysm. Lymph nodes: Unremarkable. No enlarged lymph nodes. Urinary bladder: Unremarkable as visualized. Reproductive: Unremarkable as visualized. Bones/joints: Severe bilateral hip dysplasia is consistent cerebral palsy. Severe levoconvex scoliosis stable. Soft tissues: Unremarkable. IMPRESSION: 1. Improving constipation. 2. Hepatic steatosis. Dictated and Authenticated by: Cali Agarwal MD. Ordering:LEEANNE Haque MD
--- NOTE | 2022-08-04 | HPE_ITS ---
Date of service: 08/04/22 Time of Service: 00:00 Assessment and Plan Assessment and plan (1) Fever: Status: Acute Assessment and plan: Fever and somnolence, source not evident. By history the pneumonia has seemed to be resolving, though a new aspiration event would be possible. Low grade pyuria noted, but has had this in past with negative cultures, and has been on antibiotics. C diff to be considered with recent antibiotics and report of loose stool but no CT findings. I do believe this is probably infectious, but may be viral. I am inclined to await cultures, check C diff, check viral swab for flu and COVID and hold on additional antibiotics for the present, will maintain IVF in meantime. For seizures will convert Keppra to IV. Tegretol not available IV so will have to hold. Also noted to be on Gabapentin and will also have to hold as not IV. Will change PPI to IV. For pneumonia has essentially completed course of therapy, will not resume. Remains DNR History of Present Illness History of Present Illness Chief Complaint: fever, somnolence Narrative: 37 male with h/o cerebral palsy, spastic quadriplegia. Here last week with pneumonia, treated with Unasyn then home on Augmentin. 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 In ER findings of note for temp 38.2; white count 10; urinalysis with 5-10 WBC with few bacteria; CT head negative; CT chest showing improving pneumonia; CT abdomen w/o acute findings. Blood cultures obtained and I was asked to evaluate for admission. Utility Bag Assembler notes single episode of loose stool both yesterday and today. No illness at home (was at respite yesterday, likewise no illness known). Is va ccinated against both COVID and flu. No cough, rash. Review of Systems Narrative: per HPI PFSH All Active Problems Fever (Acute) AMS (altered mental status) (Acute) Pneumonia (Acute) Acute UTI (Acute) Sepsis (Acute) Aspiration pneumonia (Acute) Sepsis syndrome (Acute) Breakthrough seizure (Acute) With prolonged Postictal state, resolved. [facility] 06/02/22 Hypokalemia (Acute) [facility] 06/01/22. Acute hypernatremia (Acute) [facility] 06/02/22 Gallbladder sludge (Acute) Goals of care, counseling/discussion (Acute) Palliative care patient (Acute) POLST (Physician Orders for Life-Sustaining Treatment) (Acute) DNI (do not intubate) (Acute) DNR (do not resuscitate) (Acute) Weight loss (Acute) Anxiety in acute stress reaction (Acute) Dental caries extending into dentin (Acute) Anemia (Chronic) Right nephrolithiasis (Chronic) Seizure (Acute) Status post ventriculoperitoneal shunt (Chronic) Vitamin D deficiency (Chronic) Focal epilepsy with impairment of consciousness, intractable (Chronic) Mental retardation (Chronic) non verbal incontinent bladder and bowel Idiopathic scoliosis (Chronic) Hydrocephalus (Chronic 04/30/14) 2014 [employer] shunt malfunction and new shunt inserted at [facility] Apr 2014 Bowel and bladder incontinence (Chronic 01/28/14) 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 femoral resections H/O nephrostomy History of lung surgery unknown; large scar on chest History of surgical procedure S/P ureteral stent placement (~06/28/18) 06/28/18 [facility]; LEFT-kb SHUNT [employer] SHUNT; revision in 2014 Status post laser lithotripsy of ureteral calculus Family History Mother , AGE 40 Cancer Father No problems noted. Sister Cancer Maternal Grandfather , AGE 73 Cancer Maternal Grandmother , AGE 77 Cancer Brother , MVA AGE 10 No problems noted. Social History Smoking/Tobacco Use Status: Never Smoking risk assessment performed?: Yes Alcohol Intake: never Drug use: Never Substance use type: does not use Caregiver/Support person: Yes Household members: caregiver Housing: house Number of Children: 0 Pets and animals: Yes Pets and animals: dog(s) Sexually active: No What is your relationship status?: never How often do you talk on the phone with friends or family?: never How often do you get together with friends or relatives?: decline to answer How often do you attend orthodoxy or jehovah's witness services?: decline to answer Do you belong to any clubs or organized social groups?: decline to answer Panel score (0-1 are the most socially isolated patients): 0 What type of physical activity do you participate in: other Details: bouncing Duration: < 15 minutes/day Latonya/Yarsanism: None Special latonya needs: No Seatbelt use: always Drive intox or ride w/intox local bulk driver: No Do you feel safe at home: Yes Do you feel safe in your relationship?: Yes Meds Allergies and Home Medications Allergies Allergy/AdvReac Type Severity Reaction Status Date / Time latex Allergy Severe ANAPHYLAXIS Verified 07/24/22 20:53 venom-honey bee Allergy Unknown Verified 07/24/22 20:53 adhesive tape AdvReac Severe irritation, Verified 07/24/22 20:53 rash heparin AdvReac Severe GI BLEED Verified 07/24/22 20:53 NSAIDS (Non-Steroidal AdvReac Intermediate GI BLEED Verified 07/24/22 20:53 Anti-Inflamma ferrous sulfate AdvReac Verified 07/24/22 20:53 Home Medications Medication Instructions Recorded Confirmed Type dimethicone-zinc oxide topical 1 gm PRN PRN 05/31/17 07/24/22 History cream (Perla Protect (dimethicone-zinc oxide) topical cream) bisacodyl 10 mg rectal suppository 10 mg [place] DAILY PRN constipation 11/24/18 07/24/22 Rx #12 ea nystatin 100,000 unit/gram topical 1 applic topical BID PRN 06/04/19 07/24/22 Rx cream intertrigo #30 grams simethicone 125 mg capsule (Gas-X 125 mg PO AC gas 11/01/20 07/24/22 History Extra Strength) epinephrine 0.3 mg/0.3 mL 0.3 mg (0.3 mL) IM ONCE #2 pens 06/27/21 07/24/22 Rx injection, auto-injector pedi nutrition,iron,lact-free 0.03 237 ml PO BID PRN underweight 06/27/21 07/24/22 Rx gram-1 kcal/mL oral liquid #7,110 mL (Pediatric Balanced Nutrition) acetaminophen 650 mg rectal See Rx Instructions .Route 07/09/21 07/24/22 Rx suppository .COMPLEX #100 ea diazepam 5 mg-7.5 mg-10 mg rectal 5 mg [place] Q12H PRN seizure activity 02/27/22 07/24/22 Rx kit #3 ea gabapentin 800 mg tablet 800 mg PO TID #270 tabs 02/27/22 07/24/22 Rx levetiracetam 750 mg tablet 750 mg PO BID #180 tabs 02/27/22 07/24/22 Rx pyridoxine (vitamin B6) 50 mg 50 mg PO DAILY #90 caps 04/10/22 07/24/22 Rx capsule (Vitamin B-6) sennosides 8.6 mg tablet (Senna 8.6 mg PO BID #180 tabs 04/10/22 07/24/22 Rx Laxative) Lactobacillus acidophilus 100 100 mmu cells PO BID diarrhea #180 05/13/22 07/24/22 Rx million cell capsule caps folic acid 1 mg tablet 1 mg PO DAILY #90 tabs 05/13/22 07/24/22 Rx melatonin 5 mg capsule 5 mg PO HS #90 caps 05/13/22 07/24/22 Rx polyethylene glycol 3350 17 gram 17 g PO DAILY constipation #100 ea 05/13/22 07/24/22 Rx oral powder packet docusate sodium 100 mg capsule 200 mg PO TID constipation #540 06/05/22 07/24/22 Rx caps carbamazepine 100 mg chewable 200 mg PO TID #540 tabs 06/12/22 07/24/22 Rx tablet sucralfate 1 gram tablet 1 g PO AC #90 tabs 06/13/22 07/24/22 Rx pantoprazole 40 mg tablet,delayed 40 mg PO BID #180 tab-caps 07/03/22 07/24/22 Rx release amoxicillin 500 mg-potassium 1 tab PO BID #14 tabs 07/28/22 Rx clavulanate 125 mg tablet (Augmentin) amoxicillin 600 mg-potassium 5 ml PO BID #0 mL 07/28/22 Rx clavulanate 42.9 mg/5 mL oral suspension potassium chloride 20 mEq oral 20 meq PO BID #30 ea 07/28/22 Rx packet famotidine 20 mg tablet 20 mg PO BID #180 tabs 07/29/22 Rx Exam Narrative Exam Narrative: 111/61, 78, 38.2, 18, 93% RA. Contorted and contracted throughout. HEENT atraumatic, unable to examine oral cavity; no meningismus evident; lungs grossly clear, limited exam; heart RRR; abdomen soft and NT; no redness or scrotal swelling, no D/C per os; extremities w/o edema; skin no rash or lesions, slight erythema of cluneal cleft; neuro non-specific response to attempts to move, no verbal output Results Labs 08/03/22 21:37 08/03/22 22:05 Labs: Laboratory Results - last 24 hr 08/03/22 08/03/22 08/03/22 21:37 21:37 21:55 WBC 10.78 RBC 5.32 Hgb 12.7 L Hct 42.1 MCV 79 L MCH 23.9 L MCHC 30.2 L RDW 17.8 H Plt Count 393 MPV 9.7 Immature Gran % 0.4 Neutrophils % 80.5 Lymphocytes % 13.6 Monocytes % 4.8 Eosinophils % 0.4 Basophils % 0.3 Nucleated RBC % 0.0 Absolute Neutrophils 8.68 H Absolute Lymphocytes 1.47 Absolute Monocytes 0.52 Absolute Eosinophils 0.04 Absolute Basophils 0.03 Sodium Cancelled Potassium Cancelled Chloride Cancelled Carbon Dioxide Cancelled Anion Gap Cancelled BUN Cancelled Creatinine Cancelled Est GFR (CKD-EPI 2020) Cancelled Glucose Cancelled Calcium Cancelled Total Bilirubin Cancelled AST Cancelled ALT Cancelled Alkaline Phosphatase Cancelled Total Protein Cancelled Albumin Cancelled Urine Color Yellow Urine Clarity Clear Urine pH 6.5 Ur Specific [place] 1.020 Urine Protein Negative Urine Ketones Negative Urine Blood Moderate H Urine Nitrite Negative Urine Bilirubin Negative Urine Urobilinogen 0.2 Ur Leukocyte Esterase Moderate H Urine RBC 5-10 H Urine WBC 5-10 Ur Epithelial Cells Rare Urine Crystals Negative Urine Bacteria Few Urine Casts 0-2 Hyaline Urine Mucus Negative Urine Other Rare Transitional Ur Culture Indicated? Yes Urine Glucose Negative 08/03/22 22:05 WBC RBC Hgb Hct MCV MCH MCHC RDW Plt Count MPV Immature Gran % Neutrophils % Lymphocytes % Monocytes % Eosinophils % Basophils % Nucleated RBC % Absolute Neutrophils Absolute Lymphocytes Absolute Monocytes Absolute Eosinophils Absolute Basophils Sodium 143 Potassium 4.0 Chloride 107 Carbon Dioxide 26.6 Anion Gap 9.4 BUN 9 Creatinine 0.8 Est GFR (CKD-EPI 2020) 115.45 Glucose 97 Calcium 9.5 Total Bilirubin 0.3 AST 23 ALT 29 Alkaline Phosphatase 92 Total Protein 8.0 Albumin 3.2 L Urine Color Urine Clarity Urine pH Ur Specific [place] Urine Protein Urine Ketones Urine Blood Urine Nitrite Urine Bilirubin Urine Urobilinogen Ur Leukocyte Esterase Urine RBC Urine WBC Ur Epithelial Cells Urine Crystals Urine Bacteria Urine Casts Urine Mucus Urine Other Ur Culture Indicated? Urine Glucose Last Vital Signs Temp 38.2 C H 08/03/22 21:03 Pulse 78 08/03/22 23:30 Resp 18 08/03/22 23:30 BP 111/61 08/03/22 23:30 Pulse Ox 93 08/03/22 23:30 Time Spent Time spent with Patient: 40-54 minutes Time was spent: preparing to see the patient(eg.review tests), obtaining and/or reviewing separately otained hiistory, ordering medications,tests, procedures, referring, communicating with other health healthcare management and indepentently interpreting results
[2022-08-04 01:18] LABS: COVID-19 PCR Negative (Negative); Influenza A PCR Negative (Negative); Influenza B PCR Negative (Negative); RSV PCR Negative (Negative)
[2022-08-04 01:27] LABS: Source Nasopharynx
[2022-08-04] MEDS: Normal Saline Flush 10 ML SYR IVP (01:31)
[2022-08-04] MEDS: Pantoprazole 40 MG VIAL IVP (01:31)
[2022-08-04] MEDS: Lactated Ringers 1,000 ML 80 ML IV (01:32)
[2022-08-04] MEDS: levETIRAcetam 750 MG in Normal Saline 100 ML 400 MG IVPB ×2 (01:44→11:59)
[2022-08-04 01:47] VITALS: BP 100/60; PULSE 69; RESP 18; TEMP 36.9; O2SAT 99
[2022-08-04 07:24] VITALS: BP 101/56; PULSE 76; RESP 18; TEMP 36.3; O2SAT 99
[2022-08-04 08:00] VITALS: O2SAT 95
--- NOTE | 2022-08-04 08:44 | INITIAL_ITS ---
Date of service: 08/04/22 Time of Service: 08:44 Care Management Initial Assmt Initial Assessment REASON FOR HOSPITALIZATION:: Fever and AMS PREVIOUS FUNCTIONAL STATUS/SOCIAL/FAMILY SUPPORTS:: Chilo lives in [place] with a home provider named Ashley Gibbs. He also has a guardian through the [employer] named Minnie Alford. Chilo requires total care for all ADL's including feeding and is wheelchair dependent. CURRENT FUNCTIONAL STATUS:: Chilo was lying in bed when CM met with him. He is non-verbal and was dozing, so CM did not disturb him as he had been a bit agitated earlier in the day. Chilo was admitted with fever and mental status change but is much improved today. The plan is to discharge him back to his caregiver's home. ADVANCE DIRECTIVES:: Minnie Alford Has patient been provided with info about the portal/API?: Yes Did the patient sign up for the portal?: Yes CODE STATUS:: DNR/DNI INSURANCE COVERAGE / FINANCIAL ISSUES:: Medicaid CURRENT HOME/COMMUNITY SERVICES/EQUIPMENT:: diesel instructor caregiver PRIMARY CARE PHYSICIAN:: Pascual Johnson POTENTIAL DISCHARGE NEEDS:: follow up with PCP and plan of care PATIENT/FAMILY EDUCATION NEEDS:: Review of discharge instructions, limitations, follow up plan, discuss Ask Me Three TRANSPORTATION:: via private vehicle with caregiver PLAN:: Joshua will likely be discharged home with a resumption of services when medically cleared. He will follow up with his PCP and plan of care as prescribed and transport with his caregiver. CM will follow and assess for discharge needs. PFSH All Active Problems Fever (Acute) AMS (altered mental status) (Acute) Pneumonia (Acute) Acute UTI (Acute) Sepsis (Acute) Aspiration pneumonia (Acute) Sepsis syndrome (Acute) Breakthrough seizure (Acute) With prolonged Postictal state, resolved. [facility] 06/02/22 Hypokalemia (Acute) [facility] 06/01/22. Acute hypernatremia (Acute) [facility] 06/02/22 Gallbladder sludge (Acute) Goals of care, counseling/discussion (Acute) Palliative care patient (Acute) POLST (Physician Orders for Life-Sustaining Treatment) (Acute) DNI (do not intubate) (Acute) DNR (do not resuscitate) (Acute) Weight loss (Acute) Anxiety in acute stress reaction (Acute) Dental caries extending into dentin (Acute) Anemia (Chronic) Right nephrolithiasis (Chronic) Seizure (Acute) Status post ventriculoperitoneal shunt (Chronic) Vitamin D deficiency (Chronic) Focal epilepsy with impairment of consciousness, intractable (Chronic) Mental retardation (Chronic) non verbal incontinent bladder and bowel Idiopathic scoliosis (Chronic) Hydrocephalus (Chronic 04/30/14) 2014 [employer] shunt malfunction and new shunt inserted at [facility] Apr 2014 Bowel and bladder incontinence (Chronic 01/28/14) 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 femoral resections H/O nephrostomy History of lung surgery unknown; large scar on chest History of surgical procedure S/P ureteral stent placement (~06/28/18) 06/28/18 [facility]; LEFT-kb SHUNT [employer] SHUNT; revision in 2014 Status post laser lithotripsy of ureteral calculus Family History Mother , AGE 40 Cancer Father No problems noted. Sister Cancer Maternal Grandfather , AGE 73 Cancer Maternal Grandmother , AGE 77 Cancer Brother , MVA AGE 10 No problems noted. Social History Smoking/Tobacco Use Status: Never Smoking risk assessment performed?: Yes Alcohol Intake: never Drug use: Never Substance use type: does not use Caregiver/Support person: Yes Household members: caregiver Housing: house Number of Children: 0 Pets and animals: Yes Pets and animals: dog(s) Sexually active: No What is your relationship status?: never How often do you talk on the phone with friends or family?: never How often do you get together with friends or relatives?: decline to answer How often do you attend jewish or yazidism services?: decline to answer Do you belong to any clubs or organized social groups?: decline to answer Panel score (0-1 are the most socially isolated patients): 0 What type of physical activity do you participate in: other Details: bouncing Duration: < 15 minutes/day Latonya/Baptism: None Special latonya needs: No Seatbelt use: always Drive intox or ride w/intox stage driver: No Do you feel safe at home: Yes Do you feel safe in your relationship?: Yes
[2022-08-04 08:58] LABS: Procalcitonin < 0.1 ng/mL
--- NOTE | 2022-08-04 09:44 | W.PM.PROGNOT ---
Date of Service Date of service: 08/04/22 Time of Service: 09:44 Assessment and Plan Assessment and plan (1) Fever: Status: Acute Assessment and plan: Fever and somnolence, source not evident. By history the pneumonia has seemed to be resolving, though a new aspiration event would be possible. Low grade pyuria noted, but has had this in past with negative cultures, and has been on antibiotics. C diff to be considered with recent antibiotics and report of loose stool but no CT findings. probably infectious, but may be viral. Labs pending, check C diff, check viral swab for flu and COVID and hold on additional antibiotics for the present, will maintain IVF in meantime. For seizures will convert Keppra to IV. Tegretol not available IV so will have to hold. Also noted to be on Gabapentin and will also have to hold as not IV. Will change PPI to IV. For pneumonia has essentially completed course of therapy, will not resume. Plan for discharge to home Friday08/05/22 if he remains stable Remains DNR Subjective Subjective Patient reports: no new complaints Interval history since last seen: Non verbal - appears comfortable Exam Narrative Exam Narrative: 111/61, 78, 38.2, 18, 93% RA. Contorted and contracted throughout. HEENT atraumatic, unable to examine oral cavity; no meningismus evident; lungs grossly clear, limited exam; heart RRR; abdomen soft and NT; no redness or scrotal swelling, no D/C per os; extremities w/o edema; skin no rash or lesions, slight erythema of cluneal cleft; neuro non-specific response to attempts to move, no verbal output Const General: comfortable and frail appearing Nutritional Appearance: cachectic and underweight Orientation: alert, awake and other (non verbal, does not follow commands) HENMT Head: normal to inspection and atraumatic Neck Neck: normal visual inspection Resp Effort & Inspection: normal respiratory effort, no cough, no respiratory distress and not tachypneic Cardio Rate: regular rate Rhythm: regular rhythm GI Inspection: normal to inspection and scaphoid Palpation: soft, no guarding and nontender Neuro Speech: speech abnormal Extrem General: other (chronic contractures, spastic quadriplegia) Objective Last Vital Signs Temp 36.3 C L 08/04/22 07:24 Pulse 76 08/04/22 07:24 Resp 18 08/04/22 07:24 BP 101/56 L 08/04/22 07:24 Pulse Ox 99 08/04/22 07:24 Laboratory Results - last 24 hr 08/03/22 08/03/22 08/03/22 21:37 21:37 21:55 WBC 10.78 RBC 5.32 Hgb 12.7 L Hct 42.1 MCV 79 L MCH 23.9 L MCHC 30.2 L RDW 17.8 H Plt Count 393 MPV 9.7 Immature Gran % 0.4 Neutrophils % 80.5 Lymphocytes % 13.6 Monocytes % 4.8 Eosinophils % 0.4 Basophils % 0.3 Nucleated RBC % 0.0 Absolute Neutrophils 8.68 H Absolute Lymphocytes 1.47 Absolute Monocytes 0.52 Absolute Eosinophils 0.04 Absolute Basophils 0.03 Sodium Cancelled Potassium Cancelled Chloride Cancelled Carbon Dioxide Cancelled Anion Gap Cancelled BUN Cancelled Creatinine Cancelled Est GFR (CKD-EPI 2020) Cancelled Glucose Cancelled Calcium Cancelled Total Bilirubin Cancelled AST Cancelled ALT Cancelled Alkaline Phosphatase Cancelled Total Protein Cancelled Albumin Cancelled Procalcitonin Urine Color Yellow Urine Clarity Clear Urine pH 6.5 Ur Specific [place] 1.020 Urine Protein Negative Urine Ketones Negative Urine Blood Moderate H Urine Nitrite Negative Urine Bilirubin Negative Urine Urobilinogen 0.2 Ur Leukocyte Esterase Moderate H Urine RBC 5-10 H Urine WBC 5-10 Ur Epithelial Cells Rare Urine Crystals Negative Urine Bacteria Few Urine Casts 0-2 Hyaline Urine Mucus Negative Urine Other Rare Transitional Ur Culture Indicated? Yes Urine Glucose Negative COVID-19 Source SARS-CoV-2 (PCR) Influenza Type A (PCR) Influenza Type B (PCR) RSV (PCR) 08/03/22 08/04/22 08/04/22 22:05 00:37 08:18 WBC RBC Hgb Hct MCV MCH MCHC RDW Plt Count MPV Immature Gran % Neutrophils % Lymphocytes % Monocytes % Eosinophils % Basophils % Nucleated RBC % Absolute Neutrophils Absolute Lymphocytes Absolute Monocytes Absolute Eosinophils Absolute Basophils Sodium 143 Potassium 4.0 Chloride 107 Carbon Dioxide 26.6 Anion Gap 9.4 BUN 9 Creatinine 0.8 Est GFR (CKD-EPI 2020) 115.45 Glucose 97 Calcium 9.5 Total Bilirubin 0.3 AST 23 ALT 29 Alkaline Phosphatase 92 Total Protein 8.0 Albumin 3.2 L Procalcitonin < 0.1 Urine Color Urine Clarity Urine pH Ur Specific [place] Urine Protein Urine Ketones Urine Blood Urine Nitrite Urine Bilirubin Urine Urobilinogen Ur Leukocyte Esterase Urine RBC Urine WBC Ur Epithelial Cells Urine Crystals Urine Bacteria Urine Casts Urine Mucus Urine Other Ur Culture Indicated? Urine Glucose COVID-19 Source Nasopharynx SARS-CoV-2 (PCR) Negative Influenza Type A (PCR) Negative Influenza Type B (PCR) Negative RSV (PCR) Negative Time Spent with Patient Time Spent with Patient: 35-49 minutes Time was spent: preparing to see the patient(eg.review tests), ordering medications,tests, procedures, referring, communicating with other health palliative care specialist, indepentently interpreting results, counseling the patient and care coordination
[2022-08-04 10:54] LABS: Lab Add On Test DONE
--- NOTE | 2022-08-04 14:15 | W.PM.DS.N ---
Date of service: 08/04/22 Time of Service: 14:15 DS: Diagnosis Discharge Diagnosis (1) Fever: Status: Acute Asessment and Plan: Rectal temperature of 38.2 doesn't qualify as fever. Given no WBC elevation or source of infection plan made to d/c to home. He was recently admitted pm 07/25/22, discharged on 07/28/22 for pneumonia. He finished course of oral antibiotics and CXR shows improvement in pulmonary infiltrates. (2) Focal epilepsy with impairment of consciousness, intractable: Status: Chronic Asessment and Plan: Continue current home regime of seizure control medications. Discharge Plan Disposition Patient Disposition: Home Condition: Stable Discharge Details Reason For Visit: Fever AMS Admit Date/Time: 08/03/22 23:35 Admit Provider: Eran Hawk Attending Provider: Eran Hawk Primary Care Provider: Pascual Johnson Hospital Course Hospital Course: This is37 male with h/o cerebral palsy, spastic quadriplegia. Here last week with pneumonia, treated with Unasyn then home on Augmentin. Rehabilitation Physician reports he had been doing well until today when he had a seizure (not uncommon for him) but has since had low grade fever, somnolence and not taking any PO. In ER findings of a rectal temp of 38.2; white count 10; urinalysis with 5-10 WBC with few bacteria; CT head negative; CT chest showing improving pneumonia; CT abdomen w/o acute findings. Blood cultures obtained. Rehabilitation Physician notes single episode of loose stool both yesterday and today. No illness at home (was at respite yesterday, likewise no illness known). Is vaccinated against both COVID and flu. No cough, rash See Diagnosis Continue current home care and follow up with PCP in 1-2 weeks. Home Meds and New Rx's Prescriptions: Continued epinephrine 0.3 mg/0.3 mL auto-injector 0.3 mg IM ONCE Qty: 2 1RF Rx Instructions: PRN FOR ANAPHYLAXIS Pediatric Balanced Nutrition 0.03-1 gram-kcal/mL liquid 237 ml PO BID PRN (Reason: underweight) Qty: 7110 11RF Rx Instructions: PEDIASURE pantoprazole 40 mg tablet,delayed release (DR/EC) 40 mg PO BID Qty: 180 3RF Rx Instructions: 1 TAB BID gabapentin 800 mg tablet 800 mg PO TID Qty: 270 3RF levetiracetam 750 mg tablet 750 mg PO BID Qty: 180 3RF diazepam 5-7.5-10 mg kit 5 mg NC Q12H PRN (Reason: seizure activity) Qty: 3 5RF Rx Instructions: 5mg rectally every 12 hours as needed for seizure activity greater than 30 seconds simethicone [Gas-X Extra Strength] 125 mg capsule 125 mg PO AC carbamazepine 100 mg tablet,chewable 200 mg PO TID Qty: 540 3RF bisacodyl 10 mg suppository 10 mg NC DAILY PRN (Reason: constipation) Qty: 12 2RF nystatin 100,000 unit/gram cream 1 applic TP BID PRN (Reason: intertrigo) Qty: 30 5RF acetaminophen 650 mg suppository See Rx Instructions .ROUTE .COMPLEX Qty: 100 3RF Dose Instruction: USE 650MG RECTALLY THREE TIMES A DAY NEEDED Rx Instructions: USE 650MG RECTALLY THREE TIMES A DAY NEEDED sennosides [Senna Laxative] 8.6 mg tablet 8.6 mg PO BID Qty: 180 3RF Vitamin B-6 50 mg capsule 50 mg PO DAILY Qty: 90 3RF folic acid 1 mg tablet 1 mg PO DAILY Qty: 90 3RF polyethylene glycol 3350 17 gram powder in packet 17 g PO DAILY Qty: 100 3RF melatonin 5 mg capsule 5 mg PO HS Qty: 90 3RF Lactobacillus acidophilus 100 million cell capsule 100 mmu cells PO BID Qty: 180 3RF docusate sodium 100 mg capsule 200 mg PO TID Qty: 540 3RF sucralfate 1 gram tablet 1 g PO AC Qty: 90 11RF Rx Instructions: dose reduction 06/13/22 famotidine 20 mg tablet 20 mg PO BID Qty: 180 3RF Perla Protect(dimethicone-zinc) 142 GM cream 1 gm PRN PRN amoxicillin-pot clavulanate 600-42.9 mg/5 mL Suspension For Reconstitution 5 ml PO BID Qty: 0 0RF potassium chloride 20 mEq packet 20 meq PO BID Qty: 30 0RF amoxicillin-pot clavulanate [Augmentin] 500-125 mg tablet 1 tab PO BID Qty: 14 0RF Discharge Instructions Instructions: Fever in Adults (GEN) Stand Alone Forms: Nursing Discharge Form Referrals: Pascual Johnson MD [Primary Care Provider] - (Call Friday to make an Appointment in the next 2 weeks ) Activity:: Activity as Tolerated Equipment/Supplies:: No Equipment Needed Diet:: Resume usual home diet Discharge Orders Discharge Orders: Discharge Order (Routine); Ordered 08/04/22 Ordered By: Ramiro Escalona DS: Summary Time Spent with Patient providing and/or coordinating discharge services: Less than 30 minutes Status at Discharge Functional status at discharge: bed bound Overall status at discharge: patient is back to baseline Mental Status: other (baseline developmental delay with low cognition.) Speech and Movement: other (Nonverbal) Mood: other (baseline developmental delay with low cognition.) Affect: other Exam Narrative Exam Narrative: Contorted and contracted throughout. HEENT atraumatic, unable to examine oral cavity; no meningismus evident; lungs grossly clear, limited exam; heart RRR; abdomen soft and NT; no redness or scrotal swelling, no D/C per os; extremities w/o edema; skin no rash or lesions, slight erythema of cluneal cleft; neuro non-specific response to attempts to move, no verbal output Psych Mental Status: other (baseline developmental delay with low cognition.) Speech and Movement: other (Nonverbal) Mood: other (baseline developmental delay with low cognition.) Affect: other DS: Data Vitals/I&O Vitals and I&O: Vital Signs Temperature 36.3 C L 08/04/22 07:24 Temperature Source Tympanic 08/04/22 07:24 Pulse 76 08/04/22 07:24 Pulse Rhythm Regular 08/04/22 08:00 Respiratory Rate 18 08/04/22 07:24 Respiratory Effort Normal, Non-Labored 08/04/22 08:00 Respiratory Depth Normal 08/04/22 08:00 Respiratory Pattern Normal 08/04/22 08:00 Blood Pressure 101/56 L 08/04/22 07:24 Blood Pressure Position Supine 08/03/22 21:03 Pulse Oximetry 95 08/04/22 08:00 Oxygen Delivery Method Room Air 08/04/22 08:00 Oxygen Flow Rate 0 08/04/22 08:00 Intake & Output 08/03/22 08/04/22 08/04/22 23:59 11:59 23:59 Intake Total 1117.5 / 1225.0 107.5 / 1225.0 Balance 1117.5 / 1225.0 107.5 / 1225.0 Weight 28.032 kg 27.216 kg Intake: IV 1117.5 / 1225.0 107.5 / 1225.0 Other: Urine Color Yellow Urine Appearance Clear Urine Odor Normal Voiding Methods Diaper Data Completed and Pending Labs on day of discharge: Labs from last 24 hours 08/04/22 08/04/22 08/04/22 08:18 08:18 00:37 WBC RBC Hgb Hct MCV MCH MCHC RDW Plt Count MPV Immature Gran % Neutrophils % Lymphocytes % Monocytes % Eosinophils % Basophils % Nucleated RBC % Absolute Neutrophils Absolute Lymphocytes Absolute Monocytes Absolute Eosinophils Absolute Basophils Sodium Potassium Chloride Carbon Dioxide Anion Gap BUN Creatinine Est GFR (CKD-EPI 2020) Glucose Calcium Total Bilirubin AST ALT Alkaline Phosphatase Total Protein Albumin Procalcitonin < 0.1 Urine Color Urine Clarity Urine pH Ur Specific [place] Urine Protein Urine Ketones Urine Blood Urine Nitrite Urine Bilirubin Urine Urobilinogen Ur Leukocyte Esterase Urine RBC Urine WBC Ur Epithelial Cells Urine Crystals Urine Bacteria Urine Casts Urine Mucus Urine Other Ur Culture Indicated? Urine Glucose COVID-19 Source Nasopharynx SARS-CoV-2 (PCR) Negative Influenza Type A (PCR) Negative Influenza Type B (PCR) Negative RSV (PCR) Negative Add-On Test Request DONE 08/03/22 08/03/22 08/03/22 22:05 21:55 21:37 WBC 10.78 RBC 5.32 Hgb 12.7 L Hct 42.1 MCV 79 L MCH 23.9 L MCHC 30.2 L RDW 17.8 H Plt Count 393 MPV 9.7 Immature Gran % 0.4 Neutrophils % 80.5 Lymphocytes % 13.6 Monocytes % 4.8 Eosinophils % 0.4 Basophils % 0.3 Nucleated RBC % 0.0 Absolute Neutrophils 8.68 H Absolute Lymphocytes 1.47 Absolute Monocytes 0.52 Absolute Eosinophils 0.04 Absolute Basophils 0.03 Sodium 143 Potassium 4.0 Chloride 107 Carbon Dioxide 26.6 Anion Gap 9.4 BUN 9 Creatinine 0.8 Est GFR (CKD-EPI 2020) 115.45 Glucose 97 Calcium 9.5 Total Bilirubin 0.3 AST 23 ALT 29 Alkaline Phosphatase 92 Total Protein 8.0 Albumin 3.2 L Procalcitonin Urine Color Yellow Urine Clarity Clear Urine pH 6.5 Ur Specific [place] 1.020 Urine Protein Negative Urine Ketones Negative Urine Blood Moderate H Urine Nitrite Negative Urine Bilirubin Negative Urine Urobilinogen 0.2 Ur Leukocyte Esterase Moderate H Urine RBC 5-10 H Urine WBC 5-10 Ur Epithelial Cells Rare Urine Crystals Negative Urine Bacteria Few Urine Casts 0-2 Hyaline Urine Mucus Negative Urine Other Rare Transitional Ur Culture Indicated? Yes Urine Glucose Negative COVID-19 Source SARS-CoV-2 (PCR) Influenza Type A (PCR) Influenza Type B (PCR) RSV (PCR) Add-On Test Request 08/03/22 21:37 WBC RBC Hgb Hct MCV MCH MCHC RDW Plt Count MPV Immature Gran % Neutrophils % Lymphocytes % Monocytes % Eosinophils % Basophils % Nucleated RBC % Absolute Neutrophils Absolute Lymphocytes Absolute Monocytes Absolute Eosinophils Absolute Basophils Sodium Cancelled Potassium Cancelled Chloride Cancelled Carbon Dioxide Cancelled Anion Gap Cancelled BUN Cancelled Creatinine Cancelled Est GFR (CKD-EPI 2020) Cancelled Glucose Cancelled Calcium Cancelled Total Bilirubin Cancelled AST Cancelled ALT Cancelled Alkaline Phosphatase Cancelled Total Protein Cancelled Albumin Cancelled Procalcitonin Urine Color Urine Clarity Urine pH Ur Specific [place] Urine Protein Urine Ketones Urine Blood Urine Nitrite Urine Bilirubin Urine Urobilinogen Ur Leukocyte Esterase Urine RBC Urine WBC Ur Epithelial Cells Urine Crystals Urine Bacteria Urine Casts Urine Mucus Urine Other Ur Culture Indicated? Urine Glucose COVID-19 Source SARS-CoV-2 (PCR) Influenza Type A (PCR) Influenza Type B (PCR) RSV (PCR) Add-On Test Request 08/03/22 21:55 Urine - Reflex from Urine Culture - Pending 08/03/22 22:05 Blood Blood Culture - Pending 08/03/22 21:40 Blood Blood Culture - Pending Preliminary micro results at discharge 08/03/22 21:55 Urine Culture - Pending Urine - Reflex from Ua 08/03/22 22:05 Blood Culture - Pending Blood 08/03/22 21:40 Blood Culture - Pending Blood [facility] Active Problems Fever (Acute) AMS (altered mental status) (Acute) Pneumonia (Acute) Acute UTI (Acute) Sepsis (Acute) Aspiration pneumonia (Acute) Sepsis syndrome (Acute) Breakthrough seizure (Acute) With prolonged Postictal state, resolved. [facility] 06/02/22 Hypokalemia (Acute) [facility] 06/01/22. Acute hypernatremia (Acute) [facility] 06/02/22 Gallbladder sludge (Acute) Goals of care, counseling/discussion (Acute) Palliative care patient (Acute) POLST (Physician Orders for Life-Sustaining Treatment) (Acute) DNI (do not intubate) (Acute) DNR (do not resuscitate) (Acute) Weight loss (Acute) Anxiety in acute stress reaction (Acute) Dental caries extending into dentin (Acute) Anemia (Chronic) Right nephrolithiasis (Chronic) Seizure (Acute) Status post ventriculoperitoneal shunt (Chronic) Vitamin D deficiency (Chronic) Focal epilepsy with impairment of consciousness, intractable (Chronic) Mental retardation (Chronic) non verbal incontinent bladder and bowel Idiopathic scoliosis (Chronic) Hydrocephalus (Chronic 04/30/14) 2014 BATTERY LOADER shunt malfunction and new shunt inserted at [facility] Apr 2014 Bowel and bladder incontinence (Chronic 01/28/14) 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 femoral resections H/O nephrostomy History of lung surgery unknown; large scar on chest History of surgical procedure S/P ureteral stent placement (~06/28/18) 06/28/18 [facility]; LEFT-kb SHUNT BATTERY LOADER SHUNT; revision in 2014 Status post laser lithotripsy of ureteral calculus Family History Mother , AGE 40 Cancer Father No problems noted. Sister Cancer Maternal Grandfather , AGE 73 Cancer Maternal Grandmother , AGE 77 Cancer Brother , MVA AGE 10 No problems noted. Social History Smoking/Tobacco Use Status: Never Smoking risk assessment performed?: Yes Alcohol Intake: never Drug use: Never Substance use type: does not use Caregiver/Support person: Yes Household members: caregiver Housing: house Number of Children: 0 Pets and animals: Yes Pets and animals: dog(s) Sexually active: No What is your relationship status?: never How often do you talk on the phone with friends or family?: never How often do you get together with friends or relatives?: decline to answer How often do you attend buddhist or shinto services?: decline to answer Do you belong to any clubs or organized social groups?: decline to answer Panel score (0-1 are the most socially isolated patients): 0 What type of physical activity do you participate in: other Details: bouncing Duration: < 15 minutes/day Latonya/Shinto: None Special latonya needs: No Seatbelt use: always Drive intox or ride w/intox commercial driver's license driver: No Do you feel safe at home: Yes Do you feel safe in your relationship?: Yes Time Spent with Patient Time Spent with Patient: <45 minutes Time was spent: preparing to see the patient(eg.review tests), obtaining and/or reviewing separately otained hiistory, ordering medications,tests, procedures, referring, communicating with other health day care home provider, indepentently interpreting results and care coordination
[2022-08-04 15:52] VITALS: BP 102/61; PULSE 65; RESP 19; TEMP 37.4; O2SAT 99
[2022-08-04] MEDS: ACETAMINOPHEN 1,000 MG/100 ML BTL 400 MG IVPB (16:42)
== END 2022-08-04 17:16 | disposition home or self-care (01) | DRG 80 ==
LOC: ER 23:43 → MS 08-04 01:07
PROVIDERS: Family Medicine; Admitting Provider General Practice; Emergency Provider Emergency Medicine; PCP Family Medicine; Visit Provider General Practice
DX: R40.0 Somnolence (principal); G80.0 Spastic quadriplegic cerebral palsy; G40.109 Localization-related (focal) (partial) symptomatic epilepsy and epileptic syndromes with simple partial seizures, not intractable, without status epilepticus; G40.119 Localization-related (focal) (partial) symptomatic epilepsy and epileptic syndromes with simple partial seizures, intractable, without status epilepticus; Z68.1 Body mass index [BMI] 19.9 or less, adult; G91.9 Hydrocephalus, unspecified; R50.9 Fever, unspecified; Z66 Do not resuscitate; R63.4 Abnormal weight loss; M41.20 Other idiopathic scoliosis, site unspecified; E55.9 Vitamin D deficiency, unspecified; Z98.2 Presence of cerebrospinal fluid drainage device; R15.9 Full incontinence of feces; R32 Unspecified urinary incontinence; H54.3 Unqualified visual loss, both eyes; F79 Unspecified intellectual disabilities; D63.8 Anemia in other chronic diseases classified elsewhere; K21.9 Gastro-esophageal reflux disease without esophagitis; N20.0 Calculus of kidney; K22.70 Barrett's esophagus without dysplasia; R82.81 Pyuria
CPT/HCPCS: 36415; 74177; 80053; 84145; 87040; 87637; 99285; 70450; 71260; 81003; 81015; 85025; 87086; 99222; J0131; J1953; J3490

== ENCOUNTER 2022-08-28 12:31 | Outpatient (CLI) | payer MEDICAID, SELFPAY ==
[2022-08-28 11:27] LABS: Potassium 3.3 mmol/L (3.5-5.1)
== END 2022-08-28 12:32 | disposition home or self-care (01) ==
LOC: LBO 12:31
PROVIDERS: PCP Family Medicine; Visit Provider Family Medicine
DX: I10 Essential (primary) hypertension (principal)
CPT/HCPCS: 36415; 84132

== ENCOUNTER → 2022-11-12 01:02 | Outpatient (CLI) | payer MEDICAID, SELFPAY ==
--- NOTE | 2022-11-12 07:00 | DI.US_ITS ---
Exam(s) US ABDOMEN EXAM: US ABDOMEN CLINICAL HISTORY: r/o hydronephrosis, gallbladder sludge, francisco kidney stones TECHNIQUE: Ultrasound abdomen performed using standard protocol. COMPARISON: US US ABDOMEN from 07/06/2021 US US ABDOMEN RENAL from 10/30/[address] CHEST/ABD/PEL W from 08/03/2022 FINDINGS: Patient had some difficulty holding his breath during the examination. ABDOMINAL AORTA AND IVC: Not visualized due to overlying bowel gas. PANCREAS: Normal where visualized. LIVER: Liver evaluation is compromised due to the patient's inability to hold their breath and overly ing bowel gas. Hepatopedal flow in the Portal Vein. The liver measures 11.8 cm long. GALLBLADDER:There is a gallstone present. No evidence of wall thickening. No pericholecystic fluid i dentified. BILIARY SYSTEM: Common bile duct measures < 7 mm. No intrahepatic biliary ductal dilation. GRACIA'S SIGN: Negative. KIDNEYS: Kidneys are symmetric in size. There are echogenic medullary pyramids suggesting nephrocalci nosis. This is consistent with the CT scan from 08/03/2022. No evidence of hydronephrosis. No renal m ass or cyst identified. SPLEEN: Not enlarged. ASCITES: None seen. IMPRESSION: 1. Examination is compromised due to the patient's inability to hold his breath and overlying bowel g as. 2. Cholelithiasis. No findings to suggest acute cholecystitis. No biliary ductal dilatation. 3. 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 No hy dronephrosis. DATA REPOSITORY:
--- NOTE | 2022-11-12 09:34 | DI.RAD_ITS ---
Exam(s) XR ABDOMEN FLAT PLATE EXAM: 2D digital imaging was performed. CLINICAL HISTORY: monitor known stones, francisco kidney stones, N20.0. COMPARISON: CT CT CHEST/ABD/PEL W from 08/03/2022 TECHNIQUE: Supine views of the abdomen was performed. Two images were obtained. FINDINGS: LUNG BASES: Clear. BOWEL GAS PATTERN: There is a large amount of stool in the colon particularly in the pelvis. FREE AIR: None. CALCIFICATIONS: There again seen calcifications bilaterally in the kidneys. They are appearance rais es a question of medullary nephrocalcinosis. OSSEOUS STRUCTURES: There is again seen a marked left convex thoracolumbar scrotal scoliosis. Chroni c deformity of the hips are seen with chronic subluxations. OTHER FINDINGS: There is a ventricular peritoneal shunt again seen. Surgical clip is seen in the rig ht upper quadrant. IMPRESSION: Stable nephrocalcinosis. DATA REPOSITORY: RADIATION DOSE DELIVERED:
== END ==
PROVIDERS: PCP Family Medicine; Visit Provider Urology
DX: N20.0 Calculus of kidney (principal); K82.8 Other specified diseases of gallbladder
CPT/HCPCS: 74018; 76700

== ENCOUNTER 2022-12-03 15:14 | Inpatient (IN) | payer MEDICAID, SELFPAY ==
[2022-12-03] VITALS (158 sets, daily range): BP systolic 92–130; BP diastolic 15–90; PULSE 63–150; RESP 8–32; TEMP 36.7; O2SAT 93–100
--- NOTE | 2022-12-03 15:31 | ED.GENADUL_ITS ---
Discharge Plan Disposition Patient Disposition: Admit to [facility] Discharge Details Clinical Impression: Acute bacterial conjunctivitis of right eye, Difficult intravenous access, Acute lactic acidosis, Breakthrough seizure, Thrombocytosis, Acute dehydration, Aspiration pneumonia of right lung, Black stool Primary Care Provider: Pascual Johnson ED Provider: [facility] Meds and New Rx's Prescriptions: No Action epinephrine 0.3 mg/0.3 mL auto-injector 0.3 mg IM ONCE Qty: 2 1RF Rx Instructions: PRN FOR ANAPHYLAXIS pantoprazole 40 mg tablet,delayed release (DR/EC) 40 mg PO BID Qty: 180 3RF Rx Instructions: 1 TAB BID gabapentin 800 mg tablet 800 mg PO TID Qty: 270 3RF levetiracetam 750 mg tablet 750 mg PO BID Qty: 180 3RF diazepam 5-7.5-10 mg kit 5 mg IA Q12H PRN (Reason: seizure activity) Qty: 3 5RF Rx Instructions: 5mg rectally every 12 hours as needed for seizure activity greater than 30 seconds simethicone [Gas-X Extra Strength] 125 mg capsule 125 mg PO AC carbamazepine 100 mg tablet,chewable 200 mg PO TID Qty: 540 3RF bisacodyl 10 mg suppository 10 mg IA DAILY PRN (Reason: constipation) Qty: 12 2RF nystatin 100,000 unit/gram cream 1 applic TP BID PRN (Reason: intertrigo) Qty: 30 5RF acetaminophen 650 mg suppository See Rx Instructions .ROUTE .COMPLEX Qty: 100 3RF Dose Instruction: USE 650MG RECTALLY THREE TIMES A DAY NEEDED Rx Instructions: USE 650MG RECTALLY THREE TIMES A DAY NEEDED sennosides [Senna Laxative] 8.6 mg tablet 8.6 mg PO BID Qty: 180 3RF Vitamin B-6 50 mg capsule 50 mg PO DAILY Qty: 90 3RF folic acid 1 mg tablet 1 mg PO DAILY Qty: 90 3RF polyethylene glycol 3350 17 gram powder in packet 17 g PO DAILY Qty: 100 3RF melatonin 5 mg capsule 5 mg PO HS Qty: 90 3RF Lactobacillus acidophilus 100 million cell capsule 100 mmu cells PO BID Qty: 180 3RF docusate sodium 100 mg capsule 200 mg PO TID Qty: 540 3RF sucralfate 1 gram tablet 1 g PO AC Qty: 90 11RF Rx Instructions: dose reduction 06/13/22 famotidine 20 mg tablet 20 mg PO BID Qty: 180 3RF potassium chloride 20 mEq packet 20 - 40 meq PO BID Qty: 180 3RF Rx Instructions: 40 meq AM 20 meq PM Pediatric Balanced Nutrition 0.03-1 gram-kcal/mL liquid 237 ml PO BID PRN (Reason: underweight) Qty: 7110 11RF Rx Instructions: PEDIASURE Perla Protect(dimethicone-zinc) 142 GM cream 1 gm PRN PRN Medical Decision Making This is a complex 37-year-old normothermic and not tachycardic with CP spastic quadriplegia and concern for sepsis and GI bleed. Chart review confirms patient is DNI DNR. Given that he has not had his antiseizure meds since yesterday we will treat with 1.5 g of levetiracetam. Given fevers will swab for COVID complete a chest x-ray and perform a straight cath urinalysis. Given reported fever at home will treat for sepsis with ceftriaxone vancomycin lactate and blood cultures. Will obtain rectal temperature. Given concern for GI bleed we will treat with pantoprazole and send type and screen. No pain out of proportion to suggest necrotizing soft tissue infection. No obvious signs of skin breakdown to suggest skin or soft tissue infection. Will obtain a chest x- ray to assess for infiltrate. Will reassess following labs and fluids. Anticipate patient will require hospitalization. We will also obtain CT head and shunt series given vomiting. Given concern for fever several days ago consideration of possibility of a lumbar puncture. Will complete evaluation with chest x-ray urinalysis prior to considering lumbar puncture as I do not feel that lying patient on his side for lumbar puncture would be ideal at this point time given his nausea with ongoing active emesis. No focal neurological deficits to suggest CVA and given concern for GI bleed I do not feel the patient is a tPA candidate. No ongoing tonic-clonic activity to suggest benefit from EEG. Right hip reportedly dislocated at baseline. In the absence of any recent trauma no indication for right hip plain films. We will treat right-sided bacterial conjunctivitis with erythromycin ointment. Given cough and emesis aspiration pneumonia is certainly likely. 5:25 PM Difficult IV access on this patient. Nancy from the ICU came after multiple attempts at bedside via ultrasound guidance. She was able to obtain lab work. Fortunately she lost the line in the process but will attempt to find apoint of IV access. We will insert Correa catheter. 7PM On rectal temperature patient had a temp of 99.5 ?F. Patient now has IV access in his left lower extremity just posterior to his medial malleolus on the left. Labs significant for leukocytosis no anemia. Thrombocytosis. Marked lactic acidosis though this was drawn off of a slow flow IV.No VALERI. Mild hypercalcemia. Negative respiratory viral panel. While we were trying to establish IV access patient generalized seizure with roving eye movements for which she received 1 mg of lorazepam. His levetiracetam currently infusing. I anticipate patient requiring ongoing IV access and given IV access difficulties in the emergency department I ordered a midline. 7:30 PM Repeat hemoglobin down from 14.9-11.4 following 500 cc of crystalloid which is approximately 20 cc/kg. We will repeat a hemoglobin at 10:15 PM 8:15 PM Improved lactic acidosis. On patient's abdominal film he had markedly distended loops of bowel and in the setting of his emesis some concern for SBO so we will obtain dry CT scan. Based on the patient's anemia may also ask tachycardia he is high risk for GI bleed given his elevated [place] bleeding score of four-point. On my review of his CT scan it does appear that he has a right lower lobe infiltrate most consistent with aspiration given emesis prehospital. His tachycardia is resolving. I have asked nursing to insert a Correa catheter. He has no signs of shunt malfunction on my interpretation of the CT scan. Will await formal results and reach out to hospitalist team with request for hospitalization. 8:[address] head read as showing no acute findings. CT cervical spine completed in lieu of shunt series given difficulty with obtaining lateral neck x-ray showed no acute findings. 9:[address] abdomen pelvis showing severe gastric distention but no signs of SBO. Will defer Correa at this point in time as I do not want to cause patient additional discomfort. Radiology read nonspecific groundglass opacifications of right lung. This is concerning for aspiration pneumonia for which patient received treatment with ceftriaxone. Cultures were drawn prior to antibiotics. We will reach out to the hospitalist with request for hospitalization. Patient has had a difficult time getting a Correa catheter in place. His heart rate is down tr ended to 96. I feel that his dehydration is improving. He has a condom catheter in place. Patient has made urine in the ED. He had a wet diaper and has been producing urine in his catheter. 10:[address] Whittaker from the hospitalist service who agreed graciously to accept the patient to the hospitalist service [facility]. I started the patient on 1.5 times maintenance, at 100 cc/h. 10:50 PM Repeat H&H showing persistent microcytic anemia with a hemoglobin of 10.0. This appears similar to the patient's baseline. He has had no black nor bloody stools in the ED. Current heart rate 83. HPI General Date/Time Provider Initiated Documentation: 12/03/22 15:26 . HPI Narrative: This is a 37-year-old male with a history of cerebral palsy seizure disorder and hydrocephalus with [employer] shunt along with spastic quadriplegia now in the emergency department with his home provider. Patient reportedly had a seizure 3 days ago in which he was reportedly apneic and turning blue. He was seen at [facility]. It seems that labs were drawn and a shunt series was taken. Patient was subsequently discharged. 2 days ago patient had a fever at home for which he received acetaminophen suppository. He has not had anything to eat for the past 4 days. He was returned to his home provider 2 days ago. He has been drinking lots of water but not had anything to eat since 4 days ago. He took his antiseizure medications both yesterday and 2 days ago but has not had any to day. He has had nothing to drink today. He had a home negative COVID test. His right eye is reportedly crusted and red. He has been gagging and choking on his emesis. He has a history of GI bleed and he has had some dark emesis this morning. He also had a dark bowel movement today. Patient's home care provider Ashley has not noticed any recent signs of thrush when he has been yawning. She confirms his CODE STATUS is DNI DNR. Patient has only had 1 wet diaper so far today. Today he has developed a cough. Care provider reports that he has not had a urinary tract infection in 3 years. Related Data Home Medications Medication Instructions Recorded Confirmed dimethicone-zinc oxide topical 1 gm PRN PRN 05/31/17 11/21/22 cream (Perla Protect (dimethicone-zinc oxide) topical cream) bisacodyl 10 mg rectal suppository 10 mg IA DAILY PRN constipation 11/24/18 11/21/22 #12 ea nystatin 100,000 unit/gram topical 1 applic topical BID PRN 06/04/19 11/21/22 cream intertrigo #30 grams simethicone 125 mg capsule (Gas-X 125 mg PO AC gas 11/01/20 11/21/22 Extra Strength) epinephrine 0.3 mg/0.3 mL 0.3 mg (0.3 mL) IM ONCE #2 pens 06/27/21 11/21/22 injection, auto-injector acetaminophen 650 mg rectal See Rx Instructions .Route 07/09/21 11/21/22 suppository .COMPLEX #100 ea gabapentin 800 mg tablet 800 mg PO TID #270 tabs 02/27/22 11/21/22 levetiracetam 750 mg tablet 750 mg PO BID #180 tabs 02/27/22 11/21/22 pyridoxine (vitamin B6) 50 mg 50 mg PO DAILY #90 caps 04/10/22 11/21/22 capsule (Vitamin B-6) sennosides 8.6 mg tablet (Senna 8.6 mg PO BID #180 tabs 04/10/22 11/21/22 Laxative) Lactobacillus acidophilus 100 100 mmu cells PO BID diarrhea #180 05/13/22 11/21/22 million cell capsule caps folic acid 1 mg tablet 1 mg PO DAILY #90 tabs 05/13/22 11/21/22 melatonin 5 mg capsule 5 mg PO HS #90 caps 05/13/22 11/21/22 polyethylene glycol 3350 17 gram 17 g PO DAILY constipation #100 ea 05/13/22 11/21/22 oral powder packet docusate sodium 100 mg capsule 200 mg PO TID constipation #540 06/05/22 11/21/22 caps carbamazepine 100 mg chewable 200 mg PO TID #540 tabs 06/12/22 11/21/22 tablet sucralfate 1 gram tablet 1 g PO AC #90 tabs 06/13/22 11/21/22 pantoprazole 40 mg tablet,delayed 40 mg PO BID #180 tab-caps 07/03/22 11/21/22 release famotidine 20 mg tablet 20 mg PO BID #180 tabs 08/25/22 11/21/22 diazepam 5 mg-7.5 mg-10 mg rectal 5 mg IA Q12H PRN seizure activity 08/28/22 11/21/22 kit #3 ea potassium chloride 20 mEq oral 20 - 40 meq PO BID #180 ea 08/28/22 11/21/22 packet pedi nutrition,iron,lact-free 0.03 237 ml PO BID PRN underweight 12/02/22 gram-1 kcal/mL oral liquid #7,110 mL Previous Rx's Medication Instructions Recorded bisacodyl 10 mg rectal suppository 10 mg IA DAILY PRN constipation 11/24/18 #12 ea nystatin 100,000 unit/gram topical 1 applic topical BID PRN 06/04/19 cream intertrigo #30 grams epinephrine 0.3 mg/0.3 mL 0.3 mg (0.3 mL) IM ONCE #2 pens 06/27/21 injection, auto-injector acetaminophen 650 mg rectal See Rx Instructions .Route 07/09/21 suppository .COMPLEX #100 ea gabapentin 800 mg tablet 800 mg PO TID #270 tabs 02/27/22 levetiracetam 750 mg tablet 750 mg PO BID #180 tabs 02/27/22 pyridoxine (vitamin B6) 50 mg 50 mg PO DAILY #90 caps 04/10/22 capsule (Vitamin B-6) sennosides 8.6 mg tablet (Senna 8.6 mg PO BID #180 tabs 04/10/22 Laxative) Lactobacillus acidophilus 100 100 mmu cells PO BID diarrhea #180 05/13/22 million cell capsule caps folic acid 1 mg tablet 1 mg PO DAILY #90 tabs 05/13/22 melatonin 5 mg capsule 5 mg PO HS #90 caps 05/13/22 polyethylene glycol 3350 17 gram 17 g PO DAILY constipation #100 ea 05/13/22 oral powder packet docusate sodium 100 mg capsule 200 mg PO TID constipation #540 06/05/22 caps carbamazepine 100 mg chewable 200 mg PO TID #540 tabs 06/12/22 tablet sucralfate 1 gram tablet 1 g PO AC #90 tabs 06/13/22 pantoprazole 40 mg tablet,delayed 40 mg PO BID #180 tab-caps 07/03/22 release famotidine 20 mg tablet 20 mg PO BID #180 tabs 08/25/22 diazepam 5 mg-7.5 mg-10 mg rectal 5 mg IA Q12H PRN seizure activity 08/28/22 kit #3 ea potassium chloride 20 mEq oral 20 - 40 meq PO BID #180 ea 08/28/22 packet pedi nutrition,iron,lact-free 0.03 237 ml PO BID PRN underweight 12/02/22 gram-1 kcal/mL oral liquid #7,110 mL Allergies Allergy/AdvReac Type Severity Reaction Status Date / Time latex Allergy Severe ANAPHYLAXIS Verified 12/03/22 15:30 venom-honey bee Allergy Unknown Verified 12/03/22 15:30 adhesive tape AdvReac Severe irritation, Verified 12/03/22 15:30 rash heparin AdvReac Severe GI BLEED Verified 12/03/22 15:30 NSAIDS (Non-Steroidal AdvReac Intermediate GI BLEED Verified 12/03/22 15:30 Anti-Inflamma ferrous sulfate AdvReac Verified 12/03/22 15:30 General Stated Complaint: Nausea/Vomit/Diar JUANJO: 2 PFSH All Active Problems (Updated 12/03/22 @ 21:32 by Guy Cai MD) Acute bacterial conjunctivitis of right eye (Acute) Difficult intravenous access (Acute) Acute lactic acidosis (Acute) Breakthrough seizure (Acute) Thrombocytosis (Acute) Acute dehydration (Acute) Aspiration pneumonia of right lung (Acute) Black stool (Acute) Bilateral kidney stones (Acute) Hip pain, right (Acute) Pneumonia (Acute) Acute UTI (Acute) Sepsis (Acute) Aspiration pneumonia (Acute) Sepsis syndrome (Acute) Breakthrough seizure (Acute) With prolonged Postictal state, resolved. [facility] 06/02/22 Hypokalemia (Acute) [facility] 06/01/22. Acute hypernatremia (Acute) [facility] 06/02/22 Gallbladder sludge (Acute) Goals of care, counseling/discussion (Acute) Palliative care patient (Acute) POLST (Physician Orders for Life-Sustaining Treatment) (Acute) DNI (do not intubate) (Acute) DNR (do not resuscitate) (Acute) Weight loss (Acute) Anxiety in acute stress reaction (Acute) Dental caries extending into dentin (Acute) Anemia (Chronic) Right nephrolithiasis (Chronic) Seizure (Acute) Status post ventriculoperitoneal shunt (Chronic) Vitamin D deficiency (Chronic) Focal epilepsy with impairment of consciousness, intractable (Chronic) Mental retardation (Chronic) non verbal incontinent bladder and bowel Idiopathic scoliosis (Chronic) Hydrocephalus (Chronic 04/30/14) 2014 [employer] shunt malfunction and [place] [facility] [place] Bowel and bladder incontinence (Chronic 01/28/14) 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 femoral resections H/O nephrostomy History of lung surgery unknown; large scar on chest History of surgical procedure S/P ureteral stent placement (~06/28/18) 06[place] [facility] LEFT-kb SHUNT [employer] SHUNT; revision in 2014 Status post laser lithotripsy of ureteral calculus Family History Mother , AGE 40 Cancer Father No problems noted. Sister Cancer Maternal Grandfather , AGE 73 Cancer Maternal Grandmother , AGE 77 Cancer Brother , MVA AGE 10 No problems noted. Social History Smoking/Tobacco Use Status: Never Smoking risk assessment performed?: Yes Alcohol Intake: never Drug use: Never Substance use type: does not use Caregiver/Support person: Yes Household members: caregiver Housing: house Number of Children: 0 Pets and animals: Yes Pets and animals: dog(s) Sexually active: No What is your relationship status?: never How often do you talk on the phone with friends or family?: never How often do you get together with friends or relatives?: decline to answer How often do you attend jainism or pentecostal services?: decline to answer Do you belong to any clubs or organized social groups?: decline to answer Panel score (0-1 are the most socially isolated patients): 0 What type of physical activity do you participate in: other Details: bouncing Duration: < 15 minutes/day Latonya/Restorationist: None Special latonya needs: No Seatbelt use: always Drive intox or ride w/intox recycler 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 Cachectic and underweight. Head: Microcephalic, atraumatic. Eye: Purulent discharge from right eye. Ear, nose, mouth, throat: Difficult to assess TMs. Unable to complete intraoral examination. No obvious thrush. Neck: Trachea midline. No nuchal rigidity. Cardiovascular: Well-perfused distal extremities. Regular rate and rhythm. Respiratory: Nonlabored respiration. Diminished breath sounds bilaterally. Gastrointestinal: Nondistended abdomen. Soft nontender. Musculoskeletal: Contorted and contracted throughout. Skin: Normal for age and race, grossly normal temperature and turgor. No acute rash. Diaper in place. No signs of sacral decubitus ulcer. Neurologic: Awake with spastic quadriplegia. GCS 8: E2, V1, M5. Appears at baseline per care provider. Course Vital Signs Vital signs: Vital Signs Pulse 63 12/03/22 15:22 Blood Pressure 115/84 12/03/22 15:22 Pulse Oximetry 94 12/03/22 15:22 Temperature Source Temporal Artery Scan 12/03/22 15:22 Pulse 63 12/03/22 15:22 Blood Pressure 115/84 12/03/22 15:22 Blood Pressure Position Sitting 12/03/22 15:22 Pulse Oximetry 94 12/03/22 15:22 Oxygen Delivery Method Room Air 12/03/22 15:22 Oxygen Flow Rate 0 12/03/22 15:22 Lab/Test Results Lab/Test Results: 12/03/22 15:28 Blood Blood Culture - Pending 12/03/22 15:28 Blood Blood Culture - Pending Critical Care Time Critical Care Time Critical Care Time: Yes Total Critical Care Time: 45 Attestation: Critical care time spent speaking with hospitalist obtaining IV access bedside supervision of care
--- NOTE | 2022-12-03 15:35 | DI.CT_ITS ---
Exam(s) CT HEAD CERVICAL SPINE WO EXAM: CT HEAD CERVICAL SPINE WO CLINICAL HISTORY: History of shunt vomiting. TECHNIQUE: Imaging Protocol: Axial computed tomography images with coronal and sagittal reformatted images were created and reviewed COMPARISON: CT CT HEAD WO from 08/03/2022 FINDINGS: Head CT Ventricles and Extra axial spaces: Not dilated. Stable appearance to prior. Hemorrhage: None. Cerebral parenchyma: Stable appearance of left-sided encephalomalacia. Shunt again noted entering fr om left parietal region. No evidence of hemorrhage or acute infarct. 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 Midline shift: None. Brainstem/Cerebellum: No change in appearance. Calvarium: Sided kylah holes noted. Stable appearance of clinic congenital deformity. Visualized Paranasal sinuses/Mastoids: Clear. Soft tissues: Calcification in the globus again noted. Cervical Spine CT BONES: Vertebral body heights are maintained. Alignment is normal. There is no evidence of acute frac ture. Mild degenerative disc changes and facet degenerative changes are seen . SOFT TISSUES: No paraspinal hematoma. The airway appears intact. No pneumothorax is seen at the lung apices. IMPRESSION: Head CT: Stable appearance ventricular shunt. No ventricular dilatation. Stable appearance of left- sided encephalomalacia. No acute abnormality. C-spine CT: Mild degenerative changes, no acute abnormality. RADIATION DOSE DELIVERED: 757.38mGy.cm Total DLP DATA REPOSITORY: All CT scans at this facility are submitted to the National Radiology Data Registry (NRDR) Dose Index Registry (DIR) with the [employer] (ACR). RADIATION OPTIMIZATION: All CT scans at this facility use at least one of these dose optimization te chniques: automated exposure control; mA and/or kV adjustment per patient size (includes targeted exa ms where dose is matched to clinical indication); or iterative reconstruction.
--- NOTE | 2022-12-03 17:06 | NUR.NOTE ---
Nursing Note: Unable to obtain any IV access so meds delayed at this time. Dr. Cai aware.
[2022-12-03 17:37] LABS: Abs Immature Grans 0.06 10^3/uL (0.0-0.06); Absolute Basophil Count 0.06 10^3/uL (0.0-0.2); Absolute Monocyte Count 0.76 10^3/uL (0.1-0.8); Basophils % 0.3; HCT 51.4 % (40.0-50.0); HGB 14.9 g/dL (13.5-17.5); Immature Grans % 0.3; MCH 21.1 pg (27.0-33.0); MCV 73 fL (80-95); MPV 9.9 fL (8.0-11.0); Monocytes % 3.8; Neutrophils % 91.6; RBC 7.07 10^6/uL (4.36-5.78); RDW 19.7 % (11.8-14.1); RDW-SD 45.6 fL
[2022-12-03 17:41] LABS: Absolute Neutrophil Count 18.23 10^3/uL (1.2-6.7)
[2022-12-03 17:53] LABS: Lactate 3.6 mmol/L (0.6-1.4)
[2022-12-03 18:00] LABS: Anisocytosis 1+; Diff Comment Diff Reviewed; Platelet Count 409 10^3/uL (130-400)
[2022-12-03 18:01] LABS: Hypochromasia 1+; Microcytosis 1+; Polychromasia Present
[2022-12-03 18:11] LABS: ALT 47 U/L (16-63); AST 32 U/L (15-37); Albumin 4.4 g/dL (3.4-5.0); Alkaline Phosphatase 120 U/L (46-116); Anion Gap 22.3 mmol/L (3-11); BUN 17 mg/dL (7-18); Bilirubin, Total 0.5 mg/dL (0.2-1.0); CO2 25.7 mmol/L (21.0-32.0); CREATININE 0.9 mg/dL (0.70-1.30); Calcium 11.2 mg/dL (8.5-10.1); Chloride 104 mmol/L (98-107); Estimated GFR 111.42 (mL/min/1.73m2); Glucose 121 mg/dL (74-106); Potassium 3.3 mmol/L (3.5-5.1); Sodium 152 mmol/L (136-145); Total Protein 9.8 g/dL (6.4-8.2)
[2022-12-03] MEDS: LORazepam 2 MG/ML VIAL 1 MG IM (18:18)
[2022-12-03 18:27] LABS: COVID-19 PCR Negative (Negative); Influenza A PCR Negative (Negative); Influenza B PCR Negative (Negative); RSV PCR Negative (Negative)
[2022-12-03] MEDS: Normal Saline 500 ML IV (18:39)
[2022-12-03] MEDS: Ondansetron 4 MG/2 ML VIAL 2 MG IVP (18:41)
[2022-12-03] MEDS: Pantoprazole 40 MG VIAL 80 MG IVP (18:42)
[2022-12-03 18:45] LABS: Source Nasopharynx
--- NOTE | 2022-12-03 18:48 | DI.CT_ITS ---
Exam(s) CT CHEST/ABD/PEL WO EXAM: CT CHEST/ABD/PEL WO CLINICAL HISTORY: Shortness of breath. TECHNIQUE: Imaging Protocol: Axial computed tomography images with coronal and sagittal reformatted images were created and reviewed CONTRAST MATERIAL: Intravenous: Omnipaque 350 Contrast volume:100 ml Oral: yes / no COMPARISON: CT CT CHEST/ABD/PEL W from 08/03/2022 FINDINGS: CHEST: Tracheobronchial tree: Patent where visualized. Pulmonary parenchyma: Evaluation mildly limited by respiratory motion. Increased densities seen in a nd posterior right upper and lower lobes. Lower lobe somewhat improved from prior. Right upper lobe relatively unchanged. Findings could indicate residual recurrence infiltrates. Left lung shows min imal densities. Mild underlying emphysematous changes. no consolidation or dominant measurable mass . Pleura: No effusion or pneumothorax. Lymph nodes: Within normal limits. Aorta: Thoracic portion non-dilated. Heart: Normal size. No pericardial effusion. Esophagus is distended with fluid and shows wall thickening. Bones: Scoliosis. No lytic or blastic lesions.No compression fractures. ABDOMEN and PELVIS: Liver: Normal density. No measurable mass. Gallbladder and biliary tract: Gallbladder not well seen. No biliary dilatation. Pancreas: Normal density, no abnormal calcifications or inflammatory process. Spleen: Normal. Kidneys: Normal size, contour and axis. Bilateral renal calculi. No ureteral calculi. No suspicious masses seen. Adrenal glands: No masses seen. Aorta: Abdominal portion non-dilated. Mild atherosclerotic changes. Lymph nodes: Within normal limits. Soft tissues: Unremarkable. Bladder: Unremarkable. Bowel: Esophagus and stomach distended with fluid. Stomach also contains air. No small bowel or col onic dilatation. No obstruction or bowel wall thickening. Peritoneal cavity: Shunt tubing. No ascites. No focal collection or mesenteric inflammatory respons e. Bones: Scoliosis. Severe chronic hip deformities. Reproductive organs: Within normal limits. IMPRESSION: Exam limited by motion. Severe gastric and esophageal dilatation. Esophageal wall thickening could indicate esophagitis. Right-sided mild pulmonary infiltrates. RADIATION DOSE DELIVERED: 433.05mGy.cm Total DLP DATA REPOSITORY: All CT scans at this facility are submitted to the National Radiology Data Registry (NRDR) Dose Index Registry (DIR) with the [employer] (ACR). RADIATION OPTIMIZATION: All CT scans at this facility use at least one of these dose optimization te chniques: automated exposure control; mA and/or kV adjustment per patient size (includes targeted exa ms where dose is matched to clinical indication); or iterative reconstruction.
[2022-12-03 18:52] LABS: Lipase 25 U/L (16-77); Magnesium 2.3 mg/dL (1.8-2.4)
[2022-12-03] MEDS: cefTRIAXone 2 GM/50 ML BAG IVPB (19:08)
[2022-12-03 19:20] LABS: HCT 39.2 % (40.0-50.0)
[2022-12-03 19:25] LABS: HGB 11.4 g/dL (13.5-17.5)
--- NOTE | 2022-12-03 19:30 | DI.RAD_ITS ---
Exam(s) XR ABDOMEN FLAT PLATE EXAM: 2D digital imaging was performed. CLINICAL HISTORY: Please evaluate shunt. COMPARISON: CR XR ABDOMEN FLAT PLATE from 11/12/2022 TECHNIQUE: Supine views of the abdomen performed. FINDINGS: The stomach is quite distended. Some gas seen in the colon. No significant stool visible. No small bowel dilatation. Shunt tubing again noted. Severe scoliosis. Severe by chronic bilateral hip def ormities. Multiple bilateral renal calculi again noted. IMPRESSION: Gastric distension. Chronic bony deformities. Numerous bilateral renal calculi. DATA REPOSITORY: RADIATION DOSE DELIVERED:
[2022-12-03] MEDS: Erythromycin Ophth Oint 3.5 GM TUBE OD (19:53)
[2022-12-03 19:54] LABS: Lactate 2.8 mmol/L (0.6-1.4)
[2022-12-03] MEDS: VANCOMYCIN 500 MG in Normal Saline 100 ML 100 MG IVPB (20:35)
--- NOTE | 2022-12-03 20:37 | DI.VRAD_ITS ---
PROCEDURE INFORMATION: Exam: CT Head Without Contrast Exam date and time: 12/03/2022 8:15 PM Age: 37 years old Clinical indication: Other: Vomiting/hx shunt; Prior surgery; Surgery date: 6+ months TECHNIQUE: Imaging protocol: Computed tomography of the head without contrast. Radiation optimization: All CT scans at this facility use at least one of these dose optimization techniques: automated exposure control; mA and/or kV adjustment per patient size (includes targeted exams where dose is matched to clinical indication); or iterative reconstruction. COMPARISON: CT HEAD WO 08/03/2022 10:43 PM FINDINGS: Left-sided craniotomies/kylah holes and catheters noted. Encephalomalacia and gliosis noted on the left and diffuse volume loss. No acute territorial infarction or intraparenchymal hemorrhage No hydrocephalus. Ventricular configuration and size is grossly stable Bilateral phthisis bulbi IMPRESSION: No acute findings Chronic findings on the left are grossly stable PROCEDURE INFORMATION: Exam: CT Cervical Spine Without Contrast Exam date and time: 12/03/2022 8:15 PM Age: 37 years old Clinical indication: Other: Vomiting/hx shunt; Prior surgery; Surgery date: 6+ months TECHNIQUE: Imaging protocol: Computed tomography of the cervical spine without contrast. Radiation optimization: All CT scans at this facility use at least one of these dose optimization techniques: automated exposure control; mA and/or kV adjustment per patient size (includes targeted exams where dose is matched to clinical indication); or iterative reconstruction. COMPARISON: CR XR SHUNT SERIES 07/04/2021 7:41 PM FINDINGS: Bones/joints: No acute fracture. Loss of cervical lordosis is presumably on a degenerative basis. No significant central canal stenosis No significant neural foraminal narrowing. Lungs: Lung apices are normal. Soft tissues: Unremarkable. IMPRESSION: No acute findings. Dictated and Authenticated by: Eduin Cooper MD. Ordering:NIGEL Tovar MD
--- NOTE | 2022-12-03 20:45 | DI.VRAD_ITS ---
PROCEDURE INFORMATION: Exam: XR Abdomen Exam date and time: 12/03/2022 8:04 PM Age: 37 years old Clinical indication: Vomiting; Prior surgery; Surgery date: 6+ months; Surgery type: Shunt TECHNIQUE: Imaging protocol: Radiologic exam of the abdomen. Views: Frontal supine view of the abdomen. 1 View. COMPARISON: CR XR ABDOMEN FLAT PLATE 11/12/2022 9:25 AM FINDINGS: Gastrointestinal tract: Severe gastric distention. Non-specific bowel distention. Shunt tubing on the right, grossly intact. Bones/joints: Severe levoscoliosis of the spine Severe chronic changes in the hips are grossly stable Calcifications in the paraspinal regions presumably in the kidneys. IMPRESSION: Severe gastric distention. Consider nasogastric intubation Dictated and Authenticated by: Eduin Cooper MD. Ordering:NIGEL Tovar MD
--- NOTE | 2022-12-03 21:11 | DI.VRAD_ITS ---
PROCEDURE INFORMATION: Exam: CT Chest Without Contrast; Diagnostic Exam date and time: 12/03/2022 8:23 PM Age: 37 years old Clinical indication: Vomiting; Other: Shunt; Prior surgery; Surgery date: 6+ months TECHNIQUE: Imaging protocol: Diagnostic computed tomography of the chest without contrast. Radiation optimization: All CT scans at this facility use at least one of these dose optimization techniques: automated exposure control; mA and/or kV adjustment per patient size (includes targeted exams where dose is matched to clinical indication); or iterative reconstruction. COMPARISON: CT CHEST/ABD/PEL W 08/03/2022 10:48 PM FINDINGS: Moderate to severe dilatation of the thoracic esophagus with fluid level within. Mural thickening noted Lungs: Minimal ground-glass opacities noted on the right. Mild emphysema No consolidation. No masses. Pleural spaces: Unremarkable. No pneumothorax. No pleural effusion. Heart: Unremarkable. No cardiomegaly. No pericardial effusion. Lymph nodes: Unremarkable. No enlarged lymph nodes. Vasculature: Unremarkable. No aortic aneurysm. Bones/joints: Unremarkable. No acute fracture. Soft tissues: Unremarkable. IMPRESSION: Minimal non-specific ground-glass opacities on the right of unclear etiology No focal consolidation or pneumothorax. Findings in keeping with diffuse esophagitis/gastroesophageal reflux/esophageal dysmotility PROCEDURE INFORMATION: Exam: CT Abdomen And Pelvis Without Contrast Exam date and time: 12/03/2022 8:23 PM Age: 37 years old Clinical indication: Vomiting; Other: Shunt; Prior surgery; Surgery date: 6+ months TECHNIQUE: Imaging protocol: Computed tomography of the abdomen and pelvis without contrast. Radiation optimization: All CT scans at this facility use at least one of these dose optimization techniques: automated exposure control; mA and/or kV adjustment per patient size (includes targeted exams where dose is matched to clinical indication); or iterative reconstruction. COMPARISON: CT CHEST/ABD/PEL W 08/03/2022 10:48 PM FINDINGS: Liver: Normal. No mass. Gallbladder and bile ducts: Gallbladder not clearly visualized. No ductal dilation. Pancreas: Normal. No ductal dilation. Spleen: Normal. No splenomegaly. Adrenal glands: Normal. No mass. Kidneys and ureters: Bilateral nephrolithiasis. No hydronephrosis. Stomach and bowel: Severe gastric distention No obstruction. No mucosal thickening. Appendix: No evidence of appendicitis. Intraperitoneal space: Shunt tubing on the right, grossly intact terminating in the left pelvis No free air. No significant fluid collection. Vasculature: Unremarkable. No abdominal aortic aneurysm. Lymph nodes: Unremarkable. No enlarged lymph nodes. Urinary bladder: Unremarkable as visualized. Reproductive: Unremarkable as visualized. Bones/joints: Severe chronic changes in the hips are grossly stable. Severe levoscoliosis of the lumbar spine noted No acute fracture. Soft tissues: Unremarkable. IMPRESSION: No solid organ injury Severe gastric distention. Consider nasogastric intubation as clinically indicated Bilateral nephrolithiasis without hydroureteronephrosis Chronic findings as noted Dictated and Authenticated by: Eduin Cooper MD. Ordering:NIGEL Tovar MD
[2022-12-03] MEDS: Normal Saline 1,000 ML 100 ML IV (22:30)
[2022-12-03 22:31] LABS: HCT 34.2 % (40.0-50.0)
--- NOTE | 2022-12-03 23:54 | HPE_ITS ---
Date of service: 12/03/22 Time of Service: 23:54 Assessment and Plan Assessment and plan (1) Sepsis: Status: Acute Assessment and plan: blood and urine cultures, broad spectrum antibiotics, given Rocephin and Vancomcyin in the ED. I will hold further vancomycin but treat w/ cefepime which should cover apsiraton pneumonia as well as urosepsis. continue iv fluids, monitor vitals but hemodynamically stable at the time he was signed out to me from Dr. Cai. He is DNR/DNI and therefore I have not admitted him to the ED. per Nancy, they have decided not to pursue repeat endoscopies and they have not wanted to agitate him w/ placment of internal morrison or an NG to decompress his stomach. As such, I see not utility to placing him in ICU. I think supportive care w/ broad specturm antibiotics, antiemetics, Tylenol, iv Keppra, iv fluids and continue his DNR/DNI status. I think that a palliative care consult to discuss goals of care i.e. whether he should even be hospitalized in the future and taking steps to keep him comforatable in the home, i.e. hospice care would be appropriate. (2) Aspiration pneumonia of right lung: Status: Acute Assessment and plan: as above (3) Acute UTI: Status: Acute Assessment and plan: as above (4) Acute lactic acidosis: Status: Acute Assessment and plan: iv fluids, treat infection, monitor repeat levels (5) Breakthrough seizure: Status: Acute Assessment and plan: iv keppra 1 gm iv q12h (6) Acute dehydration: Status: Acute Assessment and plan: hypotonic saline (7) Black stool: Status: Acute Assessment and plan: iv protonix (8) Acute hypernatremia: Status: Acute Assessment and plan: as above, monitor BMP (9) Anemia, chronic disease: Status: Chronic Assessment and plan: check iron studies, consider iron replacement, if precipitous drop in hemogram then discuss whether or not to transfuse him (10) Hypokalemia: Status: Acute Assessment and plan: replace parenteral (11) Acute bacterial conjunctivitis of right eye: Status: Acute Assessment and plan: opthalmic erythromycin History of Present Illness History of Present Illness Chief Complaint: hematemesis, seizure, poor oral intake Narrative: 89 yr old male w/ severe cerebral palsy, hydrocephalus s/p [employer] shunt, spastic quadriplegia, non-verbal (other than some vocalizations), Mckenzie's esophagitis, recurrent UGI bleeds, who has not been eating for last few days but reportedly was drinking fluids until today. He was seen for seizure 3 days ago and evaluated at [facility] where he had some labs and had a [employer] shunt evaluation. He was discharged home but since that time he has not been eating and now has not been drinking fluids for past day and quit taking his meds. Today he had hematemsis w/ maroon colored vomitus and also had some melena stools yesterday. While being evaluated in the ED he had a seizure and was given IM Ativan. ED personel had difficult time placing and IV and had to put on in his left ankle but eventually under [place] guidance and IV was placed in his left hand. Workup revealed him to have severe gastric distension on his KUB, but d/t his combativeness and unable to rationalize w/ him, an NG was not placed and likewise an internal morrison was not placed but external [place] catheter was applied. He was resuscitated w/ normal saline x 20 mL/kg or [address] demonstrated ground glass opacities in the right lung base consistent w/ aspiration pneumonia. Labs demonstrated elevate Na+ 152, elevated AG 22, HCO3 25, BUN 17 creatinine 0.9, K+3.3, calcium 11.2, glucose 121, UA SG 1.020, trace protein, ketones >160, trace LE, WBC 20-50, RBC 5-10, neg. nitrites, mod. bacteria. Blood lactate 3.6>2.8 (after iv fluids) and CBC w/ WBC 19,000 w/ left shift and Hb 14.9 gm that dropped to 11.4 and 10 gm after further iv fluids. Patient is DNR and according to one of his caregivers, he has had multiple prior EGD but he has difficult time recovering from anesthesia after procedures that they have elected to not purusue further EGD's. ED treatment consisted of protonix 80 mg IVP, Rocephin 2 gm, normal saline. Per his caregiver, Ashley, he is DNR/DNI (I did not speak to his caregiver but Dr. Cai did so and confirmed his code status, although I did speak w/ Nancy San, who is one of our ICU nurses and happened to be working in the ED and also is a former caregiver for Marc. Review of Systems Unobtainable due to mental status [facility] All Active Problems Acute bacterial conjunctivitis of right eye (Acute) Difficult intravenous access (Acute) Acute lactic acidosis (Acute) Breakthrough seizure (Acute) Thrombocytosis (Acute) Acute dehydration (Acute) Aspiration pneumonia of right lung (Acute) Black stool (Acute) Bilateral kidney stones (Acute) Hip pain, right (Acute) Pneumonia (Acute) Acute UTI (Acute) Sepsis (Acute) Aspiration pneumonia (Acute) Sepsis syndrome (Acute) Breakthrough seizure (Acute) With prolonged Postictal state, resolved. [facility] 06/02/22 Hypokalemia (Acute) [facility] 06/01/22. Acute hypernatremia (Acute) [facility] 06/02/22 Gallbladder sludge (Acute) Goals of care, counseling/discussion (Acute) Palliative care patient (Acute) POLST (Physician Orders for Life-Sustaining Treatment) (Acute) DNI (do not intubate) (Acute) DNR (do not resuscitate) (Acute) Weight loss (Acute) Anxiety in acute stress reaction (Acute) Dental caries extending into dentin (Acute) Anemia (Chronic) Right nephrolithiasis (Chronic) Seizure (Acute) Status post ventriculoperitoneal shunt (Chronic) Vitamin D deficiency (Chronic) Focal epilepsy with impairment of consciousness, intractable (Chronic) Mental retardation (Chronic) non verbal incontinent bladder and bowel Idiopathic scoliosis (Chronic) Hydrocephalus (Chronic 04/30/14) 2014 [employer] shunt malfunction and new [place] [facility] [place] [facility] [place] Bowel and bladder incontinence (Chronic 01/28/14) 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 femoral resections H/O nephrostomy History of lung surgery unknown; large scar on chest History of surgical procedure S/P ureteral stent placement (~06/28/18) 06/28/18 [facility] [facility] [place] LEFT-kb SHUNT [employer] SHUNT; revision in 2015 Status post laser lithotripsy of ureteral calculus Family History Mother , AGE 40 Cancer Father No problems noted. Sister Cancer Maternal Grandfather , AGE 73 Cancer Maternal Grandmother , AGE 77 Cancer Brother , MVA AGE 10 No problems noted. Social History Smoking/Tobacco Use Status: Never Smoking risk assessment performed?: Yes Alcohol Intake: never Drug use: Never Substance use type: does not use Caregiver/Support person: Yes Household members: caregiver Housing: house Number of Children: 0 Pets and animals: Yes Pets and animals: dog(s) Sexually active: No What is your relationship status?: never How often do you talk on the phone with friends or family?: never How often do you get together with friends or relatives?: decline to answer How often do you attend amish or lutheran services?: decline to answer Do you belong to any clubs or organized social groups?: decline to answer Panel score (0-1 are the most socially isolated patients): 0 What type of physical activity do you participate in: other Details: bouncing Duration: < 15 minutes/day Latonya/Church: None Special latonya needs: No Seatbelt use: always Drive intox or ride w/intox package delivery driver: No Do you feel safe at home: Yes Do you feel safe in your relationship?: Yes Meds Allergies and Home Medications Allergies Allergy/AdvReac Type Severity Reaction Status Date / Time latex Allergy Severe ANAPHYLAXIS Verified 12/03/22 15:30 venom-honey bee Allergy Unknown Verified 12/03/22 15:30 adhesive tape AdvReac Severe irritation, Verified 12/03/22 15:30 rash heparin AdvReac Severe GI BLEED Verified 12/03/22 15:30 NSAIDS (Non-Steroidal AdvReac Intermediate GI BLEED Verified 12/03/22 15:30 Anti-Inflamma ferrous sulfate AdvReac Verified 12/03/22 15:30 Home Medications Medication Instructions Recorded Confirmed Type dimethicone-zinc oxide topical 1 gm topical PRN PRN 05/31/17 12/03/22 History cream (Perla Protect (dimethicone-zinc oxide) topical cream) bisacodyl 10 mg rectal suppository 10 mg ME DAILY PRN constipation 11/24/18 12/03/22 Rx #12 ea nystatin 100,000 unit/gram topical 1 applic topical BID PRN 06/04/19 12/03/22 Rx cream intertrigo #30 grams simethicone 125 mg capsule (Gas-X 125 mg PO AC gas 11/01/20 12/03/22 History Extra Strength) epinephrine 0.3 mg/0.3 mL 0.3 mg (0.3 mL) IM ONCE #2 pens 06/27/21 12/03/22 Rx injection, auto-injector acetaminophen 650 mg rectal See Rx Instructions .Route 07/09/21 12/03/22 Rx suppository .COMPLEX #100 ea gabapentin 800 mg tablet 800 mg PO TID #270 tabs 02/27/22 12/03/22 Rx levetiracetam 750 mg tablet 750 mg PO BID #180 tabs 02/27/22 12/03/22 Rx pyridoxine (vitamin B6) 50 mg 50 mg PO DAILY #90 caps 04/10/22 12/03/22 Rx capsule (Vitamin B-6) sennosides 8.6 mg tablet (Senna 8.6 mg PO BID #180 tabs 04/10/22 12/03/22 Rx Laxative) Lactobacillus acidophilus 100 100 mmu cells PO BID diarrhea #180 05/13/2212/03 Rx million cell capsule caps folic acid 1 mg tablet 1 mg PO DAILY #90 tabs 05/13/22 12/03/22 Rx melatonin 5 mg capsule 5 mg PO HS #90 caps 05/13/22 12/03/22 Rx polyethylene glycol 3350 17 gram 17 g PO DAILY constipation #100 ea 05/13/22 12/03/22 Rx oral powder packet docusate sodium 100 mg capsule 200 mg PO TID constipation #540 06/05/22 12/03/22 Rx caps carbamazepine 100 mg chewable 200 mg PO TID #540 tabs 06/12/22 12/03/22 Rx tablet sucralfate 1 gram tablet 1 g PO AC #90 tabs 06/13/22 12/03/22 Rx pantoprazole 40 mg tablet,delayed 40 mg PO BID #180 tab-caps 07/03/22 12/03/22 Rx release famotidine 20 mg tablet 20 mg PO BID #180 tabs 08/25/22 12/03/22 Rx diazepam 5 mg-7.5 mg-10 mg rectal 5 mg ME Q12H PRN seizure activity 08/28/22 12/03/22 Rx kit #3 ea potassium chloride 20 mEq oral 20 - 40 meq PO BID #180 ea 08/28/22 12/03/22 Rx packet pedi nutrition,iron,lact-free 0.03 237 ml PO BID PRN underweight 12/02/22 12/03/22 Rx gram-1 kcal/mL oral liquid #7,110 mL Exam Narrative Exam Narrative: Diminutive stature w/ facial appearances consistent w/ developmental delay, i..e frontal bossing, prominent chin, deep set eyes, he has contracture deformities of his arms and legs and feet HEENT: dry mucous membranes, teeth fair repair, no exudate Neck: veins flat, no adenopathy Lungs: dimished breath sounds at bases but no rhonchi or wheezing Chest wall deformed by scoliosis Heart: regular Abdomen: distended, a few faint bowel sounds Extremities; muscle wasting and deformities of his feet, ankles, contractures of his arms as well as his legs; iv in left ankle and left forearm Neuro/psychological: he is nonverbal, moans and withdraws to tactile stimulation Results Labs 12/03/22 22:15 12/03/22 17:25 Labs: Laboratory Results - last 24 hr 12/03/22 12/03/22 12/03/22 17:25 17:25 17:25 WBC 19.90 H RBC 7.07 H Hgb 14.9 Hct 51.4 H MCV 73 L MCH 21.1 L MCHC 29.0 L RDW 19.7 H Plt Count 409 H MPV 9.9 Immature Gran % 0.3 Neutrophils % 91.6 Lymphocytes % 4.0 Monocytes % 3.8 Eosinophils % 0.0 Basophils % 0.3 Nucleated RBC % 0.0 Absolute Neutrophils 18.23 H Absolute Lymphocytes 0.80 L Absolute Monocytes 0.76 Absolute Eosinophils 0.00 Absolute Basophils 0.06 RBC Morphology See Below Polychromasia Present Hypochromasia 1+ Anisocytosis 1+ Microcytosis 1+ VBG Lactate Sodium Potassium Chloride Carbon Dioxide Anion Gap BUN Creatinine Est GFR (CKD-EPI 2020) Glucose Calcium Magnesium 2.3 Total Bilirubin AST ALT Alkaline Phosphatase Total Protein Albumin Lipase 25 COVID-19 Source SARS-CoV-2 (PCR) Influenza Type A (PCR) Influenza Type B (PCR) RSV (PCR) Patient ABO/Rh Cancelled Antibody Screen 12/03/22 12/03/22 12/03/22 17:25 17:30 17:47 WBC RBC Hgb Hct MCV MCH MCHC RDW Plt Count MPV Immature Gran % Neutrophils % Lymphocytes % Monocytes % Eosinophils % Basophils % Nucleated RBC % Absolute Neutrophils Absolute Lymphocytes Absolute Monocytes Absolute Eosinophils Absolute Basophils RBC Morphology Polychromasia Hypochromasia Anisocytosis Microcytosis VBG Lactate 3.6 H* Sodium 152 H Potassium 3.3 L Chloride 104 Carbon Dioxide 25.7 Anion Gap 22.3 H BUN 17 Creatinine 0.9 Est GFR (CKD-EPI 2020) 111.42 Glucose 121 H Calcium 11.2 H Magnesium Total Bilirubin 0.5 AST 32 ALT 47 Alkaline Phosphatase 120 H Total Protein 9.8 H Albumin 4.4 Lipase COVID-19 Source Nasopharynx SARS-CoV-2 (PCR) Negative Influenza Type A (PCR) Negative Influenza Type B (PCR) Negative RSV (PCR) Negative Patient ABO/Rh Antibody Screen 12/03/22 12/03/22 12/03/22 19:15 19:35 19:35 WBC RBC Hgb 11.4 L D Hct 39.2 L MCV MCH MCHC RDW Plt Count MPV Immature Gran % Neutrophils % Lymphocytes % Monocytes % Eosinophils % Basophils % Nucleated RBC % Absolute Neutrophils Absolute Lymphocytes Absolute Monocytes Absolute Eosinophils Absolute Basophils RBC Morphology Polychromasia Hypochromasia Anisocytosis Microcytosis VBG Lactate 2.8 H* Sodium Potassium Chloride Carbon Dioxide Anion Gap BUN Creatinine Est GFR (CKD-EPI 2020) Glucose Calcium Magnesium Total Bilirubin AST ALT Alkaline Phosphatase Total Protein Albumin Lipase COVID-19 Source SARS-CoV-2 (PCR) Influenza Type A (PCR) Influenza Type B (PCR) RSV (PCR) Patient ABO/Rh A Negative Antibody Screen NEGATIVE 12/03/22 22:15 WBC RBC Hgb 10.0 L Hct 34.2 L MCV MCH MCHC RDW Plt Count MPV Immature Gran % Neutrophils % Lymphocytes % Monocytes % Eosinophils % Basophils % Nucleated RBC % Absolute Neutrophils Absolute Lymphocytes Absolute Monocytes Absolute Eosinophils Absolute Basophils RBC Morphology Polychromasia Hypochromasia Anisocytosis Microcytosis VBG Lactate Sodium Potassium Chloride Carbon Dioxide Anion Gap BUN Creatinine Est GFR (CKD-EPI 2020) Glucose Calcium Magnesium Total Bilirubin AST ALT Alkaline Phosphatase Total Protein Albumin Lipase COVID-19 Source SARS-CoV-2 (PCR) Influenza Type A (PCR) Influenza Type B (PCR) RSV (PCR) Patient ABO/Rh Antibody Screen Last Vital Signs Pulse 88 12/03/22 23:00 Resp 19 12/03/22 23:16 BP 126/73 12/03/22 23:00 Pulse Ox 95 12/03/22 18:37 Time Spent Time spent with Patient: 55-74 minutes Time was spent: preparing to see the patient(eg.review tests), ordering medications,tests, procedures, referring, communicating with other health hemodialysis patient care specialist, indepentently interpreting results and care coordination
[2022-12-03 23:56] LABS: Bilirubin Negative (Negative); Blood Small (Negative); Clarity Sl Cloudy (Clear); Glucose Negative (Negative); Ketones >=160 mg/dL (Negative); Leukocyte Esterase Trace (Negative); Nitrite Negative (Negative); Urobilinogen 0.2 mg/dL (Up to 0.2); pH 5.5 (5-8)
[2022-12-04] VITALS (13 sets, daily range): BP systolic 108–120; BP diastolic 60–77; PULSE 61–106; RESP 1–20; TEMP 36.4–37.6; O2SAT 95–99
[2022-12-04 00:17] LABS: Bacteria Moderate HPF (Negative); C & S Indicated? Yes; Crystals Negative HPF (Negative); Epithelial Cells Rare HPF (Negative); Mucus Negative (Negative); Other Cells Few Yeast (Negative); WBC 20-50 HPF (0-5)
[2022-12-04] MEDS: Albuterol/Ipratropium 3 ML UPD VIAL UPD ×4 (00:28→17:31)
[2022-12-04] MEDS: SODIUM CHLORIDE 0.45% 1,000 ML 100 ML IV ×2 (00:51→10:45)
[2022-12-04] MEDS: ACETAMINOPHEN 1,000 MG/100 ML BTL 400 MG IVPB ×3 (01:56→18:52)
[2022-12-04] MEDS: POTASSIUM CHLORIDE 10 MEQ/100 ML BAG 100 MEQ IVPB ×3 (02:00→03:50)
[2022-12-04] MEDS: CEFEPIME 2 GM in Normal Saline 100 ML IVPB ×3 (02:16→22:57)
[2022-12-04] MEDS: Pantoprazole 40 MG VIAL IVP ×2 (06:33→18:55)
[2022-12-04] MEDS: levETIRAcetam 1,000 MG in Normal Saline 100 ML 400 MG IVPB ×2 (06:35→18:51)
[2022-12-04 06:37] LABS: Lactate 0.8 mmol/L (0.6-1.4)
[2022-12-04 06:40] LABS: Abs Immature Grans 0.06 10^3/uL (0.0-0.06); Absolute Basophil Count 0.04 10^3/uL (0.0-0.2); Absolute Monocyte Count 1.17 10^3/uL (0.1-0.8); Basophils % 0.3; HCT 34.1 % (40.0-50.0); Immature Grans % 0.4; Lymphocytes % 8.5; MCH 21.7 pg (27.0-33.0); MCHC 29.3 % (32.0-36.0); MCV 74 fL (80-95); Monocytes % 7.9; Neutrophils % 82.9; RDW 18.3 % (11.8-14.1); RDW-SD 46.9 fL; WBC 14.76 10^3/uL (4.4-10.8)
[2022-12-04 06:47] LABS: Absolute Lymphocyte Count 1.25 10^3/uL (1.2-3.4); Absolute Neutrophil Count 12.24 10^3/uL (1.2-6.7)
[2022-12-04 06:58] LABS: ALT 28 U/L (16-63); AST 21 U/L (15-37); Albumin 2.8 g/dL (3.4-5.0); Alkaline Phosphatase 77 U/L (46-116); Anion Gap 15.7 mmol/L (3-11); BUN 14 mg/dL (7-18); Bilirubin, Direct 0.1 mg/dL (0.0-0.2); Bilirubin, Total 0.3 mg/dL (0.2-1.0); CO2 17.3 mmol/L (21.0-32.0); CREATININE 0.6 mg/dL (0.70-1.30); Calcium 9.1 mg/dL (8.5-10.1); Chloride 115 mmol/L (98-107); Estimated GFR 125.93 (mL/min/1.73m2); Glucose 93 mg/dL (74-106); Magnesium 1.9 mg/dL (1.8-2.4); Potassium 4.1 mmol/L (3.5-5.1); Sodium 148 mmol/L (136-145); Total Protein 6.7 g/dL (6.4-8.2)
[2022-12-04 07:31] LABS: Diff Comment Diff Reviewed; Microcytosis 1+; Polychromasia Present
[2022-12-04 07:32] LABS: Hypochromasia 1+
[2022-12-04 07:34] LABS: Procalcitonin < 0.1 ng/mL
--- NOTE | 2022-12-04 08:00 | DI.RAD_ITS ---
Exam(s) XR ABDOMEN FLAT PLATE EXAM: 2D digital imaging was performed. CLINICAL HISTORY: ileus, gastric distension. COMPARISON: CT CT CHEST/ABD/PEL WO from 12/03/2022 TECHNIQUE: Supine views of the abdomen performed. FINDINGS: Improvement in gastric distension. Gas scattered seen in small and large bowel without abnormal dila tation. Lung bases over penetrated and not evaluated. Heart size normal. Shunt tubing noted. Meenu re scoliosis. Severe bilateral hip deformities. IMPRESSION: Improvement in gastric distension. DATA REPOSITORY: RADIATION DOSE DELIVERED:
[2022-12-04] MEDS: Erythromycin Ophth Oint 3.5 GM TUBE OD ×3 (09:18→21:20)
[2022-12-04] MEDS: Lactated Ringers 1,000 ML 60 ML IV (11:46)
--- NOTE | 2022-12-04 12:26 | PHACLINREV_ITS ---
Pharmacy Admission Review Admission Clinical Review Admission Pharmacy Review: (Updated 12/03/22 @ 21:32 by Guy Cai MD) Acute bacterial conjunctivitis of right eye (Acute) Difficult intravenous access (Acute) Acute lactic acidosis (Acute) Breakthrough seizure (Acute) Thrombocytosis (Acute) Acute dehydration (Acute) Aspiration pneumonia of right lung (Acute) Black stool (Acute) Acute UTI (Acute) Sepsis (Acute) Hypokalemia (Acute) Acute hypernatremia (Acute) latex Allergy (Severe, Verified 12/03/22 15:30) ANAPHYLAXIS venom-honey bee Allergy (Unknown, Verified 12/03/22 15:30) adhesive tape Adverse Reaction (Severe, Verified 12/03/22 15:30) irritation, rash heparin Adverse Reaction (Severe, Verified 12/03/22 15:30) GI BLEED NSAIDS (Non-Steroidal Anti-Inflamma Adverse Reaction (Intermediate, Verified 12/03/22 15:30) GI BLEED ferrous sulfate Adverse Reaction (Verified 12/03/22 15:30) Resuscitation Status DNR/DNI Height 4 ft 10 in Weight 24.1 kg Pharmacy Admission Review Renal Dosing Renal Dosing: BUN Cancelled 12/04/22 18:03 Creatinine Cancelled 12/04/22 18:03 Medications needing adjustments: Reviewed (eCrCl = 56 ml/min, cefepime appro priately dosed -- 2g q12h, ) Anticoagulation Anticoagulation: Hgb 10.0 g/dL (13.5-17.5) L 12/04/22 06:30 Hct 34.1 % (40.0-50.0) L 12/04/22 06:30 Plt Count 10^3/uL (130-400) 12/04/22 06:30 Creatinine Cancelled 12/04/22 18:03 DVT Prophylaxis: Reviewed (chemical dvt ppx not ordered -- evidence of GI bleed upon arrival in ED, anemic, will continue to reassess) Opiate Usage Evaluate Pain Scale/Pains Meds: N/A Relevant Labs Relevant Labs: Sodium Cancelled 12/04/22 18:03 Potassium Cancelled 12/04/22 18:03 Chloride Cancelled 12/04/22 18:03 Magnesium 1.9 mg/dL (1.8-2.4) 12/04/22 06:30 DM Control DM Control: N/A Cardiac Review BP, HR, EF%: Reviewed Home Meds Home Med List reviewed: Reviewed Relevent Home Meds Not ordered & why?: Not ordered: po laxatives, carbamazepine, gabapentin -- Currently NPO, IV keppra ordered at slightly higher dose of 1000mg q12h Current Meds Current Medication Order Review: Reviewed Comments: Currently getting cefepime for aspiration pneumonia coverage, IV protonix q12h for GI bleed Pharmacy Antibiotic Review Relevant Labs: Relevant Labs 12/04/22 06:30 Procalcitonin < 0.1
--- NOTE | 2022-12-04 14:14 | PDOC.CMIN ---
Care Management Initial Assmt Initial Assessment REASON FOR HOSPITALIZATION:: Aspiration pneumonia, GI Bleed, Lactic acidosis PREVIOUS FUNCTIONAL STATUS/SOCIAL/FAMILY SUPPORTS:: Gio is nonverbal and lives in [place] with his home provider/primary caregiver Ashley Sai. His court appointed guardian is Minnie Alford. Chilo is wheelchair dependent and dependent for all of his ADL's including feeding. CURRENT FUNCTIONAL STATUS:: Gio was lying in bed sleeping when CM attempted to meet with him. Information for this assessment is provided by patients home provider Ashley. ADVANCE DIRECTIVES:: Minnie Alford-Legal Guardian Has patient been provided with info about the portal/API?: Yes Did the patient sign up for the portal?: Yes (Prior to admission) CODE STATUS:: DNR/DNI (COLST on file, completed 12/04/22) INSURANCE COVERAGE / FINANCIAL ISSUES:: Medicaid CURRENT HOME/COMMUNITY SERVICES/EQUIPMENT:: Wheelchair W/C van Track [employer]ift/[place] Services through [facility] PRIMARY CARE PHYSICIAN:: Dr. Johnson POTENTIAL DISCHARGE NEEDS:: discharge plan consistent with goals of care. PATIENT/FAMILY EDUCATION NEEDS:: Review discharge instructions, limitations, medications and plan to follow up with community providers. Discuss ask me three and ANTICIPATED BARRIERS TO DISCHARGE:: None identified TRANSPORTATION:: Via personal w/c van PLAN:: Gio is being closely monitored and treated with IV ABX and fluids. alf ABX course is undetermined at this time, cultures are pending. Palliative met with Gio and his Guardian today to discuss goals of care. Palliative follow up is planned for Friday. CM will continue to follow. [facility] All Active Problems Acute bacterial conjunctivitis of right eye (Acute) Difficult intravenous access (Acute) Acute lactic acidosis (Acute) Breakthrough seizure (Acute) Thrombocytosis (Acute) Acute dehydration (Acute) Aspiration pneumonia of right lung (Acute) Black stool (Acute) Bilateral kidney stones (Acute) Hip pain, right (Acute) Pneumonia (Acute) Acute UTI (Acute) Sepsis (Acute) Aspiration pneumonia (Acute) Sepsis syndrome (Acute) Breakthrough seizure (Acute) With prolonged Postictal state, resolved. [facility] 06/02/22 Hypokalemia (Acute) [facility] 06/01/22. Acute hypernatremia (Acute) [facility] 06/02/22 Gallbladder sludge (Acute) Goals of care, counseling/discussion (Acute) Palliative care patient (Acute) POLST (Physician Orders for Life-Sustaining Treatment) (Acute) DNI (do not intubate) (Acute) DNR (do not resuscitate) (Acute) Weight loss (Acute) Anxiety in acute stress reaction (Acute) Dental caries extending into dentin (Acute) Anemia (Chronic) Right nephrolithiasis (Chronic) Seizure (Acute) Status post ventriculoperitoneal shunt (Chronic) Vitamin D deficiency (Chronic) Focal epilepsy with impairment of consciousness, intractable (Chronic) Mental retardation (Chronic) non verbal incontinent bladder and bowel Idiopathic scoliosis (Chronic) Hydrocephalus (Chronic 04/30/14) 2014 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 femoral resections H/O nephrostomy History of lung surgery unknown; large scar on chest History of surgical procedure S/P ureteral stent placement (~06/28/18) 06/28/18 [facility]; LEFT-kb SHUNT BRAND SALES MANAGER SHUNT; revision in 2014 Status post laser lithotripsy of ureteral calculus Family History Mother , AGE 40 Cancer Father No problems noted. Sister Cancer Maternal Grandfather , AGE 73 Cancer Maternal Grandmother , AGE 77 Cancer Brother , MVA AGE 10 No problems noted. Social History Smoking/Tobacco Use Status: Never Smoking risk assessment performed?: Yes Alcohol Intake: never Drug use: Never Substance use type: does not use Caregiver/Support person: Yes Household members: caregiver Housing: house Number of Children: 0 Pets and animals: Yes Pets and animals: dog(s) Sexually active: No What is your relationship status?: never How often do you talk on the phone with friends or family?: never How often do you get together with friends or relatives?: decline to answer How often do you attend buddhist or spiritism services?: decline to answer Do you belong to any clubs or organized social groups?: decline to answer Panel score (0-1 are the most socially isolated patients): 0 What type of physical activity do you participate in: other Details: bouncing Duration: < 15 minutes/day Latonya/Gnosticist: None Special latonya needs: No Seatbelt use: always Drive intox or ride w/intox tier truck driver: No Do you feel safe at home: Yes Do you feel safe in your relationship?: Yes
--- NOTE | 2022-12-04 14:46 | CHAPLAIN ---
Joshua was sleeping when I visited. I spoke with his caregiver and offered support.
--- NOTE | 2022-12-04 16:55 | PCNE_ITS ---
Date of service: 12/04/22 Time of Service: 13:00 History of Present Illness Narrative: Mr. Ruiz is a 37 y/o M current inpt at [facility] 2/2 aspiration PNA and urosepsis; PMHx sig for cerebral palsy, epilepsy, GERD; present today caregiver Ashley, guardian Minnie available via telephone per Ashley/Minnie: Joseph lives in adult usp with Ashley for 3-1/2 years, there is respite available over the weekend. Over the weekend he had increased somnolence and rigidity, presented to [facility] on Friday found increased white blood count, discharged home, increased somnolence, cough increased thirst increased no appetite, representing to [facility] emergency room on December 03. -Is aware of aspiration being an ongoing issue, has always preferred to have thin liquids he does not but he do his own and they decided not to take this from him, aware of increased risk and have decided for his comfort this is okay. Conversations regarding life-sustaining treatments have been to focus on what is treatable and not invasive, otherwise make decisions as they present they are comfortable with continuing IV antibiotics at this time, they would not want invasive line like a midline or an intraosseous line placed, they are okay with peripheral IVs. If he were to pull his peripheral IV it is okay to replace it it is okay to continue giving him IV fluids. No feeding tube, including NG tube; no invasive procedures like EGD; - Pending his work-up and if things change with recommendation for 6-week IV antibiotics they may reconsider treatment options based on Guy's quality of life. - spent the summer having fun going to fairs, concerts and going to the beach. -He has had 4 hospitalizations in the last 6 months, related to pneumonia UTIs and seizures; potentially HC visits at [facility] which were not reviewed today - Joseph has not shown any signs of pain, he has been sleeping today, seems much more comfortable; and intact, last bowel movement last evening, continues to make clear urine he has a condom catheter CXR show aspiration pneumonia, abdominal imaging showed distention has improved since yesterday; he has not shown interest in having appetite, however does remain n.p.o. at this time Assessment and Plan Assessment and plan (1) Sepsis: Status: Acute Assessment and plan: Blood and urine cultures pending, continue IV antibiotics and fluids (2) Difficult intravenous access: Status: Acute (3) Acute dehydration: Status: Acute (4) Aspiration pneumonia: Status: Acute Assessment and plan: High aspiration risk however due to quality of life concerns consider advancing diet as tolerated once Joseph show signs of interest in food or drink (5) Hypokalemia: Status: Acute (6) Palliative care patient: Status: Acute Assessment and plan: Followed outpatient by Bessy BECERRA to follow-up this week to review plan of care (7) DNI (do not intubate): Status: Acute (8) DNR (do not resuscitate): Status: Acute (9) Weight loss: Status: Acute Assessment and plan: 13% of body weight since July 2022 (10) Seizure: Status: Acute (11) Cerebral palsy: Qualifiers: Cerebral palsy type: spastic quadriplegic Qualified Code(s): G80.0 - Spastic quadriplegic cerebral palsy (12) Encounter for hospice care discussion: Status: Acute Assessment and plan: Reviewed hospice eligibility at this time, difference in care would be to not present to emergency room for IV antibiotics if infection were to return. At this time they would like to hold hospice and reconsider as needed based on current cultures and plan of care (13) ACP (advance care planning): Status: Acute Assessment and plan: Reviewed and updated COLST form to include preference for no invasive procedures including EGD, midline, IO. Peripheral IVs are okay. Need for consult and guardian prior to making any decisions regarding invasive procedures. Reviewed hospice as above and current plan of care including decisions regarding ongoing IV antibiotics and fluid,, continue to treat with treatable with noninvasive means -Consider hospice referral at any time -To continue following with palliative, phone call follow-up in February previously scheduled -spent 33 mins w/ACP Review of Systems Narrative: as per HPI PFSH All Active Problems (Updated 12/04/22 @ 17:08 by Yue Ocampo NP) ACP (advance care planning) (Acute) Encounter for hospice care discussion (Acute) Acute bacterial conjunctivitis of right eye (Acute) Difficult intravenous access (Acute) Acute lactic acidosis (Acute) Breakthrough seizure (Acute) Thrombocytosis (Acute) Acute dehydration (Acute) Aspiration pneumonia of right lung (Acute) Black stool (Acute) Bilateral kidney stones (Acute) Hip pain, right (Acute) Pneumonia (Acute) Acute UTI (Acute) Sepsis (Acute) Aspiration pneumonia (Acute) Sepsis syndrome (Acute) Breakthrough seizure (Acute) With prolonged Postictal state, resolved. [facility] 06/02/22 Hypokalemia (Acute) [facility] 06/01/22. Acute hypernatremia (Acute) [facility] 06/02/22 Gallbladder sludge (Acute) Goals of care, counseling/discussion (Acute) Palliative care patient (Acute) POLST (Physician Orders for Life-Sustaining Treatment) (Acute) DNI (do not intubate) (Acute) DNR (do not resuscitate) (Acute) Weight loss (Acute) Anxiety in acute stress reaction (Acute) Dental caries extending into dentin (Acute) Anemia (Chronic) Right nephrolithiasis (Chronic) Seizure (Acute) Status post ventriculoperitoneal shunt (Chronic) Vitamin D deficiency (Chronic) Focal epilepsy with impairment of consciousness, intractable (Chronic) Mental retardation (Chronic) non verbal incontinent bladder and bowel Idiopathic scoliosis (Chronic) Hydrocephalus (Chronic 04/30/14) 2014 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, GERD Anemia, chronic disease (Chronic 09/18/16) Swallowing impaired (Chronic) Medical History Cerebral palsy Severe; 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 femoral resections H/O nephrostomy History of lung surgery unknown; large scar on chest History of surgical procedure S/P ureteral stent placement (~06/28/18) 06/28/18 [facility]; LEFT-kb SHUNT ELECTRONIC ORGAN TECHNICIAN SHUNT; revision in 2014 Status post laser lithotripsy of ureteral calculus Family History Mother , AGE 40 Cancer Father No problems noted. Sister Cancer Maternal Grandfather , AGE 73 Cancer Maternal Grandmother , AGE 77 Cancer Brother , MVA AGE 10 No problems noted. Social History Smoking/Tobacco Use Status: Never Smoking risk assessment performed?: Yes Alcohol Intake: never Drug use: Never Substance use type: does not use Caregiver/Support person: Yes Household members: caregiver Housing: house Number of Children: 0 Pets and animals: Yes Pets and animals: dog(s) Sexually active: No What is your relationship status?: never How often do you talk on the phone with friends or family?: never How often do you get together with friends or relatives?: decline to answer How often do you attend restorationism or anabaptism services?: decline to answer Do you belong to any clubs or organized social groups?: decline to answer Panel score (0-1 are the most socially isolated patients): 0 What type of physical activity do you participate in: other Details: bouncing Duration: < 15 minutes/day Latonya/Sabianism: None Special latonya needs: No Seatbelt use: always Drive intox or ride w/intox combine driver: No Do you feel safe at home: Yes Do you feel safe in your relationship?: Yes Exam Narrative Exam Narrative: General: chronically ill/frail appearing male; sleeping throughout visit w/no facial grimace or groan Ext: contracture of extremities; muscle wasting; IV in left ankle and left forearm Psych: non-verbal, non-responsive to light stimuli Results Last Vital Signs Temp 97.9 F 12/04/22 16:34 Pulse 62 12/04/22 16:34 Resp 16 12/04/22 16:34 BP 120/70 12/04/22 16:34 Pulse Ox 98 12/04/22 16:34 Labs 12/04/22 06:30 12/04/22 06:30 Labs: Laboratory Results - last 24 hr 12/03/22 12/03/22 12/03/22 17:25 17:25 17:25 WBC 19.90 H RBC 7.07 H Hgb 14.9 Hct 51.4 H MCV 73 L MCH 21.1 L MCHC 29.0 L RDW 19.7 H Plt Count 409 H MPV 9.9 Immature Gran % 0.3 Neutrophils % 91.6 Lymphocytes % 4.0 Monocytes % 3.8 Eosinophils % 0.0 Basophils % 0.3 Nucleated RBC % 0.0 Absolute Neutrophils 18.23 H Absolute Lymphocytes 0.80 L Absolute Monocytes 0.76 Absolute Eosinophils 0.00 Absolute Basophils 0.06 RBC Morphology See Below Polychromasia Present Hypochromasia 1+ Anisocytosis 1+ Microcytosis 1+ VBG Lactate Sodium Potassium Chloride Carbon Dioxide Anion Gap BUN Creatinine Est GFR (CKD-EPI 2020) Glucose Calcium Magnesium 2.3 Total Bilirubin Conjugated Bilirubin AST ALT Alkaline Phosphatase Total Protein Albumin Lipase 25 Procalcitonin Urine Color Urine Clarity Urine pH Ur Specific [place] Urine Protein Urine Ketones Urine Blood Urine Nitrite Urine Bilirubin Urine Urobilinogen Ur Leukocyte Esterase Urine RBC Urine WBC Ur Epithelial Cells Urine Crystals Urine Bacteria Urine Mucus Urine Other Ur Culture Indicated? Urine Glucose COVID-19 Source SARS-CoV-2 (PCR) Influenza Type A (PCR) Influenza Type B (PCR) RSV (PCR) Patient ABO/Rh Cancelled Antibody Screen 12/03/22 12/03/22 12/03/22 17:25 17:30 17:47 WBC RBC Hgb Hct MCV MCH MCHC RDW Plt Count MPV Immature Gran % Neutrophils % Lymphocytes % Monocytes % Eosinophils % Basophils % Nucleated RBC % Absolute Neutrophils Absolute Lymphocytes Absolute Monocytes Absolute Eosinophils Absolute Basophils RBC Morphology Polychromasia Hypochromasia Anisocytosis Microcytosis VBG Lactate 3.6 H* Sodium 152 H Potassium 3.3 L Chloride 104 Carbon Dioxide 25.7 Anion Gap 22.3 H BUN 17 Creatinine 0.9 Est GFR (CKD-EPI 2020) 111.42 Glucose 121 H Calcium 11.2 H Magnesium Total Bilirubin 0.5 Conjugated Bilirubin AST 32 ALT 47 Alkaline Phosphatase 120 H Total Protein 9.8 H Albumin 4.4 Lipase Procalcitonin Urine Color Urine Clarity Urine pH Ur Specific [place] Urine Protein Urine Ketones Urine Blood Urine Nitrite Urine Bilirubin Urine Urobilinogen Ur Leukocyte Esterase Urine RBC Urine WBC Ur Epithelial Cells Urine Crystals Urine Bacteria Urine Mucus Urine Other Ur Culture Indicated? Urine Glucose COVID-19 Source Nasopharynx SARS-CoV-2 (PCR) Negative Influenza Type A (PCR) Negative Influenza Type B (PCR) Negative RSV (PCR) Negative Patient ABO/Rh Antibody Screen 12/03/22 12/03/22 12/03/22 19:15 19:35 19:35 WBC RBC Hgb 11.4 L D Hct 39.2 L MCV MCH MCHC RDW Plt Count MPV Immature Gran % Neutrophils % Lymphocytes % Monocytes % Eosinophils % Basophils % Nucleated RBC % Absolute Neutrophils Absolute Lymphocytes Absolute Monocytes Absolute Eosinophils Absolute Basophils RBC Morphology Polychromasia Hypochromasia Anisocytosis Microcytosis VBG Lactate 2.8 H* Sodium Potassium Chloride Carbon Dioxide Anion Gap BUN Creatinine Est GFR (CKD-EPI 2020) Glucose Calcium Magnesium Total Bilirubin Conjugated Bilirubin AST ALT Alkaline Phosphatase Total Protein Albumin Lipase Procalcitonin Urine Color Urine Clarity Urine pH Ur Specific [place] Urine Protein Urine Ketones Urine Blood Urine Nitrite Urine Bilirubin Urine Urobilinogen Ur Leukocyte Esterase Urine RBC Urine WBC Ur Epithelial Cells Urine Crystals Urine Bacteria Urine Mucus Urine Other Ur Culture Indicated? Urine Glucose COVID-19 Source SARS-CoV-2 (PCR) Influenza Type A (PCR) Influenza Type B (PCR) RSV (PCR) Patient ABO/Rh A Negative Antibody Screen NEGATIVE 12/03/22 12/03/22 12/04/22 22:15 23:30 00:03 WBC RBC Hgb 10.0 L Hct 34.2 L MCV MCH MCHC RDW Plt Count MPV Immature Gran % Neutrophils % Lymphocytes % Monocytes % Eosinophils % Basophils % Nucleated RBC % Absolute Neutrophils Absolute Lymphocytes Absolute Monocytes Absolute Eosinophils Absolute Basophils RBC Morphology Polychromasia Hypochromasia Anisocytosis Microcytosis VBG Lactate Sodium Cancelled Potassium Cancelled Chloride Cancelled Carbon Dioxide Cancelled Anion Gap Cancelled BUN Cancelled Creatinine Cancelled Est GFR (CKD-EPI 2020) Cancelled Glucose Cancelled Calcium Cancelled Magnesium Total Bilirubin Conjugated Bilirubin AST ALT Alkaline Phosphatase Total Protein Albumin Lipase Procalcitonin Urine Color Yellow Urine Clarity Sl Cloudy Urine pH 5.5 Ur Specific [place] 1.020 Urine Protein Trace H Urine Ketones >=160 H Urine Blood Small H Urine Nitrite Negative Urine Bilirubin Negative Urine Urobilinogen 0.2 Ur Leukocyte Esterase Trace H Urine RBC 5-10 H Urine WBC 20-50 H Ur Epithelial Cells Rare Urine Crystals Negative Urine Bacteria Moderate Urine Mucus Negative Urine Other Few Yeast Ur Culture Indicated? Yes Urine Glucose Negative COVID-19 Source SARS-CoV-2 (PCR) Influenza Type A (PCR) Influenza Type B (PCR) RSV (PCR) Patient ABO/Rh Antibody Screen 12/04/22 12/04/22 12/04/22 05:35 05:35 06:03 WBC RBC Hgb Hct MCV MCH MCHC RDW Plt Count MPV Immature Gran % Neutrophils % Lymphocytes % Monocytes % Eosinophils % Basophils % Nucleated RBC % Absolute Neutrophils Absolute Lymphocytes Absolute Monocytes Absolute Eosinophils Absolute Basophils RBC Morphology Polychromasia Hypochromasia Anisocytosis Microcytosis VBG Lactate Sodium Cancelled Potassium Cancelled Chloride Cancelled Carbon Dioxide Cancelled Anion Gap Cancelled BUN Cancelled Creatinine Cancelled Est GFR (CKD-EPI 2020) Cancelled Glucose Cancelled Calcium Cancelled Magnesium Cancelled Total Bilirubin Cancelled Conjugated Bilirubin Cancelled AST Cancelled ALT Cancelled Alkaline Phosphatase Cancelled Total Protein Cancelled Albumin Cancelled Lipase Procalcitonin Urine Color Urine Clarity Urine pH Ur Specific [place] Urine Protein Urine Ketones Urine Blood Urine Nitrite Urine Bilirubin Urine Urobilinogen Ur Leukocyte Esterase Urine RBC Urine WBC Ur Epithelial Cells Urine Crystals Urine Bacteria Urine Mucus Urine Other Ur Culture Indicated? Urine Glucose COVID-19 Source SARS-CoV-2 (PCR) Influenza Type A (PCR) Influenza Type B (PCR) RSV (PCR) Patient ABO/Rh Antibody Screen 12/04/22 12/04/22 12/04/22 06:30 06:30 06:30 WBC 14.76 H RBC 4.60 Hgb 10.0 L Hct 34.1 L MCV 74 L MCH 21.7 L MCHC 29.3 L RDW 18.3 H Plt Count MPV Immature Gran % 0.4 Neutrophils % 82.9 Lymphocytes % 8.5 Monocytes % 7.9 Eosinophils % 0.0 Basophils % 0.3 Nucleated RBC % 0.0 Absolute Neutrophils 12.24 H Absolute Lymphocytes 1.25 Absolute Monocytes 1.17 H Absolute Eosinophils 0.00 Absolute Basophils 0.04 RBC Morphology Polychromasia Present Hypochromasia 1+ Anisocytosis Microcytosis 1+ VBG Lactate 0.8 Sodium 148 H Potassium 4.1 Chloride 115 H Carbon Dioxide 17.3 L Anion Gap 15.7 H BUN 14 Creatinine 0.6 L Est GFR (CKD-EPI 2020) 125.93 Glucose 93 Calcium 9.1 Magnesium 1.9 Total Bilirubin 0.3 Conjugated Bilirubin 0.1 AST 21 ALT 28 Alkaline Phosphatase 77 Total Protein 6.7 Albumin 2.8 L Lipase Procalcitonin < 0.1 Urine Color Urine Clarity Urine pH Ur Specific [place] Urine Protein Urine Ketones Urine Blood Urine Nitrite Urine Bilirubin Urine Urobilinogen Ur Leukocyte Esterase Urine RBC Urine WBC Ur Epithelial Cells Urine Crystals Urine Bacteria Urine Mucus Urine Other Ur Culture Indicated? Urine Glucose COVID-19 Source SARS-CoV-2 (PCR) Influenza Type A (PCR) Influenza Type B (PCR) RSV (PCR) Patient ABO/Rh Antibody Screen 12/04/22 12/04/22 12:03 18:03 WBC RBC Hgb Hct MCV MCH MCHC RDW Plt Count MPV Immature Gran % Neutrophils % Lymphocytes % Monocytes % Eosinophils % Basophils % Nucleated RBC % Absolute Neutrophils Absolute Lymphocytes Absolute Monocytes Absolute Eosinophils Absolute Basophils RBC Morphology Polychromasia Hypochromasia Anisocytosis Microcytosis VBG Lactate Sodium Cancelled Cancelled Potassium Cancelled Cancelled Chloride Cancelled Cancelled Carbon Dioxide Cancelled Cancelled Anion Gap Cancelled Cancelled BUN Cancelled Cancelled Creatinine Cancelled Cancelled Est GFR (CKD-EPI 2020) Cancelled Cancelled Glucose Cancelled Cancelled Calcium Cancelled Cancelled Magnesium Total Bilirubin Conjugated Bilirubin AST ALT Alkaline Phosphatase Total Protein Albumin Lipase Procalcitonin Urine Color Urine Clarity Urine pH Ur Specific [place] Urine Protein Urine Ketones Urine Blood Urine Nitrite Urine Bilirubin Urine Urobilinogen Ur Leukocyte Esterase Urine RBC Urine WBC Ur Epithelial Cells Urine Crystals Urine Bacteria Urine Mucus Urine Other Ur Culture Indicated? Urine Glucose COVID-19 Source SARS-CoV-2 (PCR) Influenza Type A (PCR) Influenza Type B (PCR) RSV (PCR) Patient ABO/Rh Antibody Screen
--- NOTE | 2022-12-04 18:50 | PGE_ITS ---
Date of Service Date of service: 12/04/22 Time of Service: 18:50 Assessment and Plan Assessment and plan (1) Sepsis: Status: Acute Assessment and plan: Await cultures and continue vancomycin/cefepime. Obtain MRSA nares. (2) Aspiration pneumonia of right lung: Status: Acute Assessment and plan: Abx as above. Consider reglan to prevent reflux. (3) Acute UTI: Status: Acute Assessment and plan: as above Does have a h/o nephrolithiasis. (4) Acute lactic acidosis: Status: Resolved Assessment and plan: resolved with IV hydration, treatment of infection, as time passed after the seizure. (5) Breakthrough seizure: Status: Acute Assessment and plan: Continue IV keppra 1 gram q12 hrs. Resume carbamazepine (6) Acute dehydration: Status: Acute Assessment and plan: Fluids changed to LR (7) Black stool: Status: Acute Assessment and plan: Continue IV protonix. The patient's guardian and palliative care today established: no EGD/no NGT. Medical therapy only. Trial clear liquids. (8) Acute hypernatremia: Status: Acute Assessment and plan: Improved. Change fluids to LR. (9) Anemia, chronic disease: Status: Chronic Assessment and plan: Check anemia studies. (10) Hypokalemia: Status: Resolved Assessment and plan: Recheck in am (11) Acute bacterial conjunctivitis of right eye: Status: Acute Assessment and plan: Continue ophthalmic erythromycin (12) DVT prophylaxis: Status: Acute Assessment and plan: SCds only if not uncomfortable. Chemical DVT ppx is contraindicated in setting of acute GI bleeding (13) Discharge planning issues: Status: Acute Assessment and plan: DNR/DNI Palliative care consulted. Expected to return home on discharge. Subjective Subjective Interval history since last seen: Chilo has not had any seizures today. His nursing educator is not at bedside during my visit, and Chilo is nonverbal. Exam Narrative Exam Narrative: General: cachectic male who is resting comfortably in bed, nonverbal, not grimacing HEENT: eyes closed, does open them to my voice Heart: RRR, no m/r/g Lungs: CTAB Abdomen: soft, nontender (no grimacing when I press), nondisteded, scaphoid Extremities: no edema Objective Last Vital Signs Temp 36.6 C 12/04/22 16:34 Pulse 80 12/04/22 17:31 Resp 18 12/04/22 17:42 BP 120/70 12/04/22 16:34 Pulse Ox 98 12/04/22 17:42 Laboratory Results - last 24 hr 12/03/22 12/03/22 12/03/22 17:25 19:15 19:35 WBC RBC Hgb 11.4 L D Hct 39.2 L MCV MCH MCHC RDW Plt Count MPV Immature Gran % Neutrophils % Lymphocytes % Monocytes % Eosinophils % Basophils % Nucleated RBC % Absolute Neutrophils Absolute Lymphocytes Absolute Monocytes Absolute Eosinophils Absolute Basophils Polychromasia Hypochromasia Microcytosis VBG Lactate Sodium Potassium Chloride Carbon Dioxide Anion Gap BUN Creatinine Est GFR (CKD-EPI 2020) Glucose Calcium Magnesium 2.3 Total Bilirubin Conjugated Bilirubin AST ALT Alkaline Phosphatase Total Protein Albumin Lipase 25 Procalcitonin Urine Color Urine Clarity Urine pH Ur Specific [place] Urine Protein Urine Ketones Urine Blood Urine Nitrite Urine Bilirubin Urine Urobilinogen Ur Leukocyte Esterase Urine RBC Urine WBC Ur Epithelial Cells Urine Crystals Urine Bacteria Urine Mucus Urine Other Ur Culture Indicated? Urine Glucose Patient ABO/Rh A Negative Antibody Screen NEGATIVE 12/03/22 12/03/22 12/03/22 19:35 22:15 23:30 WBC RBC Hgb 10.0 L Hct 34.2 L MCV MCH MCHC RDW Plt Count MPV Immature Gran % Neutrophils % Lymphocytes % Monocytes % Eosinophils % Basophils % Nucleated RBC % Absolute Neutrophils Absolute Lymphocytes Absolute Monocytes Absolute Eosinophils Absolute Basophils Polychromasia Hypochromasia Microcytosis VBG Lactate 2.8 H* Sodium Potassium Chloride Carbon Dioxide Anion Gap BUN Creatinine Est GFR (CKD-EPI 2020) Glucose Calcium Magnesium Total Bilirubin Conjugated Bilirubin AST ALT Alkaline Phosphatase Total Protein Albumin Lipase Procalcitonin Urine Color Yellow Urine Clarity Sl Cloudy Urine pH 5.5 Ur Specific [place] 1.020 Urine Protein Trace H Urine Ketones >=160 H Urine Blood Small H Urine Nitrite Negative Urine Bilirubin Negative Urine Urobilinogen 0.2 Ur Leukocyte Esterase Trace H Urine RBC 5-10 H Urine WBC 20-50 H Ur Epithelial Cells Rare Urine Crystals Negative Urine Bacteria Moderate Urine Mucus Negative Urine Other Few Yeast Ur Culture Indicated? Yes Urine Glucose Negative Patient ABO/Rh Antibody Screen 12/04/22 12/04/22 12/04/22 00:03 05:35 05:35 WBC RBC Hgb Hct MCV MCH MCHC RDW Plt Count MPV Immature Gran % Neutrophils % Lymphocytes % Monocytes % Eosinophils % Basophils % Nucleated RBC % Absolute Neutrophils Absolute Lymphocytes Absolute Monocytes Absolute Eosinophils Absolute Basophils Polychromasia Hypochromasia Microcytosis VBG Lactate Sodium Cancelled Potassium Cancelled Chloride Cancelled Carbon Dioxide Cancelled Anion Gap Cancelled BUN Cancelled Creatinine Cancelled Est GFR (CKD-EPI 2020) Cancelled Glucose Cancelled Calcium Cancelled Magnesium Cancelled Total Bilirubin Cancelled Conjugated Bilirubin Cancelled AST Cancelled ALT Cancelled Alkaline Phosphatase Cancelled Total Protein Cancelled Albumin Cancelled Lipase Procalcitonin Urine Color Urine Clarity Urine pH Ur Specific [place] Urine Protein Urine Ketones Urine Blood Urine Nitrite Urine Bilirubin Urine Urobilinogen Ur Leukocyte Esterase Urine RBC Urine WBC Ur Epithelial Cells Urine Crystals Urine Bacteria Urine Mucus Urine Other Ur Culture Indicated? Urine Glucose Patient ABO/Rh Antibody Screen 12/04/22 12/04/22 12/04/22 06:03 06:30 06:30 WBC 14.76 H RBC 4.60 Hgb 10.0 L Hct 34.1 L MCV 74 L MCH 21.7 L MCHC 29.3 L RDW 18.3 H Plt Count MPV Immature Gran % 0.4 Neutrophils % 82.9 Lymphocytes % 8.5 Monocytes % 7.9 Eosinophils % 0.0 Basophils % 0.3 Nucleated RBC % 0.0 Absolute Neutrophils 12.24 H Absolute Lymphocytes 1.25 Absolute Monocytes 1.17 H Absolute Eosinophils 0.00 Absolute Basophils 0.04 Polychromasia Present Hypochromasia 1+ Microcytosis 1+ VBG Lactate Sodium Cancelled 148 H Potassium Cancelled 4.1 Chloride Cancelled 115 H Carbon Dioxide Cancelled 17.3 L Anion Gap Cancelled 15.7 H BUN Cancelled 14 Creatinine Cancelled 0.6 L Est GFR (CKD-EPI 2020) Cancelled 125.93 Glucose Cancelled 93 Calcium Cancelled 9.1 Magnesium 1.9 Total Bilirubin 0.3 Conjugated Bilirubin 0.1 AST 21 ALT 28 Alkaline Phosphatase 77 Total Protein 6.7 Albumin 2.8 L Lipase Procalcitonin Urine Color Urine Clarity Urine pH Ur Specific [place] Urine Protein Urine Ketones Urine Blood Urine Nitrite Urine Bilirubin Urine Urobilinogen Ur Leukocyte Esterase Urine RBC Urine WBC Ur Epithelial Cells Urine Crystals Urine Bacteria Urine Mucus Urine Other Ur Culture Indicated? Urine Glucose Patient ABO/Rh Antibody Screen 12/04/22 12/04/22 12/04/22 06:30 12:03 18:03 WBC RBC Hgb Hct MCV MCH MCHC RDW Plt Count MPV Immature Gran % Neutrophils % Lymphocytes % Monocytes % Eosinophils % Basophils % Nucleated RBC % Absolute Neutrophils Absolute Lymphocytes Absolute Monocytes Absolute Eosinophils Absolute Basophils Polychromasia Hypochromasia Microcytosis VBG Lactate 0.8 Sodium Cancelled Cancelled Potassium Cancelled Cancelled Chloride Cancelled Cancelled Carbon Dioxide Cancelled Cancelled Anion Gap Cancelled Cancelled BUN Cancelled Cancelled Creatinine Cancelled Cancelled Est GFR (CKD-EPI 2020) Cancelled Cancelled Glucose Cancelled Cancelled Calcium Cancelled Cancelled Magnesium Total Bilirubin Conjugated Bilirubin AST ALT Alkaline Phosphatase Total Protein Albumin Lipase Procalcitonin < 0.1 Urine Color Urine Clarity Urine pH Ur Specific [place] Urine Protein Urine Ketones Urine Blood Urine Nitrite Urine Bilirubin Urine Urobilinogen Ur Leukocyte Esterase Urine RBC Urine WBC Ur Epithelial Cells Urine Crystals Urine Bacteria Urine Mucus Urine Other Ur Culture Indicated? Urine Glucose Patient ABO/Rh Antibody Screen Time Spent with Patient Time Spent with Patient: 25-34 minutes Time was spent: preparing to see the patient(eg.review tests), obtaining and/or reviewing separately otained hiistory, ordering medications,tests, procedures, referring, communicating with other health progressive care unit registered nurse, indepentently interpreting results, counseling the patient and care coordination
[2022-12-04] MEDS: Normal Saline Flush 10 ML SYR IVP (18:58)
[2022-12-04 21:21] LABS: MRSA PCR Negative (Negative)
[2022-12-04 22:12] LABS: Lab Add On Test DONE
[2022-12-05] VITALS (13 sets, daily range): BP systolic 98–121; BP diastolic 62–74; PULSE 62–107; RESP 1–18; TEMP 36.5–37.2; O2SAT 96–100
[2022-12-05] MEDS: Albuterol/Ipratropium 3 ML UPD VIAL UPD ×4 (00:04→18:04)
[2022-12-05] MEDS: ACETAMINOPHEN 1,000 MG/100 ML BTL 400 MG IVPB ×3 (02:37→18:59)
[2022-12-05] MEDS: Lactated Ringers 1,000 ML 60 ML IV (04:44)
[2022-12-05] MEDS: levETIRAcetam 1,000 MG in Normal Saline 100 ML 400 MG IVPB ×2 (06:27→18:16)
[2022-12-05] MEDS: Pantoprazole 40 MG VIAL IVP ×2 (06:31→18:16)
[2022-12-05] MEDS: Normal Saline Flush 10 ML SYR IVP ×2 (06:31→18:16)
[2022-12-05 07:48] LABS: Abs Immature Grans 0.11 10^3/uL (0.0-0.06); Absolute Basophil Count 0.04 10^3/uL (0.0-0.2); Absolute Monocyte Count 0.77 10^3/uL (0.1-0.8); Absolute Neutrophil Count 11.34 10^3/uL (1.2-6.7); Basophils % 0.3; Eosinophils % 0.1; HCT 31.5 % (40.0-50.0); Immature Grans % 0.8; Lymphocytes % 9.6; MCH 21.5 pg (27.0-33.0); MCHC 28.6 % (32.0-36.0); MCV 75 fL (80-95); MPV 10.6 fL (8.0-11.0); Monocytes % 5.7; Neutrophils % 83.5; Platelet Count 241 10^3/uL (130-400); RBC 4.18 10^6/uL (4.36-5.78); RDW 19.3 % (11.8-14.1); RDW-SD 48.4 fL; WBC 13.58 10^3/uL (4.4-10.8)
[2022-12-05 07:54] LABS: Absolute Eosinophil Count 0.01 10^3/uL (0.0-0.7)
[2022-12-05 08:22] LABS: Iron 21 ug/dL (65-175); Total Iron Binding Capacity 205 ug/dL (250-450); Transferrin Sat 10 % (20-55)
[2022-12-05] MEDS: Erythromycin Ophth Oint 3.5 GM TUBE OD ×3 (08:30→20:09)
[2022-12-05 08:55] LABS: Anion Gap 20.2 mmol/L (3-11); BUN 6 mg/dL (7-18); CO2 16.8 mmol/L (21.0-32.0); CREATININE 0.6 mg/dL (0.70-1.30); Calcium 9.1 mg/dL (8.5-10.1); Chloride 112 mmol/L (98-107); Estimated GFR 125.93 (mL/min/1.73m2); Ferritin 26 ng/mL (26-388); Glucose 78 mg/dL (74-106); Magnesium 1.6 mg/dL (1.8-2.4); Potassium 3.3 mmol/L (3.5-5.1); Sodium 149 mmol/L (136-145); Vitamin B12 432 pg/mL (193-986)
[2022-12-05 08:59] LABS: Folate > 20.0 ng/mL (8.6-20.0)
[2022-12-05] MEDS: CEFEPIME 2 GM in Normal Saline 100 ML IVPB ×2 (10:29→21:49)
--- NOTE | 2022-12-05 11:03 | DI.RAD_ITS ---
Exam(s) XR ABDOMEN FLAT PLATE EXAM: 2D digital imaging was performed. CLINICAL HISTORY: F/u gastric distention. COMPARISON: CT CT CHEST/ABD/PEL WO from 12/03/2022 CR XR ABDOMEN FLAT PLATE from 12/04/2022 TECHNIQUE: Supine views of the abdomen was performed. Two images were obtained. FINDINGS: LUNG BASES: Clear. BOWEL GAS PATTERN: Nondistended. The stomach has a normal appearance. No significant distention is s een. FREE AIR: None. CALCIFICATIONS: Renal calcifications are seen bilaterally in the abdomen. OSSEOUS STRUCTURES: There is again seen a marked levo scoliosis of the thoracolumbar spine. Chronic changes are seen in the hips bilaterally. OTHER FINDINGS: Shunt tubing is again seen. IMPRESSION: Continued improvement in the appearance of the bowel without evidence of significant distension. DATA REPOSITORY: RADIATION DOSE DELIVERED:
[2022-12-05] MEDS: MAGNESIUM SULFATE 1 GM/100 ML BAG IVPB (12:36)
[2022-12-05] MEDS: POTASSIUM CHLORIDE/D5-0.9%NACL 1,000 ML 75 MEQ IV (12:40)
--- NOTE | 2022-12-05 13:19 | CMPROGNOTE_ITS ---
Date of service: 12/05/22 Time of Service: 13:19 Care Management Progress Note Progress Note Text Progress Note Text: S/O: Gio is lying in bed, sleeping. He is being closely monitored and treated with IV ABX and IV Fluids via peripheral line. Per M.D, Invasive procedures are being avoided and quality of life is a primary focus. Gio may need 6 weeks of IV ABX, cultures are pending. Palliative is following goals of care and a follow up is planned for tomorrow. CM will follow. A: 37 year old male admitted to [facility] on 12/03/22 for Aspiration pneumonia, advanced care planning P:?Gio is being closely monitored and treated with IV ABX and fluids. snf ABX course is undetermined at this time, cultures are pending. Palliative met with Gio and his Guardian yesterday to discuss goals of care. Palliative follow up is planned for Friday.? CM will continue to follow.
--- NOTE | 2022-12-05 13:22 | W.PM.PROGNOT ---
Date of Service Date of service: 12/05/22 Time of Service: 09:00 Assessment and Plan Assessment and plan (1) Sepsis: Status: Acute Assessment and plan: Due to UTI and aspiration PNA, present on admission. Urine C&S pending. Blood cx w/ NGTD. Continue vancomycin/cefepime. MRSA nares negative. Will d/c vanco if urine C&S permits this. (2) Aspiration pneumonia of right lung: Status: Acute Assessment and plan: Abx as above. Consider reglan to prevent reflux. (3) Acute UTI: Status: Acute Assessment and plan: as above Does have a h/o nephrolithiasis. (4) Acute lactic acidosis: Status: Resolved Assessment and plan: resolved with IV hydration, treatment of infection, as time passed after the seizure. (5) Breakthrough seizure: Status: Acute Assessment and plan: Continue IV keppra 1 gram q12 hrs. Not taking PO, so unable to take carbamazepine. I have reached out to Dr Harris to discuss whether we need to provide additional anticonvulsants IV. (6) Acute dehydration: Status: Acute Assessment and plan: With hypernatremia and hypokalemia. Change IVF to D5 1/2 NS with 40 MEQ of Potassium. (7) Black stool: Status: Acute Assessment and plan: Continue IV protonix. The patient's guardian and palliative care established: no EGD/no NGT. Medical therapy only. Refusing PO. (8) Acute hypernatremia: Status: Acute Assessment and plan: As above. Changing fluids. (9) Anemia, chronic disease: Status: Chronic Assessment and plan: With evidence of iron deficiency - replete. (10) Hypokalemia: Status: Acute Assessment and plan: Replete, recheck in am. (11) Acute bacterial conjunctivitis of right eye: Status: Acute Assessment and plan: Continue ophthalmic erythromycin (12) DVT prophylaxis: Status: Acute Assessment and plan: SCDs only if not uncomfortable. Chemical DVT ppx is contraindicated in setting of acute GI bleeding (13) Discharge planning issues: Status: Acute Assessment and plan: DNR/DNI Palliative care consulted. Expected to return home on discharge. Subjective Subjective Interval history since last seen: Chilo has not had any documented bleeding. He is refusing PO, even with his caregivers. Afebrile and unable to answer questions at baseline. Exam Narrative Exam Narrative: General: cachectic male who is resting comfortably in bed, nonverbal, not grimacing HEENT: eyes closed, does open them to my voice Heart: RRR, no m/r/g Lungs: CTAB Abdomen: soft, nondisteded, scaphoid, does appear to grimace today when I press in the epigastrium. Extremities: no edema, contracted extremities. Objective Last Vital Signs Temp 37.0 C 12/05/22 07:03 Pulse 68 12/05/22 12:32 Resp 18 12/05/22 05:23 BP 106/64 12/05/22 07:03 Pulse Ox 99 12/05/22 12:23 Laboratory Results - last 24 hr 12/04/22 12/04/22 12/05/22 19:46 Unknown 05:35 WBC RBC Hgb Hct MCV MCH MCHC RDW Plt Count MPV Immature Gran % Neutrophils % Lymphocytes % Monocytes % Eosinophils % Basophils % Nucleated RBC % Absolute Neutrophils Absolute Lymphocytes Absolute Monocytes Absolute Eosinophils Absolute Basophils Sodium Cancelled Potassium Cancelled Chloride Cancelled Carbon Dioxide Cancelled Anion Gap Cancelled BUN Cancelled Creatinine Cancelled Est GFR (CKD-EPI 2020) Cancelled Glucose Cancelled Calcium Cancelled Magnesium Cancelled Iron TIBC Transferrin % Sat Ferritin Vitamin B12 Folate MRSA (TEM-PCR) Negative Add-On Test Request DONE 12/05/22 12/05/22 12/05/22 07:10 07:10 07:10 WBC 13.58 H RBC 4.18 L Hgb 9.0 L Hct 31.5 L MCV 75 L MCH 21.5 L MCHC 28.6 L RDW 19.3 H Plt Count 241 MPV 10.6 Immature Gran % 0.8 Neutrophils % 83.5 Lymphocytes % 9.6 Monocytes % 5.7 Eosinophils % 0.1 Basophils % 0.3 Nucleated RBC % 0.0 Absolute Neutrophils 11.34 H Absolute Lymphocytes 1.30 Absolute Monocytes 0.77 Absolute Eosinophils 0.01 Absolute Basophils 0.04 Sodium 149 H Potassium 3.3 L Chloride 112 H Carbon Dioxide 16.8 L Anion Gap 20.2 H BUN 6 L Creatinine 0.6 L Est GFR (CKD-EPI 2020) 125.93 Glucose 78 Calcium 9.1 Magnesium 1.6 L Iron 21 L TIBC 205 L Transferrin % Sat 10 L Ferritin 26 Vitamin B12 432 Folate > 20.0 H MRSA (TEM-PCR) Add-On Test Request Objective Narrative Objective Narrative: XR abdomen: Continued improvement in the appearance of the bowel without evidence of significant distension.? Time Spent with Patient Time Spent with Patient: 25-34 minutes Time was spent: preparing to see the patient(eg.review tests), obtaining and/or reviewing separately otained hiistory, ordering medications,tests, procedures, referring, communicating with other health direct support professional caregiver, indepentently interpreting results, counseling the patient and care coordination
[2022-12-05] MEDS: POTASSIUM CHLORIDE/D5-0.45NACL 1,000 ML 75 MEQ IV (14:35)
--- NOTE | 2022-12-05 15:22 | PCPN_ITS ---
Date of service: 12/05/22 Time of Service: 15:22 Assessment and Plan Assessment and plan (1) Sepsis: Status: Acute Assessment and plan: Blood and urine cultures pending, continue IV antibiotics and fluids (2) Difficult intravenous access: Status: Acute (3) Acute dehydration: Status: Acute (4) Aspiration pneumonia: Status: Acute Assessment and plan: High aspiration risk however due to quality of life concerns consider advancing diet as tolerated once Joseph show signs of interest in food or drink (5) Hypokalemia: Status: Acute (6) Palliative care patient: Status: Acute (7) DNI (do not intubate): Status: Acute (8) DNR (do not resuscitate): Status: Acute (9) Weight loss: Status: Acute Assessment and plan: 13% of body weight since July 2022 (10) Seizure: Status: Acute (11) Cerebral palsy: Qualifiers: Cerebral palsy type: spastic quadriplegic Qualified Code(s): G80.0 - Spastic quadriplegic cerebral palsy (12) Encounter for hospice care discussion: Status: Acute Assessment and plan: Continue to review hospice eligibility. They prefer to see if he improves over the next couple of days. (13) ACP (advance care planning): Status: Acute Assessment and plan: Marc Holloway was seen by Yue Ocampo NP yesterday for Palliative consultation. He was seen for Palliative f/u today. Staff report that he is not allowing anything near his mouth, he swats everything away. He allows all other care. Spoke to his caregiver, Ashley via phone. Ashley's preference is to give more time, monitor Cx, make decisions after he is given plenty of time to resume PO intake. Once he is medically ready, Ashley wants to take him back home. He usually does better at home. During their visit yesterday, Ashley and his guardian, Minnie were clear that they did not want aggressive care, this is consistent with what they have wanted for Chilo in the past. They wish to focus on quality of life. They prefer to see what the Cx shows before discussing if they want long-term abx or not. Follow up tomorrow, we should have Cx results by then. He is a DNR/DNI. Subjective Subjective Interval history since last seen: Marc Holloway was seen by Yue Ocampo NP yesterday for Palliative consultation. He was seen for Palliative f/u today. Staff report that he is not allowing anything near his mouth, he swats everything away. He allows all other care. Spoke to his caregiver, Ashley via phone. Ashley feels it is too early to make de cisions. She reports that he has gone a week before resuming eating in the hospital in the past. She would like to see him taking bites and p.o. meds before she takes him home. He generally does well once she gets him home. During their visit yesterday, Ashley and his guardian, Minnie were clear that they did not want aggressive care, this is consistent with what they have wanted for Chilo in the past. They wish to focus on quality of life. They prefer to see what the Cx shows before discussing if they want long-term abx or not. Exam Narrative Exam Narrative: General: Thin, chronically ill-appearing man of short stature and head size, laying in bed on his right side, receiving care from his nurse. No grimacing or moaning. Does not appear uncomfortable in any way. He is nonverbal at baseline. HEENT: Eyes closed, mucous membranes moist. Cardiovascular: Heart sounds regular, nontachycardic. Respiratory: Respirations appear even and unlabored, does not appear to be in any respiratory distress, no coughing during the visit. GI: Abdomen is soft, + bowel sounds, no response to gentle palpation. Extremities: With contractures and muscle wasting. Objective Last Vital Signs Temp 36.5 C 12/05/22 15:04 Pulse 77 12/05/22 15:04 Resp 18 12/05/22 05:23 BP 121/70 12/05/22 15:04 Pulse Ox 100 12/05/22 15:04 Laboratory Results - last 24 hr 12/04/22 12/04/22 12/05/22 19:46 Unknown 05:35 WBC RBC Hgb Hct MCV MCH MCHC RDW Plt Count MPV Immature Gran % Neutrophils % Lymphocytes % Monocytes % Eosinophils % Basophils % Nucleated RBC % Absolute Neutrophils Absolute Lymphocytes Absolute Monocytes Absolute Eosinophils Absolute Basophils Sodium Cancelled Potassium Cancelled Chloride Cancelled Carbon Dioxide Cancelled Anion Gap Cancelled BUN Cancelled Creatinine Cancelled Est GFR (CKD-EPI 2020) Cancelled Glucose Cancelled Calcium Cancelled Magnesium Cancelled Iron TIBC Transferrin % Sat Ferritin Vitamin B12 Folate MRSA (TEM-PCR) Negative Add-On Test Request DONE 12/05/22 12/05/22 12/05/22 07:10 07:10 07:10 WBC 13.58 H RBC 4.18 L Hgb 9.0 L Hct 31.5 L MCV 75 L MCH 21.5 L MCHC 28.6 L RDW 19.3 H Plt Count 241 MPV 10.6 Immature Gran % 0.8 Neutrophils % 83.5 Lymphocytes % 9.6 Monocytes % 5.7 Eosinophils % 0.1 Basophils % 0.3 Nucleated RBC % 0.0 Absolute Neutrophils 11.34 H Absolute Lymphocytes 1.30 Absolute Monocytes 0.77 Absolute Eosinophils 0.01 Absolute Basophils 0.04 Sodium 149 H Potassium 3.3 L Chloride 112 H Carbon Dioxide 16.8 L Anion Gap 20.2 H BUN 6 L Creatinine 0.6 L Est GFR (CKD-EPI 2020) 125.93 Glucose 78 Calcium 9.1 Magnesium 1.6 L Iron 21 L TIBC 205 L Transferrin % Sat 10 L Ferritin 26 Vitamin B12 432 Folate > 20.0 H MRSA (TEM-PCR) Add-On Test Request
--- NOTE | 2022-12-05 15:44 | W.NEUROCONSU ---
Date of service: 12/05/22 Time of Service: 15:44 Assessment and Plan Assessment and plan (1) Breakthrough seizure: Status: Acute (2) Adult failure to thrive: Status: Acute (3) Aspiration pneumonia of right lung: Status: Acute (4) Sepsis: Status: Acute (5) Acute hypernatremia: Status: Acute Assessment and plan: Care team currently waiting to see how he responds to antibiotics and recovers from current acute illness. Hypernatremia may still be contributing. Continue LEV 1000mg IV BID for now for seizure prevention. I had discussed with Ashley over last several months option to transition to clonazepam ODT for seizure prevention if/when he no longer takes PO reliably and with transition to hospice knowing that this may sedate him and worsen PO intake/aspirations risks. Rectal diazepam is already being used for rescue and could be continued to be utilized. I left a with Ashley. Neurology service will be back on 12/09/22. Please call with any questions or concerns. History of Present Illness History of Present Illness Chief Complaint: seizure Narrative: Handedness: LEFT. HPI: Mr. Holloway is a 37-year-old man with cerebral palsy, severe developmental delay, and intractable epilepsy with hydrocephalus s/p SENIOR ACCOUNTANT CPA shunt with revision. I know Joseph well as he has been my patient since Mar 2014, last seen 08/28/22. Over the last 6months, he has had several episodes of fever and illness, often aspiration PNA, which invariably results in poor PO intake and refusal of PO medications with increased breakthrough seizures. He was admitted to [facility] on 12/03/22 with decreased PO intake x 4 days in the setting of fever, emesis with aspiration, ?GI bleed, R conjunctivitis, hypernatremia, breakthrough seizures (on 11/30/22 in which he was apneic and taken to [facility] ER) and in the ER here on 12/03/22. In regards to his seizures, his usual home regimen is as below. He was given LEV 1500mg IV in the ER and maintained on 1000mg BID without further seizure activity since admission. He continues to refuse PO intake at this time and is not taking PO medications. Palliative care also involved helping to navigate his care. He is DNR/DNI and they had already waived invasive procedures. -Current ASMs: carbamazepine 200mg IR TID (Mar 2020-) gabapentin 800 mg t.i.d. was added by Dr. Amor sometime in 2007 - 2008.? levetiracetam 750mg BID (Oct 2019 - ) Work-up: -Labs (12/05/22): WBC still elevated at 13.58 down from 19.90 on admission; Hgb concentrated at 14.9 at admission and reduced to 11.4->10->9.0 with fluid resuscitation; Na still elevated at 149 - was 152 on admission; Cr at 0.9 at admission down to 0.6 baseline with fluids; -CTH (12/03/22): no obvious hydrocephalus/shunt malformation. I reviewed these images personally and this is my personal interpretation. PFSH All Active Problems (Updated 12/05/22 @ 16:24 by Cydney Harris MD) Adult failure to thrive (Acute) DVT prophylaxis (Acute) Discharge planning issues (Acute) ACP (advance care planning) (Acute) Encounter for hospice care discussion (Acute) Acute bacterial conjunctivitis of right eye (Acute) Difficult intravenous access (Acute) Breakthrough seizure (Acute) Thrombocytosis (Acute) Acute dehydration (Acute) Aspiration pneumonia of right lung (Acute) Black stool (Acute) Bilateral kidney stones (Acute) Hip pain, right (Acute) Pneumonia (Acute) Acute UTI (Acute) Sepsis (Acute) Aspiration pneumonia (Acute) Sepsis syndrome (Acute) Breakthrough seizure (Acute) With prolonged Postictal state, resolved. [facility] 06/02/22 Hypokalemia (Acute) [facility] 06/01/22. Acute hypernatremia (Acute) [facility] 06/02/22 Gallbladder sludge (Acute) Goals of care, counseling/discussion (Acute) Palliative care patient (Acute) POLST (Physician Orders for Life-Sustaining Treatment) (Acute) DNI (do not intubate) (Acute) DNR (do not resuscitate) (Acute) Weight loss (Acute) Anxiety in acute stress reaction (Acute) Dental caries extending into dentin (Acute) Anemia (Chronic) Right nephrolithiasis (Chronic) Seizure (Acute) Status post ventriculoperitoneal shunt (Chronic) Vitamin D deficiency (Chronic) Focal epilepsy with impairment of consciousness, intractable (Chronic) Mental retardation (Chronic) non verbal incontinent bladder and bowel Idiopathic scoliosis (Chronic) Hydrocephalus (Chronic 04/30/14) 2014 SENIOR ACCOUNTANT CPA shunt malfunction and new shunt inserted at [facility] Apr 2014 Bowel and bladder incontinence (Chronic 01/28/14) 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 femoral resections H/O nephrostomy History of lung surgery unknown; large scar on chest History of surgical procedure S/P ureteral stent placement (~06/28/18) 06/28/18 [facility] [place]; LEFT-kb SHUNT SENIOR ACCOUNTANT CPA SHUNT; revision in 2014 Status post laser lithotripsy of ureteral calculus Family History Mother , AGE 40 Cancer Father No problems noted. Sister Cancer Maternal Grandfather , AGE 73 Cancer Maternal Grandmother , AGE 77 Cancer Brother , MVA AGE 10 No problems noted. Social History Smoking/Tobacco Use Status: Never Smoking risk assessment performed?: Yes Alcohol Intake: never Drug use: Never Substance use type: does not use Caregiver/Support person: Yes Household members: caregiver Housing: house Number of Children: 0 Pets and animals: Yes Pets and animals: dog(s) Sexually active: No What is your relationship status?: never How often do you talk on the phone with friends or family?: never How often do you get together with friends or relatives?: decline to answer How often do you attend sabianist or gnosticism services?: decline to answer Do you belong to any clubs or organized social groups?: decline to answer Panel score (0-1 are the most socially isolated patients): 0 What type of physical activity do you participate in: other Details: bouncing Duration: < 15 minutes/day Latonya/Presybeterian: None Special latonya needs: No Seatbelt use: always Drive intox or ride w/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 Do you feel safe at home: Yes Do you feel safe in your relationship?: Yes Visit Medication and Allergies Active Medications Generic Name Dose Route Start Last Admin Trade Name Freq PRN Reason Stop Dose Admin Albuterol Sulfate 2.5 mg 12/03/22 23:55 Albuterol 2.5 Mg/3 Ml Inh Soln Vial UPD Q2H PRN PRN Albuterol/Ipratropium 3 ml 12/03/22 23:45 12/05/22 12:23 Albuterol/Ipratropium 3 Ml Upd Vial UPD 3 ml Q6H GANESH Administration Bisacodyl 10 mg 12/04/22 00:06 Bisacodyl 10 Mg Supp CA DAILY PRN constipation Carbamazepine 200 mg 12/04/22 20:00 12/05/22 14:29 Carbamazepine 200 Mg Tab PO Not Given TID GANESH Dimethicone/Zinc Oxide 0 gm 12/04/22 00:16 Perla Protect Cream 142 Gm Tube TP PRN PRN Erythromycin 3.5 gm 12/03/22 20:00 12/05/22 14:35 Erythromycin Ophth Oint 3.5 Gm Tube OD 1 dose pk TID GANESH Administration Acetaminophen 1,000 mg in 100 mls @ 400 mls/hr 12/04/22 02:00 12/05/22 12:27 Ofirmev IVPB Infused Q8H GANESH Infusion Cefepime HCl 2 gm/ Sodium 100 mls @ 200 mls/hr 12/04/22 10:00 12/05/22 12:00 Chloride IVPB Infused Q12H GANESH Infusion Potassium Chloride/Sodium Chloride 1,000 mls @ 75 mls/hr 12/05/22 13:30 12/05/22 14:35 Kcl 40meq/D5-0.45% Nacl IV 75 mls/hr INFUSION GANESH Administration Iron Sucrose 100 mg/ Sodium 105 mls @ 400 mls/hr 12/05/22 16:00 Chloride IVPB 12/05/22 16:15 TODAY@1600 ONE Levetiracetam 1,500 mg/ Sodium 115 mls @ 400 mls/hr 12/05/22 18:00 Chloride IVPB Q12H GANESH Nystatin 0 gm 12/04/22 07:28 Nystatin Cream 30 Gm Tube TP BID PRN PRN intertrigo Pantoprazole Sodium 40 mg 12/04/22 06:00 12/05/22 06:31 Pantoprazole 40 Mg Vial IVP 40 mg Q12H GANESH Administration Prochlorperazine Edisylate 5 mg 12/04/22 01:13 Prochlorperazine 10 Mg/2 Ml Vial IVP Q4H PRN PRN Sodium Chloride 0 ml 12/04/22 03:06 12/05/22 06:31 Normal Saline Flush 10 Ml Syr IVP 10 ml PRN PRN Administration Allergies latex Allergy (Severe, Verified 12/03/22 15:30) ANAPHYLAXIS venom-honey bee Allergy (Unknown, Verified 12/03/22 15:30) adhesive tape Adverse Reaction (Severe, Verified 12/03/22 15:30) irritation, rash heparin Adverse Reaction (Severe, Verified 12/03/22 15:30) GI BLEED NSAIDS (Non-Steroidal Anti-Inflamma Adverse Reaction (Intermediate, Verified 12/03/22 15:30) GI BLEED ferrous sulfate Adverse Reaction (Verified 12/03/22 15:30) Exam Narrative Exam Narrative: Physical Exam:? Patient somnolent. Very small stature and head size.? No LE movements.? No moaning. No apparent distress. Looks calm. Results Last Vital Signs Temp 97.7 F 12/05/22 15:04 Pulse 77 12/05/22 15:04 Resp 18 12/05/22 05:23 BP 121/70 12/05/22 15:04 Pulse Ox 100 12/05/22 15:04 Labs 12/05/22 07:10 12/05/22 07:10 Labs: Laboratory Results - last 24 hr 12/04/22 12/04/22 12/05/22 19:46 Unknown 05:35 WBC RBC Hgb Hct MCV MCH MCHC RDW Plt Count MPV Immature Gran % Neutrophils % Lymphocytes % Monocytes % Eosinophils % Basophils % Nucleated RBC % Absolute Neutrophils Absolute Lymphocytes Absolute Monocytes Absolute Eosinophils Absolute Basophils Sodium Cancelled Potassium Cancelled Chloride Cancelled Carbon Dioxide Cancelled Anion Gap Cancelled BUN Cancelled Creatinine Cancelled Est GFR (CKD-EPI 2020) Cancelled Glucose Cancelled Calcium Cancelled Magnesium Cancelled Iron TIBC Transferrin % Sat Ferritin Vitamin B12 Folate MRSA (TEM-PCR) Negative Add-On Test Request DONE 12/05/22 12/05/22 12/05/22 07:10 07:10 07:10 WBC 13.58 H RBC 4.18 L Hgb 9.0 L Hct 31.5 L MCV 75 L MCH 21.5 L MCHC 28.6 L RDW 19.3 H Plt Count 241 MPV 10.6 Immature Gran % 0.8 Neutrophils % 83.5 Lymphocytes % 9.6 Monocytes % 5.7 Eosinophils % 0.1 Basophils % 0.3 Nucleated RBC % 0.0 Absolute Neutrophils 11.34 H Absolute Lymphocytes 1.30 Absolute Monocytes 0.77 Absolute Eosinophils 0.01 Absolute Basophils 0.04 Sodium 149 H Potassium 3.3 L Chloride 112 H Carbon Dioxide 16.8 L Anion Gap 20.2 H BUN 6 L Creatinine 0.6 L Est GFR (CKD-EPI 2020) 125.93 Glucose 78 Calcium 9.1 Magnesium 1.6 L Iron 21 L TIBC 205 L Transferrin % Sat 10 L Ferritin 26 Vitamin B12 432 Folate > 20.0 H MRSA (TEM-PCR) Add-On Test Request
[2022-12-05] MEDS: IRON SUCROSE COMPLEX 100 MG in Normal Saline 100 ML 400 MG IVPB (16:33)
[2022-12-05] MEDS: Bisacodyl 10 MG SUPP PR (18:06)
[2022-12-05 19:14] LABS: Carbamazepine <2.0 ug/mL (4.0-12.0)
[2022-12-06] MEDS: ACETAMINOPHEN 1,000 MG/100 ML BTL 400 MG IVPB ×3 (02:08→21:30)
[2022-12-06] MEDS: Pantoprazole 40 MG VIAL IVP ×2 (05:50→21:19)
[2022-12-06] MEDS: levETIRAcetam 1,000 MG in Normal Saline 100 ML 400 MG IVPB ×2 (05:50→21:02)
[2022-12-06] MEDS: POTASSIUM CHLORIDE/D5-0.45NACL 1,000 ML 75 MEQ IV (06:00)
[2022-12-06 06:08] VITALS: BP 105/60; PULSE 72; RESP 16; TEMP 36.5; O2SAT 99
--- NOTE | 2022-12-06 08:42 | W.PM.PROGNOT ---
Date of Service Date of service: 12/06/22 Time of Service: 08:42 Assessment and Plan Assessment and plan (1) Sepsis: Status: Acute Assessment and plan: Due to UTI and aspiration PNA, present on admission. Urine C&S still not back, but clinically much improved today. Blood cx w/ NGTD. Continue vancomycin/cefepime until urine C&S is known. MRSA nares negative. Will d/c vanco if urine C&S permits this. (2) Aspiration pneumonia of right lung: Status: Acute Assessment and plan: Abx as above. Consider reglan to prevent reflux. (3) Acute UTI: Status: Acute Assessment and plan: as above. Present on admission. Does have a h/o nephrolithiasis. Await urine C&S. (4) Breakthrough seizure: Status: Acute Assessment and plan: Continue IV keppra 1 gram q12 hrs. Now that the patient is more awake, I am optimistic he will try eating and might be able to take better PO. There is a plan to trial ODT clonazepam if he is not taking oral anticonvulsants, but at a risk of worsening sedations and poorer PO intake. (5) Toxic metabolic encephalopathy: Status: Acute Assessment and plan: In setting of infection, hypernatremia, seizure. Mental status is much improved this am. Continue current management with adjustment on fluids based on the chemistry results. (6) Acute lactic acidosis: Status: Resolved Assessment and plan: resolved with IV hydration, treatment of infection, as time passed after the seizure. (7) Acute dehydration: Status: Acute Assessment and plan: With hypernatremia and hypokalemia. Chemistry is not yet back today. On D5 1/2 NS with 40 MEQ of Potassium. I suspect that the patient's improvement in mental status today corresponds to improvement in his sodium. Will follow. (8) Black stool: Status: Acute Assessment and plan: Continue IV protonix. The patient's guardian and palliative care established: no EGD/no NGT. Medical therapy only. Trial a diet now that he is more awake. (9) Acute hypernatremia: Status: Acute Assessment and plan: As above. (10) Anemia, chronic disease: Status: Chronic Assessment and plan: With evidence of iron deficiency - s/p venofer yesterday. (11) Hypokalemia: Status: Acute Assessment and plan: Await chemistry this am. (12) Acute bacterial conjunctivitis of right eye: Status: Acute Assessment and plan: Continue ophthalmic erythromycin (13) Adult failure to thrive: Status: Acute Assessment and plan: Palliative care following and hospice has been previously discussed if the patient's PO intake does not improve. (14) DVT prophylaxis: Status: Acute Assessment and plan: SCDs only if not uncomfortable. Chemical DVT ppx is contraindicated in setting of acute GI bleeding (15) Discharge planning issues: Status: Acute Assessment and plan: DNR/DNI Palliative care consulted. Expected to return home on discharge, which may be nearing since his mental status is improving. Subjective Subjective Interval history since last seen: Awake, responding to verbal stimuli, opening eyes. He does have chronic nystagmus, as I clarified with Dr Harris. Exam Narrative Exam Narrative: General: cachectic male is awake, opening eyes, and appears to be responding to voice HEENT: opening eyes, persistent horizontal nystagmus Heart: RRR, no m/r/g Lungs: CTAB Abdomen: soft, nondisteded, scaphoid, no grimacing when I press on epigastrium Extremities: no edema, contracted extremities. Objective Last Vital Signs Temp 36.5 C 12/06/22 06:08 Pulse 72 12/06/22 06:08 Resp 16 12/06/22 06:08 BP 105/60 12/06/22 06:08 Pulse Ox 99 12/06/22 06:08 Laboratory Results - last 24 hr 12/03/22 12/05/22 17:25 07:10 Sodium 149 H Potassium 3.3 L Chloride 112 H Carbon Dioxide 16.8 L Anion Gap 20.2 H BUN 6 L Creatinine 0.6 L Est GFR (CKD-EPI 2020) 125.93 Glucose 78 Calcium 9.1 Magnesium 1.6 L Ferritin 26 Vitamin B12 432 Folate > 20.0 H Path Cons Comment Time Spent with Patient Time Spent with Patient: 25-34 minutes Time was spent: preparing to see the patient(eg.review tests), obtaining and/or reviewing separately otained hiistory, ordering medications,tests, procedures, referring, communicating with other health home health care case manager, indepentently interpreting results, counseling the patient and care coordination
[2022-12-06 09:19] VITALS: BP 111/65; PULSE 70; RESP 18; TEMP 36.5; O2SAT 99
[2022-12-06] MEDS: Erythromycin Ophth Oint 3.5 GM TUBE OD (09:50)
[2022-12-06] MEDS: CEFEPIME 2 GM in Normal Saline 100 ML IVPB (09:50)
--- NOTE | 2022-12-06 10:28 | PDOC.CMPRO ---
Date of service: 12/06/22 Time of Service: 10:28 Care Management Progress Note Progress Note Text Progress Note Text: S/O: Gio is lying in bed, he appears to be sleeping and looks comfortable. He continues to be closely monitored and treated with IV ABX and IV Fluids via peripheral line. Per provider, Gio is improving clinically, cultures are pending, LT ABX course is undetermined. Quality of life is a primary focus and invasive interventions are being avoided (See progress note). Palliative is following goals of care and a follow up is scheduled for today. Anticipate, discharge back to caregivers home in [place] if his nutritional intake improves. CM will follow. A: 37 year old male admitted to [facility] on 12/03/22 for Aspiration pneumonia, advanced care planning P:?Gio is being closely monitored and treated with IV ABX and fluids. 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 Palliative met with Gio and his Guardian yesterday to discuss goals of care. Palliative follow up is planned for Friday.? CM will continue to follow.
[2022-12-06 11:54] VITALS: BP 108/63; PULSE 70; RESP 16; TEMP 36.3; O2SAT 98
[2022-12-06 16:00] VITALS: BP 110/70; PULSE 80; RESP 16; TEMP 36.4; O2SAT 98
[2022-12-06 19:21] VITALS: BP 96/59; PULSE 61; RESP 17; TEMP 36.8; O2SAT 95
[2022-12-06 20:53] LABS: Abs Immature Grans 0.06 10^3/uL (0.0-0.06); Absolute Basophil Count 0.05 10^3/uL (0.0-0.2); Absolute Eosinophil Count 0.18 10^3/uL (0.0-0.7); Absolute Lymphocyte Count 1.19 10^3/uL (1.2-3.4); Absolute Monocyte Count 0.57 10^3/uL (0.1-0.8); Absolute Neutrophil Count 5.08 10^3/uL (1.2-6.7); Basophils % 0.7; Eosinophils % 2.5; HCT 32.8 % (40.0-50.0); HGB 9.8 g/dL (13.5-17.5); Immature Grans % 0.8; Lymphocytes % 16.7; MCH 21.8 pg (27.0-33.0); MCHC 29.9 % (32.0-36.0); MCV 73 fL (80-95); Neutrophils % 71.3; Nucleated RBC 0.3 % (0.0-0.3); RBC 4.49 10^6/uL (4.36-5.78); RDW 20.2 % (11.8-14.1); RDW-SD 47.5 fL; WBC 7.13 10^3/uL (4.4-10.8)
[2022-12-06 21:00] LABS: Anion Gap 11.8 mmol/L (3-11); BUN 2 mg/dL (7-18); CO2 23.2 mmol/L (21.0-32.0); CREATININE 0.5 mg/dL (0.70-1.30); Calcium 9.6 mg/dL (8.5-10.1); Chloride 111 mmol/L (98-107); Estimated GFR 133.06 (mL/min/1.73m2); Glucose 100 mg/dL (74-106); Magnesium 1.8 mg/dL (1.8-2.4); Potassium 3.2 mmol/L (3.5-5.1); Sodium 146 mmol/L (136-145)
[2022-12-06 21:17] LABS: Anisocytosis 2+; Microcytosis 2+
[2022-12-06] MEDS: CEFEPIME 1 GM in Normal Saline 50 ML IVPB (22:42)
[2022-12-06 23:22] VITALS: BP 108/59; PULSE 73; RESP 18; TEMP 36.3; O2SAT 98
[2022-12-07] VITALS (7 sets, daily range): BP systolic 76–130; BP diastolic 43–69; PULSE 60–68; RESP 16–18; TEMP 36–36.9; O2SAT 92–100
[2022-12-07] MEDS: ACETAMINOPHEN 1,000 MG/100 ML BTL 400 MG IVPB ×2 (03:03→17:29)
[2022-12-07] MEDS: CEFEPIME 1 GM in Normal Saline 50 ML IVPB ×3 (06:39→21:32)
[2022-12-07] MEDS: Pantoprazole 40 MG VIAL IVP ×2 (06:40→17:29)
[2022-12-07 07:33] LABS: Abs Immature Grans 0.08 10^3/uL (0.0-0.06); Absolute Basophil Count 0.04 10^3/uL (0.0-0.2); Absolute Eosinophil Count 0.25 10^3/uL (0.0-0.7); Absolute Lymphocyte Count 1.13 10^3/uL (1.2-3.4); Absolute Monocyte Count 0.49 10^3/uL (0.1-0.8); Absolute Neutrophil Count 3.67 10^3/uL (1.2-6.7); Basophils % 0.7; Eosinophils % 4.4; HCT 30.6 % (40.0-50.0); Immature Grans % 1.4; MCH 21.7 pg (27.0-33.0); MCHC 29.4 % (32.0-36.0); MCV 74 fL (80-95); MPV 10.7 fL (8.0-11.0); Monocytes % 8.7; Neutrophils % 64.8; Nucleated RBC 0.4 % (0.0-0.3); Platelet Count 263 10^3/uL (130-400); RBC 4.14 10^6/uL (4.36-5.78); RDW 20.5 % (11.8-14.1); RDW-SD 48.4 fL; WBC 5.66 10^3/uL (4.4-10.8)
[2022-12-07 07:36] LABS: Anion Gap 9.7 mmol/L (3-11); BUN 3 mg/dL (7-18); CO2 24.3 mmol/L (21.0-32.0); CREATININE 0.7 mg/dL (0.70-1.30); Calcium 9.2 mg/dL (8.5-10.1); Chloride 111 mmol/L (98-107); Glucose 100 mg/dL (74-106); Magnesium 1.6 mg/dL (1.8-2.4); Potassium 3.3 mmol/L (3.5-5.1); Sodium 145 mmol/L (136-145)
[2022-12-07] MEDS: levETIRAcetam 1,000 MG in Normal Saline 100 ML 400 MG IVPB ×2 (09:10→20:43)
[2022-12-07] MEDS: Normal Saline Flush 10 ML SYR IVP ×2 (09:14→17:29)
[2022-12-07] MEDS: MAGNESIUM SULFATE 1 GM/100 ML BAG IVPB (09:56)
[2022-12-07] MEDS: POTASSIUM CHLORIDE 20 MEQ/100 ML BAG 50 MEQ IVPB (11:04)
[2022-12-07] MEDS: POTASSIUM CHLORIDE/D5-0.45NACL 1,000 ML 60 MEQ IV (11:05)
--- NOTE | 2022-12-07 14:39 | W.PM.PROGNOT ---
Date of Service Date of service: 12/07/22 Time of Service: 14:39 Assessment and Plan Assessment and plan (1) Sepsis: Status: Acute Assessment and plan: Due to UTI and aspiration PNA, present on admission. Urine C&S is still not back. I am not sure he is better today. Blood cx w/ NGTD. Continue cefepime until urine C&S is known. Vancomycin was not continued past ED, in correction of my prior notes. (2) Aspiration pneumonia of right lung: Status: Acute Assessment and plan: Abx as above. Consider reglan to prevent reflux. (3) Acute UTI: Status: Acute Assessment and plan: as above. Present on admission. Does have a h/o nephrolithiasis. Await urine C&S. (4) Breakthrough seizure: Status: Acute Assessment and plan: Continue IV keppra 1 gram q12 hrs. He is not taking PO. There is a plan to trial ODT clonazepam if he is not taking oral anticonvulsants, but at a risk of worsening sedations and poorer PO intake. (5) Toxic metabolic encephalopathy: Status: Acute Assessment and plan: In setting of infection, hypernatremia, seizure. Continue current management with adjustment on fluids based on the chemistry results. (6) Acute lactic acidosis: Status: Resolved Assessment and plan: resolved with IV hydration, treatment of infection, as time passed after the seizure. (7) Acute dehydration: Status: Acute Assessment and plan: With hypernatremia and hypokalemia. Continue IVF. Sodium is better. (8) Black stool: Status: Acute Assessment and plan: Continue IV protonix. The patient's guardian and palliative care established: no EGD/no NGT. Medical therapy only. Continue to offer PO diet. (9) Acute hypernatremia: Status: Acute Assessment and plan: As above. (10) Anemia, chronic disease: Status: Chronic Assessment and plan: With evidence of iron deficiency - s/p venofer x1 on this admission. (11) Hypokalemia: Status: Acute Assessment and plan: replete with IVF. (12) Acute bacterial conjunctivitis of right eye: Status: Acute Assessment and plan: Continue ophthalmic erythromycin (13) Adult failure to thrive: Status: Acute Assessment and plan: Palliative care following and hospice has been previously discussed if the patient's PO intake does not improve. (14) DVT prophylaxis: Status: Acute Assessment and plan: SCDs only if not uncomfortable. Chemical DVT ppx is contraindicated in setting of acute GI bleeding (15) Discharge planning issues: Status: Acute Assessment and plan: DNR/DNI Palliative care consulted. Expected to return home on discharge, possibly on hospice. Subjective Subjective Interval history since last seen: IV lost yesterday afternoon and placed again last evening. IV lost again today and replaced this afternoon. Chilo is still not eating or taking medications. Exam Narrative Exam Narrative: General: cachectic male is resting in bed, grimaces when I examine his abdomen HEENT: keeps eyes closed, MMM Heart: RRR, no m/r/g Lungs: CTAB Abdomen: soft, nondisteded, scaphoid, grimacing when I press on epigastrium Extremities: no edema, contracted extremities. Objective Last Vital Signs Temp 36.6 C 12/07/22 11:01 Pulse 68 12/07/22 07:01 Resp 16 12/07/22 03:05 BP 94/54 L 12/07/22 11:01 Pulse Ox 100 12/07/22 07:01 Laboratory Results - last 24 hr 12/06/22 12/06/22 12/07/22 20:40 20:40 06:25 WBC 7.13 RBC 4.49 Hgb 9.8 L Hct 32.8 L MCV 73 L MCH 21.8 L MCHC 29.9 L RDW 20.2 H Plt Count MPV Immature Gran % 0.8 Neutrophils % 71.3 Lymphocytes % 16.7 Monocytes % 8.0 Eosinophils % 2.5 Basophils % 0.7 Nucleated RBC % 0.3 Absolute Neutrophils 5.08 Absolute Lymphocytes 1.19 L Absolute Monocytes 0.57 Absolute Eosinophils 0.18 Absolute Basophils 0.05 Anisocytosis 2+ Microcytosis 2+ Sodium 146 H 145 Potassium 3.2 L 3.3 L Chloride 111 H 111 H Carbon Dioxide 23.2 24.3 Anion Gap 11.8 H 9.7 BUN 2 L 3 L Creatinine 0.5 L 0.7 Est GFR (CKD-EPI 2020) 133.06 120.20 Glucose 100 100 Calcium 9.6 9.2 Magnesium 1.8 1.6 L 12/07/22 06:25 WBC 5.66 RBC 4.14 L Hgb 9.0 L Hct 30.6 L MCV 74 L MCH 21.7 L MCHC 29.4 L RDW 20.5 H Plt Count 263 MPV 10.7 Immature Gran % 1.4 Neutrophils % 64.8 Lymphocytes % 20.0 Monocytes % 8.7 Eosinophils % 4.4 Basophils % 0.7 Nucleated RBC % 0.4 H Absolute Neutrophils 3.67 Absolute Lymphocytes 1.13 L Absolute Monocytes 0.49 Absolute Eosinophils 0.25 Absolute Basophils 0.04 Anisocytosis Microcytosis Sodium Potassium Chloride Carbon Dioxide Anion Gap BUN Creatinine Est GFR (CKD-EPI 2020) Glucose Calcium Magnesium Time Spent with Patient Time Spent with Patient: 25-34 minutes Time was spent: preparing to see the patient(eg.review tests), obtaining and/or reviewing separately otained hiistory, ordering medications,tests, procedures, referring, communicating with other health patient centered care specialist, indepentently interpreting results, counseling the patient and care coordination
[2022-12-08] MEDS: ACETAMINOPHEN 1,000 MG/100 ML BTL 400 MG IVPB ×3 (02:12→17:29)
[2022-12-08 04:11] VITALS: BP 108/65; PULSE 64; RESP 18; TEMP 36.5; O2SAT 98
[2022-12-08] MEDS: Pantoprazole 40 MG VIAL IVP ×2 (06:05→17:29)
[2022-12-08] MEDS: CEFEPIME 1 GM in Normal Saline 50 ML IVPB ×3 (06:07→21:52)
[2022-12-08 06:45] LABS: Absolute Basophil Count 0.04 10^3/uL (0.0-0.2); Absolute Eosinophil Count 0.17 10^3/uL (0.0-0.7); Absolute Monocyte Count 0.52 10^3/uL (0.1-0.8); Absolute Neutrophil Count 4.39 10^3/uL (1.2-6.7); Basophils % 0.6; Eosinophils % 2.6; HGB 9.3 g/dL (13.5-17.5); Immature Grans % 1.5; Lymphocytes % 19.9; MCH 22.5 pg (27.0-33.0); MCV 75 fL (80-95); MPV 10.9 fL (8.0-11.0); Neutrophils % 67.4; Nucleated RBC 0.5 % (0.0-0.3); Platelet Count 275 10^3/uL (130-400); RBC 4.14 10^6/uL (4.36-5.78); RDW 20.8 % (11.8-14.1); RDW-SD 49.2 fL; WBC 6.52 10^3/uL (4.4-10.8)
[2022-12-08 07:08] LABS: Anion Gap 10.2 mmol/L (3-11); BUN 2 mg/dL (7-18); CO2 22.8 mmol/L (21.0-32.0); CREATININE 0.6 mg/dL (0.70-1.30); Chloride 112 mmol/L (98-107); Estimated GFR 125.93 (mL/min/1.73m2); Glucose 102 mg/dL (74-106); Magnesium 1.9 mg/dL (1.8-2.4); Potassium 3.3 mmol/L (3.5-5.1); Sodium 145 mmol/L (136-145)
[2022-12-08 07:09] VITALS: BP 114/63; PULSE 70; TEMP 36.8; O2SAT 99
[2022-12-08] MEDS: levETIRAcetam 1,000 MG in Normal Saline 100 ML 400 MG IVPB ×2 (09:22→21:24)
[2022-12-08] MEDS: POTASSIUM CHLORIDE/D5-0.45NACL 1,000 ML 60 MEQ IV (10:01)
[2022-12-08 11:08] VITALS: BP 143/85; PULSE 65; TEMP 36.3; O2SAT 99
[2022-12-08 15:00] VITALS: BP 104/66; TEMP 36.2
--- NOTE | 2022-12-08 15:59 | PGE_ITS ---
Date of Service Date of service: 12/08/22 Time of Service: 16:01 Assessment and Plan Assessment and plan (1) Sepsis: Status: Acute Assessment and plan: Due to UTI and aspiration PNA, present on admission. Urine C&S from admission has apparently been lost. We are recollecting a sample today, but this is after 6 days of antibiotics I am not sure he is meaningfully improving. Blood cx w/ NGTD. Continue cefepime. (2) Aspiration pneumonia of right lung: Status: Acute Assessment and plan: Abx as above. Consider reglan to prevent reflux. (3) Acute UTI: Status: Acute Assessment and plan: as above. Present on admission. Does have a h/o nephrolithiasis. Repeating urine C&S. (4) Breakthrough seizure: Status: Acute Assessment and plan: Continue IV keppra 1 gram q12 hrs. He is not taking PO. There is a plan to trial ODT clonazepam if he is not taking oral anticonvulsants, but at a risk of worsening sedations and poorer PO intake. (5) Toxic metabolic encephalopathy: Status: Acute Assessment and plan: In setting of infection, hypernatremia, seizure. Continue current management with adjustment on fluids based on the chemistry results. (6) Acute lactic acidosis: Status: Resolved Assessment and plan: resolved with IV hydration, treatment of infection, as time passed after the seizure. (7) Acute dehydration: Status: Acute Assessment and plan: With hypernatremia and hypokalemia. Continue IVF. Sodium is better. (8) Black stool: Status: Acute Assessment and plan: Continue IV protonix. The patient's guardian and palliative care established: no EGD/no NGT. Medical therapy only. Continue to offer PO diet. (9) Acute hypernatremia: Status: Acute Assessment and plan: As above. (10) Anemia, chronic disease: Status: Chronic Assessment and plan: With evidence of iron deficiency - s/p venofer x1 on this admission. (11) Hypokalemia: Status: Acute Assessment and plan: replete with IVF. (12) Acute bacterial conjunctivitis of right eye: Status: Acute Assessment and plan: Continue ophthalmic erythromycin (13) Adult failure to thrive: Status: Acute Assessment and plan: Palliative care following and hospice has been previously discussed if the patient's PO intake does not improve. (14) DVT prophylaxis: Status: Acute Assessment and plan: SCDs only if not uncomfortable. Chemical DVT ppx is contraindicated in setting of acute GI bleeding (15) Discharge planning issues: Status: Acute Assessment and plan: DNR/DNI Palliative care consulted. Expected to return home on discharge, possibly on hospice. Subjective Subjective Interval history since last seen: Chilo has still not eaten or taken his medications. The guardian agrees to have a straight cath done for the UA. Exam Narrative Exam Narrative: General: cachectic male is resting in bed, I see mastication muscles abhijeet, grimaces when I examine his abdomen HEENT: keeps eyes closed, MMM Heart: RRR, no m/r/g Lungs: CTAB Abdomen: soft, nondisteded, scaphoid, grimacing when I press on epigastrium Extremities: no edema, contracted extremities. Objective Last Vital Signs Temp 36.2 C L 12/08/22 15:00 Pulse 65 12/08/22 11:08 Resp 18 12/08/22 04:11 BP 104/66 12/08/22 15:00 Pulse Ox 99 12/08/22 11:08 Laboratory Results - last 24 hr 12/08/22 12/08/22 06:25 06:25 WBC 6.52 RBC 4.14 L Hgb 9.3 L Hct 31.0 L MCV 75 L MCH 22.5 L MCHC 30.0 L RDW 20.8 H Plt Count 275 MPV 10.9 Immature Gran % 1.5 Neutrophils % 67.4 Lymphocytes % 19.9 Monocytes % 8.0 Eosinophils % 2.6 Basophils % 0.6 Nucleated RBC % 0.5 H Absolute Neutrophils 4.39 Absolute Lymphocytes 1.30 Absolute Monocytes 0.52 Absolute Eosinophils 0.17 Absolute Basophils 0.04 Sodium 145 Potassium 3.3 L Chloride 112 H Carbon Dioxide 22.8 Anion Gap 10.2 BUN 2 L Creatinine 0.6 L Est GFR (CKD-EPI 2020) 125.93 Glucose 102 Calcium 9.0 Magnesium 1.9 Time Spent with Patient Time Spent with Patient: 25-34 minutes Time was spent: preparing to see the patient(eg.review tests), obtaining and/or reviewing separately otained hiistory, ordering medications,tests, procedures, referring, communicating with other health district manager primary care sales, indepentently interpreting results, counseling the patient and care coordination
[2022-12-08 19:50] VITALS: BP 95/60; PULSE 59; RESP 16; TEMP 36.4; O2SAT 98
[2022-12-08] MEDS: Erythromycin Ophth Oint 3.5 GM TUBE OD (20:00)
[2022-12-08] MEDS: Normal Saline Flush 10 ML SYR IVP (21:24)
[2022-12-08 22:45] LABS: Bilirubin Negative (Negative); Blood Negative (Negative); Clarity Clear (Clear); Glucose Negative (Negative); Ketones Negative (Negative); Leukocyte Esterase Trace (Negative); Nitrite Negative (Negative); Urobilinogen 0.2 mg/dL (Up to 0.2)
[2022-12-08 22:56] LABS: Bacteria Rare HPF (Negative); C & S Indicated? C&S Done As Ordered; Casts 0-2 Hyaline LPF (Negative); Crystals Negative HPF (Negative); Epithelial Cells Rare HPF (Negative); Mucus Negative (Negative); RBC Negative HPF (0-2)
[2022-12-09] VITALS (7 sets, daily range): BP systolic 92–107; BP diastolic 53–70; PULSE 61–79; RESP 16–18; TEMP 36–36.9; O2SAT 95–100
[2022-12-09] MEDS: ACETAMINOPHEN 1,000 MG/100 ML BTL 400 MG IVPB ×3 (02:26→18:22)
[2022-12-09] MEDS: POTASSIUM CHLORIDE/D5-0.45NACL 1,000 ML 60 MEQ IV ×2 (03:49→22:47)
[2022-12-09] MEDS: Pantoprazole 40 MG VIAL IVP ×2 (05:58→18:23)
[2022-12-09] MEDS: Normal Saline Flush 10 ML SYR IVP ×3 (05:58→18:23)
[2022-12-09] MEDS: CEFEPIME 1 GM in Normal Saline 50 ML IVPB ×3 (06:00→21:55)
[2022-12-09 06:18] LABS: HCT 31.7 % (40.0-50.0); HGB 9.2 g/dL (13.5-17.5); MCV 76 fL (80-95); MPV 10.2 fL (8.0-11.0); Platelet Count 253 10^3/uL (130-400); RBC 4.18 10^6/uL (4.36-5.78); RDW-SD 49.4 fL; WBC 4.87 10^3/uL (4.4-10.8)
[2022-12-09 06:32] LABS: BUN 2 mg/dL (7-18); CREATININE 0.6 mg/dL (0.70-1.30); Calcium 9.1 mg/dL (8.5-10.1); Chloride 110 mmol/L (98-107); Estimated GFR 125.93 (mL/min/1.73m2); Glucose 108 mg/dL (74-106); Magnesium 1.8 mg/dL (1.8-2.4); Potassium 3.7 mmol/L (3.5-5.1); Sodium 144 mmol/L (136-145)
[2022-12-09 07:17] LABS: RDW 22.3 % (11.8-14.1)
--- NOTE | 2022-12-09 08:55 | CMPROGNOTE_ITS ---
Date of service: 12/09/22 Time of Service: 08:55 Care Management Progress Note Progress Note Text Progress Note Text: S/O: Chilo continues to be closely monitored and treated with IV ABX and IV Fluids. Per documentation, Urine C&S needed to be recollected and is pending. Palliative care following and hospice has been previously discussed if the patient's PO intake does not improve. Invasive treatment is being avoided, quality of life is a primary focus. Anticipate Chilo will return home on discharge, possibly on hospice. CM will follow. A: 37 year old male admitted to [facility] on 12/03/22 for Aspiration pneumonia, advanced care planning P:?Gio is being closely monitored and treated with IV Cefapime . Palliative is following goals of care.? Anticipate, Chilo will return home on discharge, possibly on hospice.CM will continue to follow.
[2022-12-09] MEDS: Lactated Ringers 250 ML IV (10:18)
[2022-12-09] MEDS: levETIRAcetam 1,000 MG in Normal Saline 100 ML 200 MG IVPB (10:55)
--- NOTE | 2022-12-09 12:56 | W.PM.PROGNOT ---
Date of Service Date of service: 12/09/22 Time of Service: 12:56 Assessment and Plan Assessment and plan (1) Breakthrough seizure: Status: Acute (2) Adult failure to thrive: Status: Acute (3) Aspiration pneumonia of right lung: Status: Acute (4) Sepsis: Status: Acute (5) Acute hypernatremia: Status: Acute Assessment and plan: Unfortunately, Gio continues to refuse all PO. Careteam planning to take him home. In liklihood that he will not take his PO seizure medications, will have them given 5mg diazepam [place] - plan is to have suppositories compounded for him. This may help with prolonging on time and reducing side effects. ADRs discussed including worsening sedation/worse PO intake. They will continue to use the Diazepm ME gel for breakthrough seizures and they will keep me updated closely when they go home for any needed medication dosing changes, etc. Continue 1000mg IV LEV BID while inpatient. They are planning to take him home tomorrow. Will use ME APAP for pain control as well. We will arrange f/up in neurology clinic for him. Subjective Subjective Interval history since last seen: Ashley was at bedside today and I was able to talk with her. While he has become more alert, he is still refusing all PO including water. Sodium has corrected to 144. No PO x 10 days now. They are on board with taking him home to see if he rebounds there vs needs to transition to hospice. Exam Narrative Exam Narrative: Physical Exam:? Patient awake. Some rocking. Teeth grinding.. Very small stature and head size.? No LE movements.? No moaning. No apparent distress. Looks calm. Moving arms around R>L. Objective Last Vital Signs Temp 97.0 F L 12/09/22 12:16 Pulse 72 12/09/22 12:16 Resp 16 12/09/22 12:16 BP 94/58 L 12/09/22 12:16 Pulse Ox 95 12/09/22 12:16 Laboratory Results - last 24 hr 12/08/22 12/09/22 12/09/22 21:05 06:10 06:10 WBC 4.87 RBC 4.18 L Hgb 9.2 L Hct 31.7 L MCV 76 L MCH 22.0 L MCHC 29.0 L RDW 22.3 H Plt Count 253 MPV 10.2 Sodium 144 Potassium 3.7 Chloride 110 H Carbon Dioxide 26.0 Anion Gap 8.0 BUN 2 L Creatinine 0.6 L Est GFR (CKD-EPI 2020) 125.93 Glucose 108 H Calcium 9.1 Magnesium 1.8 Urine Color Yellow Urine Clarity Clear Urine pH 6.0 Ur Specific [place] 1.020 Urine Protein Negative Urine Ketones Negative Urine Blood Negative Urine Nitrite Negative Urine Bilirubin Negative Urine Urobilinogen 0.2 Ur Leukocyte Esterase Trace H Urine RBC Negative Urine WBC 3-5 Ur Epithelial Cells Rare Urine Crystals Negative Urine Bacteria Rare Urine Casts 0-2 Hyaline Urine Mucus Negative Ur Culture Indicated? C&S Done As Ordered Urine Glucose Negative Time Spent with Patient Time Spent with Patient: 35-49 minutes Time was spent: preparing to see the patient(eg.review tests), obtaining and/or reviewing separately otained hiistory, referring, communicating with other health ocular care technologist, counseling the patient and care coordination
[2022-12-09] MEDS: Erythromycin Ophth Oint 3.5 GM TUBE OD ×2 (14:46→19:36)
--- NOTE | 2022-12-09 14:55 | W.PM.PROGNOT ---
Date of Service Date of service: 12/09/22 Time of Service: 14:56 Assessment and Plan Assessment and plan (1) Sepsis: Status: Acute Assessment and plan: Due to a likely UTI and aspiration PNA, present on admission. Urine C&S from admission has apparently been lost. A repeat urine sample collected but this is after 6 days of antibiotics Continues to refuse oral intake. Blood cx w/ NGTD. Continue cefepime. (2) Aspiration pneumonia of right lung: Status: Acute Assessment and plan: Abx as above. Cont PPI (3) Acute UTI: Status: Acute Assessment and plan: + UTI; Present on admission. Does have a h/o nephrolithiasis. Repeat urine cx pending. (4) Breakthrough seizure: Status: Acute Assessment and plan: Continue IV keppra 1 gram q12 hrs while hospitalized. Planning d/c tomorrow on BID 5mg rectal diazepam suppositories He is not taking PO. (5) Toxic metabolic encephalopathy: Status: Acute Assessment and plan: In setting of infection, hypernatremia, seizure. Continue current management with adjustment on fluids based on the chemistry results. More alert today. (6) Acute lactic acidosis: Status: Resolved Assessment and plan: resolved with IV hydration, treatment of infection, as time passed after the seizure. (7) Acute dehydration: Status: Acute Assessment and plan: With hypernatremia and hypokalemia. Continue IVF. Na and K now normalized. (8) Black stool: Status: Acute Assessment and plan: Continue IV protonix. The patient's guardian and palliative care established: no EGD/no NGT. Medical therapy only. Continue to offer PO diet. (9) Acute hypernatremia: Status: Acute Assessment and plan: As above. (10) Anemia, chronic disease: Status: Chronic Assessment and plan: With evidence of iron deficiency - s/p venofer x1 on this admission. (11) Hypokalemia: Status: Acute Assessment and plan: repleted with IVF. (12) Acute bacterial conjunctivitis of right eye: Status: Acute Assessment and plan: Continue ophthalmic erythromycin (13) Adult failure to thrive: Status: Acute Assessment and plan: Palliative care following and hospice has been previously discussed if the patient's PO intake does not improve. (14) DVT prophylaxis: Status: Acute Assessment and plan: SCDs only if not uncomfortable. Chemical DVT ppx is contraindicated in setting of acute GI bleeding (15) Discharge planning issues: Status: Acute Assessment and plan: DNR/DNI Palliative care consulted. Planning home tomorrow. Subjective Subjective Patient reports: afebrile; denies diarrhea or vomiting Interval history since last seen: Pt continues to refuse any oral intake. Exam Narrative Exam Narrative: General: cachectic male is resting in bed initially, then up in chair. Grinding teeth. HEENT: MMM. Sclera clear. Heart: RRR, no m/r/g Lungs: CTAB. Nonlabored breathing. Abdomen: soft, nondisteded, scaphoid,no reaction with compression of abd. Extremities: no edema, contracted extremities. Objective Last Vital Signs Temp 36.1 C L 12/09/22 12:16 Pulse 72 12/09/22 12:16 Resp 16 12/09/22 12:16 BP 94/58 L 12/09/22 12:16 Pulse Ox 95 12/09/22 12:16 Laboratory Results - last 24 hr 12/08/22 12/09/22 12/09/22 21:05 06:10 06:10 WBC 4.87 RBC 4.18 L Hgb 9.2 L Hct 31.7 L MCV 76 L MCH 22.0 L MCHC 29.0 L RDW 22.3 H Plt Count 253 MPV 10.2 Sodium 144 Potassium 3.7 Chloride 110 H Carbon Dioxide 26.0 Anion Gap 8.0 BUN 2 L Creatinine 0.6 L Est GFR (CKD-EPI 2020) 125.93 Glucose 108 H Calcium 9.1 Magnesium 1.8 Urine Color Yellow Urine Clarity Clear Urine pH 6.0 Ur Specific [place] 1.020 Urine Protein Negative Urine Ketones Negative Urine Blood Negative Urine Nitrite Negative Urine Bilirubin Negative Urine Urobilinogen 0.2 Ur Leukocyte Esterase Trace H Urine RBC Negative Urine WBC 3-5 Ur Epithelial Cells Rare Urine Crystals Negative Urine Bacteria Rare Urine Casts 0-2 Hyaline Urine Mucus Negative Ur Culture Indicated? C&S Done As Ordered Urine Glucose Negative Time Spent with Patient Time Spent with Patient: 25-34 minutes Time was spent: preparing to see the patient(eg.review tests), obtaining and/or reviewing separately otained hiistory, ordering medications,tests, procedures, referring, communicating with other health hospice care transitions coordinator, indepentently interpreting results, counseling the patient and care coordination
[2022-12-09] MEDS: levETIRAcetam 1,000 MG in Normal Saline 100 ML 400 MG IVPB (20:21)
[2022-12-10] MEDS: ACETAMINOPHEN 1,000 MG/100 ML BTL 400 MG IVPB (02:44)
[2022-12-10 03:27] VITALS: BP 105/63; PULSE 66; RESP 16; TEMP 36.6; O2SAT 100
--- NOTE | 2022-12-10 06:25 | NUR.NOTE ---
RN went to administer 0600 IV meds and discovered that IV access was lost. IV was leaking onto patient. RN attempted to reposition IV without success. executive producer promos notified and aware. Holding 0600 Protonix and Cefepime at this time. Will update oncoming RN. Nursing Note:
[2022-12-10 07:15] VITALS: BP 95/58; PULSE 64; TEMP 35.9; O2SAT 100
[2022-12-10] MEDS: Erythromycin Ophth Oint 3.5 GM TUBE OD ×2 (09:11→21:01)
--- NOTE | 2022-12-10 09:47 | CMDISCH_ITS ---
Date of service: 12/11/22 Time of Service: 13:00 LACE Index Scoring Tool Questions: Length of Stay (in days): 7 - 13 Was the patient admitted via the E.D.?: Yes Comorbidities: Cerebrovascular Disease (Epilepsy) E.D. Visits: 4 Answers: Total Score: 13 Risk of Readmission: High Risk Care Management Discharge Plan Reason for Hospitalization: Aspiration pneumonia, GI Bleed, Lactic acidosis Discharge Plan: Gio is discharged Back to his residence in [place] where he resides with his caregiver Ashley. He is transported by caregiver via private w/c van. He will follow up with community providers and discharge plan of care a s instructed. Patient/Family Education Needs: The following education will be provided to Gio's Guardian and caregiver; review discharge instructions, limitations, medications and plan to follow up with community providers. Discuss ask me three.
--- NOTE | 2022-12-10 10:35 | PDOC.CMPRO ---
Date of service: 12/10/22 Time of Service: 10:35 Care Management Progress Note Progress Note Text Progress Note Text: S/O: Chilo was sitting in his adaptive wheelchair when CM met with him. He was awake and started rocking back and forth when ROSANA entered the room, which Dr. Escalona visualized and determined was his normal behavior after consulting nursing. Palliative care is following and hospice has been previously discussed if the patient's PO intake does not improve. Invasive treatment is being avoided, quality of life is a primary focus. RX for Diazepam suppositories were sent to [facility] in [place] and should be available for roller picker later today or tomorrow. Anticipate, Chilo will return home after compounded RX is ready to roller picker. Plan is to admit to Hospice services if his nutrition does not improve after discharging home. ? CM will follow. A: 37 year old male admitted to [facility] on 12/03/22 for Aspiration pneumonia, advanced care planning P:?Gio is being closely monitored and treated with IV Cefapime . Palliative is following goals of care.? Anticipate, Chilo will return home on discharge, may admit to hospice in the near future if his nutrition does not improve. CM will continue to follow.
[2022-12-10 15:09] VITALS: BP 100/67; PULSE 94; RESP 16; TEMP 36.1; O2SAT 100
--- NOTE | 2022-12-10 17:07 | W.PM.PROGNOT ---
Date of Service Date of service: 12/10/22 Time of Service: 17:07 Assessment and Plan Assessment and plan (1) Breakthrough seizure: Status: Acute (2) Adult failure to thrive: Status: Acute (3) Aspiration pneumonia of right lung: Status: Acute (4) Sepsis: Status: Acute (5) Acute hypernatremia: Status: Acute Assessment and plan: Unfortunately, Chilo continues to refuse all PO and now has lost IV access. Plan is to switch to 5mg diazepam [place] BID for seizure prevention but this won't be available from the compounding pharmacy until tomorrow. In hospital we do not have any diazepam gel or ODT clonazepam. Discussion with primary team and pharmacy of trying to see if he can take small amount of liquid lorazepam orally tonight and tomorrow am to prevent seizure. Will continue to follow along. Subjective Subjective Interval history since last seen: IV access was lost this afternoon. did get am LEV. Caregiver team did not want to replace IV. Rectal diazepam suppositories will be ready tomorrow, so plan was home for tomorrow. He otherwise did end up eating some last night/evening. But nothing today unfortunately. Exam Narrative Exam Narrative: Physical Exam:? Patient awake with roving eye movements (filmed over) and nystagmus. Listening to music. Moved his left arm toward me when I said hi. Very small stature and head size.? No LE movements.? No moaning. No apparent distress. Looks calm. Objective Last Vital Signs Temp 97.0 F L 12/10/22 15:09 Pulse 94 H 12/10/22 15:09 Resp 16 12/10/22 15:09 BP 100/67 12/10/22 15:09 Pulse Ox 100 12/10/22 15:09 Time Spent with Patient Time Spent with Patient: <25 minutes Time was spent: preparing to see the patient(eg.review tests) and referring, communicating with other health medicare sales representative
--- NOTE | 2022-12-10 18:27 | W.PM.PROGNOT ---
Date of Service Date of service: 12/10/22 Time of Service: 18:27 Assessment and Plan Assessment and plan (1) Sepsis: Status: Acute Assessment and plan: Resolved Antibiotics completed. Due to a likely UTI and aspiration PNA, present on admission. Urine C&S from admission has apparently been lost. A repeat urine sample collected but this is after 6 days of antibiotics. Grew gram positive viridiana. Continues to refuse oral intake. Blood cx w/ NGTD. (2) Aspiration pneumonia of right lung: Status: Acute Assessment and plan: Stable w/o fever, cough. Normal WBC count. (3) Acute UTI: Status: Acute Assessment and plan: As above. (4) Breakthrough seizure: Status: Acute Assessment and plan: Has been refusing meds. Has been on IV Keppra but lost IV site today. Plan was to send home today with compounded rectal diazepam suppositories but the compounding pharmacy stated that the medication would be ready, at the [facility], tomorrow. He refused an oral dose of concentrated ativan, 4mg. Discussed the situation with the caregiver, Ashley. She stated it would be OK to give an IM dose of Diazepam as prevention. (5) Toxic metabolic encephalopathy: Status: Acute Assessment and plan: In setting of infection, hypernatremia, seizure. Resolving. (6) Acute lactic acidosis: Status: Resolved Assessment and plan: resolved with IV hydration, treatment of infection, as time passed after the seizure. (7) Acute dehydration: Status: Acute Assessment and plan: With hypernatremia and hypokalemia. Na and K now normalized. Now has no IV and not taking in oral medications or fluids. (8) Black stool: Status: Acute Assessment and plan: Now refusing PPI and has no IV access. (9) Acute hypernatremia: Status: Acute Assessment and plan: As above. (10) Anemia, chronic disease: Status: Chronic Assessment and plan: With evidence of iron deficiency - s/p venofer x1 on this admission. (11) Hypokalemia: Status: Acute Assessment and plan: repleted with IVF. (12) Acute bacterial conjunctivitis of right eye: Status: Acute Assessment and plan: Continue ophthalmic erythromycin (13) Adult failure to thrive: Status: Acute Assessment and plan: Palliative care following and hospice has been previously discussed if the patient's PO intake does not improve. (14) DVT prophylaxis: Status: Acute Assessment and plan: SCDs only if not uncomfortable. Chemical DVT ppx is contraindicated in setting of acute GI bleeding (15) Discharge planning issues: Status: Acute Assessment and plan: DNR/DNI Palliative care consulted. Planning home when diazepam suppositories are ready. Subjective Subjective Patient reports: afebrile; denies diarrhea or vomiting Interval history since last seen: Nonverbal patient. He accepted some oral intake of food yesterday evening but none today. Lost IV site. DPOA had made decision not to start another IV. Has been up in chair intermittently. Exam Narrative Exam Narrative: General: cachectic male sitting in chair. HEENT: MMM. Sclera clear. + nystagmus Heart: RRR, no m/r/g Lungs: CTAB. Nonlabored breathing. Abdomen: soft, nondisteded, scaphoid,no reaction with compression of abd. Extremities: no edema, contracted extremities. Objective Last Vital Signs Temp 36.1 C L 12/10/22 15:09 Pulse 94 H 12/10/22 15:09 Resp 16 12/10/22 15:09 BP 100/67 12/10/22 15:09 Pulse Ox 100 12/10/22 15:09 Time Spent with Patient Time Spent with Patient: 25-34 minutes Time was spent: preparing to see the patient(eg.review tests), obtaining and/or reviewing separately otained hiistory, ordering medications,tests, procedures, referring, communicating with other health manager intensive care, indepentently interpreting results, counseling the patient and care coordination
[2022-12-10] MEDS: diazePAM 10 MG/2 ML SYR 5 MG IM (20:51)
[2022-12-10 21:00] VITALS: BP 93/59; PULSE 92; RESP 16; TEMP 36.4; O2SAT 98
[2022-12-11 01:09] VITALS: BP 100/63; PULSE 86; RESP 20; TEMP 36.3; O2SAT 100
[2022-12-11] MEDS: Acetaminophen 650 MG SUPP PR (01:21)
[2022-12-11 05:33] VITALS: BP 112/65; PULSE 99; RESP 18; TEMP 36.4; O2SAT 97
[2022-12-11 07:31] VITALS: BP 97/58; PULSE 105; RESP 16; TEMP 36.2; O2SAT 100
[2022-12-11 11:07] VITALS: BP 102/57; PULSE 95; RESP 18; TEMP 36.2; O2SAT 98
--- NOTE | 2022-12-11 12:43 | W.PM.DS.N ---
Date of service: 12/11/22 Time of Service: 12:54 DS: Diagnosis Discharge Diagnosis (1) Sepsis: Status: Acute Asessment and Plan: Initially thought secondary to UTI. + UA. Rocephin and Vancomycin initiated in the ED. + pneumonia also; likely aspiration. Resolved. (2) Aspiration pneumonia of right lung: Status: Acute Asessment and Plan: s/p course of antibiotics. Clinically w/o symptoms. WBC count normal. Afebrile. (3) Acute UTI: Status: Acute Asessment and Plan: Urine culture grew mixed gram positive viridiana. (4) Breakthrough seizure: Status: Acute Asessment and Plan: He has been refusing oral intake, including medications. He was administered IV keppra until the day before d/c when is IV dislodged. DPOA requested that we not start another IV. The only option to give him some seizure prevention coverage was po medication, which he refused, or an IM diazepam. No Diastat availabel; on back order. A 5mg IM dose of valium administered late afternoon on 12/10. (5) Toxic metabolic encephalopathy: Status: Acute Asessment and Plan: Resolved. (6) Acute dehydration: Status: Acute Asessment and Plan: Resolved with IV hydration, but continues to refuse oral intake most of the time. (7) Black stool: Status: Acute Asessment and Plan: Hgb stable in the low 9 range. (8) Acute hypernatremia: Status: Acute Asessment and Plan: Resolved. (9) Anemia, chronic disease: Status: Chronic Asessment and Plan: As above. (10) Hypokalemia: Status: Acute Asessment and Plan: Repleted. (11) Acute bacterial conjunctivitis of right eye: Status: Acute Asessment and Plan: Antibiotic ointment treatment administered. (12) Adult failure to thrive: Status: Acute Asessment and Plan: Pt discharging. DPOA and caregiver will continue to attempt oral hydration, nourishment and medications. If he continues to refuse, the plan will be to have hospice consulted. (13) Discharge planning issues: Status: Acute Asessment and Plan: As above Home with caregivers. DNR/DNI Discharge Plan Disposition Patient Disposition: Home Condition: Poor Discharge Details Reason For Visit: Aspiration pneumonia, GI bleed, lactic acidosis, A Admit Date/Time: 12/03/22 22:27 Admit Provider: Bay Mccain Attending Provider: Bay Mccain Primary Care Provider: Pascual Johnson Hospital Course Hospital Course: 37 yr old male w/ severe cerebral palsy, hydrocephalus s/p BONUS CLERK shunt, spastic quadriplegia, non-verbal (other than some vocalizations), Mckenzie's esophagitis, recurrent UGI bleeds, who has not been eating for last few days but reportedly was drinking fluids until today. He was seen for seizure 3 days ago and evaluated at [facility] where he had some labs and had a BONUS CLERK shunt evaluation. He was discharged home but since that time he has not been eating and now has not been drinking fluids for past day and quit taking his meds. Today he had hematemsis w/ maroon colored vomitus and also had some melena stools yesterday. While being evaluated in the ED he had a seizure and was given IM Ativan. ED personel had difficult time placing and IV and had to put on in his left ankle but eventually under [place] guidance and IV was placed in his left hand. Workup revealed him to have severe gastric distension on his KUB, but d/t his combativeness and unable to rationalize w/ him, an NG was not placed and likewise an internal morrison was not placed but external [place] catheter was applied. He was resuscitated w/ normal saline x 20 mL/kg or [address] demonstrated ground glass opacities in the right lung base consistent w/ aspiration pneumonia. Labs demonstrated elevate Na+ 152, elevated AG 22, HCO3 25, BUN 17 creatinine 0.9, K+3.3, calcium 11.2, glucose 121, UA SG 1.020, trace protein, ketones >160, trace LE, WBC 20-50, RBC 5-10, neg. nitrites, mod. bacteria. Blood lactate 3.6>2.8 (after iv fluids) and CBC w/ WBC 19,000 w/ left shift and Hb 14.9 gm that dropped to 11.4 and 10 gm after further iv fluids. Patient is DNR and according to one of his caregivers, he has had multiple prior EGD but he has difficult time recovering from anesthesia after procedures that they have elected to not purusue further EGD's. ED treatment consisted of protonix 80 mg IVP, Rocephin 2 gm, normal saline. Per his caregiver, Ashley, he is DNR/DNI. See Diagnosis Home Meds and New Rx's Prescriptions: Continued epinephrine 0.3 mg/0.3 mL auto-injector 0.3 mg IM ONCE Qty: 2 1RF Rx Instructions: PRN FOR ANAPHYLAXIS pantoprazole 40 mg tablet,delayed release (DR/EC) 40 mg PO BID Qty: 180 3RF Rx Instructions: 1 TAB BID gabapentin 800 mg tablet 800 mg PO TID Qty: 270 3RF levetiracetam 750 mg tablet 750 mg PO BID Qty: 180 3RF diazepam 5-7.5-10 mg kit 5 mg DC Q12H PRN (Reason: seizure activity) Qty: 3 5RF Rx Instructions: 5mg rectally every 12 hours as needed for seizure activity greater than 30 seconds simethicone [Gas-X Extra Strength] 125 mg capsule 125 mg PO AC carbamazepine 100 mg tablet,chewable 200 mg PO TID Qty: 540 3RF bisacodyl 10 mg suppository 10 mg DC DAILY PRN (Reason: constipation) Qty: 12 2RF nystatin 100,000 unit/gram cream 1 applic TP BID PRN (Reason: intertrigo) Qty: 30 5RF acetaminophen 650 mg suppository See Rx Instructions .ROUTE .COMPLEX Qty: 100 3RF Dose Instruction: USE 650MG RECTALLY THREE TIMES A DAY NEEDED Rx Instructions: USE 650MG RECTALLY THREE TIMES A DAY NEEDED sennosides [Senna Laxative] 8.6 mg tablet 8.6 mg PO BID Qty: 180 3RF Vitamin B-6 50 mg capsule 50 mg PO DAILY Qty: 90 3RF folic acid 1 mg tablet 1 mg PO DAILY Qty: 90 3RF polyethylene glycol 3350 17 gram powder in packet 17 g PO DAILY Qty: 100 3RF melatonin 5 mg capsule 5 mg PO HS Qty: 90 3RF Lactobacillus acidophilus 100 million cell capsule 100 mmu cells PO BID Qty: 180 3RF docusate sodium 100 mg capsule 200 mg PO TID Qty: 540 3RF sucralfate 1 gram tablet 1 g PO AC Qty: 90 11RF Rx Instructions: dose reduction 06/13/22 famotidine 20 mg tablet 20 mg PO BID Qty: 180 3RF potassium chloride 20 mEq packet 20 - 40 meq PO BID Qty: 180 3RF Rx Instructions: 40 meq AM 20 meq PM pedi nutrition,iron,lact-free 0.03-1 gram-kcal/mL liquid 237 ml PO BID PRN (Reason: underweight) Qty: 7110 11RF Rx Instructions: PEDIASURE Perla Protect(dimethicone-zinc) 142 GM cream 1 gm topical PRN PRN Discharge Instructions Stand Alone Forms: Nursing Discharge Form Referrals: Pascual Johnson MD [Primary Care Provider] - 12/18/22 9:00 am Activity:: Full assist with transfer Equipment/Supplies:: No Equipment Needed Diet:: As Tolerated Discharge Orders Discharge Orders: Discharge Order (Routine); Ordered 12/11/22 Ordered By: Ramiro Escalona DS: Summary Time Spent with Patient providing and/or coordinating discharge services: Greater than 30 minutes Status at Discharge Functional status at discharge: bed bound Overall status at discharge: patient is not back to baseline Mental Status: other (Severe developmental disorder. Nonverbal.) Speech and Movement: mute Mood: other (Severe developmental disorder. Nonverbal.) Affect: blunted Exam Narrative Exam Narrative: General: cachectic male lying in bed. Opens eyes to verbal stimuli. HEENT: MMM. Sclera clear. + nystagmus Heart: RRR, no m/r/g Lungs: CTAB. Nonlabored breathing. Abdomen: soft, nondisteded, scaphoid,no reaction with compression of abd. Extremities: no edema, contracted extremities. Psych Mental Status: other (Severe developmental disorder. Nonverbal.) Speech and Movement: mute Mood: other (Severe developmental disorder. Nonverbal.) Affect: blunted DS: Data Vitals/I&O Vitals and I&O: Vital Signs Temperature 36.2 C L 12/11/22 11:07 Temperature Source Tympanic 12/11/22 11:07 Pulse 95 H 12/11/22 11:07 Pulse Rhythm Regular 12/11/22 08:00 Pulse 129 H 12/03/22 18:40 Respiratory Rate 18 12/11/22 11:07 Respiratory Effort Normal, Non-Labored 12/11/22 08:00 Respiratory Depth Normal 12/11/22 08:00 Respiratory Pattern Normal 12/11/22 08:00 Blood Pressure 102/57 L 12/11/22 11:07 Blood Pressure Mean 85 12/03/22 18:30 Blood Pressure Position Sitting 12/03/22 15:22 Pulse Oximetry 98 12/11/22 11:07 Oxygen Delivery Method Room Air 12/11/22 11:07 Oxygen Flow Rate 0 12/11/22 11:07 Fraction of Inspired Oxygen (FIO2) 21 12/04/22 17:31 Pain Level 0 12/06/22 16:00 Comment RN Notified 12/09/22 04:15 Intake & Output 12/10/22 12/11/22 12/11/22 23:59 11:59 23:59 Intake Total 226 / 951 0 / 0 Balance 226 / 951 0 / 0 Intake: IV 226 / 951 Oral 0 / 0 Other: Urine Color Yellow Urine Appearance Clear Comment unmeasured Voiding Methods Diaper Urinal Incontinent Diaper PFSH All Active Problems Toxic metabolic encephalopathy (Acute) Adult failure to thrive (Acute) DVT prophylaxis (Acute) Discharge planning issues (Acute) ACP (advance care planning) (Acute) Encounter for hospice care discussion (Acute) Acute bacterial conjunctivitis of right eye (Acute) Difficult intravenous access (Acute) Breakthrough seizure (Acute) Thrombocytosis (Acute) Acute dehydration (Acute) Aspiration pneumonia of right lung (Acute) Black stool (Acute) Bilateral kidney stones (Acute) Hip pain, right (Acute) Pneumonia (Acute) Acute UTI (Acute) Sepsis (Acute) Aspiration pneumonia (Acute) Sepsis syndrome (Acute) Breakthrough seizure (Acute) With prolonged Postictal state, resolved. [facility] 06/02/22 Hypokalemia (Acute) [facility] 06/01/22. Acute hypernatremia (Acute) [facility] 06/02/22 Gallbladder sludge (Acute) Goals of care, counseling/discussion (Acute) Palliative care patient (Acute) POLST (Physician Orders for Life-Sustaining Treatment) (Acute) DNI (do not intubate) (Acute) DNR (do not resuscitate) (Acute) Weight loss (Acute) Anxiety in acute stress reaction (Acute) Dental caries extending into dentin (Acute) Anemia (Chronic) Right nephrolithiasis (Chronic) Seizure (Acute) Status post ventriculoperitoneal shunt (Chronic) Vitamin D deficiency (Chronic) Focal epilepsy with impairment of consciousness, intractable (Chronic) Mental retardation (Chronic) non verbal incontinent bladder and bowel Idiopathic scoliosis (Chronic) Hydrocephalus (Chronic 04/30/14) 2014 BONUS CLERK shunt malfunction and new shunt inserted [place] [facility] [place] Bowel and bladder incontinence (Chronic 01/28/14) 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 femoral resections H/O nephrostomy History of lung surgery unknown; large scar on chest History of surgical procedure S/P ureteral stent placement (~06/28/18) 06/28/18 [facility] [place]; LEFT-kb SHUNT BONUS CLERK SHUNT; revision in 2014 Status post laser lithotripsy of ureteral calculus Family History Mother , AGE 40 Cancer Father No problems noted. Sister Cancer Maternal Grandfather , AGE 73 Cancer Maternal Grandmother , AGE 77 Cancer Brother , MVA AGE 10 No problems noted. Social History Smoking/Tobacco Use Status: Never Smoking risk assessment performed?: Yes Alcohol Intake: never Drug use: Never Substance use type: does not use Caregiver/Support person: Yes Household members: caregiver Housing: house Number of Children: 0 Pets and animals: Yes Pets and animals: dog(s) Sexually active: No What is your relationship status?: never How often do you talk on the phone with friends or family?: never How often do you get together with friends or relatives?: decline to answer How often do you attend mu-ism or sabianist services?: decline to answer Do you belong to any clubs or organized social groups?: decline to answer Panel score (0-1 are the most socially isolated patients): 0 What type of physical activity do you participate in: other Details: bouncing Duration: < 15 minutes/day Latonya/Amish: None Special latonya needs: No Seatbelt use: always Drive intox or ride w/intox stock car driver: No Do you feel safe at home: Yes Do you feel safe in your relationship?: Yes Time Spent with Patient Time Spent with Patient: 45-69 minutes Time was spent: preparing to see the patient(eg.review tests), obtaining and/or reviewing separately otained hiistory, ordering medications,tests, procedures, referring, communicating with other health wound care nurse, indepentently interpreting results, counseling the patient and care coordination
== END 2022-12-11 13:33 | disposition home or self-care (01) | DRG 871 ==
LOC: ER 22:42 → MS 23:24
PROVIDERS: Internal Medicine; Admitting Provider Internal Medicine; Emergency Provider Emergency Medicine; PCP Family Medicine; Visit Provider Internal Medicine
DX: A41.9 Sepsis, unspecified organism (principal); G92.8 Other toxic encephalopathy; J69.0 Pneumonitis due to inhalation of food and vomit; N39.0 Urinary tract infection, site not specified; E87.21 Acute metabolic acidosis; K92.1 Melena; E87.0 Hyperosmolality and hypernatremia; Z68.1 Body mass index [BMI] 19.9 or less, adult; G91.9 Hydrocephalus, unspecified; G40.119 Localization-related (focal) (partial) symptomatic epilepsy and epileptic syndromes with simple partial seizures, intractable, without status epilepticus; E86.0 Dehydration; D63.8 Anemia in other chronic diseases classified elsewhere; E87.6 Hypokalemia; Z66 Do not resuscitate; R63.4 Abnormal weight loss; Z80.0 Family history of malignant neoplasm of digestive organs; Z98.2 Presence of cerebrospinal fluid drainage device; K22.70 Barrett's esophagus without dysplasia; D75.839 Thrombocytosis, unspecified; N20.0 Calculus of kidney; F41.1 Generalized anxiety disorder; F43.0 Acute stress reaction; E55.9 Vitamin D deficiency, unspecified; H54.3 Unqualified visual loss, both eyes; R15.9 Full incontinence of feces; R32 Unspecified urinary incontinence; M41.20 Other idiopathic scoliosis, site unspecified; F79 Unspecified intellectual disabilities; H10.31 Unspecified acute conjunctivitis, right eye
CPT/HCPCS: 36415; 51702; 71250; 80048; 80053; 80076; 83690; 84145; 85027; 86850; 86900; 86901; 87040; 87637; 87641; 96372; 96375; 96376; 99285; 99291; 70450; 72125; 74018; 74176; 80156; 81003; 81015; 82607; 82728; 82746; 83540; 83550; 83605; 83735; 85014; 85018; 85025; 87086; 94640; 94760; 99223; 99232; 99239; J0131; J1756; J1953; J2060; J2405; J3360; J3475; J3480; J3490; J7620

== ENCOUNTER 2023-11-24 01:03 | Outpatient (CLI) | payer MEDICAID, SELFPAY ==
--- NOTE | 2023-11-24 07:45 | DI.RAD_ITS ---
Exam(s) XR ABDOMEN FLAT PLATE EXAM: 2D digital imaging was performed. CLINICAL HISTORY: monitor known stones,bilat,n20.0. COMPARISON: CR XR ABDOMEN FLAT PLATE from 12/05/2022 TECHNIQUE: Supine views of the abdomen performed. FINDINGS: BOWEL GAS PATTERN: Nondistended. Large quantity of fecal material noted throughout colon. CALCIFICATIONS: Innumerable calcifications throughout both kidneys. OSSEOUS STRUCTURES: Severe scoliosis. Chronic hip deformities. OTHER FINDINGS: CALCINER FEEDER shunt. IMPRESSION: 1. Nonobstructive bowel gas pattern. Large quantity of stool 2. Innumerable bilateral renal calculi. DATA REPOSITORY: RADIATION DOSE DELIVERED:
--- NOTE | 2023-11-24 07:45 | DI.US_ITS ---
Exam(s) US RENAL EXAM: US RENAL CLINICAL HISTORY: monitor known stones,bilat,n20.0. TECHNIQUE: Gagnon scale, color and spectral Doppler were used. COMPARISON: CT CT CHEST/ABD/PEL W from 08/03/2022 CR XR ABDOMEN FLAT PLATE from 12/05/2022 CR XR ABDOMEN FLAT PLATE from 11/24/2023 FINDINGS: Right kidney: 6.8cm Echogenicity: Normal Hydronephrosis: No Cyst or mass: No Nephrolithiasis: Innumerable dense shadowing foci consistent with multiple stones. Left kidney: 7.9cm Echogenicity: Normal Hydronephrosis: No Cyst or mass: No Nephrolithiasis: Innumerable dense shadowing foci consistent with multiple stones. Bladder:Normal. Both ureteral jets visualized. Prevoid vol:100 cc Postvoid vol:Not performed. Patient unable to void. IMPRESSION: Innumerable bilateral renal calculi. DATA REPOSITORY:
== END 2023-11-24 01:23 ==
LOC: DI 01:03
PROVIDERS: PCP Family Medicine; Visit Provider Urology
DX: N20.0 Calculus of kidney (principal)
CPT/HCPCS: 76770; 74018

== ENCOUNTER 2024-12-01 01:53 | Outpatient (CLI) | payer MEDICAID, SELFPAY ==
--- NOTE | 2024-12-01 06:00 | DI.US_ITS ---
Exam(s) US RENAL EXAM: US RENAL CLINICAL HISTORY: ? hydronephrosis,BILAT KIDNEY STONES,N20.0. TECHNIQUE: Gagnon scale, color and spectral Doppler were used. COMPARISON: CT CT CHEST/ABD/PEL WO from 12/03/2022 US US RENAL from 11/24/2023 FINDINGS: Renal size in cm: Right: 8.2. Left: 8.6. Echogenicity: Normal. Hydronephrosis: There is mild left hydronephrosis. Cyst or mass: No. Nephrolithiasis: There are bilateral echogenic foci consistent with nonobstructing stones. Other findings: Note is made of a 1.2 cm gallstone. Bladder:Normal. Ureteral jets: Right: Not visualized on this examination. Left: Visualized and unremarkable. Prevoid vol:72 cc Postvoid vol:The patient was unable to void during the examination. Prostate: 18 cc Renal color flow: Symmetric and within normal limits. IMPRESSION: 1. Bilateral nephrolithiasis. 2. Mild left hydronephrosis. 3. Cholelithiasis. DATA REPOSITORY:
--- NOTE | 2024-12-01 06:00 | DI.RAD_ITS ---
Exam(s) XR ABDOMEN FLAT PLATE EXAM: XR ABDOMEN FLAT PLATE CLINICAL HISTORY: monitor known stones,BILAT N20.0. TECHNIQUE: 2D digital imaging was performed. COMPARISON: CR XR ABDOMEN FLAT PLATE from 11/24/2023 FINDINGS: AP supine view the abdomen-pelvis Scoliosis convex left again noted as well as chronic hip deformities previously documented and ventriculoperitoneal shunts. Bowel gas pattern is unchanged from prior studies. With respect to the bilateral renal calculi, these exhibit little if any significant change compared to prior image of November 2023. There are no obvious calculi seen along the course of the ureters. Phleboliths are again noted in both sides of the pelvis. IMPRESSION: Stable appearance DATA REPOSITORY: RADIATION DOSE DELIVERED:
== END 2024-12-01 02:13 ==
LOC: DI 01:54
PROVIDERS: PCP Family Medicine; Visit Provider Urology
DX: N20.0 Calculus of kidney (principal); N13.39 Other hydronephrosis
CPT/HCPCS: 76770; 74018